=== PATIENT | male | born 1955 | race Caucasian/White ===

== ENCOUNTER → 2018-06-01 08:50 | Outpatient (CLI) | payer MEDICARE, BC, SELFPAY ==
--- NOTE | 2018-06-01 09:20 | RAD_ITS ---
STUDY: SWALLOWING STUDY REASON FOR EXAM: Male, 62 years old. Aspiration pneumonia. TECHNIQUE: The examination was performed with Speech Pathology in attendance. Under fluoroscopic observation, the patient ingested thin barium, thick barium, barium pudding, and barium coated cracker. FLUOROSCOPY TIME: 1:54 minutes/seconds. [id number] images were obtained. RADIOLOGIST INVOLVEMENT: Radiologist was present and providing direct supervision. COMPARISON: None. FINDINGS: The following was observed during swallowing of the various mixtures of barium: Thin Barium: Side aspiration with ingestion of thin liquids during sequential swallowing. This improves with the chin tuck maneuver. Thick Barium: There was no evidence of aspiration or laryngeal penetration. Barium Pudding: There was no evidence of aspiration or laryngeal penetration. RAD/Swallowing Function w/Video IMPRESSION: Side aspiration with sequential swallows of thin liquids. This improves with the chin tuck maneuver. The swallow study findings were discussed with the patient by the speech pathologist at the conclusion of the examination. Please see speech pathology report for more information and recommendations. Electronically Signed: Micky Leggett MD at 10:17 EST Tel [phone], Service support ,
--- NOTE | 2018-06-01 10:34 | SP.MBSS_ITS ---
PRIMARY / SECONDARY DIAGNOSIS: GERD, Talamantes's Esophagus REFERRING PHYSICIAN: Dr. Jordan Zepeda CURRENT DIET: Regular Textures/Thin Liquids DENTITION: upper partial MENTAL STATUS: WFL RESPIRATORY STATUS: O2 via room air PREVIOUS MODIFIED BARIUM SWALLOW STUDY: N/A REASON FOR REFERRAL: Increased coughing the last two months MEDICAL HISTORY: HTN, HLD, GERD, Talamantes's Esophagus, migraines, DVT, CAD, GI Bleed STUDY FINDINGS: Patient participated in a Modified Barium Swallow (MBS) study on 06/01/2018. Dr. Leggett was the radiologist present for this evaluation. This study was recorded in the lateral view and images were sent to PACs for storage. The following consistencies were presented to this patient for analysis of oropharyngeal swallow function: thin liquids, nectar thick liquids, and honey thick liquids. Results of the MBS are as follows: PENETRATION / ASPIRATION SCALE (THORNTON): 1 = does not enter airway 2 = enters airway/above vocal folds/ejected 3 = enters airway/above vocal folds/not ejected 4 = enters airway/contacts vocal folds/ejected 5 = enters airway/contacts vocal folds/not ejected 6 = enters airway/below vocal folds/ejected 7 = enters airway/below vocal folds/not ejected despite effort 8 = enters airway/below vocal folds/no effort PENETRATION / ASPIRATION SCALE (SCORE): 1) honey thick liquid via teaspoon= 2 2) honey thick liquid via single sip from cup= 2 3) Surfside thick liquid via single sip from cup= 2 4) Thin Liquid via single sip from cup= 8 5) Thin Liquid via single sip from cup= 4 6) Thin Liquid via larger sequential sips from cup= 8 7) Surfside thick liquid via single sip from cup= 4 8) Surfside thick liquid via sequential sips from cup= 4 9) Surfside thick liquid via cup= 2 10) Surfside thick liquid via cup= 4 11) Thin Liquid via single sip from cup with chin tuck= 2 12) Thin Liquid via single sip from cup with chin tuck= 4 IMPRESSION: mild-moderate oropharyngeal dysphagia (R13.12) ORAL PHASE CHARACTERIZED BY: LABIAL SEAL: no labial escape TONGUE CONTROL DURING BOLUS MANIPULATION: *Textures not trialed at this time BOLUS PREPARATION / MASTICATION: *Textures not trialed at this time BOLUS TRANSPORT / LINGUAL MOTION: *Textures not trialed at this time ORAL RESIDUE: complete oral clearance PHARYNGEAL PHASE CHARACTERIZED BY: INITIATION OF PHARYNGEAL SWALLOW: bolus head at posterior laryngeal surface of epiglottis at first hyoid excursion SOFT PALATE ELEVATION: no bolus between soft palate and pharyngeal wall LARYNGEAL ELEVATION: partial superior movement of thyroid cartilage/partial approximation of arytenoids cartilage to epiglottic petiole ANTERIOR HYOID EXCURSION: partial anterior movement EPIGLOTTIC MOVEMENT: partial epiglottic inversion LARYNGEAL VESTIBULE CLOSURE AT HEIGHT OF SWALLOW: incomplete laryngeal vestibule closure with narrow column of air/contrast in laryngeal vestibule PHARYNGEAL STRIPPING WAVE: pharyngeal stripping wave present / complete PHARYNGOESOPHAGEAL SEGMENT OPENING: complete distension and complete duration with no obstruction of flow TONGUE BASE RETRACTION:trace column of contrast between tongue base and posterior pharyngeal wall PHARYNGEAL RESIDUE: trace residue within or on pharyngeal structures ESOPHAGEAL PHASE CHARACTERIZED BY: ESOPHAGEAL BOLUS CLEARANCE IN THE UPRIGHT POSITION: could not view EFFECTS OF TREATMENT STRATEGIES ATTEMPTED: Chin tuck posture = moderately effective (still with penetration) DIET TEXTURE RECOMMENDATIONS: Will recommend a regular textured, nectar thick liquid diet COMPENSATORY STRATEGIES RECOMMENDED: reduced bolus volume, reduced rate of intake, avoid straws, seated upright at 90 degrees during PO intake, remain upright for 30-60 minutes post meal (GERD precaution), medications with liquid chaser or puree per patient preference. INTERPRETATION OF RESULTS: Patient presents with mild-moderate oropharyngeal dysphagia (R13.12). Oral phase primarily marked by slight swallow onset delay resulting in premature bolus loss. No trials of textures completed this date as patient's concern was mostly regarding liquid consumption with coughing at home. Pharyngeal phase primarily marked by reduced closure of the airway during deglutition attributed to reduced laryngeal elevation and hyoid excursion resulting in insufficient epiglottic inversion. With trials of thin liquids, patient noted to SILENTLY ASPIRATE despite symptoms at home being overt per patient report. Symptoms somewhat ameliorated with small sip quantities and use of chin tuck posture, however penetration still noted. No overt or silent aspiration noted with nectar thick or honey thick liquid trials in various quantities trialed. The patient has history of Talamantes's Esophagus and GERD with concern that refluxed contents may also be aspirated due to insufficient airway closure. Important to note during this date's assessment that the patient did SILENTLY aspirate with thin liquids, with clinical assessment at bedside relying on identification of classic overt signs and symptoms of aspiration unreliable. RECOMMENDATIONS: Would strongly discourage advancement past nectar thickened liquids without completion of a repeat modified barium swallow study due to the extent of aspirate identified that was SILENT in nature in 4-6 weeks. Would consider implementation of the Mclean Free Water Protocol (FFWP) following patient and family education. Patient requires intensive skilled speech-language intervention targeting continued diet texture management, training and implementation of recommended compensatory strategies, training and implementation of recommended oropharyngeal strengthening exercises to facilitate improved oropharyngeal strength and coordination. laryngeal vestibule closure / pressure and pharyngeal motility. Patient would also make an excellent candidate for the FFWP with training and patient/caregiver education. In addition, it is recommended patient received skilled speech-language intervention to complete training on thickened liquid preparation and foods to avoid all via outpatient therapy location. . REFERRALS: Would consider further referral for neurological workup as the patient reports multiple concerning neurologically based subjective complaints (i.e. pain in left side of face and neck with unexplained cause; difficulty recalling family members last name). ADDITIONAL COMMENTS/RECOMMENDATIONS: Results and recommendations were discussed with the Patient immediately following MBS completion, with the patient verbalizing understanding and agreement with all recommendations and education provided. IMAGE COUNT: [id number] Ariana Martinez M.A., CCC-QUANTITATIVE ANALYST DEVELOPER Speech Language Pathologist [facility] [address] [place] [address] [phone]
--- OUTSIDE RECORDS SUMMARY | 2018-08-03 09:12 | XMS RPT_ITS ---
:1955 Author Organization OHIP Care Team Providers Name Role Phone JORDAN PATEL Attending Unavailable JORDAN PATEL Referring Unavailable JORDAN PATEL Primary Care Unavailable JORDAN PATEL Attending Unavailable JORDAN PATEL Referring Unavailable JORDAN PATEL Primary Care Unavailable JORDAN PATEL MD Attending Unavailable JORDAN PATEL MD Primary Care Unavailable JORDAN PATEL MD Attending Unavailable JORDAN PATEL MD Primary Care Unavailable JORDAN PATEL MD Attending Unavailable JORDAN PATEL MD Primary Care Unavailable JORDAN PATEL MD Attending Unavailable JORDAN PATEL MD Primary Care Unavailable PARVEZ HAWK Attending Unavailable PARVEZ HAWK Referring Unavailable CARINE, PARVEZ E Attending Unavailable CARINE, PARVEZ E Referring Unavailable CARINE, PARVEZ E Referring Unavailable CARINE, PARVEZ E Referring Unavailable CARINE, PARVEZ Attending Unavailable CARINE, PARVEZ Referring Unavailable JORDAN PATEL Primary Care Unavailable CARINE, PARVEZ Attending Unavailable CARINE, PARVEZ Referring Unavailable JORDAN PATEL Primary Care Unavailable PROBLEMS PROBLEMS DATE TYPE CONDITION / CODE ATTENDING STATUS SOURCE 09/14/2017 Admitting Encounter for JORGE AMOR, Active [facility] Diagnosis screening for JRODAN Swapnil [facility] malignant neoplasm Repository of prostate / Z12.5(ICD-10) 09/07/2017 Active Atherosclerotic CARINE, Active [place] heart disease of [facility] Other [place] coronary [place] artery without Repository angina pectoris / I25.10(ICD-10) 09/07/2017 Active Essential (primary) CARINE, Active [place] hypertension / [facility] Other I10(ICD-10) [place] Repository 09/07/2017 Admitting Unknown / CARINE, Active [place] [facility] diagnosis UNK(Unknown) [facility] Repository PROCEDURES PROCEDURES No Procedure Records FoundRESULTS RESULTS CREATININE FINGERSTICK Collected: 06/04/2018 Status: F Source: [place] 10:37 AM [facility] REPOSITORY TYPE CODE TESTS RESULT OUT OF RANGE REFERENCE UNITS LAB L9100.0210 0.70-1.30 mg/dL Normal CREATININE WB 0.8 LAB L9100.0220 >60 mL/min EGFR WB Normal > 60.0000 Performed By: #### L9100.0200 #### [facility] Laboratory Point of Care [address] [place] [address] BRAIN W/WO CONTRAST Observed: 06/04/2018 Status: F Source: [place] 10:29 AM [facility] REPOSITORY [facility] Imaging Services [address] [place] [address] Brain W/WO Contrast MR#: [id number] Acct: [id number] Name: PARVEZ TRONCOSO Rep #: [id number] : 1955 M 62 From: Melida Trotter PCP: Jordan Patel MD Status: REG CLI Study: Brain W/WO Contrast Date of Exam: 06/04/18 Exam# [id number] Ordering Dr: Jordan Patel MD STUDY: MRI BRAIN WITH AND WITHOUT CONTRAST REASON FOR EXAM: Male, 62 years old. Rapid onset of H/A, aspiration, bowel and bladder incontinence, dizziness TECHNIQUE: Standardized multiplanar fat and water weighted pulse sequences were obtained. 7 ml of Gadavist contrast material was administered intravenously for the contrast portion of the examination. COMPARISON: January 06, 2017 FINDINGS: Normal size of the ventricles and extra-axial spaces for the patient's age. There are a limited number of small white matter hyperintensities, distributed throughout the deep white matter tracts of the cerebral hemispheres, consistent with mild chronic white matter ischemic changes. Normal bilateral basal ganglia. Normal thalami. There is no extra-axial fluid accumulation. Normal flow voids within the major intracranial circulation suggesting patency by spin echo criteria. Normal venous enhancement. There is no enhancing intra-axial or extra-axial abnormality. Normal sella turcica, pituitary gland, infundibular stalk, optic chiasm and hypothalamus. Normal tectal plate and pineal gland. Normal midbrain, wilberto and medulla. Normal cerebellum. Normal basal cisterns. Normal bilateral temporal bones. Normal bilateral internal auditory canals. No demonstrated orbital abnormality, within the constraints of a routine brain study. Normal visualized paranasal sinuses. Normal calvarium and skull base. Normal visualized soft tissue structures. Normal visualized upper cervical spine. MRI/Brain W/WO Contrast IMPRESSION: No acute intracranial abnormality or masses. Electronically Signed: Melida Trotter MD at 11:07 EST Tel , Service support , CC: Jordan Patel MD It Engineer: Signed MODIFIED BARIUM Observed: 06/01/2018 Status: F Source: [place] SWALLOW STUDY 11:38 AM [facility] REPOSITORY [facility] Speech Pathology [address] [place] [address] Modified Barium Swallow Study MR#: [id number] Acct: [id number] Name: PARVEZ TRONCOSO Rep #: [id number] : 1955 62 From: Ariana Martinez [facility]-CREDIT COUNSELOR, M.A. PRIMARY / SECONDARY DIAGNOSIS: GERD, Talamantes's Esophagus REFERRING PHYSICIAN: Dr. Jordan Patel CURRENT DIET: Regular Textures/Thin Liquids DENTITION: upper partial MENTAL STATUS: WFL RESPIRATORY STATUS: O2 via room air PREVIOUS MODIFIED BARIUM SWALLOW STUDY: N/A REASON FOR REFERRAL: Increased coughing the last two months MEDICAL HISTORY: HTN, HLD, GERD, Talamantes's Esophagus, migraines, DVT, CAD, GI Bleed STUDY FINDINGS: Patient participated in a Modified Barium Swallow (MBS) study on 06/01/2018. Dr. Leggett was the radiologist present for this evaluation. This study was recorded in the lateral view and images were sent to PACs for storage. The following consistencies were presented to this patient for analysis of oropharyngeal swallow function: thin liquids, nectar thick liquids, and honey thick liquids. Results of the MBS are as follows: PENETRATION / ASPIRATION SCALE (PERALES): 1 = does not enter airway 2 = enters airway/above vocal folds/ejected 3 = enters airway/above vocal folds/not ejected 4 = enters airway/contacts vocal folds/ejected 5 = enters airway/contacts vocal folds/not ejected 6 = enters airway/below vocal folds/ejected 7 = enters airway/below vocal folds/not ejected despite effort 8 = enters airway/below vocal folds/no effort PENETRATION / ASPIRATION SCALE (SCORE): 1) honey thick liquid via teaspoon= 2 2) honey thick liquid via single sip from cup= 2 3) [place] thick liquid via single sip from cup= 2 4) Thin Liquid via single sip from cup= 8 5) Thin Liquid via single sip from cup= 4 6) Thin Liquid via larger sequential sips from cup= 8 7) [place] thick liquid via single sip from cup= 4 8) [place] thick liquid via sequential sips from cup= 4 9) [place] thick liquid via cup= 2 10) [place] thick liquid via cup= 4 11) Thin Liquid via single sip from cup with chin tuck= 2 12) Thin Liquid via single sip from cup with chin tuck= 4 IMPRESSION: mild-moderate oropharyngeal dysphagia (R13.12) ORAL PHASE CHARACTERIZED BY: LABIAL SEAL: no labial escape TONGUE CONTROL DURING BOLUS MANIPULATION: *Textures not trialed at this time BOLUS PREPARATION / MASTICATION: *Textures not trialed at this time BOLUS TRANSPORT / LINGUAL MOTION: *Textures not trialed at this time ORAL RESIDUE: complete oral clearance PHARYNGEAL PHASE CHARACTERIZED BY: INITIATION OF PHARYNGEAL SWALLOW: bolus head at posterior laryngeal surface of epiglottis at first hyoid excursion SOFT PALATE ELEVATION: no bolus between soft palate and pharyngeal wall LARYNGEAL ELEVATION: partial superior movement of thyroid cartilage/partial approximation of arytenoids cartilage to epiglottic petiole ANTERIOR HYOID EXCURSION: partial anterior movement EPIGLOTTIC MOVEMENT: partial epiglottic inversion LARYNGEAL VESTIBULE CLOSURE AT HEIGHT OF SWALLOW: incomplete laryngeal vestibule closure with narrow column of air/contrast in laryngeal vestibule PHARYNGEAL STRIPPING WAVE: pharyngeal stripping wave present / complete PHARYNGOESOPHAGEAL SEGMENT OPENING: complete distension and complete duration with no obstruction of flow TONGUE BASE RETRACTION:trace column of contrast between tongue base and posterior pharyngeal wall PHARYNGEAL RESIDUE: trace residue within or on pharyngeal structures ESOPHAGEAL PHASE CHARACTERIZED BY: ESOPHAGEAL BOLUS CLEARANCE IN THE UPRIGHT POSITION: could not view EFFECTS OF TREATMENT STRATEGIES ATTEMPTED: Chin tuck posture = moderately effective (still with penetration) DIET TEXTURE RECOMMENDATIONS: Will recommend a regular textured, nectar thick liquid diet COMPENSATORY STRATEGIES RECOMMENDED: reduced bolus volume, reduced rate of intake, avoid straws, seated upright at 90 degrees during PO intake, remain upright for 30-60 minutes post meal (GERD precaution), medications with liquid chaser or puree per patient preference. INTERPRETATION OF RESULTS: Patient presents with mild-moderate oropharyngeal dysphagia (R13.12). Oral phase primarily marked by slight swallow onset delay resulting in premature bolus loss. No trials of textures completed this date as patient's concern was mostly regarding liquid consumption with coughing at home. Pharyngeal phase primarily marked by reduced closure of the airway during deglutition attributed to reduced laryngeal elevation and hyoid excursion resulting in insufficient epiglottic inversion. With trials of thin liquids, patient noted to SILENTLY ASPIRATE despite symptoms at home being overt per patient report. Symptoms somewhat ameliorated with small sip quantities and use of chin tuck posture, however penetration still noted. No overt or silent aspiration noted with nectar thick or honey thick liquid trials in various quantities trialed. The patient has history of Talamantes's Esophagus and GERD with concern that refluxed contents may also be aspirated due to insufficient airway closure. Important to note during this date's assessment that the patient did SILENTLY aspirate with thin liquids, with clinical assessment at bedside relying on identification of classic overt signs and symptoms of aspiration unreliable. RECOMMENDATIONS: Would strongly discourage advancement past nectar thickened liquids without completion of a repeat modified barium swallow study due to the extent of aspirate identified that was SILENT in nature in 4-6 weeks. Would consider implementation of the [place] Free Water Protocol (FFWP) following patient and family education. Patient requires intensive skilled speech-language intervention targeting continued diet texture management, training and implementation of recommended compensatory strategies, training and implementation of recommended oropharyngeal strengthening exercises to facilitate improved oropharyngeal strength and coordination. laryngeal vestibule closure / pressure and pharyngeal motility. Patient would also make an excellent candidate for the FFWP with training and patient/caregiver education. In addition, it is recommended patient received skilled speech-language intervention to complete training on thickened liquid preparation and foods to avoid all via outpatient therapy location. . REFERRALS: Would consider further referral for neurological workup as the patient reports multiple concerning neurologically based subjective complaints (i.e. pain in left side of face and neck with unexplained cause; difficulty recalling family members last name). ADDITIONAL COMMENTS/RECOMMENDATIONS: Results and recommendations were discussed with the Patient immediately following MBS completion, with the patient verbalizing understanding and agreement with all recommendations and education provided. IMAGE COUNT: [id number] Ariana Martinez M.A., CCC-CREDIT COUNSELOR Speech Language Pathologist [address] [address] [email or web address] [phone] 06/01/18 1138 <Electronically signed by Ariana Martinez CCC-CREDIT COUNSELOR, MRoniA.> Date Ariana Martinez CCC-CREDIT COUNSELOR, M.A. Co-Signature Required for all Medicare patients Date/Time Co-Signature CC: SWALLOWING FUNCTION Observed: 06/01/2018 Status: F Source: [place] Olsen/VIDEO 8:57 AM [facility] REPOSITORY [facility] Imaging Services [address] [place] [address] Swallowing Function w/Video MR#: [id number] Acct: [id number] Name: PARVEZ TRONCOSO Rep #: [id number] : 1955 M 62 From: Micky Leggett MD PCP: Jordan Patel MD Status: REG CLI Study: Swallowing Function w/Video Date of Exam: 06/01/18 Exam# [id number] Ordering Dr: Jordan Patel MD STUDY: SWALLOWING STUDY REASON FOR EXAM: Male, 62 years old. Aspiration pneumonia. TECHNIQUE: The examination was performed with Speech Pathology in attendance. Under fluoroscopic observation, the patient ingested thin barium, thick barium, barium pudding, and barium coated cracker. FLUOROSCOPY TIME: 1:54 minutes/seconds. 1792 images were obtained. RADIOLOGIST INVOLVEMENT: Radiologist was present and providing direct supervision. COMPARISON: None. FINDINGS: The following was observed during swallowing of the various mixtures of barium: Thin Barium: Side aspiration with ingestion of thin liquids during sequential swallowing. This improves with the chin tuck maneuver. Thick Barium: There was no evidence of aspiration or laryngeal penetration. Barium Pudding: There was no evidence of aspiration or laryngeal penetration. RAD/Swallowing Function w/Video IMPRESSION: Side aspiration with sequential swallows of thin liquids. This improves with the chin tuck maneuver. The swallow study findings were discussed with the patient by the speech pathologist at the conclusion of the examination. Please see speech pathology report for more information and recommendations. Electronically Signed: Micky Leggett MD at 10:17 EST Tel [phone], Service support , CC: Jordan Patel MD It Engineer: Signed XR UPPER GI Observed: 05/06/2018 Status: F Source: [place] 8:15 AM [facility] REPOSIT[facility] ORIGINAL XR UPPER GI Clinical Statement: Gastroesophageal reflux disease Comparison: CT abdomen pelvis 03/30/2017 Procedure: A standard double contrast upper GI was performed. In addition, due to patient description of symptomatology, dedicated lateral views of the upper esophagus were obtained prior to crystal administration. Contrast is seen spilling into the pharynx and upper esophagus prior to patient's initiation of swallowing. There was deep laryngeal penetration identified without discrete aspiration seen on these limi robert views. However, the patient did cough after swallowing raising suspicion for a small amount of unseen aspiration. The esophagus is structurally normal. The esophageal mucosa appears normal. No esophageal dysmotility is realized. The stomach demonstrates normal distensibility. No mass or ulceration is identified. The duodenal bulb and sweep are unremarkable. No gastroesophageal reflux was demonstrated during this examination, despite the performance of maneuvers to elicit GE reflux. No hiatal hernia is identified. Fluoroscopy time: 2 minutes 17 seconds Number of images: 25 Number of films: 6 Dose: 2742.3 [email or web address] IMPRESSION: 1. Deep laryngeal penetration with coughing after swallowing raising suspicion of unseen aspiration. The patient may benefit from a dedicated modified barium swallow evaluation with speech pathology, es pecially given spillage of contrast into the pharynx and upper esophagus prior to the initiation of swallowing. 2. No gastroesophageal reflux was identified despite maneuvers designed to elicit reflux. Interpreted By: Maren Bedolla MD Preliminary Report By: Maren Bedolla MD Electronically Signed By: Maren Bedolla MD Dictated Date: 05/06/2018 9:32:57 AM Prelim Date: 05/06/2018 9:32:57 AM Sign Date: 05/06/2018 9:42:15 AM CAION Collected: 04/23/2018 Status: F Source: [place] 1:16 PM [facility] REPOSITORY TYPE CODE TESTS RESULT OUT OF REFERENCE UNITS RANGE LAB CAION(LOINC 1.12-1.32 mmol/L ) Calcium 1.17 Ionized Performed By: #### CAION, CBC, ADIFF, ANEU #### [place] [address] [place], [place] [address] #### CMP, GFR #### [address] [address] CBC Collected: 04/23/2018 Status: F Source: [facility] 1:16 PM [facility] REPOSITORY TYPE CODE TESTS RESULT OUT OF REFERENCE UNITS RANGE LAB WBC(LOINC) 4.60-10.80 10 3/mcL WBC 9.70 LAB RBCCT(LOINC 4.04-6.13 10 6/mcL ) RBC 4.97 LAB HGB(LOINC) 14.0-18.0 G/dL Hgb 15.6 LAB HCT(LOINC) 42.0-52.0 % Hct 45.3 LAB MCV(LOINC) 80.0-94.0 fL MCV 91.2 LAB MCH(LOINC) 27.0-31.2 pg High MCH 31.4 LAB MCHC(LOINC) 31.8-35.4 G/dL MCHC 34.4 LAB RDW(LOINC) 11.5-14.5 % RDW 13.8 LAB PLT(LOINC) 130-400 10 3/mcL Platelet 312 LAB MPV(LOINC) 7.4-10.4 fL MPV 7.9 Performed By: #### CAION, CBC, ADIFF, ANEU #### [facility] [address] [place], [place] [address] #### CMP, GFR #### [place] [address] .AUTO DIFF Collected: 04/23/2018 Status: F Source: [facility] 1:16 PM [facility] REPOSITORY TYPE CODE TESTS RESULT OUT OF REFERENCE UNITS RANGE LAB EVA(LOINC) 37.0-80.0 % Neutrophil % 69.3 LAB LYM(LOINC) 10.0-50.0 % Lymphocyte % 21.5 LAB MON(LOINC) 1.7-13.0 % Monocyte % 7.3 LAB EO(LOINC) 0.0-7.0 % Eosinophil % 1.1 LAB BAS(LOINC) 0.0-2.5 % Basophil % 0.8 LAB ABLYM(LOIN 0.77-3.85 10 3/mcL C) Lymphocyte, 2.10 Absolute LAB FARNAZ(LOINC 0.15-1.00 10 3/mcL ) Monocyte, 0.70 Absolute LAB AEOS(LOINC 0.00-0.40 10 3/mcL ) Eosinophil, 0.10 Absolute LAB ABAS(LOINC 0.00-0.19 10 3/mcL ) Basophil, 0.10 Absolute Performed By: #### CAION, CBC, ADIFF, ANEU #### [place] [address] [place], [place] [address] #### CMP, GFR #### [address] [address] .NEUABS Collected: 04/23/2018 Status: F Source: [facility] 1:16 PM [facility] REPOSITORY TYPE CODE TESTS RESULT OUT OF REFERENCE UNITS RANGE LAB ANEU(LOINC) 2.85-6.16 10 3/mcL High Neutrophil, 6.70 Absolute Performed By: #### CAION, CBC, ADIFF, ANEU #### [place] [address] [place], [place] [address] #### CMP, GFR #### [address] [address] CMP Collected: 04/23/2018 Status: F Source: [facility] 1:16 PM [facility] REPOSITORY TYPE CODE TESTS RESULT OUT OF REFERENCE UNITS RANGE LAB GLU(LOINC) 80-115 mg/dL Glucose Level 96 LAB NA(LOINC) 136-145 mmol/L Sodium Level 139 LAB K(LOINC) 3.5-5.1 mmol/L Potassium Level 4.6 LAB CL(LOINC) 98-107 mmol/L Chloride 102 LAB CO2(LOINC) 23-31 mmol/L CO2 28 LAB EBAL(LOINC mEq/L ) Electrolyte Balance 9.0 LAB BUN(LOINC) 7-18 mg/dL BUN 18 LAB CRE(LOINC) 0.70-1.30 mg/dL Creatinine Lvl (s) 0.77 LAB BC(LOINC) 7-27 ratio BUN/Creatinine 23 Ratio LAB CA(LOINC) 8.4-10.2 mg/dL Calcium Lvl 9.1 LAB PROT(LOINC 6.4-8.2 G/dL ) Total Protein 7.9 LAB ALB(LOINC) 3.4-4.8 G/dL Albumin Level 4.4 LAB GLB(LOINC) G/dL Globulin 3.5 LAB AG(LOINC) 1.1-2.5 ratio A/G Ratio 1.3 LAB BILT(LOINC 0.2-1.0 mg/dL ) Bili Total 0.6 LAB AP(LOINC) 40-135 U/L Alk Phos 59 LAB AST(LOINC) 10-40 U/L AST/SGOT 24 LAB ALT(LOINC) 10-35 U/L ALT/SGPT High 39 Performed By: #### SANTOSH JOHNSON, AUTUMN, ANEU #### [place] [address] [place], [place] [address] #### CMP, GFR #### [address] [address] .GFR Collected: 04/23/2018 Status: F Source: [facility] 1:16 PM [facility] REPOSIT[facility] TYPE CODE TESTS RESULT OUT OF REFERENCE UNITS RANGE LAB GFRAA(LOINC ml/min/1.73 ) sqm GFR 123 [place] Result Comment: GFR Population mean for , Non- Americans Ages 20-29 = 116 mL/min/1.73 sq.m. Ages 30-39 = 107 mL/min/1.73 sq.m. Ages 40-49 = 99 mL/min/1.73 sq.m. Ages 50-59 = 93 mL/min/1.73 sq.m. Ages 60-69 = 85 mL/min/1.73 sq.m. Ages 70+ = 75 mL/min/1.73 sq.m. Chronic Kidney Disease: Less than 60 mL/min/1.73 square meters End Stage Renal Disease: Less than 15 mL/min/1.73 square meters LAB GFRNO(LOINC) ml/min/1.73sqm GFR Non- 102 Result Comment: GFR Population mean for , Non- Americans Ages 20-29 = 116 mL/min/1.73 sq.m. Ages 30-39 = 107 mL/min/1.73 sq.m. Ages 40-49 = 99 mL/min/1.73 sq.m. Ages 50-59 = 93 mL/min/1.73 sq.m. Ages 60-69 = 85 mL/min/1.73 sq.m. Ages 70+ = 75 mL/min/1.73 sq.m. Chronic Kidney Disease: Less than 60 mL/min/1.73 square meters End Stage Renal Disease: Less than 15 mL/min/1.73 square meters Performed By: #### ELIZABETH, SANTOSH, ADIFF, ANEU #### [place] [address] [place], [place] [address] #### CMP, GFR #### [facility] [address] [place] [address] PROGRESS Observed: 03/11/2018 Status: COMPLETED Source: [place] 3:[address] [facility] REPOSITORY HNO ID: [id number] Author: Rey Powers (Rcep) Service: (none) Author Type: Cloth Piecer Type: Progress Notes Filed: 03/11/2018 3:49 PM Note Text: Preliminary report complete; results under cardiac tab. BRENDA Rosales CNNURSE Observed: 03/11/2018 Status: COMPLETED Source: [place] 3:[address] [facility] REPOSITORY Nurse Visit (CAWSTR) PARVEZ TRONCOSO ([id number]) 1955 M Date Time Provider Department 03/11/18 3:00 PM NURSE [facility] CAWSTR During your visit today, we recorded the following information about you: BRENDA Rosales 03/11/2018 3:49 PM Signed Preliminary report complete; results under cardiac tab. BRENDA Rosales Referring Provider: PARVEZ HAWK [[id number]] Allergies As of Date: 03/11/2018 Noted Allergy Reaction BEES 09/07/2017 10 - Anaphylaxis DURICEF (CEFADROXIL) 11/06/2006 2 - Rash NIASPAN (NIACIN) 02/19/2012 16 - Unknown trinilin [Other] 11/06/2006 2 - Rash Date Reviewed: 02/25/2018 Reviewed by: Dipak Rock RN - Fully Assessed Primary Visit Diagnosis:Chest pain, unspecified type [R07.9] Prescriptions as of 03/11/2018 Sig: LOSARTAN 50 MG TABLET Take 50 mg by mouth once mikaela* VERAPAMIL ER 180 MG 24 HR CAP* TAKE 1 CAPSULE BY MOUTH ONCE * APIXABAN 5 MG TABLET Take 5 mg by mouth twice mikaela* PULMICORT INHALATION Inhale 2 Puffs as instructed * ALBUTEROL SULFATE HFA 90 MCG/* Inhale 2 Puffs as instructed * ROSUVASTATIN 10 MG TABLET Take 5 mg by mouth daily at b* PANTOPRAZOLE 40 MG TABLET,DEL* Take 1 tablet by mouth once d* NITROGLYCERIN 0.4 MG SUBLINGU* Dissolve 1 tablet under the t* ASPIRIN 81 MG TABLET Take 81 mg by mouth. * MULTI-VITAMIN ORAL Take by mouth once daily. Problem List As Of Date 03/11/2018 Noted Resolved Hemorrhage of gastrointestinal tract, unspecifi*INVALID FOR*08/17/2014 Talamantes's esophagus [K22.70] INVALID FOR*08/17/2014 Special screening for malignant neoplasms, colo*INVALID FOR*03/09/2015 Encounter Status:Closed by Rey TOURE on 03/11/18 BASIC METABOLIC PANL Collected: 02/25/2018 Status: F Source: [place] 3:34 PM [facility] TYPE CODE TESTS RESULT OUT OF REFERENCE UNITS RANGE LAB GLU 74-99 mg/dL Glucose High 104 LAB BUN 7-21 mg/dL BUN 15 LAB CRET 0.73-1.22 mg/dL Low Creatinine 0.63 LAB NA 136-144 mmol/L Sodium 136 LAB K 3.7-5.1 mmol/L Potassium 4.3 LAB CL 97-105 mmol/L Chloride 102 LAB CO2 22-30 mmol/L CO2 23 LAB AGAP 9-18 mmol/L Anion Gap 11 LAB CA 8.5-10.2 mg/dL Calcium, Total 9.6 LAB GFRAA eGFR- >60 Amer. LAB GFRNAA . eGFR-All Other Races >60 Result Comment: eGFR (Estimated GFR) Units of measure: mL/min/1.73 meters squared eGFR is derived from the reexpressed MDRD Study equation using the following parameters: serum creatinine, age, gender and race. The creatinine assay has been calibrated to be traceable to IDMS. An eGFR <60 mL/min/1.73m2 for >3 months is consistent with chronic kidney disease. Refer to KDOQI guidelines for clinical interpretation. In patients with unstable renal function, e.g. those with acute kidney injury, the eGFR may not accurately reflect actual GFR. MAGNESIUM Collected: 02/25/2018 Status: F Source: [place] 3:[address] [facility] REPOSITORY TYPE CODE TESTS RESULT OUT OF REFERENCE UNITS RANGE LAB MG 1.7-2.3 mg/dL Magnesium 2.1 LIPID PANEL, NONFAST Collected: 02/25/2018 Status: F Source: [place] 3:[address] [facility] REPOSITORY TYPE CODE TESTS RESULT OUT OF REFERENCE UNITS RANGE LAB CHOLNF <200 mg/dL Total Cholesterol NF 156 Result Comment: <200 mg/dL, Desirable 200-239 mg/dL, Borderline high >239 mg/dL, High LAB TRIGNF <150 mg/dL Triglycerides, NF 76 Result Comment: <150 mg/dL, Normal 150-199 mg/dL, Borderline high 200-499 mg/dL, High >499 mg/dL, Very high LAB HDLNF >39 mg/dL HDL Cholesterol, NF 48 Result Comment: 40-59 mg/dL, Acceptable >59 mg/dL, High: Negative risk factor for coronary heart disease <40 mg/dL, Low: Positive risk factor for coronary heart disease LAB LDLNF <100 mg/dL LDL Cholesterol, NF 93 Result Comment: <100 mg/dL, Optimal 100-129 mg/dL, Near optimal/above optimal 130-159 mg/dL, Borderline high 160-189 mg/dL, High >189 mg/dL, Very high Secondary prevention optimal LDL Cholesterol levels are recommended to be < 70 mg/dL LAB NOHDLN <130 mg/dL Non HDL Chol, 108 NF Result Comment: <130 mg/dL, Optimal 130-159 mg/dL, Near optimal/above optimal 160-189 mg/dL, Borderline high 190-219 mg/dL, High >219 mg/dL, Very high Secondary prevention optimal non HDL Cholesterol levels are recommended to be < 100 mg/dL LAB VLDLNF <30 mg/dL VLDL Cholesterol, NF 15 LAB TCHDLN <5.10 mg/dL T Chol/HDL Ratio NF 3.25 LAB LDLHDN <2.54 mg/dL LDL/HDL Ratio, NF 1.94 Result Comment: Reference: 1. National Cholesterol Education Program ATP III Guideline At-A-Glance Quick Desk Reference: National Heart, Lung, and Blood Sieper. National Institutes of Health. 2001: NIH Publication No. 01-3305. 2. An International Atherosclerosis Society position paper: global recommendations for the management of dyslipidemia: executive summary, Atherosclerosis. 2014: 232(2):410-413. 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/25, recurrent, lifelong A/C ADHERENCE TO GUIDELINES YVOANY-I or ARB for HF with prior LVEF<40 (NQF 0081) - N/A ASA or Plavix for ASHD (NQF 0067) - met Beta alexandra for ASHD with prior KS or prior LVEF<40 (NQF 0070) - >10 years since event Beta alexandra for HF with prior LVEF<40 (NQF 0083) - N/A YOVANY-I or ARB for ASHD with DM or prior LVEF<40 (NQF 0066) - met Statin therapy for ASHD or FHL or DM - met BMI documented and plan if >25 (NQF 0421) - lifestyle recommendation form Tobacco use screening and referral (NQF 0028) - lifestyle recommendation form Recommendation for whole food, plant based diet - lifestyle recommendation form CLINICAL IMPRESSION/PLAN: Parvez Troncoso is having chest discomfort which is concerning for possible ischemia, but apparently not severe enough to prompt him to use nitroglycerin. He was reminded of the appropriate use and I encouraged him to go to emergency department if he has any chest discomfort which is unrelieved by single nitroglycerin. He has had false positive stress ECG in the past. I advised him to undergo treadmill nuclear stress test for further evaluation of this pain syndrome. This will be compared to his stress test of 2016 He has had pericarditis in the past, but the pain is atypical and I do not hear a friction rub today. Blood pressure was somewhat high today. I've asked him to check vital signs daily and contact me next week. For the time being, he will continue his current medication. Labs will be updated today. Written and verbal health teaching given to patient, patient verbalizes understanding and agrees with treatment plan. DIAGNOSIS FOR VISIT: ASHD Hypertension HISTORY OF PRESENT ILLNESS Parvez Troncoso returns for follow-up of multiple cardiac issues, as noted above. He has had multiple episodes of chest discomfort over the last month. These are described as a pressure-like sensation in the chest with occasional radiation into the left shoulder and arm. They can occasionally be associated with nausea and shaking. However, his exercise tolerance has been unchanged. These episodes have occurred at rest. There has been no pleuritic component. He has not been evaluated in the emergency department. He has not tried any nitroglycerin. He denies orthopnea and edema. He's had no syncope, TIAs, amaurosis and claudication. He notes that he has been under more stress at home. ALLERGIES: ALLERGIES Allergen Reactions - Bees Anaphylaxis - Duricef [Cefadroxil] Rash - Niaspan [Niacin] Unknown - Trinilin [Other] Rash CURRENT OUTPATIENT MEDICATIONS: losartan (COZAAR) 50 mg tablet Take 50 mg by mouth once daily. verapamil ER 180 mg 24 hr capsule TAKE 1 CAPSULE BY MOUTH ONCE DAILY. apixaban (ELIQUIS) 5 mg tab tab(s) Take 5 mg by mouth twice daily. BUDESONIDE (PULMICORT INHALATION) Inhale 2 Puffs as instructed every morning. albuterol HFA (PROAIR HFA) 90 mcg/actuation inhaler Inhale 2 Puffs as instructed every 4 hours as needed. rosuvastatin (CRESTOR) 10 mg tablet Take 5 mg by mouth daily at bedtime. pantoprazole (PROTONIX) 40 mg tablet Take 1 tablet by mouth once daily. nitroglycerin sublingual 0.4 mg SL tablet Dissolve 1 tablet under the tongue as needed. FOR CHEST PAIN. IF NO RELIEF CALL 911 Aspirin 81 mg Tab Take 81 mg by mouth. MULTI-VITAMIN ORAL Take by mouth once daily. PHYSICAL EXAMINATION: VITAL SIGNS: BP 155/85 Pulse 62 Wt 185 lb 6.4 oz (84.1kg) Chest: Clear to auscultation. Trachea is midline. Air entry is equal. Cardiac: Regular rhythm. S1 and S2 are normal. PMI is nondisplaced. There are no murmurs, rubs or gallops. Carotids are brisk without bruits. JVP is less than 10 cm. Abdomen: Soft and nontender. There are no pulsatile masses or bruits. No liver enlargement. Bowel sounds are active. Extremities: Trace edema. Pulses are intact and symmetrical. EKG shows sinus bradycardia and evidence of previous inferior KS. There is no significant change. Recent labs reviewed. LDL is 92. Renal function is normal. Electronically Signed: Parvez Hawk MD February 25, 2018 2:16 PM CC: Jordan Patel MD EKG1 Observed: 02/25/2018 Status: F Source: [place] 1:[address] [facility] REPOSITORY NAME : PARVEZ TRONCOSO PID : [id number] : 1955 Gender : Male Race : ORD : Procedure Date : Feb 25 2018 13:49:16 Edit Date : Feb 27 2018 11:06:59 Diagnosis:SINUS BRADYCARDIA RSR' PATTERN IN V1 SUGGESTS INCOMPLETE RIGHT BUNDLE BRANCH BLOCK POSSIBLE INFERIOR MYOCARDIAL INFARCTION , AGE UNDETERMINED ABNORMAL ECG NO SIGNIFICANT CHANGE FROM PREVIOUS ECG Confirmed by PARVEZ HAWK MD ([id number]) on 02/27/2018 11:06:53 AM Ventricular Rate : 59 BPM Atrial Rate : 59 BPM P-R Interval : 166 ms QRS Duration : 86 ms Q-T Interval : 402 ms QTC Calculation(Bezet) : 397 ms P Barton : 26 degrees R Barton : -13 degrees T Barton : 34 degrees Test Reason : Location : 136 : CAR Overread By : PARVEZ HAWK MD Edited By : PARVEZ HAWK MD Referred By : PARVEZ HAWK Acquired by : ADITI MITCHELL Observed: 02/25/2018 Status: COMPLETED Source: [place] 1:[address] 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, recurrent, lifelong A/C ADHERENCE TO GUIDELINES YOVANY-I or ARB for HF with prior LVEF<40 (NQF 0081) - N/A ASA or Plavix for ASHD (NQF 0067) - met Beta alexandra for ASHD with prior KS or prior LVEF<40 (NQF 0070) - >10 years since event Beta alexandra for HF with prior LVEF<40 (NQF 0083) - N/A YOVANY-I or ARB for ASHD with DM or prior LVEF<40 (NQF 0066) - met Statin therapy for ASHD or FHL or DM - met BMI documented and plan if >25 (NQF 0421) - lifestyle recommendation form Tobacco use screening and referral (NQF 0028) - lifestyle recommendation form Recommendation for whole food, plant based diet - lifestyle recommendation form CLINICAL IMPRESSION/PLAN: Parvez Troncoso is having chest discomfort which is concerning for possible ischemia, but apparently not severe enough to prompt him to use nitroglycerin. He was reminded of the appropriate use and I encouraged him to go to emergency department if he has any chest discomfort which is unrelieved by single nitroglycerin. He has had false positive stress ECG in the past. I advised him to undergo treadmill nuclear stress test for further evaluation of this pain syndrome. This will be compared to his stress test of 2016 He has had pericarditis in the past, but the pain is atypical and I do not hear a friction rub today. Blood pressure was somewhat high today. I've asked him to check vital signs daily and contact me next week. For the time being, he will continue his current medication. Labs will be updated today. Written and verbal health teaching given to patient, patient verbalizes understanding and agrees with treatment plan. DIAGNOSIS FOR VISIT: ASHD Hypertension HISTORY OF PRESENT ILLNESS Parvez Troncoso returns for follow-up of multiple cardiac issues, as noted above. He has had multiple episodes of chest discomfort over the last month. These are described as a pressure-like sensation in the chest with occasional radiation into the left shoulder and arm. They can occasionally be associated with nausea and shaking. However, his exercise tolerance has been unchanged. These episodes have occurred at rest. There has been no pleuritic component. He has not been evaluated in the emergency department. He has not tried any nitroglycerin. He denies orthopnea and edema. He's had no syncope, TIAs, amaurosis and claudication. He notes that he has been under more stress at home. ALLERGIES: ALLERGIES Allergen Reactions - Bees Anaphylaxis - Duricef [Cefadroxil] Rash - Niaspan [Niacin] Unknown - Trinilin [Other] Rash CURRENT OUTPATIENT MEDICATIONS: losartan (COZAAR) 50 mg tablet Take 50 mg by mouth once daily. verapamil ER 180 mg 24 hr capsule TAKE 1 CAPSULE BY MOUTH ONCE DAILY. apixaban (ELIQUIS) 5 mg tab tab(s) Take 5 mg by mouth twice daily. BUDESONIDE (PULMICORT INHALATION) Inhale 2 Puffs as instructed every morning. albuterol HFA (PROAIR HFA) 90 mcg/actuation inhaler Inhale 2 Puffs as instructed every 4 hours as needed. rosuvastatin (CRESTOR) 10 mg tablet Take 5 mg by mouth daily at bedtime. pantoprazole (PROTONIX) 40 mg tablet Take 1 tablet by mouth once daily. nitroglycerin sublingual 0.4 mg SL tablet Dissolve 1 tablet under the tongue as needed. FOR CHEST PAIN. IF NO RELIEF CALL 911 Aspirin 81 mg Tab Take 81 mg by mouth. MULTI-VITAMIN ORAL Take by mouth once daily. PHYSICAL EXAMINATION: VITAL SIGNS: BP 155/85 Pulse 62 Wt 185 lb 6.4 oz (84.1kg) Chest: Clear to auscultation. Trachea is midline. Air entry is equal. Cardiac: Regular rhythm. S1 and S2 are normal. PMI is nondisplaced. There are no murmurs, rubs or gallops. Carotids are brisk without bruits. JVP is less than 10 cm. Abdomen: Soft and nontender. There are no pulsatile masses or bruits. No liver enlargement. Bowel sounds are active. Extremities: Trace edema. Pulses are intact and symmetrical. EKG shows sinus bradycardia and evidence of previous inferior KS. There is no significant change. Recent labs reviewed. LDL is 92. Renal function is normal. Electronically Signed: Parvez Hawk MD February 25, 2018 2:16 PM CC: MD Parvez Salas MD 02/25/2018 2:19 PM Signed LIFESTYLE CHANGE A healthy lifestyle is the most important component of your overall treatment plan. Please give serious thought to the following areas and commit to making termite technician changes. EAT A WHOLE FOOD, PLANT BASED DIET The nutrition your body gets is more important than the medicine you take. What matters most is the overall way you eat. We encourage you to minimize the use of animal products (which include dairy and all meats except fatty fish) and use whole, unprocessed plant foods to provide your protein, vitamins and other nutrients. We have a lot of information to share with you on this topic. This is not a diet. It is a way of life that you will keep with you. EXERCISE REGULARLY It is not important to spend hours in the gym, lifting weights and perspiring heavily. A total of 2-3 hours per week of aerobic (causing you to be moderately short of breath) exercise is sufficient to improve your health. Talk to us before you begin a new exercise program, if you have heart disease or experience shortness of breath or chest pain. REDUCE STRESS Chronic emotional and physical stress leads to disease. Ways of reducing stress include meditation, visualization, prayer, yoga and other forms of relaxation therapy. Consistency is the perales. Find a technique that works for you and do it every day. CULTIVATE RELATIONSHIPS Loneliness and isolation have a major negative impact on health. Seek out others who can love, care for and nurture you. Avoid hurtful relationships. MAINTAIN IDEAL BODY WEIGHT The best way to do this is to do all the things above. Our bodies naturally find the right weight if we keep moving and feed ourselves the right food. If your BMI is greater than 25, we strongly recommend a referral to a weight management program. Please speak to us or your family physician about available programs. AVOID NICOTINE IN ALL FORMS This includes all tobacco products, whether chewed, smoked, vaped, or rubbed on the skin. Smoking cessation programs, which can make use of tobacco substitutes, medications to suppress cravings and behavior management, are available. Please contact your family physician about programs in your area. Referring Provider: SELF [[id number]] Allergies As of Date: 02/25/2018 Noted Allergy Reaction BEES 09/07/2017 10 - Anaphylaxis DURICEF (CEFADROXIL) 11/06/2006 2 - Rash NIASPAN (NIACIN) 02/19/2012 16 - Unknown trinilin [Other] 11/06/2006 2 - Rash Date Reviewed: 02/25/2018 Reviewed by: Dipak Rock RN - Fully Assessed Reason for Visit: Recheck [92] Primary Visit Diagnosis:ASHD (arteriosclerotic heart disease) [I25.10] Other Visit Diagnosis:Essential hypertension [I10] Order(s):ECG COMPLETE W INTERPRETATION [ECG01] Order #: [id number] FUTURE IV DISCONTINUE [[id number]] Order #: [id number]: 1 IV START - SPECIFY [[id number]] Order #: [id number]: 1 EXERCISE STRESS W/NUC IMAGING [[id number]] Order #: [id number]: 1 NM CARDIAC PERF STRESS/EXERCISE [[id number]] Order #: [id number] BMP PLUS FHC [SQPICBMP] Order #: [id number] FUTURE LIPID PANEL, NONFASTING [SQLIPNF] Order #: [id number] FUTURE Prescriptions as of 02/25/2018 Sig: LOSARTAN 50 MG TABLET Take 50 mg by mouth once mikaela* VERAPAMIL ER 180 MG 24 HR CAP* TAKE 1 CAPSULE BY MOUTH ONCE * APIXABAN 5 MG TABLET Take 5 mg by mouth twice mikaela* PULMICORT INHALATION Inhale 2 Puffs as instructed * ALBUTEROL SULFATE HFA 90 MCG/* Inhale 2 Puffs as instructed * ROSUVASTATIN 10 MG TABLET Take 5 mg by mouth daily at b* PANTOPRAZOLE 40 MG TABLET,DEL* Take 1 tablet by mouth once d* NITROGLYCERIN 0.4 MG SUBLINGU* Dissolve 1 tablet under the t* ASPIRIN 81 MG TABLET Take 81 mg by mouth. * MULTI-VITAMIN ORAL Take by mouth once daily. 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 Please give serious thought to the following areas and commit to making termite technician changes. EAT A WHOLE FOOD, PLANT BASED DIET The nutrition your body gets is more important than the medicine you take. What matters most is the overall way you eat. We encourage you to minimize the use of animal products (which include dairy and all meats except fatty fish) and use whole, unprocessed plant foods to provide your protein, vitamins and other nutrients. We have a lot of information to share with you on this topic. This is not a diet. It is a way of life that you will keep with you. EXERCISE REGULARLY It is not important to spend hours in the gym, lifting weights and perspiring heavily. A total of 2-3 hours per week of aerobic (causing you to be moderately short of breath) exercise is sufficient to improve your health. Talk to us before you begin a new exercise program, if you have heart disease or experience shortness of breath or chest pain. REDUCE STRESS Chronic emotional and physical stress leads to disease. Ways of reducing stress include meditation, visualization, prayer, yoga and other forms of relaxation therapy. Consistency is the perales. Find a technique that works for you and do it every day. CULTIVATE RELATIONSHIPS Loneliness and isolation have a major negative impact on health. Seek out others who can love, care for and nurture you. Avoid hurtful relationships. MAINTAIN IDEAL BODY WEIGHT The best way to do this is to do all the things above. Our bodies naturally find the right weight if we keep moving and feed ourselves the right food. If your BMI is greater than 25, we strongly recommend a referral to a weight management program. Please speak to us or your family physician about available programs. AVOID NICOTINE IN ALL FORMS This includes all tobacco products, whether chewed, smoked, vaped, or rubbed on the skin. Smoking cessation programs, which can make use of tobacco substitutes, medications to suppress cravings and behavior management, are available. Please contact your family physician about programs in your area. Encounter Status:Closed by PARVEZ HAWK MD on 02/25/18 CNNURSE Observed: 02/25/2018 Status: COMPLETED Source: [place] 11:[address] [facility] REPOSITORY Nurse Visit (ILWSTR) PARVEZ TRONCOSO ([id number]) 1955 M Date Time Provider Department 02/25/18 11:00 AM [facility] During your visit today, we recorded the following information about you: Dipak Rock RN 02/25/2018 3:44 PM Signed Ekg completed per order. Pt tolerated procedure without distress. Dipak Rock RN Referring Provider: PARVEZ HAWK [[id number]] Allergies As of Date: 02/25/2018 Noted Allergy Reaction BEES 09/07/2017 10 - Anaphylaxis DURICEF (CEFADROXIL) 11/06/2006 2 - Rash NIASPAN (NIACIN) 02/19/2012 16 - Unknown trinilin [Other] 11/06/2006 2 - Rash Date Reviewed: 02/25/2018 Reviewed by: Dipak Rock RN - Fully Assessed Reason for Visit: Nurse Visit [792] Visit Diagnoses:ASHD (arteriosclerotic heart disease) [I25.10] Essential hypertension [I10] Order(s):ECG COMPLETE W INTERPRETATION [ECG01] Order #: [id number] Prescriptions as of 02/25/2018 Sig: LOSARTAN 50 MG TABLET Take 50 mg by mouth once mikaela* VERAPAMIL ER 180 MG 24 HR CAP* TAKE 1 CAPSULE BY MOUTH ONCE * APIXABAN 5 MG TABLET Take 5 mg by mouth twice mikaela* PULMICORT INHALATION Inhale 2 Puffs as instructed * ALBUTEROL SULFATE HFA 90 MCG/* Inhale 2 Puffs as instructed * ROSUVASTATIN 10 MG TABLET Take 5 mg by mouth daily at b* PANTOPRAZOLE 40 MG TABLET,DEL* Take 1 tablet by mouth once d* NITROGLYCERIN 0.4 MG SUBLINGU* Dissolve 1 tablet under the t* ASPIRIN 81 MG TABLET Take 81 mg by mouth. * MULTI-VITAMIN ORAL Take by mouth once daily. 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 Pt tolerated procedure without distress. Dipak Rock RN Encounter Status:Closed by DIPAK ROCK RN on 02/25/18 PSA Collected: 09/14/2017 Status: F Source: [facility] 10:20 AM [facility] [place] REPOSITORY TYPE CODE TESTS RESULT OUT OF REFERENCE UNITS RANGE LAB PSA(LOINC) 0.00-4.00 ng/mL Prostate 1.27 Specific Antigen Performed By: #### PSA #### [address] [address] CBC Collected: 09/07/2017 Status: F Source: [facility] 12:53 PM [facility] [place] REPOSITORY TYPE CODE TESTS RESULT OUT OF REFERENCE UNITS RANGE LAB WBC(LOINC) 4.60-10.80 10 3/mcL WBC 8.60 LAB RBCCT(LOINC 4.04-6.13 10 6/mcL ) RBC 5.23 LAB HGB(LOINC) 14.0-18.0 G/dL Hgb 16.2 LAB HCT(LOINC) 42.0-52.0 % Hct 47.1 LAB MCV(LOINC) 80.0-94.0 fL MCV 89.9 LAB MCH(LOINC) 27.0-31.2 pg MCH 30.9 LAB MCHC(LOINC) 31.8-35.4 G/dL MCHC 34.4 LAB RDW(LOINC) 11.5-14.5 % RDW 13.6 LAB PLT(LOINC) 130-400 10 3/mcL Platelet 377 LAB MPV(LOINC) 7.4-10.4 fL MPV 7.8 Performed By: #### CBC, ADIFF, ANEU, LIPID, CMP, GFR, A1C #### [address] [address] .AUTO DIFF Collected: 09/07/2017 Status: F Source: [facility] 12:53 PM [facility] [place] REPOSITORY TYPE CODE TESTS RESULT OUT OF REFERENCE UNITS RANGE LAB EVA(LOINC) 37.0-80.0 % Neutrophil % 68.5 LAB LYM(LOINC) 10.0-50.0 % Lymphocyte % 21.3 LAB MON(LOINC) 1.7-13.0 % Monocyte % 8.8 LAB EO(LOINC) 0.0-7.0 % Eosinophil % 0.8 LAB BAS(LOINC) 0.0-2.5 % Basophil % 0.6 LAB ABLYM(LOIN 0.77-3.85 10 3/mcL C) Lymphocyte, 1.80 Absolute LAB FARNAZ(LOINC 0.15-1.00 10 3/mcL ) Monocyte, 0.80 Absolute LAB AEOS(LOINC 0.00-0.40 10 3/mcL ) Eosinophil, 0.10 Absolute LAB ABAS(LOINC 0.00-0.19 10 3/mcL ) Basophil, 0.10 Absolute Performed By: #### CBC, ADIFF, ANEU, LIPID, CMP, GFR, A1C #### [place] [place], [place] [address] .NEUABS Collected: 09/07/2017 Status: F Source: [facility] 12:53 [facility] REPOSITORY TYPE CODE TESTS RESULT OUT OF REFERENCE UNITS RANGE LAB ANEU(LOINC) 2.85-6.16 10 3/mcL Neutrophil, 5.90 Absolute Performed By: #### CBC, ADIFF, ANEU, LIPID, CMP, GFR, A1C #### [address] [place] [place], [place] [address] LIPID Collected: 09/07/2017 Status: F Source: [facility] 12:53 [facility] REPOSITORY TYPE CODE TESTS RESULT OUT OF REFERENCE UNITS RANGE LAB CHOL(LOINC 131-200 mg/dL ) Cholesterol 158 Result Comment: Cholesterol Reference Interval: Less than 200 Desirable 200-239 Borderline high risk 240 and above High risk LAB TRIG(LOINC) 40-150 mg/dL Triglycerides 104 Result Comment: Triglyceride Reference Interval: Less than 150 Normal 150-199 Borderline high risk 200-499 High risk 500 or higher Very high risk LAB HD(LOINC) 35-90 mg/dL HDL Cholesterol 46 Result Comment: HDL Reference Interval: Less than 40 Low - high risk 60 or above Optimal/lowers risk LAB LDL(LOINC) 0-130 mg/dL LDL Cholesterol 91 Result Comment: LDL is a calculated result and requires a 12-hr fast. LDL Reference Interval: Less than 100 Optimal 100-129 Near or above optimal 130-159 Borderline high risk 160-189 High risk 190 and above Very high risk Performed By: #### CBC, ADIFF, ANEU, LIPID, CMP, GFR, A1C #### [address] [place], [place] [address] CMP Collected: 09/07/2017 Status: F Source: [facility] 12:53 PM [facility] [place] REPOSITORY TYPE CODE TESTS RESULT OUT OF REFERENCE UNITS RANGE LAB 1547-9 80-115 mg/dL GLUCOSE 103 LAB NA(LOINC) 136-146 mEq/L Sodium Level 138 LAB K(LOINC) 3.5-5.1 mEq/L Potassium High Level 5.2 LAB CL(LOINC) 98-107 mEq/L Chloride 100 LAB CO2(LOINC) 23-31 mEq/L CO2 26 LAB EBAL(LOINC mEq/L ) Electrolyte Balance 12.0 LAB BUN(LOINC) 7.0-18.0 mg/dL BUN 10.6 LAB CRE(LOINC) 0.6-1.2 mg/dL Creatinine Lvl (s) 0.7 LAB BC(LOINC) 7-27 ratio BUN/Creatinine 15 Ratio LAB CA(LOINC) 8.4-10.2 mg/dL Calcium Lvl High 10.4 LAB PROT(LOINC 6.0-8.3 G/dL ) Total Protein 7.7 LAB ALB(LOINC) 3.4-4.8 G/dL Albumin Level 4.5 LAB GLB(LOINC) G/dL Globulin 3.2 LAB AG(LOINC) 1.1-2.5 ratio A/G Ratio 1.4 LAB BILT(LOINC 0.2-1.0 mg/dL ) Bili Total 0.5 LAB AP(LOINC) 40-135 IU/L Alk Phos 69 LAB AST(LOINC) 10-40 IU/L AST/SGOT 21 LAB ALT(LOINC) 10-35 IU/L ALT/SGPT 35 Performed By: #### CBC, ADIFF, ANEU, LIPID, CMP, GFR, A1C #### [address] [address] .GFR Collected: 09/07/2017 Status: F Source: [facility] 12:53 PM [facility] [place] REPOSITORY TYPE CODE TESTS RESULT OUT OF REFERENCE UNITS RANGE LAB GFRAA(LOINC ml/min/1.73 ) sqm GFR 130 Irish Result Comment: GFR Population mean for , Non- Americans Ages 20-29 = 116 mL/min/1.73 sq.m. Ages 30-39 = 107 mL/min/1.73 sq.m. Ages 40-49 = 99 mL/min/1.73 sq.m. Ages 50-59 = 93 mL/min/1.73 sq.m. Ages 60-69 = 85 mL/min/1.73 sq.m. Ages 70+ = 75 mL/min/1.73 sq.m. Chronic Kidney Disease: Less than 60 mL/min/1.73 square meters End Stage Renal Disease: Less than 15 mL/min/1.73 square meters LAB GFRNO(LOINC) ml/min/1.73sqm GFR Non- >60 Result Comment: GFR Population mean for , Non- Americans Ages 20-29 = 116 mL/min/1.73 sq.m. Ages 30-39 = 107 mL/min/1.73 sq.m. Ages 40-49 = 99 mL/min/1.73 sq.m. Ages 50-59 = 93 mL/min/1.73 sq.m. Ages 60-69 = 85 mL/min/1.73 sq.m. Ages 70+ = 75 mL/min/1.73 sq.m. Chronic Kidney Disease: Less than 60 mL/min/1.73 square meters End Stage Renal Disease: Less than 15 mL/min/1.73 square meters Performed By: #### CBC, ADIFF, ANEU, LIPID, CMP, GFR, A1C #### [address] [address] A1C Collected: 09/07/2017 Status: F Source: [place] 12:53 PM [facility]ATION REPOSITORY TYPE CODE TESTS RESULT OUT OF RANGE REFERENCE UNITS LAB A1C(LOINC) 4.8-5.9 % High Hgb A1c 6.5 Performed By: #### CBC, ADIFF, ANEU, LIPID, CMP, GFR, A1C #### [address] [address] PROGRESS Observed: 09/07/2017 Status: COMPLETED Source: [place] 8:46 AM CLINIC OTHER CAMPUS REPOSITORY HNO ID: [id number] Author: Parvez Hawk Service: (none) Author Type: Physician Type: Progress Notes Filed: 09/07/2017 5:56 PM Note Text: PERTINENT CARDIAC HISTORY Chest pain - abnormal tpn-I, possible vasospasm Transient cardiomyopathy EF 25% 2006- resolved HTN HL APRIL - CPAP ASHD - mild by cath 2011 Pericarditis DVT - 12/25 ADHERENCE TO GUIDELINES YOVANY-I or ARB for HF with prior LVEF<40 (NQF 0081) - N/A ASA or Plavix for ASHD (NQF 0067) - met Beta alexandra for ASHD with prior KS or prior LVEF<40 (NQF 0070) - >10 years since event Beta alexandra for HF with prior LVEF<40 (NQF 0083) - N/A YOVANY-I or ARB for ASHD with DM or prior LVEF<40 (NQF 0066) - met Statin therapy for ASHD or FHL or DM - met BMI documented and plan if >25 (NQF 0421) - lifestyle recommendation form Tobacco use screening and referral (NQF 0028) - lifestyle recommendation form Recommendation for whole food, plant based diet - lifestyle recommendation form CLINICAL IMPRESSION/PLAN: Parvez Troncoso is doing reasonably well. His ischemic heart disease is under good control. He is now on losartan as lisinopril was causing a cough. I reminded him that lipid profile is due. I suggested that he discuss duration of treatment with Eliqugabbi with Dr. Patel. 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 I will see him in 8 months or as needed. If there is increased chest pain or shortness of breath, he has been advised to contact me. Written and verbal health teaching given to patient, patient verbalizes understanding and agrees with treatment plan. DIAGNOSIS FOR VISIT: ASHD Hypertension HISTORY OF PRESENT ILLNESS Parvez Troncoso returns for follow-up of multiple cardiac issues, as noted above. He has had no recent chest discomfort. He reports that he recently had bronchitis. Exercise tolerance has been stable. He's had no edema, syncope, palpitations, TIAs, amaurosis or claudication. ALLERGIES: ALLERGIES Allergen Reactions - Bees Anaphylaxis - Duricef [Cefadroxil] Rash - Niaspan [Niacin] Unknown - Trinilin [Other] Rash CURRENT OUTPATIENT MEDICATIONS: losartan (COZAAR) 50 mg tablet Take 50 mg by mouth once daily. verapamil ER 180 mg 24 hr capsule TAKE 1 CAPSULE BY MOUTH ONCE DAILY. apixaban (ELIQUIS) 5 mg tab tab(s) Take 5 mg by mouth twice daily. BUDESONIDE (PULMICORT INHALATION) Inhale 2 Puffs as instructed every morning. albuterol HFA (PROAIR HFA) 90 mcg/actuation inhaler Inhale 2 Puffs as instructed every 4 hours as needed. rosuvastatin (CRESTOR) 10 mg tablet Take 5 mg by mouth daily at bedtime. pantoprazole (PROTONIX) 40 mg tablet Take 1 tablet by mouth once daily. nitroglycerin sublingual 0.4 mg SL tablet Dissolve 1 tablet under the tongue as needed. FOR CHEST PAIN. IF NO RELIEF CALL 911 Aspirin 81 mg Tab Take 81 mg by mouth. MULTI-VITAMIN ORAL Take by mouth once daily. PHYSICAL EXAMINATION: VITAL SIGNS: BP 120/82 Pulse 64 Ht 5' 9 (1.75m) Wt 183 lb 9.6 oz (83.3kg) BMI 27.10 kg/(m2). Chest: Clear to percussion and auscultation. Trachea is midline. Air entry is equal. Cardiac: Regular rhythm. S1 and S2 are normal. PMI is nondisplaced. There are no murmurs, rubs or gallops. Carotids are brisk without bruits. JVP is less than 10 cm. Abdomen: Soft and nontender. There are no pulsatile masses or bruits. No liver enlargement. Bowel sounds are active. Extremities: Trace edema. Pulses are intact and symmetrical. Recent labs reviewed. Renal function is normal. LDL was 92. Electronically Signed: Parvez Hawk MD September 07, 2017 8:46 AM CC: Jordan Patel MD CNOV Observed: 09/07/2017 Status: COMPLETED Source: [place] 8:30 AM CLINIC OTHER [place] REPOSITORY Office Visit (AGCARDWST) PARVEZ TRONCOSO ([id number]) 1955 M Date Time Provider Department 09/07/17 8:30 AM PARVEZ HAWK AGCARDBISMARK During your visit today, we recorded the following information about you: Pulse Blood pressure Weight Height 64/minute 120/82 83.3 kg 1.753 m Parvez Hawk MD 09/07/2017 5:56 PM Addendum PERTINENT CARDIAC HISTORY Chest pain - abnormal tpn-I, possible vasospasm Transient cardiomyopathy EF 25% 2005- resolved HTN HL APRIL - CPAP ASHD - mild by cath 2011 Pericarditis DVT - 12/25 ADHERENCE TO GUIDELINES YOVANY-I or ARB for HF with prior LVEF<40 (NQF 0081) - N/A ASA or Plavix for ASHD (NQF 0067) - met Beta alexandra for ASHD with prior KS or prior LVEF<40 (NQF 0070) - >10 years since event Beta alexandra for HF with prior LVEF<40 (NQF 0083) - N/A YOVANY-I or ARB for ASHD with DM or prior LVEF<40 (NQF 0066) - met Statin therapy for ASHD or FHL or DM - met BMI documented and plan if >25 (NQF 0421) - lifestyle recommendation form Tobacco use screening and referral (NQF 0028) - lifestyle recommendation form Recommendation for whole food, plant based diet - lifestyle recommendation form CLINICAL IMPRESSION/PLAN: Parvez Troncoso is doing reasonably well. His ischemic heart disease is under good control. He is now on losartan as lisinopril was causing a cough. I reminded him that lipid profile is due. I suggested that he discuss duration of treatment with Xi with Dr. Patel. 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 I will see him in 8 months or as needed. If there is increased chest pain or shortness of breath, he has been advised to contact me. Written and verbal health teaching given to patient, patient verbalizes understanding and agrees with treatment plan. DIAGNOSIS FOR VISIT: ASHD Hypertension HISTORY OF PRESENT ILLNESS Parvez Troncoso returns for follow-up of multiple cardiac issues, as noted above. He has had no recent chest discomfort. He reports that he recently had bronchitis. Exercise tolerance has been stable. He's had no edema, syncope, palpitations, TIAs, amaurosis or claudication. ALLERGIES: ALLERGIES Allergen Reactions - Bees Anaphylaxis - Duricef [Cefadroxil] Rash - Niaspan [Niacin] Unknown - Trinilin [Other] Rash CURRENT OUTPATIENT MEDICATIONS: losartan (COZAAR) 50 mg tablet Take 50 mg by mouth once daily. verapamil ER 180 mg 24 hr capsule TAKE 1 CAPSULE BY MOUTH ONCE DAILY. apixaban (ELIQUIS) 5 mg tab tab(s) Take 5 mg by mouth twice daily. BUDESONIDE (PULMICORT INHALATION) Inhale 2 Puffs as instructed every morning. albuterol HFA (PROAIR HFA) 90 mcg/actuation inhaler Inhale 2 Puffs as instructed every 4 hours as needed. rosuvastatin (CRESTOR) 10 mg tablet Take 5 mg by mouth daily at bedtime. pantoprazole (PROTONIX) 40 mg tablet Take 1 tablet by mouth once daily. nitroglycerin sublingual 0.4 mg SL tablet Dissolve 1 tablet under the tongue as needed. FOR CHEST PAIN. IF NO RELIEF CALL 911 Aspirin 81 mg Tab Take 81 mg by mouth. MULTI-VITAMIN ORAL Take by mouth once daily. PHYSICAL EXAMINATION: VITAL SIGNS: BP 120/82 Pulse 64 Ht 5' 9 (1.75m) Wt 183 lb 9.6 oz (83.3kg) BMI 27.10 kg/(m2). Chest: Clear to percussion and auscultation. Trachea is midline. Air entry is equal. Cardiac: Regular rhythm. S1 and S2 are normal. PMI is nondisplaced. There are no murmurs, rubs or gallops. Carotids are brisk without bruits. JVP is less than 10 cm. Abdomen: Soft and nontender. There are no pulsatile masses or bruits. No liver enlargement. Bowel sounds are active. Extremities: Trace edema. Pulses are intact and symmetrical. Recent labs reviewed. Renal function is normal. LDL was 92. Electronically Signed: Parvez Hawk MD September 07, 2017 8:46 AM CC: MD Parvez Salas MD 09/07/2017 8:46 AM Signed LIFESTYLE CHANGE A healthy lifestyle is the most important component of your overall treatment plan. Please give serious thought to the following areas and commit to making prison changes. EAT A WHOLE FOOD, PLANT BASED DIET The nutrition your body gets is more important than the medicine you take. What matters most is the overall way you eat. We encourage you to minimize the use of animal products (which include dairy and all meats except fatty fish) and use whole, unprocessed plant foods to provide your protein, vitamins and other nutrients. We have a lot of information to share with you on this topic. We also hold Shared Medical Appointments, where you can come visit with Dr. Hawk in the company of other patients and spend over an hour talking about the challenges of changing the way you eat. This is not a diet. It is a way of life that you will keep with you. EXERCISE REGULARLY It is not important to spend hours in the gym, lifting weights and perspiring heavily. A total of 2-3 hours per week of aerobic (causing you to be moderately short of breath) exercise is sufficient to improve your health. Talk to us before you begin a new exercise program, if you have heart disease or experience shortness of breath or chest pain. REDUCE STRESS Chronic emotional and physical stress leads to disease. Ways of reducing stress include meditation, visualization, prayer, yoga and other forms of relaxation therapy. Consistency is the perales. Find a technique that works for you and do it every day. CULTIVATE RELATIONSHIPS Loneliness and isolation have a major negative impact on health. Seek out others who can love, care for and nurture you. Avoid hurtful relationships. MAINTAIN IDEAL BODY WEIGHT The best way to do this is to do all the things above. Our bodies naturally find the right weight if we keep moving and feed ourselves the right food. If your BMI is greater than 25, we strongly recommend a referral to a weight management program. Please speak to us or your family physician about available programs. AVOID NICOTINE IN ALL FORMS This includes all tobacco products, whether chewed, smoked, vaped, or rubbed on the skin. Smoking cessation programs, which can make use of tobacco substitutes, medications to suppress cravings and behavior management, are available. Please contact your family physician about programs in your area. Referring Provider: PARVEZ HAWK [[id number]] Allergies As of Date: 09/07/2017 Noted Allergy Reaction BEES 09/07/2017 10 - Anaphylaxis DURICEF (CEFADROXIL) 11/06/2006 2 - Rash NIASPAN (NIACIN) 02/19/2012 16 - Unknown trinilin [Other] 11/06/2006 2 - Rash Date Reviewed: 09/07/2017 Reviewed by: Viviana Esteban - Fully Assessed Reason for Visit: Follow Up [171] Primary Visit Diagnosis:ASHD (arteriosclerotic heart disease) [I25.10] Other Visit Diagnosis:Hypertension, essential [I10] Prescriptions as of 09/07/2017 Sig: LOSARTAN 50 MG TABLET Take 50 mg by mouth once mikaela* VERAPAMIL ER 180 MG 24 HR CAP* TAKE 1 CAPSULE BY MOUTH ONCE * APIXABAN 5 MG TABLET Take 5 mg by mouth twice mikaela* PULMICORT INHALATION Inhale 2 Puffs as instructed * ALBUTEROL SULFATE HFA 90 MCG/* Inhale 2 Puffs as instructed * ROSUVASTATIN 10 MG TABLET Take 5 mg by mouth daily at b* PANTOPRAZOLE 40 MG TABLET,DEL* Take 1 tablet by mouth once d* NITROGLYCERIN 0.4 MG SUBLINGU* Dissolve 1 tablet under the t* ASPIRIN 81 MG TABLET Take 81 mg by mouth. * MULTI-VITAMIN ORAL Take by mouth once daily. 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 Please give serious thought to the following areas and commit to making termite technician changes. EAT A WHOLE FOOD, PLANT BASED DIET The nutrition your body gets is more important than the medicine you take. What matters most is the overall way you eat. We encourage you to minimize the use of animal products (which include dairy and all meats except fatty fish) and use whole, unprocessed plant foods to provide your protein, vitamins and other nutrients. We have a lot of information to share with you on this topic. We also hold Shared Medical Appointments, where you can come visit with Dr. Hawk in the company of other patients and spend over an hour talking about the challenges of changing the way you eat. This is not a diet. It is a way of life that you will keep with you. EXERCISE REGULARLY It is not important to spend hours in the gym, lifting weights and perspiring heavily. A total of 2-3 hours per week of aerobic (causing you to be moderately short of breath) exercise is sufficient to improve your health. Talk to us before you begin a new exercise program, if you have heart disease or experience shortness of breath or chest pain. REDUCE STRESS Chronic emotional and physical stress leads to disease. Ways of reducing stress include meditation, visualization, prayer, yoga and other forms of relaxation therapy. Consistency is the perales. Find a technique that works for you and do it every day. CULTIVATE RELATIONSHIPS Loneliness and isolation have a major negative impact on health. Seek out others who can love, care for and nurture you. Avoid hurtful relationships. MAINTAIN IDEAL BODY WEIGHT The best way to do this is to do all the things above. Our bodies naturally find the right weight if we keep moving and feed ourselves the right food. If your BMI is greater than 25, we strongly recommend a referral to a weight management program. Please speak to us or your family physician about available programs. AVOID NICOTINE IN ALL FORMS This includes all tobacco products, whether chewed, smoked, vaped, or rubbed on the skin. Smoking cessation programs, which can make use of tobacco substitutes, medications to suppress cravings and behavior management, are available. Please contact your family physician about programs in your area. Medications Discontinued During This Encounter lisinopril (PRINIVIL) 10 mg tablet 30 t* 11 03/09/2017 09/07/2017 Route: ORAL Sig: Take 1 tablet by mouth once daily. Patient not taking: Reported on 09/07/2017 Disc: Reason for discontinue is not on file. Encounter Status:Closed by PARVEZ HAWK MD on 09/07/17 ALLERGIES ALLERGIES DATE TYPE / CODE NAME / CODE REACTION SEVERITY SOURCE Environ/[id number]( BEES ANAPHYLAXIS [place] [address]) [facility] Other [place] [facility] Drug cefadroxil Rash Unknown [place] 7 Allergy/238732686( hydrate/W656831 [facility]) [facility](RXNORM) Hospital Repository Drug niacin/[id number] Rash Unknown [place] 7 Allergy/992076157( 50(RXNORM) [facility] SNOM[facility]) Hospital Repository Drug bee venom Anaphylaxis Unknown [place] 7 Allergy/774508907( protein (honey [facility] SNOMED CT) bee)/[id number] Hospital (RXNORM) Repository Miscellaneous TRINALIN Rash Unknown [place] 7 Allergy/707679802( Community SNOMED CT) Hospital Repository DRUG NIACIN UNKNOWN [place] 2 INGREDI/641719977( [facility] Other SNOMED CT) [place] [facility] DRUG CEFADROXIL RASH [place] 7 INGREDI/507591253( [facility] SNOMED CT) [place] [facility] 06/29/200 Miscellaneous OTHER RASH [place] 7 Allergy/747483662( Clinic Other SNOMED CT) [place] [facility] NG/429209203(SNOME BEES [facility] D [facility]) [facility] Repository NG/244029966(SNOME CEFADROXIL [facility]) [facility] System Repository NG/512582162(SNOME NIACIN [facility]) [facility] Repository NG/473611231(SNOME OTHER [facility]) Health System Repository ENCOUNTERS ENCOUNTERS ADMIT/DISCHARGE ACCOUNT NUMBER ADMITTING ENCOUNTER LOCATION SOURCE CLASS 06/04/2018 [id number] [facility] ding:MRI Repository 06/01/2018 [id number] [facility] ding:RAD Repository 05/17/2018 [id number] Ambulatory [facility] MEDICAL Repository CENTERBuildi ng:ALEXI 05/06/2018/05/06/20 [id number] Ambulatory BBuilding:RA Jil [address] [place] [address] Repository 04/23/2018/04/23/20 [id number] Ambulatory BBuilding:OL Jil[address] Repository 03/11/2018/03/11/20 [id number] Ambulatory [address] Main [place] Repository 02/25/2018/02/26/20 [id number] Ambulatory [address] [place] Rep[place] 02/25/2018/02/26/20 [id number] Ambulatory [address] [place] Repository 02/25/2018/02/27/20 [id number] Ambulatory [address] [place] Repository 09/14/2017/09/19/19 [id number] Ambulatory [address] ding:[facility] Repository 09/07/2017/09/08/19 [id number] Ambulatory JIL [address] [facility] 09/07/2017/09/08/19 [id number] Ambulatory [address] [place] Repository 09/07/2017/09/08/19 [id number] Ambulatory [address] MEDICAL Repository CENTERBuildi ng:ALEXI PAYERS PAYERS ENCOUNTER GUARANTOR PAYER SUBSCRIBER SOURCE 06/04/2018 PARVEZ D Primary PARVEZ D [place] [id number] ALON Insurance:HUMANA [place]OB: [place] PPOPolicy [id number] [address]Tcm: (330) Number: Repository [phone] () [id number] Date:3953-40-44CE [address] [place] [id number]: 06/04/2018 Secondary PARVEZ D [place] Insurance:ANTHEMPolicy BURNSDOB: Community Number: [id number] [id number] Repository Date:[id number] [address] [place] [address]CD: 06/04/2018 Tertiary NOT GIVENUNK [place] Insurance:SELF PAY [facility], [place]) Number: Effective Repository Date:2018-06-02 06/01/2018 PARVEZ D Primary PARVEZ D [place] [id number] AL[place] Insurance:HUMANA [place]SDOB: [place] PPOPolicy [id number] [address]Tsp: (330) Number: Repository [phone] () [id number] Date:[id number] [address]HO: 06/01/2018 Secondary PARVEZ D [place] Insurance:ANTHEMPolicy BURNSDOB: Community Number: [id number] [id number] Repository Date:[id number] [address] [place] [address]MU: 06/01/2018 Tertiary NOT GIVENUNK [place] Insurance:SELF PAY [facility] ([place], [place]) Number: Effective Repository Date:2018-05-24 05/17/2018 PARVEZ D Primary Insurance:BLUE PARVEZ D [facility] BURNSDOB: ACCESS PPOPolicy BURNSDOB: Health System Number: [id number] Repository ALON [id number] [place] Date: [address]Kur: (HP) 05/06/2018 [facility] BURNSDOB: Insurance:ANTHEM BLUE BURNSDOB: [facility] [id number] Repository ALON Number: Purnima RAMOS [place] [id number] [place] [address]Piq: (330) Date:2018-05-03Tel: [phone] [phone] (HP)Tel: ([phone]) Name:BPO BOX (HP) (WP) [id number], [place] 000[address] (WP) [address]QO: 04/23/2018 [facility] BURNSDOB: Insurance:ANTHEM BLUE BURNSDOB: [facility] [id number] Repository ALON Number: 1 AL[address] [place] [id number] [place] [address]Xjy: (330) Date:2018-04-23Tel: [id number] [phone] (HP)Tel: ([phone]) Name:BPO BOX (HP) (WP) [id number], [place] 000[address] (WP) [id number]: 09/14/2017 [facility] BURNSDOB: Insurance:ANTHEM BLUE BURNSDOB: [facility] WH[facility] [id number] Repository ALON Number: 1 AL[place] [id number] [place], [place] [address]Vnb: (330) Date:2017-09-14Tel: [id number] [phone] (HP)Tel: ([phone]) Name:BPO BOX (HP) (WP) [id number], [place] 000[address] () [id number]: 09/07/2017 PARVEZ Pritchett Primary PARVEZ Yarely [facility] BURNSDOB: Insurance:ZACHARY NORWAY BURNSDOB: [facility] [id number] Repository ALON Number: 1 [place] [place] [id number] [place] [address]Jjk: (980) Date:2017-09-07Tel: [phone] [phone] ()Tel: ([phone]) Name:BRIGIDO GONZÁLES () () [id number] [place] 000-[address] () [address]KC: 09/07/2017 PARVEZ Pritchett Primary Insurance:DENISE Pritchett [facility] BURNSDOB: [facility] BURNSDOB: Health System Number: [id number] Repository ALON [id number] [place] Date: [address]Izs: ()
== END ==
PROVIDERS: Family Provider Family Medicine; PCP Family Medicine; Referring Provider Family Medicine; Visit Provider Family Medicine
DX: T17.908A Unspecified foreign body in respiratory tract, part unspecified causing other injury, initial encounter (principal)
CPT/HCPCS: 74230; 92611

== ENCOUNTER → 2018-06-04 10:19 | Outpatient (CLI) | payer MEDICARE, BC, SELFPAY ==
--- NOTE | 2018-06-04 10:45 | MRI_ITS ---
STUDY: MRI BRAIN WITH AND WITHOUT CONTRAST REASON FOR EXAM: Male, 62 years old. Rapid onset of H/A, aspiration, bowel and bladder incontinence, dizziness TECHNIQUE: Standardized multiplanar fat and water weighted pulse sequences were obtained. 7 ml of Gadavist contrast material was administered intravenously for the contrast portion of the examination. COMPARISON: January 06, 2017 FINDINGS: Normal size of the ventricles and extra-axial spaces for the patient's age. There are a limited number of small white matter hyperintensities, distributed throughout the deep white matter tracts of the cerebral hemispheres, consistent with mild chronic white matter ischemic changes. Normal bilateral basal ganglia. Normal thalami. There is no extra-axial fluid accumulation. Normal flow voids within the major intracranial circulation suggesting patency by spin echo criteria. Normal venous enhancement. There is no enhancing intra-axial or extra-axial abnormality. Normal sella turcica, pituitary gland, infundibular stalk, optic chiasm and hypothalamus. Normal tectal plate and pineal gland. Normal midbrain, wilberto and medulla. Normal cerebellum. Normal basal cisterns. Normal bilateral temporal bones. Normal bilateral internal auditory canals. No demonstrated orbital abnormality, within the constraints of a routine brain study. Normal visualized paranasal sinuses. Normal calvarium and skull base. Normal visualized soft tissue structures. Normal visualized upper cervical spine. MRI/Brain W/WO Contrast IMPRESSION: No acute intracranial abnormality or masses. Electronically Signed: Melida Trotter MD at 11:07 EST Tel , Service support ,
[2018-06-04 10:51] LABS: CREATININE FINGERSTICK 0.8 mg/dL (0.70-1.30); EGFR FINGERSTICK > 60.0000 mL/min (>60)
== END ==
PROVIDERS: Family Provider Family Medicine; PCP Family Medicine; Referring Provider Family Medicine; Visit Provider Family Medicine
DX: T17.908A Unspecified foreign body in respiratory tract, part unspecified causing other injury, initial encounter (principal); Z01.812 Encounter for preprocedural laboratory examination
CPT/HCPCS: 70553; A9585

== ENCOUNTER → 2018-06-25 13:27 | Outpatient (CLI) | payer MEDICARE, SELFPAY ==
--- NOTE | 2018-06-25 13:29 | RAD_ITS ---
STUDY: SWALLOWING STUDY REASON FOR EXAM: Male, 63 years old. Dysphagia. TECHNIQUE: The examination was performed with Speech Pathology in attendance. Under fluoroscopic observation, the patient ingested thin barium, thick barium, barium pudding, and barium coated cracker. FLUOROSCOPY TIME: 2:07 minutes/seconds. 1998 fluoroscopic images were obtained. RADIOLOGIST INVOLVEMENT: Radiologist was present and providing direct supervision. COMPARISON: Comparison is made with prior study dated June 01, 2018. FINDINGS: The following was observed during swallowing of the various mixtures of barium: Thin Barium: There was no evidence of aspiration or laryngeal penetration. Thick Barium: There was no evidence of aspiration or laryngeal penetration. Barium Pudding: There was no evidence of aspiration or laryngeal penetration. Barium Coated Cracker: There was no evidence of aspiration or laryngeal penetration. RAD/Swallowing Function w/Video IMPRESSION: Normal tailored barium swallow study. No evidence of increased risk for aspiration. The swallow study findings were discussed with the patient by the speech pathologist at the conclusion of the examination. Please see speech pathology report for more information and recommendations. Electronically Signed: Micky Leggett MD at 15:46 EST , Service support ,
--- NOTE | 2018-06-25 13:30 | SP.MBSS_ITS ---
PRIMARY / SECONDARY DIAGNOSIS: dysphagia (R13.12) REFERRING PHYSICIAN: Dr. Jordan Zepeda MD. CURRENT DIET: regular textures, thin liquids DENTITION: WFL MENTAL STATUS: WNL RESPIRATORY STATUS: O2 via room air PREVIOUS MODIFIED BARIUM SWALLOW STUDY: 06/01/2018 MBS results were personally reviewed, with the Patient presenting with mild to moderate pharyngeal dysphagia (SPS: 4-5; DSRS: 4) with very questionable grade III SILENT aspiration of thin liquids on one occasion (report details one additional occurrence) with transient penetration with thin and nectar thickened liquids. REASON FOR REFERRAL: The Patient is a 62 year old male referred for a clinical assessment of the swallow function at [facility] on 06/10/2018 due to persistent dysphagia, with recent assessment under fluoroscopy detailing findings of SILENT aspiration during ingestion of thin liquids, though the presents of silent aspiration is questionable, with full re- assessment with therapeutic postures indicated to determine the least restrictive means of safe PO intake. 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 Dr. Leggett was the radiologist present for this evaluation. This study was recorded in the lateral view and images were sent to PACs for storage. The following consistencies were presented to this patient for analysis of oropharyngeal swallow function: thin liquids, pudding, and a regular textured, Ivanna Doone cookie. Results of the MBS are as follows: PENETRATION / ASPIRATION SCALE (TH[place]ON): 1 = does not enter airway 2 = enters airway/above vocal folds/ejected 3 = enters airway/above vocal folds/not ejected 4 = enters airway/contacts vocal folds/ejected 5 = enters airway/contacts vocal folds/not ejected 6 = enters airway/below vocal folds/ejected 7 = enters airway/below vocal folds/not ejected despite effort 8 = enters airway/below vocal folds/no effort VIDEOFLOROSCOPIC SCALE SCORE ([place]ON): Grade I = aspiration of material that has penetrated into the laryngeal vestibule, intact cough reflex Grade II = aspiration < 10 % of the bolus, intact cough reflex Grade III = aspiration of < 10 % of the bolus, reduced cough reflex or aspiration of > 10 % of the bolus, intact cough reflex Grade IV = aspiration of > 10 % of the bolus, reduced cough reflex PENETRATION / ASPIRATION SCALE (SCORE) WITH VIDEOFLOROSCOPIC SCALE SCORE: Thin liquid - 5 mL tsp.: 1 Thin liquids via cup (sequential swallows): 1 Thin liquids via straw (sequential swallows): 1 Thin liquids via straw (chin tuck): NA* Thin liquids via straw (chin tuck): 1 Thin liquids via straw (chin tuck): 1 Thin liquids via straw (chin tuck): 7 ? Grade II Thin liquids via straw (chin tuck): 1 Thin liquids via straw (chin tuck): 1 Regular textured cookie: 1 Thin liquids via straw (chin tuck): NA Pudding via spoon: NA * could not completely view image recorded in the anteroposterior view IMPRESSION: DIAGNOSIS: mild to moderate pharyngeal dysphagia (R13.13) Dysphagia Severity Rating Scale (DSRS): 3-4 (mild to moderate) ORAL PHASE CHARACTERIZED BY: LABIAL SEAL: no labial escape TONGUE CONTROL DURING BOLUS MANIPULATION: cohesive bolus between tongue to palatal seal BOLUS PREPARATION / MASTICATION: timely and efficient chewing and mashing BOLUS TRANSPORT / LINGUAL MOTION: brisk tongue motion ORAL RESIDUE: trace residue lining oral structures PHARYNGEAL PHASE CHARACTERIZED BY: INITIATION OF PHARYNGEAL SWALLOW: bolus head in pyriforms at first hyoid excursion SOFT PALATE ELEVATION: no bolus between soft palate and pharyngeal wall LARYNGEAL ELEVATION: complete superior movement of thyroid cartilage with complete approximation of arytenoids cartilage to epiglottic petiole ANTERIOR HYOID EXCURSION: complete anterior movement EPIGLOTTIC MOVEMENT: complete epiglottic inversion LARYNGEAL VESTIBULE CLOSURE AT HEIGHT OF SWALLOW: complete laryngeal vestibule closure with no air/contrast in laryngeal vestibule PHARYNGEAL STRIPPING WAVE: pharyngeal stripping wave present / complete PHARYNGEAL CONTRACTION (A/P VIEW ONLY): complete PHARYNGOESOPHAGEAL SEGMENT OPENING: complete distension and complete duration with no obstruction of flow TONGUE BASE RETRACTION: trace column of contrast between tongue base and posterior pharyngeal wall PHARYNGEAL RESIDUE: trace residue within or on pharyngeal structures ESOPHAGEAL PHASE CHARACTERIZED BY: ESOPHAGEAL BOLUS CLEARANCE IN THE UPRIGHT POSITION: complete clearance; esophageal coating EFFECTS OF TREATMENT STRATEGIES ATTEMPTED: Chin tuck posture = effective Reduced bolus size = effective DIET TEXTURE RECOMMENDATIONS: Will recommend a regular textured, thin liquid diet. COMPENSATORY STRATEGIES RECOMMENDED: Chin tuck with liquids, reduced bolus volume, reduced rate of intake, straws with all liquids, seated upright at 90 degrees during PO intake, remain upright for 30-60 minutes post meal (GERD precaution), medications whole with purees INTERPRETATION OF RESULTS: Patient presents with mild to moderate pharyngeal dysphagia (DSRS: 3-4) with grade II overt aspiration of thin liquids secondary to primary presbyphagia in the absence of a clearly defined etiology of cause. Oral preparatory and oral transitional phases overall unremarkable. Pharyngeal phase marked by pharyngeal phase dyssynchrony resulting in suboptimal bolus placement upon pharyngeal phase swallow onset directly attributed to the preprandial and prandial penetration and grade II overt aspiration of thin liquids without optimal execution of the chin tuck posture; sufficient laryngeal vestibule closure with excellent laryngeal vestibule pressure generated to expel penetrated material with an immediate and strong cough response that sufficiently cleared all laryngotracheal aspiration; adequate pharyngeal motility and velopharyngeal valving. All deficits ameliorated with bolus volume adjustments and optimal execution of the chin tuck posture in combination with an anterior / forward leaning seated posture. RECOMMENDATIONS: Will recommend continued skilled speech-language intervention targeting continued diet texture management and training / implementation of recommended compensatory strategies, though would anticipate a quick progression through the remainder of the treatment cycle, as the Patient has demonstrated consistent execution of all recommended precautions to date. ADDITIONAL COMMENTS/RECOMMENDATIONS: Results and recommendations were discussed with the Patient immediately following MBS completion, with the Patient verbalizing understanding and agreement with all recommendations and education provided. IMAGE COUNT: [id number] Will Cortés M.A., CCC-FISH ROE PROCESSOR MBSImP Certified, LSVT Certified [facility] Speech-Language Pathology Department [email or web address]
== END ==
PROVIDERS: Family Provider Family Medicine; PCP Family Medicine; Referring Provider Family Medicine; Visit Provider Family Medicine
DX: T17.908A Unspecified foreign body in respiratory tract, part unspecified causing other injury, initial encounter (principal)
CPT/HCPCS: 74230

== ENCOUNTER → 2018-08-25 05:45 | Outpatient (CLI) | payer MEDICARE, SELFPAY ==
--- NOTE | 2018-08-25 09:05 | STRESSREP_ITS ---
Stress Test Report Exercise myocardial perfusion stress test. 63-year-old male with a history of chest pain. Medications: Eliquis, verapamil, Protonix, losartan. Stress protocol: Resting EKG demonstrates sinus bradycardia with a rate of 56 bpm normal intervals are noted resting blood pressure is 128/80 mmHg. The patient exercised according to regular [place] protocol for total duration of 7 minutes and 15 seconds. The maximum heart rate was 144 bpm which was 92% of maximum predicted heart rate the maximum workload was 8.9 metabolic equivalents. Meagan ent maintained sinus rhythm throughout the recording. At rest there were no ST or T wave changes noted suggest ischemia at peak exercise upsloping ST changes were noted to suggest ischemia. The resting blood pressures 128/80 with a peak blood pressure 160/84 mmHg. Myocardial perfusion protocol. 11.0 mCi of technetium 99m sestamibi was injected at rest. The patient exercised according to regular [place] protocol. At peak exercise 33.2 mCi of technetium 99m sestamibi was injected stress images were obtained stress and rest images were reconstructed and compared in the short axis vertical long horizontal long axis. Gated images were also obtained per Perfusion SPECT analysis: Review of the stress images demonstrate normal uptake of tracer noted in all areas of the myocardium. The resting images similarly demonstrate normal uptake of tracer noted in all areas of the myocardium. No areas of reversibility are noted suggest ischemia no previous infarct is noted. Gated SPECT analysis: The gated ejection fraction is 72%. Conclusion: Normal exercise myocardial perfusion stress test at a moderate workload. Preserved ejection fraction.
== END ==
PROVIDERS: Family Provider Family Medicine; PCP Family Medicine; Referring Provider Family Medicine; Visit Provider Family Medicine
DX: R07.9 Chest pain, unspecified (principal); R01.1 Cardiac murmur, unspecified
CPT/HCPCS: 78452; 93017; A9500; A4216

== ENCOUNTER → 2018-08-30 07:24 | Outpatient (CLI) | payer MEDICARE, SELFPAY ==
--- NOTE | 2018-08-30 07:28 | VDLE_ITS ---
Reason For Study: LEG SWELLING RIGHT LEFT GSV is normal. CFV is compressible, spontaneous, phasic, CFV is compressible, spontaneous, phasic, competent, and demonstrates normal competent and demonstrates normal augmentation. augmentation. FV is compressible, spontaneous, phasic, competent and demonstrates normal augmentation. POP V is compressible, spontaneous, phasic, competent and demonstrates normal augmentation. T/P Trunk is compressible. PTV is compressible. RT PerV is compressible. Procedure Exam performed in department. A preliminary report was called and/or faxed to Dr. Zepeda. Interpretation Summary Deep veins of the right lower extremity are patent and compressible segmentally. There is no evidence of right lower extremity deep vein thrombosis. Valvular competence appears intact within the proximal deep venous system on the right . The right greater saphenous vein appears patent and compressible segmentally. Ordering Physician: Jordan Zepeda Referring Physician: Emil Hammonds MD Performed By: Gely Francois RVT
== END ==
PROVIDERS: Family Provider Family Medicine; PCP Family Medicine; Referring Provider Family Medicine; Visit Provider Family Medicine
DX: R01.1 Cardiac murmur, unspecified (principal); R60.0 Localized edema
CPT/HCPCS: 93306; 93971

== ENCOUNTER → 2018-09-14 10:41 | Outpatient (CLI) | payer MEDICARE, SELFPAY ==
[2018-09-14 12:14] LABS: Hemoglobin A1c 6.5 % (4.2-6.3)
[2018-09-14 12:29] LABS: Vitamin B12 577 pg/mL (211-911)
[2018-09-14 12:30] LABS: Rheumatoid Factor < 10.0 IU/mL (<15); Thyroid Stim Hormone (TSH) 1.64 uIU/mL (0.358-3.74)
[2018-09-15 22:07] LABS: SJOGREN'S Anti-SS-A test < 0.2 AI (0.0-0.9); SJOGREN'S Anti-SS-B test < 0.2 AI (0.0-0.9)
[2018-09-16 15:48] LABS: ANTINUCLEAR ANTIBODIES DIRECT Negative (Negative)
[2018-09-24 03:06] LABS: Cytoplasmic Ab (C-ANCA) <1:20 titer (Neg:<1:20); PROEL- A/G Ratio 1.2 (0.7-1.7); PROEL- Albumin 3.9 g/dL (2.9-4.4); PROEL- Alpha-1 Globulin 0.3 g/dL (0.0-0.4); PROEL- Alpha-2 Globulin 0.8 g/dL (0.4-1.0); PROEL- Beta Globulin 1.3 g/dL (0.7-1.3); PROEL- Globulin, Total 3.3 g/dL (2.2-3.9); PROEL- TOTAL PROTEIN 7.2 g/dL (6.0-8.5)
[2018-09-24 10:26] LABS: ACHR AB Modulating <12 % (0-20); ACHR Recep AB, Blocking 17 % (0-25); Acetylcholine Receptor Binding < 0.03 nmol/L (0.00-0.24); Perinuclear Ab (P-ANCA) <1:20 titer (Neg:<1:20)
== END ==
PROVIDERS: Family Provider Family Medicine; PCP Family Medicine; Referring Provider Psychiatry & Neurology Neurology; Visit Provider Psychiatry & Neurology Neurology
DX: R20.0 Anesthesia of skin (principal); Z79.899 Other long term (current) drug therapy; T17.920A Food in respiratory tract, part unspecified causing asphyxiation, initial encounter
CPT/HCPCS: 36415; 82607; 83036; 83519; 84165; 84166; 84238; 84443; 86038; 86235; 86256; 86335; 86431

== ENCOUNTER → 2018-09-16 15:32 | Outpatient (CLI) | payer MEDICARE, SELFPAY ==
[2018-09-21 15:42] LABS: PROELU- Albumin, Urine 29.2 % (.); PROELU- Alpha-1-Globulin,Ur 0 % (.); PROELU- Alpha-2-Globulin,Ur 15.4 % (.); PROELU- Beta Globulin, Ur 51.4 % (.)
[2018-09-21 15:44] LABS: Total Protein, Ur < 4.0 mg/dL (Not Estab.)
== END ==
PROVIDERS: Family Provider Family Medicine; PCP Family Medicine; Referring Provider Psychiatry & Neurology Neurology; Visit Provider Psychiatry & Neurology Neurology
DX: R20.0 Anesthesia of skin (principal); T17.920A Food in respiratory tract, part unspecified causing asphyxiation, initial encounter; Z79.899 Other long term (current) drug therapy
CPT/HCPCS: 84166

== ENCOUNTER 2018-09-27 12:00 | Outpatient (RCR) | payer MEDICARE, BC, SELFPAY ==
--- NOTE | 2018-06-10 08:55 | SOAP_ITS ---
REASON FOR REFERRAL: The Patient is a 62 year old male referred for a clinical assessment of the swallow function at [facility] on 06/10/2018 due to persistent dysphagia, with recent assessment under fluoroscopy detailing findings of SILENT aspiration during ingestion of thin liquids. The Patient was pleasant and forthcoming throughout the session. The Patient reports intermittent coughing with thin liquids that have gradually increased over the past 2-3 months, along with noted coughing with liquids / medications, with no relieving factors identified to date. He reports that he has been compliant with use of thickened liquids, though is concerned with possible dehydration (reports that he is a heavy water drinker, and that he has noticed production of dark yellow urine since placement). He denies any change in appetite, unintentional weight loss, early satiety, or inanition; though does report slight nausea during initial implementation of thickened liquids; he denies the presence of hypogeusia / dysgeusia / ageusia; reports rather consistent xerostomia; denies the presence of diurnal sialorrhea. He denies any current or previous issues with pneumonia; though reports recent treatment for an unknown pulmonary / upper airway infection (prescribed Azithromycin / ?Z-pack? twice within the last year). He denies suboptimal intake behaviors (tachyphagia, bolus bolting, aerophagia). He reports issues with reflux (managed with Pantoprazole) with reported occasional substernal discomfort and odynophagia (~2-3/10), with reported random chest pain that is somewhat similar to post prandial substernal discomfort, though this appears to radiate from the mild left sternum / clavicle to the mid right back; he reports associated severe left sided neck pain that occasionally will pull his head to the left; reports mild pain / discomfort (~2-3/10) during episodes, with episodes lasting no longer than 1 minute in length. He reports somewhat recent workup that appeared to suggest a third gastroesophageal based disorder (previously diagnosed Talamantes?s esophagus and gastroesophageal reflux disease), with what he describes as either a ?pocket? or an ?enlargement? within his esophagus; it is unclear what this may be based on his description. The Patient is ambulating independently, is independent for all ADL?s and IADL?s, and is a community truck driver salesperson. He does report baseline concerns with cognitive functioning, stating intermittent memory issues / forgetfulness / confusion with no clear etiology of cause; reports previously managed by neurology (Dr. Howell), with upcoming appointments scheduled with [facility] (Dr. Mendez). The Patient additionally expresses concerns for intermittent incontinence that appears to accompany episodes of confusion, increased dysphagia, and near syncope / dizziness; further reports occasional shortness of breath and fluctuating endurance. He further reports multiple possible concussions associated with a myriad of events, though does not believe that he actually lost consciousness with any episode. He appeared somewhat anxious (reports slight anxiety, with recent close family members having similar issues with swallowing), otherwise affect appears appropriate given topics discussed. MEDICAL HISTORY: Talamantes?s esophagus, gastroesophageal reflux disease, migraines, coronary artery disease, hypertension, mixed dyslipidemia, and chronic gastrointestinal bleeding, PREVIOUS MODIFIED BARIUM SWALLOW STUDY: 06/01/2018 MBS results were personally reviewed, with the Patient presenting with mild to moderate pharyngeal dysphagia (SPS: 4-5; DSRS: 4) with questionable grade III SILENT aspiration of thin liquids on one occasion (report details one additional occurrence) with transient penetration with thin and nectar thickened liquids. Further findings include mild pharyngeal phase dyssynchrony, with swallow onset auscultating between the valleculae and the posterior laryngeal surface of the epiglottis; mild restrictions in pharyngoesophageal segment relaxation; and mild reduction in hyolaryngeal excursion. Unable to fully assess the oral preparatory / transportation phases, or pharyngeal motility, as no solid or semisolid textures were trialed. While only two trials of thin liquids via chin tuck were completed, this appeared to be a promising strategy to utilize during the repeat MBS. ADDITIONAL OBJECTIVE ASSESSMENT RESULTS: 06/05/2018 MRI revealed no acute intracranial abnormality or masses. ORAL MOTOR / MODIFIED CRANIAL NERVE ASSESSMENT: CNVII impaired; left labial asymmetry at rest, upon retraction / protrusion. CNV, IX, X, and XII grossly intact. Patient reports previously breaking / dislocating his jaw (boxing), reports persistent right labial asymmetry has persisted since said incident. Natural upper / lower dentition in suboptimal repair; gingival recession; prior extensive restorative work; denies odontalgia (toothache); normal occlusion. Moist pinkish appearance to the oral mucosa with reported mild xerostomia. Appropriate volitional cough intensity. No reported signs or symptoms of trismus. Mild vocal hoarseness SUPPLEMENTARY DYSPHAGIA ASSESSMENT RESULTS: Eating Assessment Tool ? 10 (EAT-10): 5 [facility] Xerostomia Questionnaire: 12 (higher score indicates worse xerostomia) Sialorrhea Scoring Scale (SSS): 1/9 (dry, never drools) Reflux Symptom Index (RSI): 15 (>13 may be indicative of significant reflux) CLINICAL ASSESSMENT OF SWALLOW FUNCTION (STRUCTURED): Repetitive Saliva Swallowing Test (RSST): Pass; > 2 dry swallows within 30 seconds. 1oz (30mL) Water Swallowing Test (WST): Abnormal ? 3 (of 5); Drink all the water; some choking 3oz (90mL) Water Swallow Test: Abnormal; Coughing during / after deglutition Ahrtman Assessment of Swallowing Ability (MASA) Dysphagia Severity Score: 186 (unremarkable) Hartman Assessment of Swallowing Ability (MASA) Aspiration Severity Score: 186 (unremarkable) Hartman Assessment of Swallowing Ability (MASA) Dysphagia Risk Rating: Probable Swallowing Performance Scale (PSP): 5 (moderate) Dysphagia Severity Ratings Scale (DSRS): 4 (moderate) Dysphagia Severity Scale (DSS): 3 (liquid aspiration) Functional Oral Intake Scale (FIOS): 5 (total oral intake of multiple consistencies requiring special preparation) CLINICAL ASSESSMENT OF SWALLOW FUNCTION (SUBJECTIVE): ORAL PREPARATORY PHASE: oral preparatory phase appears unremarkable; sufficient mastication rate and quality with sufficient oral containment; preserved management of breathing / bolus formation without disrupted E ? S ? E pattern. ORAL TRANSITIONAL PHASE: oral transitional phase appears unremarkable; no signs of transitional incompetence; sufficient oral clearance; no signs or symptoms of premature posterior bolus loss. PHARYNGEAL PHASE: pharyngeal phase marked by mild reduction in hyolaryngeal excursion upon digital palpation possibly suggestive of suboptimal laryngeal vestibule closure / pressure; intermittent / prominent audible swallow possibly suggestive of pharyngeal swallow delay / dyssynchrony; no subjective signs of pharyngeal dysmotility; no subjective signs of velopharyngeal impairments; signs of prandial aspiration (coughing) immediately post deglutition of thin liquids without execution of the chin tuck posture (improved subjective tolerance with execution of the chin tuck posture and / or altered liquid viscosities); no further overt signs or symptoms of aspiration throughout trials. ESOPHAGEAL PHASE: esophageal phase findings are somewhat irregular, with the Patient reporting symptoms that initially sounded similar to post prandial substernal discomfort, though the Patient reported and demonstrated an irregular and fluctuating onset, with reported feelings somewhat similar to muscle spasms that initiated around the mid left clavicle and extended to the neck and later to the back; he reports that this has been occurring sporadically for quite a while; he further reports prior workup suggesting some sort of esophageal associated motility disorder that is separate from the Patient?s previously diagnosed Talamantes?s esophagus and gastroesophageal reflux disease. Reported pain / discomfort with the said episodes is mild (~2/10), and does not last longer than 1 minute, appeared to slightly increase with inspiration. COMPLICATING FACTORS: Complicating factors include self-reported fluctuating cognitive abilities that may impede with implementation of compensatory strategies; and self-reported intermittent ?dizzy spells? that may place the Patient at higher risk for asphyxiation, though no association between episodes and ingestion. RESULTS OF THE EVALUATION: Clinical assessment of the swallow function completed this date, with the Patient presenting with mild to moderate pharyngeal dysphagia (SPS: 4-5; DSRS: 4) with questionable grade III SILENT aspiration of thin liquids on one occasion (report details one additional occurrence) with transient penetration with thin and nectar thickened liquids under fluoroscopy, secondary to primary presbyphagia in the absence of a clearly defined etiology of cause. RECOMMENDATIONS: As previously mentioned, I personally reviewed all imaging from the recent MBS; while there was clear penetration to the vocal folds without full ejection, I did not visualize any progression below the vocal folds, with any aspiration consisting of very trace contents. Upon review, the Patient appeared to tolerate thin liquids via chin tuck with sufficient airway protection, though trials were quite limited, and would require extensive testing through objective means given the initial impressions detailed through the MBS report. I cannot definitively rule out silent aspiration at bedside, therefore recommend a repeated assessment of the oropharyngeal swallow function under fluoroscopy with this clinician AFTER the Patient establishes a sufficient level of consistent execution of the chin tuck posture. I am also unclear as to why the Patient was not assessed with more viscous textures (solids, pudding), will ensure completion during the repeated assessment. While I question the presence of silent aspiration, this does not imply that the Patient is not demonstrating an impairment in the swallow profile, with the Patient clearly demonstrating overt aspiration during the clinical examination. Will consider this Patient to be at higher risk for both malnutrition and dehydration due to the recommended diet texture restrictions, as increased liquid viscosities may continue to result in reduced liquid intake and early satiety. When considering the Patients concerns for dehydration and above mentioned increased risk factors, I recommended implementation of the Mclean Free Water Protocol (FFWP), with Patient education provided, with handouts provided for the Patient and family; I encouraged increased thin liquid water consumption through the FFWP with execution of the chin tuck posture; further training is likely indicated. The Patient requires intensive skilled speech-language intervention targeting diet texture management and training / implementation of recommended compensatory strategies; training, implementation, and Patient / caregiver education regarding implementation of the Mclean Free Water Protocol (FFWP); with goal adjustment pending MBS completion. DIET TEXTURE RECOMMENDATIONS: Will recommend a regular textured, nectar thickened liquid diet with the following recommended aspiration precautions in place: chin tuck with liquids, reduced bolus volume, reduced rate of intake, straws with all liquids, seated upright at 90 degrees during PO intake, remain upright for 30-60 minutes post meal (GERD precaution), medications whole with purees. FUNCTIONAL OUTCOMES: OUTCOME 1: The Patient will tolerate the least restrictive means of nutrition to facilitate adequate hydration/nutrition with optimum safety and efficiency of swallowing function during P.O. intake without overt signs and symptoms of aspiration. OUTCOME 2: The Patient will demonstrate and utilize recommended compensatory swallowing techniques to facilitate improved airway protection and decreased risk for aspiration during PO intake, across 2 out of 3 sessions. OUTCOME 3: The Patient will independently demonstrate and utilize recommended safety precautions associated with the Mclean Free Water Protocol to facilitate improved hydration / intake with complete independence across 3 consecutive sessions. OUTCOME 4: The Patient will participate in a repeat Modified Barium Swallow (MBS) study to objectively assess the Patient?s oropharyngeal swallowing function, improvements in oropharyngeal swallow function, to determine the least restrictive means of nutrition, and to identify appropriate intervention approaches / strategies to implement during treatment sessions at the supervised level. OUTCOME 5: goal adjustment as needed post MBS. Will Cortés M.A., CCC-CREW CLERK MBSImP Certified; LSVT Certified [facility] Speech-Language Pathology Department [email or web address]
--- NOTE | 2018-09-20 12:40 | HP.PTEVAL ---
Patient's Visit Information PARVEZ ROGERS is a 63 year old M referred to Physical Therapy by Jordan Zepeda MD with a diagnosis of dizzyness. Date of Evaluation: 09/20/18 Physical Therapist: Drew Greer, DPT, OCS, CSCS - Visit Plan Plan: [facility] balance test per order. - Subjective Findings: Been having bad dizzy spells. BP has been going nuts. Saw Dr. Benitez for high BP, falls, dizzy spells walkign down aisle in store. Sometimes happens sitting in [place] or working in yard. That has been happening for javier time but worse last couple months. Used to get migraines also with similar feelings. Stumbles at times(LOB) when walking. No falls recently. Dizzyness can be short or longer but usually no more than 20 minutes. Works 2 days per week factory and has not had a problems with those two days per week. Sleep is not good due to stress. is on cpap and typically ot dizzy lying down. Hobbies include hunting around house and taking care of . had some heart problems since she got sick including blood clots in legs. dr. Nazario is cardiac doctor adn will f/u end of this month. Has clogged artery in neck. No precautions related. Basic ADLs are OK unless dizzy. Balance is pretty good and dorothy when not dizzy. Gets dizzy every two or three days lately but only two in last couple weeks. - Objective Walks normal, stpes reciprocall normal. Transfer normal. c/s AROM WNL and no pain. UE AROM WNL, sensation to gross light touch is normal, strength UE is normal 4+/5. Balalnce is good. - B hallpike. - roll test. MSQ positions do not cause dizzyness at all today. Oculomotor is unremarkable. no nystagmus with gaze or head shake or spontaneous. Pursuit and saccades are normal and asymptomatic. VOR normal without dizzyness horiz and vertical. - head thrust. - skew eye deviation. normal convergence - Balance Scores Functional Gait Assessment Score: 30 % Disability: 0 CATSIB Score (Max score 120 seconds): 120 - Goals Goal 1:: Normal computerized balance Goal Time Frame: 2-4 Weeks - Rehabilitation Potential Physical Therapy Diagnosis: dizzyness unknown etiology, does nto appear to be vestibular. Rehabilitation Potential: Fair - Anticipated Interventions Patient/Client Instruction: Educate patient on: Condition, Plan of Care For the Purpose of:: To improve balance Other: if needed. Thank you for the opportunity to evaluate your patient. For Medicare and Medicare HMO plans, please review the plan of care and approve it. It will need to be FAXED BACK to us at [phone] for Medicare purposes. For Medicare only, by signing this I certify the plan of care. Please let me know if there are questions or concerns regarding this plan of care. Physician Signature: Date:
--- NOTE | 2018-09-27 12:36 | HP.PTDCSUM ---
HP - PT D/C Summary It has been my pleasure to treat PARVEZ ROGERS under orders from Jordan Zepeda MD, for the diagnosis of dizzyness for a total of 2 visit(s). Discharge Date: 09/27/18 Please see the following information for a summary of their discharge status. - Subjective Subjective: No big changes. Did not sleep well last night. - Overall Improvement % Improvement: 0 - Objective Objective/Function: SOT: low on vestibular and less so on somatosensory adn visual. MCT: Slow especially in posterior musculature. LOS: Forward weight shift excursion is slightly at deficit for age. - Goals Goal 1:: Normal computerized balance Goal Progress: Goal Met - Plan Plan: Pt wishes to hold PT until after all testing is done as he does not feel bad balance stahl and does not wish to wrok on this until after they figure out what is going on. d/C - D/C Information Discharge Comments: Pt wishes to be discharged in favor of having other tests. Shruthi joseph to be sent back if no findings with other tests. If there are questions or concerns regarding this patient's physical therapy, please feel free to call me at [phone]. Thank you for the referral of this patient. Sincerely, Drew Greer, DPT, OCS, CSCS
--- NOTE | 2018-09-27 12:36 | HP.PTCOM ---
PT Communication Note 09/27/[address] Jordan Zepeda MD , Thank you for the referral of Emil to [facility] for dizzyness and balance assessment. I have enclosed a copy of the results for your review. His Sensory Organization Test showed deficits in vestibular and , less so, in somatosensory and visual. His Motor Control Test showed some slowness particularly in the posterior musculature. The Limits of Stability test shows some minor forward weight shift excursion deficits. Emil has decided that he wishes to hold on any interventional therapy for his balance deficits until his testing is complete. He will ask to be sent back at that time if still appropriate. Sincerely, GRAY NovoaT, OCS, CSCS Contact Information
--- NOTE | 2018-09-27 12:43 | HP.PTCOM_ITS ---
PT Communication Note 09/27/[address] Jordan Zepeda MD , Thank you for the referral of [facility] to [facility] for [facility]zyness and balance assessment. I have enclosed a copy of the results for your review. His Sensory Organization Test showed deficits in vestibular and , less so, in somatosensory and visual. His Motor Control Test showed some slowness particularly in the posterior musculature. The Limits of Stability test shows some minor forward weight shift excursion deficits. Emil has decided that he wishes to hold on any interventional therapy for his balance deficits until his testing is complete. He will ask to be sent back at that time if still appropriate. Sincerely, GRAY NovoaT, OCS, CSCS Contact Information
--- NOTE | 2018-11-24 16:24 | HP.SP.DC_ITS ---
ST Discharge Summary - Discharged: Discharge: The Patient is an 63 year old male who attended 3 skilled speech- language intervention sessions spanning from 06/10/2018 to 06/24/2018 targeting cognitive communication abilities secondary to mild to moderate pharyngeal dysphagia (SPS: 4-5; DSRS: 4). The Patient participated in intervention sessions consisting of targeting diet texture management and training / implementation of recommended compensatory strategies, with the Patient establishing a sufficient level of consistent execution of the chin tuck posture to recommend discharge from the caseload, with the Patient in agreement. Will discharge from the skilled speech-language pathology caseload at this time, as all intervention goals have been achieved, though would gladly re-initiate intervention as needed moving forward.
== END 2018-09-27 19:00 | disposition home or self-care (01) ==
LOC: PT 12:00
PROVIDERS: Family Provider Family Medicine; PCP Family Medicine; Visit Provider Family Medicine
DX: T17.908D Unspecified foreign body in respiratory tract, part unspecified causing other injury, subsequent encounter (principal)
CPT/HCPCS: 92526; 92610; 97162; 97750

== ENCOUNTER 2018-10-01 18:09 | Emergency (ER) | payer MEDICARE, SELFPAY ==
[2018-10-01 18:10] VITALS: BP 141/78; PULSE 79; RESP 14; TEMP 36.4; O2SAT 96; BMI 26.6
--- NOTE | 2018-10-01 18:56 | CT_ITS ---
Exam: Contrast CT of the left lower extremity. HISTORY:LEFT THIGH PAIN X 3 WEEKS. HX OF DVT COMPARISON: None Results: No acute fracture or dislocation. Normal bone contours. Mineralization appears within normal limits. No significant degenerative changes. Grossly negative soft tissues. Normal visualized vascular structures. CT/Extremity Lower WITH Contrast IMPRESSION: No definite acute abnormalities. Electronically Signed: Clement Chang MD at 20:44 EDT , Service support ,
[2018-10-01 20:03] LABS: Anion Gap 5 (5-15); BUN 15 mg/dL (7-18); BUN/Creat Ratio 21.1 RATIO (10-20); Calcium,Total 8.9 mg/dL (8.5-10.1); Chloride 106 mmol/L (98-107); Creatinine, Serum 0.71 mg/dL (0.70-1.30); EST Glomerular Filtration Rate 118 mL/min (>60); Est Glom Filt Rate - Afr Amer 143 mL/min (>60); Estimated Creatinine Clearance 103.73 ml/min; Glucose 125 mg/dL (74-106); Potassium 3.5 mmol/L (3.5-5.1); Sodium Level 139 mmol/L (136-145)
[2018-10-01 21:33] VITALS: BP 144/86; PULSE 71; RESP 16; O2SAT 98
--- NOTE | 2018-10-01 21:38 | ED.DCSUM_ITS ---
- ER Visit Summary Date of Service: 10/01/18 Chief Complaint: [Left leg pain] History of Present Illness: The patient is a 63 M [this is the emergency department with pain in his left leg for about 3 weeks. Patient describes an intermittent sharp stabbing burning sensation. Patient had some numbness to the left lateral thigh. Patient scheduled to see his neurologist and have nerve conduction studies of the left leg but not till October. Patient does have a history of DVT however he is currently on Eliquis and has been compliant with his medications. Patient also with history of hypertension and NH. He denies any back pain. He denies saddle anesthesia. He denies weakness in the extremity. He denies any trauma to the leg.] Physical Examination: [HEENT-PERRLA, EOMI. Cranial nerves II through XII grossly intact. TMs clear. Mucous membranes moist. No adenopathy. Cardiovascular-regular rate and rhythm without murmur or ectopy Lungs-clear to auscultation, chest wall stable without crepitus or subcu emphysema Abdomen-normoactive bowel sounds, soft, nontender, no rebound or rigidity, no peritoneal signs. Extremities-intact ?4, normal range of motion, normal pulses, atraumatic. Left thigh-patient does have tenderness over the lateral aspect of the left thigh. There are no masses palpated. There is no erythema or warmth noted. He has normal pulses in the leg. Normal cap refill distally.] Test Results: [Patient had a BMP which was unremarkable. Patient had a CT scan of the leg as he was worried about potentially a hematoma or tear in his quadriceps. CT scan was read as normal.] Emergency Department Course and Treatment: [Patient will be given [place] for home.] Treatment Plan: [I suspect patient likely has a peripheral neuropathy given the complaint of burning pain and numbness to the lateral thigh. I suspect possibly meralgia paresthetica.] Disposition: [Discharged home in stable condition] Impression: [Left thigh pain-suspect peripheral neuropathy] This note was generated with [employer] dictation software. It may contain incorrect words, spelling, and punctuation that were not noted in review of the chart pr ior to signing ED Disposition - Plan for ED Patient: Referrals: Jordan Zepeda MD [Primary Care Provider] -
--- NOTE | 2018-10-01 21:38 | ED.DEP ---
ED Disposition - Plan for ED Patient: Instructions: ED Neuropathy Peripheral Prescriptions: Hydrocodone Bitart/Apap 5-325 [[place] 5MG-325MG] 1 tab PO Q4H PRN PRN 2 Days #10 tab PRN Reason: Pain Referrals: Jordan Zepeda MD [Primary Care Provider] - 5-7 Days
[2018-10-01 21:54] VITALS: BP 138/74; PULSE 79; RESP 18; O2SAT 100
[2018-10-01] MEDS: HYDROcodone Bitartrate/Apap 5/325 Tablet PO (21:55)
== END 2018-10-01 21:56 | disposition home or self-care (01) ==
PROVIDERS: Emergency Provider Emergency Medicine; Family Provider Family Medicine; PCP Family Medicine
DX: M79.652 Pain in left thigh (principal); R20.0 Anesthesia of skin; I10 Essential (primary) hypertension; I25.2 Old myocardial infarction; Z86.718 Personal history of other venous thrombosis and embolism; Z79.01 Long term (current) use of anticoagulants
CPT/HCPCS: 73701; 80048; 99283; Q9967; A4216

== ENCOUNTER → 2018-10-27 | Outpatient (CLI) | payer MEDICARE, SELFPAY ==
[2018-10-01 18:10] VITALS: BMI 26.6
--- NOTE | 2018-10-27 13:16 | NEURO_ITS ---
NCS and/or EMG Patient Report Ordering Doctor: Manuelito Mendez DATE OF SERVICE: 10/27/18 Emil Troncoso is a 63-year-old male presents for elective diagnostic testing the lower limbs. He reports numbness in the lateral aspect of the left thigh. Electrodiagnostic findings: Peroneal motor nerve demonstrates normal distal latency, amplitude and conduction velocity bilaterally. Prolonged left tibial motor latency is noted. Normal right tibial motor response. Tibial and peroneal F waves were within normal limits H reflex is prolonged bilaterally. Prolonged sural latency is noted bilaterally normal superficial peroneal latency bilaterally. Normal plantar responses. Prolonged left lateral femoral cuta neous latency is noted. Needle EMG testing demonstrated no evidence of fibrillations, positive sharp waves, or fasciculations. Motor unit action potentials of normal amplitude and duration. Electrodiagnostic impression: This is an abnormal study. 1. Electrodiagnostic findings suggestive of left lateral femoral cutaneous neuropathy. This is consistent with a left meralgia paresthetica. 2. Electrodiagnostic findings consistent with a left tibial neuropathy without evidence of axonal loss. 3. There is electrodiagnostic evidence for mild bilateral sural neuropathy. This may be suggestive of development of early sensory polyneuropathy. 4. There is no electrodiagnostic evidence for lumbosacral radiculopathy. 5. There is no electrodiagnostic evidence for myopathy or motor neuron disease. If there are any further questions, please do not hesitate to contact me.
== END | disposition home or self-care (01) ==
PROVIDERS: Family Provider Family Medicine; PCP Family Medicine; Referring Provider Psychiatry & Neurology Neurology; Visit Provider Psychiatry & Neurology Neurology
DX: R20.0 Anesthesia of skin (principal)
CPT/HCPCS: 95886; 95913

== ENCOUNTER → 2019-01-21 08:26 | Outpatient (CLI) | payer MEDICARE, SELFPAY ==
[2018-10-27 13:37] VITALS: BMI 25.8
--- NOTE | 2019-01-21 08:31 | RAD_ITS ---
STUDY: X-RAY - ESOPHAGUS (BARIUM SWALLOW) WITH FLUOROSCOPY REASON FOR EXAM: Male, 63 years old. Tightness in the throat. TECHNIQUE: 15 view(s) of the esophagus were obtained following swallowing of barium. FLUOROSCOPY TIME (if supplied): (0:39) minutes/seconds COMPARISON: None. FINDINGS: There is no demonstrated esophageal foreign body. There is no demonstrated stricture or mucosal abnormality. Normal gastroesophageal junction, without a demonstrated hiatal hernia. The patient ingested a 12 mm tablet of barium without any difficulty. Normal visualized aortic arch and descending thoracic aorta. Normal visualized pulmonary parenchyma. Normal visualized osseous structures of the thorax. RAD/Esophagus Only IMPRESSION: Normal plain film x-ray examination (barium swallow) of the esophagus. Electronically Signed: Micky Leggett, at 15:00 EDT , Service support ,
== END ==
PROVIDERS: Family Provider Family Medicine; PCP Family Medicine
DX: R13.10 Dysphagia, unspecified (principal)
CPT/HCPCS: 74220

== ENCOUNTER 2019-05-06 12:39 | Observation (INO) | payer MEDICARE, SELFPAY ==
[2018-10-27 13:37] VITALS: BMI 25.8
[2019-05-06] VITALS (13 sets, daily range): BP systolic 122–153; BP diastolic 75–96; PULSE 69–91; RESP 14–18; TEMP 36.6–36.9; O2SAT 95–98; BMI 26.9; BMI 25.2
--- NOTE | 2019-05-06 12:56 | CT_ITS ---
STUDY: CT BRAIN WITHOUT CONTRAST REASON FOR EXAM: Male, 63 years old. FACIAL DROOP/LT SHOULDER AND ARM PAIN. Hx of CVA,CAD, HTN, W[place] x 2. RADIATION DOSAGE (If Supplied By Facility): CTDIvol = ( 60.81 ) mGy, DLP = ( 1067.08 ) mGycm TECHNIQUE: Transaxial CT imaging of the brain was performed without administration of intravenous contrast material. Individualized dose optimization techniques were used for this CT. COMPARISON: No relevant priors. FINDINGS: Normal soft tissue structures. Normal calvarium. Normal size ventricles and extra-axial spaces for the patient''s age. There are areas of decreased attenuation within the white matter tracts of the supratentorial brain, consistent with microvascular disease changes. Normal basal ganglia and thalami. Normal brainstem. Normal cerebellum. There is no intracranial hemorrhage. There are no findings of an acute ischemic infarction. Normal visualized paranasal sinuses. CT/Brain/Head without Contrast IMPRESSION: Chronic involutional changes of the brain. Electronically Signed: Briseyda Ferraro, at 13:30 EST Tel , Service support ,
--- NOTE | 2019-05-06 12:56 | EKG12_ITS ---
Test Reason : CP Blood Pressure : / mmHG Vent. Rate : 076 BPM Atrial Rate : 076 BPM P-R Int : 160 ms QRS Dur : 096 ms QT Int : 370 ms P-R-T Axes : 046 -09 054 degrees QTc Int : 416 ms Normal sinus rhythm Inferior infarct , age undetermined Abnormal ECG Confirmed by FERN DELA CRUZ ([id number]), writer editor IRENE BRIGHT ([id number]) on 05/10/2019 2:53:19 PM Referred By: MALU
--- NOTE | 2019-05-06 12:56 | RAD_ITS ---
STUDY: X-RAY CHEST REASON FOR EXAM: Male, 63 years old. CHEST PAIN TECHNIQUE: Single AP portable view of the chest. COMPARISON: None. FINDINGS: The lungs are underexpanded. There is no demonstrated pleural abnormality. Normal size heart. Normal mediastinum and slava. Normal visualized pulmonary arteries. Normal visualized aortic arch and descending thoracic aorta. There is a dextroscoliosis of the thoracic spine. There is degenerative osteoarthritis of the bilateral shoulders. There is no demonstrated abnormality of the visualized soft tissue structures of the upper abdomen. RAD/Chest 1 View IMPRESSION: Degenerative changes, as described above. No demonstrated acute cardiopulmonary process. Electronically Signed: Briseyda Ferraro, at 13:28 EST Tel , Service support ,
[2019-05-06 13:00] LABS: Bedside Glucose 155 mg/dL (70-110)
[2019-05-06 13:10] LABS: Absolute Lymphocyte Count 1.78 X10^3/uL (0.83-4.51); Basophil# 0.07 X10^3/uL; Basophil% 0.8 % (0-1); Eosinophil# 0.22 X10^3/uL; Eosinophils% 2.4 % (0-5); Hematocrit 45.4 % (40-54); Hemoglobin 15.3 g/dL (13.0-16.5); Lymphocyte # 1.78 X10^3/ul (4.0); Lymphocyte % 19.3 % (19-41); Mean Corp Hgb Conc 33.7 g/dL (32-36); Mean Corpuscular Volume 92.1 fL (80-94); Mean Platelet Vol. 9.1 fl (6.2-12.0); Monocyte# 0.94 X10^3/uL; Monocyte% 10.2 % (0-10); NRBC Flagged by Analyzer 0 % (0-5); Neutrophil # 6.03 X10^3/uL (2.7-7.7); Neutrophil % 65.5 % (47-70); Platelet Count 273 K/mm3 (150-450); RBC Distribution Width CV 13.1 % (11.6-14.6); RBC Distribution Width SD 44.6 fl (35.1-43.9); Red Blood Count 4.93 M/mm3 (4.6-6.2); White Blood Count 9.2 K/mm3 (4.4-11.0)
[2019-05-06 13:14] LABS: Prothrombin Time (Protime)PT. 13.2 SECONDS (11.7-14.9)
[2019-05-06 13:15] LABS: Partial Thromboplast Time 31.1 Seconds (24.1-36.2)
[2019-05-06 13:17] LABS: Anion Gap 7 (5-15); BUN 17 mg/dL (7-18); BUN/Creat Ratio 19.3 RATIO (10-20); Calcium,Total 9.7 mg/dL (8.5-10.1); Chloride 105 mmol/L (98-107); Creatinine, Serum 0.88 mg/dL (0.70-1.30); EST Glomerular Filtration Rate 92 mL/min (>60); Est Glom Filt Rate - Afr Amer 112 mL/min (>60); Estimated Creatinine Clearance 83.69 ml/min; Glucose 143 mg/dL (74-106); Potassium 3.5 mmol/L (3.5-5.1); Sodium Level 141 mmol/L (136-145)
--- NOTE | 2019-05-06 13:54 | ED.VIS.GEN ---
History of Present Illness Chief Complaint: Chest Pain Narrative: Patient presenting with multiple complaints. First off patient states that he has been dealing with intermittent chest pain. He states that it will come and go, it is nonreducible, the worst episode he had was last night that lasted about an hour. He describes it as sharp type pain that was not associated with any sort of diaphoresis lightheadedness or shortness of breath. Patient does have a history of multiple MIs in the past and ischemic cardiomyopathy. 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 Patient reports that he has been intermittently dealing with left shoulder pain that is worse with movement, and has caused him to have some difficulty with using his left arm. Lastly the patient states when he woke up today at about 9 AM his noted that he had facial droop. This is on the right side. Patient denies any other numbness or weakness. He denies any visual changes or speech difficulty. Review of systems otherwise negative. Past Medical History - Allergies and Home Meds Allergies/Adverse Reactions: Allergies bee venom protein (honey bee) Allergy (Verified 05/06/19 12:56) Anaphylaxis cefadroxil hydrate [From Duricef] Allergy (Verified 05/06/19 12:56) Rash niacin [From Niaspan Extended-Release] Allergy (Verified 05/06/19 12:56) Rash TRINALIN Allergy (Uncoded 05/06/19 12:56) Rash Primary Care Physician: Jordan Zepeda MD [Primary Care Provider] - Past Medical History: - - Coronary artery disease, recurrent DVTs Surgical History: appendectomy Smoking Status: Never smoker - Family History Maternal Family History: Family History (Last Reviewed 10/27/18 @ 14:03 by Geovanny Aldridge MD) Brother Cancer Diabetes Father Cancer CAD (coronary artery disease) Heart disease Hypertension Hearing loss Mother CAD (coronary artery disease) Diabetes Heart disease Hypertension CVA (cerebral vascular accident) Family History: Reports: Diabetes Paternal Family History: Family History (Last Reviewed 10/27/18 @ 14:03 by Geovanny Aldridge MD) Brother Cancer Diabetes Father Cancer CAD (coronary artery disease) Heart disease Hypertension Hearing loss Mother CAD (coronary artery disease) Diabetes Heart disease Hypertension CVA (cerebral vascular accident) Family History: Reports: - - stomach cancer Sibling Family History: Family History (Last Reviewed 10/27/18 @ 14:03 by Geovanny Aldridge MD) Brother Cancer Diabetes Father Cancer CAD (coronary artery disease) Heart disease Hypertension Hearing loss Mother CAD (coronary artery disease) Diabetes Heart disease Hypertension CVA (cerebral vascular accident) Family History: Reports: Cancer Review of Systems All systems negative except as indicated General: Denies: Chills, Fever, Sweats Eyes: Denies: Visual changes - bilaterally, Diplopia ENT: Denies: Rhinorrhea, Sore throat Cardiovascular: Reports: Chest pain Respiratory: Denies: Dyspnea, Cough, Dyspnea on exertion Gastrointestinal: Denies: Abdominal pain, Nausea, Vomiting, Diarrhea, Melena, Hematochezia Genitourinary: Denies: Dysuria, Hematuria, Frequency Musculoskeletal: Denies: Back pain, Extremity Pain Skin: Denies: Rash, Wounds Neurological: Reports: Weakness Physical Exam Vital Signs/Narrative: Vital Signs Temp Pulse Resp BP Pulse Ox 05/06/19 13:47 82 16 136/90 H 96 05/06/19 13:40 79 16 136/90 H 96 05/06/19 13:02 85 14 141/94 H 97 05/06/19 12:50 84 16 139/90 H 98 05/06/19 12:40 97.8 F 91 16 153/93 H 98 Inital Vital Signs reviewed: Yes General: Well nourished, Well developed, No Acute Distress Head: Normocephalic, Atraumatic, - - Very minimal right-sided facial droop Eyes: Perrl, EOMI ENT: Moist mucous membranes, No rhinorrhea Neck: Supple, Nontender Cardiovascular: Regular rate, Regular rhythm, Murmur - 3 out of 6 systolic Respiratory: No distress, CTA bilaterally, Chest nontender Abdomen: Soft, Nontender, Nondistended, Normal bowel sounds Back: Nontender, Normal Inspection Extremities: No edema, Tenderness - Tenderness and pain with range of motion of the left shoulder. No evidence of warmth erythema crepitus or joint effusion. Skin: Normal color, No rash Neurological: Alert, Oriented x3, Cranial nerves II-XII grossly intact, Normal Strength, Normal Sensation, - - NIH stroke scale is 1 secondary to right-sided facial droop Psychological: Normal affect, Normal Mood Diagnostic/Tx/Re-eval Chest X-Ray - ED: 1 View, Read by ED Physician, Read by Radiologist, No Acute Disease - EKG Initial EKG Interpretation: - - Sinus rhythm at 76. Inferior Q waves that are old from a prior EKG in. Subtle ST depressions noted in leads V2 and V3 that are new from prior EKG. - Medical Decision Making Patient presented for evaluation secondary to chest pain as well as facial droop. Physical exam does show an NIH stroke scale of 1, but there is no indication for TPA as the patient's NIH is only 1. Stroke team was not activated. CT imaging of the brain was found to be unremarkable. EKG shows subtle ST depressions. CBC chemistry troponin found to be unremarkable. Chest x-ray by my personal review as well as radiology is found to be negative for acute process. Patient on repeat evaluation continues to have some right-sided facial droop. He has relatively significant risk factors for development of stroke so I believe that he requires admission. I will discuss this with the hospitalist. ED Disposition - Plan for ED Patient: Disposition: Acute Care Hospital [facility] Diagnosis: Right-sided facial droop, Chest pain, Acute electrocardiogram changes
--- NOTE | 2019-05-06 14:31 | EKG12_ITS ---
Test Reason : Blood Pressure : / mmHG Vent. Rate : 064 BPM Atrial Rate : 064 BPM P-R Int : 166 ms QRS Dur : 090 ms QT Int : 380 ms P-R-T Axes : 027 -05 035 degrees QTc Int : 392 ms Normal sinus rhythm Inferior-posterior infarct , age undetermined cannot be excluded Abnormal ECG Confirmed by NEVAEH AMOR, KATHY ([id number]), image editor KELSY PITTMAN ([id number]) on 05/12/2019 11:48:50 AM Referred By: BJ Confirmed By:KATHY HERRING MD
--- NOTE | 2019-05-06 14:49 | MRI_ITS ---
STUDY: MRI BRAIN WITHOUT CONTRAST REASON FOR EXAM: Male, 63 years old. right facial droop, chest pain, right arm weakness TECHNIQUE: Standardized multiplanar fat and water weighted pulse sequences were obtained. COMPARISON: 05/06/2019 CT of the head FINDINGS: Normal size of the ventricles and extra-axial spaces for the patient''s age. There are a limited number of small white matter hyperintensities, distributed throughout the deep white matter tracts of the cerebral hemispheres, consistent with mild chronic white matter ischemic changes. Normal bilateral basal ganglia. Normal thalami. There is no extra-axial fluid accumulation. Normal flow voids within the major intracranial circulation suggesting patency by spin echo criteria. Normal sella turcica, pituitary gland, infundibular stalk, optic chiasm and hypothalamus. Normal tectal plate and pineal gland. Normal midbrain, wilberto and medulla. Normal cerebellum. Normal basal cisterns. Normal bilateral temporal bones. Normal bilateral internal auditory canals. MRI/Brain without Contrast IMPRESSION: No acute intracranial abnormality. Electronically Signed: Melida Trotter MD at 8:31 EST Tel , Service support ,
--- NOTE | 2019-05-06 14:49 | ECHOCS_ITS ---
Reason For Study: TIA/CVA Procedure This was a 2D Doppler, Color Flow transthoracic echocardiogram. The study was technically difficult. Due to left shoulder pain, PT unable to lie in left lateral decubitus position. Exam performed supine. Contrast injection was performed. Exam performed portable in patient room. Left Ventricle Normal size and thickness. The estimated ejection fraction is 75 %. Normal diastology for age. No regional wall motion abnormalities noted. Right Ventricle Normal size and thickness. A moderator band is seen in the right ventricle. Normal systolic function. Atria Normal left atrium. Normal right atrium. Normal atrial septum. Mitral Valve The mitral valve is structurally normal. No prolapse or stenosis seen. Tricuspid Valve Normal tricuspid valve. Trivial tricuspid valve insufficiency. Right ventricular systolic pressure estimated to be 30 mmHg. Aortic Valve Trisinus/trileaflet aortic valve. Mild focal aortic valve thickening. Mild restriction of the aortic valve. Mild aortic stenosis. Peak aortic valve gradient 16 mmHg. Mean aortic valve gradient 8 mmHg. Trivial aortic valve insufficiency. Pulmonic Valve Normal pulmonic valve. Great Vessels Normal aortic root. Normal arch. Normal inferior vena cava. Inferior vena cava collapse with sniff. Pericardium/Pleural No pericardial effusion. Medication Diluted definity 4.0ml given slow IV push to enhance endocardial definition. Performed a rapid injection of agitated mix of 9 cc saline and 1cc air to assess for atrial septal defect. MMode/2D Measurements & Calculations LVIDd: 4.8 cm IVSd: 1.2 cm LVOT diam: 2.0 cm LVIDs: 2.7 cm LVPWd: 1.1 cm FS: 44.7 % LVOT area: 3.3 cm2 Ao root diam: 3.6 cm LAV(MOD-bp): 46.9 ml LA A4 area: 16.5 cm2 LAV(MOD-bp) Indexed: 24.6 ml/m2 LAV(MOD-sp2): 43.4 ml LAV(MOD-sp4): 47.9 ml LA dimension(2D): 3.4 cm Time Measurements MV dec time: 0.20 sec Doppler Measurements & Calculations MV E max sav: 74.5 cm/sec Lat Peak E' Sav: 9.6 cm/sec Med Peak E' Sav: 7.0 cm/sec MV A max sav: 47.3 cm/sec E/E' lat: 7.8 E/E' med: 10.7 MV E/A: 1.6 Ao V2 max: 197.4 cm/sec LV V1 max: 143.2 cm/sec SV(LVOT): 86.1 ml Ao max P.6 mmHg LV V1 max P.2 mmHg Ao V2 mean: 138.4 cm/sec LV V1 mean P.5 mmHg Ao mean P.4 mmHg LV V1 mean: 100.9 cm/sec Ao V2 VTI: 35.5 cm LV V1 VTI: 26.3 cm KATIE(I,D): 2.4 cm2 KATIE(V,D): 2.4 cm2 PA V2 max: 120.2 cm/sec TR max sav: 249.6 cm/sec TR max P.9 mmHg Interpretation Summary The estimated ejection fraction is 75 %. Normal diastology for age. Trivial tricuspid valve insufficiency. Right ventricular systolic pressure estimated to be 30 mmHg. Mild aortic stenosis. Trivial aortic valve insufficiency. Compared to echo report dated 08/30/2018, no appreciable changes noted. The study was technically difficult. Contrast injection was performed. Ordering Physician: Omi Verdugo Referring Physician: Jordan Zepeda Performed By: Brissa Kunz, WISAM, RVT
--- NOTE | 2019-05-06 14:51 | HP.PCM_ITS ---
History of Present Illness Date of Admission: 05/06/19 Chief Complaint: Chest pain and right facial droop The patient is a 63 year old M with a PMH as below who presents with chest pain for the last several weeks. He said it was the worse last week and he probably should have come and then however he waited and then last night he was having some intermittent chest pain that continued into this morning. He also has unrelated left shoulder pain, that is due most likely to the rotator cuff though he denies any injury to the shoulder he has difficulty lifting the arm due to pain above shoulder height. Also this morning around 9 AM he was babysitting her grandkids and he noticed that his right lower eyelid was very droopy they then say anything until once the grandkids were picked up. This unfortunately put him outside the window of any type of intervention and was his only neurologic complaint. He denies any numbness or tingling to the face. He states that his chest pain does not radiate up to his jaw and that he has not noticed any relation with activity. He has a prior history of a potential CVA back in May with normal MRI but he did go to speech therapy. He had carotid ultrasounds done in October that showed a 20 to 39% stenosis in both the right and left internal carotid arteries. He had a stress test in August which was unremarkable but he does have a history of nonischemic cardiomyopathy with a previous EF of 27% which has now resolved and his most recent echo with an EF of 60%. He has also endorsed some memory problems which has caused him to forget to take some of his medications including his Eliquis, however he does state that this last week he has taken all of his medications appropriately because his has been more proactive in his care. In the ER initial troponin was unremarkable and the EKG was nonischemic. Past Medical History Past Medical History (Chronic Problems): Chronic Problems (Last Reviewed 10/27/18 @ 14:03 by Geovanny Aldridge MD) Recurrent deep vein thrombosis (DVT) (Chronic) Atherosclerosis of coronary artery of [place] heart without angina pectoris (Chronic) Hyperlipidemia (Chronic) Essential hypertension (Chronic) Medical History: Medical History (Last Reviewed 10/27/18 @ 14:03 by Geovanny Aldridge MD) Recurrent deep vein thrombosis (DVT) (Chronic) I82.409 Nonischemic cardiomyopathy (Resolved) I42.8 EF 2006 was 25% resolved Atherosclerosis of coronary artery of [place] heart without angina pectoris (Chronic) I25.10 Hyperlipidemia (Chronic) E78.5 Essential hypertension (Chronic) I10 Obstructive sleep apnea G47.33 Asthma J45.909 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 Carotid artery occlusion without infarction I65.29 right Diverticulitis K57.92 Facial paresthesia Onset Date: ~07/2018 R20.9 Gastroesophageal reflux disease K21.9 History of GI bleed Z87.19 Insomnia G47.00 Migraines G43.909 Myalgia M79.10 Osteoarthritis M19.90 Type 2 diabetes mellitus without complication E11.9 Cardiomyopathy I42.9 GI bleed (Resolved) K92.2 History of VT (myocardial infarction) I25.2 Paroxysmal supraventricular tachycardia I47.1 Pericarditis I31.9 Allergies bee venom protein (honey bee) Allergy (Verified 05/06/19 12:56) Anaphylaxis cefadroxil hydrate [From Duricef] Allergy (Verified 05/06/19 12:56) Rash niacin [From Niaspan Extended-Release] Allergy (Verified 05/06/19 12:56) Rash TRINALIN Allergy (Uncoded 05/06/19 12:56) Rash Home Medications: Ambulatory Orders Medication Instructions Recorded Aspirin [Aspirin, Baby] 81 mg PO QHS 08/08/13 Pantoprazole Sodium [Protonix] 40 mg PO DAILY 08/08/13 Albuterol IH (ProAir) [Proair Hfa] 2 puff INHALATION Q4H PRN PRN 04/01/16 Rosuvastatin Calcium [Crestor] 5 mg PO QHS 01/05/17 Apixaban [Eliquis] 5 mg PO BID 10/01/18 Losartan Potassium 50 mg PO DAILY 10/01/18 nitroglycerin 0.4 mg sublingual 0.4 mg SUBLINGUAL Q5-15M 10/26/18 tablet verapamil 180 mg 24 hr 180 mg PO DAILY 10/26/18 capsule,extended release Fluticasone Furoate [Arnuity 1 puff INHALATION DAILY 05/06/19 Ellipta] Multivitamin with Minerals 1 tab PO DAILY 05/06/19 [Multiple Vitamin] Surgical History: Surgical History (Last Reviewed 10/27/18 @ 14:03 by Geovanny Aldridge MD) History of appendectomy Z90.49 History of inguinal hernia repair Z98.890, Z87.19 History of left knee surgery Z98.890 Surgical History: appendectomy Psychiatric History: No pertinent psych hx Smoking Status: Never smoker Tobacco Use: Non-smoker Alcohol: None Drugs: None - *Family History Maternal Family History: Family History (Last Reviewed 10/27/18 @ 14:03 by Geovanny Aldridge MD) Brother Cancer Diabetes Father Cancer CAD (coronary artery disease) Heart disease Hypertension Hearing loss Mother CAD (coronary artery disease) Diabetes Heart disease Hypertension CVA (cerebral vascular accident) History Items: Diabetes Paternal Family History: Family History (Last Reviewed 10/27/18 @ 14:03 by Geovanny Aldridge MD) Brother Cancer Diabetes Father Cancer CAD (coronary artery disease) Heart disease Hypertension Hearing loss Mother CAD (coronary artery disease) Diabetes Heart disease Hypertension CVA (cerebral vascular accident) History Items: - - stomach cancer Sibling Family History: Family History (Last Reviewed 10/27/18 @ 14:03 by Geovanny Aldridge MD) Brother Cancer Diabetes Father Cancer CAD (coronary artery disease) Heart disease Hypertension Hearing loss Mother CAD (coronary artery disease) Diabetes Heart disease Hypertension CVA (cerebral vascular accident) History Items: Cancer Review of Systems Constitutional: Denies: Chills, Fever, Weight Change HEENT: Denies: Head Aches, Sinus Congestion, Sinus Drainage Cardiovascular: Reports: Chest Pain. Denies: Orthopnea, Palpitations Respiratory: Denies: Cough, Shortness of Breath, Shortness of breath at rest, Sputum production Gastrointestinal: Denies: Abdominal Pain, Nausea, Vomiting Genitourinary: Denies: Dysuria Musculoskeletal: Reports: Shoulder Pain. Denies: Joint Pain, Joint Tenderness Skin: Denies: Rash, Wounds Neurological: Denies: Blurred vision, Double vision, Change in Speech, Slurred speech, Confusion, Focal weakness, Numbness, Tingling Psychiatric: Denies: Anxiety, Depression Hematologic/ Lymphatic: Denies: Easy Bruising, Easy Bleeding VTE Information - Inpt Only VTE Present on Admission: No - Physical Exam Vitals/I&O's: Vital Signs Temp Pulse Resp BP Pulse Ox 98.4 F 69 15 131/96 H 96 05/06/19 14:37 05/06/19 14:37 05/06/19 14:37 05/06/19 14:37 05/06/19 14:37 Oxygen Delivery Method Room Air Weight: 170 lb 1.6 oz Body Mass Index (BMI) 25.2 Finger Stick Blood Glucose 155 General: Alert, Oriented x3, Cooperative, No apparent distress HEENT: Atraumatic, PERRLA, EOMI, Normocephalic Oral: Moist Mucosa Neck: Supple, No JVD Lungs: Clear to auscultation, Normal air movement, No rhonchi, No wheeze, No rales, Diminished Cardiovascular: Regular rate, Regular Rhythm, Normal S1, Normal S2, Murmur - 2 out of 6 KASSI LUSB Abdomen: Soft, Non Tender, Non-Distended, No Hepato-splenomegaly Extremities: No edema, Capillary Refill Less than 3 Seconds Skin: No rashes, No breakdown Musculoskeletal: Tenderness - To palpation in the left anterior shoulder joint, - - Neer test is positive for impingement, decrease in pain with passive motion and is able to lift his shoulder above his head with passive motion, with active motion he is unable to live his shoulder past 90 degrees Neurological: Motor Exam 5/5 strength throughout, Facial Droop - On the right, without slurred speech or tongue deviation, Sensory exam intact to light touch and pain - He does have numbness to his left lateral thigh which is 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 Psych/Mental Status: Normal Affect, Appropriate Laboratory Results 05/06/19 12:50: WBC 9.2, RBC 4.93, Hgb 15.3, Hct 45.4, MCV 92.1, MCH 31.0, MCHC 33.7, RDW Std Deviation 44.6 H, RDW Coeff of Codie 13.1, Plt Count 273, MPV 9.1, Immature Gran % (Auto) 1.800 H, Neut % (Auto) 65.5, Lymph % (Auto) 19.3, [place] % (Auto) 10.2 H, Eos % (Auto) 2.4, Baso % (Auto) 0.8, Absolute Neuts (auto) 6.0, Absolute Lymphs (auto) 1.78, Nucleated RBC % 0 05/06/19 12:50: PT 13.2, INR 1.0, APTT 31.1 05/06/19 12:50: Sodium 141, Potassium 3.5, Chloride 105, Carbon Dioxide 29.0, Anion Gap 7, BUN 17, Creatinine 0.88, Estim Creat Clear Calc 83.69, Est GFR (MDRD) Af Amer 112, Est GFR (MDRD) Non-Af 92, BUN/Creatinine Ratio 19.3, Glucose 143 H, Calcium 9.7, Troponin I < 0.015 05/06/19 12:51: POC Glucose 155 H Current Medications Labetalol HCl (Trandate) 10 mg IV Q10M PRN PRN Reason: MAINTAIN BP < 220/120 Stop: 05/07/19 14:50 Nitroglycerin (Nitrostat) 0.4 mg SUBLINGUAL Q5M PRN PRN Reason: CARDIAC/CHEST PAIN Sodium Chloride () 10 - 40 ml IV UD PRN PRN Reason: SALINE FLUSH Assessment/Plan All Active Problems (Last Reviewed 10/27/18 @ 14:03 by Geovanny Aldridge MD) Chest pain (Acute) Acute electrocardiogram changes (Acute) Syncope (Acute) Dizziness (Acute) Nonischemic cardiomyopathy (Resolved) Altered mental status (Resolved) Chest pain (Resolved) Confusion (Resolved) DVT (deep venous thrombosis) (Resolved) GI bleed (Resolved) 1. Possible CVA -He is already on maximal therapy with aspirin and Eliquis as well as 5 mg of Crestor -At this time we will keep him on his current therapy but will try to increase his Crestor dosage -We will obtain an MRI of his head, in October he had carotid Doppler with a stenosis of 20 to 39% in both right and left internal carotids therefore I do not think is necessary to repeat an MRA of the neck -We will obtain PT/OT, as well as speech therapy as he has had issues in the past, however he was eating a cup of applesauce in the ER prior to my evaluation and as I observed him eating he did not seem to be choking therefore would say he passes dysphagia screen -Permissive hypertension -Outside of the window for TPA, his NIH is a 1 2. Chest pain/history of nonischemic cardiomyopathy which has resolved/HTN/HLD -We will obtain serial troponins and an echo for his stroke work-up -At this time given his normal stress test in August and currently working him up for a stroke, will hold off on any further aggressive cardiac intervention or evaluation unless symptoms and lab work changes -Previous EF in 2005 was 25%, on stress test in August 2018 EF is 72% with a normal exercise stress -We will continue with his aspirin, and Crestor but will hold his verapamil and losartan for permissive hypertension secondary to possible CVA 3. Left shoulder pain likely rotator cuff strain -Based on my exam he has a left rotator cuff strain -We will start him on prednisone 40 mg daily for 7 days 4. History of recurrent DVTs -He has been tolerating Eliquis fairly well, will continue 5. GERD -Stable -Continue with PPI DVT: Eliquis Code Visit OBSV E&M: 83329 Initial observation care L3
[2019-05-06] MEDS: predniSONE 20 MG Tablet 40 MG PO (16:28)
[2019-05-06] MEDS: 0.9% Saline Lock 10 ML Syringe IV (17:26)
[2019-05-06] MEDS: LORazepam 2 MG/ML Syringe 0.5 MG IV (17:26)
--- NOTE | 2019-05-06 19:39 | RAD_ITS ---
STUDY: X-RAY - LEFT SHOULDER REASON FOR EXAM: Male, 63 years old. PAIN IN LEFT SHOULDER RADIATING INTO LEFT SIDE OF NECK AND INTO LEFT ARMPIT SINCE YESTERDAY. NO KNOWN INJURY. TECHNIQUE: 4 view(s) of the shoulder. COMPARISON: None. FINDINGS: There is minimal degenerative arthrosis of the glenohumeral articulation. There is mild degenerative arthrosis of the acromioclavicular joint without inferior osseous spur formation. Normal acromion. Normal humeral head and visualized proximal humerus. The soft tissue structures are unremarkable. There is no demonstrated fracture. Normal visualized pulmonary apex. RAD/Shoulder min 2 Views IMPRESSION: Mild degenerative disease otherwise normal x-ray examination of the shoulder. Electronically Signed: Jaquelin Amaro MD at 0:52 EST , Service support ,
[2019-05-06] MEDS: Aspirin 81 MG TAB.CHEW PO (21:25)
[2019-05-06] MEDS: APIXABAN 5 MG TABLET PO (21:25)
[2019-05-06] MEDS: Atorvastatin Calcium 80 MG Tablet PO (21:25)
[2019-05-07] VITALS (10 sets, daily range): BP systolic 126–136; BP diastolic 74–94; PULSE 60–109; RESP 15–18; TEMP 36.7–37.2; O2SAT 94–97
[2019-05-07] MEDS: Acetaminophen 325 MG Tablet 650 MG PO (00:39)
[2019-05-07 06:45] LABS: Absolute Lymphocyte Count 0.75 X10^3/uL (0.83-4.51); Absolute Neutrophil Count 10.7 X10^3/uL (2.0-7.7); Basophil# 0.03 X10^3/uL; Basophil% 0.2 % (0-1); Hematocrit 46.8 % (40-54); Hemoglobin 15.8 g/dL (13.0-16.5); Lymphocyte # 0.75 X10^3/ul (4.0); Lymphocyte % 6.2 % (19-41); Mean Corp Hgb Conc 33.8 g/dL (32-36); Mean Corpuscular Hgb 30.6 pg (27.0-32.0); Mean Corpuscular Volume 90.5 fL (80-94); Mean Platelet Vol. 9.2 fl (6.2-12.0); Monocyte# 0.49 X10^3/uL; Monocyte% 4.1 % (0-10); NRBC Flagged by Analyzer 0 % (0-5); Neutrophil # 10.66 X10^3/uL (2.7-7.7); Neutrophil % 88.5 % (47-70); Platelet Count 305 K/mm3 (150-450); RBC Distribution Width SD 42.9 fl (35.1-43.9); Red Blood Count 5.17 M/mm3 (4.6-6.2); White Blood Count 12.1 K/mm3 (4.4-11.0)
[2019-05-07 07:05] LABS: Anion Gap 7 (5-15); BUN 18 mg/dL (7-18); BUN/Creat Ratio 22.3 RATIO (10-20); Calcium,Total 9.7 mg/dL (8.5-10.1); Chloride 108 mmol/L (98-107); Cholesterol 185 mg/dL (200); Creatinine, Serum 0.81 mg/dL (0.70-1.30); EST Glomerular Filtration Rate 102 mL/min (>60); Est Glom Filt Rate - Afr Amer 123 mL/min (>60); Estimated Creatinine Clearance 87.96 ml/min; Glucose 163 mg/dL (74-106); High Density Lipoprotein 54 mg/dL; Potassium 4.2 mmol/L (3.5-5.1); Sodium Level 139 mmol/L (136-145); Triglycerides 80 mg/dL; Very Low Density Lipoprotein 16 mg/dL (5-40)
[2019-05-07] MEDS: Pantoprazole Sodium 40 MG Tablet PO (09:11)
[2019-05-07] MEDS: APIXABAN 5 MG TABLET PO (09:12)
[2019-05-07] MEDS: predniSONE 20 MG Tablet 40 MG PO (09:14)
--- NOTE | 2019-05-07 10:51 | DCINST_ITS ---
- Discharge Diagnoses Current Active Problems: Current Active and Chronic Problems (Last Reviewed 10/27/18 @ 14:03 by Geovanny Aldridge MD) Chest pain (Acute) Acute electrocardiogram changes (Acute) You will use the following diet at home:: No restrictions Your food should be the consistency of: Regular Your liquids should be the consistency of: Regular/Thin Discharge Activity: Return to Normal Activity Weight Bearing Status: Full weight bearing Allergies/Adverse Reactions: Allergies bee venom protein (honey bee) Allergy (Verified 05/06/19 12:56) Anaphylaxis cefadroxil hydrate [From Duricef] Allergy (Verified 05/06/19 12:56) Rash niacin [From Niaspan Extended-Release] Allergy (Verified 05/06/19 12:56) Rash TRINALIN Allergy (Uncoded 05/06/19 12:56) Rash Medications to take at Discharge Aspirin [Aspirin, Baby] 81 mg PO QHS 08/08/13 Pantoprazole Sodium [Protonix] 40 mg PO DAILY 08/08/13 Albuterol IH (ProAir) [Proair Hfa] 2 puff INHALATION Q4H PRN PRN 04/01/16 Rosuvastatin Calcium [Crestor] 5 mg PO QHS 01/05/17 Apixaban [Eliquis] 5 mg PO BID 10/01/18 Losartan Potassium 50 mg PO DAILY 10/01/18 nitroglycerin 0.4 mg sublingual tablet 0.4 mg SUBLINGUAL Q5-15M 10/26/18 verapamil 180 mg 24 hr capsule,extended release 180 mg PO DAILY 10/26/18 Fluticasone Furoate [Arnuity Ellipta] 1 puff INHALATION DAILY 05/06/19 Multivitamin with Minerals [Multiple Vitamin] 1 tab PO DAILY 05/06/19 Acetaminophen [Tylenol Tablet] 650 mg PO Q6H PRN PRN tablet 05/07/19 Primary Care Physician: Jordan Zepeda MD [Primary Care Provider] - Please follow up with your Primary Care Physician in: IN 1-2 WEEKS Test Results: Test results from this visit will be discussed in further detail at your follow- up appointment, if applicable. Please Follow Up With: Geovanny Aldridge MD When: IN THE NEXT 2-3 WEEKS
--- NOTE | 2019-05-07 17:19 | DS.PCM_ITS ---
Discharge Date and Diagnosis Date of Admission: 05/06/19 Date of Discharge: 05/07/19 - Primary Discharge Diagnosis #1 chest pain-musculoskeletal in nature #2 right-sided facial droop-etiology unclear, not related to acute stroke, resolved at the time of discharge #3 left shoulder pain secondary to osteoarthritis - Secondary Discharge Diagnosis Chronic Problems (Last Reviewed 10/27/18 @ 14:03 by Geovanny Aldridge MD) Recurrent deep vein thrombosis (DVT) (Chronic) Atherosclerosis of coronary artery of [place] heart without angina pectoris (Chronic) Hyperlipidemia (Chronic) Essential hypertension (Chronic) Hospital Course and Treatment Operations: None Procedures: None Summary of Care Provided: The patient is a 63 year old M who was seen in the emergency room at [facility] with a chief complaint of chest pain, while in the emergency room, he also stated that he was told that he had a right facial droop according to his that she noted this morning. Patient denied any focal weakness however. Patient did complain of left shoulder pain. Work-up in the emergency room revealed a stroke score to be 1, brain CT showed only chronic involutional changes, hest x-ray showed no acute cardiopulmonary process, patient's troponin was unremarkable, patient's EKG did not show evidence of ischemic changes. Patient was placed in observation status on PCU, he underwent an echocardiogram which showed a normal EF, cardiac enzymes remain normal, and the patient underwent an MRI of the brain without contrast that showed no evidence of stroke. Shoulder x-ray obtained on the patient showed evidence of arthritic changes. 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 Patient agreed to this approach. On 05/07/2019, patient was seen and examined: On examination he appeared in good health and spirits. Vital signs as documented. Skin warm and dry and without overt rashes. Neck without JVD. Lungs clear. Heart exam notable for regular rhythm, normal sounds and absence of murmurs, rubs or gallops. Abdomen unremarkable and without evidence of organomegaly, masses, or abdominal aortic enlargement. Extremities nonedematous. Neuro: Cranial nerves II through XII are grossly intact, no focal motor deficits were noted, sensation to light touch and pinprick intact. Psych: Patient is alert and oriented x3, he does not appear anxious or depressed On 05/07/2019, patient was seen and examined felt to be in stable condition for discharge home - Physical Exam Vitals/I&O's: Vital Signs Temp Pulse Resp BP Pulse Ox 98.2 F 109 H 18 132/94 H 97 05/07/19 09:07 05/07/19 09:07 05/07/19 09:07 05/07/19 09:07 05/07/19 09:07 Oxygen Delivery Method Room Air Weight: 77.156 kg Body Mass Index (BMI) 25.2 Finger Stick Blood Glucose 155 Intake and Output for Last 24 Hours 05/05/19 05/06/19 05/07/19 23:59 23:59 23:59 Intake Total 725 / 975 1250 / 1250 Balance 725 / 975 1250 / 1250 Laboratory Results 05/06/19 15:58: Troponin I < 0.015 05/06/19 19:09: Troponin I < 0.015 05/07/19 06:12: WBC 12.1 H, RBC 5.17, Hgb 15.8, Hct 46.8, MCV 90.5, MCH 30.6, MCHC 33.8, RDW Std Deviation 42.9, RDW Coeff of Codie 13.0, Plt Count 305, MPV 9.2, Immature Gran % (Auto) 1.000 H, Neut % (Auto) 88.5 H, Lymph % (Auto) 6.2 L, [place] % (Auto) 4.1, Eos % (Auto) 0.0, Baso % (Auto) 0.2, Absolute Neuts (auto) 10.7 H, Absolute Lymphs (auto) 0.75 L, Nucleated RBC % 0 05/07/19 06:12: Sodium 139, Potassium 4.2, Chloride 108 H, Carbon Dioxide 24.0, Anion Gap 7, BUN 18, Creatinine 0.81, Estim Creat Clear Calc 87.96, Est GFR (MDRD) Af Amer 123, Est GFR (MDRD) Non-Af 102, BUN/Creatinine Ratio 22.3 H, Glucose 163 H, Calcium 9.7, Triglycerides 80, Cholesterol 185, LDL Cholesterol 115, VLDL Cholesterol 16, HDL Cholesterol 54 Discharge Activity: Return to Normal Activity Weight Bearing Status: Full weight bearing Home Medications: Medications to take at Discharge Aspirin [Aspirin, Baby] 81 mg PO QHS 08/08/13 Pantoprazole Sodium [Protonix] 40 mg PO DAILY 08/08/13 Albuterol IH (ProAir) [Proair Hfa] 2 puff INHALATION Q4H PRN PRN 04/01/16 Rosuvastatin Calcium [Crestor] 5 mg PO QHS 01/05/17 Apixaban [Eliquis] 5 mg PO BID 10/01/18 Losartan Potassium 50 mg PO DAILY 10/01/18 nitroglycerin 0.4 mg sublingual tablet 0.4 mg SUBLINGUAL Q5-15M 10/26/18 verapamil 180 mg 24 hr capsule,extended release 180 mg PO DAILY 10/26/18 Fluticasone Furoate [Arnuity Ellipta] 1 puff INHALATION DAILY 05/06/19 Multivitamin with Minerals [Multiple Vitamin] 1 tab PO DAILY 05/06/19 Acetaminophen [Tylenol Tablet] 650 mg PO Q6H PRN PRN tab 05/07/19 Primary Care Physician: Jordan Zepeda MD [Primary Care Provider] - Please follow up with your Primary Care Physician in: IN 1-2 WEEKS Please Follow Up With: Geovanny Aldridge MD When: IN THE NEXT 2-3 WEEKS Disposition: Home Minutes spent on discharge:: 30 Patient Condition:: Stable Medical Necessity - Tobacco Use Smoking Status: Never smoker Tobacco Use: Non-smoker Meaningful Use Info Meaningful Use Diagnoses (Choose all that apply): None applicable Code Visit OBSV E&M: 29873 Observation care discharge
== END 2019-05-07 10:54 | disposition home or self-care (01) ==
LOC: ED 14:01 → PCU 14:43
PROVIDERS: Admitting Provider Family Medicine; Emergency Provider Emergency Medicine; Family Provider Family Medicine; PCP Family Medicine; Visit Provider Internal Medicine
DX: R07.89 Other chest pain (principal); R29.810 Facial weakness; M19.012 Primary osteoarthritis, left shoulder; M19.011 Primary osteoarthritis, right shoulder; I25.2 Old myocardial infarction; I25.5 Ischemic cardiomyopathy; I08.2 Rheumatic disorders of both aortic and tricuspid valves; I10 Essential (primary) hypertension; E78.5 Hyperlipidemia, unspecified; I25.10 Atherosclerotic heart disease of native coronary artery without angina pectoris; G47.33 Obstructive sleep apnea (adult) (pediatric); J45.909 Unspecified asthma, uncomplicated; E11.9 Type 2 diabetes mellitus without complications; Z79.899 Other long term (current) drug therapy; Z79.01 Long term (current) use of anticoagulants; Z79.82 Long term (current) use of aspirin; Z86.718 Personal history of other venous thrombosis and embolism; K21.9 Gastro-esophageal reflux disease without esophagitis; R29.701 NIHSS score 1
CPT/HCPCS: 36415; 70450; 70551; 71045; 73030; 80048; 80061; 82962; 84484; 85025; 85610; 85730; 92523; 92610; 93005; 93306; 94762; 96374; 97161; 97165; 97802; 99218; 99285; Q9957; A4216; C8929; G0378

== ENCOUNTER → 2019-05-24 12:31 | Outpatient (CLI) | payer MEDICARE, SELFPAY ==
[2019-05-06 14:21] VITALS: BMI 25.2
--- NOTE | 2019-05-24 12:37 | MRI_ITS ---
STUDY: MRI CERVICAL SPINE WITHOUT CONTRAST REASON FOR EXAM: Male, 63 years old. Neck pain, left arm and shoulder pain, right eye and mouth droopy TECHNIQUE: Standardized fat and water weighted pulse sequences were obtained in the sagittal and axial planes. COMPARISON: FINDINGS: Normal foramen magnum and brainstem-cervical cord junction. Normal craniovertebral junction. Normal anterior atlantoaxial articulation. Normal odontoid process. Normal cervical lordosis. Normal vertebral bodies and posterior osseous elements. C2-3: Normal endplates. Normal disc height, signal and morphology. Normal central canal and intervertebral neural foramina. C3-4: Normal endplates. Normal disc height, signal and morphology. Normal central canal and intervertebral neural foramina. C4-5: No change in the small left paracentral disc protrusion which produces mild spinal stenosis with abutment of the left hemicord. C5-6: No change in a small central disc protrusion which produces mild spinal stenosis and abutment of the central spinal cord. C6-7: No change in the mild broad disc osteophyte complex which produces mild spinal stenosis with abutment of the central spinal cord but no neural foraminal stenosis. C7-T1: Normal endplates. Normal disc height, signal and morphology. Normal central canal and intervertebral neural foramina. Normal cervical cord. Normal visualized soft tissue structures. MRI/Spine Cervical (Routine) IMPRESSION: No change from 06/22/2015. Electronically Signed: Charlie Werner MD at 14:01 EST Tel , Service support ,
== END ==
PROVIDERS: Family Provider Family Medicine; PCP Family Medicine; Referring Provider Family Medicine; Visit Provider Family Medicine
DX: M54.12 Radiculopathy, cervical region (principal); M25.512 Pain in left shoulder
CPT/HCPCS: 72141

== ENCOUNTER → 2019-12-28 12:22 | Outpatient (CLI) | payer MEDICARE, SELFPAY ==
[2019-12-28 10:05] VITALS: BMI 28.3
--- NOTE | 2019-12-28 12:33 | RAD_ITS ---
STUDY: X-RAY CHEST REASON FOR EXAM: Male, 64 years old. Substernal chest pain, preop for heart catheter TECHNIQUE: PA and lateral views of the chest. COMPARISON: 05/06/2019 FINDINGS: The lungs are clear and expanded. There is no demonstrated pleural abnormality. Normal size heart. Normal mediastinum and slava. Normal visualized pulmonary arteries. Normal visualized aortic arch and descending thoracic aorta. There are diffuse degenerative changes of the visualized thoracic spine. Normal visualized ribs, clavicles, and shoulders. There is no demonstrated abnormality of the visualized soft tissue structures of the upper abdomen. RAD/Chest PA and Lateral IMPRESSION: No acute pulmonary process Electronically Signed: Dhiraj Toussaint MD at 12:49 EDT , Service support ,
[2019-12-28 12:58] LABS: Absolute Lymphocyte Count 1.89 X10^3/uL (0.83-4.51); Absolute Neutrophil Count 5.4 X10^3/uL (2.0-7.7); Basophil# 0.06 X10^3/uL; Basophil% 0.7 % (0-1); Eosinophils% 2.3 % (0-5); Hematocrit 43.6 % (40-54); Hemoglobin 14.7 g/dL (13.0-16.5); Lymphocyte # 1.89 X10^3/ul (4.0); Lymphocyte % 21.8 % (19-41); Mean Corp Hgb Conc 33.7 g/dL (32-36); Mean Corpuscular Hgb 31.3 pg (27.0-32.0); Mean Corpuscular Volume 92.8 fL (80-94); Monocyte# 0.93 X10^3/uL; Monocyte% 10.8 % (0-10); NRBC Flagged by Analyzer 0 % (0-5); Neutrophil # 5.44 X10^3/uL (2.7-7.7); Neutrophil % 62.9 % (47-70); Platelet Count 299 K/mm3 (150-450); RBC Distribution Width CV 13.4 % (11.6-14.6); RBC Distribution Width SD 45.9 fl (35.1-43.9); White Blood Count 8.7 K/mm3 (4.4-11.0)
[2019-12-28 13:30] LABS: Anion Gap 4 (5-15); BUN 13 mg/dL (7-18); BUN/Creat Ratio 18.1 RATIO (10-20); Calcium,Total 9.3 mg/dL (8.5-10.1); Chloride 105 mmol/L (98-107); Creatinine, Serum 0.72 mg/dL (0.70-1.30); EST Glomerular Filtration Rate 116 mL/min (>60); Est Glom Filt Rate - Afr Amer 141 mL/min (>60); Glucose 103 mg/dL (74-106); Potassium 4.1 mmol/L (3.5-5.1); Sodium Level 139 mmol/L (136-145)
== END ==
PROVIDERS: PCP Family Medicine; Referring Provider Internal Medicine Cardiovascular Disease; Visit Provider Internal Medicine Cardiovascular Disease
DX: R53.1 Weakness (principal); R53.83 Other fatigue; R07.9 Chest pain, unspecified; I25.10 Atherosclerotic heart disease of native coronary artery without angina pectoris; I42.8 Other cardiomyopathies; I82.409 Acute embolism and thrombosis of unspecified deep veins of unspecified lower extremity; I10 Essential (primary) hypertension; E78.5 Hyperlipidemia, unspecified
CPT/HCPCS: 36415; 71046; 80048; 85025

== ENCOUNTER 2020-01-09 07:52 | Day surgery (SDC) | payer MEDICARE, SELFPAY ==
[2019-12-28 10:05] VITALS: BMI 28.3
[2020-01-06 10:14] VITALS: BMI 28.3
--- NOTE | 2020-01-09 07:30 | HP_ITS ---
HPI HPI History of Present Illness Details: 64-year-old gentleman with a history of hypertension, hyperlipidemia, nonischemic cardiomyopathy in 2005 with an ejection fraction of 25% which has now improved to 60% and more recently 75%. He presents for evaluation of chest pain which he says is left-sided and radiates across the chest associated with upper extremity weakness. He is also had some headaches as well as nausea. Occasionally he also has sharp chest discomfort. He has seen his primary physician who has scheduled a stress test to be performed next week. He continues to complain of this chest discomfort. You do remember that in 2011 he underwent a cardiac catheterization which demonstrated minimal coronary artery disease. His blood pressure has been not very well controlled. He says that it has been labile. His physical exam here demonstrates clear lung bermudez regular rate and rhythm and no pedal edema. Intake Vital Signs 12/28/19 Height 5 ft 8 in 12/28/19 Weight: 186 lb 12/28/19 BP 134/91 H 12/28/19 Respiration 18 12/28/19 Pulse 88 12/28/19 Pulse Oximetry (%) 98 12/28/19 BMI 26.9 Intake Visit Reasons: TIM per Dr Zepeda for CP/neck pain/high BP Allergies bee venom protein (honey bee) Allergy (Verified 12/28/19 10:05) Anaphylaxis cefadroxil hydrate [From Duricef] Allergy (Verified 12/28/19 10:05) Rash niacin [From Niaspan Extended-Release] Allergy (Verified 12/28/19 10:05) Rash TRINALIN Allergy (Uncoded 12/28/19 10:05) Rash Medications Aspirin [Aspirin, Baby] 81 mg PO QHS 08/08/13 [History Confirmed 12/28/19] Pantoprazole Sodium [Protonix] 40 mg PO DAILY 08/08/13 [History Confirmed 12/28/19] Albuterol IH (ProAir) [Proair Hfa] 2 puff INHALATION Q4H PRN PRN 04/01/16 [History Confirmed 12/28/19] Rosuvastatin Calcium [Crestor] 5 mg PO QHS 01/05/17 [History Confirmed 12/28/19] Apixaban [Eliquis] 5 mg PO BID 10/01/18 [History Confirmed 12/28/19] Losartan Potassium 50 mg PO DAILY 10/01/18 [History Confirmed 12/28/19] nitroglycerin 0.4 mg sublingual tablet 0.4 mg SUBLINGUAL Q5-15M 10/26/18 [History Confirmed 12/28/19] verapamil 180 mg 24 hr capsule,extended release 180 mg PO DAILY 10/26/18 [History Confirmed 12/28/19] Multivitamin with Minerals [Multiple Vitamin] 1 tab PO DAILY 05/06/19 [History Confirmed 12/28/19] Acetaminophen [Tylenol Tablet] 650 mg PO Q6H PRN PRN tab 05/07/19 [Rx Confirmed 12/28/19] epinephrine 0.3 mg/0.3 mL injection, auto-injector 0.3 mg IM ONCE PRN 11/01/19 [History Confirmed 12/28/19] fluticasone fur. 100 mcg-umeclid 62.5 mcg-vilant 25 mcg inhalat.powder INHALATION 12/28/19 [History Confirmed 12/28/19] Ejection fraction %: 65 to 70 PFSH Medical History Nonobstructive atherosclerosis of coronary artery (Chronic) Nonischemic cardiomyopathy (Resolved) Recurrent deep vein thrombosis (DVT) (Chronic) Essential hypertension (Chronic) Hyperlipidemia (Chronic) Asthma (Chronic) Talamantes's esophagus (Chronic) Diverticulitis (Chronic) Facial paresthesia (Chronic 07/2018) Gastroesophageal reflux disease (Chronic) History of GI bleed (Chronic) Insomnia (Chronic) Migraines (Chronic) Myalgia (Chronic) Obstructive sleep apnea (Chronic) Osteoarthritis (Chronic) Squamous cell carcinoma (Chronic) Type 2 diabetes mellitus without complication (Chronic) Elevated troponin I level (Resolved 2005) GI bleed (Resolved) Paroxysmal supraventricular tachycardia (Resolved) Pericarditis (Resolved) Syncope (Resolved) Carotid artery occlusion without infarction (Ruled-out) Surgical History History of appendectomy (Resolved) History of inguinal hernia repair (Resolved) History of left heart catheterization (Resolved 08/19/11) History of left knee surgery (Resolved) Family History Brother Cancer prostate Diabetes Father Cancer stomach CAD (coronary artery disease) Heart disease Hypertension Hearing loss Mother CAD (coronary artery disease) Diabetes Heart disease Hypertension CVA (cerebral vascular accident) Social History (Updated 12/28/19 @ 13:[address] Geovanny Aldridge MD) Smoking Status: Never smoker alcohol intake: never substance use type: does not use ROS Const Const: Positive for fatigue and weakness; negative for headache(s), frequent falls, difficulty sleeping or excessive sweating Eyes Eyes: Negative for loss of peripheral vision, transient loss of vision, blurry vision, double vision or tunnel vision ENT ENT: Negative for headache(s), dizziness, Nosebleed/epistaxis or balance problems Cardio Chest Pain: Yes Frequency: other (4-6 times over the past 4 weeks) Character: tightness (pressure) Location: left chest, right chest, other (radiates to arms) Palpitations: No Edema: None Muscle aches with walking: None Additional Details: feels pressure building up in head with blurred vision Resp Respiratory: Negative for SOB with activity, SOB at rest, SOB orthopnea\SOB lying down, Cough or paroxysmal nocturnal dyspnea GI GI: Negative nausea, vomiting, heartburn or black,tarry stools : Negative for hematuria Musc Musc: Positive for muscle aches/ myalgia; negative for muscle weakness, joint pain or balance problems Skin Skin: Negative non-healing lesions, rash or unusual bruising Neuro Neuro: Positive for weakness; negative for dizziness, lightheadedness, near syncope, syncope, orthostatic symptoms, frequent falls, headache(s), blurry vision, double vision or lack of coordination Clarence Hematologic/Lymphatic: Negative for easy bleeding or easy bruising Endo Endo: Positive for fatigue; negative for excessive sweating or increased thirst/drinking Psych Psych: Negative for anxiety or depression Allergy Allergy/Immunology: Negative for hives, Negative for rash Cardiology Exam Const Appearance: cooperative, healthy appearing, no acute distress, well developed and well groomed Nutritional Appearance: average body habitus and well nourished Orientation: alert, awake and oriented x3 Head Head: normal to inspection, normocephalic and atraumatic Ears: hearing grossly normal bilaterally and external ears normal Nose: external nose normal, nares normal, nasal mucous membranes and turbinates normal, septum normal, no nasal discharge Face and Sinus: face symmetric Mouth: oral mucosae normal, tongue normal, oropharynx normal and moist mucous membranes Teeth and gingiva: dentition normal Throat: posterior oropharynx normal, tonsils normal and uvula midline Eyes General: appearance normal, both eyes and all related structures Eyelids: eyelids normal Conjunctivae: conjunctivae normal Pupils: PERRL, normal by confrontation and accommodation normal EOM: EOM intact bilaterally Neck Neck: normal visual inspection, trachea midline and no JVD JVD: +5 Carotids: normal carotid upstroke and bounding pulses Chest Chest inspection: normal inspection of the chest, symmetric chest movement and normal respiratory effort Auscultation: Bilateral: Clear to Auscultation Cardio Palpation: normal PMI Rate: regular rate Rhythm: regular rhythm Heart sounds: S1 normal, S2 normal and normal, physiologic split S2; negative rub, gallop or murmur GI GI: normal to inspection, soft, no hepatosplenomegaly and bowel sounds present Neuro General: alert, awake, oriented x3, gait normal, moves all extremities and no focal sensory deficit Skin Skin: no rashes or lesions noted Extremities Pulses: Normal: Right Femoral Pulse, Left Femoral Pulse, Right Dorsalis Pedis Pulse, Left Dorsalis Pedis Pulse, Right Posterior Tibial Pulse, Left Posterior Tibial Pulse, Right Radial Pulse, Left Radial Pulse Lower Extremity Edema: None: Bilateral Musculoskel Musculoskeletal: No joint tenderness Psych Psychological: normal affect Assessment & Plan 1. Chest pain R07.9 Plan He complains of chest discomfort which is difficult to characterize. There are some features of which which appear to be typical and would warrant further evaluation possibly with a cardiac catheterization. He has been scheduled for a stress test and I would recommend that we pursue the above and depending on the results further recommendations will be made. However my threshold for recommending the former would be low. I have explained this to him he understands and agrees to proceed. Orders Orders: 12 Lead EKG performed by [facility] Today Basic Metabolic Profile (BMP) Today Chest PA and Lateral Today 2. Essential hypertension I10 Plan He does have a history of hypertension with his blood pressure being labile. Today's readings are not particularly abnormal and I would continue him on the current medication until after his procedure. Perhaps his losartan can be increased to 100 mg a day. Orders Orders: 12 Lead EKG performed by [facility] Today Basic Metabolic Profile (BMP) Today Chest PA and Lateral Today Plan Detail Other Orders Orders: 12 Lead EKG performed by [facility] Today E78.5, I25.10, I42.8, I82.409, R53.1, R53.83 Basic Metabolic Profile (BMP) Today E78.5, I25.10, I42.8, I82.409, R53.1, R53.83 CBC W/Diff, Automated Today R53.1 Chest PA and Lateral Today E78.5, I25.10, I42.8, I82.409, R53.1, R53.83 Follow Up 1 Year ([facility]) Coding Level of Care Code Off vis,est,level 4 Diagnoses Chest pain R07.9 Essential hypertension I10 Coding Level of Care Code Off vis,est,level 4 Diagnoses Chest pain R07.9 Essential hypertension I10 Supplemental Info Supplemental Information Labs LDL Cholesterol 115 mg/dL (0-130) 05/07/19 HDL Cholesterol 54 mg/dL (40-) 05/07/19 Triglycerides 80 mg/dL (-199) 05/07/19 VLDL Cholesterol 16 mg/dL (5-40) 05/07/19 Diagnostics Electrocardiogram 12/28/19 Echocardiogram 05/06/19 Chest X-Ray 12/28/19
--- NOTE | 2020-01-09 10:23 | CL.D_ITS ---
Patient Name: PARVEZ ROGERS Study Date: 01/09/2020 Performing: Geovanny Aldridge MD Ht: 68.11 inches 173 cm : 1955 Wt: 185.19 lbs 84 kg Age: 64 Gender: male BSA: 1.98 PROCEDURE(S) PERFORMED [id number]/COR/LV CLINICAL PROFILE AND INDICATIONS Indications: Suspected CAD Heart Failure: None Stress/Imaging Date: 01/04/2020 CAD Presentations: Stable angina. CONCLUSIONS Moderate proximal RCA non obstructive RECOMMENDATIONS Medical therapy DESCRIPTION OF PROCEDURE The patient arrived to the procedure lab. The risks and benefits of the procedure as well as a full d escription of our services here and current unavailability of surgical backup were fully explained to the patient and/or their significant other prior to the catheterization. The Timeout was completed, verifying the correct patient and procedure. The patient's procedural site was prepped and draped in the usual fashion. Local anesthetic was given subcutaneously to right radial region with Lidocaine 2% . Using a modified Seldinger technique, arterial access was obtained via the right radial artery, a 6 Fr sheath was inserted. Left Coronary Artery selective angiography was performed in multiple views u sing a 5 Fr. 4.0 [place] catheter. Left Coronary Artery selective angiography was performed in multiple views using a 5 Fr. JL4 catheter. Right Coronary Artery selective angiography was then performed in multiple views using a 5 Fr. JR 5 catheter. Left Ventriculography was performed in YANEZ projection using a 5 Fr. Pigtail catheter. LV to AO pullback pressures were then recorded.The arteria l sheath was pulled and a TR Band was applied for hemostasis w/ 8ml air CORONARY ANGIOGRAPHY DOMINANCE: Right Dominant LEFT HEART ASSESSMENT Left Ventricular Ejection Fraction: by LV Gram 60 % Normal LV wall motion Normal Left Ventricular systolic function LEFT MAIN: Non-obstructive LEFT ANTERIOR DESCENDING ARTERY: Mild luminal irregularities CIRCUMFLEX ARTERY: Mild luminal irregularities RIGHT CORONARY ARTERY: PROX RCA: 60 % Stenosis COMPLICATIONS No Complications PROCEDURE MEDICATIONS Fentanyl 50 mcg IV Versed 1 mg IV Baby Aspirin (81mg) 1 Tabs PO @ 01/09/2020 08:30:22 Heparin diluted in 23cc Heparinized saline. Patient given 10cc IA of this solution. 01/09/2020 09:42: 53 Verapamil 2.5mg, Ntg 100mcgs, 2000 units of Heparin diluted in 23cc Heparinized saline. Patient give n 10cc IA of this solution. 01/09/2020 09:42:53 SUMMARY OF HEMODYNAMIC DATA Time AIR REST ECG 08:17:40 AO 113/52 (74) SA 09:45:15 LV 91/-1, 10 10:07:30 LV 101/-1, 7 10:07:36 LV 99/0, 7 10:08:22 LVp 96/1, 9 10:08:27 AOp 101/54 (74) 10:08:32 Signed By Geovanny Aldridge MD On 01/09/2020 10:21:59 Geovanny Aldridge MD
== END 2020-01-09 12:10 | disposition home or self-care (01) ==
LOC: CLSP 07:53
PROVIDERS: PCP Family Medicine; Referring Provider Internal Medicine Cardiovascular Disease; Visit Provider Internal Medicine Cardiovascular Disease
DX: I25.10 Atherosclerotic heart disease of native coronary artery without angina pectoris (principal); R07.9 Chest pain, unspecified; I10 Essential (primary) hypertension; E78.5 Hyperlipidemia, unspecified; K21.9 Gastro-esophageal reflux disease without esophagitis; E11.9 Type 2 diabetes mellitus without complications; G47.33 Obstructive sleep apnea (adult) (pediatric); J45.909 Unspecified asthma, uncomplicated; I42.8 Other cardiomyopathies; Z79.82 Long term (current) use of aspirin; Z82.49 Family history of ischemic heart disease and other diseases of the circulatory system
CPT/HCPCS: 93458; 99152; 99153; J7040; C1769; C1894; Q9967

== ENCOUNTER 2020-02-24 18:39 | Emergency (ER) | payer MEDICARE, SELFPAY ==
[2020-01-06 10:14] VITALS: BMI 28.3
[2020-02-24 18:40] VITALS: BP 141/91; PULSE 61; RESP 16; TEMP 36.8; O2SAT 96; BMI 27.8
[2020-02-24 19:06] LABS: Bedside Glucose 111 mg/dL (70-110)
--- NOTE | 2020-02-24 19:27 | EKG12_ITS ---
Test Reason : DIZZYNESS Blood Pressure : / mmHG Vent. Rate : 061 BPM Atrial Rate : 061 BPM P-R Int : 174 ms QRS Dur : 096 ms QT Int : 406 ms P-R-T Axes : 012 -20 029 degrees QTc Int : 408 ms Normal sinus rhythm RSR' or QR pattern in V1 suggests right ventricular conduction delay Inferior-posterior infarct , age undetermined Abnormal ECG Confirmed by ARIS AMOR, DAVID ([id number]), advertising editor POP SALGADO ([id number]) on 03/09/2020 9:49:27 A M Referred By: TAHIR Confirmed By:KAMALJIT HURST MD
--- NOTE | 2020-02-24 19:27 | CT_ITS ---
STUDY: CT BRAIN WITHOUT CONTRAST REASON FOR EXAM: Male, 64 years old. DIZZY SINCE NOON TODAY -- HX:HTN,SKIN CANCER RADIATION DOSAGE (If Supplied By Facility): CTDIvol = ( 44.99 ) mGy, DLP = ( 779.24 ) mGycm TECHNIQUE: Transaxial CT imaging of the brain was performed without administration of intravenous contrast material. Individualized dose optimization techniques were used for this CT. COMPARISON: 05/06/2019. FINDINGS: Normal soft tissue structures. Normal calvarium. Calcification of cavernous carotids. Mild atrophy and periventricular white matter ischemic changes.. Normal basal ganglia and thalami. Normal brainstem. Normal cerebellum. There is no intracranial hemorrhage. There are no findings of an acute ischemic infarction. Normal visualized paranasal sinuses. CT/Brain/Head without Contrast IMPRESSION: Mild atrophy and periventricular white matter ischemic change. No evidence for acute bleed. If concern for acute infarct MRI recommended.. Electronically Signed: Deo Lezama MD at 20:30 EDT , Service support ,
[2020-02-24 19:33] VITALS: BP 141/91; PULSE 61; RESP 16; TEMP 36.8; O2SAT 98
[2020-02-24 20:00] VITALS: BP 152/80; PULSE 56; PULSE 97; RESP 18; TEMP 36.8; O2SAT 97
--- NOTE | 2020-02-24 20:03 | RAD_ITS ---
STUDY: X-RAY CHEST REASON FOR EXAM: Male, 64 years old. DIZZINESS TECHNIQUE: AP portable COMPARISON: 12/28/2019 FINDINGS: The lungs are clear and expanded. There is no demonstrated pleural abnormality. Mild enlargement of the cardiac silhouette.. Normal mediastinum and slava. Normal visualized pulmonary arteries. Mildly calcified aortic arch and descending thoracic aorta. Dorsal spine demonstrates degenerative change. Normal visualized ribs, clavicles, and shoulders. There is no demonstrated abnormality of the visualized soft tissue structures of the upper abdomen. RAD/Chest 1 View (Portable) IMPRESSION: ASHD. No acute cardiopulmonary pathology. Electronically Signed: Deo Lezama MD at 20:19 EDT , Service support ,
[2020-02-24 20:07] LABS: Absolute Lymphocyte Count 1.83 X10^3/uL (0.83-4.51); Absolute Neutrophil Count 3.8 X10^3/uL (2.0-7.7); Basophil# 0.05 X10^3/uL; Basophil% 0.7 % (0-1); Eosinophil# 0.22 X10^3/uL; Eosinophils% 3.3 % (0-5); Hematocrit 45.5 % (40-54); Hemoglobin 15.3 g/dL (13.0-16.5); Lymphocyte # 1.83 X10^3/ul (4.0); Lymphocyte % 27.2 % (19-41); Mean Corp Hgb Conc 33.6 g/dL (32-36); Mean Corpuscular Hgb 31.1 pg (27.0-32.0); Mean Corpuscular Volume 92.5 fL (80-94); Mean Platelet Vol. 9.8 fl (6.2-12.0); Monocyte# 0.79 X10^3/uL; Monocyte% 11.7 % (0-10); NRBC Flagged by Analyzer 0 % (0-5); Neutrophil # 3.77 X10^3/uL (2.7-7.7); Neutrophil % 56.1 % (47-70); Platelet Count 275 K/mm3 (150-450); RBC Distribution Width CV 12.6 % (11.6-14.6); RBC Distribution Width SD 42.8 fl (35.1-43.9); Red Blood Count 4.92 M/mm3 (4.6-6.2); White Blood Count 6.7 K/mm3 (4.4-11.0)
[2020-02-24 20:19] LABS: Anion Gap 6 (5-15); BUN 10 mg/dL (7-18); BUN/Creat Ratio 12.1 RATIO (10-20); Calcium,Total 9.2 mg/dL (8.5-10.1); Chloride 107 mmol/L (98-107); Creatinine, Serum 0.83 mg/dL (0.70-1.30); EST Glomerular Filtration Rate 98 mL/min (>60); Est Glom Filt Rate - Afr Amer 119 mL/min (>60); Estimated Creatinine Clearance 87.55 ml/min; Glucose 109 mg/dL (74-106); Potassium 4.1 mmol/L (3.5-5.1); Sodium Level 142 mmol/L (136-145)
--- NOTE | 2020-02-24 20:46 | ED.VISSUMM ---
- ER Visit Summary Date of Service: 02/24/20 Chief Complaint: Dizziness/vertigo History of Present Illness: The patient is a 64 M presenting with dizziness/vertigo. Patient states he started to feel lightheaded earlier today. He states it went away and then later developed a spinning sensation. He states he tried to walk and felt unbalanced and thought that he was going to fall. He did not fall. He had no syncope. He denies chest pain or shortness of breath. He had nausea with no vomiting. Denies fever or recent illness. Denies vision or speech changes. Denies numbness or weakness. He states the spinning sensation was not worsened by change in position. Physical Examination: Vitals are stable. Patient is afebrile. Alert no acute distress. HEENT exam is unremarkable. Neck is supple. Lungs are clear and equal bilaterally. Heart is regular rate and rhythm. Abdomen is soft nontender nondistended. Extremities are unremarkable. Skin is warm and dry. No focal neurologic deficit. NIH 0 Remainder of exam is unremarkable. Emergency Department Course and Treatment: On arrival, nursing noted a mild left facial droop. This is now resolved. NIH 0. EKG is sinus rhythm rate of 61 with no acute ischemic changes. CBC, chemistries unremarkable. Troponin is negative. Chest x-ray shows no acute process. CT head shows mild atrophy and periventricular white matter ischemic change. No evidence for acute bleed. If concern for acute infarct MRI recommended. On re-evaluation, he complains of mild persistent vertigo. Discussed with hospitalist for observation. Disposition: Observation Impression: Vertigo This note was generated with [employer] dictation software. It may contain incorrect words, spelling, and punctuation that were not noted in review of the chart prior to signing ED Disposition - Plan for ED Patient: Referrals: Jordan Zepeda MD [Primary Care Provider] -
[2020-02-24 21:00] VITALS: BP 150/78; PULSE 60; RESP 17; TEMP 36.8; O2SAT 97
[2020-02-24 21:07] VITALS: BP 137/78; PULSE 60; RESP 17; TEMP 36.8; O2SAT 99
--- NOTE | 2020-02-24 21:09 | DCINST_ITS ---
You will use the following diet at home:: Cardiac Call your doctor if you observe: - - worsening dizziness Instructions: Understanding Dizziness, Balance Problems, and Fainting, The Inner Ear: Understanding the Balance System, Inner Ear Problems: Causes of Dizziness (Vertigo), Managing Dizziness (Vertigo) with Medications, Managing Balance Problems: Vestibular Rehabilitation Therapy Allergies/Adverse Reactions: Allergies bee venom protein (honey bee) Allergy (Verified 12/28/19 10:05) Anaphylaxis cefadroxil hydrate [From Duricef] Allergy (Verified 12/28/19 10:05) Rash niacin [From Niaspan Extended-Release] Allergy (Verified 12/28/19 10:05) Rash TRINALIN Allergy (Uncoded 12/28/19 10:05) Rash Medications to take at Discharge Aspirin [Aspirin, Baby] 81 mg PO QHS 08/08/13 Pantoprazole Sodium [Protonix] 40 mg PO DAILY 08/08/13 Albuterol IH (ProAir) [Proair Hfa] 2 puff INHALATION Q4H PRN PRN 04/01/16 Rosuvastatin Calcium [Crestor] 5 mg PO QHS 01/05/17 Apixaban [Eliquis] 5 mg PO BID 10/01/18 Losartan Potassium 50 mg PO DAILY 10/01/18 nitroglycerin 0.4 mg sublingual tablet 0.4 mg SUBLINGUAL Q5-15M 10/26/18 verapamil 180 mg 24 hr capsule,extended release 180 mg PO DAILY 10/26/18 Multivitamin with Minerals [Multiple Vitamin] 1 tab PO DAILY 05/06/19 Acetaminophen [Tylenol Tablet] 650 mg PO Q6H PRN PRN tab 05/07/19 epinephrine 0.3 mg/0.3 mL injection, auto-injector 0.3 mg IM ONCE PRN 11/01/19 fluticasone fur. 100 mcg-umeclid 62.5 mcg-vilant 25 mcg inhalat.powder 1 puff INHALATION DAILY 12/28/19 Meclizine HCl [Antivert] 25 mg PO TID PRN PRN #30 tab 02/24/20 The following prescriptions were given: Meclizine HCl [Antivert] 25 mg PO TID PRN PRN #30 tab PRN Reason: dizziness, vertigo Transmission Status: Pending to [facility]/pharmacy #[id number] Orders to be completed after discharge: Physical Therapy Evaluation Location: None Selected Primary Care Physician: Jordan Zepeda MD [Primary Care Provider] - (follow up in 1 week) Test Results: Test results from this visit will be discussed in further detail at your follow- up appointment, if applicable.
--- NOTE | 2020-02-24 21:12 | PCM.CONS.GEN ---
Problem List (1) Vertigo Status: Acute (2) Weakness Status: Resolved (3) Fatigue Status: Resolved (4) Chest pain Status: Resolved (5) Nonobstructive atherosclerosis of coronary artery Status: Chronic (6) Nonischemic cardiomyopathy Status: Resolved Comment: EF 2005 was 25% resolved (7) Recurrent deep vein thrombosis (DVT) Status: Chronic (8) Essential hypertension Status: Chronic (9) Hyperlipidemia Status: Chronic Reason for Consult Date of Consultation: 02/24/20 Reason for Consultation: dizziness History of Present Illness: The patient is a 64 year old M presents with dizziness that began around 4 PM today. Just felt the room was spinning and when he closes eyes just felt his eyes fluttering. Has had similar episodes in the past but never to this severe. Patient has been evaluated for vertigo in the past and has taken meclizine and also seen physical therapy for vestibular rehab in the past. Since being in the emergency room, patient is feeling better. Patient underwent work-up in the emergency room that showed no acute process. [] Past Medical History Past Medical History (Chronic Problems): Chronic Problems (Last Reviewed 02/24/20 @ 21:[address] Drew Yang DO) Nonobstructive atherosclerosis of coronary artery (Chronic) Recurrent deep vein thrombosis (DVT) (Chronic) Essential hypertension (Chronic) Hyperlipidemia (Chronic) Medical History: Medical History (Last Reviewed 02/24/20 @ 21:[address] Drew Yang DO) Nonobstructive atherosclerosis of coronary artery (Chronic) I25.10 Nonischemic cardiomyopathy (Resolved) I42.8 EF 2005 was 25% resolved Recurrent deep vein thrombosis (DVT) (Chronic) I82.409 Essential hypertension (Chronic) I10 Hyperlipidemia (Chronic) E78.5 Asthma J45.909 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 Diverticulitis K57.92 Facial paresthesia Onset Date: 07/2018 R20.9 Gastroesophageal reflux disease K21.9 History of GI bleed Z87.19 Insomnia G47.00 Migraines G43.909 Myalgia M79.10 Obstructive sleep apnea G47.33 Osteoarthritis M19.90 Squamous cell carcinoma Type 2 diabetes mellitus without complication E11.9 Elevated troponin I level Onset Date: 2005 R79.89 GI bleed (Resolved) K92.2 Paroxysmal supraventricular tachycardia I47.1 Pericarditis I31.9 Syncope R55 Carotid artery occlusion without infarction I65.29 right Allergies bee venom protein (honey bee) Allergy (Verified 12/28/19 10:05) Anaphylaxis cefadroxil hydrate [From Duricef] Allergy (Verified 12/28/19 10:05) Rash niacin [From Niaspan Extended-Release] Allergy (Verified 12/28/19 10:05) Rash TRINALIN Allergy (Uncoded 12/28/19 10:05) Rash Home Medications: Ambulatory Orders Medication Instructions Recorded Aspirin [Aspirin, Baby] 81 mg PO QHS 08/08/13 Pantoprazole Sodium [Protonix] 40 mg PO DAILY 08/08/13 Albuterol IH (ProAir) [Proair Hfa] 2 puff INHALATION Q4H PRN PRN 04/01/16 Rosuvastatin Calcium [Crestor] 5 mg PO QHS 01/05/17 Apixaban [Eliquis] 5 mg PO BID 10/01/18 Losartan Potassium 50 mg PO DAILY 10/01/18 nitroglycerin 0.4 mg sublingual 0.4 mg SUBLINGUAL Q5-15M 10/26/18 tablet verapamil 180 mg 24 hr 180 mg PO DAILY 10/26/18 capsule,extended release Multivitamin with Minerals 1 tab PO DAILY 05/06/19 [Multiple Vitamin] Acetaminophen [Tylenol Tablet] 650 mg PO Q6H PRN PRN tab 05/07/19 epinephrine 0.3 mg/0.3 mL 0.3 mg IM ONCE PRN 11/01/19 injection, auto-injector fluticasone fur. 100 mcg-umeclid 1 puff INHALATION DAILY 12/28/19 62.5 mcg-vilant 25 mcg inhalat.powder Meclizine HCl [Antivert] 25 mg PO TID PRN PRN #30 tab 02/24/20 Surgical History: Surgical History (Last Reviewed 02/24/20 @ 21:[address] Drew Yang, DO) History of appendectomy Z90.49 History of inguinal hernia repair Z98.890, Z87.19 History of left heart catheterization Onset Date: 01/09/20 Z98.890 08/19/2011 History of left knee surgery Z98.890 Surgical History: appendectomy Psychiatric History: No pertinent psych hx Smoking Status: Never smoker - *Family History Maternal Family History: Family History (Last Reviewed 02/24/20 @ 21:[address] Drew Yang DO) Brother Cancer Diabetes Father Cancer CAD (coronary artery disease) Heart disease Hypertension Hearing loss Mother CAD (coronary artery disease) Diabetes Heart disease Hypertension CVA (cerebral vascular accident) History Items: Diabetes Paternal Family History: Family History (Last Reviewed 02/24/20 @ 21:[address] Drew Yang DO) Brother Cancer Diabetes Father Cancer CAD (coronary artery disease) Heart disease Hypertension Hearing loss Mother CAD (coronary artery disease) Diabetes Heart disease Hypertension CVA (cerebral vascular accident) History Items: - - stomach cancer Sibling Family History: Family History (Last Reviewed 02/24/20 @ 21:[address] Drew Yang DO) Brother Cancer Diabetes Father Cancer CAD (coronary artery disease) Heart disease Hypertension Hearing loss Mother CAD (coronary artery disease) Diabetes Heart disease Hypertension CVA (cerebral vascular accident) History Items: Cancer Review of Systems Constitutional: Denies: Anorexia, Chills, Fever Eyes: Reports: Blurred vision. Denies: Double vision HEENT: Denies: Head Aches, Sinus Congestion, Sinus Drainage Cardiovascular: Denies: Chest Pain, Palpitations Respiratory: Denies: Cough, Shortness of breath at rest, Sputum production Gastrointestinal: Denies: Abdominal Pain, Nausea, Vomiting Genitourinary: Denies: Dysuria Musculoskeletal: Denies: Joint Pain, Joint Tenderness Skin: Denies: Rash, Wounds Neurological: Reports: Balance problems, Blurred vision Hematologic/ Lymphatic: Denies: Easy Bruising, Easy Bleeding, Hx of blood clot Comment: All review of systems were negative except as mentioned above in the history of present illness and the other review of systems. Patient Problems: Active and Suspected Problems (Last Reviewed 02/24/20 @ 21:[address] Drew Yang DO) Vertigo (Acute) - Physical Exam Vitals/I&O's: Vital Signs Temp Pulse Resp BP Pulse Ox 36.8 C 60 17 137/78 H 99 02/24/20 21:07 02/24/20 21:07 02/24/20 21:07 02/24/20 21:07 02/24/20 21:07 Oxygen Delivery Method Room Air Weight: 85.7 kg Body Mass Index (BMI) 27.8 Finger Stick Blood Glucose 111 General: Alert, Oriented x3, Cooperative, No apparent distress, Well developed, Well nourished HEENT: Atraumatic, PERRLA, EOMI, Normocephalic, - - Patient had bilateral neck stagnates that fatigued. Oral: Moist Mucosa, No Gingival or Mucosal Lesions/ Ulcerations Neck: No Nodes, Thyroid Normal Size and Texture Lungs: Clear to auscultation, Normal air movement, No rhonchi, No wheeze, No rales Cardiovascular: Regular rate, Regular Rhythm, Normal S1, Normal S2, No murmurs Abdomen: Bowel Sounds Present, Soft, Non Tender, Non-Distended, No Hepato-splenomegaly Extremities: No edema, No Calf Tenderness Skin: No rashes, No breakdown Musculoskeletal: No Tenderness to Palpation of Joints or Extremities, No Muscle Wasting Neurological: Cranial nerves II-XII grossly intact, Neuro grossly intact, Motor Exam 5/5 strength throughout, Sensory exam intact to light touch and pain, Coordination normal, Gait narrow based and stable Psych/Mental Status: Normal Affect, Appropriate Laboratory Results 02/24/20 18:50: POC Glucose 111 H 02/24/20 18:55: WBC 6.7, RBC 4.92, Hgb 15.3, Hct 45.5, MCV 92.5, MCH 31.1, MCHC 33.6, RDW Std Deviation 42.8, RDW Coeff of Codie 12.6, Plt Count 275, MPV 9.8, Immature Gran % (Auto) 1.000 H, Neut % (Auto) 56.1, Lymph % (Auto) 27.2, [place] % (Auto) 11.7 H, Eos % (Auto) 3.3, Baso % (Auto) 0.7, Absolute Neuts (auto) 3.8, Absolute Lymphs (auto) 1.83, Nucleated RBC % 0 02/24/20 18:55: Sodium 142, Potassium 4.1, Chloride 107, Carbon Dioxide 29.0, Anion Gap 6, BUN 10, Creatinine 0.83, Estim Creat Clear Calc 87.55, Est GFR (MDRD) Af Amer 119, Est GFR (MDRD) Non-Af 98, BUN/Creatinine Ratio 12.1, Glucose 109 H, Calcium 9.2, Troponin I < 0.015 EKG reviewed and showed normal sinus rhythm with an incomplete right bundle branch block Clinical Impression(s) from Imaging Studies Brain CT 02/24/20 19:27 IMPRESSION: Mild atrophy and periventricular white matter ischemic change. No evidence for acute bleed. If concern for acute infarct MRI recommended.. Electronically Signed: Deo Lezama MD at 20:30 EDT , Service support , Chest X-Ray 02/24/20 20:03 IMPRESSION: ASHD. No acute cardiopulmonary pathology. Electronically Signed: Deo Lezama MD at 20:19 EDT , Service support , Assessment/Plan All Active Problems (Last Reviewed 02/24/20 @ 21:[address] Drew Yang, DO) Vertigo (Acute) Weakness (Resolved) Fatigue (Resolved) Chest pain (Resolved) Nonischemic cardiomyopathy (Resolved) Acute electrocardiogram changes (Resolved) Altered mental status (Resolved) Chest pain (Resolved) Chest pain (Resolved) Confusion (Resolved) DVT (deep venous thrombosis) (Resolved) Dizziness (Resolved) GI bleed (Resolved) 1. Acute vertigo secondary to benign paroxysmal positional vertigo: Patient is feeling better at this time. Discussed my findings with patient and his significant other at bedside. I explained that I do not feel that this is a posterior circulation stroke as the clinical findings do not support that. And also based on the fact the patient has had an extensive history of vertigo past. Patient does have meclizine at home but is likely over a year old so we will prescribe him another prescription. I advised him to follow-up with physical therapy for vestibular rehab. I told the patient if he does not feel well enough that we could certainly bring him in here in the hospital but I do not feel that a stroke work-up is necessary at this time. He states that he would prefer to go home. Discussed with Dr. Cota in the emergency room. Office Visits / Consults: [id number] OP Consult L5
[2020-02-24 21:23] VITALS: BP 130/62; PULSE 56; RESP 16; O2SAT 98
--- NOTE | 2020-02-24 21:23 | ED.RN ---
discharge ordered by floor dr. best to be done in ED. pt verablizes understanding of d/c paperwork and instructions. pt d/c.
== END 2020-02-24 21:25 | disposition home or self-care (01) ==
LOC: ED 19:39
PROVIDERS: Emergency Provider Emergency Medicine; PCP Family Medicine
DX: R42 Dizziness and giddiness (principal); E78.00 Pure hypercholesterolemia, unspecified; I10 Essential (primary) hypertension; Z79.82 Long term (current) use of aspirin; Z79.01 Long term (current) use of anticoagulants
CPT/HCPCS: 70450; 71045; 80048; 82962; 84484; 85025; 93005; 99284; A4216

== ENCOUNTER → 2020-07-17 07:48 | Outpatient (CLI) | payer MEDICARE, SELFPAY ==
[2020-07-05 08:25] VITALS: BMI 27.6
--- NOTE | 2020-07-17 07:50 | ECHOCS_ITS ---
Reason For Study: DYSPNEA/SOB Procedure This was a 2D Doppler, Color Flow transthoracic echocardiogram. The study was technically difficult. Contrast injection was performed. Exam performed in department. Left Ventricle Normal LV size. Left ventricular systolic function is normal. The estimated ejection fraction is 70 %. Stage 1 diastolic dysfunction. No regional wall motion abnormalities noted. Right Ventricle Normal RV size. Normal systolic function. Atria Normal left atrium. Normal right atrium. Mitral Valve Normal mitral valve. Tricuspid Valve Normal tricuspid valve. Mild (1+) tricuspid valve insufficiency. Pulmonary artery systolic pressure is 20 mmHg. Aortic Valve Trisinus/trileaflet aortic valve. Peak aortic valve gradient 16 mmHg. Mean aortic valve gradient 9 mmHg. Mild (1+) aortic valve insufficiency. Pulmonic Valve The pulmonic valve is not well visualized. Great Vessels Normal aortic root. The pulmonary artery is normal size. Normal inferior vena cava. Pericardium/Pleural No pericardial effusion. Medication 22 gauge I.V. with prn adaptor inserted into right arm. Diluted definity 3.0ml given slow IV push to enhance endocardial definition. MMode/2D Measurements & Calculations LVIDd: 4.7 cm IVSd: 1.1 cm LVOT diam: 2.0 cm LVIDs: 2.9 cm LVPWd: 1.1 cm FS: 38.7 % LVOT area: 3.0 cm2 Ao root diam: 3.3 cm LAV(MOD-bp): 41.9 ml LA A4 area: 15.4 cm2 LAV(MOD-bp) Indexed: 21.2 ml/m2 LAV(MOD-sp2): 40.4 ml LAV(MOD-sp4): 40.4 ml LA dimension(2D): 3.2 cm RA A4 area: 13.6 cm2 Time Measurements MV dec time: 0.25 sec Doppler Measurements & Calculations MV E max sav: 76.2 cm/sec Lat Peak E' Sav: 6.3 cm/sec Med Peak E' Sav: 6.3 cm/sec MV A max sav: 85.2 cm/sec E/E' lat: 12.1 E/E' med: 12.1 MV E/A: 0.89 Ao V2 max: 202.0 cm/sec AI max sav: 410.5 cm/sec LV V1 max: 143.4 cm/sec Ao max P.4 mmHg AI max P.4 mmHg LV V1 max P.2 mmHg Ao V2 mean: 139.7 cm/sec AI dec slope: 173.0 cm/sec2 LV V1 mean P.5 mmHg Ao mean P.7 mmHg AI P1/2t: 695.0 msec LV V1 mean: 99.7 cm/sec Ao V2 VTI: 41.3 cm LV V1 VTI: 30.0 cm KATIE(I,D): 2.2 cm2 KATIE(V,D): 2.1 cm2 SV(LVOT): 90.4 ml PA V2 max: 136.5 cm/sec TR max sav: 210.4 cm/sec TR max P.7 mmHg Interpretation Summary Normal LV size. Left ventricular systolic function is normal. The estimated ejection fraction is 70 %. Stage 1 diastolic dysfunction. Mild (1+) aortic valve insufficiency. Contrast injection was performed. Compared to prior study, there is no significant change. Ordering Physician: Will Vences Referring Physician: Jordan Zepeda Performed By: Brissa Kunz RDCS, RVT
== END ==
PROVIDERS: PCP Family Medicine; Referring Provider Nurse Practitioner Family; Visit Provider Nurse Practitioner Family
DX: R06.00 Dyspnea, unspecified (principal); R06.02 Shortness of breath
CPT/HCPCS: 93306; Q9957; A4216; C8929

== ENCOUNTER 2021-07-16 10:43 | Outpatient (CLI) | payer MEDICARE, SELFPAY ==
[2021-07-16 12:29] LABS: Absolute Lymphocyte Count 1.83 X10^3/uL (0.83-4.51); Absolute Neutrophil Count 6.8 X10^3/uL (2.0-7.7); Basophil# 0.06 X10^3/uL; Basophil% 0.6 % (0-1); Eosinophil# 0.25 X10^3/uL; Eosinophils% 2.5 % (0-5); Hematocrit 45.8 % (40-54); Hemoglobin 15.4 g/dL (13.0-16.5); Lymphocyte # 1.83 X10^3/ul (0.83-4.51); Lymphocyte % 18.1 % (19-41); Mean Corp Hgb Conc 33.6 g/dL (32-36); Mean Corpuscular Hgb 31.5 pg (27.0-32.0); Mean Corpuscular Volume 93.7 fL (80-94); Monocyte# 0.93 X10^3/uL; Monocyte% 9.2 % (0-10); NRBC Flagged by Analyzer 0 % (0-5); Neutrophil # 6.83 X10^3/uL (2.7-7.7); Neutrophil % 67.7 % (47-70); Platelet Count 316 K/mm3 (150-450); RBC Distribution Width CV 13.2 % (11.6-14.6); Red Blood Count 4.89 M/mm3 (4.6-6.2); White Blood Count 10.1 K/mm3 (4.4-11.0)
[2021-07-16 13:04] LABS: BNP,B-Type NATRIURETIC PEPTIDE 10.1 pg/mL (0-100)
[2021-07-16 13:14] LABS: Amylase 46 U/L (25-115); Anion Gap 6 (5-15); BUN 18 mg/dL (7-18); BUN/Creat Ratio 25.9 RATIO (10-20); CRP, High Sensitivity Cardiac 6.17 mg/L; Calcium,Total 9.1 mg/dL (8.5-10.1); Chloride 105 mmol/L (98-107); EST Glomerular Filtration Rate 120 mL/min (>60); Est Glom Filt Rate - Afr Amer 145 mL/min (>60); Glucose 108 mg/dL (74-106); Lipase 81 U/L (73-393); Sodium Level 139 mmol/L (136-145)
[2021-07-16 14:40] LABS: Troponin-I HS 4 pg/mL (3.0-78.0)
== END 2021-07-16 23:59 | disposition home or self-care (01) ==
LOC: LAB 10:45
PROVIDERS: PCP Family Medicine; Referring Provider Nurse Practitioner Family; Visit Provider Nurse Practitioner Family
DX: R07.9 Chest pain, unspecified (principal); I31.9 Disease of pericardium, unspecified; R06.00 Dyspnea, unspecified
CPT/HCPCS: 36415; 80048; 82150; 83690; 83880; 84484; 85025; 86141

== ENCOUNTER 2022-02-27 06:08 | Day surgery (SDC) | payer MEDICARE, SELFPAY ==
[2022-02-27] VITALS (7 sets, daily range): BP systolic 90–120; BP diastolic 55–67; PULSE 50–58; RESP 14–16; TEMP 36.4–36.8; O2SAT 93–99; BMI 24.4
[2022-02-27] MEDS: Lactated Ringers 1,000 ML 15 ML IV (06:30)
--- NOTE | 2022-02-27 06:34 | PCM.HP.BLA ---
History and Physical Date of Admission: 02/27/22 PARVEZ ROGERS, is a 66 M who presents to the office today for Initial consult. Parvez established with this clinic 12.19.21 with referral from PCP. Epigastric discomfort is an issue with cardiac workup being unremarkable. Patient believes discomfort to be cardiac related with PCP education that it may be GI related. Talamantes?s esophagus diagnosed many years prior with possible hiatal hernia. He is taking protonix 40mg QD and this is managing any reflux issues. Burning sensation in his stomach, feels it may be triggered by diet. PMH asthma; carotid artery occlusion, recurrent DVT, hyperlipidemia, pericarditis, nonischemic cardiomyopathy, HTN established with [facility] s/p heart catheterization. CTA 07.31.21 at [place] without abdominal aneurysm concern. Noted diverticulosis. EGD 11.12.18 with gastroenterology specialists in [facility] salmon colored mucosa suggestive of short-segment Talamantes?s esophagus; erythema of stomach indicative of gastritis. Quality Reporting Tobacco Screening ([facility] 138) Smoking Status: Never smoker Assessment and Plan Assessment and Plan (1) Talamantes's esophagus: ?Status:?Acute ?Plan: Short segment Talamantes's esophagus with history of gastroesophageal reflux disease.? He is on Protonix therapy and doing well.? We will perform an upper endoscopy to evaluate of his upper GI tract for any worsening Talamantes's disease of the esophagus or dysplasia of the esophagus.? He does not drink or smoke which increases risk of developing worsening disease. (2) Encounter for screening colonoscopy: ?Status:?Acute ?Plan: His bowel movements have been normal except for an occasion where he does get some lower GI bleeding that is thought to be secondary to hemorrhoid disease.? He will undergo screening colonoscopy because its been more than 10 years since his last colonoscopy.? He was explained alternatives, risk, benefits include not withstanding bleeding, infection, sepsis, perforation, need for emergent or .? He will have in a SA of 3. I have re-examined the patient. There are no clinical changes since date of exam.
--- NOTE | 2022-02-27 07:15 | EGD_PTH ---
PATIENT: PARVEZ ROGERS LOC: EN U#:[id number] AGE/SX: 66/M ROOM: RE02/27/[address]: Dr. Reynaldo Jj DO : 1955 BED: DIS: 02/27/2022 SPEC #: [id number] RECD: 02/27/22 11:01 STATUS: SWETHA DAWSON #: [id number] BAL: 02/27/22 07:[address]: Reynaldo Jj DEPT: SURGICAL PATHOLOGY RECD BY: Kassandra Stanley ENTERED: 02/27/22 11:39 SP TYPE: EGD BIOPSY OT DR: Dr. Jordan Zepeda MD Tissues: A - Esophagus, NOS B - Ascending colon C - Sigmoid colon biopsy Procedures: Special Stain Group II Surgery Specimen Level IV Alcian Blue/PAS (control) HEADER OPERATION: Colonoscopy, EGD ([facility] [place]) with biopsies PRE-OP DIAGNOSIS: Talamantes?s esophagus, screening TISSUE SUBMITTED: A - Distal esophagus biopsy, B - Ascending colon polyp biopsy, C - Sigmoid polyp biopsy MICROSCOPIC DIAGNOSIS A. Distal esophagus, biopsy: Gastroesophageal junctional mucosa with mild chronic inflammation. No evidence of goblet cell metaplasia. See comment. B. Ascending colon polyp, biopsy: Tubular adenoma. C. Sigmoid colon polyp, biopsy: Tubular adenoma. AM:federico 02/28/2022 COMMENT A. Alcian blue/PAS stain with matched control supports the above diagnosis. MICROSCOPIC DESCRIPTION Slides are reviewed. GROSS DESCRIPTION A - Received in fixative is one container labeled with the patient's name and designated distal esophagus. The specimen consists of multiple irregular fragments of light rain soft tissue that in aggregate measure 0.7 x 0.5 x 0.1 cm. The specimen is totally submitted in one cassette. B - Received in fixative is one container labeled with the patient's name and designated ascending colon polyp. The specimen consists of multiple irregular fragments of light rain soft tissue that in aggregate measure 0.6 x 0.6 x 0.1 cm. The specimen is totally submitted in one cassette. C - Received in fixative is one container labeled with the patient's name and designated sigmoid polyp. The specimen consists of two irregular fragments of light rain soft tissue that in aggregate measure 0.7 x 0.5 x 0.1 cm. The specimen is totally submitted in one cassette. / AM:federico 02/27/2022 TC:3 CPT: 94370 x3, 05496
--- NOTE | 2022-02-27 07:47 | OP.EGD_ITS ---
Patient Name: Emil Troncoso Procedure Date: 02/27/2022 7:02 AM Date of : 1955 Age: 66 Procedure: Upper GI endoscopy Indications: Heartburn, Suspected esophageal reflux Providers: Reynaldo Jj DO Medicines: Propofol per Anesthesia Patient Profile: This is a 66 year old male. Refer to note in patient chart for documentation of history and physical. Patient has symptoms of chronic heartburn. Complications: No immediate complications. Procedure: Pre-Anesthesia Assessment: - Prior to the procedure, a History and Physical was performed, and patient medications and allergies were reviewed. The risks and benefits of the procedure and the sedation options and risks were discussed with the patient. All questions were answered and informed consent was obtained. Patient identification and proposed procedure were verified by the physician in the pre-procedure area. Mental Status Examination: alert and oriented. Airway Examination: normal oropharyngeal airway and neck mobility. Respiratory Examination: clear to auscultation. CV Examination: normal. Prophylactic Antibiotics: The patient does not require prophylactic antibiotics. Prior Anticoagulants: The patient has taken no previous anticoagulant or antiplatelet agents. ASA Grade Assessment: II - A patient with mild systemic disease. After reviewing the risks and benefits, the patient was deemed in satisfactory condition to undergo the procedure. The anesthesia plan was to use monitored anesthesia care (MAC). Immediately prior to administration of medications, the patient was re-assessed for adequacy to receive sedatives. The heart rate, respiratory rate, oxygen saturations, blood pressure, adequacy of pulmonary ventilation, and response to care were monitored throughout the procedure. The physical status of the patient was re-assessed after the procedure. After obtaining informed consent, the endoscope was passed under direct vision. Throughout the procedure, the patient's blood pressure, pulse, and oxygen saturations were monitored continuously. The Colonoscope was introduced through the mouth, and advanced to the second part of duodenum. The upper GI endoscopy was accomplished without difficulty. The patient tolerated the procedure well. Moderate Sedation: Moderate (conscious) sedation was personally administered by an anesthesia professional. The following parameters were monitored: oxygen saturation, heart rate, blood pressure, respiratory rate, EKG, adequacy of pulmonary ventilation, and response to care. Scope In: 7:14:28 AM Scope Out: 7:18:24 AM Total Procedure Duration Time 0 hours 3 minutes 56 seconds Findings: The Z-line was irregular and was found 39 cm from the incisors. Biopsies were taken with a cold forceps for histology. Verification of patient identification for the specimen was done. Estimated blood loss was minimal. A medium-sized hiatal hernia was present. No gross lesions were noted in the entire examined stomach. No gross lesions were noted in the first portion of the duodenum. Impression: - Z-line irregular, 39 cm from the incisors. Biopsied. - Medium-sized hiatal hernia. - No gross lesions in the stomach. - No gross lesions in the first portion of the duodenum. Recommendation: - Discharge patient to home. - Resume previous diet. - Continue present medications. - Await pathology results. Procedure Code(s): --- Professional --- 98132, Esophagogastroduodenoscopy, flexible, transoral; with biopsy, single or multiple CPT copyright 2017 [employer]. All rights reserved. The codes documented in this report are preliminary and upon hims coder review may be revised to meet current compliance requirements. Reynaldo Jj DO 02/27/2022 7:46:22 AM This report has been signed electronically. Number of Addenda: 0 Note Initiated On: 02/27/2022 7:02 AM
--- NOTE | 2022-02-27 07:47 | OP.CCLET_ITS ---
02/27/2022 Jordan Zepeda Re : Upper GI endoscopy procedure for Emil Troncoso Dear [place] This procedure was performed on February. My impressions and recommendations are as follows: Impressions : - Z-line irregular, 39 cm from the incisors. Biopsied. - Medium-sized hiatal hernia. - No gross lesions in the stomach. - No gross lesions in the first portion of the duodenum. Recommendations : - Discharge patient to home. - Resume previous diet. - Continue present medications. - Await pathology results. My findings are described in the full procedure note, which is enclosed. If I can be of further assistance, please feel free to contact me at . Sincerely, Reynaldo Jj, 02/27/2022 7:46:22 AM This report has been signed electronically.
--- NOTE | 2022-02-27 07:53 | OP.COLON_ITS ---
Patient Name: Emil Troncoso Procedure Date: 02/27/2022 7:18 AM Date of : 1955 Age: 66 Procedure: Colonoscopy Indications: Screening for colorectal malignant neoplasm Providers: Reynaldo Jj DO Medicines: Monitored Anesthesia Care Patient Profile: This is a 66 year old male. Refer to note in patient chart for documentation of history and physical. Patient has symptoms of chronic heartburn. Last Colonoscopy: more than 10 years ago. Complications: No immediate complications. Procedure: Pre-Anesthesia Assessment: - Prior to the procedure, a History and Physical was performed, and patient medications and allergies were reviewed. The risks and benefits of the procedure and the sedation options and risks were discussed with the patient. All questions were answered and informed consent was obtained. Patient identification and proposed procedure were verified by the physician in the pre-procedure area. Mental Status Examination: alert and oriented. Airway Examination: normal oropharyngeal airway and neck mobility. Respiratory Examination: clear to auscultation. CV Examination: normal. Prophylactic Antibiotics: The patient does not require prophylactic antibiotics. Prior Anticoagulants: The patient has taken no previous anticoagulant or antiplatelet agents. ASA Grade Assessment: II - A patient with mild systemic disease. After reviewing the risks and benefits, the patient was deemed in satisfactory condition to undergo the procedure. The anesthesia plan was to use monitored anesthesia care (MAC). Immediately prior to administration of medications, the patient was re-assessed for adequacy to receive sedatives. The heart rate, respiratory rate, oxygen saturations, blood pressure, adequacy of pulmonary ventilation, and response to care were monitored throughout the procedure. The physical status of the patient was re-assessed after the procedure. After I obtained informed consent, the scope was passed under direct vision. Throughout the procedure, the patient's blood pressure, pulse, and oxygen saturations were monitored continuously. The Colonoscope was introduced through the anus and advanced to the terminal ileum. The colonoscopy was performed without difficulty. The patient tolerated the procedure well. The quality of the bowel preparation was adequate. Scope In: 7:21:23 AM Scope Withdrawal Time 0 hours 10 minutes 6 seconds Scope Out: 7:33:59 AM Total Procedure Duration Time 0 hours 12 minutes 36 seconds Findings: Hemorrhoids were found on perianal exam. Non-bleeding external hemorrhoids were found during retroflexion. The hemorrhoids were large and Grade III (internal hemorrhoids that prolapse but require manual reduction). Three sessile polyps were found in the sigmoid colon and ascending colon. The polyps were 1 to 2 mm in size. These polyps were removed with a cold biopsy forceps. Resection and retrieval were complete. Verification of patient identification for the specimen was done. Estimated blood loss was minimal. Multiple small and large-mouthed diverticula were found in the recto-sigmoid colon, sigmoid colon, descending colon and splenic flexure. There was no evidence of diverticular bleeding. Impression: - Hemorrhoids found on perianal exam. - Non-bleeding external hemorrhoids. - Three 1 to 2 mm polyps in the sigmoid colon and in the ascending colon, removed with a cold biopsy forceps. Resected and retrieved. - Severe diverticulosis in the recto-sigmoid colon, in the sigmoid colon, in the descending colon and at the splenic flexure. There was no evidence of diverticular bleeding. Recommendation: - Discharge patient to home. - Resume previous diet. - Continue present medications. - Await pathology results. - Repeat colonoscopy in 5 years for surveillance. Procedure Code(s): --- Professional --- 09747, Colonoscopy, flexible; with biopsy, single or multiple CPT copyright 2017 [employer]. All rights reserved. The codes documented in this report are preliminary and upon enthone solder stripper review may be revised to meet current compliance requirements. Reynaldo Jj DO 02/27/2022 7:52:32 AM This report has been signed electronically. Number of Addenda: 0 Note Initiated On: 02/27/2022 7:18 AM
--- NOTE | 2022-02-27 07:53 | OP.CCLET_ITS ---
02/27/2022 Jordan Zepeda Re : Colonoscopy procedure for Emil Troncoso Dear Duaen This procedure was performed on February. My impressions and recommendations are as follows: Impressions : - Hemorrhoids found on perianal exam. - Non-bleeding external hemorrhoids. - Three 1 to 2 mm polyps in the sigmoid colon and in the ascending colon, removed with a cold biopsy forceps. Resected and retrieved. - Severe diverticulosis in the recto-sigmoid colon, in the sigmoid colon, in the descending colon and at the splenic flexure. There was no evidence of diverticular bleeding. Recommendations : - Discharge patient to home. - Resume previous diet. - Continue present medications. - Await pathology results. - Repeat colonoscopy in 5 years for surveillance. My findings are described in the full procedure note, which is enclosed. If I can be of further assistance, please feel free to contact me at . Sincerely, Reynaldo Jj, 02/27/2022 7:52:32 AM This report has been signed electronically.
== END 2022-02-27 08:33 | disposition home or self-care (01) ==
LOC: EN 06:09 → AC 06:09
PROVIDERS: PCP Family Medicine; Referring Provider Family Medicine; Visit Provider Internal Medicine Gastroenterology
PROC: 0DJD8ZZ Inspection of Lower Intestinal Tract, Via Natural or Artificial Opening Endoscopic (ICD-10-PCS; CPT 45378; principal; 2022-02-27 07:10)
DX: Z12.11 Encounter for screening for malignant neoplasm of colon (principal); K57.30 Diverticulosis of large intestine without perforation or abscess without bleeding; K44.9 Diaphragmatic hernia without obstruction or gangrene; K64.4 Residual hemorrhoidal skin tags; K22.70 Barrett's esophagus without dysplasia; K64.2 Third degree hemorrhoids
CPT/HCPCS: 45380; 43239; 88305; 88313; J7120; J2405

== ENCOUNTER → 2022-05-08 | Outpatient (CLI) | payer MEDICARE, SELFPAY ==
--- NOTE | 2022-05-08 09:48 | STRESSREP_ITS ---
Stress Test Report Date: 05-08-2022 Procedure: Exercise tolerance test/imaging study Indications: Chest pain; CAD; cardiomyopathy; hyperlipidemia; hypertension Consent: Per the patient Procedure: The patient exercised on a [place] protocol for 9 minutes completing Stage III achieving a peak heart rate of 131 bpm (86% predicted maximal heart rate) with resting blood pressure of 132/88 mmHg and a peak blood pressure 160/84 mmHg and a peak MET capacity of 10 METs. The baseline ECG demonstrated normal sinus rhythm. The peak exercise ECG demonstrated somatic/motion artifact with no obvious ECG changes. There were no cardiac dysrhythmias pretest, during exercise, or recovery. The functional capacity was considered good. There was no complaint of chest discomfort during exercise or recovery. The examination was discontinued secondary to dyspnea. Impression: 1. Technically adequate (percent predicted maximal heart rate greater than 85%) exercise tolerance test 2. Peak exercise ECG with somatic/motion artifact with no obvious ECG changes 3. There were no cardiac dysrhythmias pretest, during exercise, or recovery 4. Nuclear images pending Myocardial perfusion imaging study: Technique: The patient was injected with 11.8 mCi of technetium 99m Cardiolite and subsequently rest SPECT Cardiolite nuclear imaging was obtained in the horizo ntal long, vertical long, and short axis views. The patient exercised on a [place] protocol for 9 minutes completing Stage III achieving a peak heart rate of 131 bpm (86% predicted maximal heart rate) with resting blood pressure of 132/88 mmHg and a peak blood pressure 160/84 mmHg and a peak MET capacity of 10 METs. The patient was injected with 33.5 mCi of technetium 99m Cardiolite and subsequently stress SPECT Cardiolite nuclear imaging was obtained in the horizontal long, vertical long, and short axis views. A gated Cardiolite study at peak stress was obtained. Interpretation: Rest and stress SPECT Cardiolite nuclear imaging status post realignment, normalization, and attenuation correction, demonstrates the appearance of body motion during image acquisition and an area of diminished myocardial fusion/tracer uptake in the apical segments which appears to be somewhat more prominent following stress as opposed to rest. There is end systolic thickening and brightening. The gated Cardiolite study demonstrates myocardial thickening and inward wall motion. The reported LVEF is 68%. Impression: 1. Rest and stress SPECT Cardiolite nuclear imaging demonstrate myocardial perfusion changes in the apical areas at rest and stress but appearing somewhat more prominent following stress potentially compatible with an element of physiologic apical thinning and shifting soft tissue attenuation/artifact, however, an element of stress-induced myocardial ischemia cannot necessarily be excluded. 2. The gated Cardiolite study reports an LVEF of 68%. This note was generated with [employer] software. It may contain incorrect words, spelling, and punctuation that were not noted in checking the note before signing.
== END | disposition home or self-care (01) ==
LOC: CVS 06:28
PROVIDERS: PCP Family Medicine; Visit Provider Internal Medicine Cardiovascular Disease
DX: I10 Essential (primary) hypertension (principal); E78.5 Hyperlipidemia, unspecified; R06.00 Dyspnea, unspecified; I25.10 Atherosclerotic heart disease of native coronary artery without angina pectoris
CPT/HCPCS: 78452; 93017; A9500; A4216

== ENCOUNTER 2022-06-03 08:29 | Day surgery (SDC) | payer MEDICARE, SELFPAY ==
--- NOTE | 2022-05-27 09:45 | RAD_ITS ---
STUDY: X-RAY CHEST REASON FOR EXAM: Male, 66 years old. Chest Pain TECHNIQUE: XR Chest 2 Views COMPARISON: 02.24.20 FINDINGS: Normal visualized aortic arch and descending thoracic aorta. There are diffuse degenerative changes of the visualized thoracic spine. There is degenerative osteoarthritis of the bilateral shoulders. There is no demonstrated pleural abnormality. Normal size heart. Normal mediastinum and slava. Normal visualized pulmonary arteries. There is no demonstrated abnormality of the visualized soft tissue structures of the upper abdomen. RAD/Chest PA and Lateral IMPRESSION: There are no acute findings. Electronically Signed: Anatoly Soto MD at 17:50 EST ,
[2022-05-27 10:24] LABS: Hematocrit 45.7 % (40-54); Hemoglobin 15.1 g/dL (13.0-16.5); Mean Corpuscular Hgb 30.4 pg (27.0-32.0); Mean Platelet Vol. 9.5 fl (6.2-12.0); Platelet Count 296 K/mm3 (150-450); RBC Distribution Width CV 13.2 % (11.6-14.6); RBC Distribution Width SD 44.7 fl (35.1-43.9); Red Blood Count 4.97 M/mm3 (4.6-6.2); White Blood Count 7.7 K/mm3 (4.4-11.0)
[2022-05-27 10:29] LABS: International Normalized Ratio 1.2; Prothrombin Time (Protime)PT. 14.6 SECONDS (11.7-14.9)
[2022-05-27 10:30] LABS: Partial Thromboplast Time 32.1 Seconds (24.1-36.2)
[2022-05-27 11:15] LABS: Anion Gap 3 (5-15); BUN 19 mg/dL (7-18); BUN/Creat Ratio 24.1 RATIO (10-20); Calcium,Total 9.7 mg/dL (8.5-10.1); Chloride 105 mmol/L (98-107); Creatinine, Serum 0.79 mg/dL (0.70-1.30); EST Glomerular Filtration Rate 104 mL/min (>60); Est Glom Filt Rate - Afr Amer 125 mL/min (>60); Glucose 122 mg/dL (74-106); Potassium 4.2 mmol/L (3.5-5.1); Sodium Level 137 mmol/L (136-145)
[2022-06-02 08:19] VITALS: BMI 25.4
--- NOTE | 2022-06-02 15:42 | HP.PCM_ITS ---
History and Physical Date of Admission: 06/03/22 [facility] [address] [place] [address] MR#: [id number] Acct: [id number] Name:PARVEZ PACHECO Rep #: [id number] : 1955 Provider: Dr. Ciro Torres MD Age/Sex:? 66/M ?[place] [facility] [place] Status: Signed HPI [facility] History of Present Illness Details: This is a 66-year-old gentleman with a history of CAD, a non-CAD related cardiomyopathy, hyperlipidemia, and hypertension who has been followed by my colleague Dr. Aldridge who now presents for outpatient cardiovascular follow-up based upon concerns of chest discomfort.? He states that he has had intermittent concerns of chest discomfort both at rest and with exertion that radiates across his chest.? He notes he had had an episode that radiated into his left shoulder and down his left upper extremity.? He has had shortness of breath and dyspnea which she is attributed to underlying pulmonary disease.? He does not describe ongoing nausea or emesis or diaphoresis.? There is been 2 episodes he recalls of a brief rapid heart rate.? He believes these are commensurate with his history of tachycardia.? He does not recall any episodes of near syncope or syncope. He states he has his lipid labs followed by his PCP.? He was in visiting his PCP and he was noted to have a cardiac murmur.? This led to an echocardiogram performed at [facility] on 04-17-2022. According to their report the left ventricle was normal with an LVEF of 55 to 60%.? The mitral valve had mild MR.? The aortic valve was sclerotic with mild AI.? The tricuspid valve was reported as having mild TR. He has undergone previous noninvasive and invasive cardiovascular studies in the past.? Some of his studies are noted below.? It is noted over time that his LV systolic function/LVEF, which was reported at 25% in 2005, had normalized. He had an ECG in the office today.? He was noted to be in sinus rhythm with an RSR prime pattern in V1.? He had no acute electrocardiographic changes. Intake Vital Signs ? 02/27/2206:40 04/25/2214:19 04/25/2214:21 Height 5 ft 9 in 5 ft 9 in 5 ft 9 in Weight: ? ? 172 lb 2 oz BMI ? ? 25.4 BP ? ? 132/80 H Blood Pressure Location ? ? Lt brachial Position ? ? Sitting Respiration ? ? 18 Pulse ? ? 80 Pulse Source ? ? Auscultation Intake Visit Reasons:?OVERDUE FOR OV [employer] Required: No Accompanied by: Self Allergies bee venom protein (honey bee) Allergy (Verified 04/25/22 14:22) Anaphylaxiscefadroxil hydrate [From Duricef] Allergy (Verified 04/25/22 14:22) Rashniacin [From Niaspan Extended-Release] Allergy (Verified 04/25/22 14:22) Rashazatadine Adverse Reaction (Verified 04/25/22 14:22) Otherpseudoephedrine Adverse Reaction (Verified 04/25/22 14:22) Other Medications aspirin 81 mg chewable tablet 81 mg PO QHS heart health 08/08/13 [History Confirmed 04/25/22] pantoprazole 40 mg tablet,delayed release 40 mg PO DAILY reflux 08/08/13 [History Confirmed 04/25/22] albuterol sulfate 90 mcg/actuation aerosol inhaler 2 puff inhalation Q4H PRN PRN Sob &/Or Wheezing 04/01/16 [History Confirmed 04/25/22] rosuvastatin 5 mg tablet 5 mg PO QHS cholesterol 01/05/17 [History Confirmed 04/25/22] apixaban 5 mg tablet (Eliquis) 5 mg PO BID blood thinner 10/01/18 [History Confirmed 04/25/22] losartan 50 mg tablet 50 mg PO DAILY blood pressure 10/01/18 [History Confirmed 04/25/22] nitroglycerin 0.4 mg sublingual tablet 0.4 mg sublingual Q5-15M chest pain 10/26/18 [History Confirmed 04/25/22] verapamil 180 mg 24 hr capsule,extended release 180 mg PO QHS blood pressure 10/26/18 [History Confirmed 04/25/22] multivitamin with minerals 1 tab PO DAILY supplement 05/06/19 [History Confirmed 04/25/22] epinephrine 0.3 mg/0.3 mL injection, auto-injector 0.3 mg IM ONCE PRN ALLERGY 11/01/19 [History Confirmed 04/25/22] meclizine 25 mg tablet 25 mg PO TID PRN PRN dizziness, vertigo #30 tabs 02/24/20 [Rx Confirmed 04/25/22] fluticasone furoate 100 mcg/actuation blister powder for inhalation 1 inh inhalation DAILY 07/16/21 [History Confirmed 04/25/22] isosorbide dinitrate 30 mg tablet 30 mg PO DAILY 10/18/21 [History Confirmed ] tizanidine 4 mg capsule 4 mg PO Q8H PRN MUSCLE RELAXANT 10/18/21 [History Confirmed 04/25/22] PFSH Medical History? Abdominal pain Abrasion Anxiety Arthritis Asthma Atherosclerotic heart disease of [place] coronary artery without angina pectoris Talamantes's esophagus Cancer Cardiology follow-up encounter Carotid artery occlusion without infarction Chest pain Chronic cough CPAP (continuous positive airway pressure) dependence Depression Diverticulitis Easy bruising Elevated troponin I level (2005) Essential hypertension Excessive bleeding Facial paresthesia (07/2018) Fatty liver Gastric reflux Gastroesophageal reflux disease GI bleed History of echocardiogram History of edema History of GI bleed History of heart attack History of stress test Hyperlipidemia Hypertension Insomnia Leg cramps Migraines Myalgia Non-smoker Nonischemic cardiomyopathy Nonobstructive atherosclerosis of coronary artery Obstructive sleep apnea Osteoarthritis Paroxysmal supraventricular tachycardia Pericarditis Recurrent deep vein thrombosis (DVT) Restless legs Shortness of breath on exertion Sleep apnea Squamous cell carcinoma Syncope Type 2 diabetes mellitus without complication Vertigo Vertigo Wears glasses Wears partial dentures Surgical History? History of appendectomy History of inguinal hernia repair History of left heart catheterization (01/09/20) History of left knee surgery Family History? Brother Cancer ?? ? prostate DiabetesFather Cancer ?? ? stomach CAD (coronary artery disease) Heart disease Hypertension Hearing lossMother CAD (coronary artery disease) Diabetes Heart disease Hypertension CVA (cerebral vascular accident) Social History? Smoking Status:? Never smoker alcohol intake:? never substance use type:? does not use caffeine:? Yes Type: coffee Number of servings: 3 ROS Const Const: Positive for fatigue (increased; tires easier); Negative for weakness, body ache, fever(s), headache(s), chills, frequent falls, night sweats, daytime sleepiness, difficulty sleeping, excessive sweating, weight gain, weight loss, increased appetite, poor appetite, anorexia or other Eyes Eyes: Negative for blurry vision or double vision ENT ENT: Positive for balance problems (occasional); Negative for headache(s) or dizziness Cardio Chest Pain: Yes (occasional) Character: dull Onset: at rest, exercise and with meals Location: mid sternal (radiates out Rt/Lt, can radiate into left shoulder) Duration: hours Relieving: other (has used SL nitro has helped at times) Palpitations: No Edema: None Muscle aches with walking: Bilateral (calf muscles) Resp Respiratory: Positive for SOB with activity (occasional increased) and wheezing (occasional); Negative for SOB at rest, SOB orthopnea\SOB lying down, Cough, Coughing up blood/hemoptysis, chest congestion, pain on inspiration, snoring, stridor, crackles, paroxysmal nocturnal dyspnea or other Musc Musc: Positive for balance problems (occasional); Negative for muscle aches/ myalgia, muscle weakness or joint pain Neuro Neuro: Negative for dizziness, lightheadedness, near syncope, syncope, orthostatic symptoms, frequent falls, headache(s), weakness, confusion, memory loss, restless legs, blurry vision, double vision, vertigo, seizures, lack of coordination or other Endo Endo: Positive for fatigue (increased; tires easier); Negative for excessive sweating Cardiology Exam Const Appearance: cooperative, healthy appearing, comfortable, no acute distress, well developed and well groomed Nutritional Appearance: well nourished and overweight Orientation: alert, awake and oriented x3 Head Head: normal to inspection, normocephalic and atraumatic Ears: hearing grossly normal bilaterally Nose: external nose normal Face and Sinus: face symmetric Eyes Eyelids: eyelids normal Conjunctivae: conjunctivae normal Pupils: PERRL EOM: EOM intact bilaterally Neck Neck: normal visual inspection, full ROM and no JVD Carotids: normal carotid upstroke Chest Chest inspection: normal inspection of the chest, symmetric chest movement and normal respiratory effort; Negative cough Auscultation: Bilateral: Clear to Auscultation Cardio Palpation: normal PMI Rate: regular rate Rhythm: regular rhythm Heart sounds: S1 normal and S2 normal; Negative rub or gallop Murmur: Grade 3/6, harsh, mid systolic, LLSB, apex, LVOT, sternal notch and radiates to carotids GI GI: normal to inspection, soft and bowel sounds present Neuro General: patient alert, patient awake, patient oriented x3 and moves all extremities Skin Skin: no rashes or lesions noted Extremities Pulses: Normal: Right Posterior Tibial Pulse, Left Posterior Tibial Pulse, Right Radial Pulse and Left Radial Pulse Lower Extremity Edema: None: Bilateral Psych Psychological: normal affect Supplemental Info Supplemental Information Echocardiogram from 05/06/2019: Interpretation Summary The estimated ejection fraction is 75 %. Normal diastology for age. Trivial tricuspid valve insufficiency. Right ventricular systolic pressure estimated to be 30 mmHg. Mild aortic stenosis. Trivial aortic valve insufficiency. Compared to echo report dated 08/30/2018, no appreciable changes noted. The study was technically difficult. Contrast injection was performed. Echocardiogram from 07/17/2020: Interpretation Summary Normal LV size. Left ventricular systolic function is normal. The estimated ejection fraction is 70 %. Stage 1 diastolic dysfunction. Mild (1+) aortic valve insufficiency. Contrast injection was performed. Compared to prior study, there is no significant change. Stress Test Report: 08-25-2018 Exercise myocardial perfusion stress test. 63-year-old male with a history of chest pain. Medications: Eliquis, verapamil, Protonix, losartan. Stress protocol: Resting EKG demonstrates sinus bradycardia with a rate of 56 bpm normal intervals are noted resting blood pressure is 128/80 mmHg.? The patient exercised according to regular Clyde protocol for total duration of 7 minutes and 15 seconds.? The maximum heart rate was 144 bpm which was 92% of maximum predicted heart rate the maximum workload was 8.9 metabolic equivalents.? Patient maintained sinus rhythm throughout the recording.? At rest there were no ST or T wave changes noted suggest ischemia at peak exercise upsloping ST changes were noted to suggest ischemia.? The resting blood pressures 128/80 with a peak blood pressure 160/84 mmHg. Myocardial perfusion protocol. 11.0 mCi of technetium 99m sestamibi was injected at rest.? The patient exercised according to regular Clyde protocol.? At peak exercise 33.2 mCi of technetium 99m sestamibi was injected stress images were obtained stress and rest images were reconstructed and compared in the short axis vertical long horizontal long axis.? Gated images were also obtained per Perfusion SPECT analysis: Review of the stress images demonstrate normal uptake of tracer noted in all areas of the myocardium.? The resting images similarly demonstrate normal uptake of tracer noted in all areas of the myocardium.? No areas of reversibility are noted suggest ischemia no previous infarct is noted. Gated SPECT analysis: The gated ejection fraction is 72%. Conclusion: Normal exercise myocardial perfusion stress test at a moderate workload. Preserved ejection fraction. Heart catheterization 01/09/2020: CONCLUSIONS Moderate proximal RCA non obstructive RECOMMENDATIONS Medical therapy CORONARY ANGIOGRAPHY DOMINANCE:? Right Dominant LEFT HEART ASSESSMENT Left Ventricular Ejection Fraction: by LV Gram 60 % Normal LV wall motion Normal Left Ventricular systolic function LEFT MAIN: Non-obstructive LEFT ANTERIOR DESCENDING ARTERY: Mild luminal irregularities CIRCUMFLEX ARTERY: Mild luminal irregularities RIGHT CORONARY ARTERY: PROX RCA: 60 % Stenosis Labs: ?? ? LDL Cholesterol 115 mg/dL (0-130) ?? ? HDL Cholesterol 54 mg/dL (40-) ?? ? Triglycerides 80 mg/dL (-199) ?? ? VLDL Cholesterol 16 mg/dL (5-40) Diagnostics: ?? ? Electrocardiogram ? Echocardiogram ? Stress Test NM ? Stress Test ? Cardiac Catheterization ? Chest X-Ray ? Venous Doppler Study ? Pulmonary: ?? ? No Data to Display Assessment and Plan Assessment and Plan (1) Atherosclerotic heart disease of [place] coronary artery without angina pectoris: ?Status:?Acute ?Comment: Nonobstructive per cardiac cath 01/09/2020 ?Plan: At the present time he will continue risk factor modification and medical management. Based upon his symptoms and his history he was asked undergo reevaluation with an exercise tolerance test/imaging study. Depending upon the findings he may or may not require reevaluation in the cardiac catheterization laboratory. 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 It appears over time his LV wall motion and systolic function and LVEF improved/normalized. At the present time he will continue his current medical management. (3) Hyperlipidemia: ?Status:?Chronic ?Qualifiers: ?Hyperlipidemia type:?unspecified? Qualified Code(s):?E78.5 - Hyperlipidemia, unspecified ?Plan: A copy of his lipid labs will be appreciated for continuity of care (4) Essential hypertension: ?Status:?Chronic ?Plan: He will continue antihypertensive therapy with adjustment as needed. (5) Chest pain in adult: ?Status:?Acute ?Plan: He does have chest discomfort. Again he describes symptoms that are concerning for angina pectoris.? At same time he does not have all of the classic symptoms of angina pectoris.? Thus it was felt reasonable that he undergo noninvasive valuation as described with subsequent invasive evaluation as deemed appropriate. ? ? ? Orders: Orders 12 Lead EKG performed by [facility] Today I25.1 0 - Atherosclerotic heart disease of [place] coronary artery without angina pectoris ? Nuclear Stress Test - [facility] Today E78.5 - Hyperlipidemia, unspecified, I10 - Essential (primary) hypertension, I25.10 - Atherosclerotic heart disease of [place] coronary artery without angina pectoris, R07.9 - Chest pain, unspecified ? Plan Details Additional Comments: Thank you for allowing me to participate in the care of your patient.? Please don't hesitate to call if any issues arise. This note was generated using a voice recognition system and there may be incorrect words, spelling or punctuation that were not noted when reviewing the office note prior to saving. Follow Up: ? ? 6 Months (PFM ) COVID (Procedure Consent) Procedure Criteria Procedure Criteria: Yes Elective The surgeon/proceduralist and patient have discussed in detail the risk of exp osure to and/or potential harm posed by the COVID-19 virus with having a surgery/procedure at this time versus the risk of? delaying the surgery/procedure. It is not possible to know either the risk of delaying the surgery or procedure or chance of getting an infection with perfect accuracy, but a joint decision was made between the patient and the surgeon/proceduralist ?to proceed at this time with the scheduled surgery/procedure as indicated on the consent form. Coding Level of Care Code Off vis,est,level 4 Diagnoses Atherosclerotic heart disease of [place] coronary artery without angina pectoris? I25.10 Cardiomyopathy? I42.9 Hyperlipidemia? E78.5 ? ? ? Hyperlipidemia type: unspecified Essential hypertension? I10 Chest pain in adult? R07.9 Coding Level of Care Code Off vis,est,level 4 Diagnoses Atherosclerotic heart disease of [place] coronary artery without angina pectoris? I25.10 Cardiomyopathy? I42.9 Hyperlipidemia? E78.5 ? ? ? Hyperlipidemia type: unspecified Essential hypertension? I10 Chest pain in adult? R07.9 04/25/22 1532 <Electronically signed by Ciro Torres MD> Date Ciro Torres MD Cosigner Signature: Date (if applicable) ? CC:? Dr. Jordan Zepeda MD ~ Assessment & Plan Addt'l Comments Addendum: Date: 06-03-2022 I have examined the patient the following changes are noted: The patient underwent further evaluation with an exercise tolerance test/nuclear imaging study. This was performed on 05-08-2022. The results are noted below. Stress Test Report Date: 05-08-2022 Procedure: Exercise tolerance test/imaging study Indications: Chest pain; CAD; cardiomyopathy; hyperlipidemia; hypertension Consent: Per the patient Procedure: The patient exercised on a Clyde protocol for 9 minutes completing Stage III achieving a peak heart rate of 131 bpm (86% predicted maximal heart rate) with resting blood pressure of 132/88 mmHg and a peak blood pressure 160/84 mmHg and a peak MET capacity of 10 METs. The baseline ECG demonstrated normal sinus rhythm.? The peak exercise ECG demonstrated somatic/motion artifact with no obvious ECG changes. There were no cardiac dysrhythmias pretest, during exercise, or recovery.? The functional capacity was considered good. There was no complaint of chest discomfort during exercise or recovery. The examination was discontinued secondary to dyspnea. Impression: 1.? Technically adequate (percent predicted maximal heart rate greater than 85%) exercise tolerance test 2.? Peak exercise ECG with somatic/motion artifact with no obvious ECG changes 3.? There were no cardiac dysrhythmias pretest, during exercise, or recovery 4.? Nuclear images pending Myocardial perfusion imaging study: Technique: The patient was injected with 11.8 mCi of technetium 99m Cardiolite and subsequently rest SPECT Cardiolite nuclear imaging was obtained in the horizontal long, vertical long, and short axis views. The patient exercised on a Clyde protocol for 9 minutes completing Stage III achieving a peak heart rate of 131 bpm (86% predicted maximal heart rate) with resting blood pressure of 132/88 mmHg and a peak blood pressure 160/84 mmHg and a peak MET capacity of 10 METs. The patient was injected with 33.5 mCi of technetium 99m Cardiolite and subsequently stress SPECT Cardiolite nuclear imaging was obtained in the horizontal long, vertical long, and short axis views.? A gated Cardiolite study at peak stress was obtained. Interpretation: Rest and stress SPECT Cardiolite nuclear imaging status post realignment, normalization, and attenuation correction, demonstrates the appearance of body motion during image acquisition and an area of diminished myocardial fusion/tracer uptake in the apical segments which appears to be somewhat more prominent following stress as opposed to rest.? There is end systolic thickening and brightening.? The gated Cardiolite study demonstrates myocardial thickening and inward wall motion.? The reported LVEF is 68%. Impression: 1.? Rest and stress SPECT Cardiolite nuclear imaging demonstrate myocardial perfusion changes in the apical areas at rest and stress but appearing somewhat more prominent following stress potentially compatible with an element of physiologic apical thinning and shifting soft tissue attenuation/artifact, however, an element of stress-induced myocardial ischemia cannot necessarily be excluded. 2.? The gated Cardiolite study reports an LVEF of 68%. Based upon the patient's evaluation and objective findings a recommendation was made to proceed with further evaluation with diagnostic cardiac catheterization. The procedure and risk were discussed with the patient. He was agreeable to this approach. This note was generated using a voice recognition system and there may be incorrect words, spelling or punctuation that were not noted when reviewing the office note prior to saving.
--- NOTE | 2022-06-03 11:52 | CL.D_ITS ---
Patient Name: PARVEZ ROGERS Study Date: 06/03/2022 Performing: Ciro Torres MD Ht: 69 inches 175.26 cm : 1955 Wt: 172 lbs 78.02 kg Age: 66 Gender: male BSA: 1.94 PROCEDURE(S) PERFORMED [id number]-([id number])[facility] CLINICAL PROFILE AND INDICATIONS Indications: Worsening Angina, Suspected CAD Heart Failure: None Stress/Imaging Date: 04/10/2920Stress Test with SPECT MPI: Positive Intermediate Risk Angina Classification Anginal Classification w/in 2 Weeks: CCS III CAD Presentations: Other: worsening angina CONCLUSIONS Elevated Left Ventricular End Diastolic Pressure Tribal Multivessel CAD RECOMMENDATIONS Risk factor modification Medical therapy DESCRIPTION OF PROCEDURE The patient arrived to the procedure lab. The risks and benefits of the procedure as well as a full description of our services here and current unavailability of surgical backup were fully explained to the patient and/or their significant other prior to the catheterization. The Timeout was completed, verifying the correct patient and procedure. The patient's procedural site was prepped and draped in the usual fashion. Local anesthetic was given subcutaneously to right radial region with Lidocaine 2%. Using a modified Seldinger technique, arterial access was obtained via the right radial artery, a 6Fr sheath was inserted. Right Coronary Artery selective angiography was then performed in multiple views using a 5 Fr. 4.0 Baldwin catheter. Left Coronary Artery selective angiography was performed in multiple views using a 5 Fr. JL4 catheter. Right Coronary Artery selective angiography was then performed in multiple views using a 5 Fr. JR 4 catheter.The arterial sheath was pulled and a TR Band was applied for hemostasis 11ml air CORONARY ANGIOGRAPHY DOMINANCE: Right Dominant LEFT HEART ASSESSMENT Left Ventricular Ejection Fraction: Not assessed Elevated Left Ventricular End Diastolic Pressure LVEDP: 20 mmHg LEFT MAIN: Angiographically normal LEFT ANTERIOR DESCENDING ARTERY: PROX LAD: Mild luminal irregularities MID LAD: Mild luminal irregularities CIRCUMFLEX ARTERY: PROX CIRC: Mild luminal irregularities MID CIRC: Mild luminal irregularities less than 30% RIGHT CORONARY ARTERY: Mild luminal irregularities PROX RCA: 50 % Stenosis RT PDA: Proximal - Mild luminal irregularities, Mid - Mild luminal irregularities COMPLICATIONS No Complications PROCEDURE MEDICATIONS Versed 1 mg IV Fentanyl 50 mcg IV Oxygen: 2 L/min via nasal cannula Heparin given IA 06/03/2022 11:03:52 Verapamil 2.5mg, Ntg 200mcgs, 2000 units of Heparin given IA 06/03/2022 11:03:52 SUMMARY OF HEMODYNAMIC DATA Time AIR REST ECG 08:59:22 AO 117/75 (97) SA 11:06:32 LV 159/-12, 21 11:07:12 LV 155/-12, 20 11:07:21 LVp 156/-15, 17 11:07:26 AOp 133/67 (92) 11:07:33 Signed By Ciro Torres MD On 06/03/2022 11:51:38 Ciro Torres MD
== END 2022-06-03 13:10 | disposition home or self-care (01) ==
PROVIDERS: PCP Family Medicine; Referring Provider Internal Medicine Cardiovascular Disease; Visit Provider Internal Medicine Cardiovascular Disease
DX: I25.119 Atherosclerotic heart disease of native coronary artery with unspecified angina pectoris (principal); I42.9 Cardiomyopathy, unspecified; I10 Essential (primary) hypertension; E78.5 Hyperlipidemia, unspecified; F41.9 Anxiety disorder, unspecified; J45.909 Unspecified asthma, uncomplicated; K22.70 Barrett's esophagus without dysplasia; I65.29 Occlusion and stenosis of unspecified carotid artery; F32.9 Major depressive disorder, single episode, unspecified; I25.2 Old myocardial infarction; G47.33 Obstructive sleep apnea (adult) (pediatric); G25.81 Restless legs syndrome; Z79.899 Other long term (current) drug therapy; Z79.82 Long term (current) use of aspirin
CPT/HCPCS: 36415; 71046; 80048; 85027; 85610; 85730; 93454; 99152; 99153; J7040; C1769; C1894; Q9967

== ENCOUNTER 2023-04-09 08:44 | Day surgery (SDC) | payer MEDICARE, SELFPAY ==
[2023-04-07 06:21] LABS: Hematocrit 43.5 % (40-54); Hemoglobin 14.2 g/dL (13.0-16.5); Mean Corp Hgb Conc 32.6 g/dL (32-36); Mean Corpuscular Hgb 30.5 pg (27.0-32.0); Mean Corpuscular Volume 93.5 fL (80-94); Mean Platelet Vol. 9.2 fl (6.2-12.0); Platelet Count 275 K/mm3 (150-450); RBC Distribution Width CV 13.2 % (11.6-14.6); RBC Distribution Width SD 44.9 fl (35.1-43.9); Red Blood Count 4.65 M/mm3 (4.6-6.2); White Blood Count 6.4 K/mm3 (4.4-11.0)
[2023-04-07 06:29] LABS: Partial Thromboplast Time 28.2 Seconds (24.1-36.2); Prothrombin Time (Protime)PT. 13.2 SECONDS (11.7-14.9)
[2023-04-07 06:58] LABS: AST(SGOT) 14 U/L (15-37); Alanine Aminotransfer ALT/SGPT 22 U/L (16-61); Albumin, Serum 3.7 g/dL (3.2-5.0); Alkaline Phosphatase 55 U/L (45-117); Anion Gap 1 (5-15); BUN 20 mg/dL (7-18); BUN/Creat Ratio 29.1 RATIO (10-20); Bilirubin, Direct 0.21 mg/dL (0.00-0.30); Calcium,Total 9.3 mg/dL (8.5-10.1); Chloride 107 mmol/L (98-107); Creatinine, Serum 0.69 mg/dL (0.70-1.30); EST Glomerular Filtration Rate 121 mL/min (>60); Est Glom Filt Rate - Afr Amer 147 mL/min (>60); Globulin 3.6 g/dL (2.2-4.2); Glucose 115 mg/dL (74-106); Potassium 4.3 mmol/L (3.5-5.1); Protein, Total 7.3 g/dL (6.4-8.2); Sodium Level 138 mmol/L (136-145)
[2023-04-09] VITALS (14 sets, daily range): BP systolic 75–122; BP diastolic 46–66; PULSE 43–60; RESP 12–18; TEMP 36.1–36.4; O2SAT 93–100; BMI 22.1
[2023-04-09] MEDS: Lactated Ringers 1,000 ML 15 ML IV ×2 (09:21→13:35)
--- NOTE | 2023-04-09 10:01 | HP.PCM_ITS ---
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 Is patient in pain?: No Allergies bee venom protein (honey bee) Allergy (Verified 03/26/23 09:43) Anaphylaxiscefadroxil hydrate [From Duricef] Allergy (Verified 03/26/23 09:43) Rashniacin [From Niaspan Extended-Release] Allergy (Verified 03/26/23 09:43) Rashazatadine Adverse Reaction (Verified 03/26/23 09:43) Otherpseudoephedrine Adverse Reaction (Verified 03/26/23 09:43) Other Medications aspirin 81 mg chewable tablet 81 mg PO QHS heart health 08/08/13 [History Conf irmed 03/26/23] pantoprazole 40 mg tablet,delayed release 40 mg PO DAILY reflux 08/08/13 [History Confirmed 03/26/23] albuterol sulfate 90 mcg/actuation aerosol inhaler 2 puff inhalation Q4H PRN PRN Sob &/Or Wheezing 04/01/16 [History Confirmed 03/26/23] apixaban 5 mg tablet (Eliquis) 5 mg PO BID blood thinner 10/01/18 [History Confirmed 03/26/23] losartan 50 mg tablet 50 mg PO DAILY blood pressure 10/01/18 [History Confirmed 03/26/23] nitroglycerin 0.4 mg sublingual tablet 0.4 mg sublingual Q5-15M chest pain 10/26/18 [History Confirmed 03/26/23] verapamil 180 mg 24 hr capsule,extended release 180 mg PO QHS blood pressure 10/26/18 [History Confirmed 03/26/23] multivitamin with minerals 1 tab PO DAILY supplement 05/06/19 [History Confirmed 03/26/23] epinephrine 0.3 mg/0.3 mL injection, auto-injector 0.3 mg IM ONCE PRN ALLERGY 11/01/19 [History Confirmed 03/26/23] meclizine 25 mg tablet 25 mg PO TID PRN PRN dizziness, vertigo #30 tabs 02/24/20 [Rx Confirmed 03/26/23] fluticasone furoate 100 mcg/actuation blister powder for inhalation 1 inh inhalation DAILY 07/16/21 [History Confirmed 03/26/23] tizanidine 4 mg capsule 4 mg PO Q8H PRN MUSCLE RELAXANT 10/18/21 [History Confirmed 03/26/23] rosuvastatin 10 mg tablet 10 mg PO QHS cholesterol #90 tabs 06/03/22 [Rx Confirmed 03/26/23] isosorbide dinitrate 30 mg tablet 30 mg PO DAILY PRN 10/23/22 [History Confirmed 03/26/23] PFS Medical History Abdominal pain Abnormal nuclear stress test Abrasion Anxiety Arthritis Asthma 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 Cancer Cardiology follow-up encounter Carotid artery occlusion without infarction Chest pain Chronic cough CPAP (continuous positive airway pressure) dependence Depression Diverticulitis Easy bruising Elevated troponin I level (2005) Essential hypertension Excessive bleeding Facial paresthesia (07/2018) Fatty liver Gastric reflux Gastroesophageal reflux disease GI bleed History of echocardiogram History of edema History of GI bleed History of heart attack History of stress test Hyperlipidemia Hypertension Insomnia Leg cramps Migraines Myalgia Non-smoker Nonischemic cardiomyopathy Nonobstructive atherosclerosis of coronary artery Obstructive sleep apnea Osteoarthritis Paroxysmal supraventricular tachycardia Pericarditis Recurrent deep vein thrombosis (DVT) Restless legs Shortness of breath on exertion Sleep apnea Squamous cell carcinoma Syncope Type 2 diabetes mellitus without complication Vertigo Vertigo Wears glasses Wears partial dentures Surgical History History of appendectomy History of inguinal hernia repair History of left heart catheterization (06/03/22) History of left knee surgery Family History Brother Cancer prostate DiabetesFather Cancer stomach CAD (coronary artery disease) Heart disease Hypertension Hearing lossMother CAD (coronary artery disease) Diabetes Heart disease Hypertension CVA (cerebral vascular accident) Social History Smoking Status: Never smoker alcohol intake: never substance use type: does not use caffeine: Yes Type: coffee Number of servings: 3 HPI HPI HPI: Patient is a 67-year-old male here with a right inguinal bulge. He says has been present for a long time. He has had a left inguinal hernia repair in the past. He reports it is becoming more painful and it hurts especially after eating all up his right side. He denies fevers or chills. He says he is having normal bowel movements. ROS General General: Yes weight change and fatigue Skin Skin: Yes changing moles Cardio Cardiovascular: Yes murmur, high blood pressure and heart attack Psych Psychiatric: Yes anxiety Resp Respiratory: Yes sleep apnea Gastro Gastrointestinal: Yes abdominal pain, Yes nausea or vomiting and Yes diarrhea Clarence Hematologic: Yes blood thinners and Yes blood clots Neuro Neurologic: Yes numbness and Yes tingling Exam Const General: cooperative Orientation: alert and oriented x3 HENKY Head: normal to inspection Neck Neck: normal visual inspection and full ROM Chest Chest palpation & inspection: normal inspection of the chest Resp Effort & Inspection: normal respiratory effort Auscultation: clear to auscultation bilaterally Cardio Rate: regular rate Rhythm: regular rhythm GI Inspection: non-distended Palpation: soft, hernia direct inguinal on the right and nontender Skin General: no rashes or lesions noted Neuro General: patient alert and patient oriented x3 Extrem General: full ROM Psych Appearance: grossly normal Mental Status: mental status grossly normal Assessment and Plan Assessment and Plan (1) Right inguinal hernia: Status: Acute Plan: Patient has what appears to be a direct hernia on the right side which is reducible. I discussed robotic assisted right inguinal hernia repair with mesh. I discussed the procedure in detail as well as the risks including not limited to bleeding, infection, injury to other organ such as the bowel, bladder, blood supply to the testicle. Patient understands all the risks and is willing to proceed. The patient will stop his Eliquis for 2 days and aspirin for 5 days prior to surgery. Daniel Gutiérrez MD Pager: [facility] [address] [place] [address] [address] [place] [address] Office: I have examined the patient and the H&P has been reviewed. There are no clinical changes since date of exam.
[2023-04-09] MEDS: Clindamycin 900 MG/50 ML BAG 75 MG IV (10:55)
[2023-04-09] MEDS: Bupivacaine Mpf 0.5% 30 ML VIAL (11:59)
--- NOTE | 2023-04-09 12:13 | PCM.OPRPT ---
Report of Operation Date of Procedure: 04/09/23 Pre-Operative Diagnosis: Right inguinal hernia Post-Operative Diagnosis: Right inguinal hernia Surgery/Procedure Performed:: Robotic assisted laparoscopic right inguinal hernia repair with mesh Type of Anesthesia: General/Regional Specimen's removed: None Estimated Blood Loss (mL): 10 Description of Procedure: Patient was brought back to the operating room and general anesthesia was induced. The abdomen was prepped and draped in usual sterile fashion. A midline incision made superior to the umbilicus and deepened to the fascia which was grasped and elevated. A Veress needle was placed into the abdomen and a drop test was performed. Next the abdomen was insufflated to 15 mmHg and the Veress needle was removed. Next a port was placed into the abdomen and the camera was placed into the abdomen. There were no injuries from entry. Patient was placed in steep Trendelenburg position and the pelvis was inspected. The patient had an indirect right inguinal hernia. There is a lot of scar tissue from the sigmoid colon to the left groin and the left groin was unable to be inspected with the patient has had this repaired in the past. Next under direct visualization an 8 mm port was placed in the right lateral abdomen as well as left lateral abdomen and the robot was docked. Using electrocautery scissors the peritoneum was incised in the right lower quadrant and dissection was carried inferiorly. The hernia sac was dissected free from surrounding attachments and reduced into the abdomen. Once dissection was completed a piece of ProGrip was unfolded over the inguinal hernia completely covering it with good overlap. Next the peritoneum was reapproximated using a running 3-0 STRATAFIX unidirectional suture. The peritoneum did have 2 small openings from dissection. These were closed with interrupted 3-0 Vicryl sutures. At the end of the case the mesh was completely covered by peritoneum. The robot was undocked and the abdomen was allowed to desufflate. The ports were removed. The port sites were injected with local anesthetic and closed with interrupted 4-0 Monocryl suture. Steri-Strips and bandages were applied. The scrotum was checked at the end of the case and contained both testicles. Patient was awoken and taken to PACU in stable condition and tolerated the procedure well. Grafts/Implants Used: ProGrip mesh in the right groin Admit VTE Documentation VTE Mechan Device Prophylaxis: SCD's
--- NOTE | 2023-04-09 12:17 | DCINST_ITS ---
Discharge Instructions Procedure Hernia Diet Discharge Diet: Light diet - advance as tolerated Activity Discharge Activity: May Not Drive (for 2-3 days or while taking narcotic pain meds.) and May Shower (with the bandage in place 1-2 days after surgery.) Lifting Restrictions: 20 pounds for 4 weeks. Additional Activity Instructions:: Climbing stairs is fine, walking is encouraged. Sitting in bed may be uncomfortable. Sitting up using your lateral muscles (sitting up sideways) is usually more comfortable. Do not drive, work heavy equipment of sign legal documents for 24 hours. If your hernia repair was an inguinal repair, you may have scrotal swelling, an ice pack and/or athletic support can provide more comfort. Pain medications may cause nausea, you should typically eat light foods as you take your pain medications. Pain medications may also cause constipation. If you have difficulty with this, discuss with your doctor. Dressing / Incision Call your doctor if your incision/area has: Continuous Slow Oozing, Sudden Increased Bleeding, Increased Pain/ Swelling, Increased Redness and Foul Smelling Discharge Call your doctor if you observe: Fever of 101 or Higher Suture Line Care: Avoid Pulling/Pushing and Avoid Pinching/Bending Remove Dressing in: 2 days (Remove clear bandages in 2 days, remove Steri-Strips in 7 to 10 days.) Cleanse incision/area with: Soap & Water Follow Up Care Please Follow Up With: Daniel Gutiérrez MD When: Please call to schedule 2 week follow up appointment. [phone] Test Results: Test results from this visit will be discussed in further detail at your follow- up appointment, if applicable. Discharge Plan Admission Attending Provider: Daniel Gutiérrez Primary Care Provider: Jordan Zepeda Consulting Providers: Kiko Oseguera Instructions Additional Instructions / Restrictions: Alternate ibuprofen and Tylenol for pain, oxycodone for breakthrough pain. Resume aspirin and Eliquis on Thursday Discharge Orders/Prescriptions Prescriptions: New acetaminophen 325 mg Tablet 650 mg PO Q4H PRN PRN (Reason: Pain 1-10 Or Fever) Qty: 0 0RF oxycodone 5 mg Tablet 5 - 10 mg PO Q4H PRN PRN (Reason: Pain Score 4-10) 5 Days Qty: 10 0RF No Action verapamil 180 mg capsule,ext rel. pellets 24 hr 180 mg PO QHS nitroglycerin 0.4 mg tablet, sublingual 0.4 mg SUBLINGUAL Q5-15M epinephrine 0.3 mg/0.3 mL auto-injector 0.3 mg IM ONCE PRN (Reason: ALLERGY) Rx Instructions: as a single dose Arnuity Ellipta 100 mcg/actuation blister with device 1 inh inhalation DAILY tizanidine 4 mg capsule 4 mg PO Q8H PRN (Reason: MUSCLE RELAXANT) pantoprazole 40 MG tablet 40 mg PO DAILY Patient Comments: acid reflux aspirin 81 MG tablet,chewable 81 mg PO QHS Hold Instructions: PRE SURGERY Patient Comments: antiplatelet albuterol sulfate 1 PUFF inhaler 2 puff INHALATION Q4H PRN PRN (Reason: Sob &/Or Wheezing) Patient Comments: Shortness of breath Eliquis 5 MG tablet 5 mg PO BID Hold Instructions: PRE SURGERY losartan 50 MG tablet 25 mg PO DAILY Patient Comments: TAKE 1 TABLET BY MOUTH EVERY DAY multivitamin with minerals 1 EACH tablet 1 tab PO DAILY meclizine 25 MG tablet 25 mg PO TID PRN PRN (Reason: dizziness, vertigo) Qty: 30 0RF rosuvastatin 10 mg tablet 5 mg PO QHS Referrals / Follow Up: Jordan Zepeda MD [Primary Care Provider] - Disposition Disposition (needs filled in before D/C Order can be placed): Home, Self Care
--- NOTE | 2023-04-09 12:38 | EKG12_ITS ---
Test Reason : CP Blood Pressure : / mmHG Vent. Rate : 044 BPM Atrial Rate : 044 BPM P-R Int : 202 ms QRS Dur : 098 ms QT Int : 448 ms P-R-T Axes : 023 -12 007 degrees QTc Int : 383 ms Marked sinus bradycardia Inferior infarct (cited on or before 06-MAY-2019) Abnormal ECG Confirmed by ELIANE AMOR, LUIS ANGEL ([id number]), market editor DAQUAN PARKER ([id number]) on 04/13/2023 10:52:36 AM Referred By: Daniel Gutiérrez Confirmed By:LUIS ANGEL DEL RIO MD
[2023-04-09] MEDS: Nitroglycerin (INPATIENT USE) 0.4 MG TAB.SUBL SL (13:08)
--- NOTE | 2023-04-09 13:30 | SUR.PHASEI ---
DR. ARTEAGA AND DR. YEE AWARE OF PATIENT'S TROPONIN OF 7. STILL WANTS A REPEAT IN 4 HOURS WHICH WILL BE AT 1700. PATIENT DENIES CHEST PAIN CURRENLTY.
[2023-04-09 13:38] LABS: Troponin-I HS 7 pg/mL (3.0-78.0)
--- NOTE | 2023-04-09 14:21 | SUR.PHASEI ---
PATIENT TOLD THIS NURSE THAT HE ACCIDENTLY TOOK IS NIGHT TIME VERAPAMIL 180 EX AND HIS LOSARTAN 12.5 MG THIS MORNING SO THAT IS PROBABLY WHY HIS HEART RATE HAS BEEN RUNNING IN THE 40'S. DR. ARTEAGA MADE AWARE.
[2023-04-09 17:29] LABS: Troponin-I HS 6 pg/mL (3.0-78.0)
== END 2023-04-09 17:50 | disposition home or self-care (01) ==
LOC: SDC 08:47 → AC 08:47
PROVIDERS: Anesthesiology; PCP Family Medicine; Referring Provider Surgery; Visit Provider Surgery
PROC: (CPT 49650; principal; 2023-04-09 11:10)
DX: K40.90 Unilateral inguinal hernia, without obstruction or gangrene, not specified as recurrent (principal); E11.9 Type 2 diabetes mellitus without complications; I25.10 Atherosclerotic heart disease of native coronary artery without angina pectoris; I10 Essential (primary) hypertension; E78.5 Hyperlipidemia, unspecified; G47.33 Obstructive sleep apnea (adult) (pediatric); I25.2 Old myocardial infarction; F41.9 Anxiety disorder, unspecified; R01.1 Cardiac murmur, unspecified; R94.31 Abnormal electrocardiogram [ECG] [EKG]; R07.9 Chest pain, unspecified
CPT/HCPCS: 49650; S2900; 00840; 36415; 80048; 80076; 84484; 85027; 85610; 85730; 93005; J7120; J2405

== ENCOUNTER 2024-03-09 10:22 | Outpatient (CLI) | payer MEDICARE, SELFPAY ==
[2024-03-09 11:24] LABS: Hematocrit 45.5 % (40-54); Hemoglobin 15.4 g/dL (13.0-16.5); Mean Corp Hgb Conc 33.8 g/dL (32-36); Mean Corpuscular Hgb 31.6 pg (27.0-32.0); Mean Corpuscular Volume 93.2 fL (80-94); Mean Platelet Vol. 9.4 fl (6.2-12.0); Platelet Count 296 K/mm3 (150-450); RBC Distribution Width CV 13.4 % (11.6-14.6); RBC Distribution Width SD 45.9 fl (35.1-43.9); Red Blood Count 4.88 M/mm3 (4.6-6.2); White Blood Count 13.9 K/mm3 (4.4-11.0)
[2024-03-09 11:49] LABS: Erythrocyte Sedimentation Rate 1 mm/hr (0-20)
[2024-03-09 11:53] LABS: Vitamin D,25 Hydroxy 30.4 ng/mL
[2024-03-09 12:19] LABS: AST(SGOT) 12 U/L (15-37); Alanine Aminotransfer ALT/SGPT 36 U/L (16-61); Albumin, Serum 3.6 g/dL (3.2-5.0); Alkaline Phosphatase 56 U/L (45-117); Anion Gap 5 (5-15); BUN 21 mg/dL (7-18); BUN/Creat Ratio 30.3 RATIO (10-20); CRP < 2.90 mg/L (0.0-3.0); Calcium,Total 9.3 mg/dL (8.5-10.1); Chloride 104 mmol/L (98-107); Cholesterol 164 mg/dL (200); Creatinine, Serum 0.69 mg/dL (0.70-1.30); EST Glomerular Filtration Rate 119 mL/min (>60); Est Glom Filt Rate - Afr Amer 145 mL/min (>60); Globulin 3.6 g/dL (2.2-4.2); Glucose 128 mg/dL (74-106); High Density Lipoprotein 64 mg/dL; Potassium 4.5 mmol/L (3.5-5.1); Protein, Total 7.2 g/dL (6.4-8.2); Sodium Level 138 mmol/L (136-145); Triglycerides 60 mg/dL; Uric Acid 3.6 mg/dL (3.5-7.2); Very Low Density Lipoprotein 12 mg/dL (5-40)
[2024-03-11 09:09] LABS: Anti-Nuclear Antibody Test Negative (.)
== END 2024-03-09 23:59 | disposition home or self-care (01) ==
LOC: LAB 10:23
PROVIDERS: PCP Family Medicine; Referring Provider Family Medicine; Visit Provider Family Medicine
DX: M25.549 Pain in joints of unspecified hand (principal); L03.119 Cellulitis of unspecified part of limb; R06.02 Shortness of breath; I35.1 Nonrheumatic aortic (valve) insufficiency; R53.83 Other fatigue
CPT/HCPCS: 36415; 80053; 80061; 82306; 83880; 84443; 84550; 85027; 85652; 86038; 86140

== ENCOUNTER → 2024-03-17 | Outpatient (CLI) | payer MEDICARE, SELFPAY | END | disposition home or self-care (01) | PROVIDERS: PCP Family Medicine; Referring Provider Family Medicine; Visit Provider Family Medicine | DX: I35.1 Nonrheumatic aortic (valve) insufficiency (principal); R06.02 Shortness of breath | CPT/HCPCS: 93306; Q9957; A4216; C8929 ==

== ENCOUNTER → 2024-06-22 | Outpatient (CLI) | payer MEDICARE, SELFPAY ==
--- NOTE | 2024-06-22 13:51 | ECHOCS_ITS ---
Reason For Study Reason For Study: Edema, Murmur Procedure This was a 2D Doppler, Color Flow transthoracic echocardiogram. The study was technically difficult. Contrast injection was performed. Exam performed in department. Left Ventricle Normal LV size. Left ventricular systolic function is normal. The left ventricular ejection fraction is 65 %. Stage 1 diastolic dysfunction. No regional wall motion abnormalities noted. Right Ventricle Normal RV size. Normal systolic function. Atria Normal left atrium. Normal right atrium. Mitral Valve Mild focal mitral valve calcification, bileaflet. Tricuspid Valve Normal tricuspid valve. Mild (1+) tricuspid valve insufficiency. Pulmonary artery systolic pressure is 27 mmHg. Aortic Valve Trisinus/trileaflet aortic valve. Peak aortic valve gradient 26 mmHg. Mean aortic valve gradient 14 mmHg. Mild (1+) aortic valve insufficiency. Pulmonic Valve Normal pulmonic valve. Great Vessels Normal aortic root. The pulmonary artery is normal size. Normal inferior vena cava. Pericardium/Pleural No pericardial effusion. Medication 22 gauge I.V. with prn adaptor inserted into right arm. Diluted definity 1.5ml given slow IV push to enhance endocardial definition. MMode/2D Measurements & Calculations LVIDd: 5.4 cm IVSd: 1.3 cm LVOT diam: 2.0 cm LVIDs: 3.5 cm LVPWd: 0.98 cm FS: 36.1 % LVOT area: 3.0 cm2 Ao root diam: 3.2 cm LAV(MOD-bp): 41.3 ml LVAd ap4: 41.2 cm2 LAV(MOD-bp) Indexed: 21.0 ml/m2 LVLd ap4: 9.2 cm LAV(MOD-sp2): 40.6 ml EDV(MOD-sp4): 148.9 ml LAV(MOD-sp4): 31.5 ml EDV(sp4-el): 156.6 ml LVAs ap4: 24.3 cm2 LVLs ap4: 7.6 cm ESV(MOD-sp4): 61.5 ml ESV(sp4-el): 65.6 ml EF(MOD-sp4): 58.7 % EF(sp4-el): 58.1 % SV(MOD-sp4): 87.4 ml SV(sp4-el): 90.9 ml LA A4 area: 12.2 cm2 SI(MOD-sp4): 44.3 ml/m2 LA dimension(2D): 3.6 cm RA A4 area: 9.5 cm2 Time Measurements MV dec time: 0.26 sec Doppler Measurements & Calculations MV E max sav: 67.8 cm/sec Lat Peak E' Sav: 10.4 cm/sec Med Peak E' Sav: 8.0 cm/sec MV A max sav: 86.6 cm/sec E/E' lat: 6.5 E/E' med: 8.5 MV E/A: 0.78 MV V2 max: 95.1 cm/sec MV P1/2t max sav: 77.6 cm/sec Ao V2 max: 256.5 cm/sec MV max P.6 mmHg MV P1/2t: 92.2 msec Ao max P.3 mmHg MV V2 mean: 45.8 cm/sec MV dec slope: 246.8 cm/sec2 Ao V2 mean: 173.4 cm/sec MV mean P.0 mmHg MVA(P1/2t): 2.4 cm2 Ao mean P.0 mmHg MV V2 VTI: 30.9 cm Ao V2 VTI: 56.8 cm MVA(VTI): 3.1 cm2 AV (velocity ratio): 0.57 KATIE(I,D): 1.7 cm2 KATIE(V,D): 1.8 cm2 AI max sav: 454.4 cm/sec LV V1 max: 149.4 cm/sec SV(LVOT): 97.5 ml AI max P.9 mmHg LV V1 max P.9 mmHg LV V1 mean P.1 mmHg AI dec slope: 174.5 cm/sec2 LV V1 mean: 106.9 cm/sec AI P1/2t: 762.6 msec LV V1 VTI: 32.2 cm TR max sav: 242.0 cm/sec TR max P.4 mmHg ECHO/Echo Complete W/ Contrast Interpretation Summary Normal LV size. Left ventricular systolic function is normal. The left ventricular ejection fraction is 65 %. Stage 1 diastolic dysfunction. Mean aortic valve gradient 14 mmHg. Mild (1+) aortic valve insufficiency. Contrast injection was performed. Ordering Physician: Jordan Zepeda Referring Physician: Jordan Zepeda Performed By: Aquiles Rodarte RCS
== END | disposition home or self-care (01) ==
PROVIDERS: PCP Family Medicine; Referring Provider Family Medicine; Visit Provider Family Medicine
DX: I35.1 Nonrheumatic aortic (valve) insufficiency (principal); R06.02 Shortness of breath
CPT/HCPCS: 93306; Q9957; A4216; C8929

== ENCOUNTER → 2024-08-03 | Outpatient (CLI) | payer MEDICARE, SELFPAY ==
--- NOTE | 2024-08-03 12:16 | CT_ITS ---
PROCEDURE: CHEST WITH CONTRAST 08/03/2024 REASON FOR EXAM: CHEST PAIN SOB TECHNIQUE: Prone and supine chest CT with intravenous contrast, high resolution CT (HRCT) protocol. Coronal and Sagittal reconstruction series were provided. CONTRAST: Isovue 370 VOLUME: 100mL. One or more dose reduction techniques were used (e.g., Automated exposure control, adjustment of the mA and/or kV according to patient size, use of iterative reconstruction technique). RADIATION DOSE SUMMARY: CTDlvol: 29.27 mGy DLP: 444.50 mGycm COMPARISON: Chest x-ray of 05/27/2022. FINDINGS: The visualized upper abdomen shows no acute process. Colonic diverticulosis is seen at the visualized portion of the left colon. No evidence of pulmonary edema. No acute pneumonic process is seen. No pleural effusion or pneumothorax is evident. No pericardial effusion is seen. No evidence of pulmonary embolism. No adenopathy is seen. CT/Chest WITH Contrast IMPRESSION: No evidence of pulmonary embolism. Reading Location: [id number]
== END | disposition home or self-care (01) ==
LOC: CT 12:09
PROVIDERS: PCP Family Medicine; Referring Provider Family Medicine; Visit Provider Family Medicine
DX: R07.9 Chest pain, unspecified (principal); R01.1 Cardiac murmur, unspecified; I25.10 Atherosclerotic heart disease of native coronary artery without angina pectoris; R06.02 Shortness of breath; M25.511 Pain in right shoulder; M25.512 Pain in left shoulder
CPT/HCPCS: 71260; Q9967

== ENCOUNTER → 2024-08-17 | Outpatient (CLI) | payer MEDICARE, SELFPAY ==
[2024-08-17 15:20] LABS: Absolute Lymphocyte Count 1.83 X10^3/uL (0.83-4.51); Basophil# 0.06 X10^3/uL; Basophil% 0.7 % (0-1); Eosinophil# 0.19 X10^3/uL; Eosinophils% 2.1 % (0-5); Hematocrit 44.5 % (40-54); Hemoglobin 15.2 g/dL (13.0-16.5); Lymphocyte # 1.83 X10^3/ul (0.83-4.51); Lymphocyte % 20.4 % (19-41); Mean Corp Hgb Conc 34.2 g/dL (32-36); Mean Corpuscular Hgb 30.6 pg (27.0-32.0); Mean Corpuscular Volume 89.7 fL (80-94); Mean Platelet Vol. 9.8 fl (6.2-12.0); Monocyte# 0.81 X10^3/uL; NRBC Flagged by Analyzer 0 % (0-5); Neutrophil # 6.02 X10^3/uL (2.7-7.7); Neutrophil % 66.9 % (47-70); Platelet Count 261 K/mm3 (150-450); RBC Distribution Width CV 13.3 % (11.6-14.6); RBC Distribution Width SD 43.8 fl (35.1-43.9); Red Blood Count 4.96 M/mm3 (4.6-6.2)
[2024-08-17 16:23] LABS: Anion Gap 12 (5-15); BUN 12 mg/dL (4-19); BUN/Creat Ratio 19.5 RATIO (10-20); Calcium,Total 9.6 mg/dL (7.6-11.0); Chloride 102 mmol/L (98-108); Creatinine, Serum 0.62 mg/dL (0.70-1.20); EST Glomerular Filtration Rate 102 (>60); Glucose 107 mg/dL (70-99); Potassium 4.2 mmol/L (3.3-5.1); Pro- Brain NATRIURETIC PEPTIDE < 36 pg/mL (<=900); Sodium Level 139 mmol/L (133-145)
== END | disposition home or self-care (01) ==
LOC: LAB 13:43
PROVIDERS: PCP Family Medicine; Referring Provider Nurse Practitioner Family; Visit Provider Nurse Practitioner Family
DX: I35.1 Nonrheumatic aortic (valve) insufficiency (principal); I42.9 Cardiomyopathy, unspecified; I25.10 Atherosclerotic heart disease of native coronary artery without angina pectoris; I10 Essential (primary) hypertension; E78.5 Hyperlipidemia, unspecified; R06.09 Other forms of dyspnea; R53.83 Other fatigue
CPT/HCPCS: 36415; 80048; 83735; 83880; 84439; 84443; 85025

== ENCOUNTER → 2024-09-08 | Outpatient (CLI) | payer MEDICARE, SELFPAY ==
--- NOTE | 2024-09-08 15:25 | STRESSREP_ITS ---
Stress Test Report Date: 09/08/2024 Procedure: Pharmacologic stress nuclear imaging study Indications: Chest pain Consent: Per the patient Procedure: The patient underwent pharmacologic (Regadenoson 0.4mg ) evaluation with a peak heart rate of 76 beats per minute (51%predicted maximal heart rate) and a peak blood pressure of 132/70 mmHg. The baseline ECG demonstrated sinus rhythm. The peak pharmacologic ECG showed no ischemic changes. There were no cardiac dysrhythmias pretest, during pharmacologic infusion, or recovery. There was no complaint of chest discomfort during pharmacologic infusion or recovery. The patient was injected with 11.3 millicuries of technetium 99m Cardiolite and subsequently rest SPECT Cardiolite nuclear imaging was obtained in the horizontal long, vertical long, and short axis views. The patient underwent pharmacologic (Regadenoson) evaluation. The patient was injected with 32.6 millicuries of technetium 99m Cardiolite and subsequently stress SPECT Cardiolite nuclear imaging was obtained in the horizontal long, vertical long, and short axis views. A gated Cardiolite study at peak stress was obtained. The examination was stopped secondary to completion of protocol. Rest and stress SPECT Cardiolite nuclear imaging status post realignment, and normalization demonstrate a moderate-sized reversible perfusion defect of the inferior wall of moderate intensity suggesting ischemia. Mild basal lateral reversible defect of mild intensity there is end systolic thickening and brightening. The gated Cardiolite study demonstrates myocardial thickening and inward wall motion. The reported LVEF is 74%. Impression: 1. Pharmacologic (Regadenoson) evaluation 2. Peak pharmacologic ECG with no ischemic changes. 3. There were no cardiac dysrhythmias pretest, during pharmacologic infusion, or recovery. 5. Moderate size reversible perfusion defect of the inferior wall and small reversible perfusion defect of the basal lateral wall suggestive of ischemia. 6. The gated Cardiolite study reports an LVEF of 74%. This note was generated with [employer] software. It may contain incorrect words, spelling, and punctuation that were not noted in checking the note before signing.
== END | disposition home or self-care (01) ==
PROVIDERS: PCP Family Medicine; Referring Provider Nurse Practitioner Family; Visit Provider Nurse Practitioner Family
DX: I25.10 Atherosclerotic heart disease of native coronary artery without angina pectoris (principal)
CPT/HCPCS: 78452; 93017; A9500; A4216; J2785

== ENCOUNTER 2024-09-29 13:49 | Observation (INO) | payer MEDICARE, SELFPAY ==
--- NOTE | 2024-09-19 09:42 | RAD_ITS ---
PROCEDURE: CHEST PA AND LATERAL 09/19/2024 REASON FOR EXAM: PRE-PROCEDURE DIAGNOSTIC TECHNIQUE: Frontal and lateral views of the chest. COMPARISON: 05/27/2022 FINDINGS: The lungs appear clear. The cardiac and mediastinal contours appear within limits. RAD/Chest PA and Lateral IMPRESSION: No evidence of acute disease. Reading Location: [id number]
[2024-09-19 10:03] LABS: Absolute Lymphocyte Count 1.72 X10^3/uL (0.83-4.51); Absolute Neutrophil Count 4.2 X10^3/uL (2.0-7.7); Basophil# 0.06 X10^3/uL; Basophil% 0.9 % (0-1); Eosinophil# 0.19 X10^3/uL; Eosinophils% 2.7 % (0-5); Hematocrit 42.1 % (40-54); Hemoglobin 14.6 g/dL (13.0-16.5); Lymphocyte # 1.72 X10^3/ul (0.83-4.51); Lymphocyte % 24.5 % (19-41); Mean Corp Hgb Conc 34.7 g/dL (32-36); Mean Corpuscular Volume 89.4 fL (80-94); Mean Platelet Vol. 9.3 fl (6.2-12.0); Monocyte# 0.84 X10^3/uL; Monocyte% 11.9 % (0-10); NRBC Flagged by Analyzer 0 % (0-5); Neutrophil # 4.17 X10^3/uL (2.7-7.7); Neutrophil % 59.3 % (47-70); Platelet Count 264 K/mm3 (150-450); RBC Distribution Width SD 42.8 fl (35.1-43.9); Red Blood Count 4.71 M/mm3 (4.6-6.2)
[2024-09-19 10:19] LABS: Prothrombin Time (Protime)PT. 13.6 SECONDS (11.7-14.9)
[2024-09-19 10:53] LABS: Anion Gap 11 (5-15); BUN 14 mg/dL (4-19); BUN/Creat Ratio 21.3 RATIO (10-20); Calcium,Total 9.2 mg/dL (7.6-11.0); Chloride 106 mmol/L (98-108); Creatinine, Serum 0.67 mg/dL (0.70-1.20); EST Glomerular Filtration Rate 100 (>60); Glucose 142 mg/dL (70-99); Potassium 4.2 mmol/L (3.3-5.1); Sodium Level 140 mmol/L (133-145)
--- NOTE | 2024-09-25 13:35 | HP.PCM_ITS ---
History and Physical Date of Admission: 09/29/24 This is a 69-year-old gentleman with a history of CAD, a non-CAD related cardiomyopathy, hyperlipidemia, and hypertension. He follows with Dr. Stephens for skin cancer and has completed chemotherapy cream. He underwent stress test on 09/08/2024 that showed moderate size reversible defect in the inferior wall and small reversible defect of the basal lateral wall. LV function reported at 74%. On account of abnormal stress test and symptoms, he will proceed with heart catheterization. He acknowledges random, left-sided chest discomfort. This can last from all day to half an hour. This is mostly noted at rest and denies it with activity. He acknowledges lower extremity edema with left worse than right. He acknowledges occasional shortness of breath and when he feels that he cannot get breath in. He acknowledges palpitations. He denies shortness of breath at rest, orthopnea, cough, or PND. He acknowledges dizziness, lightheadedness, weakness, fatigue, and headaches. He states his symptoms have been gradually worsened for 2.5 months, but worsening over the last month. Chest CT with PCP was negative for PE and no comment regarding aortic aneurysm. Intake Vital Signs: See EMR Intake Visit Reasons: [facility] Clearance Coordinator Required: No Is patient in pain?: No Allergies bee venom protein (honey bee) Allergy (Verified 08/17/24 13:02) Anaphylaxis cefadroxil hydrate (From Duricef) Allergy (Verified 08/17/24 13:02) Rash niacin (From Niaspan Extended-Release) Allergy (Verified 08/17/24 13:02) Rash azatadine Adverse Reaction (Verified 08/17/24 13:02) Other pseudoephedrine Adverse Reaction (Verified 08/17/24 13:02) Other Medications: See EMR Ejection fraction %: 65 Have you fallen in the past year?: No [facility] Medical History Wears dentures History of diverticulitis CAD (coronary artery disease) Right inguinal hernia Abnormal nuclear stress test Atherosclerotic heart disease of [place] coronary artery without angina pectoris Wears glasses Wears partial dentures Cancer Depression Anxiety Abrasion Arthritis Fatty liver Easy bruising Excessive bleeding Restless legs Vertigo Gastric reflux Sleep apnea CPAP (continuous positive airway pressure) dependence Shortness of breath on exertion Non-smoker History of edema Leg cramps History of echocardiogram Hypertension History of heart attack Chest pain History of stress test Cardiology follow-up encounter Abdominal pain Vertigo Squamous cell carcinoma Elevated troponin I level (2005) Nonobstructive atherosclerosis of coronary artery Recurrent deep vein thrombosis (DVT) Nonischemic cardiomyopathy Obstructive sleep apnea Gastroesophageal reflux disease Talamantes's esophagus Paroxysmal supraventricular tachycardia Osteoarthritis Insomnia Carotid artery occlusion without infarction Diverticulitis Type 2 diabetes mellitus without complication Asthma Myalgia Facial paresthesia (07/2018) Pericarditis Migraines History of GI bleed Hyperlipidemia Essential hypertension GI bleed Surgical History History of robot-assisted repair of right inguinal hernia History of esophagogastroduodenoscopy (EGD) History of colonoscopy History of left heart catheterization (06/03/22) History of left knee surgery History of inguinal hernia repair History of appendectomy Family History Brother Cancer prostate DiabetesFather Cancer stomach CAD (coronary artery disease) Heart disease Hypertension Hearing lossMother CAD (coronary artery disease) Diabetes Heart disease Hypertension CVA (cerebral vascular accident) Social History Smoking Status: Never smoker alcohol intake: never substance use type: does not use caffeine: Yes Type: coffee Number of servings: 3 ROS Const Const: Positive for fatigue, weakness and headache(s); Negative for frequent falls Eyes Eyes: Negative for blurry vision ENT ENT: Positive for headache(s) and dizziness; Negative for Nosebleed/epistaxis Cardio Chest Pain: Yes Palpitations: Yes Edema: Bilateral Muscle aches with walking: None Resp Respiratory: Negative for SOB with activity, SOB at rest or SOB orthopnea\SOB lying down GI GI: Negative nausea, vomiting, heartburn, bright, red blood in stools or black,tarry stools : Negative for hematuria Musc Musc: Negative for muscle aches/ myalgia Skin Skin: Negative non-healing lesions or rash Neuro Neuro: Positive for dizziness, lightheadedness, headache(s) and weakness; Negative for near syncope, syncope, frequent falls or blurry vision Endo Endo: Positive for fatigue Allergy Allergy/Immunology: Negative for rash Cardiology Exam Const Appearance: cooperative, healthy appearing, comfortable and no acute distress Nutritional Appearance: well nourished and overweight Orientation: alert, awake and oriented x3 Head Head: normal to inspection Ears: hearing grossly normal bilaterally Nose: external nose normal Face and Sinus: face symmetric Mouth: moist mucous membranes Eyes General: appearance normal, both eyes and all related structures Eyelids: eyelids normal EOM: EOM intact bilaterally Neck Neck: normal visual inspection and no JVD Carotids: normal carotid upstroke Chest Chest inspection: normal inspection of the chest, symmetric chest movement and normal respiratory effort; Negative cough Auscultation: Bilateral: Clear to Auscultation Cardio Rate: regular rate Rhythm: regular rhythm Heart sounds: S1 normal, S2 normal and murmur; Negative rub or gallop Murmur: Grade 2/6 and KASSI loudest LLSB GI GI: normal to inspection Neuro General: patient alert, patient awake, patient oriented x3 and CN's II-XI intact bilaterally Skin Skin: no rashes or lesions noted Extremities Pulses: Normal: Right Posterior Tibial Pulse, Left Posterior Tibial Pulse, Right Radial Pulse and Left Radial Pulse Lower Extremity Edema: None: Bilateral Psych Psychological: normal affect Supplemental Info Supplemental Information Echocardiogram from 03/17/2024: Interpretation Summary Mild concentric left ventricular hypertrophy. The left ventricular ejection fraction is 65 %. Mild calcific aortic valve stenosis with mean peak gradient of 14.6 mmHg. Mild to moderate aortic valve regurgitation. Echocardiogram from 07/17/2020: Interpretation Summary Normal LV size. Left ventricular systolic function is normal. The estimated ejection fraction is 70 %. Stage 1 diastolic dysfunction. Mild (1+) aortic valve insufficiency. Contrast injection was performed. Compared to prior study, there is no significant change. Stress test from 09/08/2024: Impression: 1. Pharmacologic (Regadenoson) evaluation 2. Peak pharmacologic ECG with no ischemic changes. 3. There were no cardiac dysrhythmias pretest, during pharmacologic infusion, or recovery. 5. Moderate size reversible perfusion defect of the inferior wall and small reversible perfusion defect of the basal lateral wall suggestive of ischemia. 6. The gated Cardiolite study reports an LVEF of 74%. Heart Catheterization 06/03/2022: CONCLUSIONS Elevated Left Ventricular End Diastolic Pressure [place] Multivessel CAD RECOMMENDATIONS Risk factor modification Medical therapy CORONARY ANGIOGRAPHY DOMINANCE: Right Dominant LEFT HEART ASSESSMENT Left Ventricular Ejection Fraction: Not assessed Elevated Left Ventricular End Diastolic Pressure LVEDP: 20 mmHg LEFT MAIN: Angiographically normal LEFT ANTERIOR DESCENDING ARTERY: PROX LAD: Mild luminal irregularities MID LAD: Mild luminal irregularities CIRCUMFLEX ARTERY: PROX CIRC: Mild luminal irregularities MID CIRC: Mild luminal irregularities less than 30% RIGHT CORONARY ARTERY: Mild luminal irregularities PROX RCA: 50 % Stenosis RT PDA: Proximal - Mild luminal irregularities, Mid - Mild luminal irregularities Assessment and Plan Assessment and Plan (1) Atherosclerotic heart disease of [place] coronary artery without angina pectoris: Status: Chronic Qualifiers: [place] vs. transplanted heart: [place] heart Qualified Code(s): I25.10 - Atherosclerotic heart disease of [place] coronary artery without angina pectoris Comment: Nonobstructive per cardiac cath 01/09/2020 Plan: Heart catheterization in May 2022 showed [place] multivessel coronary artery disease with proximal RCA showing 50% stenosis. Medical therapy was recommended. Twelve-lead ECG on 08/17/2024 shows sinus rhythm at a rate of [address] or T wave changes. He will proceed with heart catheterization on account of ongoing symptoms and abnormal stress test. Depending results, further recommendation be made. (2) Cardiomyopathy: Status: Chronic Qualifiers: Cardiomyopathy type: unspecified Qualified Code(s): I42.9 - Cardiomyopathy, unspecified Plan: Nonischemic cardiomyopathy: Echocardiogram 06/22/2024-EF: 65%, 03/17/2024?EF: 65%, 07/17/2024?EF: 70% Twelve-lead EC08/17/2024-sinus rhythm at 71 bpm with QRS 98 [place] [employer] Functional Class: 2 ACC/AHA stage: C NT proBNP on 08/17/2024 was negative (< 36). He was diagnosed with nonischemic cardiomyopathy in 2005. His most recent echocardiogram showed a preserved ejection fraction. We will continue to monitor. (3) Hyperlipidemia: Status: Chronic Qualifiers: Hyperlipidemia type: unspecified Qualified Code(s): E78.5 - Hyperlipidemia, unspecified Plan: He will continue lifestyle modifications. He will continue Crestor 10 mg p.o. daily. (4) Essential hypertension: Status: Chronic Plan: He will continue antihypertensive therapy with adjustment as needed. (5) Nonrheumatic aortic (valve) insufficiency: Status: Acute Plan: Echocardiogram on 06/22/2024 showed LV function 65%, mild aortic valve insufficiency, and a mean aortic valve gradient of 14 mmHg. Pulmonary artery systolic pressure was noted be 27 mmHg. He will continue current medical therapy and we will continue to monitor. (6) Dyspnea on exertion: Status: Acute Plan: This has been gradual over the last 2 months. His most recent chest CTA shows no noted concerns. Echocardiogram in June 2024 shows preserved LV function. With such symptoms and abnormal stress test, will proceed with heart catheterization.
[2024-09-28 09:06] VITALS: BMI 25.7
[2024-09-29] VITALS (11 sets, daily range): BP systolic 119–136; BP diastolic 60–76; PULSE 54–68; RESP 14–20; TEMP 36.6–36.8; O2SAT 98–100; BMI 25.9
--- NOTE | 2024-09-29 13:49 | CL.I_ITS ---
Patient Name: PARVEZ ROGERS Study Date: 09/29/2024 Performing: Oanh Mena MD Ht: 69 inches 175.26 cm : 1955 Wt: 174.01 lbs 78.93 kg Age: 69 Gender: male BSA: 1.95 PROCEDURE(S) PERFORMED DC02-(36069)LHC/COR IC12-(01837/C9600)EMERITA W/WO PTCA, SINGLE CORONARY ARTERY CLINICAL PROFILE AND CO-MORBIDITIES Indications: Worsening Angina Heart Failure: None Stress/Imaging Stress Test w/SPECT MPI: Yes Result: Positive Intermediate Risk Stress Test with SPECT MPI: Positive Intermediate Risk CAD Presentations: Symptom unlikely to be ischemic. CONCLUSIONS 40% Prox LAD 80% Mid LCX 70% Prox RCA, 65% Prox RPDA Successful EMERITA Mid LCX using Elkin Pendleton 3.0x22 mm RECOMMENDATIONS P2Y12 inhibitors for atleast 12 months Continue patient's Apixaban Staged PCI to RCA DESCRIPTION OF PROCEDURE The patient arrived to the procedure lab. The risks and benefits of the procedure as well as a full description of our services here and lack of surgical backup were fully explained to the patient and/or their significant other prior to the catheterization. The Timeout was completed, verifying the correct patient and procedure. The patient's procedural site was prepped and draped in the usual fashion. Local anesthetic was given subcutaneously to right radial region with Lidocaine 2%. Using a modified Seldinger technique, arterial access was obtained via the right radial artery, a 6Fr sheath was inserted.. Right Coronary Artery selective angiography was then performed in multiple views using a 5 Fr. 4.0 Hudson catheter. Left Coronary Artery selective angiography was performed in multiple views using a 5 Fr. JL3.5 catheterThe images were reviewed and options discussed. A decision was then made to proceed with an Intervention, IVUS or other adjunct procedure. XB 3.0 Guide catheter was inserted and engaged into the LCA. Runthrough Guide wire was advanced to the circumflex Pendleton Elkin 3.0x22 Drug Eluting stent was inserted. Angiogram performed post stent deployment. NC Emerge 3.00x15 Balloon catheter was inserted. Post stent PTCA balloon inflated at 16 atms for 13 secs. Angiogram performed post balloon dilatation. The arterial sheath was pulled and a TR Band was applied for hemostasis w/ 10ml air CORONARY ANGIOGRAPHY DOMINANCE: Right Dominant LEFT MAIN: Angiographically normal LEFT ANTERIOR DESCENDING ARTERY: LAD: Calcified 40% Proximal lesion in LAD RIGHT CORONARY ARTERY: RCA: Tubular 70% Proximal lesion in RCA RT PDA: Tubular 65% Ostial lesion in RT PDA INTERVENTION INFORMATION LESION SITE: Circumflex (Mid) Lesion Complexity: High/C, lesion length: 20 mm Pre Stenosis: 80 % Pre intervention BARRY flow: 3 PROCEDURE: Drug Eluting Stent with post dilatation Post Stenosis: 0 % Post intervention BARRY flow: 3 Lesion Devices: Terumo .014 180cm Runthrough Extra Floppy straight Cordis 6 Fr XB3.0 100cm Guide Catheter Medtronic 3.0 x 22 ELKIN FRONTIER EMERITA Devan Sci NC EMERGE MR 3.00x15 BALLOON COMPLICATIONS No Complications PROCEDURE MEDICATIONS Versed 1 mg IV Fentanyl 50 mcg IV Oxygen: 2 L/min via nasal cannula Brilinta 180 mg PO @ 09/29/2024 13:14:49 Heparin given IA 09/29/2024 12:57:48 Heparin 5000 unit(s) IV 09/29/2024 13:11:08 Heparin 2000 unit(s) IV 09/29/2024 13:20:10 Heparin 3000 unit(s) IV 09/29/2024 13:41:55 Nitro 200 mcg IC 09/29/2024 13:24:07 Nitro 200 mcg IC 09/29/2024 13:24:07 Nitro 200 mcg IC 09/29/2024 13:26:25 Verapamil 2.5mg, Ntg 200mcgs, 2000 units of Heparin given IA 09/29/2024 12:57:48 IV Bolus: .9 NaCl ml total 09/29/2024 13:09:27 SUMMARY OF HEMODYNAMIC DATA Time AIR REST AO 124/65 (89) SA 13:04:01 AO 147/73 (100) 13:16:03 ECG 13:47:59 Signed By Oanh Mena MD On 09/29/2024 13:48:39 Oanh Mena MD
--- NOTE | 2024-09-29 13:53 | PCM.DC ---
Discharge Instructions DC O2, CPAP, BIPAP needs Home O2 Discharge instructions: No Dressing / Incision Discharge Activity: Return to Normal Activity Dressing / Incision Call your doctor if your incision/area has: Continuous Slow Oozing, Sudden Increased Bleeding, Increased Pain/ Swelling, Increased Redness, Foul Smelling Discharge and Swelling at the incision site Call your doctor if you observe: Fever of 101 or Higher, Coldness, Increased Pain, Numbness or Tingling and Change in Color Follow Up Care Please Follow Up With: Oanh Mena MD When: 2 weeks Test Results: Test results from this visit will be discussed in further detail at your follow-up appointment, if applicable. Discharge Plan Admission Attending Provider: Oanh Mena Primary Care Provider: Jordan Zepeda Instructions Print Language: Jamaican Discharge Orders/Prescriptions Prescriptions: New clopidogrel 75 mg Tablet 75 mg PO DAILY Qty: 30 6RF Continued verapamil 180 mg capsule,ext rel. pellets 24 hr 180 mg PO QHS nitroglycerin 0.4 mg tablet, sublingual 0.4 mg SUBLINGUAL Q5-15M epinephrine 0.3 mg/0.3 mL auto-injector 0.3 mg IM ONCE PRN (Reason: ALLERGY) Rx Instructions: as a single dose tizanidine 4 mg capsule 4 mg PO Q8H PRN (Reason: MUSCLE RELAXANT) pantoprazole 40 MG tablet 40 mg PO DAILY Patient Comments: acid reflux albuterol sulfate 1 PUFF inhaler 2 puff INHALATION Q4H PRN PRN (Reason: Sob &/Or Wheezing) Patient Comments: Shortness of breath Eliquis 5 MG tablet 5 mg PO BID multivitamin with minerals 1 EACH tablet 1 tab PO DAILY meclizine 25 MG tablet 25 mg PO TID PRN PRN (Reason: dizziness, vertigo) Qty: 30 0RF rosuvastatin 10 mg tablet 5 mg PO QHS acetaminophen 325 mg Tablet 650 mg PO Q4H PRN PRN (Reason: Pain 1-10 Or Fever) Qty: 0 0RF Discontinued aspirin 81 MG tablet,chewable 81 mg PO QHS Patient Comments: antiplatelet Referrals / Follow Up: Jordan Zepeda MD [Primary Care Provider] - Disposition Disposition (needs filled in before D/C Order can be placed): Home, Self Care
[2024-09-29 13:57] LABS: ACT Activated Clotting Time 222 sec (74-137)
[2024-09-29 13:57] LABS: ACT Activated Clotting Time 228 sec (74-137)
--- NOTE | 2024-09-29 14:00 | EKG12_ITS ---
Test Reason : PCI Blood Pressure : */* mmHG Vent. Rate : 53 BPM Atrial Rate : 53 BPM P-R Int : 196 ms QRS Dur : 94 ms QT Int : 420 ms P-R-T Axes : 25 -19 23 degrees QTcB Int : 394 ms Sinus bradycardia Inferior infarct (cited on or before 06-May-2019) Abnormal ECG When compared with ECG of 09-Apr-2023 12:41, No significant change was found Confirmed by ARIS AMOR, DAVID ([id number]), editor book POP SALGADO ([id number]) on 10/04/2024 6:57:11 AM Referred By: Oanh Mena Confirmed By: DAVID HURST MD
[2024-09-29] MEDS: 0.9% Normal Saline (1000mL) 1,000 ML 150 ML IV (14:47)
[2024-09-29] MEDS: Acetaminophen 325 MG Tablet 650 MG PO ×2 (14:47→21:32)
[2024-09-29] MEDS: 0.9% Saline Lock 10 ML Syringe IV (14:47)
--- NOTE | 2024-09-29 14:57 | CRPHASE1_ITS ---
Patient Communication Patient Information Former Patient:: Phase I PHII Cardiac Rehab Discussed with Patient:: Yes Guide to Cardiac Rehab Given to Patient:: Yes Cardiac Rehab Facility Choice List Given to Patient:: Yes Communication to Cardiac Rehab Choice Program [facility] CR PHII:: Communication Given to CR Antique Clock Repairer:: Oanh Mena Cardiac Rehabilitation Info Program Information Cardiac Rehabilitation Program Information: Cardiac Rehab The cardiac rehab team at [facility] consists of highly skilled exercise physiologists, nurses, respiratory therapists and physicians working together with you. Our purpose is to help you have a full recovery and achieve the goals you set for yourself. Over the years many of our patients have returned to activities they assumed they would never do again! We can help restore your confidence and motivation to make lifestyle changes that can have a significant impact on your health and quality of life! We can help answer questions and concerns you may have about exercise, lifestyle, medications, diet, stress and anxiety which are common following a hospitalization. WE monitor ECG and vital signs during exercise and discuss your progress with you and report to your physician(s). Cardiac Rehab is proven to help reduce readmissions, improve functional capacity and lower recurrence of problems with your heart. Our Cardiac Rehab program is Certified by the [place] [employer] of Cardio-Vascular and Pulmonary Rehabilitation (AACVPR) and Accredited by the [place] [employer] of [employer] through our [facility]. You can contact us at . We invite you to call us with your questions or to get started in our program. If you have other questions or concerns be sure to ask your physician/provider during your follow-up visit. WE look forward to seeing you!
--- NOTE | 2024-09-29 14:57 | CRPH1.INSTRU ---
General Education Discussed with Patient CAD and cardiac anatomy and function:: Patient communicates acknowledgment Explanation of diagnoses and procedures:: Patient communicates acknowledgment Sign/Symptoms of [place]:: Patient communicates acknowledgment Antiplatelet therapy: Patient communicates acknowledgment Proper use of NTG-SL: Patient communicates acknowledgment Emergency procedures and activation of EMS: Patient communicates acknowledgment Compliance of all prescribed medications: Patient communicates acknowledgment Smoking Risk Factors Patient Nicotine/Smoking Risk Factors Are:: Non-smoker Recommendations Recommendations Include:: Second-hand smoke recommendation Response Code Nicotine/Smoking Response Code:: Patient communicates acknowledgment Dyslipidemia Recommendations Recommendations Include:: Lipid profile not available Response Code Dyslipidemia Response Code:: Patient communicates acknowledgment Overweight/Obesity Risk Factors Patient Overweight/Obesity Risk Factors Are:: BMI Normal [24-29 & > 65 years old] Response Code Overweight/Obesity:: Patient communicates acknowledgment Hypertension Recommendations Recommendations Include:: Maintain BP <130/85 Response Code Hypertension:: Patient communicates acknowledgment Heart Disease Recommendations Recommendations Include:: Educated family members of their risk Response Code Heart Disease Response Code:: Patient communicates acknowledgment Diabetes Risk Factors Patient Diabetes Risk Factors Are:: No documented hx of diabetes Response Code Diabetes:: Patient communicates acknowledgment Metabolic Syndrome Recommendations Recommendations Include:: Does not meet criteria Response Code Metabolic Syndrome Response Code:: Patient communicates acknowledgment Sedentary Recommendations Recommendations Include:: Monitored Outpatient Cardiac Rehab Response Code Sedentary Response Code:: Patient communicates acknowledgment Stress Recommendations Recommendations Include:: Identification of stressors, and assessment of coping skills and Stress management techniques Response Code Stress Response Code:: Patient communicates acknowledgment
[2024-09-29] MEDS: Clopidogrel Bisulfate 300 MG Tablet PO (18:03)
[2024-09-29] MEDS: tiZANidine HCl 2 MG Tablet 4 MG PO (18:03)
[2024-09-29] MEDS: APIXABAN 5 MG TABLET PO (21:25)
[2024-09-29] MEDS: Verapamil SR 180 MG CAPSULE PO (21:26)
[2024-09-29] MEDS: Atorvastatin Calcium 10 MG Tablet PO (21:32)
[2024-09-30 03:00] VITALS: PULSE 72
[2024-09-30 03:05] VITALS: BP 123/57; PULSE 56; RESP 14; TEMP 36.6; O2SAT 99
[2024-09-30 03:12] VITALS: PULSE 72
[2024-09-30 03:41] VITALS: BMI 26.3
[2024-09-30 05:10] LABS: Hematocrit 39.2 % (40-54); Hemoglobin 13.2 g/dL (13.0-16.5); Mean Corp Hgb Conc 33.7 g/dL (32-36); Mean Corpuscular Hgb 30.7 pg (27.0-32.0); Mean Corpuscular Volume 91.2 fL (80-94); Mean Platelet Vol. 9.7 fl (6.2-12.0); Platelet Count 242 K/mm3 (150-450); RBC Distribution Width CV 13.5 % (11.6-14.6); RBC Distribution Width SD 45.1 fl (35.1-43.9); White Blood Count 8.2 K/mm3 (4.4-11.0)
[2024-09-30 05:52] LABS: ALB/GLOB Ratio 1.6 RATIO (0.9-2.4); AST(SGOT) 23 U/L (<=37); Alanine Aminotransfer ALT/SGPT 19 U/L (<=46); Albumin, Serum 3.6 g/dL (3.4-4.8); Alkaline Phosphatase 46 U/L (40-129); Anion Gap 11 (5-15); BUN 12 mg/dL (4-19); BUN/Creat Ratio 17.3 RATIO (10-20); Calcium,Total 8.7 mg/dL (7.6-11.0); Carbon Dioxide 20.4 mmol/L (21.0-32.0); Chloride 109 mmol/L (98-108); Creatinine, Serum 0.67 mg/dL (0.70-1.20); EST Glomerular Filtration Rate 100 (>60); Estimated Creatinine Clearance 84.69 ml/min (50-250); Globulin 2.3 g/dL (2.2-4.2); Glucose 160 mg/dL (70-99); Potassium 3.9 mmol/L (3.3-5.1); Protein, Total 5.9 g/dL (5.9-8.4); Sodium Level 140 mmol/L (133-145); Total Bilirubin 0.31 mg/dL (0.00-1.30)
[2024-09-30 07:00] VITALS: PULSE 53
[2024-09-30 07:52] VITALS: O2SAT 98
[2024-09-30 08:31] VITALS: BP 128/71; PULSE 67; RESP 16; TEMP 36.3; O2SAT 100
[2024-09-30] MEDS: Clopidogrel Bisulfate 75 MG Tablet PO (08:38)
[2024-09-30] MEDS: Pantoprazole Sodium 40 MG Tablet PO (08:38)
[2024-09-30] MEDS: APIXABAN 5 MG TABLET PO (08:38)
[2024-09-30] MEDS: Multivitamins,Ther W-Minerals Tablet 1 TABLET PO (08:38)
--- NOTE | 2024-09-30 09:55 | CASEMGMT ---
Patient has order for discharge. RN CM in to discuss needs at discharge. Patient denies needs or help at discharge. Patient had no further questions or concerns.
--- NOTE | 2024-09-30 10:53 | PHA.DC.MC.R ---
Pharmacy [facility] Counseling Pharmacy Service has performed discharge medication reconciliation and counseling for this patient. 1. CLOPIDOGREL 75MG PO DAILY] 2. STOP ASPIRIN (ALSO ON ELIQUIS) The patient's discharge medication list was reviewed for discrepancies and discrepancies were resolved. The patient was counseled on the following discharge medications and changes in medications for homegoing were reviewed. The Reason for Use, instructions for use, and potential side effects were reviewed for all new medications. The patient's questions regarding all of their medications were answered. The patient was able to verbally demonstrate an understanding of their discharge medications. Medications at Discharge Home Medications pantoprazole 40 mg tablet,delayed release 40 mg PO DAILY reflux 08/08/13 albuterol sulfate 90 mcg/actuation aerosol inhaler 2 puff inhalation Q4H PRN PRN Sob &/Or Wheezing 04/01/16 apixaban 5 mg tablet (Eliquis) 5 mg PO BID blood thinner 10/01/18 nitroglycerin 0.4 mg sublingual tablet 0.4 mg sublingual Q5-15M chest pain 10/26/18 verapamil 180 mg 24 hr capsule,extended release 180 mg PO QHS blood pressure 10/26/18 multivitamin with minerals 1 tab PO DAILY supplement 05/06/19 epinephrine 0.3 mg/0.3 mL injection, auto-injector 0.3 mg IM ONCE PRN ALLERGY 11/01/19 meclizine 25 mg tablet 25 mg PO TID PRN PRN dizziness, vertigo #30 tabs 02/24/20 tizanidine 4 mg capsule 4 mg PO Q8H PRN MUSCLE RELAXANT 10/18/21 rosuvastatin 10 mg tablet 5 mg PO QHS cholesterol 04/06/23 acetaminophen 325 mg tablet 650 mg (2 x 325 mg) PO Q4H PRN PRN Pain 1-10 Or Fever #0 tabs 04/09/23 clopidogrel 75 mg tablet 75 mg PO DAILY #30 tabs 09/29/24
== END 2024-09-30 11:32 | disposition home or self-care (01) ==
LOC: CLSP 13:54 → PCU 14:10
PROVIDERS: Nurse Practitioner Family; Admitting Provider Internal Medicine Cardiovascular Disease; PCP Family Medicine; Referring Provider Internal Medicine Cardiovascular Disease; Visit Provider Internal Medicine Cardiovascular Disease
DX: I25.119 Atherosclerotic heart disease of native coronary artery with unspecified angina pectoris (principal); I42.8 Other cardiomyopathies; E11.9 Type 2 diabetes mellitus without complications; E78.5 Hyperlipidemia, unspecified; I10 Essential (primary) hypertension; R60.0 Localized edema; R06.02 Shortness of breath; Z79.899 Other long term (current) drug therapy; Z79.01 Long term (current) use of anticoagulants
CPT/HCPCS: 36415; 71046; 80048; 80053; 85025; 85027; 85347; 85610; 92928; 93005; 93454; 94762; 96360; 96361; 99152; 99153; 99221; C1769; Q9967; A4216; C1725; C1874; C1887; C1894; C9600; G0378

== ENCOUNTER 2024-11-01 11:19 | Observation (INO) | payer MEDICARE, SELFPAY ==
[2024-10-26 12:18] LABS: Absolute Lymphocyte Count 1.69 X10^3/uL (0.83-4.51); Absolute Neutrophil Count 4.6 X10^3/uL (2.0-7.7); Basophil# 0.05 X10^3/uL; Basophil% 0.7 % (0-1); Eosinophil# 0.18 X10^3/uL; Eosinophils% 2.4 % (0-5); Hematocrit 41.6 % (40-54); Lymphocyte # 1.69 X10^3/ul (0.83-4.51); Lymphocyte % 22.8 % (19-41); Mean Corp Hgb Conc 33.7 g/dL (32-36); Mean Corpuscular Hgb 30.1 pg (27.0-32.0); Mean Corpuscular Volume 89.5 fL (80-94); Mean Platelet Vol. 9.4 fl (6.2-12.0); Monocyte# 0.84 X10^3/uL; Monocyte% 11.3 % (0-10); NRBC Flagged by Analyzer 0 % (0-5); Neutrophil # 4.59 X10^3/uL (2.7-7.7); Platelet Count 272 K/mm3 (150-450); RBC Distribution Width CV 13.3 % (11.6-14.6); RBC Distribution Width SD 43.4 fl (35.1-43.9); Red Blood Count 4.65 M/mm3 (4.6-6.2); White Blood Count 7.4 K/mm3 (4.4-11.0)
[2024-10-26 12:25] LABS: International Normalized Ratio 1.2; Prothrombin Time (Protime)PT. 15.5 SECONDS (11.7-14.9)
[2024-10-26 13:02] LABS: Anion Gap 10 (5-15); BUN 12 mg/dL (4-19); BUN/Creat Ratio 15.8 RATIO (10-20); Calcium,Total 9.2 mg/dL (7.6-11.0); Carbon Dioxide 25.6 mmol/L (21.0-32.0); Chloride 104 mmol/L (98-108); Creatinine, Serum 0.77 mg/dL (0.70-1.20); EST Glomerular Filtration Rate 96 (>60); Glucose 139 mg/dL (70-99); Potassium 4.4 mmol/L (3.3-5.1); Sodium Level 139 mmol/L (133-145)
[2024-10-31 11:15] VITALS: BMI 26.2
[2024-11-01] VITALS (9 sets, daily range): BP systolic 117–130; BP diastolic 66–70; PULSE 62–69; RESP 12–18; TEMP 36.4–37; O2SAT 94–97; BMI 26.4
--- NOTE | 2024-11-01 11:23 | PCM.DC ---
Discharge Instructions Diet Discharge Diet: Low fat / Low cholesterol DC O2, CPAP, BIPAP needs Home O2 Discharge instructions: No Dressing / Incision Discharge Activity: Return to Normal Activity May resume sexual activity in: No Restrictions Dressing / Incision Call your doctor if your incision/area has: Continuous Slow Oozing, Sudden Increased Bleeding, Increased Pain/ Swelling, Increased Redness, Foul Smelling Discharge and Swelling at the incision site Call your doctor if you observe: Fever of 101 or Higher, Coldness, Increased Pain, Numbness or Tingling and Change in Color Follow Up Care Please Follow Up With: Oanh Mena MD When: 2-4 weeks Test Results: Test results from this visit will be discussed in further detail at your follow-up appointment, if applicable. Discharge Plan Admission Attending Provider: Oanh Mena Primary Care Provider: Jordan Zepeda Instructions Print Language: Luxem[place]ish Discharge Orders/Prescriptions Prescriptions: No Action verapamil 180 mg capsule,ext rel. pellets 24 hr 180 mg PO QHS nitroglycerin 0.4 mg tablet, sublingual 0.4 mg SUBLINGUAL Q5-15M epinephrine 0.3 mg/0.3 mL auto-injector 0.3 mg IM ONCE PRN (Reason: ALLERGY) Rx Instructions: as a single dose tizanidine 4 mg capsule 4 mg PO Q8H PRN (Reason: MUSCLE RELAXANT) pantoprazole 40 MG tablet 40 mg PO DAILY Patient Comments: acid reflux albuterol sulfate 1 PUFF inhaler 2 puff INHALATION Q4H PRN PRN (Reason: Sob &/Or Wheezing) Patient Comments: Shortness of breath Eliquis 5 MG tablet 5 mg PO BID multivitamin with minerals 1 EACH tablet 1 tab PO DAILY meclizine 25 MG tablet 25 mg PO TID PRN PRN (Reason: dizziness, vertigo) Qty: 30 0RF acetaminophen 325 mg Tablet 650 mg PO Q4H PRN PRN (Reason: Pain 1-10 Or Fever) Qty: 0 0RF clopidogrel 75 mg Tablet 75 mg PO DAILY Qty: 30 6RF rosuvastatin 10 mg tablet 10 mg PO QDAY Qty: 90 3RF isosorbide mononitrate 30 mg tablet extended release 24 hr 30 mg PO QAM Qty: 90 3RF Referrals / Follow Up: Jordan Zepeda MD [Primary Care Provider] - Disposition Disposition (needs filled in before D/C Order can be placed): Home, Self Care
[2024-11-01] MEDS: 0.9% Normal Saline (1000mL) 1,000 ML 150 ML IV (13:55)
[2024-11-01] MEDS: Acetaminophen 325 MG Tablet 650 MG PO (14:03)
--- NOTE | 2024-11-01 14:04 | CRPHASE1 ---
Patient Communication Patient Information Former Patient:: Phase I PHII Cardiac Rehab Discussed with Patient:: Yes Guide to Cardiac Rehab Given to Patient:: Yes Cardiac Rehab Facility Choice List Given to Patient:: Yes Communication to Cardiac Rehab Choice Program [facility] CR PHII:: Communication Given to CR and Refer to [facility] Choice Program Other:: Communication Given to CR Furnace Repair Mechanic:: Oanh Mena PCP:: Jordan Zepeda Phase II Cardiac Rehab:: Yes Sessions:: 36 sessions - 3 days/wk, 12 weeks Post Discharge Choice Letter Given to Patient:: Yes (post laboratory sampler ) Phase I Charge:: Level I - Education Medical/Surgical History Medical History Angina:: Yes CAD:: Yes Valve Disease/Replacement:: Yes Pulmonary:: Yes Hypertension:: Yes Dyslipidemia:: Yes CVA/TIA: DVT:: Yes PVD:: Yes GI:: Yes Surgical History PTCA:: Yes Ambulation Ambulation Notes:: independent Cardiac Rehabilitation Info Program Information Cardiac Rehabilitation Program Information: Cardiac Rehab The cardiac rehab team at [facility] consists of highly skilled exercise physiologists, nurses, respiratory therapists and physicians working together with you. Our purpose is to help you have a full recovery and achieve the goals you set for yourself. Over the years many of our patients have returned to activities they assumed they would never do again! We can help restore your confidence and motivation to make lifestyle changes that can have a significant impact on your health and quality of life! We can help answer questions and concerns you may have about exercise, lifestyle, medications, diet, stress and anxiety which are common following a hospitalization. WE monitor ECG and vital signs during exercise and discuss your progress with you and report to your physician(s). Cardiac Rehab is proven to help reduce readmissions, improve functional capacity and lower recurrence of problems with your heart. Our Cardiac Rehab program is Certified by the [place] [employer]io-Vascular and Pulmonary Rehabilitation (AACVPR) and Accredited by the [place] [employer] through our [facility]. You can contact us at . We invite you to call us with your questions or to get started in our program. If you have other questions or concerns be sure to ask your physician/provider during your follow-up visit. WE look forward to seeing you!
--- NOTE | 2024-11-01 14:04 | CRPHASE1 ---
Patient Communication Patient Information Former Patient:: Phase I PHII Cardiac Rehab Discussed with Patient:: Yes Guide to Cardiac Rehab Given to Patient:: Yes Cardiac Rehab Facility Choice List Given to Patient:: Yes Communication to Cardiac Rehab Choice Program [facility] CR PHII:: Communication Given to CR and Refer to [facility] Choice Program Other:: Communication Given to CR Agency Development Manager:: Oanh Mena PCP:: Jordan Zepeda Phase II Cardiac Rehab:: Yes Sessions:: 36 sessions - 3 days/wk, 12 weeks Post Discharge Choice Letter Given to Patient:: Yes (post label rewinder ) Phase I Charge:: Level I - Education Medical/Surgical History Medical History Angina:: Yes CAD:: Yes Valve Disease/Replacement:: Yes Pulmonary:: Yes Hypertension:: Yes Dyslipidemia:: Yes CVA/TIA: DVT:: Yes PVD:: Yes GI:: Yes Surgical History PTCA:: Yes Ambulation Ambulation Notes:: independent Cardiac Rehabilitation Info Program Information Cardiac Rehabilitation Program Information: Cardiac Rehab The cardiac rehab team at [facility] consists of highly skilled exercise physiologists, nurses, respiratory therapists and physicians working together with you. Our purpose is to help you have a full recovery and achieve the goals you set for yourself. Over the years many of our patients have returned to activities they assumed they would never do again! We can help restore your confidence and motivation to make lifestyle changes that can have a significant impact on your health and quality of life! We can help answer questions and concerns you may have about exercise, lifestyle, medications, diet, stress and anxiety which are common following a hospitalization. WE monitor ECG and vital signs during exercise and discuss your progress with you and report to your physician(s). Cardiac Rehab is proven to help reduce readmissions, improve functional capacity and lower recurrence of problems with your heart. Our Cardiac Rehab program is Certified by the [place] [employer] Cardio-Vascular and Pulmonary Rehabilitation (AACVPR) and Accredited by the [place] [employer] through our [facility]. You can contact us at . We invite you to call us with your questions or to get started in our program. If you have other questions or concerns be sure to ask your physician/provider during your follow-up visit. WE look forward to seeing you!
--- NOTE | 2024-11-01 14:06 | CRPH1.INSTRU ---
General Education Discussed with Patient CAD and cardiac anatomy and function:: Patient communicates acknowledgment and Family communicates acknowledgment Explanation of diagnoses and procedures:: Patient communicates acknowledgment and Family communicates acknowledgment Sign/Symptoms of LA:: Patient communicates acknowledgment Antiplatelet therapy: Patient communicates acknowledgment Proper use of NTG-SL: Patient communicates acknowledgment Emergency procedures and activation of EMS: Patient communicates acknowledgment Compliance of all prescribed medications: Patient communicates acknowledgment and Family communicates acknowledgment Smoking Risk Factors Patient Nicotine/Smoking Risk Factors Are:: Never smoked Response Code Nicotine/Smoking Response Code:: Patient communicates acknowledgment Dyslipidemia Recommendations Recommendations Include:: Therapeutic Lifestyle Change dietary guidelines Response Code Dyslipidemia Response Code:: Patient communicates acknowledgment Overweight/Obesity Risk Factors Patient Overweight/Obesity Risk Factors Are:: BMI Normal [24-29 & > 65 years old] (26.5) Recommendations Recommendations Include:: Weight loss of 5-10%, Reduced calorie diet and Exercise 5-7 times/week Response Code Overweight/Obesity:: Patient communicates acknowledgment Hypertension Recommendations Recommendations Include:: Maintain BP <130/85, DASH dietary guidelines and Decrease/maintain normal body weight Response Code Hypertension:: Patient communicates acknowledgment and Family communicates acknowledgment Heart Disease Risk Factors Patient Heart Disease Risk Factors Are:: Family history of heart disease < 65 years old and Previous cardiac event Recommendations Recommendations Include:: Educated family members of their risk and Educated family members of importance of prevention of heart disease Response Code Heart Disease Response Code:: Patient communicates acknowledgment and Family communicates acknowledgment Metabolic Syndrome Risk Factors Patient Metabolic Syndrome Risk Factors Are [3 of 5]:: Hypertension Recommendations Recommendations Include:: Encouraged follow-up with Primary Care Physician Response Code Metabolic Syndrome Response Code:: Patient communicates acknowledgment Sedentary Risk Factors Patient Sedentary Risk Factors Are:: Lack of regular exercise Recommendations Recommendations Include:: Aerobic exercise 5-7 times/week for 20-30 minutes continuously, Benefits of regular exercise, Discussed home walking program and Monitored Outpatient Cardiac Rehab Response Code Sedentary Response Code:: Patient communicates acknowledgment and Family communicates acknowledgment Stress Risk Factors Patient Stress Risk Factors Are:: Patient denies stress as a risk factor
[2024-11-01] MEDS: Albuterol 2.5 MG/3 ML VIAL.NEB. INHALATION (19:36)
[2024-11-01] MEDS: Atorvastatin Calcium 20 MG Tablet PO (21:13)
[2024-11-01] MEDS: Verapamil SR 180 MG CAPSULE PO (21:13)
[2024-11-01] MEDS: APIXABAN 5 MG TABLET PO (21:13)
--- NOTE | 2024-11-01 23:57 | CPS ---
Pt stated that he wear CPAP at home but lately it has been hurting him, so he preferred 2L nasal O2 for night time use only.
--- NOTE | 2024-11-01 23:57 | CPS ---
Pt stated that he wear CPAP at home but lately it has been hurting him, so he preferred 2L nasal O2 for night time use only.
[2024-11-02 03:00] VITALS: PULSE 58
[2024-11-02] MEDS: Acetaminophen 325 MG Tablet 650 MG PO (03:20)
[2024-11-02 03:21] VITALS: BP 135/76; PULSE 69; RESP 18; TEMP 36.7; O2SAT 95
[2024-11-02 04:03] LABS: Hemoglobin 13.3 g/dL (13.0-16.5); Mean Corp Hgb Conc 34.1 g/dL (32-36); Mean Corpuscular Hgb 30.5 pg (27.0-32.0); Mean Corpuscular Volume 89.4 fL (80-94); Mean Platelet Vol. 9.5 fl (6.2-12.0); Platelet Count 202 K/mm3 (150-450); RBC Distribution Width CV 13.2 % (11.6-14.6); RBC Distribution Width SD 43.6 fl (35.1-43.9); Red Blood Count 4.36 M/mm3 (4.6-6.2); White Blood Count 7.3 K/mm3 (4.4-11.0)
[2024-11-02 04:41] LABS: ALB/GLOB Ratio 1.5 RATIO (0.9-2.4); AST(SGOT) 32 U/L (<=37); Alanine Aminotransfer ALT/SGPT 29 U/L (<=46); Albumin, Serum 3.7 g/dL (3.4-4.8); Alkaline Phosphatase 58 U/L (40-129); Anion Gap 11 (5-15); BUN 11 mg/dL (4-19); BUN/Creat Ratio 13.9 RATIO (10-20); Calcium,Total 9.3 mg/dL (7.6-11.0); Carbon Dioxide 23.3 mmol/L (21.0-32.0); Chloride 105 mmol/L (98-108); Creatinine, Serum 0.78 mg/dL (0.70-1.20); EST Glomerular Filtration Rate 95 (>60); Estimated Creatinine Clearance 84.69 ml/min (50-250); Globulin 2.5 g/dL (2.2-4.2); Glucose 162 mg/dL (70-99); Potassium 4.3 mmol/L (3.3-5.1); Protein, Total 6.2 g/dL (5.9-8.4); Sodium Level 139 mmol/L (133-145); Total Bilirubin 0.57 mg/dL (0.00-1.30)
[2024-11-02 06:00] VITALS: BMI 26.6
[2024-11-02 07:42] VITALS: O2SAT 94
[2024-11-02] MEDS: Clopidogrel Bisulfate 75 MG Tablet PO (08:37)
[2024-11-02] MEDS: Multivitamins,Ther W-Minerals Tablet 1 TABLET PO (08:37)
[2024-11-02] MEDS: Pantoprazole Sodium 40 MG Tablet PO (08:37)
[2024-11-02] MEDS: APIXABAN 5 MG TABLET PO (08:37)
[2024-11-02] MEDS: Isosorbide Mononitrate 30 MG Tablet PO (08:37)
[2024-11-02 08:42] VITALS: BP 123/56; PULSE 62; RESP 14; TEMP 36.4; O2SAT 99
--- NOTE | 2024-11-02 11:08 | CASEMGMT ---
Patient has order for discharge. RN CM in to discuss needs at discharge. Patient denies needs or help at discharge. Patient had no further questions or concerns.
[2024-11-02 11:24] VITALS: BP 119/68; PULSE 68; RESP 18; TEMP 36.6; O2SAT 97
[2024-11-02 17:29] LABS: ACT Activated Clotting Time 199 sec (74-137)
--- NOTE | 2024-12-19 09:45 | CL.I_ITS ---
Patient Name: PARVEZ ROGERS Study Date: 11/01/2024 Performing: Oanh Mena MD Ht: 69 inches 175.26 cm : 1955 Wt: 178.2 lbs 80.74 kg Age: 69 Gender: male BSA: 1.97 PROCEDURE(S) PERFORMED IC12-(87886/C9600)EMERITA W/WO PTCA, SINGLE CORONARY ARTERY IC13-([id number]/C9600)EMERITA W/WO PTCA, EACH ADD'L ART, SAME MAJOR CLINICAL PROFILE AND CO-MORBIDITIES Indications: Staged PCI Heart Failure: None CONCLUSIONS Successful EMERITA Prox RPDA using [place] 2.5x18 mm Successful EMERITA Prox RCA using [place] 3.5x30 mm RECOMMENDATIONS ASA Indefinitley P2Y12 inhibitors for atleast 6 months DESCRIPTION OF PROCEDURE The patient arrived to the procedure lab. The risks and benefits of the procedure as well as a full description of our services here and current unavailability of surgical backup were fully explained to the patient and/or their significant other prior to the catheterization. The Timeout was completed, verifying the correct patient and procedure. The patient's procedural site was prepped and draped in the usual fashion. Local anesthetic was given subcutaneously to right radial region with Lidocaine 2%. Using a modified Seldinger technique, arterial access was obtained via the right radial artery, a 6Fr sheath was inserted.. The images were reviewed and options discussed. A decision was then made to proceed with an Intervention, IVUS or other adjunct procedure. JR 4 Guide catheter was inserted and engaged into the RCA. Runthrough Guide wire was advanced to the RCA. 2.5x18 [place] Drug Eluting stent was inserted. Drug Eluting stent was advanced across the lesion in the posterior descending, proximal. Angiogram performed post stent deployment. 2.5x15 [place] Emerge Balloon catheter was inserted. Balloon catheter was inserted post stent. 3.5x30 [place] Drug Eluting stent was inserted. Drug Eluting stent was advanced across the lesion in the right coronary, proximal. Angiogram performed post stent deployment. 3.5x20 NC Emerge Balloon catheter was inserted. Balloon catheter was inserted post stent. Angiogram performed post balloon dilatation. The arterial sheath was pulled and a TR Band was applied for hemostasis. 12cc of air INTERVENTION INFORMATION LESION SITE: RT PDA (Proximal) Lesion Complexity: Non-High/Non-C, lesion length: 16 mm Pre Stenosis: 70% % Pre intervention BARRY flow: 3 PROCEDURE: Drug Eluting Stent with post dilatation Post Stenosis: 0 % Post intervention BARRY flow: 3 Lesion Devices: Cordis 6 Fr JR4 100cm Guide Catheter Terumo .014 180cm Runthrough Extra Floppy straight Medtronic 2.50 x 18 ELKIN FRONTIER EMERITA Devan Sci NC EMERGE MR 2.50x15 BALLOON LESION SITE: RCA (Proximal) Lesion Complexity: High/C, lesion length: 28 mm Pre Stenosis: 80 % Pre intervention BARRY flow: 3 PROCEDURE: Drug Eluting Stent with post dilatation Post Stenosis: 0 % Post intervention BARRY flow: 3 Lesion Devices: Cordis 6 Fr JR4 100cm Guide Catheter Terumo .014 180cm Runthrough Extra Floppy straight Medtronic 3.5 x 30 ELKIN FRONTIER EMERITA Devan Sci NC EMERGE MR 3.50x20 BALLOON COMPLICATIONS No Complications PROCEDURE MEDICATIONS Fentanyl 50 mcg IV Versed 1 mg IV Fentanyl 50 mcg IV Oxygen: 2 L/min via nasal cannula Heparin given IA 11/01/2024 10:38:00 Heparin 5000 unit(s) IV 11/01/2024 10:47:46 Heparin 2000 unit(s) IV 11/01/2024 10:59:02 Heparin 3000 unit(s) IV 11/01/2024 11:20:46 Nitro 200 mcg IC 11/01/2024 10:55:02 Nitro 200 mcg IC 11/01/2024 10:55:02 Plavix 300 mg PO 11/01/2024 11:15:17 Verapamil 2.5mg, Ntg 200mcgs, 2000 units of Heparin given IA 11/01/2024 10:38:00 SUMMARY OF HEMODYNAMIC DATA Time AIR REST ECG 08:48:07 AO 119/73 (95) SA 10:48:27 Signed By Oanh Mena MD On 11/04/2024 16:21:29 Oanh Mena MD
--- NOTE | 2024-12-19 09:45 | CL.I_ITS ---
Patient Name: PARVEZ ROGERS Study Date: 11/01/2024 Performing: Oanh Mena MD Ht: 69 inches 175.26 cm : 1955 Wt: 178.2 lbs 80.74 kg Age: 69 Gender: male BSA: 1.97 PROCEDURE(S) PERFORMED IC12-(66715/C9600)EMERITA W/WO PTCA, SINGLE CORONARY ARTERY IC13-([id number]/[id number])EMERITA W/WO PTCA, EACH ADD'L ART, SAME MAJOR CLINICAL PROFILE AND CO-MORBIDITIES Indications: Staged PCI Heart Failure: None CONCLUSIONS Successful EMERITA Prox RPDA using [place] 2.5x18 mm Successful EMERITA Prox RCA using [place] 3.5x30 mm RECOMMENDATIONS ASA Indefinitley P2Y12 inhibitors for atleast 6 months DESCRIPTION OF PROCEDURE The patient arrived to the procedure lab. The risks and benefits of the procedure as well as a full description of our services here and current unavailability of surgical backup were fully explained to the patient and/or their significant other prior to the catheterization. The Timeout was completed, verifying the correct patient and procedure. The patient's procedural site was prepped and draped in the usual fashion. Local anesthetic was given subcutaneously to right radial region with Lidocaine 2%. Using a modified Seldinger technique, arterial access was obtained via the right radial artery, a 6Fr sheath was inserted.. The images were reviewed and options discussed. A decision was then made to proceed with an Intervention, IVUS or other adjunct procedure. JR 4 Guide catheter was inserted and engaged into the RCA. Runthrough Guide wire was advanced to the RCA. 2.5x18 [place] Drug Eluting stent was inserted. Drug Eluting stent was advanced across the lesion in the posterior descending, proximal. Angiogram performed post stent deployment. 2.5x15 NC Emerge Balloon catheter was inserted. Balloon catheter was inserted post stent. 3.5x30 [place] Drug Eluting stent was inserted. Drug Eluting stent was advanced across the lesion in the right coronary, proximal. Angiogram performed post stent deployment. 3.5x20 NC Emerge Balloon catheter was inserted. Balloon catheter was inserted post stent. Angiogram performed post balloon dilatation. The arterial sheath was pulled and a TR Band was applied for hemostasis. 12cc of air INTERVENTION INFORMATION LESION SITE: RT PDA (Proximal) Lesion Complexity: Non-High/Non-C, lesion length: 16 mm Pre Stenosis: 70% % Pre intervention BARRY flow: 3 PROCEDURE: Drug Eluting Stent with post dilatation Post Stenosis: 0 % Post intervention BARRY flow: 3 Lesion Devices: Cordis 6 Fr JR4 100cm Guide Catheter Terumo .014 180cm Runthrough Extra Floppy straight Medtronic 2.50 x 18 ELKIN FRONTIER EMERITA Devan Sci NC EMERGE MR 2.50x15 BALLOON LESION SITE: RCA (Proximal) Lesion Complexity: High/C, lesion length: 28 mm Pre Stenosis: 80 % Pre intervention BARRY flow: 3 PROCEDURE: Drug Eluting Stent with post dilatation Post Stenosis: 0 % Post intervention BARRY flow: 3 Lesion Devices: Cordis 6 Fr JR4 100cm Guide Catheter Terumo .014 180cm Runthrough Extra Floppy straight Medtronic 3.5 x 30 ELKIN FRONTIER EMERITA Devan Sci NC EMERGE MR 3.50x20 BALLOON COMPLICATIONS No Complications PROCEDURE MEDICATIONS Fentanyl 50 mcg IV Versed 1 mg IV Fentanyl 50 mcg IV Oxygen: 2 L/min via nasal cannula Heparin given IA 11/01/2024 10:38:00 Heparin 5000 unit(s) IV 11/01/2024 10:47:46 Heparin 2000 unit(s) IV 11/01/2024 10:59:02 Heparin 3000 unit(s) IV 11/01/2024 11:20:46 Nitro 200 mcg IC 11/01/2024 10:55:02 Nitro 200 mcg IC 11/01/2024 10:55:02 Plavix 300 mg PO 11/01/2024 11:15:17 Verapamil 2.5mg, Ntg 200mcgs, 2000 units of Heparin given IA 11/01/2024 10:38:00 SUMMARY OF HEMODYNAMIC DATA Time AIR REST ECG 08:48:07 AO 119/73 (95) SA 10:48:27 Signed By Oanh Mena MD On 11/04/2024 16:21:29 Oanh Mena MD
== END 2024-11-02 13:55 | disposition home or self-care (01) ==
LOC: CLSP 11:24 → PCU 12:21
PROVIDERS: Admitting Provider Internal Medicine Cardiovascular Disease; PCP Family Medicine; Referring Provider Internal Medicine Cardiovascular Disease; Visit Provider Internal Medicine Cardiovascular Disease
DX: I25.10 Atherosclerotic heart disease of native coronary artery without angina pectoris (principal); I42.8 Other cardiomyopathies; I10 Essential (primary) hypertension; E78.5 Hyperlipidemia, unspecified; Z86.718 Personal history of other venous thrombosis and embolism; Z79.01 Long term (current) use of anticoagulants; I35.0 Nonrheumatic aortic (valve) stenosis; Z79.899 Other long term (current) drug therapy; K21.9 Gastro-esophageal reflux disease without esophagitis; I25.2 Old myocardial infarction
CPT/HCPCS: 36415; 80048; 80053; 85025; 85027; 85347; 85610; 92928; 92929; 94640; 96360; 96361; 99152; 99153; 99221; C1769; Q9967; C1725; C1874; C1887; C1894; C9600; C9601; G0378

== ENCOUNTER → 2024-11-08 | Outpatient (CLI) | payer MEDICARE, SELFPAY ==
--- NOTE | 2024-11-08 12:00 | CR.HP_ITS ---
CR - History & Physical General Arrival date:: 11/08/24 Arrival time:: 12:00 Date of Referral:: 11/02/24 Date of CR Evaluation:: 11/08/24 Referring Physician: Dr. Mena Primary Diagnosis: PCI w/stenting History of Present Cardiac Event Onset Date PTCA or coronary stenting:: Yes (11/01/24 onset) Medications Ambulatory Orders ?Medication ?Instructions ?Recorded pantoprazole 40 mg tablet,delayed 40 mg PO DAILY reflu x 08/08/13 release albuterol sulfate 90 mcg/actuation 2 puff inhalation Q 4H PRN PRN Sob 04/01/16 aerosol inhaler &/Or Wheezing apixaban 5 mg tablet (Eliquis) 5 mg PO BID blood thinn er 10/01/18 nitroglycerin 0.4 mg sublingual 0.4 mg sublingual Q5-1 5M chest pain 10/26/18 tablet verapamil 180 mg 24 hr 180 mg PO QHS blood pressure 10/26/18 capsule,extended release multivitamin with minerals 1 tab PO DAILY supplement 1 07/07/18 epinephrine 0.3 mg/0.3 mL 0.3 mg IM ONCE PRN ALLERGY 0 11/01/19 injection, auto-injector meclizine 25 mg tablet 25 mg PO TID PRN PRN dizzine ss, 02/24/20 vertigo #30 tabs tizanidine 4 mg capsule 4 mg PO Q8H PRN MUSCLE RELAX ANT 10/18/21 acetaminophen 325 mg tablet 650 mg (2 x 325 mg) PO Q4H PRN PRN 04/09/23 Pain 1-10 Or Fever #0 tabs clopidogrel 75 mg tablet 75 mg PO DAILY anti platelet #30 09/29/24 tabs isosorbide mononitrate 30 mg 30 mg PO QAM awaiting beti l in RX 10/13/24 tablet,extended release 24 hr #90 tabs rosuvastatin 10 mg tablet 10 mg PO QDAY cholesterol #9 0 tabs 10/13/24 Allergies Allergies bee venom protein (honey bee) Allergy (Verified 10/13/24 10:00) Anaphylaxis cefadroxil hydrate (From Duricef) Allergy (Verified 10/13/24 10:00) Rash niacin (From Niaspan Extended-Release) Allergy (Verified 10/13/24 10:00) Rash azatadine Adverse Reaction (Verified 10/13/24 10:00) Other AFFECTS BP(FROM TRINALIN) pseudoephedrine Adverse Reaction (Verified 10/13/24 10:00) Other AFFECTS BP (FROM TRINALIN) Sleep Disorder Evaluation Hx of Sleep Apnea: Yes Do you snore loudly (louder than talking or can be heard through closed doors)?: No Do you often feel tired/ fatigued/ sleepy during daytime?: No Has anyone observed you stop breathing during sleep?: No History of Hypertension (for STOP score): Yes STOP Results: Negative Advanced Directives Advanced Directives Do you have a Healthcare Power of Director Of Laboratory Operations?: Yes Living Will: Yes Advance Directives Information Provided: No Advance Directives on File: No Past Medical History Covid-19 Screening Physicial Symptoms Other Clinical Concerns Exposure Risk Pertinent Comorbidities 65 years or older:: Yes Has a serious heart condition:: Yes Past Medical Illness Past Medical History (Updated 11/02/24 @ 08:23 by Angie Payton) Nonischemic cardiomyopathy I42.8 Reported in 2005. EF has since normalized. Wears dentures Z97.2 History of diverticulitis Z87.19 CAD (coronary artery disease) I25.10 Right inguinal hernia K40.90 Abnormal nuclear stress test R94.39 Atherosclerotic heart disease of [place] coronary artery without angina pectoris I25.10 Nonobstructive per cardiac cath 01/09/2020 Wears glasses Z97.3 Wears partial dentures Z97.2 Cancer C80.1 SKIN Depression F32.A Anxiety F41.9 Abrasion T14.8XXA KNEE Arthritis M19.90 HANDS Fatty liver K76.0 Easy bruising R23.3 Excessive bleeding R58 Restless legs G25.81 Vertigo R42 Gastric reflux K21.9 PER PT, CONTROLLED ON MEDS Sleep apnea G47.30 CPAP (continuous positive airway pressure) dependence Z99.89 Shortness of breath on exertion R06.02 DYSPNEA WITH 2 FLIGHTS OF STAIRS Non-smoker Z78.9 History of edema Z87.898 Leg cramps R25.2 History of echocardiogram Z92.89 07/17/2020 [facility]; TRANSTHORACIC ECHO 04/2022 AT [facility] Hypertension I10 History of heart attack I25.2 BEFORE 2001 Chest pain R07.9 STATES CP IS R/T ANXIETY, STATES PCP AWARE, UNABLE TO GET IN TO SEE CARDIOLOGY History of stress test Z92.89 05/08/2022 [facility] Cardiology follow-up encounter Z09 10/23/2022 MOST RECENT VISIT WITH [facility] Abdominal pain R10.9 Vertigo R42 Squamous cell carcinoma Elevated troponin I level (2005) R79.89 Nonobstructive atherosclerosis of coronary artery I25.10 Recurrent deep vein thrombosis (DVT) I82.409 Obstructive sleep apnea G47.33 Gastroesophageal reflux disease K21.9 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 Paroxysmal supraventricular tachycardia I47.1 Osteoarthritis M19.90 Insomnia G47.00 Carotid artery occlusion without infarction I65.29 right Diverticulitis K57.92 Type 2 diabetes mellitus without complication E11.9 Asthma J45.909 Myalgia M79.10 Facial paresthesia (07/2018) R20.9 Pericarditis I31.9 Migraines G43.909 History of GI bleed Z87.19 Hyperlipidemia E78.5 Essential hypertension I10 GI bleed K92.2 Past Surgical History Past Surgical History (Updated 11/02/24 @ 08:20 by Angie Payton) Stented coronary artery (11/01/24) Z95.5 [place] 2.50 X 18mm EMERITA to rPDA and [place] 3.5 X 30 mm EMERITA to proximal RCA 11/01/2024 History of robot-assisted repair of right inguinal hernia Z98.890, Z87.19 04/09/23 History of esophagogastroduodenoscopy (EGD) Z98.890 History of colonoscopy Z98.890 History of left heart catheterization (06/03/22) Z98.890 LEFT MAIN: Angiographically normal; LEFT ANTERIOR DESCENDING ARTERY: PROX LAD: Mild luminal irregularities; MID LAD: Mild luminal irregularities; CIRCUMFLEX ARTERY: PROX CIRC: Mild luminal irregularities MID CIRC: Mild luminal irregularities less than 30%; RIGHT CORONARY ARTERY: Mild luminal irregularities; PROX RCA: 50 % Stenosis RT PDA: Proximal - Mild luminal irregularities, Mid - Mild luminal irregularities per cardiac cath Dr. Torres 06/03/22; ;LEFT MAIN: Non- obstructive; LEFT ANTERIOR DESCENDING ARTERY: Mild luminal irregularities; CIRCUMFLEX ARTERY: Mild luminal irregularities; RIGHT CORONARY ARTERY: PROX RCA: 60 % Stenosis per cardiac cath Dr. Aldridge 01/09/20; 08/19/2011 History of left knee surgery Z98.890 History of inguinal hernia repair Z98.890, Z87.19 History of appendectomy Z90.49 Surgical History: appendectomy Family History Summary Family History Brother Cancer prostate Diabetes Father Cancer stomach CAD (coronary artery disease) Heart disease Hypertension Hearing loss Mother CAD (coronary artery disease) Diabetes Heart disease Hypertension CVA (cerebral vascular accident) Social History Smoking History Smoking Status: Never smoker Alcohol Use Alcohol Usage: No Substance Abuse Hx Substance Use: No Occupation Occupation (List type of work in comments):: Employed Hours worked per day:: 8 Social Environment Status Marital Status: Current Living Arrangements Living Environment:: Spouse Children How many children do you have?: 2 Do any of your children live nearby?: Yes Safety Do you feel safe in your surroundings?: Yes Assistance Do you need any assistance at home?: no Review of Systems Review of Systems Hints Review of Present Symptoms: Reports Shortness of Breath with Exertion, Dizziness/Lightheadedness, Fatigue, Appetite - Normal and Appetite - Special Diet; Denies Shortness of Breath at Rest, PVD, Operative Discomfort, Angina, Wound Healing, Heart Arrhythmia/Irregularities, Sleep - Normal or Sexual Changes Pain Is Patient Pain Free?: No Pain Location: upper extremity and lower extremity Pain Level: 5/10 Risk Factor Assessment Chief Complaint Chief Complaint: PCI w/stenting Vital Signs Pulse Ox: 98 Blood Pressure: 126/70 Pulse Pulse Rate: 74 Pulse Rhythm: Regular Hypertension How long have you been treated?: 2 years Blood Pressure Sitting - Right Arm: 126/70 Stress Stress: Recent and Home/Family Obesity Height: 5 ft 9 in Weight:: 178 lb Weight in Pounds: 178.0 lbs Body Mass Index (BMI): 26.2 Physical Inactivity Physical Inactivity: None Risk Stratification Risk Guidelines: Moderate Risk: Risk Factor for Smoking, Risk Factor for Diabetes, Risk Factor for Obesity, Risk Factor for Sedentary Lifestyle and Risk Factor for Depression and Highest Risk: Risk Factor for Dyslipidemia and Risk Factor for Hypertension For Smoking Smoking Risk Guidelines For Dyslipidemia Dyslipidemia Risk Guidelines For Diabetes Mellitus Diabetes Risk Guidelines For Obesity/Overweight Obesity/Overweight Risk Guidelines For Hypertension Hypertension Risk Guidelines For Sedentary Lifestyle Sedentary Lifestyle Risk Guidelines For Depression Depression Risk Guidelines Family History Family History Brother Cancer Diabetes Father Cancer CAD (coronary artery disease) Heart disease Hypertension Hearing loss Mother CAD (coronary artery disease) Diabetes Heart disease Hypertension CVA (cerebral vascular accident) Motivation Motivation to Participate On a scale of 1 to 10, how prepared are you to commit to attending program?: 6 What do you see as barriers to successfully being able to complete the program?: work What do you see as the benefits of succesfully completing the program? In other words, what do you hope to get out of participating in the program?: more energy Are there issues you are dealing with that will interfere with completing the program?: no Do you have a spouse or signficant other, family or friends who will help support you to complete the program?: yes
--- NOTE | 2024-11-08 12:06 | CR.ITP_ITS ---
Diagnosis General Information Admitting Diagnosis: PCI w/stenting Personal Learning Style:: Audio/Visual Barriers to Learning: No Barriers Stage of change r/t lifestyle modifications:: Contemplation Gave educational material for:: Treating Heart Disease, How The Heart Works, What it means to have Heart Disease, How Coronary Artery Disease is Diagnosed, Heart Procedures, What Heart Medications Do, Risk Factors & Modifications, Living an Active Life, Nutrition, Emotions & Heart Disease, Stress Management & Relaxation and Sleep Disorders & Heart Disease Education/Goals Cardiac Rehabilitation Goals Personal Goals: Initial Assessment: Improve energy level, Participate in home exercise program, Get back to work, or to resume activities faster, Improve knowledge of cardiac disease, Improve muscle strength and endurance, Improve diet and eating habits (eat healthier) and Control risk factors (learn risk factor modification) Scale for measuring improvement of personal goals Diagnosis & Disease Process Outcomes/Goals: Pt IDs own risk factors & lifestyle modifications by Session 10, Verbalizes symptoms of angina & response by session 3., Pt independently manages and Other Additional Outcomes/Goals: Plan/Interventions: Assist Pt to ID & engage in lifestyle modification to reduce CVD risk, Instruct on individual risk factors, Review symptoms of angina & emergency actions, Review secondary diagnosis & identify educational needs. and Other see comment 30 day Reassessments:: Not Met 30 day Reassessments:: Not Met 30 day Reassessments:: Not Met 30 day Reassessments:: Not Met Final Reassessments:: Not Met Safety Referral to Physical Therapy: No Referral to [facility] Case Management: No Fall Risk Assessed:: Yes Assistive Devices:: None Exercise - Initial Assessment Visit Date of Eval: 11/08/24 (initial eval ) Mets: Pre-: >3 METS for 30 minutes by discharge, >5 METS for 30 minutes by discharge, >7 METS for 30 minutes by discharge and Unable to meet goal due to: (see comment below) Physician Prescribed Exercise Modalities: Treadmill, Rower, Schwinn Airdyne AD-7, SciFit Stepper, SciFit Pro- II Ergometer and SciFit Lateral Insurance Claims Clerk Frequency: 3x/week for 12 weeks [36 sessions] Intensity: 60-80% of age predicted maximum heart rate reserve Duration: 30 - 45 minutes Current METSs:: 3 Target Heart Rate:: 89-112 Resting Blood Pressure: 126/70 EKG Type: SB Outcomes & Goals Goals:: Verbalizes understanding of THR, RPE & goal METS by session 6, Documents in home exercise log/reports 30 min aerobic 5 day/wk by DC, Demonstrates accurate pulse taking by DC and Other additional outcome/goals: see below Intervention & Plan Exercise Program Goals: Instruct on personal THR & RPE, Instruct on MET level & personal MET goal, Show patient to take own pulse /validate performance until accurate, Instruct on home exercise and Other additional plan/int Physical Activity Home Exercise Physical Activity - Home Exercise: Safe Exercise, Warm-up, Self-monitoring, Cool-Down, Home Exercise > 30 min Daily and Sitting Time <3 hours/daily Outcomes & Goals Outcomes/Goals: Demonstrates correct Warm-up/exercise Cool-Down (S3) if = 2.5 METs, Verbalizes symptoms of exercise intolerance by Session 3 (S3), Demonstrate safe equipment use (S3) & follows exercise prescrition (6) and Other: See below Intervention & Plan Plan/Intervention: Instruct warm-up & cool-down if exercising at > 2 METs, Instruct on symptoms of exercise intolerance & actions to take, Instruct & monitor on saf, Assess intial functional capacity & safety risk and Other See below Nutrition - Initial Assessment Program Goals Nutrition Program Goals Patient has diagnosis of Hyperlipidemia (ICD E78)?: Yes Visit Date of Eval: 11/08/24 (initial eval ) Cholesterol/Lipids (Other Core Measures) Determine presence & major risk factors that modify LDL goal: Hypertension or hypertensive medication, Low HDL cholesterol <40 mg/dL*, Family history of premature CHD in Male < 55 years: female <65 yearsFa and Age men > 45 years; women >/= 55 years Outcomes/Goals: Pt IDs own risk factors & lifestyle modifications by Session 10, Verbalizes symptoms of angina & response by session 3., Pt independently manages and Other Additional Outcomes/Goals: Intervention/Plan: Advocate for lipid panel cholesterol medication if applicable, Instruct on personal lipid levels & lipid goals/NCEP guidelines, Instruct on cholesterol and Other additional plan/int Referral to dietitian:: No Diabetes (Other Core Measures) Diabetes Type: Not Applicable Weight Mgt (Other Care) Height: 5 ft 9 in Weight:: 178 lb BMI: 26.2 Diagnosis Overweight/Obesity BMI> 30% ICD-10 E66: No Diagnosis High BMI/Morbid Obesity BMI> 35% ICD-10 Z68: No Outcomes/Goals: Pt sets, maintains & shows weight loss goal & trend during rehab and Other additional outcomes/goals Intervention/Plan: Instruct on ideal BMI & set weight loss goal w/patient, Assist pt to ID & incorporate diet changes for weight loss by S9, Refer to Structured Weight Loss program as appropriate, Encourage goal of using 250- 300dcal per session for weight loss and Other additional plan/interventions Healthy Eating Habits Will attend diet classes:: Yes Outcomes/Goals:: Consume diet rich in vegs,fruits,whole grain/high fiber,fish,lean meat, Limit sat/trans fats,cholesterol & added salts & sugars and Other additional outcome/goals: Intervention/Plan:: Assess current eating habits and Other Additional plan/interventions Education Gave educational materials for:: Signs & symptoms of hypoglycemia, Signs & symptoms of hyperglycemia, Relate diabetes to coronary artery disease and Healthy eating Core - Initial Assessment Visit Date of Eval: 11/08/24 (initial eval ) Medication Compliance Preventative Medication(s):: Clopidogrel/P2Y12 inhibit, Statin/lipid and Eliquis H/O mental health issues: depression, anxiety, or addiction?: No Doesn?t believe in the benefits of treatment?: No Believes medications are unnecessary or harmful?: No Has a concern about medication side effects?: No Expresses concern over the cost of medications?: No Outcomes/Goals: Verbalizes medications,desired effect & common side effects @ DC, Pt self-reports following medication regimen, Keeps card in wallet w/medications listed by DC and Other additional outcome/goals: Interventions/plans: Instruct on medication effects & side effects, Review medication list w/patient every two weeks, Instruct importance of taking meds as ordered & assist problem solving and Other additional Tobacco Use Tobacco Use: Non-smoker Hypertension Hypertension Diagnosis:: Hypertension ICD-10 I10 Resting Blood Pressure:: 126/70 [place] [employer] Hypertension Guidelines Outcomes/Goals: Able to verbalize/achieve optimal blood pressure <130/80, Incorporates diet changes & exercise for blood pressure control by DC and Other additional outcomes/goals Interventions/plan: Instruct on optimal blood pressure, hypertension & medications, Instruct on effects of sodium, alcohol, stress, exercise &hypertension and Other additional plan/interventions Tobacco Cessation Referral Smoking Cessation Referral:: No Individual Education/Counseling:: No Education Schedule Given:: Yes Psychosocial - Initial Assess VIsit Date of Eval: 11/08/24 (initial eval ) History of previous Mental disease:: No Target Goals Target Goals Psychosocial Test Tool Used:: PHQ-9 Questionnaire phq-9 Severity See PHQ-9 Score: 13 (declines counseling) Referral to Behavioral Health PS - Interventions: Yes: Attend Stress Management Classes Outcomes/Goals: See list Psychosocial Outcomes/Goals:: ID's personal stressors & 2 strategies to manage stress by discharge and Other Additional outcome/goals: Intervention/Plan: See List Interventions/Plan:: Assess stressors,coping strategies & signs of derpression on admission, Instruct/assist pt to develop coping & personal stress Mgt strategies, Refer to Behavioral Health if appropriate, Refer to Physician if appropriate, Instruct patient to recognize signs & symptoms of depression, Instruct patient to recog and Other additional plan/intervention Patient Health Questionnaire PHQ-9 Screening Initial Assessment: 1. Little interest or pleasure in doing things: More than half the days 2. Feeling down, depressed, or hopeless: Several days 3. Trouble falling or staying asleep, or sleeping too much: Nearly every day 4. Feeling tired or having little energy: Nearly every day 5. Poor appetite or overeating: More than half the days 6. Feeling bad about yourself -- or that you are a failure or have let yourself or your family down: Not at all 7. Trouble concentrating on things, such as reading the newspaper or watching television: Not at all 8. Moving or speaking so slowly that other people could have noticed. Or the opposite - being so fidgety or restless that you have been moving around a lot more than usual: More than half the days 9. Thoughts that you would be better off , or of hurting yourself in some way: Not at all How difficult have these problems made it for you to do your work, take care of things at home, or get along with other people?: Somewhat difficult Total Score: 13 ARMAND-Q SV Test Statements CAD is a disease of the arteries in the heart: False Examples of risk factors for heart disease: True Angina is chest pain or discomfort: I Don't Know The benefits of resistance training include: True Eating more meat and dairy products: False Anti-platelet medications such as aspirin are important: True The only effective way to manage stress: False An exercise warm-up slowly increases heart rate: I Don't Know Prepared, processed foods usually have high sodium: True Depression is common after a heart attack: I Don't Know The statin medications lower cholesterol: True To control blood pressure, lower the amount of sodium: I Don't Know If someone gets chest discomfort during walking: False Transfats are partially hydrogenated vegetable oils: I Don't Know Sleep apnea that is not treated increases the risk: I Don't Know To control cholesterol, one should become a vegetarian: I Don't Know Someone knows if he/she is exercising at the right level: I Don't Know Diabetes cannot be prevented with exercise & health eating: I Don't Know Stress is a large risk for heart attack: True A diet that can help lower blood pressure is rich in: True Total Score Total Correct Responses: 11 Self-Efficacy 6-Item Scale Initial Assessment: We would like to know how confident you are in doing certain activities. Please select your confidence level for: Fatigue Select Number: 3 Physical Discomfort or Pain Select Number: 3 Emotional Distress Select Number: 8 Other Symptoms or Health Problems Select Number: 5 Different Tasks and Activities Select Number: 7 Medication Select Number: 9 Total Score:: 5 Nutrition Survey Nutrition Survey Instructions Scoring Instructions Nutrition Survey Initial: Have you lost >10 lbs over the past 2 months without trying?: No Are you following a special diet at home for diabetes, low fat, or low salt?: No Are you interested in meeting with a dietitian for help understanding your diet?: No Do you eat less than 3 meals a day?: No Do you eat fatty meats (rowan, sausage, ribs, etc), fried foods, desserts, large amounts of salad dressings, margarine, butter, or cheese most days?: No Do you have food allergies? [Enter types in comment field]: No Do you season food with salt, seasoning salt, or garlic salt?: Yes Do you used canned, boxed, frozen meals, or soups, seasoning packets?: No Exercise - 30-day Assessment Physician Prescribed Exercise Modalities: Treadmill, RowerKerane AD-7, SciFit Stepper, SciFit Pro- II Ergometer and SciFit Lateral Insurance Claims Clerk Exercise - 60-day Assessment Physician Prescribed Exercise Modalities: Treadmill, Rower, Kera Airdyne AD-7, SciFit Stepper, SciFit Pro- II Ergometer and SciFit Lateral Insurance Claims Clerk Exercise - 90-day Assessment Physician Prescribed Exercise Modalities: Treadmill, Rower, Schwinn Airdyne AD-7, SciFit Stepper, SciFit Pro- II Ergometer and SciFit Lateral Insurance Claims Clerk Exercise - Final/Discharge Physician Prescribed Exercise Modalities: Treadmill, Rower, Schwinn Airdyne AD-7, SciFit Stepper, SciFit Pro- II Ergometer and SciFit Lateral [place] Frequency: 3x/week for 12 weeks [36 sessions] Intensity: 60-80% of age predicted maximum heart rate reserve Current METSs:: 3 Target Heart Rate:: 89-112 Nutrition - 30-Day Assessment Weight Mgt (Other Care) Height: 5 ft 9 in Weight:: 178 lb BMI: 26.2 Nutrition - 60-Day Assessment Weight Mgt (Other Care) Height: 5 ft 9 in Weight:: 178 lb BMI: 26.2 Core - Final Assessment Hypertension Resting Blood Pressure:: 126/70 [place] [employer] Hypertension Guidelines Core - 60-Day Assessment Hypertension Resting Blood Pressure:: 126/70 [place] [employer] Hypertension Guidelines Psychosocial - 30-Day Assess Target Goals Target Goals Referral to Behavioral Health PS - Interventions: Yes: Attend Stress Management Classes Psychosocial - 60-Day Assess Target Goals Target Goals Referral to Behavioral Health PS - Interventions: Yes: Attend Stress Management Classes Psychosocial - 90-Day Assess Target Goals Target Goals Referral to Behavioral Health PS - Interventions: Yes: Attend Stress Management Classes Psychosocial - Final Assessmen Target Goals Target Goals Psychosocial Test phq-9 Severity See PHQ-9 Score: 13 (declines counseling) Referral to Behavioral Health PS - Interventions: Yes: Attend Stress Management Classes Nutrition - 90-Day Assessment Weight Mgt (Other Care) Height: 5 ft 9 in Weight:: 178 lb BMI: 26.2 Nutrition - Final Assessment Program Goals Patient has diagnosis of Hyperlipidemia (ICD E78)?: Yes Weight Mgt (Other Care) Height: 5 ft 9 in Weight:: 178 lb BMI: 26.2
[2024-11-08 12:26] VITALS: BMI 26.2
[2024-11-08 12:29] VITALS: BP 126/70; PULSE 74; O2SAT 98
[2024-11-08 12:35] VITALS: BP 126/70
[2024-11-08 13:10] VITALS: BP 126/70; BMI 26.2
== END | disposition home or self-care (01) ==
PROVIDERS: PCP Family Medicine; Referring Provider Internal Medicine Cardiovascular Disease; Visit Provider Internal Medicine Cardiovascular Disease
DX: I42.8 Other cardiomyopathies (principal); I10 Essential (primary) hypertension; I35.0 Nonrheumatic aortic (valve) stenosis; Z86.718 Personal history of other venous thrombosis and embolism; Z98.61 Coronary angioplasty status; I25.10 Atherosclerotic heart disease of native coronary artery without angina pectoris; I35.1 Nonrheumatic aortic (valve) insufficiency; R01.1 Cardiac murmur, unspecified; R06.09 Other forms of dyspnea; R07.9 Chest pain, unspecified; R94.39 Abnormal result of other cardiovascular function study; Z98.890 Other specified postprocedural states; E78.5 Hyperlipidemia, unspecified

== ENCOUNTER → 2024-12-01 | Outpatient (CLI) | payer MEDICARE, SELFPAY ==
[2024-11-08 13:10] VITALS: BMI 26.2
[2024-12-01 14:18] LABS: Hematocrit 41.3 % (40-54); Hemoglobin 14.1 g/dL (13.0-16.5); Immature Granulocytes Count 0.060 X10^3/uL (0.0-0.0); Mean Corp Hgb Conc 34.1 g/dL (32-36); Mean Corpuscular Volume 88.8 fL (80-94); Mean Platelet Vol. 9.4 fl (6.2-12.0); NRBC Flagged by Analyzer 0 % (0-5); Platelet Count 242 K/mm3 (150-450); RBC Distribution Width CV 13.4 % (11.6-14.6); RBC Distribution Width SD 43.6 fl (35.1-43.9); Red Blood Count 4.65 M/mm3 (4.6-6.2); White Blood Count 7.2 K/mm3 (4.4-11.0)
[2024-12-01 15:13] LABS: Anion Gap 11 (5-15); BUN 13 mg/dL (4-19); BUN/Creat Ratio 17.8 RATIO (10-20); Calcium,Total 9.7 mg/dL (7.6-11.0); Carbon Dioxide 24.8 mmol/L (21.0-32.0); Chloride 104 mmol/L (98-108); Glucose 104 mg/dL (70-99); Potassium 4.4 mmol/L (3.3-5.1); Pro- Brain NATRIURETIC PEPTIDE 96 pg/mL (<=900)
== END | disposition home or self-care (01) ==
LOC: LAB 13:59
PROVIDERS: PCP Family Medicine; Referring Provider Nurse Practitioner Family; Visit Provider Nurse Practitioner Family
DX: R06.09 Other forms of dyspnea (principal); I42.8 Other cardiomyopathies; Z86.718 Personal history of other venous thrombosis and embolism
CPT/HCPCS: 36415; 80048; 83880; 85025

== ENCOUNTER 2024-12-07 15:15 | Outpatient (RCR) | payer MEDICARE, SELFPAY ==
[2024-11-08 13:10] VITALS: BMI 26.2
--- NOTE | 2024-12-06 08:18 | PCM.CR.ITP ---
Exercise - Initial Assessment Visit Session #:: 4 Physician Prescribed Exercise Modalities: Treadmill, Rower, Schwinn Airdyne AD-7, SciFit Stepper, SciFit Pro-II Ergometer and SciFit Lateral [place] Nutrition - Initial Assessment Weight Mgt (Other Care) Height: 5 ft 9 in Weight:: 178 lb BMI: 26.2 BMI (Report if calculated above): 26 Psychosocial - Initial Assess Target Goals Target Goals Referral to Behavioral Health PS - Interventions: Yes: Attend Stress Management Classes Patient Health Questionnaire PHQ-9 Screening 30-Day Re-eval Assessment: 1. Little interest or pleasure in doing things: More than half the days 2. Feeling down, depressed, or hopeless: Several days 3. Trouble falling or staying asleep, or sleeping too much: Nearly every day 4. Feeling tired or having little energy: Nearly every day 5. Poor appetite or overeating: More than half the days 6. Feeling bad about yourself -- or that you are a failure or have let yourself or your family down: Not at all 7. Trouble concentrating on things, such as reading the newspaper or watching television: Not at all 8. Moving or speaking so slowly that other people could have noticed. Or the opposite - being so fidgety or restless that you have been moving around a lot more than usual: More than half the days 9. Thoughts that you would be better off , or of hurting yourself in some way: Not at all How difficult have these problems made it for you to do your work, take care of things at home, or get along with other people?: Somewhat difficult Total Score: 13 Self-Efficacy 6-Item Scale 30-Day Re-eval Assessment: We would like to know how confident you are in doing certain activities. Please select your confidence level for: Fatigue Select Number: 3 Physical Discomfort or Pain Select Number: 3 Emotional Distress Select Number: 8 Other Symptoms or Health Problems Select Number: 5 Different Tasks and Activities Select Number: 7 Medication Select Number: 9 Total Score:: 5 Nutrition Survey Nutrition Survey Instructions Scoring Instructions Exercise - 30-day Assessment Visit Date of Eval: 12/06/24 Session #:: 4 Physician Prescribed Exercise Modalities: Treadmill, Rower, Schwinn [place]yne AD-7, SciFit Stepper, SciFit Pro-II Ergometer and SciFit Lateral [place] Frequency: 3x/week for 12 weeks [36 sessions] Intensity: 60-80% of age predicted maximum heart rate reserve Duration: 30 - 45 minutes METs - Progression 0.5-1.0 weekly:: 0.5-1.0 Current METSs:: 4.1 Target Heart Rate:: 89-112 Target RPE 12-16:: 12-16 Current RPE:: 12 Maximum Excercise HR:: 100 Resting Blood Pressure: 152/80 Maximum Exercise Blood Pressure: 164/92 EKG Type: NSR with rare PAC Current Physical Activity or Exercising minutes: 30-45 Outcomes & Goals Goals:: Verbalizes understanding of THR, RPE & goal METS by session 6, Documents in home exercise log/reports 30 min aerobic 5 day/wk by DC and Demonstrates accurate pulse taking by DC Intervention & Plan Exercise Program Goals: Instruct on personal THR & RPE, Instruct on MET level & personal MET goal, Show patient to take own pulse /validate performance until accurate and Instruct on home exercise 30-day Reassessments 30 day Reassessments:: Progressing Reassessment Notes & Comments:: Pt utilizing RPE scale correctly, pt instructed on home exercise Physical Activity Home Exercise Physical Activity - Home Exercise: Safe Exercise, Warm-up, Self-monitoring, Cool-Down, Home Exercise > 30 min Daily and Sitting Time <3 hours/daily Outcomes & Goals Outcomes/Goals: Demonstrates correct Warm-up/exercise Cool-Down (S3) if = 2.5 METs, Verbalizes symptoms of exercise intolerance by Session 3 (S3) and Demonstrate safe equipment use (S3) & follows exercise prescrition (6) Intervention & Plan Plan/Intervention: Instruct warm-up & cool-down if exercising at > 2 METs, Instruct on symptoms of exercise intolerance & actions to take, Instruct & monitor on saf and Assess intial functional capacity & safety risk 30-day Reassessments 30 day Reassessments:: Progressing Reassessment Notes & Comments:: Pt demonstrates safe use of equipment, pt warms up and cools down correctly with little assistance Exercise - 60-day Assessment Physician Prescribed Exercise Modalities: Treadmill, Rower, Schwinn Airdyne AD-7, SciFit Stepper, SciFit Pro-II Ergometer and SciFit Lateral [place] Exercise - 90-day Assessment Physician Prescribed Exercise Modalities: Treadmill, Rower, Schwinn A[place]yne AD-7, SciFit Stepper, SciFit Pro-II Ergometer and SciFit Lateral [place] Exercise - Final/Discharge Physician Prescribed Exercise Modalities: Treadmill, RowerKera AD-7, SciFit Stepper, SciFit Pro-II Ergometer and SciFit Lateral [place] Nutrition - 30-Day Assessment Program Goals Nutrition Program Goals Patient has diagnosis of Hyperlipidemia (ICD E78)?: Yes Visit Date of Eval: 12/06/24 Session #:: 4 Cholesterol/Lipids (Other Core Measures) Triglycerides (mg/dL): 60 Total Cholesterol (mg/dL): 164 LDL Cholesterol (mg/dL): 88 HDL Cholesterol (mg/dL): 64 Lipid Medication: rosuvastatin 10mg QD Determine presence & major risk factors that modify LDL goal: Cigarette smoking, Hypertension or hypertensive medication, Low HDL cholesterol <40 mg/dL* and Age men > 45 years; women >/= 55 years Outcomes/Goals: Pt IDs own risk factors & lifestyle modifications by Session 10, Verbalizes symptoms of angina & response by session 3. and Pt independently manages Intervention/Plan: Advocate for lipid panel cholesterol medication if applicable, Instruct on personal lipid levels & lipid goals/NCEP guidelines and Instruct on cholesterol 30-day Reassessments:: Progressing Reassessment Notes & Comments:: PT taking lipid medication as prescribed, pt instructed on cholesterol in group education Diabetes (Other Core Measures) Diabetes Type: Not Applicable Weight Mgt (Other Care) Height: 5 ft 9 in Weight:: 178 lb BMI: 26.2 BMI (Report if calculated above): 26 Diagnosis Overweight/Obesity BMI> 30% ICD-10 E66: No Diagnosis High BMI/Morbid Obesity BMI> 35% ICD-10 Z68: No Outcomes/Goals: Pt sets, maintains & shows weight loss goal & trend during rehab Intervention/Plan: Instruct on ideal BMI & set weight loss goal w/patient, Assist pt to ID & incorporate diet changes for weight loss by S9, Refer to Structured Weight Loss program as appropriate and Encourage goal of using 250-300dcal per session for weight loss 30 day Reassessments:: Progressing Reassessment Notes & Comments:: Pt continues with exercise and weighs weekly during class Healthy Eating Habits Will attend diet classes:: Yes Outcomes/Goals:: Consume diet rich in vegs,fruits,whole grain/high fiber,fish,lean meat and Limit sat/trans fats,cholesterol & added salts & sugars Intervention/Plan:: Assess current eating habits 30-day Reassessments:: Progressing Reassessment Notes & Comments:: Pt to attend diet classes as scheduled Education Gave educational materials for:: Signs & symptoms of hypoglycemia, Signs & symptoms of hyperglycemia, Relate diabetes to coronary artery disease and Healthy eating Nutrition - 60-Day Assessment Weight Mgt (Other Care) Height: 5 ft 9 in Weight:: 178 lb BMI: 26.2 BMI (Report if calculated above): 26 Core - 30-Day Assessment Visit Date of Eval: 12/06/24 Session #:: 4 Medication Compliance Preventative Medication(s):: Clopidogrel/P2Y12 inhibit, Statin/lipid and Eliquis Doesn?t believe in the benefits of treatment?: No Believes medications are unnecessary or harmful?: No Has a concern about medication side effects?: No Expresses concern over the cost of medications?: No Outcomes/Goals: Verbalizes medications,desired effect & common side effects @ DC, Pt self-reports following medication regimen and Keeps card in wallet w/medications listed by DC Interventions/plans: Instruct on medication effects & side effects, Review medication list w/patient every two weeks and Instruct importance of taking meds as ordered & assist problem solving 30-day Reassessments:: Progressing Reassessment Notes & Comments:: Pt taking all medications as prescribed Tobacco Use Tobacco Use: Non-smoker Hypertension Hypertension Diagnosis:: Hypertension ICD-10 I10 Resting Blood Pressure:: 152/80 Citizen Of [place] Heart Association Hypertension Guidelines Peak Exercise Blood Pressure:: 164/92 Outcomes/Goals: Able to verbalize/achieve optimal blood pressure <130/80 and Incorporates diet changes & exercise for blood pressure control by DC Interventions/plan: Instruct on optimal blood pressure, hypertension & medications and Instruct on effects of sodium, alcohol, stress, exercise &hypertension 30 day Reassessments:: Not Met Reassessment Notes & Comments:: Pt taking bp meds as prescribed, pt resting BP above optimal level, pt encouraged to follow low sodium diet and exercise Psychosocial - 30-Day Assess VIsit Date of Eval: 12/06/24 Session #:: 4 History of previous Mental disease:: No History of Emotional Disorders: None Target Goals Target Goals Psychosocial Test Tool Used:: PHQ-9 Questionnaire phq-9 Severity See PHQ-9 Score: 13 Referral to Behavioral Health PS - Interventions: Yes: Attend Stress Management Classes Outcomes/Goals: See list Psychosocial Outcomes/Goals:: ID's personal stressors & 2 strategies to manage stress by discharge Intervention/Plan: See List Interventions/Plan:: Assess stressors,coping strategies & signs of derpression on admission, Instruct/assist pt to develop coping & personal stress Mgt strategies, Refer to Behavioral Health if appropriate, Refer to Physician if appropriate and Instruct patient to recognize signs & symptoms of depression 30-day Reassessments: 30 day Reassessments:: Progressing Reassessment Notes & Comments:: Pt denies any psychosocial need at this time, pt to attend stress management classes Psychosocial - 60-Day Assess Target Goals Target Goals Referral to Behavioral Health PS - Interventions: Yes: Attend Stress Management Classes Outcomes/Goals: See list Psychosocial Outcomes/Goals:: ID's personal stressors & 2 strategies to manage stress by discharge Psychosocial - 90-Day Assess Target Goals Target Goals Referral to Behavioral Health PS - Interventions: Yes: Attend Stress Management Classes Psychosocial - Final Assessmen Target Goals Target Goals Referral to Behavioral Health PS - Interventions: Yes: Attend Stress Management Classes Nutrition - 90-Day Assessment Weight Mgt (Other Care) Height: 5 ft 9 in Weight:: 178 lb BMI: 26.2 BMI (Report if calculated above): 26 Nutrition - Final Assessment Weight Mgt (Other Care) Height: 5 ft 9 in Weight:: 178 lb BMI: 26.2 BMI (Report if calculated above): 26
[2024-12-06 08:26] VITALS: BP 152/80; BMI 26.0; BMI 26.2
[2024-12-06 08:31] VITALS: BP 152/80
== END 2024-12-08 23:59 ==
LOC: CR 15:15
PROVIDERS: PCP Family Medicine; Referring Provider Internal Medicine Cardiovascular Disease; Visit Provider Internal Medicine Cardiovascular Disease
DX: Z95.5 Presence of coronary angioplasty implant and graft (principal); I42.8 Other cardiomyopathies; I10 Essential (primary) hypertension; I35.0 Nonrheumatic aortic (valve) stenosis; Z86.718 Personal history of other venous thrombosis and embolism; I35.1 Nonrheumatic aortic (valve) insufficiency; R01.1 Cardiac murmur, unspecified; R06.09 Other forms of dyspnea; R94.39 Abnormal result of other cardiovascular function study; Z98.890 Other specified postprocedural states; E78.5 Hyperlipidemia, unspecified; R07.9 Chest pain, unspecified; I25.10 Atherosclerotic heart disease of native coronary artery without angina pectoris
CPT/HCPCS: 93798

== ENCOUNTER → 2024-12-13 | Outpatient (CLI) | payer MEDICARE, SELFPAY ==
[2024-11-08 13:10] VITALS: BMI 26.2
[2024-12-06 08:26] VITALS: BMI 26.2
--- NOTE | 2024-12-13 07:57 | CDU_ITS ---
Reason For Study Reason For Study: Dizziness Rt. Velocities/BP Lt. Velocities/BP Prox CCA 94.9/17.6 cm/sec. Prox CCA 88.8/21.2 cm/sec. Mid CCA 65.4/15.1 cm/sec. Mid CCA 70.4/15.1 cm/sec. Dist CCA 64.2/15.1 cm/sec. Dist CCA 59.7/12.4 cm/sec. Prox ICA 75.3/21.2 cm/sec. Prox ICA 44.7/16.0 cm/sec. Mid ICA 77.7/28.6 cm/sec. Mid ICA 45.6/9.0 cm/sec. Dist ICA 85.1/31.1 cm/sec. Dist ICA 69.2/28.6 cm/sec. Rt. ICA/CCA = 1.3. Lt. ICA/CCA = 1.0. Prox ECA 56.9/2.8 cm/sec. Prox ECA 48.2/6.4 cm/sec. Rt. Vert. 44.6/11.4 cm/sec. Lt. Vert. 45.6/11.6 cm/sec. Right Extracranial There is intimal thickening but no significant atherosclerotic plaque noted in the right common carotid artery. There is heterogeneous, irregular atherosclerotic plaque noted in the right internal carotid artery. There is intimal thickening but no significant atherosclerotic plaque noted in the right external carotid artery. Antegrade flow is noted in the right vertebral artery. Left Extracranial There is homogeneous, smooth atherosclerotic plaque noted in the left common carotid artery. There is heterogeneous, irregular atherosclerotic plaque noted in the left internal carotid artery. There is intimal thickening but no significant atherosclerotic plaque noted in the left external carotid artery. Antegrade flow is noted in the left vertebral artery. Procedure Carotid Duplex [id number]. This is a Carotid Duplex examination using B-mode, color flow and specral Doppler. Exam performed in department. VL/Carotid Duplex Ultrasound Interpretation Summary Mild (<50%) stenosis right extracranial internal carotid. Mild (<50%) stenosis left extracranial internal carotid. Patent and antegrade vertebrals bilaterally. Ordering Physician: Will Vences Referring Physician: Will Vences Performed By: Jayna Love RVT
== END | disposition home or self-care (01) ==
PROVIDERS: PCP Family Medicine; Referring Provider Nurse Practitioner Family; Visit Provider Nurse Practitioner Family
DX: R42 Dizziness and giddiness (principal); I42.8 Other cardiomyopathies; I65.22 Occlusion and stenosis of left carotid artery; R06.09 Other forms of dyspnea; Z86.718 Personal history of other venous thrombosis and embolism
CPT/HCPCS: 93880

== ENCOUNTER 2024-12-28 15:15 | Outpatient (RCR) | payer MEDICARE, SELFPAY ==
[2024-12-06 08:26] VITALS: BMI 26.2
--- NOTE | 2025-02-02 07:42 | PCM.CR.ITP ---
Exercise - Initial Assessment Physician Prescribed Exercise Modalities: Treadmill, Schwinn Airdyne AD-7 and SciFit Stepper Nutrition - Initial Assessment Program Goals Nutrition Program Goals Patient has diagnosis of Hyperlipidemia (ICD E78)?: Yes Weight Mgt (Other Care) Height: 5 ft 9 in Weight:: 180 lb BMI: 26.6 Core - Initial Assessment Hypertension Resting Blood Pressure:: 120/78 [place] [employer] Hypertension Guidelines Psychosocial - Initial Assess Referral to Behavioral Health PS - Interventions: Yes: Attend Stress Management Classes Exercise - 30-day Assessment Physician Prescribed Exercise Modalities: Treadmill, Schwinn Airdyne AD-7 and SciFit Stepper Exercise - 60-day Assessment Physician Prescribed Exercise Modalities: Treadmill, Schwinn Airdyne AD-7 and SciFit Stepper Exercise - 90-day Assessment Physician Prescribed Exercise Modalities: Treadmill, Schwinn Airdyne AD-7 and SciFit Stepper Exercise - Final/Discharge Visit Date of Eval: 02/02/25 Session #:: 7 (Pt decided to stop CR) Physician Prescribed Exercise Modalities: Treadmill, Schwinn Airdyne AD-7 and SciFit Stepper Frequency: 3x/week for 12 weeks [36 sessions] Intensity: 60-80% of age predicted maximum heart rate reserve Duration: 30 - 45 minutes Current METSs:: 4.9 Target Heart Rate:: 89-112 Current RPE:: 12-13 Maximum Heart Rate:: 111 Resting Blood Pressure: 120/78 Maximum Exercise Blood Pressure: 190/92 EKG Type: NSR to ST with rare PAC Outcomes & Goals Goals:: Verbalizes understanding of THR, RPE & goal METS by session 6, Documents in home exercise log/reports 30 min aerobic 5 day/wk by DC, Demonstrates accurate pulse taking by DC and Other additional outcome/goals: see below Intervention & Plan Exercise Program Goals: Instruct on personal THR & RPE, Instruct on MET level & personal MET goal, Show patient to take own pulse /validate performance until accurate, Instruct on home exercise and Other additional plan/int Physical Activity Home Exercise Physical Activity - Home Exercise: Safe Exercise, Warm-up, Self-monitoring, Cool-Down, Home Exercise > 30 min Daily and Sitting Time <3 hours/daily Outcomes & Goals Outcomes/Goals: Demonstrates correct Warm-up/exercise Cool-Down (S3) if = 2.5 METs, Verbalizes symptoms of exercise intolerance by Session 3 (S3), Demonstrate safe equipment use (S3) & follows exercise prescrition (6) and Other: See below Intervention & Plan Plan/Intervention: Instruct warm-up & cool-down if exercising at > 2 METs, Instruct on symptoms of exercise intolerance & actions to take, Instruct & monitor on saf, Assess intial functional capacity & safety risk and Other See below Nutrition - 30-Day Assessment Weight Mgt (Other Care) Height: 5 ft 9 in Weight:: 180 lb BMI: 26.6 Nutrition - 60-Day Assessment Weight Mgt (Other Care) Height: 5 ft 9 in Weight:: 180 lb BMI: 26.6 Core - Final Assessment Visit Date of Eval: 02/02/25 Session #:: 7 Medication Compliance Preventative Medication(s):: Clopidogrel/P2Y12 inhibit, Statin/lipid and Eliquis H/O mental health issues: depression, anxiety, or addiction?: No Doesn?t believe in the benefits of treatment?: No Believes medications are unnecessary or harmful?: No Has a concern about medication side effects?: No Expresses concern over the cost of medications?: No Outcomes/Goals: Verbalizes medications,desired effect & common side effects @ DC, Pt self-reports following medication regimen, Keeps card in wallet w/medications listed by DC and Other additional outcome/goals: Interventions/plans: Instruct on medication effects & side effects, Review medication list w/patient every two weeks, Instruct importance of taking meds as ordered & assist problem solving and Other additional Tobacco Use Tobacco Use: Non-smoker Hypertension Hypertension Diagnosis:: Hypertension ICD-10 I10 Resting Blood Pressure:: 120/78 [place] [employer] Hypertension Guidelines Peak Exercise Blood Pressure:: 190/92 Outcomes/Goals: Able to verbalize/achieve optimal blood pressure <130/80, Incorporates diet changes & exercise for blood pressure control by DC and Other additional outcomes/goals Interventions/plan: Instruct on optimal blood pressure, hypertension & medications, Instruct on effects of sodium, alcohol, stress, exercise &hypertension and Other additional plan/interventions Tobacco Cessation Referral Smoking Cessation Referral:: No Individual Education/Counseling:: No Education Schedule Given:: Yes Core - 60-Day Assessment Hypertension Resting Blood Pressure:: 120/78 [place] [employer] Hypertension Guidelines Psychosocial - 30-Day Assess Referral to Behavioral Health PS - Interventions: Yes: Attend Stress Management Classes Psychosocial - 60-Day Assess Referral to Behavioral Health PS - Interventions: Yes: Attend Stress Management Classes Psychosocial - 90-Day Assess VIsit Date of Eval: 02/02/25 Session #:: 7 History of previous Mental disease:: No Psychosocial Test Tool Used:: PHQ-9 Questionnaire phq-9 Severity See PHQ-9 Score: 13 Referral to Behavioral Health PS - Interventions: Yes: Attend Stress Management Classes Outcomes/Goals: See list Psychosocial Outcomes/Goals:: ID's personal stressors & 2 strategies to manage stress by discharge and Other Additional outcome/goals: Intervention/Plan: See List Interventions/Plan:: Assess stressors,coping strategies & signs of derpression on admission, Instruct/assist pt to develop coping & personal stress Mgt strategies, Refer to Behavioral Health if appropriate, Refer to Physician if appropriate, Instruct patient to recognize signs & symptoms of depression, Instruct patient to recog and Other additional plan/intervention Psychosocial - Final Assessmen Referral to Behavioral Health PS - Interventions: Yes: Attend Stress Management Classes Nutrition - 90-Day Assessment Weight Mgt (Other Care) Height: 5 ft 9 in Weight:: 180 lb BMI: 26.6 Nutrition - Final Assessment Program Goals Patient has diagnosis of Hyperlipidemia (ICD E78)?: Yes Visit Date of Assessment:: 02/02/25 Session #:: 7 Cholesterol/Lipids (Other Core Measures) Determine presence & major risk factors that modify LDL goal: Cigarette smoking, Hypertension or hypertensive medication, Low HDL cholesterol <40 mg/dL*, Family history of premature CHD in Male < 55 years: female <65 yearsFa and Age men > 45 years; women >/= 55 years Outcomes/Goals: Pt IDs own risk factors & lifestyle modifications by Session 10, Verbalizes symptoms of angina & response by session 3., Pt independently manages and Other Additional Outcomes/Goals: Intervention/Plan: Advocate for lipid panel cholesterol medication if applicable, Instruct on personal lipid levels & lipid goals/NCEP guidelines, Instruct on cholesterol and Other additional plan/int Diabetes (Other Core Measures) Diabetes Type: Not Applicable Weight Mgt (Other Care) Height: 5 ft 9 in Weight:: 180 lb BMI: 26.6 Diagnosis Overweight/Obesity BMI> 30% ICD-10 E66: No Diagnosis High BMI/Morbid Obesity BMI> 35% ICD-10 Z68: No Outcomes/Goals: Pt sets, maintains & shows weight loss goal & trend during rehab and Other additional outcomes/goals Intervention/Plan: Instruct on ideal BMI & set weight loss goal w/patient, Assist pt to ID & incorporate diet changes for weight loss by S9, Refer to Structured Weight Loss program as appropriate, Encourage goal of using 250-300dcal per session for weight loss and Other additional plan/interventions Healthy Eating Habits Outcomes/Goals:: Consume diet rich in vegs,fruits,whole grain/high fiber,fish,lean meat, Limit sat/trans fats,cholesterol & added salts & sugars and Other additional outcome/goals: Intervention/Plan:: Assess current eating habits and Other Additional plan/interventions Education Gave educational materials for:: Signs & symptoms of hypoglycemia, Signs & symptoms of hyperglycemia, Relate diabetes to coronary artery disease and Healthy eating
[2025-02-02 07:48] VITALS: BP 120/78; BMI 26.6
== END 2025-01-08 23:59 ==
LOC: CR 15:15
PROVIDERS: PCP Family Medicine; Referring Provider Internal Medicine Cardiovascular Disease; Visit Provider Internal Medicine Cardiovascular Disease
DX: Z95.5 Presence of coronary angioplasty implant and graft (principal); I42.8 Other cardiomyopathies; I10 Essential (primary) hypertension; I35.0 Nonrheumatic aortic (valve) stenosis; Z86.718 Personal history of other venous thrombosis and embolism; Z98.61 Coronary angioplasty status; I25.10 Atherosclerotic heart disease of native coronary artery without angina pectoris; I35.1 Nonrheumatic aortic (valve) insufficiency; R01.1 Cardiac murmur, unspecified; R06.09 Other forms of dyspnea; I42.9 Cardiomyopathy, unspecified; R07.9 Chest pain, unspecified; R94.39 Abnormal result of other cardiovascular function study; Z98.890 Other specified postprocedural states; E78.5 Hyperlipidemia, unspecified
CPT/HCPCS: 93798

== ENCOUNTER 2025-01-10 17:03 | Emergency (ER) | payer MEDICARE, SELFPAY ==
[2024-12-06 08:26] VITALS: BMI 26.2
[2025-01-10] VITALS (10 sets, daily range): BP systolic 125–157; BP diastolic 67–103; PULSE 52–66; RESP 14–18; TEMP 36.6; O2SAT 97–100; BMI 26.1
--- NOTE | 2025-01-10 18:20 | EKG12_ITS ---
Test Reason : CP Blood Pressure : */* mmHG Vent. Rate : 67 BPM Atrial Rate : 67 BPM P-R Int : 176 ms QRS Dur : 88 ms QT Int : 394 ms P-R-T Axes : 21 -12 21 degrees QTcB Int : 416 ms Normal sinus rhythm Minimal voltage criteria for LVH, may be normal variant ( R in aVL ) Cannot rule out Inferior infarct , age undetermined Abnormal ECG Confirmed by Estevan Mcgarry ([id number]), beef grader POP SALGADO ([id number]) on 01/11/2025 10:33:19 AM Referred By: BB/MARLA Confirmed By: Estevan Mcgarry
[2025-01-10 18:29] LABS: Hematocrit 45.4 % (40-54); Hemoglobin 15.5 g/dL (13.0-16.5); Immature Granulocytes Count 0.050 X10^3/uL (0.0-0.0); Mean Corp Hgb Conc 34.1 g/dL (32-36); Mean Corpuscular Volume 89.4 fL (80-94); Mean Platelet Vol. 9.6 fl (6.2-12.0); NRBC Flagged by Analyzer 0 % (0-5); Platelet Count 307 K/mm3 (150-450); RBC Distribution Width CV 13.7 % (11.6-14.6); RBC Distribution Width SD 45.1 fl (35.1-43.9); Red Blood Count 5.08 M/mm3 (4.6-6.2); White Blood Count 8.2 K/mm3 (4.4-11.0)
[2025-01-10] MEDS: Nitroglycerin SL (ED/IMG/CATH) 0.4 MG TABLET SL (18:34)
[2025-01-10 18:49] LABS: Anion Gap 13 (5-15); BUN 10 mg/dL (4-19); BUN/Creat Ratio 12.9 RATIO (10-20); Calcium,Total 9.7 mg/dL (7.6-11.0); Carbon Dioxide 24.0 mmol/L (21.0-32.0); Chloride 103 mmol/L (98-108); Estimated Creatinine Clearance 84.69 ml/min (50-250); Glucose 93 mg/dL (70-99); Potassium 4.0 mmol/L (3.3-5.1); Troponin T High Sensitivity 11 ng/L (<=22)
--- NOTE | 2025-01-10 19:00 | RAD_ITS ---
PROCEDURE: CHEST 1 VIEW (PORTABLE) 01/10/2025 REASON FOR EXAM: CHEST PAIN TECHNIQUE: Frontal view of the chest. COMPARISON: 09/19/24 FINDINGS: Left base subsegmental atelectasis. no focal consolidation. No pleural effusion or pneumothorax. Cardiac silhouette is within normal limits. No acute fractures. RAD/Chest 1 View (Portable) IMPRESSION: Left base subsegmental atelectasis. no focal consolidation. Reading Location: [id number]
--- NOTE | 2025-01-10 21:21 | ED.VIS.CHEST ---
HPI History of Present Illness Chief Complaint: Chest Pain Informant: patient Narrative Narrative: Patient 69-year-old male with history of coronary artery disease (has received 3 stents this summer), obstructive sleep apnea on CPAP, DVT, aortic valve disease, hypertension, hyperlipidemia, Talamantes's esophagus and nonischemic cardiomyopathy presenting for chest pain. Patient states for the past 3 days he has had intermittent pain under his ribs on the left side. Today became worse and he started feel short of breath because of the severity of the pain. He will get spasms of pain at his left chest that radiate to his left neck and his arm. He states the pain feels like a lightening bolt. Today he was talking to his son and they had an episode of pain which dropped him. He has been better with rest and worse with movements but not always reproducible with movements. He has been compliant with his medications. He did take nitroglycerin prior to arrival which he had at home and it did help ease up the pain. He states he has waves of pain. He denies any associated GI or symptoms. States has been compliant with his medication which include Eliquis, Plavix and isosorbide mononitrate. No other complaints or concerns reported at this time. Chart review shows the patient had cardiac catheterization on 12/19/2024 and received drug-eluting stent to the RCA and right PDA proximal. This performed with Dr. Mena. [facility] Medical History Nonischemic cardiomyopathy Wears dentures History of diverticulitis CAD (coronary artery disease) Right inguinal hernia Abnormal nuclear stress test Atherosclerotic heart disease of [place] coronary artery without angina pectoris Wears glasses Wears partial dentures Cancer Depression Anxiety Abrasion Arthritis Fatty liver Easy bruising Excessive bleeding Restless legs Vertigo Gastric reflux Sleep apnea CPAP (continuous positive airway pressure) dependence Shortness of breath on exertion Non-smoker History of edema Leg cramps History of echocardiogram Hypertension History of heart attack Chest pain History of stress test Cardiology follow-up encounter Abdominal pain Vertigo Squamous cell carcinoma Elevated troponin I level (2005) Nonobstructive atherosclerosis of coronary artery Recurrent deep vein thrombosis (DVT) Obstructive sleep apnea Gastroesophageal reflux disease Talamantes's esophagus Paroxysmal supraventricular tachycardia Osteoarthritis Insomnia Carotid artery occlusion without infarction Diverticulitis Type 2 diabetes mellitus without complication Asthma Myalgia Facial paresthesia (07/2018) Pericarditis Migraines History of GI bleed Hyperlipidemia Essential hypertension GI bleed Home Medications ?Medication ?Instructions ?Recorded ?Last Taken ?Type pantoprazole 40 mg tablet,delayed 40 mg PO DAILY reflux 08/08/13 09/29/24 History release apixaban 5 mg tablet (Eliquis) 5 mg PO BID blood thinner 10/01/18 10/28/24 History multivitamin with minerals 1 tab PO DAILY supplement 05/06/19 09/29/24 History epinephrine 0.3 mg/0.3 mL 0.3 mg IM ONCE PRN ALLERGY 11/01/19 Unknown History injection, auto-injector meclizine 25 mg tablet 25 mg PO TID PRN PRN dizziness, 02/24/20 Unknown Rx vertigo #30 tabs tizanidine 4 mg capsule 4 mg PO Q8H PRN MUSCLE RELAXANT 10/18/21 Unknown History acetaminophen 325 mg tablet 650 mg (2 x 325 mg) PO Q4H PRN PRN 04/09/23 Unknown Rx Pain 1-10 Or Fever #0 tabs isosorbide mononitrate 30 mg 30 mg PO QAM awaiting mail in RX 10/13/24 11/01/24 Rx tablet,extended release 24 hr #90 tabs rosuvastatin 10 mg tablet 10 mg PO QDAY cholesterol #90 tabs 10/13/24 Unknown Rx verapamil 180 mg 24 hr 180 mg PO QHS blood pressure #90 11/15/24 Unknown Rx capsule,extended release caps nitroglycerin 0.4 mg sublingual 0.4 mg sublingual Q5-15M PRN chest 12/01/24 Unknown History tablet pain clopidogrel 75 mg tablet 75 mg PO DAILY anti platelet #90 12/05/24 Unknown Rx tabs tizanidine 4 mg tablet 4 mg PO Q8H PRN muscle spasticity 01/10/25 Unknown Rx #14 tabs Allergy/AdvReac Type Severity Reaction Status Date / Time bee venom protein (honey bee) Allergy Anaphylaxis Verified 01/10/25 17:07 cefadroxil hydrate (From Allergy Rash Verified 01/10/25 17:07 Juan Josef) niacin (From [place] Allergy Rash Verified 01/10/25 17:07 Extended-Release) azatadine AdvReac Other Verified 01/10/25 17:07 pseudoephedrine AdvReac Other Verified 01/10/25 17:07 Family History Brother Cancer prostate Diabetes Father Cancer stomach CAD (coronary artery disease) Heart disease Hypertension Hearing loss Mother CAD (coronary artery disease) Diabetes Heart disease Hypertension CVA (cerebral vascular accident) Surgical History Stented coronary artery (11/01/24) History of robot-assisted repair of right inguinal hernia History of esophagogastroduodenoscopy (EGD) History of colonoscopy History of left heart catheterization (06/03/22) History of left knee surgery History of inguinal hernia repair History of appendectomy Social History Smoking Status: Never smoker alcohol intake: never substance use type: does not use caffeine: Yes Type: coffee Number of servings: 3 ROS ROS ED Constitutional Constitutional ED: Denies chills, fever(s) or sweats ENT ENT ED: Denies sore throat Cardiovascular Cardiovascular: Reports as per HPI and chest pain Respiratory/Chest Respiratory/Chest: Reports dyspnea; Denies cough Gastrointestinal Gastrointestinal: Denies abdominal pain or vomiting Musculoskeletal Musculoskeletal: Reports neck pain and other Details: left shoulder pain ; Denies arthralgias Integumentary Denies rash Neurologic Neurologic: Reports paresthesias RUE; Denies weakness Psychiatric Psychiatric: Reports anxiety Hematologic/Lymphatic Hematologic/Lymphatic: Reports easy bleeding, easy bruising and other Details: On Eliquis EXAM Physical Exam Const Vital Signs: 01/10/25 17:04 01/10/25 18:03 01/10/25 18:20 Temperature 97.8 F Temperature Source Temporal Pulse Rate 66 60 Respiratory Rate 16 15 Blood Pressure 157/103 H 152/79 H Blood Pressure Mean 121 103 Pulse Ox 97 100 100 Oxygen Delivery Method Room Air Room Air 01/10/25 18:34 01/10/25 19:00 01/10/25 20:00 Temperature Temperature Source Pulse Rate 61 53 L 52 L Respiratory Rate 17 Blood Pressure 131/77 H 125/67 H 144/67 H Blood Pressure Mean 86 92 Pulse Ox 100 97 Oxygen Delivery Method Room Air 01/10/25 21:00 01/10/25 21:30 01/10/25 22:00 Temperature Temperature Source Pulse Rate 65 54 L 59 L Respiratory Rate 14 16 14 Blood Pressure 134/69 H 145/75 H 147/71 H Blood Pressure Mean 87 97 93 Pulse Ox 97 100 99 Oxygen Delivery Method 01/10/25 23:00 01/10/25 23:00 Temperature 98 F Temperature Source Pulse Rate 57 L 60 Respiratory Rate 18 18 Blood Pressure 142/71 H 142/71 H Blood Pressure Mean 92 94 Pulse Ox 98 98 Oxygen Delivery Method Positive well nourished and well developed General Appearance ED: well developed and NAD HEENT Reports moist mucous membranes Eyes General Eye ED: Negative for pale conjunctiva Neck supple and no JVD Chest Wall inspection of chest normal and palpation of chest normal Resp normal respiratory effort and clear to auscultation bilaterally Cardio regular rate and regular rhythm Cardio Narrative: Systolic murmur present GI normal to inspection, nondistended, normoactive bowel sounds, soft to palpation and non-tender Extremity normal to inspection Extremity Narrative: 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 5/5 strength with flexion and extension of the lower arms as well as abduction and adduction of the upper arms. Neuro oriented x3 Sensorium / Orientation: awake and alert Motor Exam: Negative for general weakness Psych mental status grossly normal Skin no rashes or lesions noted and no wounds Heart Score History: Slightly/Non-Suspicious ECG: Normal Age: >/= 65 years Risk Factors: >/= 3 Risk Factors or History of CAD Troponin: </= Normal Limit Score: 4 MDM MDM MDM Narrative Medical decision making narrative: Patient is evaluated for left-sided chest pain that radiates to his neck and arm. Does have a significant history of coronary artery disease had 2 stents placed last month. Differential includes not limited to ACS, pericarditis, pneumonia, pleurisy, chest wall pain, muscle spasm, cervical or thoracic radiculopathy. EKG does not show any acute ischemic changes. Patient has an episode of pain when I am in the room and it really looks more like a spasm and is not consistent with a typical ACS. The fact that this seems to be relieved with nitroglycerin is not consistent with this. Cardiac workup is obtained and largely normal. Is high since he troponins are 11 and 10. Given that he has been having pain intermittently for 3 days with these troponins I suspect this is unlikely to be cardiac. However given his cardiac history I did speak with cardiology, Dr. Mcgarry. We reviewed it. He states that the patient just had stents placed if there is any occlusion there would be either EKG changes or elevation of troponin and he agrees that the pain that I described was not consistent with cardiac pain. Patient is anticoagulated low suspicion for pulmonary emboli. Chest x-ray reviewed by myself as well as radiology does not show any acute process. There is some left basilar atelectasis with no consolidation. Question if he is having pain that is causing some splinting and thus the atelectasis. I do not appreciate any widening of his mediastinum. He is equal pulses all 4 extremities. Given his intermittent pain for 3 days I have a very low suspicion for acute aortic dissection. Patient is given a dose of nitroglycerin for his pain in the emergency room which he does find helpful. Discussed with patient that his workup was very reassuring. The exact cause is not clear. His does comment that since having his cath has been feeling better and has been overdoing it including doing a lot of work around the house and even carrying firewood. Discussed that this could be more muscle skeletal. states that he has had tizanidine in the past and found it helpful. I am happy to give him a prescription of that to see if it does help with his pain. Also discussed using Tylenol for pain. Patient given return precautions. Encouraged to follow-up with cardiology. Discharged home in stable condition. Lab Data Attestation: I reviewed the patient's lab results. Labs: Laboratory Results - last 24 hr 01/10/25 01/10/25 17:11 20:28 WBC 8.2 RBC 5.08 Hgb 15.5 Hct 45.4 MCV 89.4 MCH 30.5 MCHC 34.1 RDW Std Deviation 45.1 H RDW Coeff of Codie 13.7 Plt Count 307 MPV 9.6 Immature Gran % (Auto) 0.600 Neut % (Auto) 60.7 Lymph % (Auto) 24.9 Lamar % (Auto) 11.0 H Eos % (Auto) 2.3 Baso % (Auto) 0.5 Absolute Neuts (auto) 4.9 Absolute Lymphs (auto) 2.03 Nucleated RBC % 0 Sodium 140 Potassium 4.0 Chloride 103 Carbon Dioxide 24.0 Anion Gap 13 BUN 10 Creatinine 0.78 Estim Creat Clear Calc 84.69 Est GFR (MDRD) Non-Af 95 BUN/Creatinine Ratio 12.9 Glucose 93 Calcium 9.7 Troponin T High Sens 11 Troponin T Hi Sens 2 Hr 10 Radiography Diagnostic Testing: Clinical Impression(s) from Imaging Studies Chest X-Ray 01/10/25 19:00 IMPRESSION: Left base subsegmental atelectasis. no focal consolidation. Reading Location: [facility] Rhythm Strip Rhythm Strip: Sinus Rhythm Rate: 67 Ectopy: None EKG Initial EKG: Attestation: I personally reviewed and interpreted this EKG as follows: Interpretation: Sinus Rhythm Comments: Normal sinus rhythm rate 67 bpm Minimal voltage for LVH Normal axis Normal intervals Normal ST segments Prior EKG tracings: available for review Prior: Unchanged Management Discussion w/another healthcare provider: Residential Coordinator (cardiology ) Discharge Plan Triage Chief Complaint: Chest Pain ED Provider: Solange Patel Dx/Rx/DC Orders Clinical Impression: Chest pain Instructions: ED Chest Pain, Uncertain Cause, ED Neck Spasm, No Trauma Prescriptions: New tizanidine 4 mg tablet 4 mg PO Q8H PRN (Reason: muscle spasticity) Qty: 14 0RF No Action nitroglycerin 0.4 mg tablet, sublingual 0.4 mg SUBLINGUAL Q5-15M PRN (Reason: chest pain) epinephrine 0.3 mg/0.3 mL auto-injector 0.3 mg IM ONCE PRN (Reason: ALLERGY) Rx Instructions: as a single dose tizanidine 4 mg capsule 4 mg PO Q8H PRN (Reason: MUSCLE RELAXANT) verapamil 180 mg capsule,ext rel. pellets 24 hr 180 mg PO QHS Qty: 90 3RF pantoprazole 40 MG tablet 40 mg PO DAILY Patient Comments: acid reflux Eliquis 5 MG tablet 5 mg PO BID multivitamin with minerals 1 EACH tablet 1 tab PO DAILY meclizine 25 MG tablet 25 mg PO TID PRN PRN (Reason: dizziness, vertigo) Qty: 30 0RF acetaminophen 325 mg Tablet 650 mg PO Q4H PRN PRN (Reason: Pain 1-10 Or Fever) Qty: 0 0RF rosuvastatin 10 mg tablet 10 mg PO QDAY Qty: 90 3RF isosorbide mononitrate 30 mg tablet extended release 24 hr 30 mg PO QAM Qty: 90 3RF clopidogrel 75 mg tablet 75 mg PO DAILY Qty: 90 3RF Primary Care Provider: Jordan Zepeda Referrals: Oanh Mena MD [Med Staff - Active Staff] - Jordan Zepeda MD [Primary Care Provider] - Activity Restrictions/Additional Instructions: Your cardiac workup was largely normal. Your EKG did not show any acute changes. There does not appear to be any acute cardiac process going on right now. Continue to take your prescribed medication. Recommend using Tylenol and even prescribed a muscle relaxer for your pain. Please call the cardiology office tomorrow to arrange close outpatient follow-up Print Language: Stateless Disposition Disposition: Home, Self Care Discharge Date/Time: 01/10/25 23:20
[2025-01-10 21:35] LABS: Troponin T High Sens 2 HR 10 ng/L (<=22)
== END 2025-01-10 23:20 | disposition home or self-care (01) ==
PROVIDERS: Emergency Provider Emergency Medicine; PCP Family Medicine; Visit Provider Emergency Medicine
DX: R07.9 Chest pain, unspecified (principal); I42.8 Other cardiomyopathies; E11.9 Type 2 diabetes mellitus without complications; I25.10 Atherosclerotic heart disease of native coronary artery without angina pectoris; Z82.49 Family history of ischemic heart disease and other diseases of the circulatory system; E78.5 Hyperlipidemia, unspecified; I10 Essential (primary) hypertension; Z86.718 Personal history of other venous thrombosis and embolism; Z95.5 Presence of coronary angioplasty implant and graft; R20.2 Paresthesia of skin; M54.2 Cervicalgia; F41.9 Anxiety disorder, unspecified; R06.09 Other forms of dyspnea; I25.2 Old myocardial infarction; G47.33 Obstructive sleep apnea (adult) (pediatric); Z99.89 Dependence on other enabling machines and devices
CPT/HCPCS: 71045; 80048; 84484; 85025; 93005; 99285; A4216

== ENCOUNTER → 2025-01-13 | Outpatient (CLI) | payer MEDICARE, SELFPAY ==
[2024-12-06 08:26] VITALS: BMI 26.2
[2025-01-13 11:35] LABS: AST(SGOT) 24 U/L (<=37); Alanine Aminotransfer ALT/SGPT 25 U/L (<=46); Albumin, Serum 4.3 g/dL (3.4-4.8); Alkaline Phosphatase 65 U/L (40-129); Bilirubin, Direct 0.22 mg/dL (0.00-0.30); Cholesterol 132 mg/dL (<=200); Globulin 3.2 g/dL (2.2-4.2); Low Density Lipoprotein Calc. 73 mg/dL; Triglycerides 94 mg/dL; Very Low Density Lipoprotein 19 mg/dL (5-40); cholesterol:hdl ratio screen 3.24
== END | disposition home or self-care (01) ==
PROVIDERS: PCP Family Medicine; Referring Provider Student in an Organized Health Care Education/Training Program; Visit Provider Student in an Organized Health Care Education/Training Program
DX: I25.10 Atherosclerotic heart disease of native coronary artery without angina pectoris (principal); E78.5 Hyperlipidemia, unspecified; Z95.5 Presence of coronary angioplasty implant and graft
CPT/HCPCS: 36415; 80061; 80076

== ENCOUNTER → 2025-02-03 | Outpatient (CLI) | payer MEDICARE, SELFPAY ==
[2024-12-06 08:26] VITALS: BMI 26.2
--- OUTSIDE RECORDS SUMMARY | 2025-02-03 17:44 | XMS RPT_ITS | CCD ---
Author Organization [facility]iniSyde Care Team Providers Care [employer] Supervisor Name Role Phone SHAWN HAWKNETH Unavailable Unavailable CARINE EMIL Unavailable Unavailable YAZ ZEPEDA Unavailable Unavailable CARINE EMIL Unavailable Unavailable EMIL HAWK Unavailable Unavailable YAZ ZEPEDA Unavailable Unavailable CARINE EMIL Unavailable Unavailable CARINE EMIL Unavailable Unavailable YAZ ZEPEDA Unavailable Unavailable CARINE, EMIL E Unavailable Unavailable CARINE, EMIL E Unavailable Unavailable CARINE, EMIL E Unavailable Unavailable EMIL HAWK E Unavailable Unavailable YAZ ZEPEDA MD Primary Care Physician Dr. Yaz Zepeda Primary Care Provider 1([facility])[phone] Dr. Yaz Zepeda Referring Provider 1[facility])[phone] Dr. Reynaldo Jj Attending Provider 1[facility])[phone] Dr. Reynaldo jJ Other Provider 1([facility])[phone] Yaz Zepeda Primary Care Provider 1([facility])[phone] Dr. Yaz Zepeda Referring Provider 1[facility])[phone] Dr. Reynaldo Jj Attending Provider 1([facility])[phone] Dr. Reynaldo Jj Other Provider 1([phone] Yenifer ACUNA, MOLASSES AND CARAMEL OPERATOR-C Patricia Vasquez Attending Provider [phone] Dr. Ciro Torres Attending Provider [phone] Dr. Ciro Torres Other Provider Dr. Ciro Torres Referring Provider 1([facility])[phone] Dr. Ciro Torres Other Provider 1([phone] YAZ ZEPEDA MD Primary Care Unavailable YAZ ZEPEDA MD Attending Unavailable YAZ ZEPEDA MD Attending Unavailable YAZ ZEPEDA MD Primary Care Unavailable YAZ ZEPEDA MD Attending Unavailable YAZ ZEPEDA MD Primary Care Unavailable Dr. Yaz Zepeda Primary Care Provider Dr. Yaz Zepeda Referring Provider Dr. Daniel Gutiérrez Attending Provider Dr. Daniel Gutiérrez Referring Provider Dr. Daniel Gutiérrez Other Provider Dr. Kiko Oseguera Other Provider Duane AMOR, Yaz Cook Primary Care Provider [phone] Geovanny Aldridge MD Unavailable Geovanny Aldridge MD Unavailable Melissa AMOR, Ciro Espinoza Unavailable YAZ ZEPEDA Primary Care Unavailable Dr. Yaz Zepeda MD Primary Care Provider Dr. Yaz Zepeda MD Attending Provider Dr. Yaz Zepeda MD Referring Provider Oly AMOR, Dr. Small Attending Provider Roof MOLASSES AND CARAMEL OPERATOR-C, Will H Attending Provider Roof MOLASSES AND CARAMEL OPERATOR-C, Will H Referring Provider Roof MOLASSES AND CARAMEL OPERATOR-C, Will H Other Provider Dr. Oanh Mena MD Attending Provider Dr. Oanh Mena MD Admit Provider Dr. Oanh Mena MD Referring Provider Dr. Yaz Zepeda MD Primary Care Provider Dr. Yaz Zepeda MD Attending Provider Dr. Yaz Zepeda MD Referring Provider No, Alpa Attending Provider Unavailable Dr. Yaz Zepeda MD Primary Care Provider Dr. Yaz Zepeda MD Referring Provider Duane AMOR, Dr. Ortega Primary Care Provider Roof MOLASSES AND CARAMEL OPERATOR-C, Will H Attending Provider Roof MOLASSES AND CARAMEL OPERATOR-C, Will H Referring Provider Duane AMOR, Dr. Ortega Referring Provider Hadley AMOR, Dr. Russell Attending Provider Duane AMOR, Dr. Ortega Primary Care Provider Rajesh AMOR, Dr. Hugo Attending Provider Roof MOLASSES AND CARAMEL OPERATOR-C, Will H Attending Provider Roof MOLASSES AND CARAMEL OPERATOR-C, Will H Referring Provider Dr. Solange Patel DO Emergency Provider Price Mcgregor Attending Provider [phone] Rajesh, Oanh Referring Unavailable Rajesh, Oanh Attending Unavailable Zepeda, Yaz Primary Care Unavailable Rajesh, Oanh Attending Unavailable Rajesh, Oanh Referring Unavailable Zepeda, Yaz Primary Care Unavailable DemiterCindyPrice Attending Unavailable Demiter, Price Referring Unavailable Zepeda, Yaz Primary Care Unavailable Roof MOLASSES AND CARAMEL OPERATOR, Will H Attending Unavailable Zepeda, Yaz Referring Unavailable Zepeda, Yaz Primary Care Unavailable Rajesh, Oanh Attending Unavailable Zepeda, Yaz Primary Care Unavailable Roof MOLASSES AND CARAMEL OPERATOR, Will H Attending Unavailable Zepeda, Yaz Referring Unavailable Zepeda, Yaz Primary Care Unavailable Roof MOLASSES AND CARAMEL OPERATOR, Will H Consulting Unavailable Zepeda, Yaz Referring Unavailable Zepeda, Yaz Primary Care Unavailable Zepeda, Yaz Attending Unavailable Zepeda, Yaz Referring Unavailable Zepeda, Yaz Primary Care Unavailable Zepeda, Yaz Attending Unavailable Zepeda, Yaz Primary Care Unavailable Zepeda, Yaz Attending Unavailable Zepeda, Yaz Referring Unavailable Zepeda, Yaz Primary Care Unavailable Roof MOLASSES AND CARAMEL OPERATOR, Will H Attending Unavailable Zepeda, Yaz Referring Unavailable Rajesh, Oanh Attending Unavailable Zepeda, Yaz Referring Unavailable Zepeda, Yaz Primary Care Unavailable Geovanny Aldridge Attending Unavailable Zepeda, Yaz Primary Care Unavailable Rajesh, Oanh Attending Unavailable Zepeda, Yaz Primary Care Unavailable Rajesh, Oanh Referring Unavailable Rajesh, Oanh Attending Unavailable Zepeda, Yaz Primary Care Unavailable Roof MOLASSES AND CARAMEL OPERATOR, Will H Referring Unavailable Roof MOLASSES AND CARAMEL OPERATOR, Will H Attending Unavailable Zepeda, Yaz Primary Care Unavailable Zepeda, Yaz Primary Care Unavailable Zepeda, Yaz Attending Unavailable Zepeda, Yaz Referring Unavailable Rajesh, Oanh Referring Unavailable Rajesh, Oanh Attending Unavailable Zepeda, Yaz Primary Care Unavailable Rajesh, Oanh Referring Unavailable Rajesh, Oanh Attending Unavailable Zepeda, Yaz Primary Care Unavailable Rajesh, Oanh Referring Unavailable Rajesh, Oanh Admitting Unavailable Rajesh, Oanh Attending Unavailable Zepeda, Yaz Primary Care Unavailable Rajesh, Oanh Attending Unavailable Zepeda, Yaz Primary Care Unavailable Roof MOLASSES AND CARAMEL OPERATOR, Will H Referring Unavailable Roof MOLASSES AND CARAMEL OPERATOR, Will H Consulting Unavailable Rajesh, Oanh Attending Unavailable Zepeda, Yaz Primary Care Unavailable Rajesh, Oanh Consulting Unavailable Rajesh, Oanh Admitting Unavailable Drew Butcher Attending Unavailable Roof MOLASSES AND CARAMEL OPERATOR, Will H Referring Unavailable Zepeda, Yaz Primary Care Unavailable Alpa Mays Attending Unavailable Zepeda, Yaz Primary Care Unavailable Price Uriarte Attending Unavailable Zepeda, Yaz Primary Care Unavailable Zepeda, Yaz Referring Unavailable Roof MOLASSES AND CARAMEL OPERATOR, Will H Referring Unavailable Roof MOLASSES AND CARAMEL OPERATOR, Will H Attending Unavailable Zepeda, Yaz Primary Care Unavailable Roof MOLASSES AND CARAMEL OPERATOR, Will H Attending Unavailable Zepeda, Yaz Referring Unavailable Zepeda, Yaz Primary Care Unavailable Rajesh, Oanh Admitting Unavailable Rajesh, Oanh Attending Unavailable Rajesh, Oanh Referring Unavailable Zepeda, Yaz Primary Care Unavailable Zepeda, Yaz Primary Care Unavailable Zepeda, Yaz Referring Unavailable Zepeda, Yaz Attending Unavailable Solange Patel Attending Unavailable Zepeda, Yaz Primary Care Unavailable Zepeda, Yaz Primary Care Unavailable Roof MOLASSES AND CARAMEL OPERATOR, Will H Referring Unavailable Roof MOLASSES AND CARAMEL OPERATOR, Will H Attending Unavailable Zepeda, Yaz Primary Care Unavailable Roof MOLASSES AND CARAMEL OPERATOR, Will H Referring Unavailable Roof MOLASSES AND CARAMEL OPERATOR, Will H Attending Unavailable Allergies Allergy Classification Reported Allergen(s) Allergy Type Date of Onset Reaction(s) Facility (4 sources) Bee; Translations: [BEES] Propensity to adverse reactions (disorder) 09-08-19 18 Anaphylaxis [facility] Repository (8 sources) cefadroxil; Translations: [CEFADROXIL] Drug Allergy 11-07-19 07 Rash [facility] Repository (20 sources) niacin; Translations: [NIACIN] Drug Allergy 02-19-20 12 Eruption of skin (disorder), Unknown [facility] Repository (3 sources) OTHER; Translations: [OTHER] Propensity to adverse reactions (disorder) 11-07-19 07 AOF [facility] Repository (4 sources) azatadine / Pseudoephedrine; Translations: [azatadine-pseudoep hedrine] Drug Allergy [facility] (4 sources) Bee/Wasp/Ant venom Allergy to substance Swelling [facility] (3 sources) Pravastatin; Translations: [pravastatin] Drug Allergy side effects [facility] (20 sources) azatadine Drug Allergy 02-25-[address] [facility] Comment on above: AFFECTS BP(FROM [facility]) (20 sources) Cefadroxil; Translations: [cefadroxil hydrate] Drug Allergy 02-25-[address] [facility] (20 sources) Pseudoephedrine Drug Allergy 02-25-[address] [facility] Comment on above: AFFECTS BP (FROM [facility]) (20 sources) bee venom protein (honey bee) Allergy to substance 02-25-[address] [facility] (1 source) azatadine Drug Allergy 01-14-20 [facility] (1 source) Pseudoephedrine Drug Allergy 01-14-20 [facility] Rep[facility] (1 source) bee venom protein (honey bee) Drug allergy (disorder) 01-14-20 [facility] Rep[facility] Medications Current Medications Medication Drug Class(es) Dates Sig (Normalized) Sig (Original) acetaminophen 325 mg oral tablet (20 sources) Start: 04-09-2023 take 1-10 tablets by mouth every four hours as needed for pain Acetaminophen 325 mg Tablet Active 650 mg PO EVERY 4 HOURS NEEDED as needed for Pain 1-10 Or Fever 0 April 09, 2023 1:00am Start: 04-09-2023 take 650 mg by mouth every four hours as needed Acetaminophen Active 650 MG PO EVERY 4 HOURS NEEDED 0 April 09, 2023 12:00am Start: 05-07-2019 End: 07-16-2021 take 2 tablets by mouth every six hours as needed for pain Acetaminophen 325 MG tablet Discontinued 650 mg PO EVERY 6 HOURS NEEDED as needed for Fever, headache, pain() 0 May 07, 2019 1:00am July 16, 2021 10:35am Start: 05-07-2019 End: 07-16-2021 take 650 mg by mouth every six hours as needed Acetaminophen Discontinued 650 MG PO EVERY 6 HOURS NEEDED May 07, 2019 12:00am July 16, 2021 9:35am acetaminophen 325 mg / butalbital 50 mg / caffeine 40 mg oral tablet (4 sources) Barbiturate, Central Nervous System Stimulant, Methylxanthine Start: 04-11-2020 take 1 tablet by mouth every four hours as needed APAP/butalbital/caffeine 325-50-40 mg oral tablet (Fioricet) Dose = 1 tab(s), Oral, q4h, PRN as needed, # 30 tab(s), 1 Refill(s), Pharmacy: [facility], 159, cm, 02/29/20 16:30:00 EDT, Height, kg, 02/29/20 16:30:00 EDT, Dosing Weight Start Date: 04/11/20 Status: Ordered apixaban 5 mg oral tablet (20 sources) Factor Xa Inhibitor Start: 10-01-2018 take 1 tablet by mouth twice daily Apixaban (Eliquis) 5 MG tablet Active 5 mg PO TWICE A DAY October 01, 2018 6:44pm blood thinner Start: 01-06-2017 End: 10-01-2018 take 2 tablets by mouth twice daily, then take 1 tablet by mouth twice daily Apixaban (Eliquis) 5 MG tablet Discontinued 10 mg PO TWICE A DAY 0 January 06, 2017 12:00am October 01, 2018 6:44pm Take 10 mg po BID for 6 more days, then only take 5 mg po BID after that. Start: 01-05-2017 End: 01-06-2017 take 1 tablet by mouth twice daily Apixaban (Eliquis) 5 MG tablet Discontinued 5 mg PO TWICE A DAY January 05, 2017 12:00am January 06, 2017 11:53am Arnuity Ellipta 100 mcg inhalation powder (4 sources) Start: 07-09-2020 take 1 puff(s) by inhalation once daily Arnuity Ellipta 100 mcg inhalation powder 1 puff(s), Inhalation, qDay, # 30 EA, 0 Refill(s) Start Date: 07/09/20 Status: Ordered aspirin 81 mg oral tablet (20 sources) Platelet Aggregation Inhibitor, Nonsteroidal Anti-inflammatory Drug Start: 12-31-2016 take 1 dose by mouth once daily aspirin Dose : 81 mg =, Oral, qDay Start Date: 12/31/16 Status: Ordered Start: 08-08-2013 End: 09-29-2024 take 1 tablet by mouth at bedtime Aspirin 81 MG tablet,chewable Discontinued 81 mg PO AT BEDTIME August 08, 2013 12:00am September 29, 2024 1:54pm [facility] azithromycin 250 mg oral tablet (1 source) Macrolide Antimicrobial Start: 10-11-2021 End: 10-16-2021 azithromycin 250 mg oral tablet Dose : 250 mg = 1 tab(s), Oral, qDay, 2 tabs on day one, then one tab daily, X 5 day(s), # 6 tab(s), 0 Refill(s), 10/16/21 8:23:00 EDT, [facility]acy: [facility], 173, cm, 09/26/21 10:57:00 EDT, Height, 81.7 Start Date: 10/11/21 Stop Date: 10/16/21 Status: Ordered benzonatate 100 mg oral capsule (1 source) Non-narcotic Antitussive Start: 05-11-2019 take 1 capsule by mouth three times daily as needed benzonatate (TESSALON PERLES) 100 mg capsule Indications: COPD with exacerbation (HCC) Take 1 capsule by mouth three times daily as needed. 40 capsule 05/11/2019 Active Budesonide (1 source) Corticosteroid take 2 puff(s) by inhalation once daily in the morning BUDESONIDE (PULMICORT INHALATION) Inhale 2 Puffs as instructed every morning. Active clopidogrel 75 mg oral tablet (19 sources) P2Y12 Platelet Inhibitor Start: 09-29-2024 End: 12-05-2024 take 1 tablet by mouth once daily Clopidogrel 75 mg tablet Active 75 mg PO DAILY 90 December 05, 2024 1:00pm anti platelet doxycycline hyclate 100 mg oral capsule (1 source) Tetracycline-class Drug Start: 06-12-2024 End: 06-22-2024 take 1 capsule by mouth twice daily doxycycline hyclate (VIBRAMYCIN) 100 mg capsule Indications: Lower resp. tract infection Take 1 capsule (100 mg) by mouth two times a day for 10 days. 20 capsule 06/12/2024 06/22/2024 Active 12 hr guaiFENesin 600 mg extended release oral tablet (2 sources) Start: 10-11-2021 End: 10-25-2021 Mucinex 600 mg oral tablet, extended release Dose : 600 mg = 1 tab(s), Oral, q12h, X 14 day(s), # 28 tab(s), 0 Refill(s), 10/25/21 8:23:00 EDT, [facility]acy: [facility], 173, cm, 09/26/21 10:57:00 EDT, Height Start Date: 10/11/21 Stop Date: 10/25/21 Status: Ordered Start: 05-11-2019 take 2 tablets by mo [facility] twice daily guaiFENesin (MUCINEX) 600 mg 12 hr tablet Indications: COPD with exacerbation (HCC) Take 2 tablets by mouth twice daily. 30 tablet 05/11/2019 Active 24 hr isosorbide mononitrate 30 mg extended release oral tablet (20 sources) Nitrate Vasodilator Start: 10-13-2024 End: 10-13-2024 take 1 tablet by mouth once daily in the morning, then take 1 tablet by mouth every twenty-four hours Isosorbide Mononitrate 30 mg tablet extended release 24 hr Active 30 mg PO EVERY MORNING 90 October 13, 2024 12:52pm awaiting mail in RX Start: 05-28-2022 isosorbide mon onitrate 30 mg oral tablet, extended release Dose : 30 mg = 1 tab(s), Oral, qAM, # 30 tab(s), 2 Refill(s), [facility]: [id number], Chest pain Abdominal pain, 175, cm, 04/24/22 13:42:00 EST, Height, kg, 04/24/22 13:42:00 EST, Dosing Weight Start Date: 05/28/22 Status: Ordered Start: 09-26-2021 isosorbide mon onitrate 30 mg oral tablet, extended release Dose : 30 mg = 1 tab(s), Oral, qAM, # 30 tab(s), 5 Refill(s), [facility]: [facility], Chest pain Abdominal pain, 173, cm, 09/26/21 10:57:00 EDT, Height, kg, 09/26/21 10:57:00 EDT, Dosing Weight Start Date: 09/26/21 Status: Ordered Start: 07-17-2021 isosorbide mon onitrate 30 mg oral tablet, extended release Dose : 30 mg = 1 tab(s), Oral, qAM, # 30 tab(s), 0 Refill(s), Pharmacy: [facility], Chest pain Abdominal pain, 173, cm, 07/17/21 16:24:00 EST, Height, kg, 07/17/21 16:24:00 EST, Dosing Weight Start Date: 07/17/21 Status: Ordered meclizine hydrochloride 25 mg oral tablet (20 sources) Antiemetic Start: 02-24-2020 End: 07-25-2022 take 1 tablet by mouth three times daily as needed for dizziness Meclizine 25 MG tablet Active 25 mg PO 3 TIMES DAILY NEEDED as needed for dizziness, vertigo February 24, 2020 12:00am methylPREDNISolone 4 mg oral tablet (1 source) Corticosteroid Start: 10-11-2021 End: 10-17-2021 Medrol Dosepak 4 mg oral tablet 1 packet(s), Oral, qDay, as directed on package labeling, X 6 day(s), # 21 tab(s), 0 Refill(s), 10/17/21 8:23:00 EDT, Pharmacy: [facility], 173, cm, 09/26/21 10:57:00 EDT, Height Start Date: 10/11/21 Stop Date: 10/17/21 Status: Ordered MULTI-VITAMIN ORAL (1 source) MULTI-VITAMIN ORAL Take by mouth once daily. Active Multivitamin preparation (4 sources) Start: 01-19-2019 take 1 tablet by mouth once daily Multivitamin Dose = 1 tab(s), Oral, Daily, 0 Refill(s) Start Date: 01/19/19 Status: Ordered Multivitamin With Minerals (4 sources) Start: 05-06-2019 take 1 tablet by mouth once daily Multivitamin With Minerals Active 1 TABLET PO DAILY May 06, 2019 12:00am Start: 05-06-2019 take 1 tablet by stu th once daily Multivitamin With Minerals Active 1 TABLET PO DAILY May 06, 2019 1:00am Multivitamin With Minerals 1 EACH tablet (16 sources) Start: 05-06-2019 take 1 tablet by mouth once daily Multivitamin With Minerals 1 EACH tablet Active 1 {tbl} PO DAILY May 06, 2019 1:00am supplement Start: 05-06-2019 take 1 tablet by stu th once daily Multivitamin With Minerals 1 EACH tablet Active 1 {tbl} PO DAILY May 06, 2019 1:00am nitroglycerin 0.4 mg sublingual tablet (20 sources) Nitrate Vasodilator Start: 07-16-2021 Nitrostat 0.3 mg sublingual tablet Dose : 0.3 mg = 1 tab(s), Sublingual, q5min, PRN for chest pain, # 100 tab(s), 0 Refill(s), [facility]: [facility], 173, cm, 01/29/21 11:05:00 EDT, Height, kg, 04/17/21 14:35:00 EST, Dosing Weight Start Date: 07/16/21 Status: Ordered Start: 10-26-2018 End: 12-01-2024 Nitroglycerin 0.4 mg tablet, sublingual Active 0.4 mg SL every 5 to 15 minutes as needed for chest pain December 01, 2024 1:22pm Start: 10-26-2018 Nitroglycerin Active 0.4 MG SL every 5 to 15 minutes October 25, 2018 11:00pm Start: 04-12-2013 nitroglycerin sublingual 0.4 mg SL tablet Dissolve 1 tablet under the tongue as needed. FOR CHEST PAIN. IF NO RELIEF CALL [phone] 04/12/2013 Active Nitrostat 0.3 mg sublingual tablet (1 source) Start: 07-16-2021 Nitrostat 0.3 mg sublingual tablet Dose : 0.3 mg = 1 tab(s), Sublingual, q5min, PRN for chest pain, # 100 tab(s), 0 Refill(s), Pharmacy: [facility], 173, cm, 01/29/21 11:05:00 EDT, Height, kg, 04/17/21 14:35:00 EST, Dosing Weight Start Date: 07/16/21 Status: Ordered pantoprazole 40 mg delayed release oral tablet (20 sources) Proton Pump Inhibitor Start: 08-08-2013 End: 02-15-2023 take 1 tablet by mouth once daily Pantoprazole 40 MG tablet Active 40 mg PO DAILY August 08, 2013 12:00am reflux rosuvastatin calcium 10 mg oral tablet (20 sources) HMG-CoA Reductase Inhibitor Start: 10-13-2024 take 1 tablet by mouth once daily Rosuvastatin 10 mg tablet Active 10 mg PO daily 90 3 October 13, 2024 12:00am cholesterol Start: 04-06-2023 End: 10-13-2024 take 5 mg by mouth at bedtime Rosuvastatin 10 mg table t Discontinued 5 mg PO AT BEDTIME April 06, 2023 1:00am October 13, 2024 12:50pm cholesterol Start: 04-06-2023 take 5 mg by mouth at bedtime Rosuvastatin Active 5 MG PO AT BEDTIME April 06, 2023 12:00am Start: 06-03-2022 End: 04-06-2023 take 1 tablet by mouth at bedtime Rosuvastatin 10 mg tablet Discontinued 10 mg PO AT BEDTIME 90 3 June 03, 2022 12:54pm April 06, 2023 9:12am cholesterol Start: 01-05-2017 End: 06-03-2022 take 1 tablet by mouth at bedtime Rosuvastatin 5 MG tablet Discontinued 5 mg PO AT BEDTIME January 05, 2017 12:00am June 03, 2022 12:54pm cholesterol Symbicort 80 mcg-4.5 mcg/inh Inhaler (2 sources) Start: 03-20-2022 take 1 dose by inhalation twice daily Symbicort 80 mcg-4.5 mcg/inh Inhaler Dose = 2 puff(s), Inhalation, BID, # 6.9 gram(s), 0 Refill(s), [facility]: [id number], Bronchitis Heart murmur, 175, cm, 03/20/22 7:10:00 EST, Height Start Date: 03/20/22 Status: Ordered tiZANidine 4 mg oral tablet (20 sources) Central alpha-2 Adrenergic Agonist Start: 01-10-2025 take 1 tablet by mouth every eight hours as needed Tizanidine 4 mg tablet Active 4 mg PO Q8H as needed for muscle spasticity 14 0 January 10, 2025 12:00am Start: 10-18-2021 End: 01-13-2025 take 1 capsule by mouth every eight hours as needed Tizanidine 4 mg capsule Discontinued 4 mg PO Q8H as needed for MUSCLE RELAXANT October 18, 2021 12:00am January 13, 2025 8:52am Start: 07-17-2021 tiZANidine 4 m g oral tablet Dose : 4 mg = 1 tab(s), Oral, q8h, # 90 tab(s), 0 Refill(s), [facility]acy: [facility], Chest pain Abdominal pain, 173, cm, 07/17/21 16:24:00 EST, Height, kg, 07/17/21 16:24:00 EST, Dosing Weight Start Date: 07/17/21 Status: Ordered 24 hr verapamil hydrochloride 180 mg extended release oral capsule (20 sources) Calcium Channel Alexandra Start: 01-13-2025 take 1 capsule by mouth every twenty-four hours at bedtime Verapamil 180 mg capsule,ext rel. pellets 24 hr Active 120 mg PO AT BEDTIME January 13, 2025 8:52am blood pressure Start: 05-02-2021 take 1 capsule by mo [facility] once daily verapamil 180 mg/24 hours oral capsule, extended release Dose : 180 mg =, Oral, qDay, # 90 cap(s), 3 Refill(s), Pharmacy: [facility] [address], 173, cm, 01/29/21 11:05:00 EDT, Height, kg, 04/17/21 14:35:00 EST, Dosing Weight Start Date: 05/02/21 Status: Ordered Start: 10-26-2018 End: 01-13-2025 take 1 capsule by mouth every twenty-four hours at bedtime Verapamil 180 mg capsule,ext rel. pellets 24 hr Discontinued 180 mg PO AT BEDTIME 90 November 15, 2024 10:59am January 13, 2025 8:52am blood pressure Start: 05-14-2018 take 180 mg by mouth at bedtim e Verapamil Active 180 MG PO AT BEDTIME October 25, 2018 11:00pm Start: 08-08-2013 End: 10-26-2018 take 1 capsule by mouth every twenty-four hours at bedtime Verapamil 360 MG capsule,ext rel. pellets 24 hr Discontinued 180 mg PO AT BEDTIME August 08, 2013 12:00am October 26, 2018 10:21am Completed/Discontinued Medications Medication Drug Class(es) Dates Sig (Normalized) Sig (Original) acetaminophen 325 mg / HYDROcodone bitartrate 5 mg oral tablet (20 sources) Opioid Agonist Start: 10-01-2018 End: 10-03-2018 Hydrocodone-Acetami nophen 1 TABLET tablet Discontinued 1 {tbl} PO EVERY 4 HOURS NEEDED as needed for Pain 10 2 0 October 01, 2018 12:00am October 02, 2018 12:00am October 03, 2018 12:07am Pain of lower extremity Pain in leg, unspecified Start: 10-01-2018 End: 10-03-2018 take 1 tablet by mouth every four hours as needed Hydrocodone-Acetaminophen Discontinued 1 TABLET PO EVERY 4 HOURS NEEDED 10 2 September 30, 2018 11:00pm October 02, 2018 11:07pm [id number] 200 actuat albuterol 0.09 mg/actuat metered dose inhaler (10 sources) beta2-Adrenergic Agonist Start: 10-18-2021 End: 11-17-2021 take 2 puff(s) by inhalation four times daily as needed for wheezing ProAir HFA MDI (90 mcg/inh) inhalation aerosol 2 puff(s), Inhalation, QID, PRN wheezing, # 1 EA, 0 Refill(s), Pharmacy: [facility], Asthma, 173, cm, 10/18/21 13:25:00 EDT, Height, kg, 10/18/21 13:25:00 EDT, Dosing Weight Start Date: 10/18/21 Stop Date: 11/17/21 Status: Ordered Start: 05-11-2019 take 2 puff(s) by in halation every four hours as needed albuterol HFA (PROVENTIL HFA, VENTOLIN HFA) 90 mcg/actuation inhaler Indications: COPD with exacerbation (HCC) Inhale 2 Puffs as instructed every 4 hours as needed. 1 Inhaler 05/11/2019 Active Start: 01-19-2019 End: 02-18-2019 take 2 puff(s) by inhalation four times daily as needed for wheezing ProAir HFA MDI (90 mcg/inh) inhalation aerosol 2 puff(s), Inhalation, QID, PRN wheezing, # 1 EA, 0 Refill(s), Pharmacy: [facility]/pharmacy #[id number], Asthma Start Date: 01/19/19 Stop Date: 02/18/19 Status: Ordered Start: 01-19-2019 End: 02-18-2019 take 2 puff(s) by inhalation four times daily as needed for wheezing ProAir HFA MDI (90 mcg/inh) inhalation aerosol 2 puff(s), Inhalation, QID, PRN wheezing, # 1 EA, 0 Refill(s), Pharmacy: [facility]/pharmacy #[id number], Asthma Start Date: 01/19/19 Stop Date: 02/18/19 Status: Ordered Start: 04-01-2016 take 1 puff(s) by in halation every four hours as needed Albuterol Sulfate Active 2 PUFF INHALATION EVERY 4 HOURS NEEDED April 01, 2016 12:00am Start: 04-01-2016 take 1 puff(s) by in halation every four hours as needed Albuterol Sulfate Active 2 PUFF INHALATION EVERY 4 HOURS NEEDED April 01, 2016 1:00am Albuterol Sulfate 1 PUFF inhaler (16 sources) Start: 04-01-2016 End: 11-15-2024 Albuterol Sulfate 1 PUFF inh aler Discontinued 2 NMA INHALATION EVERY 4 HOURS NEEDED as needed for Sob &/Or Wheezing April 01, 2016 1:00am November 15, 2024 10:31am Start: 04-01-2016 Albuterol Sulf ate 1 PUFF inhaler Active 2 NMA INHALATION EVERY 4 HOURS NEEDED as needed for Sob &/Or Wheezing April 01, 2016 1:00am 0.6 ml enoxaparin sodium 100 mg/ml prefilled syringe (20 sources) Low Molecular Weight Heparin Start: 05-09-2022 End: 10-23-2022 Enoxaparin (Lovenox) 60 mg/0.6 mL syringe Discontinued 60 mg SC Q12H 6 0 May 09, 2022 4:42pm October 23, 2022 1:04pm Bridging for procedure while eliquis on HOLD [id number] 0.3 ml EPINEPHrine 1 mg/ml auto-injector (20 sources) alpha-Adrenergic Agonist, beta-Adrenergic Agonist, Catecholamine Start: 01-15-2022 EpiPen 2-Kai 0.3 mg injectable kit Dose : 0.3 mg = 1 kit, Intramuscular, AsDirected, PRN Allergic reaction, # 2 EA, 0 Refill(s), [id number], Allergic reaction to insect bite, 173, cm, 01/15/22 16:23:00 EDT, Height, kg, 01/15/22 16:23:00 EDT, Dosing Weight Start Date: 01/15/22 Status: Ordered Start: 02-03-2020 EpiPen 2-Kai 0 .3 mg injectable kit Dose : 0.3 mg = 1 kit, Intramuscular, AsDirected, PRN Allergic reaction, # 2 EA, 0 Refill(s), Pharmacy: [facility] #[id number], Allergic reaction to insect bite, 159, cm, 02/03/20 13:11:00 EDT, Height, kg, 02/03/20 13:11:00 EDT, Dosing Weight Start Date: 02/03/20 Status: Ordered Start: 02-03-2020 EpiPen 2-Kai 0 .3 mg injectable kit Dose : 0.3 mg = 1 kit, Intramuscular, AsDirected, PRN Allergic reaction, # 2 EA, 0 Refill(s), Pharmacy: [facility]/pharmacy #[id number], Allergic reaction to insect bite, 159, cm, 02/03/20 13:11:00 EDT, Height, kg, 02/03/20 13:11:00 EDT, Dosing Weight Start Date: 02/03/20 Status: Ordered Start: 11-01-2019 Epinephrine 0. 3 mg/0.3 mL auto-injector Active 0.3 mg IM ONCE as needed for ALLERGY November 01, 2019 12:00am as a single dose 30 actuat fluticasone furoate 0.1 mg/actuat dry powder inhaler (20 sources) Corticosteroid Start: 07-16-2021 End: 10-29-2023 take 100 ug by inhalation once daily Fluticasone Furoate (Arnuity Ellipta) 100 mcg/actuation blister with device Discontinued 1 NMA INHALATION DAILY July 16, 2021 1:00am October 29, 2023 9:50am Start: 05-06-2019 End: 11-01-2019 Fluticasone Furoate 100 MCG blister with device Discontinued 1 NMA INHALATION DAILY May 06, 2019 1:00am November 01, 2019 9:29am sob Start: 05-06-2019 End: 11-01-2019 take 1 puff(s) by inhalation once daily Fluticasone Furoate Discontinued 1 PUFF INHALATION DAILY May 06, 2019 12:00am November 01, 2019 8:29am 14 actuat fluticasone furoate 0.1 mg/actuat / umeclidinium 0.0625 mg/actuat / vilanterol 0.025 mg/actuat dry powder inhaler (20 sources) Anticholinergic, Corticosteroid, beta2-Adrenergic Agonist Start: 12-28-2019 End: 07-16-2021 Kcuzbvhulzx-Ldesjuulr-Oytsdo er 100-62.5-25 mcg blister with device Discontinued 1 NMA INHALATION DAILY December 28, 2019 12:00am July 16, 2021 10:34am Start: 12-28-2019 End: 07-16-2021 take 1 puff(s) by inhalation once daily Oxkkpqnaszs-Xyvzamlaw-Avtvgpql Discontin ued 1 PUFF INHALATION DAILY December 27, 2019 11:00pm July 16, 2021 9:34am ibuprofen 600 mg oral tablet (20 sources) Nonsteroidal Anti-inflammatory Drug Start: 07-16-2021 End: 08-30-2021 Ibuprofen 600 mg tablet Discontinued 600 mg PO THREE TIMES A DAY 35 0 July 16, 2021 1:00am August 30, 2021 1:38pm TID for a week, BID for a week isosorbide dinitrate 30 mg oral tablet (20 sources) Nitrate Vasodilator Start: 10-18-2021 End: 10-23-2022 take 1 tablet by mouth once daily Isosorbide Dinitrate 30 mg tablet Discontinued 30 mg PO DAILY October 18, 2021 12:00am October 23, 2022 1:05pm allow nitrate-free interval of 12-14 hrs per 24-hr period losartan potassium 50 mg oral tablet (20 sources) Angiotensin 2 Receptor Alexandra Start: 10-01-2018 End: 08-17-2024 Losartan 50 MG tablet Discontinued 25 mg PO DAILY October 01, 2018 12:00am August 17, 2024 1:02pm blood pressure Start: 10-01-2018 losartan 50 mg oral tablet Dose : 50 mg = 1 tab(s), Oral, qDay, # 90 tab(s), 3 Refill(s), Pharmacy: [facility], 172.5, cm, 02/20/22 8:24:00 EDT, Height, kg, 02/20/22 8:24:00 EDT, Dosing Weight Start Date: 02/20/22 Status: Ordered Start: 10-01-2018 take 25 mg by mouth once daily Losartan Active 25 MG PO DAILY September 30, 2018 11:00pm oxyCODONE hydrochloride 5 mg oral tablet (17 sources) Opioid Agonist Start: 04-09-2023 End: 10-29-2023 take 5-10 mg by mouth every four hours as needed for pain Oxycodone 5 mg Tablet Discontinued 5 - 10 mg PO EVERY 4 HOURS NEEDED as needed for Pain Score 4-10 10 5 0 April 09, 2023 October 29, 2023 9:51am Right inguinal hernia promethazine hydrochloride 12.5 mg oral tablet (1 source) Phenothiazine Start: 04-24-2022 End: 04-29-2022 promethazine 12.5 mg oral tablet Dose : 12.5 mg = 1 tab(s), Oral, q6hr, # 20 tab(s), 0 Refill(s), [facility]: [facility] #[id number], Bronchitis Asthma, 175, cm, 04/24/22 13:42:00 EST, Height Start Date: 04/24/22 Stop Date: 04/29/22 Status: Ordered Problems Active Problems Problem Classification Problem Date Documented Da te Episodic/Chronic Abdominal hernia (18 sources) Right inguinal hernia ; Translations: [Unilateral inguinal hernia, without obstruction or gangrene, not specified as recurrent] 03-26-2023 Episodic Abdominal pain (20 sources) Abdominal pain; Translations: [Unspecified abdominal pain] Onset: 5 10-18-2021 Episodic Asthma (6 sources) Asthma; Translations: [Asthmatic bronchitis] 12-12-2019 Chronic Chronic obstructive pulmonary disease and bronchiectasis (2 sources) Bronchitis 03-20-2022 Episodic Conditions associated with dizziness or vertigo (20 sources) Dizziness; Translations: [Dizziness and giddiness] Onset: 5 11-01-2019 Episodic Coronary atherosclerosis and other heart disease (20 sources) Atherosclerotic heart disease of [place] coronary artery without angina pectoris; Translations: [Non-obstructive atherosclerosis of coronary artery] Onset: 8 10-11-2021 Chronic Comment on above: Nonobstructive per c ardiac cath 01/09/2020 Coronary atherosclerosis and other heart disease (20 sources) Patient post percutaneous transluminal coronary angioplasty; Translations: [Coronary angioplasty status] Onset: 5 10-05-2024 Episodic Comment on above: [place] 2.50 X 18mm EMERITA to rPDA and [place] 3.5 X 30 mm EMERITA to proximal RCA 11/01/2024 3.0 x 22 mm [place] [employer] EMERITA to mLCx 09/29/24; [place] 2.50 X 18mm EMERITA to rPDA and [place] 3.5 X 30 mm EMERITA to proximal RCA 11/01/2024 Coronary atherosclerosis and other heart disease (9 sources) Coronary atherosclerosis and other heart disease Disorders of lipid metabolism (20 sources) Hypercholesterolemia; Translations: [Hyperlipidemia] Onset: 5 12-12-2019 Chronic Diverticulosis and diverticulitis (20 sources) Diverticular disease; Translations: [Diverticulosis of intestine, part unspecified, without perforation or abscess without bleeding] Chronic Esophageal disorders (20 sources) Talamantes's esophagus; Translations: [Gastroesophageal reflux disease without esophagitis] Onset: 5 Resolved: 5 12-12-2019 Chronic Essential hypertension (20 sources) Essential (primary) hypertension; Translations: [Essential hypertension] Onset: 8 Chronic Gastrointestinal hemorrhage (20 sources) Gastrointestinal hemorrhage; Translations: [Gastrointestinal hemorrhage, unspecified] Onset: 2 Resolved: 5 05-06-2019 Episodic Headache; including migraine (1 source) Frequent headache 06-25-2022 Episodic Heart valve disorders (20 sources) Aortic incompetence, non-rheumatic ; Translations: [Nonrheumatic aortic (valve) insufficiency] Onset: 5 10-29-2023 Chronic Heart valve disorders (20 sources) Heart murmur; Translations: [Cardiac murmur, unspecified] 03-20-2022 Episodic Nonspecific chest pain (20 sources) Chest pain; Translations: [Chest pain, unspecified] Onset: 5 Episodic Occlusion or stenosis of precerebral arteries (5 sources) Carotid artery occlusion; Translations: [Occlusion and stenosis of left carotid artery] Onset: 5 03-11-2021 Chronic Other ear and sense organ disorders (1 source) Tinnitus 06-25-2022 Episodic Other gastrointestinal disorders (1 source) Diarrhea, unspecified; Translations: [Diarrhea, unspecified] Onset: Episodic Other lower respiratory disease (3 sources) Respiratory symptom 10-11-2021 Episodic Other lower respiratory disease (1 source) Lower respiratory tract infection; Translations: [Unspecified acute lower respiratory infection] 06-12-2024 Episodic Other lower respiratory disease (20 sources) Dyspnea on exertion; Translations: [Other forms of dyspnea] 08-17-2024 Episodic Other lower respiratory disease (2 sources) Other forms of dyspnea; Translations: [Other forms of dyspnea] Onset: Episodic Other lower respiratory disease (1 source) Dyspnea, unspecified; Translations: [Dyspnea, unspecified] Onset: 5 Episodic Other nutritional; endocrine; and metabolic disorders (3 sources) Body mass index 25-29 - overweight 10-11-2021 Episodic Other screening for suspected conditions (not mental disorders or infectious disease) (20 sources) Electrocardiogram abnormal; Translations: [Abnormal electrocardiogram [ECG] [EKG]] Onset: 5 Resolved: 5 Episodic Other upper respiratory infections (2 sources) Acute sinusitis 10-18-2021 Episodic Franca-; endo-; and myocarditis; cardiomyopathy (20 sources) Acute nonspecific idiopathic pericarditis; Translations: [Pericarditis] Onset: 7 07-16-2021 Episodic Franca-; endo-; and myocarditis; cardiomyopathy (except that caused by tuberculosis or sexually transmitted disease) (20 sources) Cardiomyopathy; Translations: [Other cardiomyopathies] Onset: 9 Chronic Comment on above: EF 2006 was 25% reso lved Reported in 2006. EF has since normalized. Reported in 2005. Phlebitis; thrombophlebitis and thromboembolism (20 sources) Deep venous thrombosis; Translations: [Acute embolism and thrombosis of unspecified deep veins of unspecified lower extremity] Onset: 5 05-06-2019 Episodic Residual codes; unclassified (20 sources) Confusional state; Translations: [Disorientation, unspecified] 05-06-2019 Episodic Residual codes; unclassified (20 sources) Altered mental status; Translations: [Altered mental status, unspecified] 05-06-2019 Episodic Respiratory failure; insufficiency; arrest (adult) (9 sources) Respiratory failure; insufficiency; arrest (adult) Unclassified (1 source) Unknown / UNK(Unknown) Onset: Unclassified (13 sources) Status post percutaneous transluminal coronary angioplasty; Translations: [Z98.61 - Coronary angioplasty status] Unclassified (11 sources) Z95.5 - Presence of coronary angioplasty implant and graft,I42.8 - Other cardiomyopathies,I10 - Essential (primary) hypertension,I35.0 - Nonrheumatic aortic (valve) stenosis,Z86.718 - Personal history of other venous thrombosis and embolism,Z98.61 - Coronary angioplasty status,I25.10 - Atherosclerotic heart disease of [place] coronary artery without angina pectoris,I35.1 - Nonrheumatic aortic (valve) insufficiency,R01.1 - Cardiac murmur, unspecified,R06.09 - Other forms of dyspnea,I42.9 - Cardiomyopathy, unspecified,R07.9 - Chest pain, unspecified,R94.39 - Abnormal result of other cardiovascular function study,Z98.890 - Other specified postprocedural states,E78.5 - Hyperlipidemia, unspecified Unclassified (9 sources) Presence of stent in coronary artery Unclassified (9 sources) Nonischemic cardiomyopathy Unclassified (9 sources) History of recurrent deep vein thrombosis (DVT) Unclassified (9 sources) Chest pain in adult Unclassified (9 sources) Abnormal thallium stress test Unclassified (9 sources) History of left heart catheterization (LHC) Past or Other Problems Problem Classification Problem Date Documented Date Episodic/Chronic Malaise and fatigue (20 sources) Fatigue; Translations: [Other fatigue] Onset: 08-17-2024 01-14-2021 Episodic Other non-traumatic joint disorders (1 source) Pain in joints of unspecified hand; Translations: [Pain in joints of unspecified hand] Onset: 04-05-2024 Episodic Residual codes; unclassified (19 sources) History of cardiac catheterization; Translations: [Other specified postprocedural states] Onset: 01-09-2020 06-03-2022 Episodic Comment on above: LEFT MAIN: Angiograp hically normal; LEFT ANTERIOR DESCENDING ARTERY: PROX LAD: Mild luminal irregularities; MID LAD: Mild luminal irregularities; CIRCUMFLEX ARTERY:PROX CIRC: Mild luminal irregularitiesMID CIRC: Mild luminal irregularities less than 30%; RIGHT CORONARY ARTERY: Mild luminal irregularities; PROX RCA: 50 % StenosisRT PDA: Proximal - Mild luminal irregularities, Mid - Mild luminal irregularities per cardiac cath Dr. Torres 06/03/22; ;LEFT MAIN: Non-obstructive; LEFT ANTERIOR DESCENDING ARTERY: Mild luminal irregularities; CIRCUMFLEX ARTERY: Mild luminal irregularities; RIGHT CORONARY ARTERY: PROX RCA: 60 % Stenosis per cardiac cath Dr. Aldridge 01/09/20; 08/19/2011 Results Test Name Value Interpretation Reference Range Facility Cardiology Visit Reporton Cardiology Visit Report [facility] [address] [place] [address] OFFICE VISIT Date of Service: 01/13/25 MR#: [id number] Acct: [id number] Name: EMIL TRONCOSO Rep #: [id number] : 1955 Provider: TIMMY Olmstead Age/Sex: 69/M Location: [facility] Status: Signed HPI HPI History of Present Illness Details: Emil Troncoso is a 69-year-old male who presents to the office today for hospital follow-up. Patient was seen in the emergency department 01/10/2025 with concerns of chest pain x 3 days noted under his ribs and left side that worsened and he began feeling shortness of breath along with some pain rating to his neck and arm. His high-sensitivity troponins were 11 and then 10. Uncertain what has caused the pain; however, description consistent with spasms. Patient was discharged home. Patient has a history of coronary artery disease. He recently underwent drug-eluting stent to his RCA and right PDA 11/04/2024. Patient also has a history of nonischemic cardiomyopathy, hyperlipidemia and hypertension. Upon presentation today, patient reports 3-4 days prior to ED presentation he experienced chest pain that was mild. Day of presentation, he experienced severe chest pain while out shopping. He took a dose of nitro with some relief, returned home, took another nitro and noticed resolution in his pain. However, about 1 hour later, pain returned as severe lightning bolt feeling that caused him to drop over. This pain was noticed under his left rib cage with radiation up in to his neck, left arm, and down his left leg. He reports 01/11 (the next day), pain remained and worsened with bending over. Pain is exacerbated with certain movements. He rolled onto his left side a couple nights of go and this exacerbated his pain. Prior to his recent stents, he reports noticing shoulder pain that radiated down his left arm along with LE edema and dyspnea on exertion. He reports resolution of his LE edema. He reports chest pain improved yesterday and has not been noticed today. He was noticing muscle aches; however, he reports his PCP decreased verapamil and he noticed improvement in his muscle aches. He reports mild SOB with exertion; however, the is much improved since his stent placement. Further ROS below. Intake Vital Signs 11/15/24 10:27 01/10/25 17:04 01/13/25 06:52 Height 5 ft 9 in 5 ft 9 in 5 ft 9 in Weight: 172 lb BMI 25.4 BP 117/75 Blood Pressure Location Lt brachial Position Sitting Respiration 18 Pulse 65 Pulse Source Monitor Pulse Oximetry (%) 97 Intake Visit Reasons: S/P [facility] (01/10) [employer] Required: No Is patient in pain?: No Allergies bee venom protein (honey bee) Allergy (Verified 01/13/25 08:52) Anaphylaxis cefadroxil hydrate (From Duricef) Allergy (Verified 01/13/25 08:52) Rash niacin (From Niaspan Extended-Release) Allergy (Verified 01/13/25 08:52) Rash azatadine Adverse Reaction (Verified 01/13/25 08:52) Other pseudoephedrine Adverse Reaction (Verified 01/13/25 08:52) Other Medications ???Medication ???Instructions ???Recorded ???Confirmed ???Type pantoprazole 40 mg tablet,delayed 40 mg PO DAILY reflux 08/08/13 History release apixaban 5 mg tablet (Eliquis) 5 mg PO BID blood thinner 10/01/18 01/13/25 History multivitamin with minerals 1 tab PO DAILY supplement 05/06/19 01/13/25 History epinephrine 0.3 mg/0.3 mL 0.3 mg IM ONCE PRN ALLERGY 0 01/13/25 History injection, auto-injector meclizine 25 mg tablet 25 mg PO TID PRN PRN dizziness, 01/13/25 Rx vertigo #30 tabs acetaminophen 325 mg tablet 650 mg (2 x 325 mg) PO Q4H PRN PRN 04/09/23 01/13/25 Rx Pain 1-10 Or Fever #0 tabs isosorbide mononitrate 30 mg 30 mg PO QAM awaiting mail in RX 0 10/13/24 01/13/25 Rx tablet,extended release 24 hr #90 tabs rosuvastatin 10 mg tablet 10 mg PO QDAY cholesterol #90 tabs 10/13/24 01/13/25 Rx nitroglycerin 0.4 mg sublingual 0.4 mg sublingual Q5-15M PRN chest 12/01/24 01/13/25 History tablet pain clopidogrel 75 mg tablet 75 mg PO DAILY anti platelet #90 0 12/05/24 01/13/25 Rx tabs tizanidine 4 mg tablet 4 mg PO Q8H PRN muscle spasticity 01/10/25 01/13/25 Rx #14 tabs verapamil 180 mg 24 hr 120 mg PO QHS blood pressure 01/1301/13/25 History capsule,extended release Ejection fraction %: 65 Have you fallen in the past year?: No Nurse's Note: patient in ER 01-10-25 [facility] Medical History Nonischemic cardiomyopathy Wears dentures History of diverticulitis CAD (coronary artery disease) Right inguinal hernia Abnormal nuclear stress test Atherosclerotic heart disease of [place] coronary artery without angina pectoris Wears glasses Wears partial dentures C (more content not included)... Normal [facility] Lipid Profileon 01-13-2025 CHOL:HDL 3.[address] [facility] Comment on above: Performed By: #### L 500.4050, L501.6710, L100.0500, L501.9520, L506.1000, L501.1400, L500.4100, L503.6620, L101.9900, L3100.7950 #### [facility] [address] [place], [address] Cholesterol [Mass/Vol] 132 mg/dL Normal <=200 [facility] Comment on above: Result Comment: Chol esterol level, Desirable <200 mg/dL Borderline high cholesterol 200-239 mg/dL High cholesterol >=240 mg/dL Recommendations of the NCEP Adult Treatment Panel for the following risk-cutoff thresholds for the [place] population. Performed By: #### L 500.4050, L501.6710, L100.0500, L501.9520, L506.1000, L501.1400, L500.4100, L503.6620, L101.9900, L3100.7950 #### [facility] [address] [place], [address] Cholesterol in HDL [Mass/Vol] 41 mg/dL Normal [facility] Comment on above: Result Comment: Gia onal Cholesterol Education Program (NCEP) guidelines: <40 mg/dL: Low HDL-cholesterol (major risk factor for CHD) >= 60 mg/dL: High HDL-cholesterol (negative risk factor for CHD) HDL-cholesterol is affected by a number of factors, e.g. smoking, exercise, hormones, sex and age. Performed By: #### L 500.4050, L501.6710, L100.0500, L501.9520, L506.1000, L501.1400, L500.4100, L503.6620, L101.9900, L3100.7950 #### [facility] [address] [place], [address] Cholesterol in LDL [Mass/Vol] 73 mg/dL Normal [facility] Comment on above: Result Comment: Bord kjutxs=442-379 mg/dL Higher Wbeq=941 mg/dL or greater Friedwald Equation for LDL-C Performed By: #### L 500.4050, L501.6710, L100.0500, L501.9520, L506.1000, L501.1400, L500.4100, L503.6620, L101.9900, L3100.7950 #### [facility] [address] [place], [address] Cholesterol in VLDL [Mass/Vol] 19 mg/dL Normal 5-40 [facility] Comment on above: Performed By: #### L 500.4050, L501.6710, L100.0500, L501.9520, L506.1000, L501.1400, L500.4100, L503.6620, L101.9900, L3100.7950 #### [facility] [address] [place], [address] Triglyceride [Mass/Vol] 94 mg/dL Normal [facility] Comment on above: Result Comment: The drugs N-Acetylcysteine and Metamizole may falsely depress this assay. Normal range: <150 mg/dL Borderline High: 150-199 mg/dL High: 200-499 mg/dL Very High: >500 mg/dL Performed By: #### L 500.4050, L501.6710, L100.0500, L501.9520, L506.1000, L501.1400, L500.4100, L503.6620, L101.9900, L3100.7950 #### [facility] [address] [place], [address] Liver Profileon 01-13-2025 Albumin [Mass/Vol] 4.3 g/dL Normal 3.4-4.8 [facility] Comment on above: Performed By: #### L 500.4050, L501.6710, L100.0500, L501.9520, L506.1000, L501.1400, L500.4100, L503.6620, L101.9900, L3100.7950 #### [facility] [address] [place], [address] ALK PHOS 65 U/L Normal 40-129 [facility] Comment on above: Performed By: #### L 500.4050, L501.6710, L100.0500, L501.9520, L506.1000, L501.1400, L500.4100, L503.6620, L101.9900, L3100.7950 #### [facility] [address] [place], [address] ALT [Catalytic activity/Vol] 25 U/L Normal <=46 [facility] Comment on above: Performed By: #### L 500.4050, L501.6710, L100.0500, L501.9520, L506.1000, L501.1400, L500.4100, L503.6620, L101.9900, L3100.7950 #### [facility] [address] [place], [place], [id number] (209) AST [Catalytic activity/Vol] 24 U/L Normal <=37 [facility] Comment on above: Performed By: #### L 500.4050, L501.6710, L100.0500, L501.9520, L506.1000, L501.1400, L500.4100, L503.6620, L101.9900, L3100.7950 #### [facility] [address] [place], [address] Bilirubin [Mass/Vol] 0.55 mg/dL Normal 0.00-1.30 [facility] Comment on above: Performed By: #### L 500.4050, L501.6710, L100.0500, L501.9520, L506.1000, L501.1400, L500.4100, L503.6620, L101.9900, L3100.7950 #### [facility] [address] [place], [address] Bilirubin.direct [Mass/Vol] 0.22 mg/dL Normal 0.00-0.30 [facility] Comment on above: Performed By: #### L 500.4050, L501.6710, L100.0500, L501.9520, L506.1000, L501.1400, L500.4100, L503.6620, L101.9900, L3100.7950 #### [facility] [address] [place], [address] Globulin (S) [Mass/Vol] 3.2 g/dL Normal 2.2-4.2 [facility] Comment on above: Performed By: #### L 500.4050, L501.6710, L100.0500, L501.9520, L506.1000, L501.1400, L500.4100, L503.6620, L101.9900, L3100.7950 #### [facility] [address] [place], [address] T PROT 7.5 g/dL Normal 5.9-8.4 [facility] Comment on above: Performed By: #### L 500.4050, L501.6710, L100.0500, L501.9520, L506.1000, L501.1400, L500.4100, L503.6620, L101.9900, L3100.7950 #### [facility] [address] [place], [place], [id number] 12 Lead EKGon 01-10-2025 12 Lead EKG [facility] [address] [place] [address] 12 Lead EKG 01/10/25 1714 MR#: [id number] Acct: [id number] Name: EMIL TRONCOSO Rep #: [id number] : 1955 69 From: Arlin Mcgarry MD Attending Dr: Status: DEP ER Ordering Dr: Solange Patel DO Date: 01/10/25 Location: ED Sex: M C Admitted: Test Reason : CP Blood Pressure : */* mmHG Vent. Rate : 67 BPM Atrial Rate : 67 BPM P-R Int : 176 ms QRS Dur : 88 ms QT Int : 394 ms P-R-T Axes : 21 -12 21 degrees QTcB Int : 416 ms Normal sinus rhythm Minimal voltage criteria for LVH, may be normal variant ( R in aVL ) Cannot rule out Inferior infarct , age undetermined Abnormal ECG Confirmed by Arlin Mcgarry ([id number]), photo editor VIVIANA SALGADO ([id number]) on 01/11/2025 10:33:19 AM Referred By: BB/CG Confirmed By: Arlin Mcgarry 01/11/25 1033 Date Arlin Mcgarry MD CC: Dr. Solange Patel, DO; Dr. Yaz Zepeda MD Signed Normal [facility] Absolute lymphocyte countOrd ered By: Solange Patel on 01-10-2025 Lymphocytes Auto (Unsp spec) [#/Vol] 2.03 10*3/uL 0.83-4.51 [facility] Absolute neutrophil countOrd ered By: Solange Patel on 01-10-2025 Neutrophils (Bld) [#/Vol] 4.9 10*3/uL 2.0-7.7 [facility] Anion gap in Serum or Plasma Ordered By: Solange Patel on 01-10-2025 Anion gap [Moles/Vol] 13 mmol/L - [facility] Automated lymphocyte count a s percentage of total leukocytesOrdered By: Solange Patel on 01-10-2025 Lymphocytes/100 WBC Auto (Unsp spec) 24.9 % - [facility] BUN/creatinine ratioOrdered By: Solange Patel on 01-10-2025 Urea nitrogen/Creatinine [Mass ratio] 12.9 mg/mg - [facility] Basic Metabolic Profile (BMP )on 01-10-2025 BUN/CRE 12.9 RATIO Normal 02-27 [facility] Comment on above: Performed By: #### L 500.4050, L501.6710, L100.0500, L501.9520, L506.1000, L501.1400, L500.4100, L503.6620, L101.9900, L3100.7950 #### [facility] [address] [place], [address] Calcium [Mass/Vol] 9.7 mg/dL Normal 7.6-11.0 [facility] Comment on above: Performed By: #### L 500.4050, L501.6710, L100.0500, L501.9520, L506.1000, L501.1400, L500.4100, L503.6620, L101.9900, L3100.7950 #### [facility] [address] [place], [place], [phone] (894) Chloride [Moles/Vol] 103 mmol/L Normal 98-108 [facility] Comment on above: Performed By: #### L 500.4050, L501.6710, L100.0500, L501.9520, L506.1000, L501.1400, L500.4100, L503.6620, L101.9900, L3100.7950 #### [facility] [address] [place], [place], [phone] (945) CO2 [Moles/Vol] 24.0 mmol/L Normal 21.0-32.0 [facility] Comment on above: Performed By: #### L 500.4050, L501.6710, L100.0500, L501.9520, L506.1000, L501.1400, L500.4100, L503.6620, L101.9900, L3100.7950 #### [facility] [address] [place], [address] Creatinine [Mass/Vol] 0.78 mg/dL Normal 0.70-1.20 [facility] Comment on above: Performed By: #### L 500.4050, L501.6710, L100.0500, L501.9520, L506.1000, L501.1400, L500.4100, L503.6620, L101.9900, L3100.7950 #### [facility] [address] [place], [address] ECRCL 84.69 ml/min Normal 50-250 [facility] Comment on above: Performed By: #### L 500.4050, L501.6710, L100.0500, L501.9520, L506.1000, L501.1400, L500.4100, L503.6620, L101.9900, L3100.7950 #### [facility] [address] [place], [place], [phone] GAP 13 Normal 5-15 [facility] Comment on above: Performed By: #### L 500.4050, L501.6710, L100.0500, L501.9520, L506.1000, L501.1400, L500.4100, L503.6620, L101.9900, L3100.7950 #### [facility] [address] [place], [place], [id number] GFR/1.73 sq M.predicted among non-blacks MDRD (S/P/Bld) [Vol rate/Area] 95 mL/min/{1.73_m2} Normal >60 [facility] Comment on above: Result Comment: mL/m in/1.73m2 CKD-EPI Creatinine Equation (2020) Performed By: #### L 500.4050, L501.6710, L100.0500, L501.9520, L506.1000, L501.1400, L500.4100, L503.6620, L101.9900, L3100.7950 #### [facility] [address] [place], [place], [phone] Glucose [Mass/Vol] 93 mg/dL Normal 70-99 [facility] Comment on above: Performed By: #### L 500.4050, L501.6710, L100.0500, L501.9520, L506.1000, L501.1400, L500.4100, L503.6620, L101.9900, L3100.7950 #### [facility] [address] [place], [place], [phone] Potassium [Moles/Vol] 4.0 mmol/L Normal 3.3-5.1 [facility] Comment on above: Performed By: #### L 500.4050, L501.6710, L100.0500, L501.9520, L506.1000, L501.1400, L500.4100, L503.6620, L101.9900, L3100.7950 #### [facility] [address] [place], [place], [id number] Sodium [Moles/Vol] 140 mmol/L Normal 133-145 [facility] Comment on above: Performed By: #### L 500.4050, L501.6710, L100.0500, L501.9520, L506.1000, L501.1400, L500.4100, L503.6620, L101.9900, L3100.7950 #### [facility] [address] [place], [place], [phone] Urea nitrogen [Mass/Vol] 10 mg/dL Normal 4-19 [facility] Comment on above: Performed By: #### L 500.4050, L501.6710, L100.0500, L501.9520, L506.1000, L501.1400, L500.4100, L503.6620, L101.9900, L3100.7950 #### [facility] [address] [facility] [place], [place], [id number] Basophil percentageOrdered B y: Solange Patel on 01-10-2025 Basophils/100 WBC (Bld) 0.5 % 0-1 [facility] CBC W/Diff, Automatedon Absolute Lymph 2.03 X10 3/uL Normal 0.83-4.51 [facility] Comment on above: Performed By: #### L 500.4050, L501.6710, L100.0500, L501.9520, L506.1000, L501.1400, L500.4100, L503.6620, L101.9900, L3100.7950 #### [facility] [address] [place], [address] Absolute Neut 4.9 X10 3/uL Normal 2.0-7.7 [facility] Comment on above: Performed By: #### L 500.4050, L501.6710, L100.0500, L501.9520, L506.1000, L501.1400, L500.4100, L503.6620, L101.9900, L3100.7950 #### [facility] [address] [place], [address] Basophils/100 WBC (Bld) 0.5 % Normal 0-1 [facility] Comment on above: Performed By: #### L 500.4050, L501.6710, L100.0500, L501.9520, L506.1000, L501.1400, L500.4100, L503.6620, L101.9900, L3100.7950 #### [facility] [address] [place], [address] Eosinophils/100 WBC (Bld) 2.3 % Normal 0-5 [facility] Comment on above: Performed By: #### L 500.4050, L501.6710, L100.0500, L501.9520, L506.1000, L501.1400, L500.4100, L503.6620, L101.9900, L3100.7950 #### [facility] [address] [place], [address] Erythrocyte distribution width (RBC) [Ratio] 13.7 % Normal 11.6-14.6 [facility] Comment on above: Performed By: #### L 500.4050, L501.6710, L100.0500, L501.9520, L506.1000, L501.1400, L500.4100, L503.6620, L101.9900, L3100.7950 #### [facility] [address] [place], [address] Hematocrit (Bld) [Volume fraction] 45.4 % Normal 40-54 [facility] Comment on above: Performed By: #### L 500.4050, L501.6710, L100.0500, L501.9520, L506.1000, L501.1400, L500.4100, L503.6620, L101.9900, L3100.7950 #### [facility] [address] [place], [address] Hemoglobin (Bld) [Mass/Vol] 15.5 g/dL Normal 13.0-16.5 [facility] Comment on above: Performed By: #### L 500.4050, L501.6710, L100.0500, L501.9520, L506.1000, L501.1400, L500.4100, L503.6620, L101.9900, L3100.7950 #### [facility] [address] [place], [address] IG% 0.600 Normal 0.0-0.9 [facility] Comment on above: Result Comment: IG% - Immature Granulocytes (promyelocytes, myelocytes and metamyelocytes) > 1% indicates that a LEFT SHIFT is Present. Performed By: #### L 500.4050, L501.6710, L100.0500, L501.9520, L506.1000, L501.1400, L500.4100, L503.6620, L101.9900, L3100.7950 #### [facility] [address] [place], [address] Lymphocytes/100 WBC (Bld) 24.9 % Normal 19-41 [facility] Comment on above: Performed By: #### L 500.4050, L501.6710, L100.0500, L501.9520, L506.1000, L501.1400, L500.4100, L503.6620, L101.9900, L3100.7950 #### [facility] [address] [place], [address] MCH (RBC) [Entitic mass] 30.5 pg Normal 27.0-32.0 [facility] Comment on above: Performed By: #### L 500.4050, L501.6710, L100.0500, L501.9520, L506.1000, L501.1400, L500.4100, L503.6620, L101.9900, L3100.7950 #### [facility] [address] [place], [address] MCHC (RBC) [Mass/Vol] 34.1 g/dL Normal 32-36 [facility] Comment on above: Performed By: #### L 500.4050, L501.6710, L100.0500, L501.9520, L506.1000, L501.1400, L500.4100, L503.6620, L101.9900, L3100.7950 #### [facility] [address] [place], [address] MCV (RBC) [Entitic vol] 89.4 fL Normal 80-94 [facility] Comment on above: Performed By: #### L 500.4050, L501.6710, L100.0500, L501.9520, L506.1000, L501.1400, L500.4100, L503.6620, L101.9900, L3100.7950 #### [facility] [address] [place], [address] Monocytes/100 WBC (Bld) 11.0 % High 0-10 [facility] Comment on above: Performed By: #### L 500.4050, L501.6710, L100.0500, L501.9520, L506.1000, L501.1400, L500.4100, L503.6620, L101.9900, L3100.7950 #### [facility] [address] [place], [address] Neutrophils/100 WBC (Bld) 60.7 % Normal 47-70 [facility] Comment on above: Performed By: #### L 500.4050, L501.6710, L100.0500, L501.9520, L506.1000, L501.1400, L500.4100, L503.6620, L101.9900, L3100.7950 #### [facility] [address] [place], [address] Nucleated RBC (Bld) [#/Vol] 0 10*3/uL Normal 0-5 [facility] Comment on above: Performed By: #### L 500.4050, L501.6710, L100.0500, L501.9520, L506.1000, L501.1400, L500.4100, L503.6620, L101.9900, L3100.7950 #### [facility] [address] [facility] [place], [address] Platelet mean volume (Bld) [Entitic vol] 9.6 fL Normal 6.2-12.0 [facility] Comment on above: Performed By: #### L 500.4050, L501.6710, L100.0500, L501.9520, L506.1000, L501.1400, L500.4100, L503.6620, L101.9900, L3100.7950 #### [facility] [address] [place], [address] Platelets (Bld) [#/Vol] 307 10*3/uL Normal 150-450 [facility] Comment on above: Performed By: #### L 500.4050, L501.6710, L100.0500, L501.9520, L506.1000, L501.1400, L500.4100, L503.6620, L101.9900, L3100.7950 #### [facility] [address] [place], [address] RBC (Bld) [#/Vol] 5.08 10*6/uL Normal 4.6-6.2 [facility] Comment on above: Performed By: #### L 500.4050, L501.6710, L100.0500, L501.9520, L506.1000, L501.1400, L500.4100, L503.6620, L101.9900, L3100.7950 #### [facility] [address] [place], [address] (256) RDW SD 45.1 fl High 35.1-43.9 [facility] Comment on above: Performed By: #### L 500.4050, L501.6710, L100.0500, L501.9520, L506.1000, L501.1400, L500.4100, L503.6620, L101.9900, L3100.7950 #### [facility] [address] [facility] [place], [place], [phone] (348) WBC (Bld) [#/Vol] 8.2 10*3/uL Normal 4.4-11.0 [facility] Comment on above: Performed By: #### L 500.4050, L501.6710, L100.0500, L501.9520, L506.1000, L501.1400, L500.4100, L503.6620, L101.9900, L3100.7950 #### [facility] [address] [facility] [place], [place], [id number] Carbon dioxide, total [Moles /volume] in Central venous bloodOrdered By: Solange Patel on 01-10-2025 CO2 [Moles/Vol] 24.0 mmol/L 21.0-32.0 [facility] Chest 1 View (Portable)on Chest 1 View (Portable) [facility] Imaging Services [address] [place], [place] [phone] Chest 1 View (Portable) MR#: [id number] Acct: [id number] Name: EMIL TRONCOSO Rep #: [id number] : 1955 M 69 From: Deirdre Pritchett PCP: Dr. Yaz Zepeda MD Status: [facility] ER Study: Chest 1 View (Portable) Date of Exam: 01/10/25 Exam# [id number] Ordering Dr: Solange Patel DO PROCEDURE: CHEST 1 VIEW (PORTABLE) 01/10/2025 REASON FOR EXAM: CHEST PAIN TECHNIQUE: Frontal view of the chest. COMPARISON: 09/19/24 FINDINGS: Left base subsegmental atelectasis. no focal consolidation. No pleural effusion or pneumothorax. Cardiac silhouette is within normal limits. No acute fractures. RAD/Chest 1 View (Portable) IMPRESSION: Left base subsegmental atelectasis. no focal consolidation. Reading Location: [facility] CC: Dr. Solange Patel DO; Dr. Yaz Zepeda MD Crew Team Member: Signed Normal [facility] Chloride assayOrdered By: Jamel Patel on 01-10-2025 Chloride [Moles/Vol] 103 mmol/L 98-108 [facility] Emergency Department Summary on 01-10-2025 Emergency Department Summary [facility] Medical Records Department [address] [place] [address] Emergency Department Summary 01/10/25 MR#: [id number] Acct: [id number] Name: EMIL TRONCOSO Rep #: [id number] : 1955 69 From: Solange Patel DO PCP: Dr. Yaz Zepeda MD Status:[facility] ER Location: ED HPI History of Present Illness Chief Complaint: Chest Pain Informant: patient Narrative Narrative: Patient 69-year-old male with history of coronary artery disease (has received 3 stents this summer), obstructive sleep apnea on CPAP, DVT, aortic valve disease, hypertension, hyperlipidemia, Talamantes's esophagus and nonischemic cardiomyopathy presenting for chest pain. Patient states for the past 3 days he has had intermittent pain under his ribs on the left side. Today became worse and he started feel short of breath because of the severity of the pain. He will get spasms of pain at his left chest that radiate to his left neck and his arm. He states the pain feels like a lightening bolt. Today he was talking to his son and they had an episode of pain which dropped him. He has been better with rest and worse with movements but not always reproducible with movements. He has been compliant with his medications. He did take nitroglycerin prior to arrival which he had at home and it did help ease up the pain. He states he has waves of pain. He denies any associated GI or symptoms. States has been compliant with his medication which include Eliquis, Plavix and isosorbide mononitrate. No other complaints or concerns reported at this time. Chart review shows the patient had cardiac catheterization on 12/19/2024 and received drug-eluting stent to the RCA and right PDA proximal. This performed with Dr. Mena. [facility] Medical History Nonischemic cardiomyopathy Wears dentures History of diverticulitis CAD (coronary artery disease) Right inguinal hernia Abnormal nuclear stress test Atherosclerotic heart disease of [place] coronary artery without angina pectoris Wears glasses Wears partial dentures Cancer Depression Anxiety Abrasion Arthritis Fatty liver Easy bruising Excessive bleeding Restless legs Vertigo Gastric reflux Sleep apnea CPAP (continuous positive airway pressure) dependence Shortness of breath on exertion Non-smoker History of edema Leg cramps History of echocardiogram Hypertension History of heart attack Chest pain History of stress test Cardiology follow-up encounter Abdominal pain Vertigo Squamous cell carcinoma Elevated troponin I level (2005) Nonobstructive atherosclerosis of coronary artery Recurrent deep vein thrombosis (DVT) Obstructive sleep apnea Gastroesophageal reflux disease Talamantes's esophagus Paroxysmal supraventricular tachycardia Osteoarthritis Insomnia Carotid artery occlusion without infarction Diverticulitis Type 2 diabetes mellitus without complication Asthma Myalgia Facial paresthesia (07/2018) Pericarditis Migraines History of GI bleed Hyperlipidemia Essential hypertension GI bleed Home Medications ???Medication ???Instructions ???Recorded ???Last Taken ???Type pantoprazole 40 mg tablet,delayed 40 mg PO DAILY reflux 08/08/13 History release apixaban 5 mg tablet (Eliquis) 5 mg PO BID blood thinner 10/01/18 10/28/24 History multivitamin with minerals 1 tab PO DAILY supplement 05/06/19 09/29/24 History epinephrine 0.3 mg/0.3 mL 0.3 mg IM ONCE PRN ALLERGY 0 Unknown History injection, auto-injector meclizine 25 mg tablet 25 mg PO TID PRN PRN dizziness, Unknown Rx vertigo #30 tabs tizanidine 4 mg capsule 4 mg PO Q8H PRN MUSCLE RELAXANT Unknown History acetaminophen 325 mg tablet 650 mg (2 x 325 mg) PO Q4H PRN PRN 04/09/23 Unknown Rx Pain 1-10 Or Fever #0 tabs isosorbide mononitrate 30 mg 30 mg PO QAM awaiting mail in RX 0 10/13/24 11/01/24 Rx tablet,extended release 24 hr #90 tabs rosuvastatin 10 mg tablet 10 mg PO QDAY cholesterol #90 tabs 10/13/24 Unknown Rx verapamil 180 mg 24 hr 180 mg PO QHS blood pressure #90 0 11/15/24 Unknown Rx capsule,extended release caps nitroglycerin 0.4 mg sublingual 0.4 mg sublingual Q5-15M PRN chest 12/01/24 Unknown History tablet pain clopidogrel 75 mg tablet 75 mg PO DAILY anti platelet #90 0 12/05/24 Unknown Rx tabs tizanidine 4 mg tablet 4 mg PO Q8H PRN muscle spasticity 01/10/25 Unknown Rx #14 tabs Allergy/AdvReac Type Severity Reaction Status Date / Time bee venom protein (honey bee) Allergy Anaphylaxis Verified 01/10/25 17:07 cefadroxil hydrate (From Allergy Rash Verified 01/10/25 17:07 [facility] niacin (From Niaspan Allergy Rash Verified 01/10/25 17:07 Extended-Release) azatadine AdvReac Other Verified 01/10/25 17:07 (more content not included)... Normal [facility] Eosinophil percentageOrdered By: Solange Patel on 01-10-2025 Eosinophils/100 WBC (Bld) 2.3 % 0-5 [facility] Erythrocyte distribution wid th ratioOrdered By: Solange Patel on 01-10-2025 Erythrocyte distribution width (RBC) [Ratio] 13.7 % 11.6-14.6 [facility] Erythrocyte distribution wid th standard deviationOrdered By: Solange Patel on 01-10-2025 Erythrocyte distribution width (RBC) [Ratio] 45.1 fl High 35.1-43.9 [facility] Glomerular filtration rate ( GFR) estimation/1.73 sq m using serum, plasma, or whole bOrdered By: Solange Patel on 01-10-2025 GFR/1.73 sq M.predicted among non-blacks MDRD (S/P/Bld) [Vol rate/Area] 95 mL/min/{1.73_m2} >60 [facility] Comment on above: mL/min/1.73m2 CKD-EP I Creatinine Equation (2020) Hematocrit Auto (Bld) [Volum e fraction]Ordered By: Solange Patel on 01-10-2025 Hematocrit (Bld) [Volume fraction] 45.4 % 40-54 [facility] Hemoglobin measurementOrdere d By: Solange Patel on 01-10-2025 Hemoglobin (Bld) [Mass/Vol] 15.5 g/dL 13.0-16.5 [facility] Immature granulocytes/100 WB C Auto (Bld)Ordered By: Solange Patel on 01-10-2025 Immature granulocytes/100 WBC (Bld) 0.600 % 0.0-0.9 [facility] Comment on above: IG% - Immature Granu locytes (promyelocytes, myelocytes and metamyelocytes) > 1% indicates that a LEFT SHIFT is Present. L501.4021on 01-10-2025 Trop T High Sen 11 ng/L Normal <=22 [facility] Comment on above: Performed By: #### L 500.4050, L501.6710, L100.0500, L501.9520, L506.1000, L501.1400, L500.4100, L503.6620, L101.9900, L3100.7950 #### [facility] [address] [place], [place], [id number] MCV (mean corpuscular volume ) determinationOrdered By: Solange Patel on 01-10-2025 MCV (RBC) [Entitic vol] 89.4 fL 80-94 [facility] Mean corpuscular hemoglobin (MCH) determinationOrdered By: Solange Patel on 01-10-2025 MCH (RBC) [Entitic mass] 30.5 pg 27.0-32.0 [facility] Mean corpuscular hemoglobin concentration (MCHC) determinationOrdered By: Solange Patel on 01-10-2025 MCHC (RBC) [Mass/Vol] 34.1 g/dL 32-36 [facility] Mean platelet volume determi nationOrdered By: Solange Patel on 01-10-2025 Platelet mean volume (Bld) [Entitic vol] 9.6 fL 6.2-12.0 [facility] Monocyte percentageOrdered B y: Solange Patel on 01-10-2025 Monocytes/100 WBC (Bld) 11.0 % High 0-10 [facility] Neutrophil percentageOrdered By: Solange Patel on 01-10-2025 Neutrophils/100 WBC (Bld) 60.7 % 47-70 [facility] Nucleated red blood cell per centageOrdered By: Solange Patel on 01-10-2025 Nucleated RBC/100 WBC (Bld) [Ratio] 0 % 0-5 [facility] Platelet countOrdered By: Jamel Patel on 01-10-2025 Platelets (Bld) [#/Vol] 307 10*3/uL 150-450 [facility] Potassium measurement (mass/ volume)Ordered By: Solange Patel on 01-10-2025 Potassium (Unsp spec) [Mass/Vol] 4.0 mmol/L 3.3-5.1 [facility] RBC Auto (Bld) [#/Vol]Ordere d By: Solange Patel on 01-10-2025 RBC (Bld) [#/Vol] 5.08 10*6/uL 4.6-6.2 [facility] Serum creatinine measurement (mass/volume)Ordered By: Solange Patel on 01-10-2025 Creatinine [Mass/Vol] 0.78 mg/dL 0.70-1.20 [facility] Serum glucose measurement (m ass/volume)Ordered By: Solange Patel on 01-10-2025 Glucose [Mass/Vol] 93 mg/dL 70-99 [facility] Serum or plasma calcium shayne urement (mass/volume)Ordered By: Solange Patel on 01-10-2025 Calcium [Mass/Vol] 9.7 mg/dL 7.6-11.0 [facility] Serum or plasma urea nitroge n measurement (mass/volume)Ordered By: Solange Patel on 01-10-2025 Urea nitrogen [Mass/Vol] 10 mg/dL 4-19 [facility] Sodium levelOrdered By: Nigel Patel on 01-10-2025 Sodium [Moles/Vol] 140 mmol/L 133-145 [facility] Troponin T HS 2 HRon 025 Trop T High Sen 10 ng/L Normal <=22 [facility] Comment on above: Performed By: #### L 500.4050, L501.6710, L100.0500, L501.9520, L506.1000, L501.1400, L500.4100, L503.6620, L101.9900, L3100.7950 #### [facility] [address] [place], [place], [phone] Troponin T HS 4 HRon 025 Trop T High Sen Normal <=22 [facility] Comment on above: Result Comment: Elvia grace via OM: Ordered Performed By: #### L 500.4050, L501.6710, L100.0500, L501.9520, L506.1000, L501.1400, L500.4100, L503.6620, L101.9900, L3100.7950 #### [facility] [address] [place], [place], [id number] Troponin T.cardiac [Mass/vol ume] in Serum or Plasma by High sensitivity methodOrdered By: Solange Patel on 01-10-2025 Troponin T.cardiac High sensitivity method [Mass/Vol] 10 ng/L <22 [facility] Troponin T.cardiac High sensitivity method [Mass/Vol] 11 ng/L <22 [facility] White blood cell (WBC) count Ordered By: Solange Patel on 01-10-2025 WBC (Bld) [#/Vol] 8.2 10*3/uL 4.4-11.0 [facility] Cardiac Cath Interventionon 12-19-2024 Cardiac Cath Intervention [facility] Imaging Services [address] [place] [address] Cardiac Cath Intervention MR#: [id number] Acct: [id number] Name: EMIL TRONCOSO Rep #: [id number] : 1955 69 From: Oanh Mena MD PCP: Dr. Yaz Zepeda MD Status:DIS BLAS Patient Name: EMIL TRONCOSO Study Date: 11/01/2024 Performing: Oanh Mena MD Ht: 69 inches 175.26 cm : 1955 Wt: 178.2 lbs 80.74 kg Age: 69 Gender: male BSA: 1.97 PROCEDURE(S) PERFORMED IC12-(77616/C9600)EMERITA W/WO PTCA, SINGLE CORONARY ARTERY IC13-(99431/C9600)EMERITA W/WO PTCA, EACH ADD'L ART, SAME MAJOR CLINICAL PROFILE AND CO-MORBIDITIES Indications: Staged PCI Heart Failure: None CONCLUSIONS Successful EMERITA Prox RPDA using [place] 2.5x18 mm Successful EMERITA Prox RCA using [place] 3.5x30 mm RECOMMENDATIONS ASA Indefinitley P2Y12 inhibitors for atleast 6 months DESCRIPTION OF PROCEDURE The patient arrived to the procedure lab. The risks and benefits of the procedure as well as a full description of our services here and current unavailability of surgical backup were fully explained to the patient and/or their significant other prior to the catheterization. The Timeout was completed, verifying the correct patient and procedure. The patient's procedural site was prepped and draped in the usual fashion. Local anesthetic was given subcutaneously to right radial region with Lidocaine 2%. Using a modified Seldinger technique, arterial access was obtained via the right radial artery, a 6Fr sheath was inserted.. The images were reviewed and options discussed. A decision was then made to proceed with an Intervention, IVUS or other adjunct procedure. JR 4 Guide catheter was inserted and engaged into the RCA. Runthrough Guide wire was advanced to the RCA. 2.5x18 [place] Drug Eluting stent was inserted. Drug Eluting stent was advanced across the lesion in the posterior descending, proximal. Angiogram performed post stent deployment. 2.5x15 [place] Balloon catheter was inserted. Balloon catheter was inserted post stent. 3.5x30 [place] Drug Eluting stent was inserted. Drug Eluting stent was advanced across the lesion in the right coronary, proximal. Angiogram performed post stent deployment. 3.5x20 [place] Balloon catheter was inserted. Balloon catheter was inserted post stent. Angiogram performed post balloon dilatation. The arterial sheath was pulled and a TR Band was applied for hemostasis. 12cc of air INTERVENTION INFORMATION LESION SITE: RT PDA (Proximal) Lesion Complexity: Non-High/Non-C, lesion length: 16 mm Pre Stenosis: 70% % Pre intervention BARRY flow: 3 PROCEDURE: Drug Eluting Stent with post dilatation Post Stenosis: 0 % Post intervention BARRY flow: 3 Lesion Devices: Cordis 6 Fr JR4 100cm Guide Catheter Terumo .014 180cm Runthrough Extra Floppy straight Medtronic 2.50 x 18 VIDAL FRONTIER EMERITA Devan Sci NC EMERGE MR 2.50x15 BALLOON LESION SITE: RCA (Proximal) Lesion Complexity: High/C, lesion length: 28 mm Pre Stenosis: 80 % Pre intervention BARRY flow: 3 PROCEDURE: Drug Eluting Stent with post dilatation Post Stenosis: 0 % Post intervention BARRY flow: 3 Lesion Devices: Cordis 6 Fr JR4 100cm Guide Catheter Terumo .014 180cm Runthrough Extra Floppy straight Medtronic 3.5 x 30 VIDAL FRONTIER EMERITA Devan Sci NC EMERGE MR 3.50x20 BALLOON COMPLICATIONS No Complications PROCEDURE MEDICATIONS Fentanyl 50 mcg IV Versed 1 mg IV Fentanyl 50 mcg IV Oxygen: 2 L/min via nasal cannula Heparin given IA 11/01/2024 10:38:00 Heparin 5000 unit(s) IV 11/01/2024 10:47:46 Heparin 2000 unit(s) IV 11/01/2024 10:59:02 Heparin 3000 unit(s) IV 11/01/2024 11:20:46 Nitro 200 mcg IC 11/01/2024 10:55:02 Nitro 200 mcg IC 11/01/2024 10:55:02 Plavix 300 mg PO 11/01/2024 11:15:17 Verapamil 2.5mg, Ntg 200mcgs, 2000 units of Heparin given IA 11/01/2024 10:38:00 SUMMARY OF HEMODYNAMIC DATA Time AIR REST ECG 08:48:07 AO 119/73 (95) SA 10:48:27 Signed By Oanh Mena MD On 11/04/2024 16:21:29 Oanh Mena MD 12/19/24 0945 Date Oanh Mena MD Cosigner Signature: Date (if indicated) CC: Dr. Oanh Mena MD; Dr. Yaz Zepeda MD Date Dictated: 11/01/24 1031 Date Transcribed: 11/04/24 1621 Crew Team Member: AR Signed Normal [facility] Duplex ultrasound of carotid artery reportOrdered By: Drew Butcher on 12-14-2024 Study report [facility] [address] [place] [address] Carotid Duplex Ultrasound 12/13/24 0807 MR#: [id number] Acct: [id number] Name: EMIL TRONCOSO Yarely Rep #:[id number] : 1955 69 From: Drew Pritchett Attending Dr: SARA Vegas Sta tus: REG CLI Ordering Dr: Will Vences NP Date: 12/13/24 Location: CVS Sex: M C Admitted: Reason For Study Reason For Study: Dizziness Rt. Velocities/BP Lt. Velocities/BP Prox CCA 94.9/17.6 cm/sec. Prox CCA 88.8/21.2 cm/sec. Mid CCA 65.4/15.1 cm/sec. Mid CCA 70.4/15.1 cm/sec. Dist CCA 64.2/15.1 cm/sec. Dist CCA 59.7/12.4 cm/sec. Prox ICA 75.3/21.2 cm/sec. Prox ICA 44.7/16.0 cm/sec. Mid ICA 77.7/28.6 cm/sec. Mid ICA 45.6/9.0 cm/sec. Dist ICA 85.1/31.1 cm/sec. Dist ICA 69.2/28.6 cm/sec. Rt. ICA/CCA = 1.3. Lt. ICA/CCA = 1.0. Prox ECA 56.9/2.8 cm/sec. Prox ECA 48.2/6.4 cm/sec. Rt. Vert. 44.6/11.4 cm/sec. Lt. Vert. 45.6/11.6 cm/sec. Right Extracranial There is intimal thickening but no significant atherosclerotic plaque noted in the right common carotid artery. There is heterogeneous, irregular atherosclerotic plaque noted in the right internal carotid artery. There is intimal thickening but no significant atherosclerotic plaque noted in the right external carotid artery. Antegrade flow is noted in the right vertebral artery. Left Extracranial There is homogeneous, smooth atherosclerotic plaque noted in the left common carotid artery. There is heterogeneous, irregular atherosclerotic plaque noted in the left internal carotid artery. There is intimal thickening but no significant atherosclerotic plaque noted in the left external carotid artery. Antegrade flow is noted in the left vertebral artery. Procedure Carotid Duplex 51131. This is a Carotid Duplex examination using B-mode, color flow and specral Doppler. Exam performed in department. VL/Carotid Duplex Ultrasound Interpretation Summary Mild (<50%) stenosis right extracranial internal carotid. Mild (<50%) stenosis left extracranial internal carotid. Patent and antegrade vertebrals bilaterally. Ordering Physician: Will Vences Referring Physician: Will Vences Performed By: Jayna Love RVT 12/14/24805 Date _ Drew Butcher MD CC: MOLASSES AND CARAMEL OPERATOR-C Will Vences; Dr. Yaz Zepeda MD ~ Date Dictated: 12/13/24806 Date Transcribed: 12/14/24805 Crew Team Member: Signed [facility] Work Phone: Carotid Duplex Ultrasoundon 12-13-2024 Carotid Duplex Ultrasound [facility] [address] [place] [address] Carotid Duplex Ultrasound 12/13/24806 MR#: [id number] Acct: [id number] Name: EMIL TRONCOSO Rep #: [id number] : 1955 69 From: Drew Butcher MD Attending Dr: Will Vences, MOLASSES [employer] CARAMEL OPERATOR-C Status: REG CLI Ordering Dr: Will Vences NP [employer]OLASSES [employer] CARAMEL OPERATOR-C Date: 12/13/24 Location: CVS Sex: M C Admitted: Reason For Study Reason For Study: Dizziness Rt. Velocities/BP Lt. Velocities/BP Prox CCA 94.9/17.6 cm/sec. Prox CCA 88.8/21.2 cm/sec. Mid CCA 65.4/15.1 cm/sec. Mid CCA 70.4/15.1 cm/sec. Dist CCA 64.2/15.1 cm/sec. Dist CCA 59.7/12.4 cm/sec. Prox ICA 75.3/21.2 cm/sec. Prox ICA 44.7/16.0 cm/sec. Mid ICA 77.7/28.6 cm/sec. Mid ICA 45.6/9.0 cm/sec. Dist ICA 85.1/31.1 cm/sec. Dist ICA 69.2/28.6 cm/sec. Rt. ICA/CCA = 1.3. Lt. ICA/CCA = 1.0. Prox ECA 56.9/2.8 cm/sec. Prox ECA 48.2/6.4 cm/sec. Rt. Vert. 44.6/11.4 cm/sec. Lt. Vert. 45.6/11.6 cm/sec. Right Extracranial There is intimal thickening but no significant atherosclerotic plaque noted in the right common carotid artery. There is heterogeneous, irregular atherosclerotic plaque noted in the right internal carotid artery. There is intimal thickening but no significant atherosclerotic plaque noted in the right external carotid artery. Antegrade flow is noted in the right vertebral artery. Left Extracranial There is homogeneous, smooth atherosclerotic plaque noted in the left common carotid artery. There is heterogeneous, irregular atherosclerotic plaque noted in the left internal carotid artery. There is intimal thickening but no significant atherosclerotic plaque noted in the left external carotid artery. Antegrade flow is noted in the left vertebral artery. Procedure Carotid Duplex 19315. This is a Carotid Duplex examination using B-mode, color flow and specral Doppler. Exam performed in department. VL/Carotid Duplex Ultrasound Interpretation Summary Mild (<50%) stenosis right extracranial internal carotid. Mild (<50%) stenosis left extracranial internal carotid. Patent and antegrade vertebrals bilaterally. Ordering Physician: Will Vences Referring Physician: Will Vences Performed By: Jayna Love, JANIA 12/14/24805 Date Drew Butcher MD CC: M[employer]ASSES [employer] CARAMEL OPERATOR-C Will Vences; Dr. Yaz Zepeda MD Date Dictated: 12/13/24806 Date Transcribed: 12/14/24805 Crew Team Member: Signed Normal [facility] Absolute lymphocyte countOrd ered By: Will Vences on 12-01-2024 Lymphocytes Auto (Unsp spec) [#/Vol] 1.74 10*3/uL 0.83-4.51 [facility] Absolute neutrophil countOrd ered By: Will Vences on 12-01-2024 Neutrophils (Bld) [#/Vol] 4.3 10*3/uL 2.0-7.7 [facility] Anion gap in Serum or Plasma Ordered By: Will Vences on 12-01-2024 Anion gap [Moles/Vol] 11 mmol/L 5- [facility] Automated lymphocyte count a s percentage of total leukocytesOrdered By: Will Vences on 12-01-2024 Lymphocytes/100 WBC Auto (Unsp spec) 24.1 % [facility] BUN/creatinine ratioOrdered By: Will Vences on 12-01-2024 Urea nitrogen/Creatinine [Mass ratio] 17.8 mg/mg 02-27 [facility] Basic Metabolic Profile (BMP )on 12-01-2024 BUN/CRE 17.8 RATIO Normal 02-27 [facility] Comment on above: Performed By: #### L 500.4050, L501.6710, L100.0500, L501.9520, L506.1000, L501.1400, L500.4100, L503.6620, L101.9900, L3100.7950 #### [facility] [address] [place], [address] Calcium [Mass/Vol] 9.7 mg/dL Normal 7.6-11.0 [facility] Comment on above: Performed By: #### L 500.4050, L501.6710, L100.0500, L501.9520, L506.1000, L501.1400, L500.4100, L503.6620, L101.9900, L3100.7950 #### [facility] [address] [place], [address] Chloride [Moles/Vol] 104 mmol/L Normal 98-108 [facility] Comment on above: Performed By: #### L 500.4050, L501.6710, L100.0500, L501.9520, L506.1000, L501.1400, L500.4100, L503.6620, L101.9900, L3100.7950 #### [facility] [address] [place], [place], [id number] CO2 [Moles/Vol] 24.8 mmol/L Normal 21.0-32.0 [facility] Comment on above: Performed By: #### L 500.4050, L501.6710, L100.0500, L501.9520, L506.1000, L501.1400, L500.4100, L503.6620, L101.9900, L3100.7950 #### [facility] [address] [place], [place], [id number] Creatinine [Mass/Vol] 0.74 mg/dL Normal 0.70-1.20 [facility] Comment on above: Performed By: #### L 500.4050, L501.6710, L100.0500, L501.9520, L506.1000, L501.1400, L500.4100, L503.6620, L101.9900, L3100.7950 #### [facility] [address] [place], [place], [id number] GAP 11 Normal 5-15 [facility] Comment on above: Performed By: #### L 500.4050, L501.6710, L100.0500, L501.9520, L506.1000, L501.1400, L500.4100, L503.6620, L101.9900, L3100.7950 #### [facility] [address] [place], [place], [id number] GFR/1.73 sq M.predicted among non-blacks MDRD (S/P/Bld) [Vol rate/Area] 97 mL/min/{1.73_m2} Normal >60 [facility] Comment on above: Result Comment: mL/m in/1.73m2 CKD-EPI Creatinine Equation (2020) Performed By: #### L 500.4050, L501.6710, L100.0500, L501.9520, L506.1000, L501.1400, L500.4100, L503.6620, L101.9900, L3100.7950 #### [facility] [address] [place], [address] Glucose [Mass/Vol] 104 mg/dL High 70-99 [facility] Comment on above: Performed By: #### L 500.4050, L501.6710, L100.0500, L501.9520, L506.1000, L501.1400, L500.4100, L503.6620, L101.9900, L3100.7950 #### [facility] [address] [place], [address] Potassium [Moles/Vol] 4.4 mmol/L Normal 3.3-5.1 [facility] Comment on above: Performed By: #### L 500.4050, L501.6710, L100.0500, L501.9520, L506.1000, L501.1400, L500.4100, L503.6620, L101.9900, L3100.7950 #### [facility] [address] [place], [address] Sodium [Moles/Vol] 139 mmol/L Normal 133-145 [facility] Comment on above: Performed By: #### L 500.4050, L501.6710, L100.0500, L501.9520, L506.1000, L501.1400, L500.4100, L503.6620, L101.9900, L3100.7950 #### [facility] [address] [place], [address] Urea nitrogen [Mass/Vol] 13 mg/dL Normal 4-19 [facility] Comment on above: Performed By: #### L 500.4050, L501.6710, L100.0500, L501.9520, L506.1000, L501.1400, L500.4100, L503.6620, L101.9900, L3100.7950 #### [facility] [address] [place], [address] Basophil percentageOrdered B y: Will Vences on 12-01-2024 Basophils/100 WBC (Bld) 0.4 % 0-1 [facility] CBC W/Diff, Automatedon 11-09 Absolute Lymph 1.74 X10 3/uL Normal 0.83-4.51 [facility] Comment on above: Performed By: #### L 500.4050, L501.6710, L100.0500, L501.9520, L506.1000, L501.1400, L500.4100, L503.6620, L101.9900, L3100.7950 #### [facility] [address] [place], [address] Absolute Neut 4.3 X10 3/uL Normal 2.0-7.7 [facility] Comment on above: Performed By: #### L 500.4050, L501.6710, L100.0500, L501.9520, L506.1000, L501.1400, L500.4100, L503.6620, L101.9900, L3100.7950 #### [facility] [address] [place], [address] Basophils/100 WBC (Bld) 0.4 % Normal 0-1 [facility] Comment on above: Performed By: #### L 500.4050, L501.6710, L100.0500, L501.9520, L506.1000, L501.1400, L500.4100, L503.6620, L101.9900, L3100.7950 #### [facility] [address] [place], [address] Eosinophils/100 WBC (Bld) 1.9 % Normal 0-5 [facility] Comment on above: Performed By: #### L 500.4050, L501.6710, L100.0500, L501.9520, L506.1000, L501.1400, L500.4100, L503.6620, L101.9900, L3100.7950 #### [facility] [address] [facility] [place], [address] (779) Erythrocyte distribution width (RBC) [Ratio] 13.4 % Normal 11.6-14.6 [facility] Comment on above: Performed By: #### L 500.4050, L501.6710, L100.0500, L501.9520, L506.1000, L501.1400, L500.4100, L503.6620, L101.9900, L3100.7950 #### [facility] [address] [place], [address] (419) Hematocrit (Bld) [Volume fraction] 41.3 % Normal 40-54 [facility] Comment on above: Performed By: #### L 500.4050, L501.6710, L100.0500, L501.9520, L506.1000, L501.1400, L500.4100, L503.6620, L101.9900, L3100.7950 #### [facility] [address] [place], [address] (065) Hemoglobin (Bld) [Mass/Vol] 14.1 g/dL Normal 13.0-16.5 [facility] Comment on above: Performed By: #### L 500.4050, L501.6710, L100.0500, L501.9520, L506.1000, L501.1400, L500.4100, L503.6620, L101.9900, L3100.7950 #### [facility] [address] [facility] [place], [address] (756) IG% 0.800 Normal 0.0-0.9 [facility] Comment on above: Result Comment: IG% - Immature Granulocytes (promyelocytes, myelocytes and metamyelocytes) > 1% indicates that a LEFT SHIFT is Present. Performed By: #### L 500.4050, L501.6710, L100.0500, L501.9520, L506.1000, L501.1400, L500.4100, L503.6620, L101.9900, L3100.7950 #### [facility] [address] [place], [address] Lymphocytes/100 WBC (Bld) 24.1 % Normal 19-41 [facility] Comment on above: Performed By: #### L 500.4050, L501.6710, L100.0500, L501.9520, L506.1000, L501.1400, L500.4100, L503.6620, L101.9900, L3100.7950 #### [facility] [address] [facility] [place], [address] MCH (RBC) [Entitic mass] 30.3 pg Normal 27.0-32.0 [facility] Comment on above: Performed By: #### L 500.4050, L501.6710, L100.0500, L501.9520, L506.1000, L501.1400, L500.4100, L503.6620, L101.9900, L3100.7950 #### [facility] [address] [facility] [place], [address] MCHC (RBC) [Mass/Vol] 34.1 g/dL Normal 32-36 [facility] Comment on above: Performed By: #### L 500.4050, L501.6710, L100.0500, L501.9520, L506.1000, L501.1400, L500.4100, L503.6620, L101.9900, L3100.7950 #### [facility] [address] [facility] [place], [address] MCV (RBC) [Entitic vol] 88.8 fL Normal 80-94 [facility] Comment on above: Performed By: #### L 500.4050, L501.6710, L100.0500, L501.9520, L506.1000, L501.1400, L500.4100, L503.6620, L101.9900, L3100.7950 #### [facility] [address] [place], [address] Monocytes/100 WBC (Bld) 12.9 % High 0-10 [facility] Comment on above: Performed By: #### L 500.4050, L501.6710, L100.0500, L501.9520, L506.1000, L501.1400, L500.4100, L503.6620, L101.9900, L3100.7950 #### [facility] [address] [facility] [place], [address] Neutrophils/100 WBC (Bld) 59.9 % Normal 47-70 [facility] Comment on above: Performed By: #### L 500.4050, L501.6710, L100.0500, L501.9520, L506.1000, L501.1400, L500.4100, L503.6620, L101.9900, L3100.7950 #### [facility] [address] [facility] [place], [address] Nucleated RBC (Bld) [#/Vol] 0 10*3/uL Normal 0-5 [facility] Comment on above: Performed By: #### L 500.4050, L501.6710, L100.0500, L501.9520, L506.1000, L501.1400, L500.4100, L503.6620, L101.9900, L3100.7950 #### [facility] [address] [place], [address] Platelet mean volume (Bld) [Entitic vol] 9.4 fL Normal 6.2-12.0 [facility] Comment on above: Performed By: #### L 500.4050, L501.6710, L100.0500, L501.9520, L506.1000, L501.1400, L500.4100, L503.6620, L101.9900, L3100.7950 #### [facility] [address] [place], [address] Platelets (Bld) [#/Vol] 242 10*3/uL Normal 150-450 [facility] Comment on above: Performed By: #### L 500.4050, L501.6710, L100.0500, L501.9520, L506.1000, L501.1400, L500.4100, L503.6620, L101.9900, L3100.7950 #### [facility] [address] [place], [address] RBC (Bld) [#/Vol] 4.65 10*6/uL Normal 4.6-6.2 [facility] Comment on above: Performed By: #### L 500.4050, L501.6710, L100.0500, L501.9520, L506.1000, L501.1400, L500.4100, L503.6620, L101.9900, L3100.7950 #### [facility] [address] [place], [address] RDW SD 43.6 fl Normal 35.1-43.9 [facility] Comment on above: Performed By: #### L 500.4050, L501.6710, L100.0500, L501.9520, L506.1000, L501.1400, L500.4100, L503.6620, L101.9900, L3100.7950 #### [facility] [address] [place], [address] WBC (Bld) [#/Vol] 7.2 10*3/uL Normal 4.4-11.0 [facility] Comment on above: Performed By: #### L 500.4050, L501.6710, L100.0500, L501.9520, L506.1000, L501.1400, L500.4100, L503.6620, L101.9900, L3100.7950 #### [facility] [address] [place], [address] Carbon dioxide, total [Moles /volume] in Central venous bloodOrdered By: Will Vences on 12-01-2024 CO2 [Moles/Vol] 24.8 mmol/L 21.0-32.0 [facility] Cardiology Visit Reporton Cardiology Visit Report [facility] [address] [place] [address] OFFICE VISIT Date of Service: 12/01/24 MR#: [id number] Acct: [id number] Name: EMIL TRONCOSO Rep #: [id number] : 1955 Provider: SARA espinoza Age/Sex: 69/M Location: [facility] Status: Signed HPI HPI History of Present Illness Details: This is a 69-year-old gentleman with a history of CAD, a non-CAD related cardiomyopathy, hyperlipidemia, and hypertension. He follows with Dr. Stephens for skin cancer and has completed chemotherapy cream. He has had coronary angiography done. He was noted to have significant lesions in his mid left circumflex and proximal RCA. Successful percutaneous intervention was done to the left circumflex with a drug-eluting stent. Staged PCI to the RCA was recommended. He proceed with staged intervention on 11/04/2024 with EMERITA to prox RPDA and prox RCA. He states on episode of chest pain that was intermittent and dull. This improved with nitroglycerin. He states intermittent dizziness. He states hand and feed bilateral edema. He continues with shortness of breath with activity. Intake Vital Signs 11/15/24 10:27 12/01/24 13:34 12/01/24 13:35 Height 5 ft 9 in 5 ft 9 in 5 ft 9 in Weight: 181 lb BMI 26.7 BP 128/75 H Blood Pressure Location Lt brachial Position Sitting Respiration 16 Pulse 62 Pulse Source NIBP Intake Visit Reasons: Patient having swelling issues - OK'd per R Allergies bee venom protein (honey bee) Allergy (Verified 12/01/24 13:36) Anaphylaxis cefadroxil hydrate (From Duricef) Allergy (Verified 12/01/24 13:36) Rash niacin (From Niaspan Extended-Release) Allergy (Verified 12/01/24 13:36) Rash azatadine Adverse Reaction (Verified 12/01/24 13:36) Other pseudoephedrine Adverse Reaction (Verified 12/01/24 13:36) Other Medications ???Medication ???Instructions ???Recorded ???Confirmed ???Type pantoprazole 40 mg tablet,delayed 40 mg PO DAILY reflux 08/08/13 History release apixaban 5 mg tablet (Eliquis) 5 mg PO BID blood thinner 10/01/18 12/01/24 History multivitamin with minerals 1 tab PO DAILY supplement 05/06/19 12/01/24 History epinephrine 0.3 mg/0.3 mL 0.3 mg IM ONCE PRN ALLERGY 0 12/01/24 History injection, auto-injector meclizine 25 mg tablet 25 mg PO TID PRN PRN dizziness, 12/01/24 Rx vertigo #30 tabs tizanidine 4 mg capsule 4 mg PO Q8H PRN MUSCLE RELAXANT 12/01/24 History acetaminophen 325 mg tablet 650 mg (2 x 325 mg) PO Q4H PRN PRN 04/09/23 12/01/24 Rx Pain 1-10 Or Fever #0 tabs isosorbide mononitrate 30 mg 30 mg PO QAM awaiting mail in RX 0 10/13/24 12/01/24 Rx tablet,extended release 24 hr #90 tabs rosuvastatin 10 mg tablet 10 mg PO QDAY cholesterol #90 tabs 10/13/24 12/01/24 Rx verapamil 180 mg 24 hr 180 mg PO QHS blood pressure #90 0 11/15/24 12/01/24 Rx capsule,extended release caps nitroglycerin 0.4 mg sublingual 0.4 mg sublingual Q5-15M PRN chest 12/01/24 12/01/24 History tablet pain clopidogrel 75 mg tablet 75 mg PO DAILY anti platelet #90 0 12/05/24 Rx tabs Have you fallen in the past year?: No PFSH Medical History Nonischemic cardiomyopathy Wears dentures History of diverticulitis CAD (coronary artery disease) Right inguinal hernia Abnormal nuclear stress test Atherosclerotic heart disease of [place] coronary artery without angina pectoris Wears glasses Wears partial dentures Cancer Depression Anxiety Abrasion Arthritis Fatty liver Easy bruising Excessive bleeding Restless legs Vertigo Gastric reflux Sleep apnea CPAP (continuous positive airway pressure) dependence Shortness of breath on exertion Non-smoker History of edema Leg cramps History of echocardiogram Hypertension History of heart attack Chest pain History of stress test Cardiology follow-up encounter Abdominal pain Vertigo Squamous cell carcinoma Elevated troponin I level (2005) Nonobstructive atherosclerosis of coronary artery Recurrent deep vein thrombosis (DVT) Obstructive sleep apnea Gastroesophageal reflux disease Talamantes's esophagus Paroxysmal supraventricular tachycardia Osteoarthritis Insomnia Carotid artery occlusion without infarction Diverticulitis Type 2 diabetes mellitus without complication Asthma Myalgia Facial paresthesia (07/2018) Pericarditis Migraines History of GI bleed Hyperlipidemia Essential hypertension GI bleed Surgical History Stented coronary artery (11/01/24) History of robot-assisted repair of right inguinal hernia History of esophagogastroduodenoscopy (EGD) History of colonoscopy History of left heart catheterization (06/03 (more content not included)... Normal [facility] Cardiology Visit Report [facility] [facility] [place] [address] OFFICE VISIT Date of Service: MR#: [id number] Acct: [id number] Name: EMIL TRONCOSO Yarely Rep #: [id number] : 1955 Provider: Alpa Mays Age/Sex: 69/M Location: [facility] Status: Signed HPI HPI History of Present Illness Details: This is a 69-year-old gentleman with a history of CAD, a non-CAD related cardiomyopathy, hyperlipidemia, and hypertension. He follows with Dr. Stephens for skin cancer and has completed chemotherapy cream. He has had coronary angiography done. He was noted to have significant lesions in his mid left circumflex and proximal RCA. Successful percutaneous intervention was done to the left circumflex with a drug-eluting stent. Staged PCI to the RCA was recommended. He proceed with staged intervention on 11/04/2024 with EMERITA to prox RPDA and prox RCA. He states on episode of chest pain that was intermittent and dull. This improved with nitroglycerin. He denies palpitations. He states his lower extremity edema is improving. He states shortness of breath with activity and is improving. He deniess shortness of breath at rest, orthopnea, PND, or chronic cough. He denies Intake Vital Signs 11/15/24 10:27 12/01/24 13:18 Height 5 ft 9 in 5 ft 9 in Weight: 181 lb BMI 26.7 BP 128/75 H Blood Pressure Location Lt brachial Position Sitting Respiration 16 Pulse 62 Pulse Source NIBP Intake Visit Reasons: Amb Documentation [employer] Required: No Is patient in pain?: No Allergies bee venom protein (honey bee) Allergy (Verified 12/01/24 13:36) Anaphylaxis cefadroxil hydrate (From Duricef) Allergy (Verified 12/01/24 13:36) Rash niacin (From Niaspan Extended-Release) Allergy (Verified 12/01/24 13:36) Rash azatadine Adverse Reaction (Verified 12/01/24 13:36) Other pseudoephedrine Adverse Reaction (Verified 12/01/24 13:36) Other Medications ???Medication ???Instructions ???Recorded ???Confirmed ???Type pantoprazole 40 mg tablet,delayed 40 mg PO DAILY reflux 08/08/13 History release apixaban 5 mg tablet (Eliquis) 5 mg PO BID blood thinner 10/01/18 12/01/24 History multivitamin with minerals 1 tab PO DAILY supplement 05/06/19 12/01/24 History epinephrine 0.3 mg/0.3 mL 0.3 mg IM ONCE PRN ALLERGY 0 12/01/24 History injection, auto-injector meclizine 25 mg tablet 25 mg PO TID PRN PRN dizziness, 12/01/24 Rx vertigo #30 tabs tizanidine 4 mg capsule 4 mg PO Q8H PRN MUSCLE RELAXANT 12/01/24 History acetaminophen 325 mg tablet 650 mg (2 x 325 mg) PO Q4H PRN PRN 04/09/23 12/01/24 Rx Pain 1-10 Or Fever #0 tabs isosorbide mononitrate 30 mg 30 mg PO QAM awaiting mail in RX 0 10/13/24 12/01/24 Rx tablet,extended release 24 hr #90 tabs rosuvastatin 10 mg tablet 10 mg PO QDAY cholesterol #90 tabs 10/13/24 12/01/24 Rx verapamil 180 mg 24 hr 180 mg PO QHS blood pressure #90 0 11/15/24 12/01/24 Rx capsule,extended release caps nitroglycerin 0.4 mg sublingual 0.4 mg sublingual Q5-15M PRN chest 12/01/24 12/01/24 History tablet pain clopidogrel 75 mg tablet 75 mg PO DAILY anti platelet #90 0 12/05/24 Rx tabs Ejection fraction %: 65 Have you fallen in the past year?: [facility] Nonischemic cardiomyopathy Wears dentures History of diverticulitis CAD (coronary artery disease) Right inguinal hernia Abnormal nuclear stress test Atherosclerotic heart disease of [place] coronary artery without angina pectoris Wears glasses Wears partial dentures Cancer Depression Anxiety Abrasion Arthritis Fatty liver Easy bruising Excessive bleeding Restless legs Vertigo Gastric reflux Sleep apnea CPAP (continuous positive airway pressure) dependence Shortness of breath on exertion Non-smoker History of edema Leg cramps History of echocardiogram Hypertension History of heart attack Chest pain History of stress test Cardiology follow-up encounter Abdominal pain Vertigo Squamous cell carcinoma Elevated troponin I level (2005) Nonobstructive atherosclerosis of coronary artery Recurrent deep vein thrombosis (DVT) Obstructive sleep apnea Gastroesophageal reflux disease Talamantes's esophagus Paroxysmal supraventricular tachycardia Osteoarthritis Insomnia Carotid artery occlusion without infarction Diverticulitis Type 2 diabetes mellitus without complication Asthma Myalgia Facial paresthesia (07/2018) Pericarditis Migraines History of GI bleed Hyperlipidemia Essential hypertension GI bleed Surgical History Stented coronary artery (11/01/24) History of robot-assisted repair of right inguinal hernia History of eso (more content not included)... Normal [facility] Chloride assayOrdered By: Ana María Vences on 12-01-2024 Chloride [Moles/Vol] 104 mmol/L 98-108 [facility] Eosinophil percentageOrdered By: Will Vences on 12-01-2024 Eosinophils/100 WBC (Bld) 1.9 % 0-5 [facility] Erythrocyte distribution wid th ratioOrdered By: Will Vences on 12-01-2024 Erythrocyte distribution width (RBC) [Ratio] 13.4 % 11.6-14.6 [facility] Erythrocyte distribution wid th standard deviationOrdered By: Will Vences on 12-01-2024 Erythrocyte distribution width (RBC) [Ratio] 43.6 fl 35.1-43.9 [facility] Glomerular filtration rate ( GFR) estimation/1.73 sq m using serum, plasma, or whole bOrdered By: Will Vences on 12-01-2024 GFR/1.73 sq M.predicted among non-blacks MDRD (S/P/Bld) [Vol rate/Area] 97 mL/min/{1.73_m2} >60 [facility] Comment on above: mL/min/1.73m2 CKD-EP I Creatinine Equation (2020) Hematocrit Auto (Bld) [Volum e fraction]Ordered By: Will Vences on 12-01-2024 Hematocrit (Bld) [Volume fraction] 41.3 % 40-54 [facility] Hemoglobin measurementOrdere d By: Will Vences on 12-01-2024 Hemoglobin (Bld) [Mass/Vol] 14.1 g/dL 13.0-16.5 [facility] Immature granulocytes/100 WB C Auto (Bld)Ordered By: Will Vences on 12-01-2024 Immature granulocytes/100 WBC (Bld) 0.800 % 0.0-0.9 [facility] Comment on above: IG% - Immature Granu locytes (promyelocytes, myelocytes and metamyelocytes) > 1% indicates that a LEFT SHIFT is Present. L503.7505on 12-01-2024 Natriuretic peptide B (Bld) [Mass/Vol] 96 pg/mL Normal <=900 [facility] Comment on above: Result Comment: Hear t Failure Unlikely: < 300 pg/mL Heart Failure Likely < 50 Years: > 450 pg/mL 50-75 Years: > 900 pg/mL >75 Years: > 1800 pg/mL Performed By: #### L 500.4050, L501.6710, L100.0500, L501.9520, L506.1000, L501.1400, L500.4100, L503.6620, L101.9900, L3100.7950 #### [facility] [address], [address] MCV (mean corpuscular volume ) determinationOrdered By: Will Vences on 12-01-2024 MCV (RBC) [Entitic vol] 88.8 fL 80-94 [facility] Mean corpuscular hemoglobin (MCH) determinationOrdered By: Will Vences on 12-01-2024 MCH (RBC) [Entitic mass] 30.3 pg 27.0-32.0 [facility] Mean corpuscular hemoglobin concentration (MCHC) determinationOrdered By: Will Vences on 12-01-2024 MCHC (RBC) [Mass/Vol] 34.1 g/dL 32-36 [facility] Mean platelet volume determi nationOrdered By: Will Vences on 12-01-2024 Platelet mean volume (Bld) [Entitic vol] 9.4 fL 6.2-12.0 [facility] Monocyte percentageOrdered B y: Will Vences on 12-01-2024 Monocytes/100 WBC (Bld) 12.9 % High 0-10 [facility] Natriuretic peptide.B prohor dick N-Terminal [Mass/volume] in Serum or PlasmaOrdered By: Will Vences on 12-01-2024 Natriuretic peptide.B prohormone N-Terminal [Mass/Vol] 96 pg/mL <900 [facility] Comment on above: Heart Failure Unlike ly: < 300 pg/mLHeart Failure Likely< 50 Years: > 450 pg/mL50-75 Years: > 900 pg/mL>75 Years: > 1800 pg/mL Neutrophil percentageOrdered By: Will Vences on 12-01-2024 Neutrophils/100 WBC (Bld) 59.9 % 47-70 [facility] Nucleated red blood cell per centageOrdered By: Will Vences on 12-01-2024 Nucleated RBC/100 WBC (Bld) [Ratio] 0 % 0-5 [facility] Platelet countOrdered By: Ana María Vences on 12-01-2024 Platelets (Bld) [#/Vol] 242 10*3/uL 150-450 [facility] Potassium measurement (mass/ volume)Ordered By: Will Vences on 12-01-2024 Potassium (Unsp spec) [Mass/Vol] 4.4 mmol/L 3.3-5.1 [facility] RBC Auto (Bld) [#/Vol]Ordere d By: Will Vences on 12-01-2024 RBC (Bld) [#/Vol] 4.65 10*6/uL 4.6-6.2 [facility] Serum creatinine measurement (mass/volume)Ordered By: Will Vences on 12-01-2024 Creatinine [Mass/Vol] 0.74 mg/dL 0.70-1.20 [facility] Serum glucose measurement (m ass/volume)Ordered By: Will Vences on 12-01-2024 Glucose [Mass/Vol] 104 mg/dL High 70-99 [facility] Serum or plasma calcium shayne urement (mass/volume)Ordered By: Will Vences on 12-01-2024 Calcium [Mass/Vol] 9.7 mg/dL 7.6-11.0 [facility] Serum or plasma urea nitroge n measurement (mass/volume)Ordered By: Will Vences on 12-01-2024 Urea nitrogen [Mass/Vol] 13 mg/dL 4-19 [facility] Sodium levelOrdered By: Will Vences on 12-01-2024 Sodium [Moles/Vol] 139 mmol/L 133-145 [facility] White blood cell (WBC) count Ordered By: Will Vences on 12-01-2024 WBC (Bld) [#/Vol] 7.2 10*3/uL 4.4-11.0 [facility] Cardiology Visit Reporton Cardiology Visit Report [facility] [address] [address] [place] [address] OFFICE VISIT Date of Service: 11/15/24 MR#: [id number] Acct: [id number] Name: EMIL TRONCOSO Rep #: [id number] : 1955 Provider: SARA espinoza Age/Sex: 69/M Location: [facility] Status: Signed HPI HPI History of Present Illness Details: This is a 69-year-old gentleman with a history of CAD, a non-CAD related cardiomyopathy, hyperlipidemia, and hypertension. He follows with Dr. Stephens for skin cancer and has completed chemotherapy cream. He has had coronary angiography done. He was noted to have significant lesions in his mid left circumflex and proximal RCA. Successful percutaneous intervention was done to the left circumflex with a drug-eluting stent. Staged PCI to the RCA was recommended. He proceed with staged intervention on 11/04/2024 with EMERITA to prox RPDA and prox RCA. He states on episode of chest pain that was intermittent and dull. This improved with nitroglycerin. He denies palpitations. He states his lower extremity edema is improving. He states shortness of breath with activity and is improving. He deniess shortness of breath at rest, orthopnea, PND, or chronic cough. He denies Intake Vital Signs 11/01/24 17:47 11/08/24 12:12 11/15/24 10:27 Height 5 ft 9 in 5 ft 9 in 5 ft 9 in Weight: 178 lb BMI 26.2 BP 97/64 Blood Pressure Location Lt brachial Position Sitting Respiration 16 Pulse 70 Pulse Source NIBP Intake Visit Reasons: S/P ([facility] 11/01) [employer] Required: No Is patient in pain?: No Allergies bee venom protein (honey bee) Allergy (Verified 11/15/24 10:31) Anaphylaxis cefadroxil hydrate (From Duricef) Allergy (Verified 11/15/24 10:31) Rash niacin (From Niaspan Extended-Release) Allergy (Verified 11/15/24 10:31) Rash azatadine Adverse Reaction (Verified 11/15/24 10:31) Other pseudoephedrine Adverse Reaction (Verified 11/15/24 10:31) Other Medications ???Medication ???Instructions ???Recorded ???Confirmed ???Type pantoprazole 40 mg tablet,delayed 40 mg PO DAILY reflux 08/08/13 History release apixaban 5 mg tablet (Eliquis) 5 mg PO BID blood thinner 10/01/18 11/15/24 History nitroglycerin 0.4 mg sublingual 0.4 mg sublingual Q5-15M chest shayna n 10/26/18 11/15/24 History tablet multivitamin with minerals 1 tab PO DAILY supplement 05/06/19 11/15/24 History epinephrine 0.3 mg/0.3 mL 0.3 mg IM ONCE PRN ALLERGY 2 0 11/15/24 History injection, auto-injector meclizine 25 mg tablet 25 mg PO TID PRN PRN dizziness, 11/15/24 Rx vertigo #30 tabs tizanidine 4 mg capsule 4 mg PO Q8H PRN MUSCLE RELAXANT 11/15/24 History acetaminophen 325 mg tablet 650 mg (2 x 325 mg) PO Q4H PRN PRN 04/09/23 11/15/24 Rx Pain 1-10 Or Fever #0 tabs clopidogrel 75 mg tablet 75 mg PO DAILY anti platelet #30 0 09/29/24 11/15/24 Rx tabs isosorbide mononitrate 30 mg 30 mg PO QAM awaiting mail in RX 0 10/13/24 11/15/24 Rx tablet,extended release 24 hr #90 tabs rosuvastatin 10 mg tablet 10 mg PO QDAY cholesterol #90 tabs 10/13/24 11/15/24 Rx verapamil 180 mg 24 hr 180 mg PO QHS blood pressure #90 0 11/15/24 11/15/24 Rx capsule,extended release caps Ejection fraction %: 65 Have you fallen in the past year?: No PFSH Medical History Nonischemic cardiomyopathy Wears dentures History of diverticulitis CAD (coronary artery disease) Right inguinal hernia Abnormal nuclear stress test Atherosclerotic heart disease of [place] coronary artery without angina pectoris Wears glasses Wears partial dentures Cancer Depression Anxiety Abrasion Arthritis Fatty liver Easy bruising Excessive bleeding Restless legs Vertigo Gastric reflux Sleep apnea CPAP (continuous positive airway pressure) dependence Shortness of breath on exertion Non-smoker History of edema Leg cramps History of echocardiogram Hypertension History of heart attack Chest pain History of stress test Cardiology follow-up encounter Abdominal pain Vertigo Squamous cell carcinoma Elevated troponin I level (2005) Nonobstructive atherosclerosis of coronary artery Recurrent deep vein thrombosis (DVT) Obstructive sleep apnea Gastroesophageal reflux disease Talamantes's esophagus Paroxysmal supraventricular tachycardia Osteoarthritis Insomnia Carotid artery occlusion without infarction Diverticulitis Type 2 diabetes mellitus without complication Asthma Myalgia Facial paresthesia (07/2018) Pericarditis Migraines History of GI bleed Hyperlipidemia Essential hypertension GI bleed Surgical History Stented coronary artery (11/01/24) History of robot-assisted repa (more content not included)... Normal [facility] CR - History AND Physicalon 11-08-2024 CR - History & Physical [facility] [address] [place] [address] CR - History Physical MR#: [id number] Acct: [id number] Name: EMIL TRONCOSO Rep #: [id number] : 1955 69 From: Dany Walters BS, RVT PCP: Dr. Yaz Zepeda MD DOS: 11/08/24 CR - History Physical General Arrival date:: 11/08/24 Arrival time:: 12:00 Date of Referral:: 11/02/24 Date of CR Evaluation:: 11/08/24 Referring Physician: Dr. Mena Primary Diagnosis: PCI w/stenting History of Present Cardiac Event Onset Date PTCA or coronary stenting:: Yes (11/01/24 onset) Medications Ambulatory Orders ???Medication ???Instructions ???Recorded pantoprazole 40 mg tablet,delayed 40 mg PO DAILY reflux 08/08/13 release albuterol sulfate 90 mcg/actuation 2 puff inhalation Q4H PRN PRN So b 04/01/16 aerosol inhaler /Or Wheezing apixaban 5 mg tablet (Eliquis) 5 mg PO BID blood thinner 10/01/18 nitroglycerin 0.4 mg sublingual 0.4 mg sublingual Q5-15M chest shayna n 10/26/18 tablet verapamil 180 mg 24 hr 180 mg PO QHS blood pressure 10/26 capsule,extended release multivitamin with minerals 1 tab PO DAILY supplement 05/06/19 epinephrine 0.3 mg/0.3 mL 0.3 mg IM ONCE PRN ALLERGY 0 injection, auto-injector meclizine 25 mg tablet 25 mg PO TID PRN PRN dizziness, vertigo #30 tabs tizanidine 4 mg capsule 4 mg PO Q8H PRN MUSCLE RELAXANT acetaminophen 325 mg tablet 650 mg (2 x 325 mg) PO Q4H PRN PRN 04/09/23 Pain 1-10 Or Fever #0 tabs clopidogrel 75 mg tablet 75 mg PO DAILY anti platelet #30 0 09/29/24 tabs isosorbide mononitrate 30 mg 30 mg PO QAM awaiting mail in RX 0 10/13/24 tablet,extended release 24 hr #90 tabs rosuvastatin 10 mg tablet 10 mg PO QDAY cholesterol #90 tabs 10/13/24 Allergies Allergies bee venom protein (honey bee) Allergy (Verified 10/13/24 10:00) Anaphylaxis cefadroxil hydrate (From Duricef) Allergy (Verified 10/13/24 10:00) Rash niacin (From Niaspan Extended-Release) Allergy (Verified 10/13/24 10:00) Rash azatadine Adverse Reaction (Verified 10/13/24 10:00) Other AFFECTS BP(FROM TRINALIN) pseudoephedrine Adverse Reaction (Verified 10/13/24 10:00) Other AFFECTS BP (FROM TRINALIN) Sleep Disorder Evaluation Hx of Sleep Apnea: Yes Do you snore loudly (louder than talking or can be heard through closed doors)?: No Do you often feel tired/ fatigued/ sleepy during daytime?: No Has anyone observed you stop breathing during sleep?: No History of Hypertension (for STOP score): Yes STOP Results: Negative Advanced Directives Advanced Directives 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 EF has since normalized. Wears dentures Z97.2 History of diverticulitis Z87.19 CAD (coronary artery disease) I25.10 Right inguinal hernia K40.90 Abnormal nuclear stress test R94.39 Atherosclerotic heart disease of [place] coronary artery without angina pectoris I25.10 Nonobstructive per cardiac cath 01/09/2020 Wears glasses Z97.3 Wears partial dentures Z97.2 Cancer C80.1 SKIN Depression F32.A Anxiety F41.9 Abrasion T14.8XXA KNEE Arthritis M19.90 HANDS Fatty liver K76.0 Easy bruising R23.3 Excessive bleeding R58 Restless legs G25.81 Vertigo R42 Gastric reflux K21.9 PER PT, CONTROLLED ON MEDS Sleep apnea G47.30 CPAP (continuous positive airway pressure) dependence Z99.89 Shortness of breath on exertion R06.02 DYSPNEA WITH 2 FLIGHTS OF STAIRS Non-smoker Z78.9 History of edema Z87.898 Leg cramps R25.2 History of echocardiogram Z92.89 07/17/2020 [facility]; TRANSTHORACIC ECHO 04/2022 AT [facility] Hypertension I10 History of heart attack I25.2 BEFORE 2001 Chest pain R07.9 STATES CP IS R/T ANXIETY, STATES PCP AWARE, UNABLE TO GET IN TO SEE CARDIOLOGY History of stress test Z92.89 05/08/2022 [facility] Cardiology follow-up encounter Z09 10/23/2022 MOST RECENT VISIT WITH [facility] Abdominal pain R10.9 Vertigo R42 Squamous cell carcinoma Elevated troponin I level (2005) R79.89 Nonobstructive atherosclerosis of coronary artery I25.10 Recurrent deep vein thrombosis (DVT) I82.409 Obstructive sleep apnea G47.33 Gastroesophageal reflux disease K21.9 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 Paroxysmal supraventricular tachycardia I47.1 Osteoarthritis M19.90 Insomnia G47.00 Carotid artery occlusion without infarction I65.29 right Diverticulitis K57.92 Type 2 diabetes mellitus without complic (more content not included)... Normal [facility] ACT Activated Clotting Timeo n 11-02-2024 ACTk CLOT TIME 199 sec High 74-137 [facility] Comment on above: Performed By: #### L 500.4050, L501.6710, L100.0500, L501.9520, L506.1000, L501.1400, L500.4100, L503.6620, L101.9900, L3100.7950 #### [facility] [address] [place], [place], [id number] Anion gap in Serum or Plasma Ordered By: Oanh Mena on 11-02-2024 Anion gap [Moles/Vol] 11 mmol/L - [facility] BUN/creatinine ratioOrdered By: Oanh Mena on 11-02-2024 Urea nitrogen/Creatinine [Mass ratio] 13.9 mg/mg 10-20 [facility] Bilirubin, totalOrdered By: Oanh Mena on 11-02-2024 Bilirubin [Mass/Vol] 0.57 mg/dL 0.00-1.30 [facility] CBC-Complete Blood Cnt No Di ffon 11-02-2024 Erythrocyte distribution width (RBC) [Ratio] 13.2 % Normal 11.6-14.6 [facility] Comment on above: Performed By: #### L 500.4050, L501.6710, L100.0500, L501.9520, L506.1000, L501.1400, L500.4100, L503.6620, L101.9900, L3100.7950 #### [facility] [address] [facility] [place], [address] Hematocrit (Bld) [Volume fraction] 39.0 % Low 40-54 [facility] Comment on above: Performed By: #### L 500.4050, L501.6710, L100.0500, L501.9520, L506.1000, L501.1400, L500.4100, L503.6620, L101.9900, L3100.7950 #### [facility] [address] [facility] [place], [address] Hemoglobin (Bld) [Mass/Vol] 13.3 g/dL Normal 13.0-16.5 [facility] Comment on above: Performed By: #### L 500.4050, L501.6710, L100.0500, L501.9520, L506.1000, L501.1400, L500.4100, L503.6620, L101.9900, L3100.7950 #### [facility] [address] [place], [address] MCH (RBC) [Entitic mass] 30.5 pg Normal 27.0-32.0 [facility] Comment on above: Performed By: #### L 500.4050, L501.6710, L100.0500, L501.9520, L506.1000, L501.1400, L500.4100, L503.6620, L101.9900, L3100.7950 #### [facility] [address] [place], [address] MCHC (RBC) [Mass/Vol] 34.1 g/dL Normal 32-36 [facility] Comment on above: Performed By: #### L 500.4050, L501.6710, L100.0500, L501.9520, L506.1000, L501.1400, L500.4100, L503.6620, L101.9900, L3100.7950 #### [facility] [address] [place], [address] MCV (RBC) [Entitic vol] 89.4 fL Normal 80-94 [facility] Comment on above: Performed By: #### L 500.4050, L501.6710, L100.0500, L501.9520, L506.1000, L501.1400, L500.4100, L503.6620, L101.9900, L3100.7950 #### [facility] [address] [place], [address] Platelet mean volume (Bld) [Entitic vol] 9.5 fL Normal 6.2-12.0 [facility] Comment on above: Performed By: #### L 500.4050, L501.6710, L100.0500, L501.9520, L506.1000, L501.1400, L500.4100, L503.6620, L101.9900, L3100.7950 #### [facility] [address] [facility] [place], [address] Platelets (Bld) [#/Vol] 202 10*3/uL Normal 150-450 [facility] Comment on above: Performed By: #### L 500.4050, L501.6710, L100.0500, L501.9520, L506.1000, L501.1400, L500.4100, L503.6620, L101.9900, L3100.7950 #### [facility] [address] [place], [address] RBC (Bld) [#/Vol] 4.36 10*6/uL Low 4.6-6.2 [facility] Comment on above: Performed By: #### L 500.4050, L501.6710, L100.0500, L501.9520, L506.1000, L501.1400, L500.4100, L503.6620, L101.9900, L3100.7950 #### [facility] [address] [facility] [place], [address] RDW SD 43.6 fl Normal 35.1-43.9 [facility] Comment on above: Performed By: #### L 500.4050, L501.6710, L100.0500, L501.9520, L506.1000, L501.1400, L500.4100, L503.6620, L101.9900, L3100.7950 #### [facility] [address] [facility] [place], [address] WBC (Bld) [#/Vol] 7.3 10*3/uL Normal 4.4-11.0 [facility] Comment on above: Performed By: #### L 500.4050, L501.6710, L100.0500, L501.9520, L506.1000, L501.1400, L500.4100, L503.6620, L101.9900, L3100.7950 #### [facility] [address] [facility] [place], [address] Carbon dioxide, total [Moles /volume] in Central venous bloodOrdered By: Oanh Mena on 11-02-2024 CO2 [Moles/Vol] 23.3 mmol/L 21.0-32.0 [facility] Chloride assayOrdered By: Stephan Mena on 11-02-2024 Chloride [Moles/Vol] 105 mmol/L 98-108 [facility] Comprehensive Metabolic Prof ilon 11-02-2024 Albumin [Mass/Vol] 3.7 g/dL Normal 3.4-4.8 [facility] Comment on above: Performed By: #### L 500.4050, L501.6710, L100.0500, L501.9520, L506.1000, L501.1400, L500.4100, L503.6620, L101.9900, L3100.7950 #### [facility] [address] [place], [address] Albumin/Globulin [Mass ratio] 1.5 {ratio} Normal 0.9-2.4 [facility] Comment on above: Performed By: #### L 500.4050, L501.6710, L100.0500, L501.9520, L506.1000, L501.1400, L500.4100, L503.6620, L101.9900, L3100.7950 #### [facility] [address] [place], [address] ALK PHOS 58 U/L Normal 40-129 [facility] Comment on above: Performed By: #### L 500.4050, L501.6710, L100.0500, L501.9520, L506.1000, L501.1400, L500.4100, L503.6620, L101.9900, L3100.7950 #### [facility] [address] [place], [address] ALT [Catalytic activity/Vol] 29 U/L Normal <=46 [facility] Comment on above: Performed By: #### L 500.4050, L501.6710, L100.0500, L501.9520, L506.1000, L501.1400, L500.4100, L503.6620, L101.9900, L3100.7950 #### [facility] [address] [place], [address] AST [Catalytic activity/Vol] 32 U/L Normal <=37 [facility] Comment on above: Performed By: #### L 500.4050, L501.6710, L100.0500, L501.9520, L506.1000, L501.1400, L500.4100, L503.6620, L101.9900, L3100.7950 #### [facility] [address] [place], [address] Bilirubin [Mass/Vol] 0.57 mg/dL Normal 0.00-1.30 [facility] Comment on above: Performed By: #### L 500.4050, L501.6710, L100.0500, L501.9520, L506.1000, L501.1400, L500.4100, L503.6620, L101.9900, L3100.7950 #### [facility] [address] [place], [address] BUN/CRE 13.9 RATIO Normal 10-20 [facility] Comment on above: Performed By: #### L 500.4050, L501.6710, L100.0500, L501.9520, L506.1000, L501.1400, L500.4100, L503.6620, L101.9900, L3100.7950 #### [facility] [address] [place], [address] Calcium [Mass/Vol] 9.3 mg/dL Normal 7.6-11.0 [facility] Comment on above: Performed By: #### L 500.4050, L501.6710, L100.0500, L501.9520, L506.1000, L501.1400, L500.4100, L503.6620, L101.9900, L3100.7950 #### [facility] [address] [place], [address] Chloride [Moles/Vol] 105 mmol/L Normal 98-108 [facility] Comment on above: Performed By: #### L 500.4050, L501.6710, L100.0500, L501.9520, L506.1000, L501.1400, L500.4100, L503.6620, L101.9900, L3100.7950 #### [facility] [address] [place], [address] CO2 [Moles/Vol] 23.3 mmol/L Normal 21.0-32.0 [facility] Comment on above: Performed By: #### L 500.4050, L501.6710, L100.0500, L501.9520, L506.1000, L501.1400, L500.4100, L503.6620, L101.9900, L3100.7950 #### [facility] [address] [place], [address] Creatinine [Mass/Vol] 0.78 mg/dL Normal 0.70-1.20 [facility] Comment on above: Performed By: #### L 500.4050, L501.6710, L100.0500, L501.9520, L506.1000, L501.1400, L500.4100, L503.6620, L101.9900, L3100.7950 #### [facility] [address] [place], [address] ECRCL 84.69 ml/min Normal 50-250 [facility] Comment on above: Performed By: #### L 500.4050, L501.6710, L100.0500, L501.9520, L506.1000, L501.1400, L500.4100, L503.6620, L101.9900, L3100.7950 #### [facility] [address] [place], [address] GAP 11 Normal 5-15 [facility] Comment on above: Performed By: #### L 500.4050, L501.6710, L100.0500, L501.9520, L506.1000, L501.1400, L500.4100, L503.6620, L101.9900, L3100.7950 #### [facility] [address] [place], [place], [id number] GFR/1.73 sq M.predicted among non-blacks MDRD (S/P/Bld) [Vol rate/Area] 95 mL/min/{1.73_m2} Normal >60 [facility] Comment on above: Result Comment: mL/m in/1.73m2 CKD-EPI Creatinine Equation (2020) Performed By: #### L 500.4050, L501.6710, L100.0500, L501.9520, L506.1000, L501.1400, L500.4100, L503.6620, L101.9900, L3100.7950 #### [facility] [address] [place], [place], [phone] Globulin (S) [Mass/Vol] 2.5 g/dL Normal 2.2-4.2 [facility] Comment on above: Performed By: #### L 500.4050, L501.6710, L100.0500, L501.9520, L506.1000, L501.1400, L500.4100, L503.6620, L101.9900, L3100.7950 #### [facility] [address] [place], [place], [phone] Glucose [Mass/Vol] 162 mg/dL High 70-99 [facility] Comment on above: Performed By: #### L 500.4050, L501.6710, L100.0500, L501.9520, L506.1000, L501.1400, L500.4100, L503.6620, L101.9900, L3100.7950 #### [facility] [address] [place], [address] Potassium [Moles/Vol] 4.3 mmol/L Normal 3.3-5.1 [facility] Comment on above: Performed By: #### L 500.4050, L501.6710, L100.0500, L501.9520, L506.1000, L501.1400, L500.4100, L503.6620, L101.9900, L3100.7950 #### [facility] [address] [place], [address] Sodium [Moles/Vol] 139 mmol/L Normal 133-145 [facility] Comment on above: Performed By: #### L 500.4050, L501.6710, L100.0500, L501.9520, L506.1000, L501.1400, L500.4100, L503.6620, L101.9900, L3100.7950 #### [facility] [address] [facility] [place], [address] T PROT 6.2 g/dL Normal 5.9-8.4 [facility] Comment on above: Performed By: #### L 500.4050, L501.6710, L100.0500, L501.9520, L506.1000, L501.1400, L500.4100, L503.6620, L101.9900, L3100.7950 #### [facility] [address] [place], [address] Urea nitrogen [Mass/Vol] 11 mg/dL Normal 4-19 [facility] Comment on above: Performed By: #### L 500.4050, L501.6710, L100.0500, L501.9520, L506.1000, L501.1400, L500.4100, L503.6620, L101.9900, L3100.7950 #### [facility] [address] [place], [address] Erythrocyte distribution wid th ratioOrdered By: Oanh Mena on 11-02-2024 Erythrocyte distribution width (RBC) [Ratio] 13.2 % 11.6-14.6 [facility] Erythrocyte distribution wid th standard deviationOrdered By: Oanh Mena on 11-02-2024 Erythrocyte distribution width (RBC) [Ratio] 43.6 fl 35.1-43.9 [facility] Glomerular filtration rate ( GFR) estimation/1.73 sq m using serum, plasma, or whole bOrdered By: Oanh Mena on 11-02-2024 GFR/1.73 sq M.predicted among non-blacks MDRD (S/P/Bld) [Vol rate/Area] 95 mL/min/{1.73_m2} >60 [facility] Comment on above: mL/min/1.73m2 CKD-EP I Creatinine Equation (2020) Hematocrit Auto (Bld) [Volum e fraction]Ordered By: Oanh Mena on 11-02-2024 Hematocrit (Bld) [Volume fraction] 39.0 % Low 40-54 [facility] Hemoglobin measurementOrdere d By: Oanh Mena on 11-02-2024 Hemoglobin (Bld) [Mass/Vol] 13.3 g/dL 13.0-16.5 [facility] - Chemistry and C hemistry - challengeOrdered By: Oanh Mena on 11-02-2024 AST [Catalytic activity/Vol] 32 U/L <38 [facility] MCV (mean corpuscular volume ) determinationOrdered By: Oanh Mena on 11-02-2024 MCV (RBC) [Entitic vol] 89.4 fL 80-94 [facility] Mean corpuscular hemoglobin (MCH) determinationOrdered By: Oanhyarely Mena 11-02-2024 MCH (RBC) [Entitic mass] 30.5 pg 27.0-32.0 [facility] Mean corpuscular hemoglobin concentration (MCHC) determinationOrdered By: Oanh Mena on 11-02-2024 MCHC (RBC) [Mass/Vol] 34.1 g/dL 32-36 [facility] Mean platelet volume determi nationOrdered By: Oanh Mena on 11-02-2024 Platelet mean volume (Bld) [Entitic vol] 9.5 fL 6.2-12.0 [facility] Platelet countOrdered By: Stephan Mena on 11-02-2024 Platelets (Bld) [#/Vol] 202 10*3/uL 150-450 [facility] Potassium measurement (mass/ volume)Ordered By: Oanh Mena on 11-02-2024 Potassium (Unsp spec) [Mass/Vol] 4.3 mmol/L 3.3-5.1 [facility] RBC Auto (Bld) [#/Vol]Ordere d By: Oanh Mena on 11-02-2024 RBC (Bld) [#/Vol] 4.36 10*6/uL Low 4.6-6.2 [facility] Serum creatinine measurement (mass/volume)Ordered By: Oanh Mena on 11-02-2024 Creatinine [Mass/Vol] 0.78 mg/dL 0.70-1.20 [facility] Serum globulin measurementOr dered By: Oanh Mena on 11-02-2024 Globulin (S) [Mass/Vol] 2.5 g/dL 2.2-4.2 [facility] Serum glucose measurement (m ass/volume)Ordered By: Oanh Mena on 11-02-2024 Glucose [Mass/Vol] 162 mg/dL High 70-99 [facility] Serum or plasma alanine singh otransferase (ALT) measurementOrdered By: Oanh Mena on 11-02-2024 ALT [Catalytic activity/Vol] 29 U/L <47 [facility] Serum or plasma albumin shayne urement (mass/volume)Ordered By: Oanh Mena on 11-02-2024 Albumin [Mass/Vol] 3.7 g/dL 3.4-4.8 [facility] Serum or plasma albumin/glob ulin mass ratioOrdered By: Oanh Mena on 11-02-2024 Albumin/Globulin [Mass ratio] 1.5 {ratio} 0.9-2.4 [facility] Serum or plasma alkaline floyd sphatase measurementOrdered By: Oanh Mena on 11-02-2024 ALP [Catalytic activity/Vol] 58 U/L 40-129 [facility] Serum or plasma calcium shayne urement (mass/volume)Ordered By: Oanh Mena on 11-02-2024 Calcium [Mass/Vol] 9.3 mg/dL 7.6-11.0 [facility] Serum or plasma urea nitroge n measurement (mass/volume)Ordered By: Oanh Mena on 11-02-2024 Urea nitrogen [Mass/Vol] 11 mg/dL 4-19 [facility] Sodium levelOrdered By: Cameron Mena on 11-02-2024 Sodium [Moles/Vol] 139 mmol/L 133-145 [facility] Total proteinOrdered By: Marilu Mena on 11-02-2024 Protein [Mass/Vol] 6.2 g/dL 5.9-8.4 [facility] White blood cell (WBC) count Ordered By: Oanh Mena on 11-02-2024 WBC (Bld) [#/Vol] 7.3 10*3/uL 4.4-11.0 [facility] Discharge Instructionon 10-10 Discharge Instruction [facility] Medical Records Department [address] [place] [address] Instructions for Home/Discharge Instructions 11/01/24 1123 MR#: [id number] Acct: [id number] Name: EMIL TRONCOSO Rep #: [id number] : 1955 69 From: Oanh Mena MD PCP: Dr. Yaz Zepeda MD Status:REG SD Discharge Instructions Diet Discharge Diet: Low fat / Low cholesterol DC O2, CPAP, BIPAP needs Home O2 Discharge instructions: No Dressing / Incision Discharge Activity: Return to Normal Activity May resume sexual activity in: No Restrictions Dressing / Incision Call your doctor if your incision/area has: Continuous Slow Oozing, Sudden Increased Bleeding, Increased Pain/ Swelling, Increased Redness, Foul Smelling Discharge and Swelling at the incision site Call your doctor if you observe: Fever of 101 or Higher, Coldness, Increased Pain, Numbness or Tingling and Change in Color Follow Up Care Please Follow Up With: Oanh Mena MD When: 2-4 weeks Test Results: Test results from this visit will be discussed in further detail at your follow-up appointment, if applicable. Discharge Plan Admission Attending Provider: Oanh Mena Primary Care Provider: Yaz Zepeda Instructions Print Language: Nepalese Discharge Orders/Prescriptions Prescriptions: No Action verapamil 180 mg capsule,ext rel. pellets 24 hr 180 mg PO QHS nitroglycerin 0.4 mg tablet, sublingual 0.4 mg SUBLINGUAL Q5-15M epinephrine 0.3 mg/0.3 mL auto-injector 0.3 mg IM ONCE PRN (Reason: ALLERGY) Rx Instructions: as a single dose tizanidine 4 mg capsule 4 mg PO Q8H PRN (Reason: MUSCLE RELAXANT) pantoprazole 40 MG tablet 40 mg PO DAILY Patient Comments: acid reflux albuterol sulfate 1 PUFF inhaler 2 puff INHALATION Q4H PRN PRN (Reason: Sob /Or Wheezing) Patient Comments: Shortness of breath Eliquis 5 MG tablet 5 mg PO BID multivitamin with minerals 1 EACH tablet 1 tab PO DAILY meclizine 25 MG tablet 25 mg PO TID PRN PRN (Reason: dizziness, vertigo) Qty: 30 0RF acetaminophen 325 mg Tablet 650 mg PO Q4H PRN PRN (Reason: Pain 1-10 Or Fever) Qty: 0 0RF clopidogrel 75 mg Tablet 75 mg PO DAILY Qty: 30 6RF rosuvastatin 10 mg tablet 10 mg PO QDAY Qty: 90 3RF isosorbide mononitrate 30 mg tablet extended release 24 hr 30 mg PO QAM Qty: 90 3RF Referrals / Follow Up: Yaz Zepeda MD [Primary Care Provider] - Disposition Disposition (needs filled in before D/C Order can be placed): Home, Self Care 11/01/24 1125 Oanh Mena MD CC: Dr. Yaz Zepeda MD Signed Normal [facility] Absolute lymphocyte countOrd ered By: Oanh Mena on 10-26-2024 Lymphocytes Auto (Unsp spec) [#/Vol] 1.69 10*3/uL 0.83-4.51 [facility] Absolute neutrophil countOrd ered By: Oanh Mena on 10-26-2024 Neutrophils (Bld) [#/Vol] 4.6 10*3/uL 2.0-7.7 [facility] Automated lymphocyte count a s percentage of total leukocytesOrdered By: Oanh Mena on 10-26-2024 Lymphocytes/100 WBC Auto (Unsp spec) 22.8 % 19-41 [facility] Basic Metabolic Profile (BMP )on 10-26-2024 BUN/CRE 15.8 RATIO Normal 10-20 [facility] Comment on above: Performed By: #### L 500.4050, L501.6710, L100.0500, L501.9520, L506.1000, L501.1400, L500.4100, L503.6620, L101.9900, L3100.7950 #### [facility] [address] [place], [address] Calcium [Mass/Vol] 9.2 mg/dL Normal 7.6-11.0 [facility] Comment on above: Performed By: #### L 500.4050, L501.6710, L100.0500, L501.9520, L506.1000, L501.1400, L500.4100, L503.6620, L101.9900, L3100.7950 #### [facility] [address] [place], [address] Chloride [Moles/Vol] 104 mmol/L Normal 98-108 [facility] Comment on above: Performed By: #### L 500.4050, L501.6710, L100.0500, L501.9520, L506.1000, L501.1400, L500.4100, L503.6620, L101.9900, L3100.7950 #### [facility] [address] [place], [address] CO2 [Moles/Vol] 25.6 mmol/L Normal 21.0-32.0 [facility] Comment on above: Performed By: #### L 500.4050, L501.6710, L100.0500, L501.9520, L506.1000, L501.1400, L500.4100, L503.6620, L101.9900, L3100.7950 #### [facility] [address] [place], [address] Creatinine [Mass/Vol] 0.77 mg/dL Normal 0.70-1.20 [facility] Comment on above: Performed By: #### L 500.4050, L501.6710, L100.0500, L501.9520, L506.1000, L501.1400, L500.4100, L503.6620, L101.9900, L3100.7950 #### [facility] [address] [place], [address] GAP 10 Normal 5-15 [facility] Comment on above: Performed By: #### L 500.4050, L501.6710, L100.0500, L501.9520, L506.1000, L501.1400, L500.4100, L503.6620, L101.9900, L3100.7950 #### [facility] [address] [place], [address] GFR/1.73 sq M.predicted among non-blacks MDRD (S/P/Bld) [Vol rate/Area] 96 mL/min/{1.73_m2} Normal >60 [facility] Comment on above: Result Comment: mL/m in/1.73m2 CKD-EPI Creatinine Equation (2020) Performed By: #### L 500.4050, L501.6710, L100.0500, L501.9520, L506.1000, L501.1400, L500.4100, L503.6620, L101.9900, L3100.7950 #### [facility] [address] [place], [address] Glucose [Mass/Vol] 139 mg/dL High 70-99 [facility] Comment on above: Performed By: #### L 500.4050, L501.6710, L100.0500, L501.9520, L506.1000, L501.1400, L500.4100, L503.6620, L101.9900, L3100.7950 #### [facility] [address] [place], [address] Potassium [Moles/Vol] 4.4 mmol/L Normal 3.3-5.1 [facility] Comment on above: Performed By: #### L 500.4050, L501.6710, L100.0500, L501.9520, L506.1000, L501.1400, L500.4100, L503.6620, L101.9900, L3100.7950 #### [facility] [address] [place], [place], [phone] Sodium [Moles/Vol] 139 mmol/L Normal 133-145 [facility] Comment on above: Performed By: #### L 500.4050, L501.6710, L100.0500, L501.9520, L506.1000, L501.1400, L500.4100, L503.6620, L101.9900, L3100.7950 #### [facility] [address] [place], [place], [id number] Urea nitrogen [Mass/Vol] 12 mg/dL Normal 4-19 [facility] Comment on above: Performed By: #### L 500.4050, L501.6710, L100.0500, L501.9520, L506.1000, L501.1400, L500.4100, L503.6620, L101.9900, L3100.7950 #### [facility] [address] [place], [address] Basophil percentageOrdered B y: Oanh Mena on 10-26-2024 Basophils/100 WBC (Bld) 0.7 % 0- [facility] CBC W/Diff, Automatedon 10-09 Absolute Lymph 1.69 X10 3/uL Normal 0.83-4.51 [facility] Comment on above: Performed By: #### L 500.4050, L501.6710, L100.0500, L501.9520, L506.1000, L501.1400, L500.4100, L503.6620, L101.9900, L3100.7950 #### [facility] [address] [facility] [place], [address] Absolute Neut 4.6 X10 3/uL Normal 2.0-7.7 [facility] Comment on above: Performed By: #### L 500.4050, L501.6710, L100.0500, L501.9520, L506.1000, L501.1400, L500.4100, L503.6620, L101.9900, L3100.7950 #### [facility] [address] [place], [address] Basophils/100 WBC (Bld) 0.7 % Normal 0-1 [facility] Comment on above: Performed By: #### L 500.4050, L501.6710, L100.0500, L501.9520, L506.1000, L501.1400, L500.4100, L503.6620, L101.9900, L3100.7950 #### [facility] [address] [facility] [place], [address] Eosinophils/100 WBC (Bld) 2.4 % Normal 0-5 [facility] Comment on above: Performed By: #### L 500.4050, L501.6710, L100.0500, L501.9520, L506.1000, L501.1400, L500.4100, L503.6620, L101.9900, L3100.7950 #### [facility] [address] [facility] [place], [address] Erythrocyte distribution width (RBC) [Ratio] 13.3 % Normal 11.6-14.6 [facility] Comment on above: Performed By: #### L 500.4050, L501.6710, L100.0500, L501.9520, L506.1000, L501.1400, L500.4100, L503.6620, L101.9900, L3100.7950 #### [facility] [address] [facility] [place], [address] Hematocrit (Bld) [Volume fraction] 41.6 % Normal 40-54 [facility] Comment on above: Performed By: #### L 500.4050, L501.6710, L100.0500, L501.9520, L506.1000, L501.1400, L500.4100, L503.6620, L101.9900, L3100.7950 #### [facility] [address] [facility] [place], [address] Hemoglobin (Bld) [Mass/Vol] 14.0 g/dL Normal 13.0-16.5 [facility] Comment on above: Performed By: #### L 500.4050, L501.6710, L100.0500, L501.9520, L506.1000, L501.1400, L500.4100, L503.6620, L101.9900, L3100.7950 #### [facility] [address] [facility] [place], [address] IG% 0.800 Normal 0.0-0.9 [facility] Comment on above: Result Comment: IG% - Immature Granulocytes (promyelocytes, myelocytes and metamyelocytes) > 1% indicates that a LEFT SHIFT is Present. Performed By: #### L 500.4050, L501.6710, L100.0500, L501.9520, L506.1000, L501.1400, L500.4100, L503.6620, L101.9900, L3100.7950 #### [facility] [address] [facility] [place], [address] Lymphocytes/100 WBC (Bld) 22.8 % Normal 19-41 [facility] Comment on above: Performed By: #### L 500.4050, L501.6710, L100.0500, L501.9520, L506.1000, L501.1400, L500.4100, L503.6620, L101.9900, L3100.7950 #### [facility] [address] [place], [address] MCH (RBC) [Entitic mass] 30.1 pg Normal 27.0-32.0 [facility] Comment on above: Performed By: #### L 500.4050, L501.6710, L100.0500, L501.9520, L506.1000, L501.1400, L500.4100, L503.6620, L101.9900, L3100.7950 #### [facility] [address] [place], [address] MCHC (RBC) [Mass/Vol] 33.7 g/dL Normal 32-36 [facility] Comment on above: Performed By: #### L 500.4050, L501.6710, L100.0500, L501.9520, L506.1000, L501.1400, L500.4100, L503.6620, L101.9900, L3100.7950 #### [facility] [address] [facility] [place], [address] MCV (RBC) [Entitic vol] 89.5 fL Normal 80-94 [facility] Comment on above: Performed By: #### L 500.4050, L501.6710, L100.0500, L501.9520, L506.1000, L501.1400, L500.4100, L503.6620, L101.9900, L3100.7950 #### [facility] [address] [facility] [place], [address] Monocytes/100 WBC (Bld) 11.3 % High 0-10 [facility] Comment on above: Performed By: #### L 500.4050, L501.6710, L100.0500, L501.9520, L506.1000, L501.1400, L500.4100, L503.6620, L101.9900, L3100.7950 #### [facility] [address] [facility] [place], [address] Neutrophils/100 WBC (Bld) 62.0 % Normal 47-70 [facility] Comment on above: Performed By: #### L 500.4050, L501.6710, L100.0500, L501.9520, L506.1000, L501.1400, L500.4100, L503.6620, L101.9900, L3100.7950 #### [facility] [address] [facility] [place], [address] Nucleated RBC (Bld) [#/Vol] 0 10*3/uL Normal 0-5 [facility] Comment on above: Performed By: #### L 500.4050, L501.6710, L100.0500, L501.9520, L506.1000, L501.1400, L500.4100, L503.6620, L101.9900, L3100.7950 #### [facility] [address] [place], [address] Platelet mean volume (Bld) [Entitic vol] 9.4 fL Normal 6.2-12.0 [facility] Comment on above: Performed By: #### L 500.4050, L501.6710, L100.0500, L501.9520, L506.1000, L501.1400, L500.4100, L503.6620, L101.9900, L3100.7950 #### [facility] [address] [facility] [place], [address] Platelets (Bld) [#/Vol] 272 10*3/uL Normal 150-450 [facility] Comment on above: Performed By: #### L 500.4050, L501.6710, L100.0500, L501.9520, L506.1000, L501.1400, L500.4100, L503.6620, L101.9900, L3100.7950 #### [facility] [address] [place], [address] RBC (Bld) [#/Vol] 4.65 10*6/uL Normal 4.6-6.2 [facility] Comment on above: Performed By: #### L 500.4050, L501.6710, L100.0500, L501.9520, L506.1000, L501.1400, L500.4100, L503.6620, L101.9900, L3100.7950 #### [facility] [address] [facility] [place], [address] RDW SD 43.4 fl Normal 35.1-43.9 [facility] Comment on above: Performed By: #### L 500.4050, L501.6710, L100.0500, L501.9520, L506.1000, L501.1400, L500.4100, L503.6620, L101.9900, L3100.7950 #### [facility] [address] [place], [address] WBC (Bld) [#/Vol] 7.4 10*3/uL Normal 4.4-11.0 [facility] Comment on above: Performed By: #### L 500.4050, L501.6710, L100.0500, L501.9520, L506.1000, L501.1400, L500.4100, L503.6620, L101.9900, L3100.7950 #### [facility] [address] [place], [address] ( Eosinophil percentageOrdered By: Oanh Mena on 10-26-2024 Eosinophils/100 WBC (Bld) 2.4 % 0-5 [facility] Immature granulocytes/100 WB C Auto (Bld)Ordered By: Oanh Mena on 10-26-2024 Immature granulocytes/100 WBC (Bld) 0.800 % 0.0-0.9 [facility] Comment on above: IG% - Immature Granu locytes (promyelocytes, myelocytes and metamyelocytes) > 1% indicates that a LEFT SHIFT is Present. International normalized rat io (INR) calculationOrdered By: Oanh Mena on 10-26-2024 INR Coag (Bld) [Relative time] 1.2 {INR} [facility] Monocyte percentageOrdered B y: [facility] on 10-26-2024 Monocytes/100 WBC (Bld) 11.3 % High 0-10 [facility] Neutrophil percentageOrdered By: [facility] on 10-26-2024 Neutrophils/100 WBC (Bld) 62.0 % 47-70 [facility] Nucleated red blood cell per centageOrdered By: Oanh Rajesh on 10-26-2024 Nucleated RBC/100 WBC (Bld) [Ratio] 0 % 0-5 [facility] Prothrombin Time w/INRon INR Coag (PPP) [Relative time] 1.2 {INR} Normal [facility] Comment on above: Performed By: #### L 500.4050, L501.6710, L100.0500, L501.9520, L506.1000, L501.1400, L500.4100, L503.6620, L101.9900, L3100.7950 #### [facility] [address] [place], [address] PT Coag (PPP) [Time] 15.5 s High 11.7-14.9 [facility] Comment on above: Performed By: #### L 500.4050, L501.6710, L100.0500, L501.9520, L506.1000, L501.1400, L500.4100, L503.6620, L101.9900, L3100.7950 #### [facility] [address] [place], [address] Prothrombin timeOrdered By: Oanh Mena on 10-26-2024 PT Coag (PPP) [Time] 15.5 s High 11.7-14.9 [facility] Cardiology Visit Reporton Cardiology Visit Report [facility] [address] [place] [address] OFFICE VISIT Date of Service: 10/13/24 MR#: [id number] Acct: [id number] Name: EMIL TRONCOSO Rep #: [id number] : 1955 Provider: Dr. Oanh Mena MD Age/Sex: 69/M Location: [facility] Status: Signed HPI HPI History of Present Illness Details: This gentleman has had coronary angiography done. He was noted to have significant lesions in his mid left circumflex and proximal RCA. Successful percutaneous intervention was done to the left circumflex with a drug-eluting stent. Staged PCI to the RCA was recommended. Patient continues to complain of chest pains. These are different in character at different times. Sometimes it is sharp. Other times it is dull. Location varying as well. Not related to exertion. He does complain of exertional dyspnea though. Intake Vital Signs 09/29/24 14:19 10/13/24 07:49 Height 5 ft 9 in 5 ft 9 in Weight: 178 lb BMI 26.2 BP 144/77 H Blood Pressure Location Lt brachial Position Sitting Respiration 18 Pulse 61 Pulse Source NIBP Intake Visit Reasons: S/P CATH ON 09/29 [employer] Required: No Accompanied by: Is patient in pain?: No Allergies bee venom protein (honey bee) Allergy (Verified 10/13/24 10:00) Anaphylaxis cefadroxil hydrate (From Duricef) Allergy (Verified 10/13/24 10:00) Rash niacin (From Niaspan Extended-Release) Allergy (Verified 10/13/24 10:00) Rash azatadine Adverse Reaction (Verified 10/13/24 10:00) Other pseudoephedrine Adverse Reaction (Verified 10/13/24 10:00) Other Medications ???Medication ???Instructions ???Recorded ???Confirmed ???Type pantoprazole 40 mg tablet,delayed 40 mg PO DAILY reflux 08/08/13 History release albuterol sulfate 90 mcg/actuation 2 puff inhalation Q4H PRN PRN So b 04/01/16 10/13/24 History aerosol inhaler /Or Wheezing apixaban 5 mg tablet (Eliquis) 5 mg PO BID blood thinner 10/01/18 10/13/24 History nitroglycerin 0.4 mg sublingual 0.4 mg sublingual Q5-15M chest shayna n 10/26/18 10/13/24 History tablet verapamil 180 mg 24 hr 180 mg PO QHS blood pressure 10/2610/13/24 History capsule,extended release multivitamin with minerals 1 tab PO DAILY supplement 05/06/19 10/13/24 History epinephrine 0.3 mg/0.3 mL 0.3 mg IM ONCE PRN ALLERGY 0 10/13/24 History injection, auto-injector meclizine 25 mg tablet 25 mg PO TID PRN PRN dizziness, 10/13/24 Rx vertigo #30 tabs tizanidine 4 mg capsule 4 mg PO Q8H PRN MUSCLE RELAXANT 10/13/24 History rosuvastatin 10 mg tablet 5 mg PO QHS cholesterol 04/06/23 0 10/13/24 History acetaminophen 325 mg tablet 650 mg (2 x 325 mg) PO Q4H PRN PRN 04/09/23 10/13/24 Rx Pain 1-10 Or Fever #0 tabs clopidogrel 75 mg tablet 75 mg PO DAILY #30 tabs 09/29/24 0 10/13/24 Rx Ejection fraction %: 65 Have you fallen in the past year?: No PFSH Medical History (Updated 10/13/24 @ 10:[address] Oanh Mena MD) Nonischemic cardiomyopathy Wears dentures History of diverticulitis CAD (coronary artery disease) Right inguinal hernia Abnormal nuclear stress test Atherosclerotic heart disease of [place] coronary artery without angina pectoris Wears glasses Wears partial dentures Cancer Depression Anxiety Abrasion Arthritis Fatty liver Easy bruising Excessive bleeding Restless legs Vertigo Gastric reflux Sleep apnea CPAP (continuous positive airway pressure) dependence Shortness of breath on exertion Non-smoker History of edema Leg cramps History of echocardiogram Hypertension History of heart attack Chest pain History of stress test Cardiology follow-up encounter Abdominal pain Vertigo Squamous cell carcinoma Elevated troponin I level (2005) Nonobstructive atherosclerosis of coronary artery Recurrent deep vein thrombosis (DVT) Obstructive sleep apnea Gastroesophageal reflux disease Talamantes's esophagus Paroxysmal supraventricular tachycardia Osteoarthritis Insomnia Carotid artery occlusion without infarction Diverticulitis Type 2 diabetes mellitus without complication Asthma Myalgia Facial paresthesia (07/2018) Pericarditis Migraines History of GI bleed Hyperlipidemia Essential hypertension GI bleed Surgical History History of robot-assisted repair of right inguinal hernia History of esophagogastroduodenoscopy (EGD) History of colonoscopy History of left heart catheterization (06/03/22) History of left knee surgery History of inguinal hernia repair History of appendectomy Family History Brother Cancer prostate Diabetes Father Cancer stomach CAD (coronary rachel (more content not included)... Normal [facility] Anion gap in Serum or Plasma Ordered By: Oanh Mena on 09-30-2024 Anion gap [Moles/Vol] 11 mmol/L 5- [facility] BUN/creatinine ratioOrdered By: Oanh Mena on 09-30-2024 Urea nitrogen/Creatinine [Mass ratio] 17.3 mg/mg 10- [facility] Bilirubin, totalOrdered By: Oanhyarely Mena on 09-30-2024 Bilirubin [Mass/Vol] 0.31 mg/dL 0.00-1.30 [facility] CBC-Complete Blood Cnt No Di ffon 09-30-2024 Erythrocyte distribution width (RBC) [Ratio] 13.5 % Normal 11.6-14.6 [facility] Comment on above: Performed By: #### L 500.4050, L501.6710, L100.0500, L501.9520, L506.1000, L501.1400, L500.4100, L503.6620, L101.9900, L3100.7950 #### [facility] [address] [place], [place], [address] Hematocrit (Bld) [Volume fraction] 39.2 % Low 40-54 [facility] Comment on above: Performed By: #### L 500.4050, L501.6710, L100.0500, L501.9520, L506.1000, L501.1400, L500.4100, L503.6620, L101.9900, L3100.7950 #### [facility] [address] [place], [address] Hemoglobin (Bld) [Mass/Vol] 13.2 g/dL Normal 13.0-16.5 [facility] Comment on above: Performed By: #### L 500.4050, L501.6710, L100.0500, L501.9520, L506.1000, L501.1400, L500.4100, L503.6620, L101.9900, L3100.7950 #### [facility] [address] [facility] [place], [address] MCH (RBC) [Entitic mass] 30.7 pg Normal 27.0-32.0 [facility] Comment on above: Performed By: #### L 500.4050, L501.6710, L100.0500, L501.9520, L506.1000, L501.1400, L500.4100, L503.6620, L101.9900, L3100.7950 #### [facility] [address] [facility] [place], [address] MCHC (RBC) [Mass/Vol] 33.7 g/dL Normal 32-36 [facility] Comment on above: Performed By: #### L 500.4050, L501.6710, L100.0500, L501.9520, L506.1000, L501.1400, L500.4100, L503.6620, L101.9900, L3100.7950 #### [facility] [address] [place], [address] MCV (RBC) [Entitic vol] 91.2 fL Normal 80-94 [facility] Comment on above: Performed By: #### L 500.4050, L501.6710, L100.0500, L501.9520, L506.1000, L501.1400, L500.4100, L503.6620, L101.9900, L3100.7950 #### [facility] [address] [facility] [place], [address] ( Platelet mean volume (Bld) [Entitic vol] 9.7 fL Normal 6.2-12.0 [facility] Comment on above: Performed By: #### L 500.4050, L501.6710, L100.0500, L501.9520, L506.1000, L501.1400, L500.4100, L503.6620, L101.9900, L3100.7950 #### [facility] [address] [facility] [place], [address] (815) Platelets (Bld) [#/Vol] 242 10*3/uL Normal 150-450 [facility] Comment on above: Performed By: #### L 500.4050, L501.6710, L100.0500, L501.9520, L506.1000, L501.1400, L500.4100, L503.6620, L101.9900, L3100.7950 #### [facility] [address] [facility] [place], [address] RBC (Bld) [#/Vol] 4.30 10*6/uL Low 4.6-6.2 [facility] Comment on above: Performed By: #### L 500.4050, L501.6710, L100.0500, L501.9520, L506.1000, L501.1400, L500.4100, L503.6620, L101.9900, L3100.7950 #### [facility] [address] [facility] [place], [address] ( RDW SD 45.1 fl High 35.1-43.9 [facility] Comment on above: Performed By: #### L 500.4050, L501.6710, L100.0500, L501.9520, L506.1000, L501.1400, L500.4100, L503.6620, L101.9900, L3100.7950 #### [facility] [address] [place], [place], [id number] (712) WBC (Bld) [#/Vol] 8.2 10*3/uL Normal 4.4-11.0 [facility] Comment on above: Performed By: #### L 500.4050, L501.6710, L100.0500, L501.9520, L506.1000, L501.1400, L500.4100, L503.6620, L101.9900, L3100.7950 #### [facility] [address], [address] Carbon dioxide, total [Moles /volume] in Central venous bloodOrdered By: Oanh Mena on 09-30-2024 CO2 [Moles/Vol] 20.4 mmol/L Low 21.0-32.0 [facility] Chloride assayOrdered By: Stephan Mena on 09-30-2024 Chloride [Moles/Vol] 109 mmol/L High 98-108 [facility] Comprehensive Metabolic Prof ilon 09-30-2024 Albumin [Mass/Vol] 3.6 g/dL Normal 3.4-4.8 [facility] Comment on above: Performed By: #### L 500.4050, L501.6710, L100.0500, L501.9520, L506.1000, L501.1400, L500.4100, L503.6620, L101.9900, L3100.7950 #### [facility] [address] [place], [address] (077) Albumin/Globulin [Mass ratio] 1.6 {ratio} Normal 0.9-2.4 [facility] Comment on above: Performed By: #### L 500.4050, L501.6710, L100.0500, L501.9520, L506.1000, L501.1400, L500.4100, L503.6620, L101.9900, L3100.7950 #### [facility] [address] [place], [address] ALK PHOS 46 U/L Normal 40-129 [facility] Comment on above: Performed By: #### L 500.4050, L501.6710, L100.0500, L501.9520, L506.1000, L501.1400, L500.4100, L503.6620, L101.9900, L3100.7950 #### [facility] [address] [place], [address] ALT [Catalytic activity/Vol] 19 U/L Normal <=46 [facility] Comment on above: Performed By: #### L 500.4050, L501.6710, L100.0500, L501.9520, L506.1000, L501.1400, L500.4100, L503.6620, L101.9900, L3100.7950 #### [facility] [address] [place], [address] AST [Catalytic activity/Vol] 23 U/L Normal <=37 [facility] Comment on above: Performed By: #### L 500.4050, L501.6710, L100.0500, L501.9520, L506.1000, L501.1400, L500.4100, L503.6620, L101.9900, L3100.7950 #### [facility] [address] [place], [address] Bilirubin [Mass/Vol] 0.31 mg/dL Normal 0.00-1.30 [facility] Comment on above: Performed By: #### L 500.4050, L501.6710, L100.0500, L501.9520, L506.1000, L501.1400, L500.4100, L503.6620, L101.9900, L3100.7950 #### [facility] [address] [place], [address] BUN/CRE 17.3 RATIO Normal 10-20 [facility] Comment on above: Performed By: #### L 500.4050, L501.6710, L100.0500, L501.9520, L506.1000, L501.1400, L500.4100, L503.6620, L101.9900, L3100.7950 #### [facility] [address] [place], [address] Calcium [Mass/Vol] 8.7 mg/dL Normal 7.6-11.0 [facility] Comment on above: Performed By: #### L 500.4050, L501.6710, L100.0500, L501.9520, L506.1000, L501.1400, L500.4100, L503.6620, L101.9900, L3100.7950 #### [facility] [address] [place], [address] Chloride [Moles/Vol] 109 mmol/L High 98-108 [facility] Comment on above: Performed By: #### L 500.4050, L501.6710, L100.0500, L501.9520, L506.1000, L501.1400, L500.4100, L503.6620, L101.9900, L3100.7950 #### [facility] [address] [place], [address] CO2 [Moles/Vol] 20.4 mmol/L Low 21.0-32.0 [facility] Comment on above: Performed By: #### L 500.4050, L501.6710, L100.0500, L501.9520, L506.1000, L501.1400, L500.4100, L503.6620, L101.9900, L3100.7950 #### [facility] [address] [place], [address] Creatinine [Mass/Vol] 0.67 mg/dL Low 0.70-1.20 [facility] Comment on above: Performed By: #### L 500.4050, L501.6710, L100.0500, L501.9520, L506.1000, L501.1400, L500.4100, L503.6620, L101.9900, L3100.7950 #### [facility] [address] [place], [address] ECRCL 84.69 ml/min Normal 50-250 [facility] Comment on above: Performed By: #### L 500.4050, L501.6710, L100.0500, L501.9520, L506.1000, L501.1400, L500.4100, L503.6620, L101.9900, L3100.7950 #### [facility] [address] [place], [place], [id number] GAP 11 Normal 5-15 [facility] Comment on above: Performed By: #### L 500.4050, L501.6710, L100.0500, L501.9520, L506.1000, L501.1400, L500.4100, L503.6620, L101.9900, L3100.7950 #### [facility] [address] [facility] [place], [address] GFR/1.73 sq M.predicted among non-blacks MDRD (S/P/Bld) [Vol rate/Area] 100 mL/min/{1.73_m2} Normal >60 [facility] Comment on above: Result Comment: mL/m in/1.73m2 CKD-EPI Creatinine Equation (2020) Performed By: #### L 500.4050, L501.6710, L100.0500, L501.9520, L506.1000, L501.1400, L500.4100, L503.6620, L101.9900, L3100.7950 #### [facility] [address] [place], [address] Globulin (S) [Mass/Vol] 2.3 g/dL Normal 2.2-4.2 [facility] Comment on above: Performed By: #### L 500.4050, L501.6710, L100.0500, L501.9520, L506.1000, L501.1400, L500.4100, L503.6620, L101.9900, L3100.7950 #### [facility] [address] [facility] [place], [address] Glucose [Mass/Vol] 160 mg/dL High 70-99 [facility] Comment on above: Performed By: #### L 500.4050, L501.6710, L100.0500, L501.9520, L506.1000, L501.1400, L500.4100, L503.6620, L101.9900, L3100.7950 #### [facility] [address] [facility] [place], [address] Potassium [Moles/Vol] 3.9 mmol/L Normal 3.3-5.1 [facility] Comment on above: Performed By: #### L 500.4050, L501.6710, L100.0500, L501.9520, L506.1000, L501.1400, L500.4100, L503.6620, L101.9900, L3100.7950 #### [facility] [address] [place], [address] Sodium [Moles/Vol] 140 mmol/L Normal 133-145 [facility] Comment on above: Performed By: #### L 500.4050, L501.6710, L100.0500, L501.9520, L506.1000, L501.1400, L500.4100, L503.6620, L101.9900, L3100.7950 #### [facility] [address] [facility] [place], [address] T PROT 5.9 g/dL Normal 5.9-8.4 [facility] Comment on above: Performed By: #### L 500.4050, L501.6710, L100.0500, L501.9520, L506.1000, L501.1400, L500.4100, L503.6620, L101.9900, L3100.7950 #### [facility] [address] [facility] [place], [address] Urea nitrogen [Mass/Vol] 12 mg/dL Normal 4-19 [facility] Comment on above: Performed By: #### L 500.4050, L501.6710, L100.0500, L501.9520, L506.1000, L501.1400, L500.4100, L503.6620, L101.9900, L3100.7950 #### [facility] [address] [facility] [place], [address] Erythrocyte distribution wid th ratioOrdered By: Oanh Mena on 09-30-2024 Erythrocyte distribution width (RBC) [Ratio] 13.5 % 11.6-14.6 [facility] Erythrocyte distribution wid th standard deviationOrdered By: Oanh Mena on 09-30-2024 Erythrocyte distribution width (RBC) [Ratio] 45.1 fl High 35.1-43.9 [facility] Glomerular filtration rate ( GFR) estimation/1.73 sq m using serum, plasma, or whole bOrdered By: Oanh Mena on 09-30-2024 GFR/1.73 sq M.predicted among non-blacks MDRD (S/P/Bld) [Vol rate/Area] 100 mL/min/{1.73_m2} >60 [facility] Comment on above: mL/min/1.73m2 CKD-EP I Creatinine Equation (2020) Hematocrit Auto (Bld) [Volum e fraction]Ordered By: Oanh Mena on 09-30-2024 Hematocrit (Bld) [Volume fraction] 39.2 % Low 40-54 [facility] Hemoglobin measurementOrdere d By: Oanh Mena on 09-30-2024 Hemoglobin (Bld) [Mass/Vol] 13.2 g/dL 13.0-16.5 [facility] - Chemistry and C hemistry - challengeOrdered By: Oanh eMna on 09-30-2024 AST [Catalytic activity/Vol] 23 U/L <38 [facility] MCV (mean corpuscular volume ) determinationOrdered By: Oanh Mena on 09-30-2024 MCV (RBC) [Entitic vol] 91.2 fL 80-94 [facility] Mean corpuscular hemoglobin (MCH) determinationOrdered By: Oanh Mena on 09-30-2024 MCH (RBC) [Entitic mass] 30.7 pg 27.0-32.0 [facility] Mean corpuscular hemoglobin concentration (MCHC) determinationOrdered By: Oanh Mena on 09-30-2024 MCHC (RBC) [Mass/Vol] 33.7 g/dL 32-36 [facility] Mean platelet volume determi nationOrdered By: Oanh Mena on 09-30-2024 Platelet mean volume (Bld) [Entitic vol] 9.7 fL 6.2-12.0 [facility] Platelet countOrdered By: Stephan Mena on 09-30-2024 Platelets (Bld) [#/Vol] 242 10*3/uL 150-450 [facility] Potassium measurement (mass/ volume)Ordered By: Oanh Mena on 09-30-2024 Potassium (Unsp spec) [Mass/Vol] 3.9 mmol/L 3.3-5.1 [facility] RBC Auto (Bld) [#/Vol]Ordere d By: Oanh Mena on 09-30-2024 RBC (Bld) [#/Vol] 4.30 10*6/uL Low 4.6-6.2 [facility] Serum creatinine measurement (mass/volume)Ordered By: Oanh Mena on 09-30-2024 Creatinine [Mass/Vol] 0.67 mg/dL Low 0.70-1.20 [facility] Serum globulin measurementOr dered By: Oanh Mena on 09-30-2024 Globulin (S) [Mass/Vol] 2.3 g/dL 2.2-4.2 [facility] Serum glucose measurement (m ass/volume)Ordered By: Oanh Mena on 09-30-2024 Glucose [Mass/Vol] 160 mg/dL High 70-99 [facility] Serum or plasma alanine singh otransferase (ALT) measurementOrdered By: Oanh Mena on 09-30-2024 ALT [Catalytic activity/Vol] 19 U/L <47 [facility] Serum or plasma albumin shayne urement (mass/volume)Ordered By: Oanh Mena on 09-30-2024 Albumin [Mass/Vol] 3.6 g/dL 3.4-4.8 [facility] Serum or plasma albumin/glob ulin mass ratioOrdered By: Oanhyarely Mena on 09-30-2024 Albumin/Globulin [Mass ratio] 1.6 {ratio} 0.9-2.4 [facility] Serum or plasma alkaline floyd sphatase measurementOrdered By: Oanh Mena on 09-30-2024 ALP [Catalytic activity/Vol] 46 U/L 40-129 [facility] Serum or plasma calcium shayne urement (mass/volume)Ordered By: Oanhyarely Mena on 09-30-2024 Calcium [Mass/Vol] 8.7 mg/dL 7.6-11.0 [facility] Serum or plasma urea nitroge n measurement (mass/volume)Ordered By: Oanh Mena on 09-30-2024 Urea nitrogen [Mass/Vol] 12 mg/dL 4-19 [facility] Sodium levelOrdered By: Cameron Mena on 09-30-2024 Sodium [Moles/Vol] 140 mmol/L 133-145 [facility] Total proteinOrdered By: Marilu Mena on 09-30-2024 Protein [Mass/Vol] 5.9 g/dL 5.9-8.4 [facility] White blood cell (WBC) count Ordered By: Oanh Mena on 09-30-2024 WBC (Bld) [#/Vol] 8.2 10*3/uL 4.4-11.0 [facility] 12 Lead EKGon 09-29-2024 12 Lead EKG [facility] [address] [place] [address] 12 Lead EKG 09/29/24 1453 MR#: [id number] Acct: [id number] Name: EMIL TRONCOSO Rep #: [id number] : 1955 69 From: Brittney Grayson MD Attending Dr: Dr. Oanh Mena MD Status: DIS BLAS Ordering Dr: Oanh Mena MD Date: 09/29/24 Location: U Sex: M C Admitted: 09/29/24 Test Reason : PCI Blood Pressure : */* mmHG Vent. 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 Oanh Mena MD; Dr. Yaz Zepeda MD Signed Normal [facility] ACT Activated Clotting Timeo n 09-29-2024 ACTk CLOT TIME 222 sec High 74-137 [facility] Comment on above: Performed By: #### L 9100.0100 #### [facility] [address] [place], [address] ACTk CLOT TIME 228 sec High 74-137 [facility] Comment on above: Performed By: #### L 500.4050, L501.6710, L100.0500, L501.9520, L506.1000, L501.1400, L500.4100, L503.6620, L101.9900, L3100.7950 #### [facility] [address] [place], [address] Cardiac Cath Interventionon 09-29-2024 Cardiac Cath Intervention [facility] [address] [place] [address] Cardiac Cath Intervention MR#: [id number] Acct: [id number] Name: EMIL TRONCOSO Rep #: [id number] : 1955 69 From: Oanh Mena MD PCP: Dr. Yaz Zepeda MD Status:REG [facility] [place] Patient Name: EMIL TRONCOSO Study Date: 09/29/2024 Performing: Oanh Mena MD Ht: 69 inches 175.26 cm : 1955 Wt: 174.01 lbs 78.93 kg Age: 69 Gender: male BSA: 1.95 PROCEDURE(S) PERFORMED DC02-(67977)[facility]/COR IC12-(23521/C9600)EMERITA W/WO PTCA, SINGLE CORONARY ARTERY CLINICAL PROFILE AND CO-MORBIDITIES Indications: Worsening Angina Heart Failure: None Stress/Imaging Stress Test w/SPECT MPI: Yes Result: Positive Intermediate Risk Stress Test with SPECT MPI: Positive Intermediate Risk CAD Presentations: Symptom unlikely to be ischemic. CONCLUSIONS 40% Prox LAD 80% Mid LCX 70% Prox RCA, 65% Prox RPDA Successful EMERITA Mid LCX using Vidal [place] 3.0x22 mm RECOMMENDATIONS P2Y12 inhibitors for atleast 12 months Continue patient's Apixaban Staged PCI to RCA DESCRIPTION OF PROCEDURE The patient arrived to the procedure lab. The risks and benefits of the procedure as well as a full description of our services here and lack of surgical backup were fully explained to the patient and/or their significant other prior to the catheterization. The Timeout was completed, verifying the correct patient and procedure. The patient's procedural site was prepped and draped in the usual fashion. Local anesthetic was given subcutaneously to right radial region with Lidocaine 2%. Using a modified Seldinger technique, arterial access was obtained via the right radial artery, a 6Fr sheath was inserted.. Right Coronary Artery selective angiography was then performed in multiple views using a 5 Fr. 4.0 [place] catheter. Left Coronary Artery selective angiography was performed in multiple views using a 5 Fr. JL3.5 catheterThe images were reviewed and options discussed. A decision was then made to proceed with an Intervention, IVUS or other adjunct procedure. XB 3.0 Guide catheter was inserted and engaged into the LCA. Runthrough Guide wire was advanced to the circumflex [place] 3.0x22 Drug Eluting stent was inserted. Angiogram performed post stent deployment. NC Emerge 3.00x15 Balloon catheter was inserted. Post stent PTCA balloon inflated at 16 atms for 13 secs. Angiogram performed post balloon dilatation. The arterial sheath was pulled and a TR Band was applied for hemostasis w/ 10ml air CORONARY ANGIOGRAPHY DOMINANCE: Right Dominant LEFT MAIN: Angiographically normal LEFT ANTERIOR DESCENDING ARTERY: LAD: Calcified 40% Proximal lesion in LAD RIGHT CORONARY ARTERY: RCA: Tubular 70% Proximal lesion in RCA RT PDA: Tubular 65% Ostial lesion in RT PDA INTERVENTION INFORMATION LESION SITE: Circumflex (Mid) Lesion Complexity: High/C, lesion length: 20 mm Pre Stenosis: 80 % Pre intervention BARRY flow: 3 PROCEDURE: Drug Eluting Stent with post dilatation Post Stenosis: 0 % Post intervention BARRY flow: 3 Lesion Devices: Terumo .014 180cm Runthrough Extra Floppy straight Cordis 6 Fr XB3.0 100cm Guide Catheter Medtronic 3.0 x 22 VIDAL FRONTIER EMERITA Devan Sci NC EMERGE MR 3.00x15 BALLOON COMPLICATIONS No Complications PROCEDURE MEDICATIONS Versed 1 mg IV Fentanyl 50 mcg IV Oxygen: 2 L/min via nasal cannula Brilinta 180 mg PO @ 09/29/2024 13:14:49 Heparin given IA 09/29/2024 12:57:48 Heparin 5000 unit(s) IV 09/29/2024 13:11:08 Heparin 2000 unit(s) IV 09/29/2024 13:20:10 Heparin 3000 unit(s) IV 09/29/2024 13:41:55 Nitro 200 mcg IC 09/29/2024 13:24:07 Nitro 200 mcg IC 09/29/2024 13:24:07 Nitro 200 mcg IC 09/29/2024 13:26:25 Verapamil 2.5mg, Ntg 200mcgs, 2000 units of Heparin given IA 09/29/2024 12:57:48 IV Bolus: .9 NaCl ml total 09/29/2024 13:09:27 SUMMARY OF HEMODYNAMIC DATA Time AIR REST AO 124/65 (89) SA 13:04:01 AO 147/73 (100) 13:16:03 ECG 13:47:59 Signed By Oanh Mena MD On 09/29/2024 13:48:39 Oanh Mena MD 09/29/24 1349 Date Oanh Mena MD Cosigner Signature: Date (if indicated) CC: Dr. Oanh Mena MD; Dr. Yaz Zepeda MD Date Dictated: 09/29/24 1254 Date Transcribed: 09/29/24 1348 Crew Team Member: STEPHAN Signed Normal [facility] Discharge Instructionon 09-09 Discharge Instruction [facility] Medical Records Department [address] [place] [address] Instructions for Home/Discharge Instructions 09/29/24 1353 MR#: [id number] Acct: [id number] Name: EMIL TRONCOSO Rep #: [id number] : 1955 69 From: Oanh Mena MD PCP: Dr. Yaz Zepeda MD Status:REG SDC Discharge Instructions DC O2, CPAP, BIPAP needs Home O2 Discharge instructions: No Dressing / Incision Discharge Activity: Return to Normal Activity Dressing / Incision Call your doctor if your incision/area has: Continuous Slow Oozing, Sudden Increased Bleeding, Increased Pain/ Swelling, Increased Redness, Foul Smelling Discharge and Swelling at the incision site Call your doctor if you observe: Fever of 101 or Higher, Coldness, Increased Pain, Numbness or Tingling and Change in Color Follow Up Care Please Follow Up With: Oanh Mena MD When: 2 weeks Test Results: Test results from this visit will be discussed in further detail at your follow-up appointment, if applicable. Discharge Plan Admission Attending Provider: Oanh Mena Primary Care Provider: Yaz Zepeda Instructions Print Language: Nepalese Discharge Orders/Prescriptions Prescriptions: New clopidogrel 75 mg Tablet 75 mg PO DAILY Qty: 30 6RF Continued verapamil 180 mg capsule,ext rel. pellets 24 hr 180 mg PO QHS nitroglycerin 0.4 mg tablet, sublingual 0.4 mg SUBLINGUAL Q5-15M epinephrine 0.3 mg/0.3 mL auto-injector 0.3 mg IM ONCE PRN (Reason: ALLERGY) Rx Instructions: as a single dose tizanidine 4 mg capsule 4 mg PO Q8H PRN (Reason: MUSCLE RELAXANT) pantoprazole 40 MG tablet 40 mg PO DAILY Patient Comments: acid reflux albuterol sulfate 1 PUFF inhaler 2 puff INHALATION Q4H PRN PRN (Reason: Sob /Or Wheezing) Patient Comments: Shortness of breath Eliquis 5 MG tablet 5 mg PO BID multivitamin with minerals 1 EACH tablet 1 tab PO DAILY meclizine 25 MG tablet 25 mg PO TID PRN PRN (Reason: dizziness, vertigo) Qty: 30 0RF rosuvastatin 10 mg tablet 5 mg PO QHS acetaminophen 325 mg Tablet 650 mg PO Q4H PRN PRN (Reason: Pain 1-10 Or Fever) Qty: 0 0RF Discontinued aspirin 81 MG tablet,chewable 81 mg PO QHS Patient Comments: antiplatelet Referrals / Follow Up: Yaz Zepeda MD [Primary Care Provider] - Disposition Disposition (needs filled in before D/C Order can be placed): Home, Self Care 09/29/24 1356 Oanh Mena MD CC: Dr. Yaz Zepeda MD Signed Normal [facility] Absolute lymphocyte countOrd ered By: Will Vences on 09-19-2024 Lymphocytes Auto (Unsp spec) [#/Vol] 1.72 10*3/uL 0.83-4.51 [facility] Absolute neutrophil countOrd ered By: Will Vences on 09-19-2024 Neutrophils (Bld) [#/Vol] 4.2 10*3/uL 2.0-7.7 [facility] Automated lymphocyte count a s percentage of total leukocytesOrdered By: Will Vences on 09-19-2024 Lymphocytes/100 WBC Auto (Unsp spec) 24.5 % 19-41 [facility] Basic Metabolic Profile (BMP )on 09-19-2024 BUN/CRE 21.3 RATIO High 10-20 [facility] Comment on above: Performed By: #### L 500.4050, L501.6710, L100.0500, L501.9520, L506.1000, L501.1400, L500.4100, L503.6620, L101.9900, L3100.7950 #### [facility] [address] [place], [address] Calcium [Mass/Vol] 9.2 mg/dL Normal 7.6-11.0 [facility] Comment on above: Performed By: #### L 500.4050, L501.6710, L100.0500, L501.9520, L506.1000, L501.1400, L500.4100, L503.6620, L101.9900, L3100.7950 #### [facility] [address] [place], [address] Chloride [Moles/Vol] 106 mmol/L Normal 98-108 [facility] Comment on above: Performed By: #### L 500.4050, L501.6710, L100.0500, L501.9520, L506.1000, L501.1400, L500.4100, L503.6620, L101.9900, L3100.7950 #### [facility] [address] [place], [address] CO2 [Moles/Vol] 23.0 mmol/L Normal 21.0-32.0 [facility] Comment on above: Performed By: #### L 500.4050, L501.6710, L100.0500, L501.9520, L506.1000, L501.1400, L500.4100, L503.6620, L101.9900, L3100.7950 #### [facility] [address] [place], [address] Creatinine [Mass/Vol] 0.67 mg/dL Low 0.70-1.20 [facility] Comment on above: Performed By: #### L 500.4050, L501.6710, L100.0500, L501.9520, L506.1000, L501.1400, L500.4100, L503.6620, L101.9900, L3100.7950 #### [facility] [address] [place], [address] GAP 11 Normal 5-15 [facility] Comment on above: Performed By: #### L 500.4050, L501.6710, L100.0500, L501.9520, L506.1000, L501.1400, L500.4100, L503.6620, L101.9900, L3100.7950 #### [facility] [address] [place], [address] GFR/1.73 sq M.predicted among non-blacks MDRD (S/P/Bld) [Vol rate/Area] 100 mL/min/{1.73_m2} Normal >60 [facility] Comment on above: Result Comment: mL/m in/1.73m2 CKD-EPI Creatinine Equation (2020) Performed By: #### L 500.4050, L501.6710, L100.0500, L501.9520, L506.1000, L501.1400, L500.4100, L503.6620, L101.9900, L3100.7950 #### [facility] [address] [place], [address] Glucose [Mass/Vol] 142 mg/dL High 70-99 [facility] Comment on above: Performed By: #### L 500.4050, L501.6710, L100.0500, L501.9520, L506.1000, L501.1400, L500.4100, L503.6620, L101.9900, L3100.7950 #### [facility] [address], [address] Potassium [Moles/Vol] 4.2 mmol/L Normal 3.3-5.1 [facility] Comment on above: Performed By: #### L 500.4050, L501.6710, L100.0500, L501.9520, L506.1000, L501.1400, L500.4100, L503.6620, L101.9900, L3100.7950 #### [facility] [address], [address] Sodium [Moles/Vol] 140 mmol/L Normal 133-145 [facility] Comment on above: Performed By: #### L 500.4050, L501.6710, L100.0500, L501.9520, L506.1000, L501.1400, L500.4100, L503.6620, L101.9900, L3100.7950 #### [facility] [address], [address] Urea nitrogen [Mass/Vol] 14 mg/dL Normal 4-19 [facility] Comment on above: Performed By: #### L 500.4050, L501.6710, L100.0500, L501.9520, L506.1000, L501.1400, L500.4100, L503.6620, L101.9900, L3100.7950 #### [facility] [address] [place], [address] Basophil percentageOrdered B y: iWll Vences on 09-19-2024 Basophils/100 WBC (Bld) 0.9 % 0-1 [facility] CBC W/Diff, Automatedon 09-08 Absolute Lymph 1.72 X10 3/uL Normal 0.83-4.51 [facility] Comment on above: Performed By: #### L 500.4050, L501.6710, L100.0500, L501.9520, L506.1000, L501.1400, L500.4100, L503.6620, L101.9900, L3100.7950 #### [facility] [address] [place], [address] Absolute Neut 4.2 X10 3/uL Normal 2.0-7.7 [facility] Comment on above: Performed By: #### L 500.4050, L501.6710, L100.0500, L501.9520, L506.1000, L501.1400, L500.4100, L503.6620, L101.9900, L3100.7950 #### [facility] [address] [facility] [place], [address] Basophils/100 WBC (Bld) 0.9 % Normal 0-1 [facility] Comment on above: Performed By: #### L 500.4050, L501.6710, L100.0500, L501.9520, L506.1000, L501.1400, L500.4100, L503.6620, L101.9900, L3100.7950 #### [facility] [address] [facility] [place], [address] Eosinophils/100 WBC (Bld) 2.7 % Normal 0-5 [facility] Comment on above: Performed By: #### L 500.4050, L501.6710, L100.0500, L501.9520, L506.1000, L501.1400, L500.4100, L503.6620, L101.9900, L3100.7950 #### [facility] [address] [place], [address] Erythrocyte distribution width (RBC) [Ratio] 13.0 % Normal 11.6-14.6 [facility] Comment on above: Performed By: #### L 500.4050, L501.6710, L100.0500, L501.9520, L506.1000, L501.1400, L500.4100, L503.6620, L101.9900, L3100.7950 #### [facility] [address] [place], [address] Hematocrit (Bld) [Volume fraction] 42.1 % Normal 40-54 [facility] Comment on above: Performed By: #### L 500.4050, L501.6710, L100.0500, L501.9520, L506.1000, L501.1400, L500.4100, L503.6620, L101.9900, L3100.7950 #### [facility] [address] [facility] [place], [address] Hemoglobin (Bld) [Mass/Vol] 14.6 g/dL Normal 13.0-16.5 [facility] Comment on above: Performed By: #### L 500.4050, L501.6710, L100.0500, L501.9520, L506.1000, L501.1400, L500.4100, L503.6620, L101.9900, L3100.7950 #### [facility] [address] [facility] [place], [address] IG% 0.700 Normal 0.0-0.9 [facility] Comment on above: Result Comment: IG% - Immature Granulocytes (promyelocytes, myelocytes and metamyelocytes) > 1% indicates that a LEFT SHIFT is Present. Performed By: #### L 500.4050, L501.6710, L100.0500, L501.9520, L506.1000, L501.1400, L500.4100, L503.6620, L101.9900, L3100.7950 #### [facility] [address] [place], [address] Lymphocytes/100 WBC (Bld) 24.5 % Normal 19-41 [facility] Comment on above: Performed By: #### L 500.4050, L501.6710, L100.0500, L501.9520, L506.1000, L501.1400, L500.4100, L503.6620, L101.9900, L3100.7950 #### [facility] [address] [place], [address] MCH (RBC) [Entitic mass] 31.0 pg Normal 27.0-32.0 [facility] Comment on above: Performed By: #### L 500.4050, L501.6710, L100.0500, L501.9520, L506.1000, L501.1400, L500.4100, L503.6620, L101.9900, L3100.7950 #### [facility] [address] [facility] [place], [address] MCHC (RBC) [Mass/Vol] 34.7 g/dL Normal 32-36 [facility] Comment on above: Performed By: #### L 500.4050, L501.6710, L100.0500, L501.9520, L506.1000, L501.1400, L500.4100, L503.6620, L101.9900, L3100.7950 #### [facility] [address] [place], [address] MCV (RBC) [Entitic vol] 89.4 fL Normal 80-94 [facility] Comment on above: Performed By: #### L 500.4050, L501.6710, L100.0500, L501.9520, L506.1000, L501.1400, L500.4100, L503.6620, L101.9900, L3100.7950 #### [facility] [address] [place], [address] Monocytes/100 WBC (Bld) 11.9 % High 0-10 [facility] Comment on above: Performed By: #### L 500.4050, L501.6710, L100.0500, L501.9520, L506.1000, L501.1400, L500.4100, L503.6620, L101.9900, L3100.7950 #### [facility] [address] [place], [address] (812 Neutrophils/100 WBC (Bld) 59.3 % Normal 47-70 [facility] Comment on above: Performed By: #### L 500.4050, L501.6710, L100.0500, L501.9520, L506.1000, L501.1400, L500.4100, L503.6620, L101.9900, L3100.7950 #### [facility] [address] [facility] [place], [address] (126 Nucleated RBC (Bld) [#/Vol] 0 10*3/uL Normal 0-5 [facility] Comment on above: Performed By: #### L 500.4050, L501.6710, L100.0500, L501.9520, L506.1000, L501.1400, L500.4100, L503.6620, L101.9900, L3100.7950 #### [facility] [address] [facility] [place], [address] (549 Platelet mean volume (Bld) [Entitic vol] 9.3 fL Normal 6.2-12.0 [facility] Comment on above: Performed By: #### L 500.4050, L501.6710, L100.0500, L501.9520, L506.1000, L501.1400, L500.4100, L503.6620, L101.9900, L3100.7950 #### [facility] [address] [facility] [place], [address] (448 Platelets (Bld) [#/Vol] 264 10*3/uL Normal 150-450 [facility] Comment on above: Performed By: #### L 500.4050, L501.6710, L100.0500, L501.9520, L506.1000, L501.1400, L500.4100, L503.6620, L101.9900, L3100.7950 #### [facility] [address] [place], [address] RBC (Bld) [#/Vol] 4.71 10*6/uL Normal 4.6-6.2 [facility] Comment on above: Performed By: #### L 500.4050, L501.6710, L100.0500, L501.9520, L506.1000, L501.1400, L500.4100, L503.6620, L101.9900, L3100.7950 #### [facility] [address] [facility] [place], [address] (810 RDW SD 42.8 fl Normal 35.1-43.9 [facility] Comment on above: Performed By: #### L 500.4050, L501.6710, L100.0500, L501.9520, L506.1000, L501.1400, L500.4100, L503.6620, L101.9900, L3100.7950 #### [facility] [address] [place], [address] WBC (Bld) [#/Vol] 7.0 10*3/uL Normal 4.4-11.0 [facility] Comment on above: Performed By: #### L 500.4050, L501.6710, L100.0500, L501.9520, L506.1000, L501.1400, L500.4100, L503.6620, L101.9900, L3100.7950 #### [facility] [address] [place], [place], [id number] (703 Chest PA and Lateralon 09-19 Chest PA and Lateral [facility] [address] [place], [place] [id number] (963) Chest PA and Lateral MR#: [id number] Acct: [id number] Name: EMIL TRONCOSO Rep #: [id number] : 1955 M 69 From: Delfino Rivas MD PCP: Dr. Yaz Zepeda MD Status: PRE [facility] [place] Study: Chest PA and Lateral Date of Exam: 09/19/24 Exam# [id number] Ordering Dr: Will Vences NP [employer] OPERATOR-C PROCEDURE: CHEST PA AND LATERAL 09/19/2024 REASON FOR EXAM: PRE-PROCEDURE DIAGNOSTIC TECHNIQUE: Frontal and lateral views of the chest. COMPARISON: 05/27/2022 FINDINGS: The lungs appear clear. The cardiac and mediastinal contours appear within limits. RAD/Chest PA and Lateral IMPRESSION: No evidence of acute disease. Reading Location: [facility] CC: [employer] OPERATOR-C Will Vences; Dr. Yaz Zepeda MD Crew Team Member: Signed Normal [facility] Eosinophil percentageOrdered By: Will Vences on 09-19-2024 Eosinophils/100 WBC (Bld) 2.7 % 0-5 [facility] Immature granulocytes/100 WB C Auto (Bld)Ordered By: Will Vences on 09-19-2024 Immature granulocytes/100 WBC (Bld) 0.700 % 0.0-0.9 [facility] Comment on above: IG% - Immature Granu locytes (promyelocytes, myelocytes and metamyelocytes) > 1% indicates that a LEFT SHIFT is Present. International normalized rat io (INR) calculationOrdered By: Will Vences on 09-19-2024 INR Coag (Bld) [Relative time] 1.0 {INR} [facility] Monocyte percentageOrdered B y: Will Vences on 09-19-2024 Monocytes/100 WBC (Bld) 11.9 % High 0-10 [facility] Neutrophil percentageOrdered By: Will Vences on 09-19-2024 Neutrophils/100 WBC (Bld) 59.3 % 47-70 [facility] Nucleated red blood cell per centageOrdered By: Will Vences on 09-19-2024 Nucleated RBC/100 WBC (Bld) [Ratio] 0 % 0-5 [facility] Prothrombin Time w/INRon INR Coag (PPP) [Relative time] 1.0 {INR} Normal [facility] Comment on above: Performed By: #### L 500.4050, L501.6710, L100.0500, L501.9520, L506.1000, L501.1400, L500.4100, L503.6620, L101.9900, L3100.7950 #### [facility] [address] [facility] [place], [address] PT Coag (PPP) [Time] 13.6 s Normal 11.7-14.9 [facility] Comment on above: Performed By: #### L 500.4050, L501.6710, L100.0500, L501.9520, L506.1000, L501.1400, L500.4100, L503.6620, L101.9900, L3100.7950 #### [facility] [address] [place], [place], [id number] Prothrombin timeOrdered By: Will Vences on 09-19-2024 PT Coag (PPP) [Time] 13.6 s 11.7-14.9 [facility] Cardiovascular stress test r eportOrdered By: Oanh Mena on 09-08-2024 Study report [facility] [address] [place] [address] MR#: [id number] Acct: [id number] Name: EMIL TRONCOSO Rep #: [id number] : 1955 69 From: Oanh Mena MD Primary Care: Dr. Yaz Zepeda MD Statu s: REG CLI Referring Dr: Will Vences NP [employer] OPERATOR-C Sex: M C Stress Test Report Date: 09/08/2024 Procedure: Pharmacologic stress nuclear imaging study Indications: Chest pain Consent: Per the patient Procedure: The patient underwent pharmacologic (Regadenoson 0.4mg ) evaluation with a peak heart rate of 76 beats per minute (51%predicted maximal heart rate) and a peak blood pressure of 132/70 mmHg. The baseline ECG demonstrated sinus rhythm. The peak pharmacologic ECG showed no ischemic changes. There were no cardiac dysrhythmias pretest, during pharmacologic infusion, or recovery. There was no complaint of chest discomfort during pharmacologic infusion or recovery. The patient was injected with 11.3 millicuries of technetium 99m Cardiolite and subsequently rest SPECT Cardiolite nuclear imaging was obtained in the horizontal long, vertical long, and short axis views. The patient underwent pharmacologic (Regadenoson) evaluation. The patient was injected with 32.6 millicuries of technetium 99m Cardiolite and subsequently stress SPECT Cardiolite nuclear imaging was obtained in the horizontal long, vertical long, and short axis views. A gated Cardiolite study at peak stress was obtained. The examination was stopped secondary to completion of protocol. Rest and stress SPECT Cardiolite nuclear imaging status post realignment, and normalization demonstrate a moderate-sized reversible perfusion defect of the inferior wall of moderate intensity suggesting ischemia. Mild basal lateral reversible defect of mild intensity there is end systolic thickening and brightening. The gated Cardiolite study demonstrates myocardial thickening and inward wall motion. The reported LVEF is 74%. Impression: 1. Pharmacologic (Regadenoson) evaluation 2. Peak pharmacologic ECG with no ischemic changes. 3. There were no cardiac dysrhythmias pretest, during pharmacologic infusion, or recovery. 5. Moderate size reversible perfusion defect of the inferior wall and small reversible perfusion defect of the basal lateral wall suggestive of ischemia. 6. The gated Cardiolite study reports an LVEF of 74%. This note was generated with Pagevamp[employer] software. It may contain incorrectwords, spelling, and punctuation that were not noted in checking the note beforesigning. 09/08/24 1528 Date _ Oanh Mena MD CC: SARA Vences; Dr. Yaz Zepeda MD ~ Date Dictated: 09/08/241524 Date Transcribed: 09/08/241524 Crew Team Member: STEPHAN Signed [facility] Work Phone: Stress Reporton 09-08-2024 Stress Report [facility] [address] [address] [place] [address] MR#: [id number] Acct: [id number] Name: EMIL TRONCOSO Rep #: [id number] : 1955 69 From: Oanh Mena MD Primary Care: Dr. Yaz Zepeda MD Status: REG CLI Referring Dr: Will Vences NP [employer] OPERATOR-C Sex: M C Stress Test Report Date: 09/08/2024 Procedure: Pharmacologic stress nuclear imaging study Indications: Chest pain Consent: Per the patient Procedure: The patient underwent pharmacologic (Regadenoson 0.4mg ) evaluation with a peak heart rate of 76 beats per minute (51%predicted maximal heart rate) and a peak blood pressure of 132/70 mmHg. The baseline ECG demonstrated sinus rhythm. The peak pharmacologic ECG showed no ischemic changes. There were no cardiac dysrhythmias pretest, during pharmacologic infusion, or recovery. There was no complaint of chest discomfort during pharmacologic infusion or recovery. The patient was injected with 11.3 millicuries of technetium 99m Cardiolite and subsequently rest SPECT Cardiolite nuclear imaging was obtained in the horizontal long, vertical long, and short axis views. The patient underwent pharmacologic (Regadenoson) evaluation. The patient was injected with 32.6 millicuries of technetium 99m Cardiolite and subsequently stress SPECT Cardiolite nuclear imaging was obtained in the horizontal long, vertical long, and short axis views. A gated Cardiolite study at peak stress was obtained. The examination was stopped secondary to completion of protocol. Rest and stress SPECT Cardiolite nuclear imaging status post realignment, and normalization demonstrate a moderate-sized reversible perfusion defect of the inferior wall of moderate intensity suggesting ischemia. Mild basal lateral reversible defect of mild intensity there is end systolic thickening and brightening. The gated Cardiolite study demonstrates myocardial thickening and inward wall motion. The reported LVEF is 74%. Impression: 1. Pharmacologic (Regadenoson) evaluation 2. Peak pharmacologic ECG with no ischemic changes. 3. There were no cardiac dysrhythmias pretest, during pharmacologic infusion, or recovery. 5. Moderate size reversible perfusion defect of the inferior wall and small reversible perfusion defect of the basal lateral wall suggestive of ischemia. 6. The gated Cardiolite study reports an LVEF of 74%. This note was generated with Pagevampation software. It may contain incorrect words, spelling, and punctuation that were not noted in checking the note before signing. 09/08/24 1528 Date Oanh Mena MD CC: [employer] OPERATOR-C Will Vences; Dr. Yaz Zepeda MD Date Dictated: 09/08/241524 Date Transcribed: 09/08/241524 Crew Team Member: STEPHAN Signed Normal [facility] 12 Lead EKG performed by [facility] on 08-17-2024 12 Lead EKG performed by [facility] [address] [place] [address] 12 Lead EKG performed by [facility] 08/17/24 1026 MR#: [id number] Acct: [id number] Name: EMIL TRONCOSO Rep #: [id number] : 1955 69 From: Will Vences NP [employer] OPERATOR-C Attending Dr: Will Vences NP-C Status: DEP AMB Ordering Dr: Will Vences NP [employer] OPERATOR-C Date: 08/17/24 [place] [facility] [place] Sex: M C Admitted: [facility]/12 Lead EKG performed by [facility] ECG Report Interpretation Si nus Rhythm -Incomplete right bundle branch block. ABNORMAL Electronically signed on 08/23/2024 at 14:57 by Geovanny Aldridge Software Version [id number] 08/23/24 1459 Date Will Vences [employer] OPERATOR [employer] OPERATOR-C CC: Dr. Yaz Zepeda MD Date Dictated: 08/17/241025 Date Transcribed: 08/17/241025 Crew Team Member: LOLAR Signed Normal [facility] Absolute lymphocyte countOrd ered By: Will Vences on 08-17-2024 Lymphocytes Auto (Unsp spec) [#/Vol] 1.83 10*3/uL 0.83-4.51 [facility] Absolute neutrophil countOrd ered By: Will Vences on 08-17-2024 Neutrophils (Bld) [#/Vol] 6.0 10*3/uL 2.0-7.7 [facility] Anion gap in Serum or Plasma Ordered By: Will Vences on 08-17-2024 Anion gap [Moles/Vol] 12 mmol/L 5- [facility] Automated lymphocyte count a s percentage of total leukocytesOrdered By: Will Vences on 08-17-2024 Lymphocytes/100 WBC Auto (Unsp spec) 20.4 % [facility] BUN/creatinine ratioOrdered By: Will Vences on 08-17-2024 Urea nitrogen/Creatinine [Mass ratio] 19.5 mg/mg - [facility] Basic Metabolic Profile (BMP )on 08-17-2024 BUN/CRE 19.5 RATIO Normal - [facility] Comment on above: Performed By: #### L 500.4050, L501.6710, L100.0500, L501.9520, L506.1000, L501.1400, L500.4100, L503.6620, L101.9900, L3100.7950 #### [facility] [address] [place], [address] Calcium [Mass/Vol] 9.6 mg/dL Normal 7.6-11.0 [facility] Comment on above: Performed By: #### L 500.4050, L501.6710, L100.0500, L501.9520, L506.1000, L501.1400, L500.4100, L503.6620, L101.9900, L3100.7950 #### [facility] [address] [place], [address] Chloride [Moles/Vol] 102 mmol/L Normal 98-108 [facility] Comment on above: Performed By: #### L 500.4050, L501.6710, L100.0500, L501.9520, L506.1000, L501.1400, L500.4100, L503.6620, L101.9900, L3100.7950 #### [facility] [address] [place], [address] CO2 [Moles/Vol] 25.0 mmol/L Normal 21.0-32.0 [facility] Comment on above: Performed By: #### L 500.4050, L501.6710, L100.0500, L501.9520, L506.1000, L501.1400, L500.4100, L503.6620, L101.9900, L3100.7950 #### [facility] [address] [place], [address] Creatinine [Mass/Vol] 0.62 mg/dL Low 0.70-1.20 [facility] Comment on above: Performed By: #### L 500.4050, L501.6710, L100.0500, L501.9520, L506.1000, L501.1400, L500.4100, L503.6620, L101.9900, L3100.7950 #### [facility] [address] [place], [address] GAP 12 Normal 5-15 [facility] Comment on above: Performed By: #### L 500.4050, L501.6710, L100.0500, L501.9520, L506.1000, L501.1400, L500.4100, L503.6620, L101.9900, L3100.7950 #### [facility] [address] [place], [address] GFR/1.73 sq M.predicted among non-blacks MDRD (S/P/Bld) [Vol rate/Area] 102 mL/min/{1.73_m2} Normal >60 [facility] Comment on above: Result Comment: mL/m in/1.73m2 CKD-EPI Creatinine Equation (2020) Performed By: #### L 500.4050, L501.6710, L100.0500, L501.9520, L506.1000, L501.1400, L500.4100, L503.6620, L101.9900, L3100.7950 #### [facility] [address] [place], [address] Glucose [Mass/Vol] 107 mg/dL High 70-99 [facility] Comment on above: Performed By: #### L 500.4050, L501.6710, L100.0500, L501.9520, L506.1000, L501.1400, L500.4100, L503.6620, L101.9900, L3100.7950 #### [facility] [address] [place], [address] Potassium [Moles/Vol] 4.2 mmol/L Normal 3.3-5.1 [facility] Comment on above: Performed By: #### L 500.4050, L501.6710, L100.0500, L501.9520, L506.1000, L501.1400, L500.4100, L503.6620, L101.9900, L3100.7950 #### [facility] [address] [place], [address] Sodium [Moles/Vol] 139 mmol/L Normal 133-145 [facility] Comment on above: Performed By: #### L 500.4050, L501.6710, L100.0500, L501.9520, L506.1000, L501.1400, L500.4100, L503.6620, L101.9900, L3100.7950 #### [facility] [address] [place], [address] Urea nitrogen [Mass/Vol] 12 mg/dL Normal 4-19 [facility] Comment on above: Performed By: #### L 500.4050, L501.6710, L100.0500, L501.9520, L506.1000, L501.1400, L500.4100, L503.6620, L101.9900, L3100.7950 #### [facility] [address] [place], [address] Basophil percentageOrdered B y: Will Vences on 08-17-2024 Basophils/100 WBC (Bld) 0.7 % 0-1 [facility] CBC W/Diff, Automatedon 04-0 Absolute Lymph 1.83 X10 3/uL Normal 0.83-4.51 [facility] Comment on above: Performed By: #### L 500.4050, L501.6710, L100.0500, L501.9520, L506.1000, L501.1400, L500.4100, L503.6620, L101.9900, L3100.7950 #### [facility] [address] [facility] [place], [address] Absolute Neut 6.0 X10 3/uL Normal 2.0-7.7 [facility] Comment on above: Performed By: #### L 500.4050, L501.6710, L100.0500, L501.9520, L506.1000, L501.1400, L500.4100, L503.6620, L101.9900, L3100.7950 #### [facility] [address] [place], [address] Basophils/100 WBC (Bld) 0.7 % Normal 0-1 [facility] Comment on above: Performed By: #### L 500.4050, L501.6710, L100.0500, L501.9520, L506.1000, L501.1400, L500.4100, L503.6620, L101.9900, L3100.7950 #### [facility] [address] [place], [address] Eosinophils/100 WBC (Bld) 2.1 % Normal 0-5 [facility] Comment on above: Performed By: #### L 500.4050, L501.6710, L100.0500, L501.9520, L506.1000, L501.1400, L500.4100, L503.6620, L101.9900, L3100.7950 #### [facility] [address] [place], [address] (848) Erythrocyte distribution width (RBC) [Ratio] 13.3 % Normal 11.6-14.6 [facility] Comment on above: Performed By: #### L 500.4050, L501.6710, L100.0500, L501.9520, L506.1000, L501.1400, L500.4100, L503.6620, L101.9900, L3100.7950 #### [facility] [address] [place], [address] (950) Hematocrit (Bld) [Volume fraction] 44.5 % Normal 40-54 [facility] Comment on above: Performed By: #### L 500.4050, L501.6710, L100.0500, L501.9520, L506.1000, L501.1400, L500.4100, L503.6620, L101.9900, L3100.7950 #### [facility] [address] [place], [address] (237) Hemoglobin (Bld) [Mass/Vol] 15.2 g/dL Normal 13.0-16.5 [facility] Comment on above: Performed By: #### L 500.4050, L501.6710, L100.0500, L501.9520, L506.1000, L501.1400, L500.4100, L503.6620, L101.9900, L3100.7950 #### [facility] [address] [facility] [place], [address] (188) IG% 0.900 Normal 0.0-0.9 [facility] Comment on above: Result Comment: IG% - Immature Granulocytes (promyelocytes, myelocytes and metamyelocytes) > 1% indicates that a LEFT SHIFT is Present. Performed By: #### L 500.4050, L501.6710, L100.0500, L501.9520, L506.1000, L501.1400, L500.4100, L503.6620, L101.9900, L3100.7950 #### [facility] [address] [facility] [place], [address] Lymphocytes/100 WBC (Bld) 20.4 % Normal 19-41 [facility] Comment on above: Performed By: #### L 500.4050, L501.6710, L100.0500, L501.9520, L506.1000, L501.1400, L500.4100, L503.6620, L101.9900, L3100.7950 #### [facility] [address] [facility] [place], [address] MCH (RBC) [Entitic mass] 30.6 pg Normal 27.0-32.0 [facility] Comment on above: Performed By: #### L 500.4050, L501.6710, L100.0500, L501.9520, L506.1000, L501.1400, L500.4100, L503.6620, L101.9900, L3100.7950 #### [facility] [address] [facility] [place], [address] MCHC (RBC) [Mass/Vol] 34.2 g/dL Normal 32-36 [facility] Comment on above: Performed By: #### L 500.4050, L501.6710, L100.0500, L501.9520, L506.1000, L501.1400, L500.4100, L503.6620, L101.9900, L3100.7950 #### [facility] [address] [facility] [place], [address] MCV (RBC) [Entitic vol] 89.7 fL Normal 80-94 [facility] Comment on above: Performed By: #### L 500.4050, L501.6710, L100.0500, L501.9520, L506.1000, L501.1400, L500.4100, L503.6620, L101.9900, L3100.7950 #### [facility] [address] [place], [address] Monocytes/100 WBC (Bld) 9.0 % Normal 0-10 [facility] Comment on above: Performed By: #### L 500.4050, L501.6710, L100.0500, L501.9520, L506.1000, L501.1400, L500.4100, L503.6620, L101.9900, L3100.7950 #### [facility] [address] [facility] [place], [address] Neutrophils/100 WBC (Bld) 66.9 % Normal 47-70 [facility] Comment on above: Performed By: #### L 500.4050, L501.6710, L100.0500, L501.9520, L506.1000, L501.1400, L500.4100, L503.6620, L101.9900, L3100.7950 #### [facility] [address] [facility] [place], [address] Nucleated RBC (Bld) [#/Vol] 0 10*3/uL Normal 0-5 [facility] Comment on above: Performed By: #### L 500.4050, L501.6710, L100.0500, L501.9520, L506.1000, L501.1400, L500.4100, L503.6620, L101.9900, L3100.7950 #### [facility] [address] [facility] [place], [address] Platelet mean volume (Bld) [Entitic vol] 9.8 fL Normal 6.2-12.0 [facility] Comment on above: Performed By: #### L 500.4050, L501.6710, L100.0500, L501.9520, L506.1000, L501.1400, L500.4100, L503.6620, L101.9900, L3100.7950 #### [facility] [address] [place], [address] Platelets (Bld) [#/Vol] 261 10*3/uL Normal 150-450 [facility] Comment on above: Performed By: #### L 500.4050, L501.6710, L100.0500, L501.9520, L506.1000, L501.1400, L500.4100, L503.6620, L101.9900, L3100.7950 #### [facility] [address] [place], [address] RBC (Bld) [#/Vol] 4.96 10*6/uL Normal 4.6-6.2 [facility] Comment on above: Performed By: #### L 500.4050, L501.6710, L100.0500, L501.9520, L506.1000, L501.1400, L500.4100, L503.6620, L101.9900, L3100.7950 #### [facility] [address] [place], [address] RDW SD 43.8 fl Normal 35.1-43.9 [facility] Comment on above: Performed By: #### L 500.4050, L501.6710, L100.0500, L501.9520, L506.1000, L501.1400, L500.4100, L503.6620, L101.9900, L3100.7950 #### [facility] [address] [place], [address] WBC (Bld) [#/Vol] 9.0 10*3/uL Normal 4.4-11.0 [facility] Comment on above: Performed By: #### L 500.4050, L501.6710, L100.0500, L501.9520, L506.1000, L501.1400, L500.4100, L503.6620, L101.9900, L3100.7950 #### [facility] [address] [place], [address] Carbon dioxide, total [Moles /volume] in Central venous bloodOrdered By: Will Vences on 08-17-2024 CO2 [Moles/Vol] 25.0 mmol/L 21.0-32.0 [facility] Cardiology Visit Reporton Cardiology Visit Report [facility] [address] [place] [address] OFFICE VISIT Date of Service: 08/17/24 MR#: [id number] Acct: [id number] Name: EMIL TRONCOSO Rep #: [id number] : 1955 Provider: SARA espinoza Age/Sex: 69/M Location: [facility] Status: Signed HPI HPI History of Present Illness Details: This is a 69-year-old gentleman with a history of CAD, a non-CAD related cardiomyopathy, hyperlipidemia, and hypertension. He follows with Dr. Stephens for skin cancer and has completed chemotherapy cream. He acknowledges random, left-sided chest discomfort. This can last from all day to half an hour. This is mostly noted at rest and denies it with activity. He acknowledges lower extremity edema with left worse than right. He acknowledges occasional shortness of breath and when he feels that he cannot get breath in. He acknowledges palpitations. He denies shortness of breath at rest, orthopnea, cough, or PND. He acknowledges dizziness, lightheadedness, weakness, fatigue, and headaches. He states his symptoms have been gradually worsened for 2.5 months, but worsening over the last month. Chest CT with PCP was negative for PE and no comment regarding aortic aneurysm. Intake Vital Signs 10/29/23 09:45 08/17/24 10:27 Height 5 ft 9 in 5 ft 9 in Weight: 174 lb BMI 25.7 BP 127/93 H Blood Pressure Location Lt brachial Position Sitting Respiration 18 Pulse 83 Pulse Source Monitor Pulse Oximetry (%) 98 Intake Visit Reasons: Early fu/having many symptoms [employer] Required: No Is patient in pain?: No Allergies bee venom protein (honey bee) Allergy (Verified 08/17/24 13:02) Anaphylaxis cefadroxil hydrate (From Duricef) Allergy (Verified 08/17/24 13:02) Rash niacin (From Niaspan Extended-Release) Allergy (Verified 08/17/24 13:02) Rash azatadine Adverse Reaction (Verified 08/17/24 13:02) Other pseudoephedrine Adverse Reaction (Verified 08/17/24 13:02) Other Medications ???Medication ???Instructions ???Recorded ???Confirmed ???Type aspirin 81 mg chewable tablet 81 mg PO QHS heart health 08/08/13 08/17/24 History pantoprazole 40 mg tablet,delayed 40 mg PO DAILY reflux 08/08/13 History release albuterol sulfate 90 mcg/actuation 2 puff inhalation Q4H PRN PRN So b 04/01/16 08/17/24 History aerosol inhaler /Or Wheezing apixaban 5 mg tablet (Eliquis) 5 mg PO BID blood thinner 10/01/18 08/17/24 History nitroglycerin 0.4 mg sublingual 0.4 mg sublingual Q5-15M chest shayna n 10/26/18 08/17/24 History tablet verapamil 180 mg 24 hr 180 mg PO QHS blood pressure 10/2608/17/24 History capsule,extended release multivitamin with minerals 1 tab PO DAILY supplement 05/06/19 08/17/24 History epinephrine 0.3 mg/0.3 mL 0.3 mg IM ONCE PRN ALLERGY 10/31/ 0 08/17/24 History injection, auto-injector meclizine 25 mg tablet 25 mg PO TID PRN PRN dizziness, 10/29/23 Rx vertigo #30 tabs tizanidine 4 mg capsule 4 mg PO Q8H PRN MUSCLE RELAXANT 08/17/24 History rosuvastatin 10 mg tablet 5 mg PO QHS cholesterol 04/06/23 0 08/17/24 History acetaminophen 325 mg tablet 650 mg (2 x 325 mg) PO Q4H PRN PRN 04/09/23 08/17/24 Rx Pain 1-10 Or Fever #0 tabs Ejection fraction %: 65 Have you fallen in the past year?: No PFSH Medical History Wears dentures History of diverticulitis CAD (coronary artery disease) Right inguinal hernia Abnormal nuclear stress test Atherosclerotic heart disease of [place] coronary artery without angina pectoris Wears glasses Wears partial dentures Cancer Depression Anxiety Abrasion Arthritis Fatty liver Easy bruising Excessive bleeding Restless legs Vertigo Gastric reflux Sleep apnea CPAP (continuous positive airway pressure) dependence Shortness of breath on exertion Non-smoker History of edema Leg cramps History of echocardiogram Hypertension History of heart attack Chest pain History of stress test Cardiology follow-up encounter Abdominal pain Vertigo Squamous cell carcinoma Elevated troponin I level (2005) Nonobstructive atherosclerosis of coronary artery Recurrent deep vein thrombosis (DVT) Nonischemic cardiomyopathy Obstructive sleep apnea Gastroesophageal reflux disease Talamantes's esophagus Paroxysmal supraventricular tachycardia Osteoarthritis Insomnia Carotid artery occlusion without infarction Diverticulitis Type 2 diabetes mellitus without complication Asthma Myalgia Facial paresthesia (07/2018) Pericarditis Migraines History of GI bleed Hyperlipidemia Essential hypertension GI bleed Surgical History History of robot-assisted repair of right inguinal her (more content not included)... Normal [facility] Chloride assayOrdered By: Ana María Vences on 08-17-2024 Chloride [Moles/Vol] 102 mmol/L 98-108 [facility] Eosinophil percentageOrdered By: Will Vences on 08-17-2024 Eosinophils/100 WBC (Bld) 2.1 % 0-5 [facility] Erythrocyte distribution wid th (RBC) [Ratio]Ordered By: Will Vences on 08-17-2024 Erythrocyte distribution width (RBC) [Entitic vol] 43.8 fL 35.1-43.9 [facility] Erythrocyte distribution wid th ratioOrdered By: Will Vences on 08-17-2024 Erythrocyte distribution width (RBC) [Ratio] 13.3 % 11.6-14.6 [facility] Erythrocyte distribution wid th standard deviationOrdered By: Will Vences on 08-17-2024 Erythrocyte distribution width (RBC) [Ratio] 43.8 fl 35.1-43.9 [facility] GFR/1.73 sq M.predicted radha g non-blacks MDRD (S/P/Bld) [Vol rate/Area]Ordered By: Will Vences on 08-17-2024 Estimated GFR (MDRD) Non-Af Amer [address] [facility] Comment on above: mL/min/1.73m2 CKD-EP I Creatinine Equation (2020) Glomerular filtration rate ( GFR) estimation/1.73 sq m using serum, plasma, or whole bOrdered By: Will Vences on 08-17-2024 GFR/1.73 sq M.predicted among non-blacks MDRD (S/P/Bld) [Vol rate/Area] 102 mL/min/{1.73_m2} >60 [facility] Comment on above: mL/min/1.73m2 CKD-EP I Creatinine Equation (2020) Hematocrit Auto (Bld) [Volum e fraction]Ordered By: Will Vences on 08-17-2024 Hematocrit (Bld) [Volume fraction] 44.5 % 40-54 [facility] Hemoglobin measurementOrdere d By: Will Vences on 08-17-2024 Hemoglobin (Bld) [Mass/Vol] 15.2 g/dL 13.0-16.5 [facility] Immature granulocytes/100 WB C Auto (Bld)Ordered By: Will Vences on 08-17-2024 Immature granulocytes/100 WBC (Bld) 0.900 % 0.0-0.9 [facility] Comment on above: IG% - Immature Granu locytes (promyelocytes, myelocytes and metamyelocytes) > 1% indicates that a LEFT SHIFT is Present. L503.7505on 08-17-2024 proBNP < 36 Normal <=900 [facility] Comment on above: Result Comment: Hear t Failure Unlikely: < 300 pg/mL Heart Failure Likely < 50 Years: > 450 pg/mL 50-75 Years: > 900 pg/mL >75 Years: > 1800 pg/mL Performed By: #### L 500.4050, L501.6710, L100.0500, L501.9520, L506.1000, L501.1400, L500.4100, L503.6620, L101.9900, L3100.7950 #### [facility] [address] [place], [address] Lymphocytes Auto (Unsp spec) [#/Vol]Ordered By: Will Vences on 08-17-2024 Lymphocytes (Bld) [#/Vol] 1.83 10*3/uL 0.83-4.51 [facility] Lymphocytes/100 WBC Auto (Un sp spec)Ordered By: Will Vences on 08-17-2024 Lymphocytes/100 WBC (Bld) 20.4 % 19-41 [facility] MCV (mean corpuscular volume ) determinationOrdered By: Will Vences on 08-17-2024 MCV (RBC) [Entitic vol] 89.7 fL 80-94 [facility] Magnesiumon 08-17-2024 Magnesium [Mass/Vol] 2.0 mg/dL Normal 1.5-2.2 [facility] Comment on above: Performed By: #### L 500.4050, L501.6710, L100.0500, L501.9520, L506.1000, L501.1400, L500.4100, L503.6620, L101.9900, L3100.7950 #### [facility] [address] [place] [address]. [place], [place], [address] Magnesium (Unsp spec) [Mass/ Vol]Ordered By: Will Vences on 08-17-2024 Magnesium [Mass/Vol] 2.0 mg/dL 1.5-2.2 [facility] Magnesium measurement (mass/ volume)Ordered By: Will Vences on 08-17-2024 Magnesium (Unsp spec) [Mass/Vol] 2.0 mg/dL 1.5-2.2 [facility] Mean corpuscular hemoglobin (MCH) determinationOrdered By: Will Vences on 08-17-2024 MCH (RBC) [Entitic mass] 30.6 pg 27.0-32.0 [facility] Mean corpuscular hemoglobin concentration (MCHC) determinationOrdered By: Will Vences on 08-17-2024 MCHC (RBC) [Mass/Vol] 34.2 g/dL 32-36 [facility] Mean platelet volume determi nationOrdered By: Will Vences on 08-17-2024 Platelet mean volume (Bld) [Entitic vol] 9.8 fL 6.2-12.0 [facility] Monocyte percentageOrdered B y: Will Vences on 08-17-2024 Monocytes/100 WBC (Bld) 9.0 % 0-10 [facility] Natriuretic peptide.B prohor dick N-Terminal [Mass/Vol]Ordered By: Will Vences on 08-17-2024 [id number] Natriuretic Peptide II < 36 pg/mL <900 [facility] Comment on above: Heart Failure Unlike ly: < 300 pg/mLHeart Failure Likely< 50 Years: > 450 pg/mL50-75 Years: > 900 pg/mL>75 Years: > 1800 pg/mL Natriuretic peptide.B prohor dick N-Terminal [Mass/volume] in Serum or PlasmaOrdered By: Will Vences on 08-17-2024 Natriuretic peptide.B prohormone N-Terminal [Mass/Vol] < 36 pg/mL <900 [facility] Comment on above: Heart Failure Unlike ly: < 300 pg/mLHeart Failure Likely< 50 Years: > 450 pg/mL50-75 Years: > 900 pg/mL>75 Years: > 1800 pg/mL Neutrophil percentageOrdered By: Will Vences on 08-17-2024 Neutrophils/100 WBC (Bld) 66.9 % 47-70 [facility] Nucleated red blood cell per centageOrdered By: Will Vences on 08-17-2024 Nucleated RBC/100 WBC (Bld) [Ratio] 0 % 0-5 [facility] Platelet countOrdered By: Ana María Vences on 08-17-2024 Platelets (Bld) [#/Vol] 261 10*3/uL 150-450 [facility] Potassium (Unsp spec) [Mass/ Vol]Ordered By: Will Vences on 08-17-2024 Potassium [Moles/Vol] 4.2 mmol/L 3.3-5.1 [facility] Potassium measurement (mass/ volume)Ordered By: Will Vences on 08-17-2024 Potassium (Unsp spec) [Mass/Vol] 4.2 mmol/L 3.3-5.1 [facility] RBC Auto (Bld) [#/Vol]Ordere d By: Will Vences on 08-17-2024 RBC (Bld) [#/Vol] 4.96 10*6/uL 4.6-6.2 [facility] Serum creatinine measurement (mass/volume)Ordered By: Will Vences on 08-17-2024 Creatinine [Mass/Vol] 0.62 mg/dL Low 0.70-1.20 [facility] Serum glucose measurement (m ass/volume)Ordered By: Will Vences on 08-17-2024 Glucose [Mass/Vol] 107 mg/dL High 70-99 [facility] Serum or plasma calcium shayne urement (mass/volume)Ordered By: Will Vences on 08-17-2024 Calcium [Mass/Vol] 9.6 mg/dL 7.6-11.0 [facility] Serum or plasma urea nitroge n measurement (mass/volume)Ordered By: Will Vences on 08-17-2024 Urea nitrogen [Mass/Vol] 12 mg/dL 4-19 [facility] Sodium levelOrdered By: Will Vences on 08-17-2024 Sodium [Moles/Vol] 139 mmol/L 133-145 [facility] T4 Free Directon 08-17-2024 T4 FREE DIRECT 0.90 ng/dL Normal 0.76-1.46 [facility] Comment on above: Performed By: #### L 500.4050, L501.6710, L100.0500, L501.9520, L506.1000, L501.1400, L500.4100, L503.6620, L101.9900, L3100.7950 #### [facility] [employer] [address] [place], [address] T4 freeOrdered By: Will Vences on 08-17-2024 Free T4 [Mass/Vol] 0.90 ng/dL 0.76-1.46 [facility] TSH DL <= 0.005 mIU/L QnOrde red By: Will Vences on 08-17-2024 Thyroid Stimulating Hormone (TSH) 2.890 uIU/mL 0.300-4.[address] [facility] TSH Qn 2.890 uIU/mL 0.300-4.[address] [facility] Thyroid Stim Hormone (TSH)on 08-17-2024 TSH 2.890 uIU/mL Normal 0.300-4.[address] [facility] Comment on above: Performed By: #### L 500.4050, L501.6710, L100.0500, L501.9520, L506.1000, L501.1400, L500.4100, L503.6620, L101.9900, L3100.7950 #### [facility] [address] [facility] [place], [address] White blood cell (WBC) count Ordered By: Will Vences on 08-17-2024 WBC (Bld) [#/Vol] 9.0 10*3/uL 4.4-11.0 [facility] Chest WITH Contraston 2024 Chest WITH Contrast [facility] [address] [place] [address] Chest WITH Contrast MR#: [id number] Acct: [id number] Name: EMIL TRONCOSO Rep #: [id number] : 1955 M 69 From: Fortino Pritchett PCP: Dr. Yaz Zepeda MD Status: REG CLI Study: Chest WITH Contrast Date of Exam: 08/03/24 Exam# [id number] Ordering Dr: Yaz Zepeda MD PROCEDURE: CHEST WITH CONTRAST 08/03/2024 REASON FOR EXAM: CHEST PAIN SOB TECHNIQUE: Prone and supine chest CT with intravenous contrast, high resolution CT (HRCT) protocol. Coronal and Sagittal reconstruction series were provided. CONTRAST: Isovue 370 VOLUME: 100mL. One or more dose reduction techniques were used (e.g., Automated exposure control, adjustment of the mA and/or kV according to patient size, use of iterative reconstruction technique). RADIATION DOSE SUMMARY: CTDlvol: 29.27 mGy DLP: 444.50 mGycm COMPARISON: Chest x-ray of 05/27/2022. FINDINGS: The visualized upper abdomen shows no acute process. Colonic diverticulosis is seen at the visualized portion of the left colon. No evidence of pulmonary edema. No acute pneumonic process is seen. No pleural effusion or pneumothorax is evident. No pericardial effusion is seen. No evidence of pulmonary embolism. No adenopathy is seen. CT/Chest WITH Contrast IMPRESSION: No evidence of pulmonary embolism. Reading Location: [id number] CC: Dr. Yaz Zepeda MD Crew Team Member: Signed Normal [facility] Echo Complete W/ Contraston 06-22-2024 Echo Complete W/ Contrast [facility] [place] [address] Echo Complete W/ Contrast 06/22/24 1352 MR#: [id number] Acct: [id number] Name: EMIL TRONCOSO Rep #: [id number] : 1955 69 From: Geovanny Aldridge MD Attending Dr: Dr. Yaz Zepeda MD Status: REG CLI Ordering Dr: Yaz Zepeda MD Date: 06/22/24 Location: [facility] Sex: M C Admitted: Reason For Study Reason For Study: Edema, Murmur Procedure This was a 2D Doppler, Color Flow transthoracic echocardiogram. The study was technically difficult. Contrast injection was performed. Exam performed in department. Left Ventricle Normal LV size. Left ventricular systolic function is normal. The left ventricular ejection fraction is 65 %. Stage 1 diastolic dysfunction. No regional wall motion abnormalities noted. Right Ventricle Normal RV size. Normal systolic function. Atria Normal left atrium. Normal right atrium. Mitral Valve Mild focal mitral valve calcification, bileaflet. Tricuspid Valve Normal tricuspid valve. Mild (1+) tricuspid valve insufficiency. Pulmonary artery systolic pressure is 27 mmHg. Aortic Valve Trisinus/trileaflet aortic valve. Peak aortic valve gradient 26 mmHg. Mean aortic valve gradient 14 mmHg. Mild (1+) aortic valve insufficiency. Pulmonic Valve Normal pulmonic valve. Great Vessels Normal aortic root. The pulmonary artery is normal size. Normal inferior vena cava. Pericardium/Pleural No pericardial effusion. Medication 22 gauge I.V. with prn adaptor inserted into right arm. Diluted definity 1.5ml given slow IV push to enhance endocardial definition. MMode/2D Measurements Calculations LVIDd: 5.4 cm IVSd: 1.3 cm LVOT diam: 2.0 cm LVIDs: 3.5 cm LVPWd: 0.98 cm FS: 36.1 % LVOT area: 3.0 cm2 Ao root diam: 3.2 cm LAV(MOD-bp): 41.3 ml LVAd ap4: 41.2 cm2 LAV(MOD-bp) Indexed: 21.0 ml/m2 LVLd ap4: 9.2 cm LAV(MOD-sp2): 40.6 ml EDV(MOD-sp4): 148.9 ml LAV(MOD-sp4): 31.5 ml EDV(sp4-el): 156.6 ml LVAs ap4: 24.3 cm2 LVLs ap4: 7.6 cm ESV(MOD-sp4): 61.5 ml ESV(sp4-el): 65.6 ml EF(MOD-sp4): 58.7 % EF(sp4-el): 58.1 % SV(MOD-sp4): 87.4 ml SV(sp4-el): 90.9 ml LA A4 area: 12.2 cm2 SI(MOD-sp4): 44.3 ml/m2 LA dimension(2D): 3.6 cm RA A4 area: 9.5 cm2 Time Measurements MV dec time: 0.26 sec Doppler Measurements Calculations MV E max bimal: 67.8 cm/sec Lat Peak E' Bimal: 10.4 cm/sec Med Peak E' Bimal: 8.0 cm/sec MV A max bimal: 86.6 cm/sec E/E' lat: 6.5 E/E' med: 8.5 MV E/A: 0.78 MV V2 max: 95.1 cm/sec MV P1/2t max bimal: 77.6 cm/sec Ao V2 max: 256.5 cm/sec MV max P.6 mmHg MV P1/2t: 92.2 msec Ao max P.3 mmHg MV V2 mean: 45.8 cm/sec MV dec slope: 246.8 cm/sec2 Ao V2 mean: 173.4 cm/sec MV mean P.0 mmHg MVA(P1/2t): 2.4 cm2 Ao mean P.0 mmHg MV V2 VTI: 30.9 cm Ao V2 VTI: 56.8 cm MVA(VTI): 3.1 cm2 AV (velocity ratio): 0.57 KATIE(I,D): 1.7 cm2 KATIE(V,D): 1.8 cm2 AI max bimal: 454.4 cm/sec LV V1 max: 149.4 cm/sec SV(LVOT): 97.5 ml AI max P.9 mmHg LV V1 max P.9 mmHg LV V1 mean P.1 mmHg AI dec slope: 174.5 cm/sec2 LV V1 mean: 106.9 cm/sec AI P1/2t: 762.6 msec LV V1 VTI: 32.2 cm TR max bimal: 242.0 cm/sec TR max P.4 mmHg ECHO/Echo Complete W/ Contrast Interpretation Summary Normal LV size. Left ventricular systolic function is normal. The left ventricular ejection fraction is 65 %. Stage 1 diastolic dysfunction. Mean aortic valve gradient 14 mmHg. Mild (1+) aortic valve insufficiency. Contrast injection was performed. Ordering Physician: Yaz Zepeda Referring Physician: Yaz Zepeda Performed By: Aquiles Rodarte RCS 06/22/24 1529 Date Geovanny Aldridge MD CC: Dr. Yaz Zepeda MD Date Dictated: 06/22/24 1352 Date Transcribed: 06/22/24 152 Crew Team Member[facility] Office Visit ([facility] ) EMIL TRONCOSO ([id number]) 1955 M Date Time Provider Department 06/12/24 1:00 PM BRI DICKSON [facility] During your visit today, we recorded the following information about you: Temperature Pulse Respiration Blood pressure 99 degrees 85/minute 20/minute 142/82 Weight 81.1 kg Bri Dickson, SOCK KNITTING MACHINE OPERATOR.SUBSTATION DESIGN DRAFTSPERSON 06/12/2024 1:10 PM Signed Subjective Cough Associated symptoms include chest pain (with deep breaths), chills, headaches and shortness of breath. Pertinent negatives include no ear pain and no sore throat. Emil Troncoso is a 69 year old male who presents with cough, chills, sinus congestion and drainage, intermittent shortness of breath for the past 5 days. States he feels pain in his upper chest with breathing. He has had some body aches. He has not taken any medication today. Review of Systems Constitutional: Positive for chills and malaise/fatigue. Negative for fever. HENT: Positive for congestion. Negative for ear pain and sore throat. Respiratory: Positive for cough, sputum production and shortness of breath. Cardiovascular: Positive for chest pain (with deep breaths). Gastrointestinal: Positive for nausea. Negative for abdominal pain and vomiting. Neurological: Positive for headaches. BP 142/82 Pulse 85 Temp 37.2 ?C (99 ?F) Resp 20 Wt 81.1 kg (178 lb 12.7 oz) SpO2 98% BMI 26.40 kg/m? PAST MEDICAL HISTORY Diagnosis Date Abdominal pain, left lower quadrant Acute myocardial infarction, unspecified site, episode of care unspecified 2004 Arrhythmia Talamantes's esophagus 2012 Chronic obstructive pulmonary disease (COPD) (HCC) Coronary artery disease Essential hypertension, benign Hemorrhage of gastrointestinal tract, unspecified Hx of blood clots Migraines Other and unspecified hyperlipidemia Sleep apnea 01/2015 Snoring PAST SURGICAL HISTORY Procedure Laterality Date APPENDECTOMY COLONOSCOPY FLX DX W/COLLJ SPEC WHEN PFRMD 02/27/2012 Colonoscopy repeat 3 years COLONOSCOPY FLX DX W/COLLJ SPEC WHEN PFRMD 03/09/15 Colonoscopy ESOPHAGOGASTRODUODENOSCOPY TRANSORAL DIAGNOSTIC 09/28/12 EGD ESOPHAGOGASTRODUODENOSCOPY TRANSORAL DIAGNOSTIC 08/17/2014 EGD LAPAROSCOPY SURG RPR INITIAL INGUINAL HERNIA 11/30/06 PAST SURGICAL HISTORY OF left knee ALLERGIES Bees, Duricef [Cefadroxil], and Niaspan [Niacin] MEDICATIONS albuterol HFA (PROVENTIL HFA, VENTOLIN HFA) 90 mcg/actuation inhaler Inhale 2 Puffs as instructed every 4 hours as needed. rosuvastatin (CRESTOR) 5 mg tablet Take 1 tablet by mouth daily at bedtime. verapamil ER 180 mg 24 hr capsule Take 1 capsule by mouth once daily. apixaban (ELIQUIS) 5 mg tab tab(s) Take 5 mg by mouth twice daily. albuterol HFA (PROAIR HFA) 90 mcg/actuation inhaler Inhale 2 Puffs as instructed every 4 hours as needed. pantoprazole (PROTONIX) 40 mg tablet Take 1 tablet by mouth once daily. nitroglycerin sublingual 0.4 mg SL tablet Dissolve 1 tablet under the tongue as needed. FOR CHEST PAIN. IF NO RELIEF CALL 911 Aspirin 81 mg Tab Take 81 mg by mouth. MULTI-VITAMIN ORAL Take by mouth once daily. doxycycline hyclate (VIBRAMYCIN) 100 mg capsule Take 1 capsule (100 mg) by mouth two times a day for 10 days. guaiFENesin (MUCINEX) 600 mg 12 hr tablet Take 2 tablets by mouth twice daily. (Patient not taking: Reported on 06/12/2024) benzonatate (TESSALON PERLES) 100 mg capsule Take 1 capsule by mouth three times daily as needed. (Patient not taking: Reported on 06/12/2024) losartan (COZAAR) 50 mg tablet Take 50 mg by mouth once daily. (Patient not taking: Reported on 06/12/2024) BUDESONIDE (PULMICORT INHALATION) Inhale 2 Puffs as instructed every morning. (Patient not taking: Reported on 06/12/2024) FAMILY HISTORY Problem Relation Age of Onset Cancer Brother prostate Cancer Father stomach Coronary Artery Disease Father Coronary Artery Disease Mother Diabetes Mother Diabetes Brother Hearing Loss Father Heart Father Heart Mother Hypertension Mother Hypertension Father Prostate Cancer Brother Psychiatry Sister Stroke Mother Social History Tobacco Use Smoking status: Never Smokeless tobacco: Never Substance Use Topics Alcohol use: No Comment: quit Drug use: No Objective Physical Exam Vitals and nursing note reviewed. Constitutional: General: He is not in acute distress. Appearance: Normal appearance. He is not ill-appearing. HENT: Right Ear: Tympanic membrane, ear canal and external ear normal. Left Ear: Tympanic membrane, ear canal and external ear normal. Nose: Congestion present. Mouth/Throat: Mouth: Mucous membranes are moist. Pharynx: Oropharynx is clear. Uvula midline. No oropharyngeal exudate or posterior oropharyngeal erythema. Cardiovascular: Rate and Rhythm: Normal rate and regular rhythm. Heart sounds: Murmur heard. Pulmonary: Effo (more content not included)... Normal [facility] COVID AND INFLUENZA A/B AND RSV PCR, ROUTINEon 06-12-2024 SARS-CoV-2 (COVID-19) RNA RK+probe Ql (Unsp spec) SARS-COV-2 (AGENT OF COVID-19) RNA: Not detected INFLUENZA A RNA: Not detected INFLUENZA B RNA: Not detected RESPIRATORY SYNCYTIAL VIRUS (RSV) RNA: Not detected Normal [facility] Comment on above: Performed By: #### C VFLRS #### [facility] CLIA [id number] [address] [place] [address] [place] Echo Complete W/ Contraston 03-17-2024 Echo Complete W/ Contrast [facility] [address] [place] [id number] Echo Complete W/ Contrast 03/17/24 1305 MR#: [id number] Acct: [id number] Name: EMIL TRONCOSO Rep #: [id number] : 1955 68 From: Oanh Mena MD Attending Dr: Dr. Yaz Zepeda MD Status: REG CLI Ordering Dr: Will Vences MOLASSES AND CARAMEL OPERATOR MOLASSES AND CARAMEL OPERATOR-C Date: 03/17/24 Location: CVS Sex: M C Admitted: Reason For Study: MURMUR Procedure This was a 2D Doppler, Color Flow transthoracic echocardiogram. The study was technically difficult. Contrast injection was performed. Exam performed in department. Left Ventricle Mild concentric left ventricular hypertrophy. The left ventricular ejection fraction is 65 %. Normal diastology for age. Right Ventricle Normal right ventricle. Atria The left and right atria are normal. Mitral Valve Mild mitral annular calcification. Trivial mitral valve insufficiency. Tricuspid Valve Trivial tricuspid valve insufficiency. Normal pulmonary artery pressure. Aortic Valve Mild calcific aortic valve stenosis with mean peak gradient of 14.6 mmHg. Mild to moderate aortic valve regurgitation. Pulmonic Valve The pulmonic valve is not well visualized. Great Vessels Normal sized aortic root. Pericardium/Pleural No pericardial effusion. Medication 22 gauge I.V. with prn adaptor inserted into right arm. Diluted definity 3.5ml given slow IV push to enhance endocardial definition. MMode/2D Measurements Calculations LVIDd: 4.6 cm IVSd: 1.0 cm asc Aorta Diam: 3.6 cm LVIDs: 3.2 cm LVPWd: 1.4 cm FS: 30.8 % LAV(MOD-bp): 32.0 ml LVAd ap4: 40.8 cm2 SV(MOD-sp4): 95.7 ml LAV(MOD-bp) Indexed: 16.6 ml/m2 LVLd ap4: 9.3 cm SI(MOD-sp4): 49.6 ml/m2 LAV(MOD-sp2): 33.8 ml EDV(MOD-sp4): 145.7 ml LAV(MOD-sp4): 28.1 ml EDV(sp4-el): 152.0 ml LVAs ap4: 21.0 cm2 LVLs ap4: 7.2 cm ESV(MOD-sp4): 50.0 ml ESV(sp4-el): 51.6 ml EF(MOD-sp4): 65.7 % EF(sp4-el): 66.1 % SV(sp4-el): 100.4 ml LA A4 area: 12.5 cm2 RA A4 area: 10.7 cm2 Time Measurements MV dec time: 0.24 sec Doppler Measurements Calculations MV E max bimal: 67.4 cm/sec Lat Peak E' Bimal: 9.8 cm/sec Med Peak E' Bimal: 8.2 cm/sec MV A max bimal: 81.1 cm/sec E/E' lat: 6.9 E/E' med: 8.3 MV E/A: 0.83 MV V2 max: 92.0 cm/sec Ao V2 max: 262.1 cm/sec MV max P.4 mmHg MV dec slope: 284.9 cm/sec2 Ao max P.5 mmHg MV V2 mean: 56.3 cm/sec Ao V2 mean: 174.8 cm/sec MV mean P.5 mmHg Ao mean P.6 mmHg MV V2 VTI: 44.8 cm Ao V2 VTI: 60.7 cm AV (velocity ratio): 0.67 AI max bimal: 411.0 cm/sec LV V1 max: 159.8 cm/sec PA V2 max: 97.0 cm/sec AI max P.6 mmHg LV V1 max P.2 mmHg LV V1 mean P.6 mmHg AI dec slope: 147.8 cm/sec2 LV V1 mean: 84.1 cm/sec AI P1/2t: 814.2 msec LV V1 VTI: 40.8 cm TR max bimal: 222.9 cm/sec TR max P.9 mmHg ECHO/Echo Complete W/ Contrast Interpretation Summary Mild concentric left ventricular hypertrophy. The left ventricular ejection fraction is 65 %. Mild calcific aortic valve stenosis with mean peak gradient of 14.6 mmHg. Mild to moderate aortic valve regurgitation. Ordering Physician: Will Vences Referring Physician: Yaz Zepeda Performed By: Sana Leahy and Student 03/17/24 1455 Date Oanh Mena MD CC: MOLASSES AND CARAMEL OPERATOR-C Will Vences; Dr. Yaz Zepeda MD Date Dictated: 03/17/24 1305 Date Transcribed: 03/17/24 145 Crew Team Member: Signed Normal [facility] Antinuclear Antibody, IFAon 03-11-2024 JENNA, IFA Negative Normal . [facility] Comment on above: Result Comment: Nega tive <1:80 Borderline 1:80 Positive >1:80 ICAP nomenclature: AC-0 For more information about Hep-2 cell patterns use ANApatterns.org, the official website for the International Consensus on Antinuclear Antibody (JENNA) Patterns (ICAP). Performed at: [address] [id number] Rounding And Backing Machine Operator: Phoenix Kelley PhD, Phone: [phone] Performed By: #### L 500.4050, L501.6710, L100.0500, L501.9520, L506.1000, L501.1400, L500.4100, L503.6620, L101.9900, L3100.7950 #### [facility] [address] [place], [place], [id number] BNP,B-Type NATRIURETIC PEPTI Lily 03-09-2024 Natriuretic peptide B (Bld) [Mass/Vol] 36.0 pg/mL Normal 0-100 [facility] Comment on above: Performed By: #### L 500.4050, L501.6710, L100.0500, L501.9520, L506.1000, L501.1400, L500.4100, L503.6620, L101.9900, L3100.7950 #### [facility] [address] [place], [place], [id number] CBC-Complete Blood Cnt No [facility] 03-09-2024 Erythrocyte distribution width (RBC) [Ratio] 13.4 % Normal 11.6-14.6 [facility] Comment on above: Performed By: #### L 500.4050, L501.6710, L100.0500, L501.9520, L506.1000, L501.1400, L500.4100, L503.6620, L101.9900, L3100.7950 #### [facility] [address] [place], [place], [id number] Hematocrit (Bld) [Volume fraction] 45.5 % Normal 40-54 [facility] Comment on above: Performed By: #### L 500.4050, L501.6710, L100.0500, L501.9520, L506.1000, L501.1400, L500.4100, L503.6620, L101.9900, L3100.7950 #### [facility] [address] [place], [address] Hemoglobin (Bld) [Mass/Vol] 15.4 g/dL Normal 13.0-16.5 [facility] Comment on above: Performed By: #### L 500.4050, L501.6710, L100.0500, L501.9520, L506.1000, L501.1400, L500.4100, L503.6620, L101.9900, L3100.7950 #### [facility] [address] [place], [address] MCH (RBC) [Entitic mass] 31.6 pg Normal 27.0-32.0 [facility] Comment on above: Performed By: #### L 500.4050, L501.6710, L100.0500, L501.9520, L506.1000, L501.1400, L500.4100, L503.6620, L101.9900, L3100.7950 #### [facility] [address] [place], [address] MCHC (RBC) [Mass/Vol] 33.8 g/dL Normal 32-36 [facility] Comment on above: Performed By: #### L 500.4050, L501.6710, L100.0500, L501.9520, L506.1000, L501.1400, L500.4100, L503.6620, L101.9900, L3100.7950 #### [facility] [address] [place], [address] MCV (RBC) [Entitic vol] 93.2 fL Normal 80-94 [facility] Comment on above: Performed By: #### L 500.4050, L501.6710, L100.0500, L501.9520, L506.1000, L501.1400, L500.4100, L503.6620, L101.9900, L3100.7950 #### [facility] [address] [facility] [facility] [place], [address] Platelet mean volume (Bld) [Entitic vol] 9.4 fL Normal 6.2-12.0 [facility] Comment on above: Performed By: #### L 500.4050, L501.6710, L100.0500, L501.9520, L506.1000, L501.1400, L500.4100, L503.6620, L101.9900, L3100.7950 #### [facility] [address] [place], [address] Platelets (Bld) [#/Vol] 296 10*3/uL Normal 150-450 [facility] Comment on above: Performed By: #### L 500.4050, L501.6710, L100.0500, L501.9520, L506.1000, L501.1400, L500.4100, L503.6620, L101.9900, L3100.7950 #### [facility] [address] [place], [place], [phone] (019) RBC (Bld) [#/Vol] 4.88 10*6/uL Normal 4.6-6.2 [facility] Comment on above: Performed By: #### L 500.4050, L501.6710, L100.0500, L501.9520, L506.1000, L501.1400, L500.4100, L503.6620, L101.9900, L3100.7950 #### [facility] [address] [place], [place], [phone] (202) RDW SD 45.9 fl High 35.1-43.9 [facility] Comment on above: Performed By: #### L 500.4050, L501.6710, L100.0500, L501.9520, L506.1000, L501.1400, L500.4100, L503.6620, L101.9900, L3100.7950 #### [facility] [address] [place], [address] WBC (Bld) [#/Vol] 13.9 10*3/uL High 4.4-11.0 [facility] Comment on above: Performed By: #### L 500.4050, L501.6710, L100.0500, L501.9520, L506.1000, L501.1400, L500.4100, L503.6620, L101.9900, L3100.7950 #### [facility] [address] [place], [address] CRPon 03-09-2024 C-REACTIVE PROT < 2.90 Normal 0.0-3.0 [facility] Comment on above: Result Comment: C-Re active Protein (CRP) provides useful information for the diagnosis, therapy and monitoring of inflammatory processes and associated diseases. For the evaluation of Relative Risk for Cardiovascular Disease, a High Sensitivity CRP (HSCRP) should be ordered. Performed By: #### L 500.4050, L501.6710, L100.0500, L501.9520, L506.1000, L501.1400, L500.4100, L503.6620, L101.9900, L3100.7950 #### [facility] [address] [place], [address] Comprehensive Metabolic Prof ilon 1 Albumin [Mass/Vol] 3.6 g/dL Normal 3.2-5.0 [facility] Comment on above: Performed By: #### L 500.4050, L501.6710, L100.0500, L501.9520, L506.1000, L501.1400, L500.4100, L503.6620, L101.9900, L3100.7950 #### [facility] [address] [place], [address] Albumin/Globulin [Mass ratio] 1.0 {ratio} Normal 0.9-2.4 [facility] Comment on above: Performed By: #### L 500.4050, L501.6710, L100.0500, L501.9520, L506.1000, L501.1400, L500.4100, L503.6620, L101.9900, L3100.7950 #### [facility] [address], [address] ALK P 56 U/L Normal 45-117 [facility] Comment on above: Performed By: #### L 500.4050, L501.6710, L100.0500, L501.9520, L506.1000, L501.1400, L500.4100, L503.6620, L101.9900, L3100.7950 #### [facility] [address] [place], [address] ALT [Catalytic activity/Vol] 36 U/L Normal 16-61 [facility] Comment on above: Performed By: #### L 500.4050, L501.6710, L100.0500, L501.9520, L506.1000, L501.1400, L500.4100, L503.6620, L101.9900, L3100.7950 #### [facility] [address] [place], [address] AST [Catalytic activity/Vol] 12 U/L Low 15-37 [facility] Comment on above: Performed By: #### L 500.4050, L501.6710, L100.0500, L501.9520, L506.1000, L501.1400, L500.4100, L503.6620, L101.9900, L3100.7950 #### [facility] [address] [place], [address] Bilirubin [Mass/Vol] 0.70 mg/dL Normal 0.20-1.00 [facility] Comment on above: Result Comment: For patients on eltrombopag therapy, use of Dimension [place] TBIL is not recommended. Performed By: #### L 500.4050, L501.6710, L100.0500, L501.9520, L506.1000, L501.1400, L500.4100, L503.6620, L101.9900, L3100.7950 #### [facility] [address] [place], [address] BUN/CRE 30.3 RATIO High 10-20 [facility] Comment on above: Performed By: #### L 500.4050, L501.6710, L100.0500, L501.9520, L506.1000, L501.1400, L500.4100, L503.6620, L101.9900, L3100.7950 #### [facility] [address] [place], [address] CA,Total 9.3 mg/dL Normal 8.5-10.1 [facility] Comment on above: Performed By: #### L 500.4050, L501.6710, L100.0500, L501.9520, L506.1000, L501.1400, L500.4100, L503.6620, L101.9900, L3100.7950 #### [facility] [address] [place], [address] Chloride [Moles/Vol] 104 mmol/L Normal 98-107 [facility] Comment on above: Performed By: #### L 500.4050, L501.6710, L100.0500, L501.9520, L506.1000, L501.1400, L500.4100, L503.6620, L101.9900, L3100.7950 #### [facility] [address] [place], [address] CO2 [Moles/Vol] 29.0 mmol/L Normal 21.0-32.0 [facility] Comment on above: Performed By: #### L 500.4050, L501.6710, L100.0500, L501.9520, L506.1000, L501.1400, L500.4100, L503.6620, L101.9900, L3100.7950 #### [facility] [address] [place], [address] Creatinine [Mass/Vol] 0.69 mg/dL Low 0.70-1.30 [facility] Comment on above: Result Comment: The validity of the calculated GFR GFRAA in patients over 70 years has not been determined. Clinical correlation is essential. Performed By: #### L 500.4050, L501.6710, L100.0500, L501.9520, L506.1000, L501.1400, L500.4100, L503.6620, L101.9900, L3100.7950 #### [facility] [address] [place], [address] EST GFR - AA 145 mL/min Normal >60 [facility] Comment on above: Result Comment: Afri can Mongolian GFR Calc Performed By: #### L 500.4050, L501.6710, L100.0500, L501.9520, L506.1000, L501.1400, L500.4100, L503.6620, L101.9900, L3100.7950 #### [facility] [address] [place], [address] GAP 5 Normal 5-15 [facility] Comment on above: Performed By: #### L 500.4050, L501.6710, L100.0500, L501.9520, L506.1000, L501.1400, L500.4100, L503.6620, L101.9900, L3100.7950 #### [facility] [address] [place], [address] GFR/1.73 sq M.predicted among non-blacks MDRD (S/P/Bld) [Vol rate/Area] 119 mL/min/{1.73_m2} Normal >60 [facility] Comment on above: Result Comment: Non- GFR Calc Performed By: #### L 500.4050, L501.6710, L100.0500, L501.9520, L506.1000, L501.1400, L500.4100, L503.6620, L101.9900, L3100.7950 #### [facility] [address] [place], [address] Globulin (S) [Mass/Vol] 3.6 g/dL Normal 2.2-4.2 [facility] Comment on above: Performed By: #### L 500.4050, L501.6710, L100.0500, L501.9520, L506.1000, L501.1400, L500.4100, L503.6620, L101.9900, L3100.7950 #### [facility] [address] [place], [address] Glucose [Mass/Vol] 128 mg/dL High 74-106 [facility] Comment on above: Result Comment: Fast ing Glucose result greater than or equal to 126 mg/dL suggests DIABETES MELLITUS per A.D.A. criteria. Performed By: #### L 500.4050, L501.6710, L100.0500, L501.9520, L506.1000, L501.1400, L500.4100, L503.6620, L101.9900, L3100.7950 #### [facility] [address] [place], [address] Potassium [Moles/Vol] 4.5 mmol/L Normal 3.5-5.1 [facility] Comment on above: Performed By: #### L 500.4050, L501.6710, L100.0500, L501.9520, L506.1000, L501.1400, L500.4100, L503.6620, L101.9900, L3100.7950 #### [facility] [address] [place], [address] Sodium [Moles/Vol] 138 mmol/L Normal 136-145 [facility] Comment on above: Performed By: #### L 500.4050, L501.6710, L100.0500, L501.9520, L506.1000, L501.1400, L500.4100, L503.6620, L101.9900, L3100.7950 #### [facility] [address] [place], [address] T PROT 7.2 g/dL Normal 6.4-8.2 [facility] Comment on above: Performed By: #### L 500.4050, L501.6710, L100.0500, L501.9520, L506.1000, L501.1400, L500.4100, L503.6620, L101.9900, L3100.7950 #### [facility] [address] [place], [address] Urea nitrogen [Mass/Vol] 21 mg/dL High 7-18 [facility] Comment on above: Performed By: #### L 500.4050, L501.6710, L100.0500, L501.9520, L506.1000, L501.1400, L500.4100, L503.6620, L101.9900, L3100.7950 #### [facility] [address] [place], [address] Erythrocyte Sed Rateon 03-09 SED RATE 1 mm/hr Normal 0-20 [facility] Comment on above: Performed By: #### L 500.4050, L501.6710, L100.0500, L501.9520, L506.1000, L501.1400, L500.4100, L503.6620, L101.9900, L3100.7950 #### [facility] [address] [place], [address] Lipid Profileon 03-09-2024 Cholesterol [Mass/Vol] 164 mg/dL Normal 200 [facility] Comment on above: Result Comment: <200 mg/dL Desirable 200-240 mg/dL Borderline >240 mg/dL High Risk Performed By: #### L 500.4050, L501.6710, L100.0500, L501.9520, L506.1000, L501.1400, L500.4100, L503.6620, L101.9900, L3100.7950 #### [facility] [address] [place], [address] Cholesterol in HDL [Mass/Vol] 64 mg/dL Normal [facility] Comment on above: Result Comment: The drugs N-Acetylcysteine and Metamizole may falsely depress this assay. Reference Range HDL <40 mg/dL Low HDL Cholesterol HDL >or= 60 mg/dL High HDL Cholesterol Performed By: #### L 500.4050, L501.6710, L100.0500, L501.9520, L506.1000, L501.1400, L500.4100, L503.6620, L101.9900, L3100.7950 #### [facility] [address] [place], [address] Cholesterol in LDL [Mass/Vol] 88 mg/dL Normal 0-130 [facility] Comment on above: Performed By: #### L 500.4050, L501.6710, L100.0500, L501.9520, L506.1000, L501.1400, L500.4100, L503.6620, L101.9900, L3100.7950 #### [facility] [address] [place], [address] Cholesterol in VLDL [Mass/Vol] 12 mg/dL Normal 5-40 [facility] Comment on above: Performed By: #### L 500.4050, L501.6710, L100.0500, L501.9520, L506.1000, L501.1400, L500.4100, L503.6620, L101.9900, L3100.7950 #### [facility] [address] [place], [address] Triglyceride [Mass/Vol] 60 mg/dL Normal [facility] Comment on above: Result Comment: The drugs N-Acetylcysteine and Metamizole may falsely depress this assay. Serum Triglycerides Reference Interval Normal <150 mg/dL Borderline high 150 - 199 mg/dL High 200 - 499 mg/dL Very High > or = 500 mg/dL Performed By: #### L 500.4050, L501.6710, L100.0500, L501.9520, L506.1000, L501.1400, L500.4100, L503.6620, L101.9900, L3100.7950 #### [facility] [address] [place], [address] Thyroid Stim Hormone (TSH)on 03-09-2024 TSH 2.850 uIU/mL Normal 0.358-3.[address] [facility] Comment on above: Performed By: #### L 500.4050, L501.6710, L100.0500, L501.9520, L506.1000, L501.1400, L500.4100, L503.6620, L101.9900, L3100.7950 #### [facility] [address] [place], [address] Uric Acidon 03-09-2024 URIC 3.6 mg/dL Normal 3.5-7.2 [facility] Comment on above: Result Comment: The drugs N-Acetylcysteine and Metamizole may falsely depress this assay. Performed By: #### L 500.4050, L501.6710, L100.0500, L501.9520, L506.1000, L501.1400, L500.4100, L503.6620, L101.9900, L3100.7950 #### [facility] [address] [place], [address] Vitamin D,25 Hydroxyon 03-09 Vitamin D 25-OH 30.4 ng/mL Normal [facility] Comment on above: Result Comment: Sadaf min D 25(OH) Status Range Deficiency <20 ng/mL (50nmol/L) Insufficiency 20 - 30 ng/mL (50 - 75 nmol/L) Sufficiency 30 - 100 ng/mL (75 - 250 nmol/L) Toxicity >100 ng/mL (>250 nmol/L) Performed By: #### L 500.4050, L501.6710, L100.0500, L501.9520, L506.1000, L501.1400, L500.4100, L503.6620, L101.9900, L3100.7950 #### [facility] [address] [place], [address] No Panel InformationOrdered By: Drew Cox on 04-09-2023 Troponin I High Sensitivity 6 pg/mL 3.0-78.0 [facility] Comment on above: Please Note: New Lilia t Units and Gender Specific Reference Ranges. For more information see Policy Stat Procedure [place] High Sensitivity Troponin (TNIH) and attachments. Basophil percentageOrdered B y: Kiko Oseguera on 04-07-2023 Bilirubin [Mass/Vol] 0.70 mg/dL 0.20-1.00 [facility] Comment on above: For patients on eltr ombopag therapy, use of Dimension [place] TBIL is not recommended. Chloride [Moles/Vol] 107 mmol/L 98-107 [facility] Glucose [Mass/Vol] 115 mg/dL 74-106 [facility] Comment on above: Fasting Glucose resu lt from 100 to 125 mg/dL suggests IMPAIRED HOMEOSTASIS per A.D.A. criteria. Potassium [Moles/Vol] 4.3 mmol/L 3.5-5.1 [facility] Protein [Mass/Vol] 7.3 g/dL 6.4-8.2 [facility] Sodium [Moles/Vol] 138 mmol/L 136-145 [facility] WBC (Bld) [#/Vol] 6.4 10*3/uL 4.4-11.0 [facility] Blood erythrocytes count (nu mber/volume)Ordered By: Kiko Oseguera on 04-07-2023 RBC (Bld) [#/Vol] 4.65 10*6/uL 4.6-6.2 [facility] Blood hemoglobin measurement (mass/volume)Ordered By: Kiko Oseguera on 04-07-2023 Hemoglobin (Bld) [Mass/Vol] 14.2 g/dL 13.0-16.5 [facility] Blood platelet mean volumeOr dered By: Kiko Oseguera on 04-07-2023 Platelet mean volume (Bld) [Entitic vol] 9.2 fL 6.2-12.0 [facility] Determination of erythrocyte mean corpuscular volume (MCV)Ordered By: Kiko Oseguera on 04-07-2023 MCV (RBC) [Entitic vol] 93.5 fL 80-94 [facility] Direct bilirubinOrdered By: Kiko Oseguera on 04-07-2023 Bilirubin.direct [Mass/Vol] 0.21 mg/dL 0.00-0.30 [facility] Hematocrit Auto (Bld) [Volum e fraction]Ordered By: Kiko Oseguera on 04-07-2023 Hematocrit (Bld) [Volume fraction] 43.5 % 40-54 [facility] INR in Blood by Coagulation assayOrdered By: Kiko Oseguera on 04-07-2023 INR Coag (Bld) [Relative time] 1.0 {INR} [facility] - Chemistry and C hemistry - challengeOrdered By: Kiko Oseguera on 04-07-2023 ALP [Catalytic activity/Vol] 55 U/L 45-117 [facility] ALT [Catalytic activity/Vol] 22 U/L 16-61 [facility] CO2 [Moles/Vol] 30.0 mmol/L 21.0-32.0 [facility] Globulin (S) [Mass/Vol] 3.6 g/dL 2.2-4.2 [facility] Urea nitrogen/Creatinine [Mass ratio] 29.1 mg/mg 10-20 [facility] - CoagulationOrde red By: Kiko Oseguera on 04-07-2023 aPTT Coag (Bld) [Time] 28.2 s 24.1-36.2 [facility] PT Coag (PPP) [Time] 13.2 s 11.7-14.9 [facility] - Hematology and Cell countsOrdered By: Kiko Oseguera on 04-07-2023 Erythrocyte distribution width (RBC) [Entitic vol] 44.9 fL 35.1-43.9 [facility] Erythrocyte distribution width (RBC) [Ratio] 13.2 % 11.6-14.6 [facility] MCH (RBC) [Entitic mass] 30.5 pg 27.0-32.0 [facility] MCHC Auto (RBC) [Mass/Vol]Or dered By: Kiko Oseguera on 04-07-2023 MCHC (RBC) [Mass/Vol] 32.6 g/dL 32-36 [facility] No Panel InformationOrdered By: Kiko Oseguera on 04-07-2023 Estimated GFR (MDRD) Amer 147 mL/min >60 [facility] Comment on above: GFR Calc Estimated GFR (MDRD) Non-Af Amer 121 mL/min >60 [facility] Comment on above: Non- GFR Calc Platelets bldOrdered By: Kiko Oseguera on 04-07-2023 Platelets (Bld) [#/Vol] 275 10*3/uL 150-450 [facility] Serum or plasma albumin shayne urement (mass/volume)Ordered By: Kiko Oseguera on 04-07-2023 Albumin [Mass/Vol] 3.7 g/dL 3.2-5.0 [facility] Serum or plasma calcium shayne urement (mass/volume)Ordered By: Kiko Oseguera on 04-07-2023 Calcium [Mass/Vol] 9.3 mg/dL 8.5-10.1 [facility] Serum or plasma creatinine m easurement (mass/volume)Ordered By: Kiko Oseguera on 04-07-2023 Creatinine [Mass/Vol] 0.69 mg/dL 0.70-1.30 [facility] Comment on above: The validity of the calculated GFR & GFRAA in patients over 70 years has not been determined. Clinical correlation is essential. Serum or plasma urea nitroge n measurement (mass/volume)Ordered By: Kiko Oseguera on 04-07-2023 Urea nitrogen [Mass/Vol] 20 mg/dL 7-18 [facility] Thin prep Papanicolaou smear with manual screeningOrdered By: Kiko Oseguera on 04-07-2023 Thin prep Papanicolaou smear with manual screening 14 U/L 15-37 [facility] Thin prep Papanicolaou smear with manual screening 1 5-15 [facility] TFTESTon 02-19-2023 Free Testosterone 8.21 ng/dL Normal 3.47-13.0 [facility] ([place]) Comment on above: Result Comment: ---- ADDITIONAL INFORMATION This test was developed and its performance characteristics determined by [facility] in a manner consistent with CLIA requirements. This test has not been cleared or approved by the U.S. Food and Drug Administration. Performed By: #### C RP, TSH, MG, GFR, CMP, TFTEST, TROPHS, FT4, CBC, ADIFF, ESR, ANEU #### [address] [address] #### B12 #### [place] [address] Testoster Tot 526 ng/dL Normal 240-950 [facility] ([place]) Comment on above: Result Comment: ---- ADDITIONAL INFORMATION Testing performed by Liquid Chromatography-Tandem Mass Spectrometry (LC-MS/MS). This test was developed and its performance characteristics determined by [facility] in a manner consistent with CLIA requirements. This test has not been cleared or approved by the U.S. Food and Drug Administration. Test Performed by: [facility] [place] [address] Rounding And Backing Machine Operator: Gael Penny M.D. Ph.D.; CLIA# [id number] Performed By: #### C RP, TSH, MG, GFR, CMP, TFTEST, TROPHS, FT4, CBC, ADIFF, ESR, ANEU #### [address] [address] #### B12 #### [place] [address] .Auto Diffon 02-12-2023 Basophil, Absolute 0.1 10 3/mcL Normal 0.0-0.2 [facility] ([place]) Comment on above: Performed By: #### C RP, TSH, MG, GFR, CMP, TFTEST, TROPHS, FT4, CBC, ADIFF, ESR, ANEU #### [address] [address] #### B12 #### [address] [address] Basophils/100 WBC (Bld) 1.0 % Normal 0.0-2.5 [facility] ([place]) Comment on above: Performed By: #### C RP, TSH, MG, GFR, CMP, TFTEST, TROPHS, FT4, CBC, ADIFF, ESR, ANEU #### [address] [address] #### B12 #### [address] [address] Eosinophil, Absolute 0.4 10 3/mcL Normal 0.0-0.4 [facility] ([place]) Comment on above: Performed By: #### C RP, TSH, MG, GFR, CMP, TFTEST, TROPHS, FT4, CBC, ADIFF, ESR, ANEU #### [address] [address] #### B12 #### [address] [address] Eosinophils/100 WBC (Bld) 4.7 % Normal 0.0-7.0 [facility] ([place]) Comment on above: Performed By: #### C RP, TSH, MG, GFR, CMP, TFTEST, TROPHS, FT4, CBC, ADIFF, ESR, ANEU #### [address] [address] #### B12 #### [address] [address] Lymphocyte, Absolute 1.9 10 3/mcL Normal 0.8-3.9 [facility] ([place]) Comment on above: Performed By: #### C RP, TSH, MG, GFR, CMP, TFTEST, TROPHS, FT4, CBC, ADIFF, ESR, ANEU #### [address] [address] #### B12 #### [address] [address] Lymphocytes/100 WBC (Bld) 21.1 % Normal 10.0-50.0 [facility] ([place]) Comment on above: Performed By: #### C RP, TSH, MG, GFR, CMP, TFTEST, TROPHS, FT4, CBC, ADIFF, ESR, ANEU #### [address] [address] #### B12 #### [address] [address] Monocyte, Absolute 0.9 10 3/mcL Normal 0.2-1.0 [facility] ([place]) Comment on above: Performed By: #### C RP, TSH, MG, GFR, CMP, TFTEST, TROPHS, FT4, CBC, ADIFF, ESR, ANEU #### [place] [address] #### B12 #### [address] [address] Monocytes/100 WBC (Bld) 10.7 % Normal 1.7-13.0 [facility] ([place]) Comment on above: Performed By: #### C RP, TSH, MG, GFR, CMP, TFTEST, TROPHS, FT4, CBC, ADIFF, ESR, ANEU #### [address] [address] #### B12 #### [address] [address] Neutrophils/100 WBC (Bld) 62.5 % Normal 37.0-80.0 [facility] ([place]) Comment on above: Performed By: #### C RP, TSH, MG, GFR, CMP, TFTEST, TROPHS, FT4, CBC, ADIFF, ESR, ANEU #### [address] [address] #### B12 #### [address] [address] .GFRon 02-12-2023 GFR Non- 105 ml/min/1.73sqm Normal [facility] ([place]) Comment on above: Result Comment: GFR Population mean for , [...] 15 mL/min/1.73 square meters Performed By: #### C RP, TSH, MG, GFR, CMP, TFTEST, TROPHS, FT4, CBC, ADIFF, ESR, ANEU #### [address] [address] #### B12 #### [place] [address] GFR 127 ml/min/1.73sqm Normal [facility] ([place]) Comment on above: Result Comment: GFR Population mean for , [...] 15 mL/min/1.73 square meters Performed By: #### C RP, TSH, MG, GFR, CMP, TFTEST, TROPHS, FT4, CBC, ADIFF, ESR, ANEU #### [address] [address] #### B12 #### [address] [address] .NEUABSon 02-12-2023 Neutrophil, Absolute 5.5 10 3/mcL Normal 2.9-6.2 [facility] ([place]) Comment on above: Performed By: #### C RP, TSH, MG, GFR, CMP, TFTEST, TROPHS, FT4, CBC, ADIFF, ESR, ANEU #### [address] [address] #### B12 #### [address] [address] B12on 02-12-2023 Cobalamin (Vitamin B12) [Mass/Vol] 561 pg/mL Normal 211-911 [facility] ([place]) Comment on above: Performed By: #### C RP, TSH, MG, GFR, CMP, TFTEST, TROPHS, FT4, CBC, ADIFF, ESR, ANEU #### [address] [address] #### B12 #### [place] [address] CBCon 02-12-2023 Erythrocyte distribution width (RBC) [Ratio] 14.3 % Normal 11.5-14.5 [facility] ([place]) Comment on above: Performed By: #### C RP, TSH, MG, GFR, CMP, TFTEST, TROPHS, FT4, CBC, ADIFF, ESR, ANEU #### [address] [address] #### B12 #### [address] [address] Hematocrit (Bld) [Volume fraction] 42.8 % Normal 42.0-52.0 [facility] ([place]) Comment on above: Performed By: #### C RP, TSH, MG, GFR, CMP, TFTEST, TROPHS, FT4, CBC, ADIFF, ESR, ANEU #### [address] [address] #### B12 #### [address] [address] Hgb 14.9 G/dL Normal 14.0-18.0 [facility] ([place]) Comment on above: Performed By: #### C RP, TSH, MG, GFR, CMP, TFTEST, TROPHS, FT4, CBC, ADIFF, ESR, ANEU #### [place] [address] #### B12 #### [place] [address] MCH (RBC) [Entitic mass] 31.3 pg High 27.0-31.2 [facility] ([place]) Comment on above: Performed By: #### C RP, TSH, MG, GFR, CMP, TFTEST, TROPHS, FT4, CBC, ADIFF, ESR, ANEU #### [place] [address] #### B12 #### [place] [address] MCHC 34.9 G/dL Normal 31.8-35.4 [facility] ([place]) Comment on above: Performed By: #### C RP, TSH, MG, GFR, CMP, TFTEST, TROPHS, FT4, CBC, ADIFF, ESR, ANEU #### [place] [address] #### B12 #### [place] [address] MCV (RBC) [Entitic vol] 89.8 fL Normal 80.0-94.0 [facility] ([place]) Comment on above: Performed By: #### C RP, TSH, MG, GFR, CMP, TFTEST, TROPHS, FT4, CBC, ADIFF, ESR, ANEU #### [place] [address] #### B12 #### [place] [address] Platelet 289 10 3/mcL Normal 130-400 [facility] ([place]) Comment on above: Performed By: #### C RP, TSH, MG, GFR, CMP, TFTEST, TROPHS, FT4, CBC, ADIFF, ESR, ANEU #### [place] [address] #### B12 #### [place] [address] Platelet mean volume (Bld) [Entitic vol] 7.1 fL Low 7.4-10.4 [facility] ([place]) Comment on above: Performed By: #### C RP, TSH, MG, GFR, CMP, TFTEST, TROPHS, FT4, CBC, ADIFF, ESR, ANEU #### [place] [address] #### B12 #### [place] [address] RBC 4.77 10 6/mcL Normal 4.04-6.13 [facility] ([place]) Comment on above: Performed By: #### C RP, TSH, MG, GFR, CMP, TFTEST, TROPHS, FT4, CBC, ADIFF, ESR, ANEU #### [place] [address] #### B12 #### [place] [address] WBC 8.8 10 3/mcL Normal 4.6-10.8 [facility] ([place]) Comment on above: Performed By: #### C RP, TSH, MG, GFR, CMP, TFTEST, TROPHS, FT4, CBC, ADIFF, ESR, ANEU #### [address] [address] #### B12 #### [address] 02-12-2023 Albumin Level 4.0 G/dL Normal 3.4-4.8 [facility] ([place]) Comment on above: Performed By: #### C RP, TSH, MG, GFR, CMP, TFTEST, TROPHS, FT4, CBC, ADIFF, ESR, ANEU #### [place] [address] #### B12 #### [place] [address] Albumin/Globulin [Mass ratio] 1.2 {ratio} Normal 1.1-2.5 [facility] ([place]) Comment on above: Performed By: #### C RP, TSH, MG, GFR, CMP, TFTEST, TROPHS, FT4, CBC, ADIFF, ESR, ANEU #### [address] [address] #### B12 #### [address] [address] ALP [Catalytic activity/Vol] 65 U/L Normal 40-135 [facility] ([place]) Comment on above: Performed By: #### C RP, TSH, MG, GFR, CMP, TFTEST, TROPHS, FT4, CBC, ADIFF, ESR, ANEU #### [address] [address] #### B12 #### [address] [address] ALT [Catalytic activity/Vol] 29 U/L Normal 16-63 [facility] ([place]) Comment on above: Performed By: #### C RP, TSH, MG, GFR, CMP, TFTEST, TROPHS, FT4, CBC, ADIFF, ESR, ANEU #### [address] [address] #### B12 #### [place] [address] AST [Catalytic activity/Vol] 13 U/L Normal 10-40 [facility] ([place]) Comment on above: Performed By: #### C RP, TSH, MG, GFR, CMP, TFTEST, TROPHS, FT4, CBC, ADIFF, ESR, ANEU #### [place] [address] #### B12 #### [place] [address] Bili Total 0.4 mg/dL Normal 0.2-1.0 [facility] ([place]) Comment on above: Result Comment: Use of this assay is not recommended for patients undergoing treatment with eltrombopag due to the potential for falsely elevated results. Performed By: #### C RP, TSH, MG, GFR, CMP, TFTEST, TROPHS, FT4, CBC, ADIFF, ESR, ANEU #### [address] [address] #### B12 #### [address] [address] BUN/Creatinine Ratio 19 ratio Normal 7-27 [facility] ([place]) Comment on above: Performed By: #### C RP, TSH, MG, GFR, CMP, TFTEST, TROPHS, FT4, CBC, ADIFF, ESR, ANEU #### [address] [address] #### B12 #### [address] [address] Calcium [Mass/Vol] 9.6 mg/dL Normal 8.4-10.2 [facility] ([place]) Comment on above: Performed By: #### C RP, TSH, MG, GFR, CMP, TFTEST, TROPHS, FT4, CBC, ADIFF, ESR, ANEU #### [place] [address] #### B12 #### [place] [address] Chloride [Moles/Vol] 101 mmol/L Normal 98-107 [facility] ([place]) Comment on above: Performed By: #### C RP, TSH, MG, GFR, CMP, TFTEST, TROPHS, FT4, CBC, ADIFF, ESR, ANEU #### [place] [address] #### B12 #### [place] [address] CO2 [Moles/Vol] 35 mmol/L High 23-31 [facility] ([place]) Comment on above: Performed By: #### C RP, TSH, MG, GFR, CMP, TFTEST, TROPHS, FT4, CBC, ADIFF, ESR, ANEU #### [place] [address] #### B12 #### [address] [address] Creatinine [Mass/Vol] 0.74 mg/dL Normal 0.70-1.30 [facility] ([place]) Comment on above: Performed By: #### C RP, TSH, MG, GFR, CMP, TFTEST, TROPHS, FT4, CBC, ADIFF, ESR, ANEU #### [address] [address] #### B12 #### [address] [address] Electrolyte Balance 6.0 mEq/L Normal 4.0-15.0 [facility] ([place]) Comment on above: Performed By: #### C RP, TSH, MG, GFR, CMP, TFTEST, TROPHS, FT4, CBC, ADIFF, ESR, ANEU #### [address] [address] #### B12 #### [address] [address] Globulin 3.4 G/dL Normal [facility] ([place]) Comment on above: Performed By: #### C RP, TSH, MG, GFR, CMP, TFTEST, TROPHS, FT4, CBC, ADIFF, ESR, ANEU #### [place] [address] #### B12 #### [address] [address] Glucose [Mass/Vol] 116 mg/dL High 80-115 [facility] ([place]) Comment on above: Performed By: #### C RP, TSH, MG, GFR, CMP, TFTEST, TROPHS, FT4, CBC, ADIFF, ESR, ANEU #### [place] [address] #### B12 #### [address] [address] Potassium [Moles/Vol] 4.8 mmol/L Normal 3.5-5.1 [facility] ([place]) Comment on above: Performed By: #### C RP, TSH, MG, GFR, CMP, TFTEST, TROPHS, FT4, CBC, ADIFF, ESR, ANEU #### [place] [address] #### B12 #### [place] [address] Sodium [Moles/Vol] 142 mmol/L Normal 136-145 [facility] ([place]) Comment on above: Performed By: #### C RP, TSH, MG, GFR, CMP, TFTEST, TROPHS, FT4, CBC, ADIFF, ESR, ANEU #### [address] [address] #### B12 #### [place] [address] Total Protein 7.4 G/dL Normal 6.4-8.2 [facility] ([place]) Comment on above: Performed By: #### C RP, TSH, MG, GFR, CMP, TFTEST, TROPHS, FT4, CBC, ADIFF, ESR, ANEU #### [address] [address] #### B12 #### [place] [address] Urea nitrogen [Mass/Vol] 14 mg/dL Normal 7-18 [facility] ([place]) Comment on above: Performed By: #### C RP, TSH, MG, GFR, CMP, TFTEST, TROPHS, FT4, CBC, ADIFF, ESR, ANEU #### [address] [address] #### B12 #### [place] [address] CRPon 02-12-2023 C-Reactive Protein 0.1 mg/dL Normal 0.0-0.3 [facility] ([place]) Comment on above: Performed By: #### C RP, TSH, MG, GFR, CMP, TFTEST, TROPHS, FT4, CBC, ADIFF, ESR, ANEU #### [place] [address] #### B12 #### [place] [address] ESRon 02-12-2023 Erythrocyte Sed Rate 15 mm/hr Normal 0-20 [facility] ([place]) Comment on above: Performed By: #### C RP, TSH, MG, GFR, CMP, TFTEST, TROPHS, FT4, CBC, ADIFF, ESR, ANEU #### [address] [address] #### B12 #### [place] [id number] FT4on 02-12-2023 Free T4 [Mass/Vol] 0.93 ng/dL Normal 0.76-1.46 [facility] ([place]) Comment on above: Performed By: #### C RP, TSH, MG, GFR, CMP, TFTEST, TROPHS, FT4, CBC, ADIFF, ESR, ANEU #### [address] [address] #### B12 #### [place] [address] MGon 02-12-2023 Magnesium [Mass/Vol] 2.1 mg/dL Normal 1.8-2.4 [facility] ([place]) Comment on above: Performed By: #### C RP, TSH, MG, GFR, CMP, TFTEST, TROPHS, FT4, CBC, ADIFF, ESR, ANEU #### [address] [address] #### B12 #### [place] [address] TROPHSon 02-12-2023 Troponin I High Sensitivity 4.9 ng/L Normal 0.0-76.2 [facility] ([place]) Comment on above: Performed By: #### C RP, TSH, MG, GFR, CMP, TFTEST, TROPHS, FT4, CBC, ADIFF, ESR, ANEU #### [address] [address] #### B12 #### [address] 02-12-2023 TSH Qn 3.31 m[IU]/L Normal 0.36-3.74 [facility] ([place]) Comment on above: Performed By: #### C RP, TSH, MG, GFR, CMP, TFTEST, TROPHS, FT4, CBC, ADIFF, ESR, ANEU #### [facility] [address] [place], [place] [address] #### B12 #### [place] [id number] [address] [place] [address] MRA/MRI BRAIN W/ + W/O CONTR [place] 07-21-2022 MRA/MRI BRAIN W/ + W/O CONTRAST ORIGINAL EXAMINATION: MRA HEAD and MR BRAIN with and without intravenous contrast TECHNIQUE: 3D [id number] images with source and reformatted 3D MIP images. Multi planar multi sequential MRI of the brain without and with intravenous contrast per standard protocol. COMPARISON: None. HISTORY: ORDERING SYSTEM PROVIDED HISTORY: Reason for Exam: FREQUENT DIZZY SPELLS, INCREASED HEADACHE FINDINGS: Parenchyma: No acute hemorrhage, infarction, mass, or abnormal enhancement is present. The grey-white matter junctions are maintained. Mild age commensurate parenchymal volume loss is noted. There are no space occupying intra-axial masses or extra-axial fluid collections. A few scattered FLAIR T2 hyperintensities within the subcortical, periventricular, deep white matter are identified likely to reflect mild chronic microvascular white matter ischemic disease. No evidence of hemorrhagic blood products. Ventricles: No ventricular enlargement or ventricular effacement. Orbits: Normal. Major intracranial flow voids: Preserved. Paranasal sinuses: Mild mucosal thickening of the bilateral ethmoid sinuses. Mastoids and middle ears: Trace effusion of the right mastoid air cells. Bones: Normal. Extracranial soft tissues: Normal. MRA: Internal carotid arteries: No hemodynamically significant stenosis. Ophthalmic arteries: Bilaterally patent. Anterior cerebral arteries: No hemodynamically significant stenosis. Posterior cerebral arteries: No hemodynamically significant stenosis. Anterior communicating artery: Present. Posterior communicating artery: Bilaterally aplastic or hypoplastic. Basilar artery: No hemodynamically significant stenosis. Superior cerebellar arteries: Bilaterally patent. Posteroinferior cerebellar arteries: Bilaterally patent. Vertebral arteries: Dominant left vertebral artery. No hemodynamically significant stenosis. IMPRESSION: 1. No acute intracranial pathology. 2. Few scattered FLAIR hyperintensities within the white matter likely to reflect mild chronic microvascular white matter ischemic disease. 3. Unremarkable MRA. Interpreted by: Delfino Ybarra MD Preliminary Report By: Delfino Ybarra MD Electronically signed By Delfino Ybarra MD Dictated Date: 07/21/2022 4:42:50 PM Prelim Date: 07/21/2022 4:54:51 PM Sign Date: 07/21/2022 4:54:51 PM Ordering Provider: YAZ Parrish [facility] ([place]) Basophil percentageOrdered B y: Dr. Torres on 05-27-2022 Chloride [Moles/Vol] 105 mmol/L 98-107 [facility] Glucose [Mass/Vol] 122 mg/dL 74-106 [facility] Comment on above: Fasting Glucose resu lt from 100 to 125 mg/dL suggests IMPAIRED HOMEOSTASIS per A.D.A. criteria. Potassium [Moles/Vol] 4.2 mmol/L 3.5-5.1 [facility] Sodium [Moles/Vol] 137 mmol/L 136-145 [facility] WBC (Bld) [#/Vol] 7.7 10*3/uL 4.4-11.0 [facility] Blood erythrocytes count (nu mber/volume)Ordered By: Dr. Torres on 05-27-2022 RBC (Bld) [#/Vol] 4.97 10*6/uL 4.6-6.2 [facility] Blood hemoglobin measurement (mass/volume)Ordered By: Dr. Torres on 05-27-2022 Hemoglobin (Bld) [Mass/Vol] 15.1 g/dL 13.0-16.5 [facility] Blood platelet mean volumeOr dered By: Dr. Torres on 05-27-2022 Platelet mean volume (Bld) [Entitic vol] 9.5 fL 6.2-12.0 [facility] Determination of erythrocyte mean corpuscular volume (MCV)Ordered By: Dr. Torres on 05-27-2022 MCV (RBC) [Entitic vol] 92.0 fL 80-94 [facility] Hematocrit Auto (Bld) [Volum e fraction]Ordered By: Dr. Torres on 05-27-2022 Hematocrit (Bld) [Volume fraction] 45.7 % 40-54 [facility] INR in Blood by Coagulation assayOrdered By: Dr. Torres on 05-27-2022 INR Coag (Bld) [Relative time] 1.2 {INR} [facility] - Chemistry and C hemistry - challengeOrdered By: Dr. Torres on 05-27-2022 CO2 [Moles/Vol] 29.0 mmol/L 21.0-32.0 [facility] Urea nitrogen/Creatinine [Mass ratio] 24.1 mg/mg 10-20 [facility] - CoagulationOrde red By: Dr. Torres on 05-27-2022 aPTT Coag (Bld) [Time] 32.1 s 24.1-36.2 [facility] PT Coag (PPP) [Time] 14.6 s 11.7-14.9 [facility] Laboratory - Hematology and Cell countsOrdered By: Dr. Torres on 05-27-2022 Erythrocyte distribution width (RBC) [Entitic vol] 44.7 fL 35.1-43.9 [facility] Erythrocyte distribution width (RBC) [Ratio] 13.2 % 11.6-14.6 [facility] MCH (RBC) [Entitic mass] 30.4 pg 27.0-32.0 [facility] MCHC Auto (RBC) [Mass/Vol]Or dered By: Dr. Torres on 05-27-2022 MCHC (RBC) [Mass/Vol] 33.0 g/dL 32-36 [facility] No Panel InformationOrdered By: Dr. Torres on 05-27-2022 Estimated GFR (MDRD) Amer 125 mL/min >60 [facility] Comment on above: GFR Calc Estimated GFR (MDRD) Non-Af Amer 104 mL/min >60 [facility] Comment on above: Non- GFR Calc Platelets bldOrdered By: Dr. Torres on 05-27-2022 Platelets (Bld) [#/Vol] 296 10*3/uL 150-450 [facility] Serum or plasma calcium shayne urement (mass/volume)Ordered By: Dr. Torres on 05-27-2022 Calcium [Mass/Vol] 9.7 mg/dL 8.5-10.1 [facility] Serum or plasma creatinine m easurement (mass/volume)Ordered By: Dr. Torres on 05-27-2022 Creatinine [Mass/Vol] 0.79 mg/dL 0.70-1.30 [facility] Comment on above: The validity of the calculated GFR & GFRAA in patients over 70 years has not been determined. Clinical correlation is essential. Serum or plasma urea nitroge n measurement (mass/volume)Ordered By: Dr. Torres on 05-27-2022 Urea nitrogen [Mass/Vol] 19 mg/dL 11-25 [facility] [facility] Thin prep Papanicolaou smear with manual screeningOrdered By: Dr. Torres on 05-27-2022 Thin prep Papanicolaou smear with manual screening 09-22 [facility] LABORATORYOrdered By: Reta Rebollar on 10-11-2021 ADMITTED TO INTENSIVE CARE UNIT FOR CONDITION OF INTEREST:FIND:PT:^PAT IENT:ORD: No (10/11/21 12:00 PM) Invalid Interpretation Code AO Auto Urine SS EMPLOYED IN A HEALTHCARE SETTING:FIND:PT:^VIDA ENT:ORD: No (10/11/21 12:00 PM) Invalid Interpretation Code AO Auto Urine SS FIRST TEST FOR CONDITION OF INTEREST:FIND:PT:^PAT IENT:ORD: No (10/11/21 12:00 PM) Invalid Interpretation Code AO Auto Urine SS HAS SYMPTOMS RELATED TO CONDITION OF INTEREST:FIND:PT:^PAT IENT:ORD: Yes (10/11/21 12:00 PM) Invalid Interpretation Code AO Auto Urine SS Illness or injury onset date and time [id number] Invalid Interpretation Code AO Auto Urine SS Patient was hospitalized because of this condition No (10/11/21 12:00 PM) Invalid Interpretation Code AO Auto Urine SS status Not (10/11/21 12:00 PM) Invalid Interpretation Code AO Auto Urine SS RESIDES IN A CONGREGATE CARE SETTING:FIND:PT:^VIDA ENT:ORD: No (10/11/21 12:00 PM) Invalid Interpretation Code AO Auto Urine SS SARS-CoV-2 (COVID-19) RNA RK+probe Ql (Resp) Negative (10/11/21 12:00 PM) Invalid Interpretation Code Negative AO Auto Urine SS SARS-CoV-2 (COVID-19) RNA RK+probe Ql (Unsp spec) Negative results do not preclude SARS-CoV-2 infection and should not be used as the sole basis for patient management decisions. Negative results must be combined with clinical observations, patient history, and epidemiological information.There is a risk of false negative values resulting from improperly collected, transported, or handled specimens.There is a risk of false negative values due to the presence of sequence variants in the pathogen targets of the assay, procedural errors, amplification inhibitors in specimens, or inadequate numbers of organisms for amplification.ROSALIO SARS-CoV-2 Assay is a Real-Time reverse-transcriptase polymerase chain reaction (RT-PCR) based qualitative in vitro diagnostic test intended for the qualitative detection of nucleic acid from the SARS-CoV-2 in nasopharyngeal swab specimens collected from individuals suspected of COVID-19 by their healthcare provider. Testing is limited to laboratories certified under the Clinical Laboratory Improvement Amendments of 1988 (CLIA), 42 U.S.C. 263a, to perform moderate and high complexity tests. Invalid Interpretation Code AO Auto Urine SS CNOVon 09-07-2017 CNOV Office Visit (AGCARDWST) -------EMIL TRONCOSO ([id number]) 1955 MDate Time Provider Department09/07/17 8:30 AM EMIL HAWK AGCARDWST During your visit today, we recorded the following information about you: Pulse Blood pressure Weight Height 64/minute 120/82 83.3 kg 1.753 Henry Hawk MD 09/07/2017 5:56 PM AddendumPERTINENT CARDIAC HISTORYChest pain - abnormal tpn-I, possible vasospasmTransient cardiomyopathy EF 25% 2006- resolvedHTNHLOSA - CPAPASHD - mild by cath 2012PericarditisDVT - DHERENCE TO GUIDELINESACE-I or ARB for HF with prior LVEF<40 (NQF 0081) - N/AASA or Plavix for ASHD (NQF 0067) - metBeta alexandra for ASHD with prior CA or prior LVEF<40 (NQF 0070) - >10 yearssince eventBeta alexandra for HF with prior LVEF<40 (NQF 0083) - N/AACE-I or ARB for ASHD with DM or prior LVEF<40 (NQF 0066) - metStatin therapy for ASHD or FHL or DM - metBMI documented and plan if >25 (NQF 0421) - lifestyle recommendation formTobacco use screening and referral (NQ 0028) - lifestyle recommendation formRecommendation for whole food, plant based diet - lifestyle recommendation formCLINICAL IMPRESSION/PLAN:Emil Troncoso is doing reasonably well. His ischemic heart disease is undergood control. He is now on losartan as lisinopril was causing a cough.I reminded him that lipid profile is due. I suggested that he discuss durationof treatment with Xi with Dr. Zepeda. 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 If there is increased chest pain orshortness of breath, he has been advised to contact me.Written and verbal health teaching given to patient, patient verbalizesunderstanding and agrees with treatment plan.DIAGNOSIS FOR VISIT:ASHDHypertensionHISTOR Y OF PRESENT ILLNESSEmil Troncoso returns for follow-up of multiple cardiac issues, as notedabove.He has had no recent chest discomfort. He reports that he recently hadbronchitis. Exercise tolerance has been stable. He's had no edema, syncope,palpitations, TIAs, amaurosis or claudication.ALLERGIES:ALLER GIESAllergen Reactions- Bees Anaphylaxis- Duricef [Cefadroxil] Rash- Niaspan [Niacin] Unknown- Trinilin [Other] RashCURRENT OUTPATIENT MEDICATIONS:losartan (COZAAR) 50 mg tablet Take 50 mg by mouth once daily.verapamil ER 180 mg 24 hr capsule TAKE 1 CAPSULE BY MOUTH ONCE DAILY.apixaban (ELIQUIS) 5 mg tab tab(s) Take 5 mg by mouth twice daily.BUDESONIDE (PULMICORT INHALATION) Inhale 2 Puffs as instructed every morning.albuterol HFA (PROAIR HFA) 90 mcg/actuation inhaler Inhale 2 Puffs asinstructed every 4 hours as needed.rosuvastatin (CRESTOR) 10 mg tablet Take 5 mg by mouth daily at bedtime.pantoprazole (PROTONIX) 40 mg tablet Take 1 tablet by mouth once daily.nitroglycerin sublingual 0.4 mg SL tablet Dissolve 1 tablet under the tongue asneeded. FOR CHEST PAIN. IF NO RELIEF CALL 911Aspirin 81 mg Tab Take 81 mg by mouth.MULTI-VITAMIN ORAL Take by mouth once daily.PHYSICAL EXAMINATION:VITAL SIGNS: BP 120/82 Pulse 64 Ht 5' 9 (1.75m) Wt 183 lb 9.6 oz(83.3kg) BMI 27.10 kg/(m2).Chest: Clear to percussion and auscultation. Trachea is midline. Air entry isequal. Cardiac: Regular rhythm. S1 and S2 are normal. PMI is nondisplaced.There are no murmurs, rubs or gallops. Carotids are brisk without bruits.JVP is less than 10 cm. Abdomen: Soft and nontender. There are no pulsatilemasses or bruits. No liver enlargement. Bowel sounds are active.Extremities: Trace edema. Pulses are intact and symmetrical.Recent labs reviewed. Renal function is normal. LDL was 92.Electronically Signed:Arminda Vincent 2017 8:46 [facility]: Juan Salas MD 09/07/2017 8:46 AM SignedLIFESTYLE CHANGEA healthy lifestyle is the most important component of your overall treatmentplan. Please give serious thought to the following areas and commit to makinglong term changes.EAT A WHOLE FOOD, PLANT BASED DIETThe nutrition your body gets is more important than the medicine you take.What matters most is the overall way you eat. We encourage you to minimize theuse of animal products (which include dairy and all meats except fatty fish)and use whole, unprocessed plant foods to provide your protein, vitamins andother nutrients. We have a lot of information to share with you on this topic. We also hold Shared Medical Appointments, where you can come visit with in the company of other patients and spend over an hour talking aboutthe challenges of changing the way you eat. This is not a diet. It is a wayof life that you will keep with you.EXERCISE REGULARLYIt is not important to spend hours in the gym, lifting weights and perspiringheavily. A total of 2-3 hours per week of aerobic (causing you to bemoderately short of breath) exercise is sufficient to improve your health.Talk to us before you begin a new exercise program, if you have heart diseaseor experience shortness of breath or chest pain.REDUCE STRESSChronic emotional and physical stress leads to disease. Ways of reducingstress include meditation, visualization, prayer, yoga and other forms ofrelaxation therapy. Consistency is the perales. Find a technique that works foryou and do it every day.CULTIVATE RELATIONSHIPSLoneliness and isolation have a major negative impact on health. Seek outothers who can love, care for and nurture you. Avoid hurtful relationships.MAINTAIN IDEAL BODY WEIGHTThe best way to do this is to do all the things above. Our bodies naturallyfind the right weight if we keep moving and feed ourselves the right food. Ifyour BMI is greater than 25, we strongly recommend a referral to a weightmanagement program. Please speak to us or your family physician aboutavailable programs.AVOID NICOTINE IN ALL FORMSThis includes all tobacco products, whether chewed, smoked, vaped, or rubbed onthe skin. Smoking cessation programs, which can make use of tobaccosubstitutes, medications to suppress cravings and behavior management, areavailable. Please contact your family physician about programs in your area.Referring Provider: EMIL HAWK [[id number]]Allergies As of Date: 09/07/2017 Noted Allergy ReactionBEES 09/07/2017 10 - AnaphylaxisDURICEF (CEFADROXIL) 11/06/2006 2 - RashNIASPAN (NIACIN) 02/19/2012 16 - Unknowntrinilin [Other] 11/06/2006 2 - RashDate Reviewed: 09/07/2017Reviewed by: Viviana Esteban - Fully AssessedReason for Visit: Follow Up [171]Primary Visit Diagnosis:ASHD (arteriosclerotic heart disease) [I25.10] Other Visit Diagnosis:Hypertension, essential [I10]Prescriptions as of 09/07/2017 Sig: LOSARTAN 50 MG [...] * MULTI-VITAMIN ORAL Take by mouth once daily.Problem List As Of Date 09/07/2017 Noted Resolved Hemorrhage of gastrointestinal tract, unspecifi*INVALID FOR*08/17/2014 Talamantes's esophagus [K22.70] INVALID FOR*08/17/2014 Special screening for malignant neoplasms, colo*INVALID FOR*03/09/2015 Other instructions from your clinician: LIFESTYLE CHANGE A healthy lifestyle is the most important component of your overall treatment plan. Please give serious thought to the following areas and commit to making long term care administrator changes. EAT A WHOLE FOOD, PLANT BASED [...] your family physician about programs in your area.Medications Discontinued During This Encounter lisinopril (PRINIVIL) 10 mg tablet 30 t* 11 03/09/2017 09/07/2017 Route: ORAL Sig: Take 1 tablet by mouth once daily. Patient not taking: Reported on 09/07/2017 Disc: Reason for discontinue is not on file. Status:Closed by EMIL HAWK MD on 09/07/17 [facility] PROGRESSon 09-07-2017 Protein mass conc HNO ID: [id number] thor: Emil Calderon: (none)Author Type: PhysicianType: Progress NotesFiled: 09/07/2017 5:56 PMNote Text:PERTINENT CARDIAC HISTORYChest pain - abnormal tpn-I, possible vasospasmTransient cardiomyopathy EF 25% 2006- resolvedHTNHLOSA - CPAPASHD - mild by cath 2012PericarditisDVT - 8/DHERENCE TO GUIDELINESACE-I or ARB for HF with prior LVEF<40 (NQF 0081) - N/AASA or Plavix for ASHD (NQF 0067) - metBeta alexandra for ASHD with prior CA or prior LVEF<40 (NQF 0070) - >10years since eventBeta alexandra for HF with prior LVEF<40 (NQF 0083) - N/AACE-I or ARB for ASHD with DM or prior LVEF<40 (NQF 0066) - metStatin therapy for ASHD or FHL or DM - metBMI documented and plan if >25 (NQF 0421) - lifestyle recommendation formTobacco use screening and referral (NQF 0028) - lifestyle recommendationformRecommenda tion for whole food, plant based diet - lifestyle recommendationformCLINICAL IMPRESSION/PLAN:Emil Troncoso is doing reasonably well. His ischemic heart disease isunder good control. He is now on losartan as lisinopril was causing acough.I reminded him that lipid profile is due. I suggested that he discussduration of treatment with Xi with Dr. Zepeda. He apparently has hadrecurrent DVTs and may need this for long term care administrator.I will see him in 8 months or as needed. If there is increased chest painor shortness of breath, he has been advised to contact me.Written and verbal health teaching given to patient, patient verbalizesunderstanding and agrees with treatment plan.DIAGNOSIS FOR VISIT:ASHDHypertensionHISTOR Y OF PRESENT ILLNESSEmil Troncoso returns for follow-up of multiple cardiac issues, as notedabove.He has had no recent chest discomfort. He reports that he recently hadbronchitis. Exercise tolerance has been stable. He's had no edema,syncope, palpitations, TIAs, amaurosis or claudication.ALLERGIES:ALLER GIESAllergen Reactions- Bees Anaphylaxis- Duricef [Cefadroxil] Rash- Niaspan [Niacin] Unknown- Trinilin [Other] RashCURRENT OUTPATIENT MEDICATIONS:losartan (COZAAR) 50 mg tablet Take 50 mg by mouth once daily.verapamil ER 180 mg 24 hr capsule TAKE 1 CAPSULE BY MOUTH ONCE DAILY.apixaban (ELIQUIS) 5 mg tab tab(s) Take 5 mg by mouth twice daily.BUDESONIDE (PULMICORT INHALATION) Inhale 2 Puffs as instructed everymorning.albuterol HFA (PROAIR HFA) 90 mcg/actuation inhaler Inhale 2 Puffs asinstructed every 4 hours as needed.rosuvastatin (CRESTOR) 10 mg tablet Take 5 mg by mouth daily at bedtime.pantoprazole (PROTONIX) 40 mg tablet Take 1 tablet by mouth once daily.nitroglycerin sublingual 0.4 mg SL tablet Dissolve 1 tablet under thetongue as needed. FOR CHEST PAIN. IF NO RELIEF CALL 911Aspirin 81 mg Tab Take 81 mg by mouth.MULTI-VITAMIN ORAL Take by mouth once daily.PHYSICAL EXAMINATION:VITAL SIGNS: BP 120/82 Pulse 64 Ht 5' 9 (1.75m) Wt 183 lb 9.6 oz(83.3kg) BMI 27.10 kg/(m2).Chest: Clear to percussion and auscultation. Trachea is midline. Airentry is equal. Cardiac: Regular rhythm. S1 and S2 are normal. PMI isnondisplaced. There are no murmurs, rubs or gallops. Carotids are briskwithout bruits. JVP is less than 10 cm. Abdomen: Soft and nontender.There are no pulsatile masses or bruits. No liver enlargement. Bowelsounds are active. Extremities: Trace edema. Pulses are intact andsymmetrical.Recent labs reviewed. Renal function is normal. LDL was 92.Electronically Signed:Arminda Vincent 2017 8:46 [facility]: Yaz Zepeda MD [facility] CNOVon 03-09-2017 CNOV Office Visit (AGCARDWST) -------EMIL TRONCOSO ([id number]) 1955 [facility] Time Provider Lpjtcxsywa35/30/17 9:00 AM EMIL HAWK AGCARDWST During your visit today, we recorded the following information about you: Pulse Blood pressure Weight Height 64/minute 146/98 83.6 kg 1.753 Henry Hawk MD 03/09/2017 6:06 PM SignedPERTINENT CARDIAC HISTORYChest pain - abnormal tpn-I, possible vasospasmTransient cardiomyopathy EF 25% 2005- resolvedHTNHLOSA - CPAPASHD - mild by cath 2011PericarditisDVT - DHERENCE TO GUIDELINESACE-I or ARB for HF with prior LVEFANDlt;40 (NQF 0081) - N/AASA or Plavix for ASHD (NQF 0067) - metBeta alexandra for ASHD with prior CA or prior LVEFANDlt;40 (NQF 0070) - ANDgt;10years since eventBeta alexandra for HF with prior LVEFANDlt;40 (NQF 0083) - N/AACE-I or ARB for ASHD with DM or prior LVEFANDlt;40 (NQF 0066) - metStatin therapy for ASHD or FHL or DM - metBMI documented and plan if ANDgt;25 (NQF 0421) - lifestyle recommendation formTobacco use screening and referral (NQF 0028) - lifestyle recommendation formRecommendation for whole food, plant based diet - lifestyle recommendation formCLINICAL IMPRESSION/PLAN:Emil Troncoso has intermittent chest discomfort which is atypical forischemia, but may indicate some residual pericardial inflammation. I haveencouraged him to use ibuprofen cautiously, as he is now on anticoagulation andhad a GI bleed earlier in the spring. That was attributed to diverticulitis.He has been encouraged to use nitroglycerin on a trial basis if he hasrecurrent pain. If he goes back on ibuprofen, I would discontinue his aspirin.Blood pressure is elevated today. He has been advised to start lisinopril 10milligrams daily and have basic profile done in 2 weeks.I will see him in 6 months or as needed. If there is increase in his chest painpattern, he's been advised to contact me.Written and verbal health teaching given to patient, patient verbalizesunderstanding and agrees with treatment plan.This note was generated using [employer] voice recognition system, and there may besome incorrect words, spellings, and punctuation that were not noted inchecking the note before saving.DIAGNOSIS FOR VISIT:PericarditisHypertensi onHISTORY OF PRESENT ILLNESSEmil Troncoso returns for follow-up of his pericardial disease, hypertensionand mild coronary disease.He reports that he has had intermittent episodes of sharp central chest painwhich occasionally radiate into the right arm and left leg. These occur atrandom. He is not on back on ibuprofen. They have been infrequent but sometimesintense. They can wax and wane for several hours.He reports that he has been under recent family stress. He feels that he mighthave a flu bug today. He's had a recent hospitalization for confusion, andneurologic evaluation was unrevealing.He's had no orthopnea or edema. He denies syncope, palpitations, TIAs,amaurosis and claudication.He was recently started on Eliquis because of a DVT. This will be a lifelongcommitment as these have recurred. He reports stable exercise tolerance.ALLERGIES:BRIANA Ellis Reactions- Duricef [Cefadroxil] Rash- Niaspan [Niacin] Unknown- Trinilin [Other] RashCURRENT OUTPATIENT MEDICATIONS:apixaban (ELIQUIS) 5 mg tab tab(s) Take 5 mg by mouth twice daily.verapamil ER 180 mg 24 hr capsule TAKE 1 CAPSULE BY MOUTH ONCE DAILY.BUDESONIDE (PULMICORT INHALATION) Inhale 2 Puffs as instructed every morning.albuterol HFA (PROAIR HFA) 90 mcg/actuation inhaler Inhale 2 Puffs asinstructed every 4 hours as needed.rosuvastatin (CRESTOR) 10 mg tablet Take 5 mg by mouth daily at bedtime.pantoprazole (PROTONIX) 40 mg tablet Take 1 tablet by mouth once daily.nitroglycerin sublingual 0.4 mg SL tablet Dissolve 1 tablet under the tongue asneeded. FOR CHEST PAIN. IF NO RELIEF CALL 911Aspirin 81 mg Tab Take 81 mg by mouth.MULTI-VITAMIN ORAL Take by mouth once daily.PAST MEDICAL HISTORYDiagnosis Date- Abdominal pain, left lower quadrant- Acute myocardial infarction, unspecified site, episode of care [id number]- Arrhythmia- Talamantes's esophagus 2012- Chronic obstructive pulmonary disease (COPD) (HCC)- Coronary artery disease- Essential hypertension, benign- Hemorrhage of gastrointestinal tract, unspecified- Hx of blood clots- Migraines- Other and unspecified hyperlipidemia- Sleep apnea 01/2015- SnoringPAST SURGICAL HISTORYProcedure Laterality Date- APPENDECTOMY- COLONOSCOP W/ OR W/O [facility] SPEC 02/27/2012 Colonoscopy repeat 3 years- COLONOSCOP W/ OR W/O [facility] SPEC 03/09/15 Colonoscopy- EGD W/O OR W/BRUSH/WASH 09/28/12 EGD- EGD W/O OR W/BRUSH/WASH 08/17/2014 EGD- LAP REPAIR INTIAL INGUINAL HERNIA 11/30/06- PAST SURGICAL HISTORY OF left kneeFAMILY HISTORYProblem Relation Age of Onset- Cancer Brother prostate- Cancer Father stomach- Coronary Artery Disease Father- Coronary Artery Disease Mother- Diabetes Mother- Diabetes Brother- Hearing Loss Father- Heart Father- Heart Mother- Hypertension Mother- Hypertension Father- Prostate Cancer Brother- Psychiatry Sister- Stroke MotherSocial History Marital status: Spouse name: Destiney Years of education: Number of children: 2Occupational 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 Cardiac: As noted above. GI: No melena.: No dysuria. Musculoskeletal: No myalgias.PHYSICAL EXAMINATION: S/he is alert and in no distress.VITAL SIGNS: BP 146/98 Pulse 64 Ht 5' 9ANDquot; (1.75m) Wt 184 lb 6.4 oz(83.6kg) BMI 27.22 kg/(m2).SHEENT: Skin is warm and dry. No xanthelasmas appreciated. Pharynx isbenign. There is no oral cyanosis. Neck: supple. No adenopathy or thyroidenlargement. Chest: Clear to percussion and auscultation. Trachea is midline. Air entry is equal. There is no chest wall tenderness. Cardiac: Regularrhythm. S1 and S2 are normal. PMI is nondisplaced. There are no murmurs,rubs or gallops. No click is heard. Carotids are brisk without bruits. JVPis less than 10 cm. Abdomen: Soft and nontender. There are no pulsatilemasses or bruits. No liver enlargement. Bowel sounds are active.Extremities: Trace edema. There are venous varicosities. Pulses are intact andsymmetrical. No clubbing or cyanosis. No femoral bruits. Neurologic: Grosslynormal motor and sensory. S/he is alert and oriented x4.EKG shows sinus rhythm. There is early R-wave progression, but no significantchange. There is no evidence of ischemia.Recent labs were reviewed. Renal function is normal. TSH was normal.Electronically Signed:Emil Hawk MDMarch 09, 2017 9:18 [facility]:Juan Salas MD 03/09/2017 9:20 AM SignedStart lisinopril 10 mg Maddy us with BP readings in one weekHave blood test done in 2 weeksLIFESTYLE CHANGEA healthy lifestyle is the most important component of your overall treatmentplan. Please give serious thought to the following areas and commit to makinglong term changes.EAT A WHOLE FOOD, PLANT BASED DIETThe nutrition your body gets is more important than the medicine you take.What matters most is the overall way you eat. We encourage you to minimize theuse of animal products (which include dairy and all meats except fatty fish)and use whole, unprocessed plant foods to provide your protein, vitamins andother nutrients. We have a lot of information to share with you on this topic. We also hold Shared Medical Appointments, where you can come visit with in the company of other patients and spend over an hour talking aboutthe challenges of changing the way you eat. This is not a ANDquot;dietANDquot;.It is a way of life that you will keep with you.EXERCISE REGULARLYIt is not important to spend hours in the gym, lifting weights and perspiringheavily. A total of 2-3 hours per week of aerobic (causing you to bemoderately short of breath) exercise is sufficient to improve your health.Talk to us before you begin a new exercise program, if you have heart diseaseor experience shortness of breath or chest pain.REDUCE STRESSChronic emotional and physical stress leads to disease. Ways of reducingstress include meditation, visualization, prayer, yoga and other forms ofrelaxation therapy. Consistency is the perales. Find a technique that works foryou and do it every day.CULTIVATE RELATIONSHIPSLoneliness and isolation have a major negative impact on health. Seek outothers who can love, care for and nurture you. Avoid hurtful relationships.MAINTAIN IDEAL BODY WEIGHTThe best way to do this is to do all the things above. Our bodies naturallyfind the right weight if we keep moving and feed ourselves the right food. Ifyour BMI is greater than 25, we strongly recommend a referral to a weightmanagement program. Please speak to us or your family physician aboutavailable programs.AVOID NICOTINE IN ALL FORMSThis includes all tobacco products, whether chewed, smoked, vaped, or rubbed onthe skin. Smoking cessation programs, which can make use of tobaccosubstitutes, medications to suppress cravings and behavior management, areavailable. Please contact your family physician about programs in your area.Omid Byrne, RN, RN 03/10/2017 9:06 AM SignedCopy of OV note mailed to Dr. Zepeda's office.Referring Provider: EMIL HAWK [[id number]]Allergies As of Date: 03/09/2017 Noted Allergy ReactionDURICEF (CEFADROXIL) 11/06/2006 2 - RashNIASPAN (NIACIN) 02/19/2012 16 - Unknowntrinilin [Other] 11/06/2006 2 - RashDate Reviewed: 03/09/2017Reviewed by: Omid Short) REBECA Byrne - Fully AssessedReason for Visit: Follow Up [171] Cmt: 6 monthPrimary Visit Diagnosis:Idiopathic pericarditis, unspecified chronicity [I30.0] Other Visit Diagnoses:Hypertension, essential [I10] ASHD (arteriosclerotic heart disease) [I25.10]Order(s):ECG B/O W INTERP (MED OFFICE) [ECG06] Order #: [id number] lisinopril (PRINIVIL) 10 mg tabletTake 1 tablet by mouth once daily.Disp: 30 tabletRfl: 11 BASIC METABOLIC PNL [SQBMP] Order #: [id number] FUTUREPrescriptions as of 03/09/2017 Sig: APIXABAN 5 MG TABLET Take 5 mg by mouth twice mikaela* VERAPAMIL ER 180 MG 24 HR CAP* TAKE 1 CAPSULE BY MOUTH ONCE * PULMICORT INHALATION Inhale 2 Puffs as instructed [...] MULTI-VITAMIN ORAL Take by mouth once daily. LISINOPRIL 10 MG TABLET Take 1 tablet by mouth once d*Problem List As Of Date 03/09/2017 Noted Resolved Hemorrhage of gastrointestinal tract, unspecifi*INVALID FOR*08/17/2014 Talamantes's esophagus [K22.70] INVALID FOR*08/17/2014 Special screening for malignant neoplasms, colo*INVALID FOR*03/09/2015 Other instructions from your clinician: Start lisinopril 10 mg julio cesar Call us with BP readings in one week Have blood test done in 2 weeks LIFESTYLE CHANGE A healthy lifestyle is the most important component of your overall treatment plan. Please give serious thought to the following areas and commit to making long term care administrator changes. EAT A WHOLE FOOD, PLANT BASED [...] your family physician about programs in your area.Visit Notes:>> Omid Short) REBECA Byrne Mar 10, 2017 9:06 AM Status: SignedCopy of OV note mailed to Dr. Zepeda's office.Prescriptions ordered this encounter Disp Refills Start End LISINOPRIL 10 MG TABLET 30 t* 11 03/09/2017 Route: ORAL Sig: Take 1 tablet by mouth once daily.Classic SmartForms filed during this visit:Extended VitalsEncounter Number: [id number] Status:Closed by EMIL HAWK MD on 03/09/[address] [facility] PROGRESSon 03-09-2017 Protein mass conc HNO ID: [id number] thor: Emil Calderon: (none)Author Type: PhysicianType: Progress NotesFiled: 03/09/2017 6:06 PMNote Text:PERTINENT CARDIAC HISTORYChest pain - abnormal tpn-I, possible vasospasmTransient cardiomyopathy EF 25% 2005- resolvedHTNHLOSA - CPAPASHD - mild by cath 2011PericarditisDVT - DHERENCE TO GUIDELINESACE-I or ARB for HF with prior LVEF<40 (NQF 0081) - N/AASA or Plavix for ASHD (NQF 0067) - metBeta alexandra for ASHD with prior CA or prior LVEF<40 (NQF 0070) - >10years since eventBeta alexandra for HF with prior LVEF<40 (NQF 0083) - N/AACE-I or ARB for ASHD with DM or prior LVEF<40 (NQF 0066) - metStatin therapy for ASHD or FHL or DM - metBMI documented and plan if >25 (NQF 0421) - lifestyle recommendation formTobacco use screening and referral (NQF 0028) - lifestyle recommendationformRecommenda tion for whole food, plant based diet - lifestyle recommendationformCLINICAL IMPRESSION/PLAN:Emil Troncoso has intermittent chest discomfort which is atypical forischemia, but may indicate some residual pericardial inflammation. I haveencouraged him to use ibuprofen cautiously, as he is now onanticoagulation and had a GI bleed earlier in the spring. That wasattributed to diverticulitis.He has been encouraged to use nitroglycerin on a trial basis if he hasrecurrent pain. If he goes back on ibuprofen, I would discontinue hisaspirin.Blood pressure is elevated today. He has been advised to start drzpnoxlbj45 milligrams daily and have basic profile done in 2 weeks.I will see him in 6 months or as needed. If there is increase in his chestpain pattern, he's been advised to contact me.Written and verbal health teaching given to patient, patient verbalizesunderstanding and agrees with treatment plan.This note was generated using [employer] voice recognition system, and theremay be some incorrect words, spellings, and punctuation that were notnoted in checking the note before saving.DIAGNOSIS FOR VISIT:PericarditisHypertensi onHISTORY OF PRESENT ILLNESSEmil Troncoso returns for follow-up of his pericardial disease,hypertension and mild coronary disease.He reports that he has had intermittent episodes of sharp central chestpain which occasionally radiate into the right arm and left leg. Theseoccur at random. He is not on back on ibuprofen. They have been infrequentbut sometimes intense. They can wax and wane for several hours.He reports that he has been under recent family stress. He feels that hemight have a flu bug today. He's had a recent hospitalization forconfusion, and neurologic evaluation was unrevealing.He's had no orthopnea or edema. He denies syncope, palpitations, TIAs,amaurosis and claudication.He was recently started on Eliquis because of a DVT. This will be alifelong commitment as these have recurred. He reports stable exercisetolerance.ALLERGIES: ALLERGIESAllergen Reactions- Duricef [Cefadroxil] Rash- Niaspan [Niacin] Unknown- Trinilin [Other] RashCURRENT OUTPATIENT MEDICATIONS:apixaban (ELIQUIS) 5 mg tab tab(s) Take 5 mg by mouth twice daily.verapamil ER 180 mg 24 hr capsule TAKE 1 CAPSULE BY MOUTH ONCE DAILY.BUDESONIDE (PULMICORT INHALATION) Inhale 2 Puffs as instructed everymorning.albuterol HFA (PROAIR HFA) 90 mcg/actuation inhaler Inhale 2 Puffs asinstructed every 4 hours as needed.rosuvastatin (CRESTOR) 10 mg tablet Take 5 mg by mouth daily at bedtime.pantoprazole (PROTONIX) 40 mg tablet Take 1 tablet by mouth once daily.nitroglycerin sublingual 0.4 mg SL tablet Dissolve 1 tablet under thetongue as needed. FOR CHEST PAIN. IF NO RELIEF CALL 911Aspirin 81 mg Tab Take 81 mg by mouth.MULTI-VITAMIN ORAL Take by mouth once daily.PAST MEDICAL HISTORYDiagnosis Date- Abdominal pain, left lower quadrant- Acute myocardial infarction, unspecified site, episode of careunspecified 2004- Arrhythmia- Talamantes's esophagus 2012- Chronic obstructive pulmonary disease (COPD) (HCC)- Coronary artery disease- Essential hypertension, benign- Hemorrhage of gastrointestinal tract, unspecified- Hx of blood clots- Migraines- Other and unspecified hyperlipidemia- Sleep apnea 01/2015- SnoringPAST SURGICAL HISTORYProcedure Laterality Date- APPENDECTOMY- COLONOSCOP W/ OR W/O [facility] SPEC 02/27/2012 Colonoscopy repeat 3 years- COLONOSCOP W/ OR W/O [facility] SPEC 03/09/15 Colonoscopy- EGD W/O OR W/BRUSH/WASH 09/28/12 EGD- EGD W/O OR W/BRUSH/WASH 08/17/2014 EGD- LAP REPAIR INTIAL INGUINAL HERNIA 11/30/06- PAST SURGICAL HISTORY OF left kneeFAMILY HISTORYProblem Relation Age of Onset- Cancer Brother prostate- Cancer Father stomach- Coronary Artery Disease Father- Coronary Artery Disease Mother- Diabetes Mother- Diabetes Brother- Hearing Loss Father- Heart Father- Heart Mother- Hypertension Mother- Hypertension Father- Prostate Cancer Brother- Psychiatry Sister- Stroke MotherSocial History Marital status: Spouse name: Destiney Years of education: Number of children: 2Occupational 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 Respiratory: No productive cough. Cardiac: As noted above. GI: Nomelena. : No dysuria. Musculoskeletal: No myalgias.PHYSICAL EXAMINATION: S/he is alert and in no distress.VITAL SIGNS: BP 146/98 Pulse 64 Ht 5' 9 (1.75m) Wt 184 lb 6.4 oz(83.6kg) BMI 27.22 kg/(m2).SHEENT: Skin is warm and dry. No xanthelasmas appreciated. Pharynx isbenign. There is no oral cyanosis. Neck: supple. No adenopathy orthyroid enlargement. Chest: Clear to percussion and auscultation.Trachea is midline. Air entry is equal. There is no chest walltenderness. Cardiac: Regular rhythm. S1 and S2 are normal. PMI isnondisplaced. There are no murmurs, rubs or gallops. No click is heard.Carotids are brisk without bruits. JVP is less than 10 cm. Abdomen: Softand nontender. There are no pulsatile masses or bruits. No liverenlargement. Bowel sounds are active. Extremities: Trace edema. Thereare venous varicosities. Pulses are intact and symmetrical. No clubbingor cyanosis. No femoral bruits. Neurologic: Grossly normal motor andsensory. S/he is alert and oriented x4.EKG shows sinus rhythm. There is early R-wave progression, but nosignificant change. There is no evidence of ischemia.Recent labs were reviewed. Renal function is normal. TSH was normal.Electronically Signed:Emil Hawk MDUniversity Of Michigan Health 2016 9:18 [facility]:Yaz Zepeda MD [facility] Vital Signs Date Time Vital Sign Value Performing Clinician Faci lity 01-13-2025 06:52-0400 Body mass index (BMI) [Ratio] 25.4 kg/m2 Dr. Yaz Zepeda MD Work Phone: [facility] 01-13-2025 06:52-0400 Body weight 78.[address] Yaz Zepeda MD Work Phone: [facility] 01-13-2025 06:52-0400 Diastolic blood pressure 75 mm[Hg] Dr. Yaz Zepeda MD Work Phone: [facility] 01-13-2025 06:52-0400 Heart rate 65 /min Dr. Yaz Zepeda MD Work Phone: [facility] 01-13-2025 06:52-0400 Respiratory rate 18 /min Dr. Yaz Zepeda MD Work Phone: [facility] 01-13-2025 06:52-0400 SaO2% (BldA) [Mass fraction] 97 % Dr. Yaz Zepeda MD Work Phone: [facility] 01-13-2025 06:52-0400 Systolic blood pressure 117 mm[Hg] Dr. Yaz Zepeda MD Work Phone: [facility] 01-10-2025 23:00-0400 Body temperature 98 [degF] Dr. Yaz Zepeda MD Work Phone: [facility] 01-10-2025 23:00-0400 Diastolic blood pressure 71 mm[Hg] Dr. Yaz Zepeda MD Work Phone: [facility] 01-10-2025 23:00-0400 Heart rate 60 /min Dr. Yaz Zepeda MD Work Phone: [facility] 01-10-2025 23:00-0400 Respiratory rate 18 /min Dr. Yaz Zepeda MD Work Phone: [facility] 01-10-2025 23:00-0400 SaO2% (BldA) [Mass fraction] 98 % Dr. Yaz Zepeda MD Work Phone: [facility] 01-10-2025 23:00-0400 Systolic blood pressure 142 mm[Hg] Dr. Yaz Zepeda MD Work Phone: [facility] 01-10-2025 17:04-0400 Body height 175.[address] Yaz Zepeda MD Work Phone: [facility] 01-10-2025 17:04-0400 Body mass index (BMI) [Ratio] 26.1 kg/m2 Dr. Yaz Zepeda MD Work Phone: [facility] 01-10-2025 17:04-0400 Body weight 80.[address] Yaz Zepeda MD Work Phone: [facility] 12-06-2024 08:26-0400 Body height 175.[address] Yaz Zepeda MD Work Phone: [facility] 12-06-2024 08:26-0400 Body weight 80.[address] Yaz Zepeda MD Work Phone: [facility] 12-01-2024 13:35-0400 Body height 175.[address] Yaz Zepeda MD Work Phone: [facility] 12-01-2024 13:35-0400 Body mass index (BMI) [Ratio] 26.7 kg/m2 Dr. Yaz Zepeda MD Work Phone: [facility] 12-01-2024 13:35-0400 Body weight 82.[address] Yaz Zepeda MD Work Phone: [facility] 12-01-2024 13:35-0400 Diastolic blood pressure 75 mm[Hg] Dr. Yaz Zepeda MD Work Phone: [facility] 12-01-2024 13:35-0400 Heart rate 62 /min Dr. Yaz Zepeda MD Work Phone: [facility] 12-01-2024 13:35-0400 Respiratory rate 16 /min Dr. Yaz Zepeda MD Work Phone: [facility] 12-01-2024 13:35-0400 Systolic blood pressure 128 mm[Hg] Dr. Yaz Zepeda MD Work Phone: [facility] 12-01-2024 13:18-0400 Body mass index (BMI) [Ratio] 26.7 kg/m2 Dr. Yaz Zepeda MD Work Phone: [facility] 12-01-2024 13:18-0400 Body weight 82.[address] Yaz Zepeda MD Work Phone: [facility] 12-01-2024 13:18-0400 Diastolic blood pressure 75 mm[Hg] Dr. Yaz Zepeda MD Work Phone: [facility] 12-01-2024 13:18-0400 Heart rate 62 /min Dr. Yaz Zepeda MD Work Phone: [facility] 12-01-2024 13:18-0400 Respiratory rate 16 /min Dr. Yaz Zepeda MD Work Phone: [facility] 12-01-2024 13:18-0400 Systolic blood pressure 128 mm[Hg] Dr. Yaz Zepeda MD Work Phone: [facility] 11-15-2024 10:27-0400 Body height 175.[address] Yaz Zepeda MD Work Phone: [facility] 11-15-2024 10:27-0400 Body mass index (BMI) [Ratio] 26.2 kg/m2 Dr. Yaz Zepeda MD Work Phone: [facility] 11-15-2024 10:27-0400 Body weight 80.[address] Yaz Zepeda MD Work Phone: [facility] 11-15-2024 10:27-0400 Diastolic blood pressure 64 mm[Hg] Dr. Yaz Zepeda MD Work Phone: [facility] 11-15-2024 10:27-0400 Heart rate 70 /min Dr. Yaz Zepeda MD Work Phone: [facility] 11-15-2024 10:27-0400 Respiratory rate 16 /min Dr. Yaz Zepeda MD Work Phone: [facility] 11-15-2024 10:27-0400 Systolic blood pressure 97 mm[Hg] Dr. Yaz Zepeda MD Work Phone: [facility] 11-08-2024 12:29-0400 Diastolic blood pressure 70 mm[Hg] Dr. Yaz Zepeda MD Work Phone: [facility] 11-08-2024 12:29-0400 Heart rate 74 /min Dr. Yaz Zepeda MD Work Phone: [facility] 11-08-2024 12:29-0400 SaO2% (BldA) [Mass fraction] 98 % Dr. Yaz Zepeda MD Work Phone: [facility] 11-08-2024 12:29-0400 Systolic blood pressure 126 mm[Hg] Dr. Yaz Zepeda MD Work Phone: [facility] 11-08-2024 12:26-0400 Body mass index (BMI) [Ratio] 26.2 kg/m2 Dr. Yaz Zepeda MD Work Phone: [facility] 11-08-2024 12:12-0400 Body weight 80.[address] Yaz Zepeda MD Work Phone: [facility] 11-02-2024 11:24-0400 Body temperature 97.9 [degF] Dr. Yza Zepeda MD Work Phone: [facility] 11-02-2024 11:24-0400 Diastolic blood pressure 68 mm[Hg] Dr. Yaz Zepeda MD Work Phone: [facility] 11-02-2024 11:24-0400 Heart rate 68 /min Dr. Yaz Zepeda MD Work Phone: [facility] 11-02-2024 11:24-0400 Respiratory rate 18 /min Dr. Yaz Zepeda MD Work Phone: [facility] 11-02-2024 11:24-0400 SaO2% (BldA) [Mass fraction] 97 % Dr. Yaz Zepeda MD Work Phone: [facility] 11-02-2024 11:24-0400 Systolic blood pressure 119 mm[Hg] Dr. Yaz Zepeda MD Work Phone: [facility] 11-02-2024 08:42-0400 Body temperature 97.6 [degF] Dr. Yaz Zepeda MD Work Phone: [facility] 11-02-2024 08:42-0400 Diastolic blood pressure 56 mm[Hg] Dr. Yaz Zepeda MD Work Phone: [facility] 11-02-2024 08:42-0400 Heart rate 62 /min Dr. Yaz Zepeda MD Work Phone: [facility] 11-02-2024 08:42-0400 Respiratory rate 14 /min Dr. Yaz Zepeda MD Work Phone: [facility] 11-02-2024 08:42-0400 SaO2% (BldA) [Mass fraction] 99 % Dr. Yaz Zepeda MD Work Phone: [facility] 11-02-2024 08:42-0400 Systolic blood pressure 123 mm[Hg] Dr. Yaz Zepeda MD Work Phone: [facility] 11-02-2024 06:00-0400 Body mass index (BMI) [Ratio] 26.6 kg/m2 Dr. Yaz Zepeda MD Work Phone: [facility] 11-02-2024 06:00-0400 Body weight [address] Yaz Zepeda MD Work Phone: [facility] 11-02-2024 03:21-0400 Body temperature 98 [degF] Dr. Yaz Zepeda MD Work Phone: [facility] 11-02-2024 03:21-0400 Diastolic blood pressure 76 mm[Hg] Dr. Yaz Zepeda MD Work Phone: [facility] 11-02-2024 03:21-0400 Heart rate 69 /min Dr. Yaz Zepeda MD Work Phone: [facility] 11-02-2024 03:21-0400 Respiratory rate 18 /min Dr. Yaz Zepeda MD Work Phone: [facility] 11-02-2024 03:21-0400 SaO2% (BldA) [Mass fraction] 95 % Dr. Yaz Zepeda MD Work Phone: [facility] 11-02-2024 03:21-0400 Systolic blood pressure 135 mm[Hg] Dr. Yaz Zepeda MD Work Phone: [facility] 11-01-2024 21:20-0400 Inhaled oxygen flow rate 1 L/min Dr. Yaz Zepeda MD Work Phone: [facility] 11-01-2024 17:47-0400 Body height 175.[address] Yaz Zepeda MD Work Phone: [facility] 10-13-2024 07:49-0400 Body height 175.[address] Yaz Zepeda MD Work Phone: [facility] 10-13-2024 07:49-0400 Body mass index (BMI) [Ratio] 26.2 kg/m2 Dr. Yaz Zepeda MD Work Phone: [facility] 10-13-2024 07:49-0400 Body weight 80.[address] Yaz Zepeda MD Work Phone: [facility] 10-13-2024 07:49-0400 Diastolic blood pressure 77 mm[Hg] Dr. Yaz Zepeda MD Work Phone: [facility] 10-13-2024 07:49-0400 Heart rate 61 /min Dr. Yaz Zepeda MD Work Phone: [facility] 10-13-2024 07:49-0400 Respiratory rate 18 /min Dr. Yaz Zepeda MD Work Phone: [facility] 10-13-2024 07:49-0400 Systolic blood pressure 144 mm[Hg] Dr. Yaz Zepeda MD Work Phone: [facility] 09-30-2024 08:31-0400 Body temperature 97.4 [degF] Dr. Yaz Zepeda MD Work Phone: [facility] 09-30-2024 08:31-0400 Diastolic blood pressure 71 mm[Hg] Dr. Yaz Zepeda MD Work Phone: [facility] 09-30-2024 08:31-0400 Heart rate 67 /min Dr. Yaz Zepeda MD Work Phone: [facility] 09-30-2024 08:31-0400 Respiratory rate 16 /min Dr. Yaz Zepeda MD Work Phone: [facility] 09-30-2024 08:31-0400 SaO2% (BldA) [Mass fraction] 100 % Dr. Yaz Zepeda MD Work Phone: [facility] 09-30-2024 08:31-0400 Systolic blood pressure 128 mm[Hg] Dr. Yaz Zepeda MD Work Phone: [facility] 09-30-2024 03:41-0400 Body mass index (BMI) [Ratio] 26.3 kg/m2 Dr. Yaz Zepeda MD Work Phone: [facility] 09-30-2024 03:41-0400 Body weight 80.[address] Yaz Zepeda MD Work Phone: [facility] 09-30-2024 03:12-0400 Inhaled oxygen flow rate 2 L/min Dr. Yaz Zepeda MD Work Phone: [facility] 09-29-2024 14:19-0400 Body height 175.[address] Yaz Zepeda MD Work Phone: [facility] 08-17-2024 10:27-0400 Body height 175.[address] Yaz Zepeda MD Work Phone: [facility] 08-17-2024 10:27-0400 Body mass index (BMI) [Ratio] 25.7 kg/m2 Dr. Yaz Zepeda MD Work Phone: [facility] 08-17-2024 10:27-0400 Body weight 78.[address] Yaz Zepeda MD Work Phone: [facility] 08-17-2024 10:27-0400 Diastolic blood pressure 93 mm[Hg] Dr. Yaz Zepeda MD Work Phone: [facility] 08-17-2024 10:27-0400 Heart rate 83 /min Dr. Yaz Zepeda MD Work Phone: [facility] 08-17-2024 10:27-0400 Respiratory rate 18 /min Dr. Yaz Zepeda MD Work Phone: [facility] 08-17-2024 10:27-0400 SaO2% (BldA) [Mass fraction] 98 % Dr. Yaz Zepeda MD Work Phone: [facility] 08-17-2024 10:27-0400 Systolic blood pressure 127 mm[Hg] Dr. Yaz Zepeda MD Work Phone: [facility] 06-12-2024 12:54-0500 Body mass index (BMI) [Ratio] 26.4 kg/m2 Bri Praisler-Wood SOCK KNITTING MACHINE OPERATOR.SUBSTATION DESIGN DRAFTSPERSON Work Phone: [facility] 06-12-2024 12:54-0500 Body temperature 99 [degF] Bri Praisler-Wood SOCK KNITTING MACHINE OPERATOR.SUBSTATION DESIGN DRAFTSPERSON Work Phone: [facility] 06-12-2024 12:54-0500 Body weight 81.1 kg Bri Praisler-Wood SOCK KNITTING MACHINE OPERATOR.SUBSTATION DESIGN DRAFTSPERSON Work Phone: [facility] 06-12-2024 12:54-0500 Diastolic blood pressure 82 mm[Hg] Bri Praisler-Wood SOCK KNITTING MACHINE OPERATOR.SUBSTATION DESIGN DRAFTSPERSON Work Phone: [facility] 06-12-2024 12:54-0500 Heart rate 85 /min Bri Praisler-Wood SOCK KNITTING MACHINE OPERATOR.SUBSTATION DESIGN DRAFTSPERSON Work Phone: [facility] 06-12-2024 12:54-0500 Respiratory rate 20 /min Bri Praisler-Wood SOCK KNITTING MACHINE OPERATOR.SUBSTATION DESIGN DRAFTSPERSON Work Phone: [facility] 06-12-2024 12:54-0500 SaO2% (BldA) [Mass fraction] 98 % Bri Praisler-Wood SOCK KNITTING MACHINE OPERATOR.SUBSTATION DESIGN DRAFTSPERSON Work Phone: [facility] 06-12-2024 12:54-0500 Systolic blood pressure 142 mm[Hg] Bri Praisler-Wood SOCK KNITTING MACHINE OPERATOR.SUBSTATION DESIGN DRAFTSPERSON Work Phone: [facility] 04-09-2023 16:45-0500 Diastolic blood pressure 54 mm[Hg] Dr. Yaz Zepeda Work Phone: [facility] 04-09-2023 16:45-0500 Heart rate 60 /min Dr. Yaz Zepeda Work Phone: [facility] 04-09-2023 16:45-0500 Respiratory rate 18 /min Dr. Yaz Zepeda Work Phone: [facility] 04-09-2023 16:45-0500 SaO2% (BldA) [Mass fraction] 99 % Dr. Yaz Zepeda Work Phone: [facility] 04-09-2023 16:45-0500 Systolic blood pressure 108 mm[Hg] Dr. Yaz Zepeda Work Phone: [facility] 04-09-2023 14:31-0500 Body temperature 97 [degF] Dr. Yaz Zepeda Work Phone: [facility] 04-09-2023 13:30-0500 Inhaled oxygen flow rate 3 L/min Dr. Yaz Zepeda Work Phone: [facility] 04-09-2023 09:10-0500 Body height 175.[address] Yaz Zepeda Work Phone: [facility] 04-09-2023 09:10-0500 Body mass index (BMI) [Ratio] 22.1 kg/m2 Dr. Yaz Zepeda Work Phone: [facility] 04-09-2023 09:10-0500 Body weight 68.[address] Yaz Zepeda Work Phone: [facility] 03-26-2023 09:41-0500 Body mass index (BMI) [Ratio] 22.5 kg/m2 Dr. Yaz Zepeda Work Phone: [facility] 03-26-2023 09:41-0500 Body temperature 97.6 [degF] Dr. Yaz Zepeda Work Phone: [facility] 03-26-2023 09:41-0500 Body weight 69.[address] Yaz Zepeda Work Phone: [facility] 03-26-2023 09:41-0500 Diastolic blood pressure 60 mm[Hg] Dr. Yaz Zepeda Work Phone: [facility] 03-26-2023 09:41-0500 Heart rate 55 /min Dr. Yaz Zepeda Work Phone: [facility] 03-26-2023 09:41-0500 Respiratory rate 18 /min Dr. Yaz Zepeda Work Phone: [facility] 03-26-2023 09:41-0500 SaO2% (BldA) [Mass fraction] 97 % Dr. Yaz Zepeda Work Phone: [facility] 03-26-2023 09:41-0500 Systolic blood pressure 130 mm[Hg] Dr. Yaz Zepeda Work Phone: [facility] 06-03-2022 09:00-0500 Body height 175.[address] Yaz Zepeda Work Phone: [facility] 06-03-2022 09:00-0500 Body weight 78.[address] Yaz Zepeda Work Phone: [facility] 06-02-2022 08:19-0500 Body mass index (BMI) [Ratio] 25.4 kg/m2 Dr. Yaz Zepeda Work Phone: [facility] 04-25-2022 14:21-0500 Body height 175.[address] Yaz Zepeda Work Phone: [facility] Work Phone: 04-25-2022 14:21-0500 Body mass index (BMI) [Ratio] 25.4 kg/m2 Dr. Yaz Zepeda Work Phone: [facility] 04-25-2022 14:21-0500 Body weight 78.[address] Yaz Zepeda Work Phone: [facility] 04-25-2022 14:21-0500 Diastolic blood pressure 80 mm[Hg] Dr. Yaz Zepeda Work Phone: [facility] 04-25-2022 14:21-0500 Heart rate 80 /min Dr. Yaz Zepeda Work Phone: [facility] 04-25-2022 14:21-0500 Respiratory rate 18 /min Dr. Yaz Zepeda Work Phone: [facility] 04-25-2022 14:21-0500 Systolic blood pressure 132 mm[Hg] Dr. Yaz Zepeda Work Phone: [facility] 03-13-2022 08:24-0400 Body mass index (BMI) [Ratio] 24.9 kg/m2 Dr. Yaz Zepeda Work Phone: [facility] 03-13-2022 08:24-0400 Body weight 76.[address] Yaz Zepeda Work Phone: [facility] 03-13-2022 08:24-0400 Diastolic blood pressure 79 mm[Hg] Dr. Yaz Zepeda Work Phone: [facility] 03-13-2022 08:24-0400 Heart rate 73 /min Dr. Yaz Zepeda Work Phone: [facility] 03-13-2022 08:24-0400 SaO2% (BldA) [Mass fraction] 96 % Dr. Yaz Zepeda Work Phone: [facility] 03-13-2022 08:24-0400 Systolic blood pressure 134 mm[Hg] Dr. Yaz Zepeda Work Phone: [facility] 02-27-2022 07:55-0400 Body temperature 98.3 [degF] Dr. Yaz Zepeda Work Phone: [facility] 02-27-2022 07:55-0400 Diastolic blood pressure 62 mm[Hg] Dr. Yaz Zepeda Work Phone: [facility] 02-27-2022 07:55-0400 Heart rate 56 /min Dr. Yaz Zepeda Work Phone: [facility] 02-27-2022 07:55-0400 Respiratory rate 16 /min Dr. Yaz Zepeda Work Phone: [facility] 02-27-2022 07:55-0400 SaO2% (BldA) [Mass fraction] 97 % Dr. Yaz Zepeda Work Phone: [facility] 02-27-2022 07:55-0400 Systolic blood pressure 103 mm[Hg] Dr. Yaz Zepeda Work Phone: [facility] 02-27-2022 06:40-0400 Body height 175.[address] Yaz Zepeda Work Phone: [facility] Work Phone: 02-27-2022 06:40-0400 Body mass index (BMI) [Ratio] 24.4 kg/m2 Dr. Yaz Zepeda Work Phone: [facility] 02-27-2022 06:40-0400 Body weight [address] Yaz Zepeda Work Phone: [facility] Encounters Encounter Date Encounter Type Care Provider Facility Start: 02-03-2025 ambulatory Yaz Zepeda Facility: [facility] Start: 01-19-2025 ambulatory Oanh Mena Facility:[facility] Start: 01-13-2025 End: 01-13-2025 Patient encounter procedure Price WARNER -[facility] Work Phone: Start: 01-13-2025 End: 01-13-[address] Yaz Zepeda MD Work Phone: -[facility] Start: 01-13-2025 End: 01-13-2025 ambulatory Price Uriarte Facility:[facility] Start: 01-10-2025 End: 01-10-2025 Emergency department patient visit Dr. Yaz Zepeda MD Work Phone: -Emergency Department Work Phone: Start: 12-28-2024 End: 01-08-[address] Yaz Zepeda MD Work Phone: -Cardiac Rehab Start: 12-28-2024 End: 01-08-[address] Oanh Mena MD -Cardiac Rehab Work Phone: Start: 12-21-[address] Oanh almaraz MD -Cardiac Rehab Work Phone: Start: 12-13-2024 Non-patient / Non-visit Dr. Drew Butcher MD -[facility] Start: 12-13-2024 End: 12-13-[address] Yaz Zepeda MD Work Phone: -Cardiovascular Services Start: 12-13-2024 End: 12-13-2024 Patient encounter procedure Will Vences MOLASSES AND CARAMEL OPERATOR-C -Cardiovascular Services Work Phone: Start: 12-13-2024 End: 12-13-2024 ambulatory Will Vences MOLASSES AND CARAMEL OPERATOR Facility:[facility] Start: 12-07-2024 End: 12-08-[address] Yaz Zepeda MD Work Phone: -Cardiac Rehab Start: 12-07-2024 End: 12-08-2024 Discharged Recurring Dr. Oanh Mena MD -Cardiac Rehab Work Phone: Start: 12-02-[address] Oanh almaraz MD -Cardiac Rehab Work Phone: Start: 12-01-2024 Non-patient / Non-visit Alpa Mays -[facility] Work Phone: Start: 12-01-2024 End: 12-01-2024 Patient encounter procedure Will Vences MOLASSES AND CARAMEL OPERATOR-C -[facility] Work Phone: Start: 12-01-2024 End: 12-01-[address] Yaz Zepeda MD Work Phone: -[facility] Start: 12-01-2024 End: 12-01-2024 ambulatory Will Vences MOLASSES AND CARAMEL OPERATOR Facility:[facility] Start: 11-30-[address] Oanh almaraz MD -Cardiac Rehab Work Phone: Start: 11-15-2024 End: 11-15-2024 Patient encounter procedure Will Vences MOLASSES AND CARAMEL OPERATOR-C -[facility] Work Phone: Start: 11-15-2024 End: 11-15-[address] Yaz Zepeda MD Work Phone: -[facility] Start: 11-08-2024 End: 11-08-[address] Yaz Zepeda MD Work Phone: -Cardiac Rehab Start: 11-08-2024 End: 11-08-[address] Oanh Mena MD -Cardiac Rehab Work Phone: Start: 11-08-2024 End: 11-08-2024 ambulatory [facility] Facility:[facility] Start: 11-02-2024 Non-patient / Non-visit Dr. Oanh Mena MD -[facility] Start: 11-02-[address] Yaz lowe MD Work Phone: [facility] Work Phone: Start: 11-01-2024 End: 11-02-2024 ambulatory [facility] Facility:[facility] Start: 11-01-2024 End: 11-02-2024 Evaluation and management of inpatient Dr. Oanh Mena MD -Progressive Care Unit Work Phone: Start: 11-01-2024 End: 11-02-[address] Yaz Zepeda MD Work Phone: [facility] Work Phone: Start: 10-13-2024 End: 10-13-[address] Oanh Mena MD -[facility] Work Phone: Start: 10-13-2024 End: 10-13-[address] Yaz Zepeda MD Work Phone: [facility] Work Phone: Start: 10-05-2024 Non-patient / Non-visit Dr. Oanh Mena MD -[facility] Start: 10-05-[address] Yaz lowe MD Work Phone: [facility] Work Phone: Start: 09-29-2024 End: 09-30-2024 ambulatory Oanh Mena Facility:[facility] Start: 09-29-2024 End: 09-30-2024 Evaluation and management of inpatient Dr. Oanh Mena MD -Progressive Care Unit Work Phone: Start: 09-08-2024 ambulatory Will Vences NP Facility :[facility] Start: 09-08-2024 Non-patient / Non-visit Dr. Oanh Mena MD -[facility] Start: 09-08-2024 End: 09-08-[address] Yaz Zepeda MD Work Phone: [facility] Work Phone: Start: 09-08-2024 End: 09-08-2024 Patient encounter procedure Will Vences NP-C -Cardiovascular Services Work Phone: Start: 09-08-2024 End: 09-08-2024 ambulatory Yaz Zepeda Facility:[facility] Start: 08-17-2024 End: 08-17-2024 Patient encounter procedure Will Venecs NP-C -[facility] Work Phone: Start: 08-17-2024 End: 08-17-[address] Yaz Zepeda MD Work Phone: [facility] Work Phone: Start: 08-17-2024 End: 08-17-2024 ambulatory Yaz Zepeda Facility:[facility] Start: 08-03-2024 End: 08-03-[address] Yaz Zepeda MD Work Phone: [facility] Work Phone: Start: 08-03-2024 End: 08-03-[address] Yaz Zepeda MD -[facility] Work Phone: Start: 08-03-2024 End: 08-03-2024 ambulatory Yaz Zepeda Facility:[facility] Start: 06-22-2024 ambulatory Geovanny Aldridge Facility:[facility] Start: 06-22-2024 Non-patient / Non-visit Dr. Geovanny Aldridge MD -[facility] Start: 06-22-2024 End: 06-22-[address] Yaz Zepeda MD -Cardiovascular Services Work Phone: Start: 06-22-2024 End: 06-22-2024 ambulatory Yaz Zepeda Facility:[facility] Start: 06-12-2024 End: 06-12-2024 ambulatory YAZ ZEPEDA Facility:[facility] Start: 06-12-2024 End: 06-12-2024 Patient encounter procedure Bri Dickson APRN.CNP Work Phone: [facility] Comment on above: Lower resp. tract in fection (Primary Dx) Start: 03-24-2024 ambulatory Will H Ru MOLASSES AND CARAMEL OPERATOR Facility :[facility] Start: 03-17-2024 ambulatory Oanh Dickeyan [facility] Start: 03-17-2024 End: 03-17-2024 ambulatory Will H Ru MOLASSES AND CARAMEL OPERATOR Facility:[facility] Start: 03-09-2024 End: 03-09-2024 ambulatory Yaz Zepeda Facility:[facility] Start: 04-09-2023 Non-patient / Non-visit Dr. Yaz Zepeda Work Phone: [facility] Start: 04-09-2023 End: 04-09-2023 Admission to same day surgery center Dr. Yaz Zepeda Work Phone: [facility] Start: 04-09-2023 End: 04-09-[address] Yaz Zepeda Work Phone: [facility] Work Phone: Start: 03-26-2023 End: 03-26-[address] Yaz Zepeda Work Phone: [facility] Work Phone: Start: 02-12-2023 End: 02-13-2023 ambulatory YAZ ZEPEDA MD Facility:[facility] Start: 07-17-2022 End: 07-18-2022 ambulatory YAZ ZEPEDA MD Facility:[facility] Start: 07-17-2022 End: 07-17-2022 Patient encounter procedure YAZ ZEPEDA MD [facility] Start: 06-03-2022 End: 06-03-2022 Admission to same day surgery center Dr. Yaz Zepeda Work Phone: [facility]-Clinical Dietitian/Special Procedures Start: 06-03-2022 End: 06-03-[address] Yaz Zepeda Work Phone: [facility] Work Phone: Start: 06-02-2022 Non-patient / Non-visit Dr. Yaz Zepeda Work Phone: [facility] Start: 05-08-2022 Non-patient / Non-visit Dr. Yaz Zepeda Work Phone: [facility] Start: 05-08-2022 End: 05-08-[address] Yaz Zepeda Work Phone: [facility] Work Phone: Start: 05-08-2022 End: 05-08-[address] Yaz Zepeda Work Phone: [facility]-Cardiovascular Services Start: 04-25-2022 End: 04-25-[address] Yaz Zepeda Work Phone: [facility] Start: 04-17-2022 End: 04-18-2022 ambulatory YAZ ZEPEDA MD Facility:[facility] Start: 04-17-2022 End: 04-17-2022 Patient encounter procedure YAZ ZEPEDA MD [facility] Start: 03-13-2022 End: 03-13-[address] Yaz Zepeda Work Phone: [facility] Start: 02-27-2022 Non-patient / Non-visit Dr. Yaz Zepeda Work Phone: [facility] Start: 02-27-2022 End: 02-27-2022 Admission to same day surgery center Dr. Yaz Zepeda Work Phone: [facility]-Endoscopy Start: 02-27-2022 End: 02-27-[address] Yaz Zepeda Work Phone: [facility] Work Phone: Start: 12-19-2021 End: 12-19-[address] Yaz Zepeda Work Phone: [facility] Start: 10-11-2021 End: 10-11-2021 Patient encounter procedure ARLIN CHRISTIE DO [facility] Start: 07-30-2021 End: 07-30-2021 Patient encounter procedure YAZ ZEPEDA MD [facility] Start: 05-17-2018 Patient encounter EMIL HAWK [facility] ility:[facility] Start: 09-07-2017 End: 09-07-2017 Patient encounter EMIL HAWK Facility:[facility] Start: 03-09-2017 End: 03-09-2017 Patient encounter EMIL HAWK Facility:[facility] Procedures Date Procedure Procedure Detail Performing Clinician Start: 01-10-2025 Plain chest X-ray Dr. Patricio Zepeda MD Work Phone: Start: 01-10-[address] Yaz Zepeda MD Work Phone: Start: 11-02-[address] Yaz Zepeda MD Work Phone: Start: 11-01-2024 Coagulation time, activated Dr. Yaz Zepeda MD Work Phone: Start: 09-30-[address] Yaz Zepeda MD Work Phone: Start: 09-29-2024 Coagulation time, activated Dr. Yaz Zepeda MD Work Phone: Start: 09-19-2024 X-ray of chest, PA a nd lateral views Dr. Yaz Zepeda MD Work Phone: Start: 09-08-2024 Radionuclide imaging of perfusion of myocardium under exercise stress Dr. Yaz Zepeda MD Work Phone: Start: 08-17-2024 Evaluation of diagno stic study results Dr. Yaz Zepeda MD Work Phone: Start: 08-03-2024 CT of thorax with contrast Dr. Yaz Zepeda MD Work Phone: Start: 04-09-2023 Lap Robotic Inguinal Hernia (Right) Dr. Yaz Zepeda Work Phone: Start: 05-27-2022 Plain chest X-ray Dr. Patricio Zepeda Work Phone: Start: 05-08-2022 Radionuclide imaging of perfusion of myocardium under exercise stress Dr. Yaz Zepeda Work Phone: Start: 02-27-[address] Yaz Zepeda Work Phone: Start: 02-25-2018 Lipid 1996 panel - S johnnie or Plasma Bri Dickson SOCK KNITTING MACHINE OPERATOR.SUBSTATION DESIGN DRAFTSPERSON Work Phone: Start: 03-09-2015 Colonoscopy Bri Soni SOCK KNITTING MACHINE OPERATOR.SUBSTATION DESIGN DRAFTSPERSON Work Phone: Appendectomy YAZ Pritchett Hernia repair YAZ ZEPEDA MD Knee region structur e (body structure) YAZ ZEPEDA MD Comment on above: right D&O Plan of Treatment Date Care Activity Detail Author Start: 2028 RSV Vaccine (1 - 1-d ose 75+ series) RSV Vaccine (1 - 1-dose 75+ series) [facility] Start: 01-10-2025 [facility] Start: 01-10-2025 [facility] Start: 11-02-2024 Patient referral [facility]ATHER [facility] Work Phone: Start: 11-02-2024 [facility] Start: 11-02-2024 Patient discharge [facility] Start: 11-01-2024 Following clinical pathway protocol [facility] Start: 11-01-2024 Admission procedure [facility] Start: 11-01-[address] [facility] Start: 11-01-2024 Cardiac monitoring [facility] Start: 11-01-2024 Cardiac rehabilitati on - phase 1 [facility] Start: 11-01-2024 Cardiac rehabilitati on - phase 2 [facility] Start: 11-01-[address] [facility] Start: 11-01-[address] [facility] Start: 11-01-[address] [facility] Start: 11-01-2024 Patient discharge [facility] Start: 11-01-2024 Patient education [facility] Start: 11-01-2024 Pulse taking [facility] Start: 11-01-2024 End: 11-01-2024 [facility] Start: 11-01-[address] [facility] Start: 10-05-2024 Patient referral [facility] Work Phone: Start: 09-30-2024 Patient discharge [facility] Start: 09-29-2024 Following clinical pathway protocol [facility] Start: 09-29-[address] [facility] Start: 09-29-2024 Cardiac monitoring [facility] Start: 09-29-2024 Cardiac rehabilitati on - phase 1 [facility] Start: 09-29-2024 Cardiac rehabilitati on - phase 2 [facility] Start: 09-29-[address] [facility] Start: 09-29-[address] [facility] Start: 09-29-2024 Patient discharge [facility] Start: 09-29-2024 Systemic arterial pressure monitoring [facility] Start: 09-29-2024 Taking patient vital signs [facility] Start: 09-29-2024 Vascular disease ris k assessment [facility] Start: 09-29-[address] [facility] Start: 09-29-2024 [facility] Start: 09-29-2024 Admission procedure [facility] Start: 09-29-[address] [facility] Start: 05-11-2024 Advance Directive Discussion Advance Directive Discussion [facility] Start: 03-29-2024 Urine microalbumin profile DTaP,Tdap,Td Vaccine (2 - Td or Tdap) [facility] Start: 01-10-2024 Covid-19 Vaccine () Covid-19 Vaccine () [facility] Start: 01-10-2024 Influenza vaccination Influenza Vacc ine (#1) [facility] Start: 04-09-2023 Patient discharge [facility] Start: 02-25-2023 Lipid panel Lipid Screening [facility] Start: 02-27-2022 Colonoscopy w/biopsy single/multiple COLONOSCOPY AND BIOPSY [facility] Start: 02-27-2022 Egd transoral biopsy single/multiple EGD BIOPSY SINGLE/MULTIPLE [facility] Start: 02-27-2022 Patient discharge [facility] Start: 02-25-2021 Diabetes Screening Diabetes Screenin g [facility] Start: 03-09-2020 Screening for malign ant neoplasm of colon [facility] Start: 2003 Pneumococcal Vaccine : 50+ (1 of 1 - PCV) Pneumococcal Vaccine: 50+ (1 of 1 - PCV) [facility] Start: 2003 Shingrix Vaccine (1 of 2) Shingrix Vaccine (1 of 2) [facility] Start: 1998 Screening for malign ant neoplasm of colon [facility] Start: 1971 Anxiety Screening Anxiety Screening [facility] Start: 1971 Depression Screening Depression Scre ening [facility] Start: 1971 Hepatitis C screening Hepatitis C Sc teresa [facility] Basic metabolic 2008 panel with ionized calcium - Serum or Plasma [facility] CBC W Auto Different ial panel - Blood [facility] COVID & INFLUENZA A/ B & RSV PCR, ROUTINE COVID & INFLUENZA A/B & RSV PCR, ROUTINE Microbiology Routine Lower resp. tract infection Ordered: 06/12/2024 [facility] Work Phone: Comment on above: Ordered: 06/12/2024 Hepatic function panel [facility] Lipid 1996 panel - S johnnie or Plasma [facility] Natriuretic peptide. B prohormone N-Terminal [Mass/volume] in Serum or Plasma [facility] NM Heart Views W str ess and W radionuclide IV [facility] Patient Education ED Chest Pain, Uncertain Cause ED Neck Spasm, No Trauma [facility] Work Phone: Patient referral [facility] Work Phone: [place] Carotid arteries [facility] Immunizations Immunization Date Immunization Notes Care Provider Fa [facility] 04-26-2021 COVID-19, mRNA, LNP- S, PF, 100 mcg or 50 mcg dose; Translations: [Moderna COVID-19 Vaccine] YAZ ZEPEDA MD [facility] 08-24-2020 SARS-CoV-2 (COVID-19 ) mRNA-1273 vaccine YAZ ZEPEDA MD [facility] Comment on above: Result Comment: 2020: [id number] 07-27-2020 SARS-CoV-2 (COVID-19 ) mRNA-1273 vaccine YAZ ZEPEDA MD [facility] Comment on above: Result Comment: 2020: [id number] 03-29-2014 influenza virus vaccine, unspecified formulation YAZ ZEPEDA MD [facility] 03-29-2014 influenza, injectabl e, quadrivalent, preservative free Dr. Yaz Zepeda MD Work Phone: [facility] 03-29-2014 tetanus toxoid, redu rene diphtheria toxoid, and acellular pertussis vaccine, adsorbed YAZ ZEPEDA MD [facility] Payers Date Payer Category Payer Medicare MMO MEDICARE MMO MEDADVANTAGE PPO [id number] 2024-Present [phone] [address] [place] [address] PPO [id number] 2024 Unknown [id number] 2024 Self-pay [id number] 2022 Medicare [id number] 2016 Unknown [id number] 1955 Unknown [id number] 2.16.840.1.557091.3.579.2.6 27 1953 Unknown [id number] 2.16.840.1.092860.3.579.2.6 27 1953 Unknown [id number] 2.16.840.1.725227.3.579.2.6 27 Unknown [id number] Unknown [id number] 2.16.840.1.949380.3.579.2.4 62 Unknown [id number] 2.16.840.1.997115.3.579.2.4 62 Unknown [id number] 2.16.840.1.509166.3.579.2.4 62 Unknown [id number] 2.16.840.1.078024.3.579.2.4 62 Unknown [id number] 2.16.840.1.318453.3.579.2.4 62 Unknown [id number] 2.16.840.1.079939.3.579.2.4 62 Unknown [id number] 2.16.840.1.897267.3.579.2.4 62 Unknown [id number] 2.16.840.1.696380.3.579.2.4 62 Unknown [id number] 2.16.840.1.040051.3.579.2.4 62 Unknown [id number] 2.16.840.1.602558.3.579.2.4 62 Unknown [id number] 2.16.840.1.084136.3.579.2.4 62 Unknown [id number] 2.16.840.1.905324.3.579.2.4 62 Unknown [id number] 2.16.840.1.403472.3.579.2.4 62 Unknown [id number] 2.16.840.1.820124.3.579.2.4 62 Unknown [id number] 2.16.840.1.471360.3.579.2.4 62 Unknown [id number] 2.16.840.1.496463.3.579.2.4 62 Unknown [id number] 2.16.840.1.785540.3.579.2.4 62 Unknown [id number] 2.16.840.1.199532.3.579.2.4 62 Unknown [id number] 2.16.840.1.995800.3.579.2.4 62 Unknown [id number] 2.16.840.1.354230.3.579.2.4 62 Unknown [id number] 2.16.840.1.289984.3.579.2.4 62 Unknown [id number] 2.16.840.1.101982.3.579.2.4 62 Unknown [id number] 2.16.840.1.418098.3.579.2.4 62 Unknown [id number] 2.16.840.1.930484.3.579.2.4 62 Unknown [id number] 2.16.840.1.602688.3.579.2.4 62 Unknown [id number] 2.16.840.1.617642.3.579.2.4 62 Unknown [id number] 2.16.840.1.471925.3.579.2.4 62 Unknown [id number] 2.16.840.1.850595.3.579.2.4 62 Unknown [id number] 2.16.840.1.834437.3.579.2.4 62 Unknown [id number] 2.16.840.1.709063.3.579.2.4 62 Unknown [id number] 2.16.840.1.632078.3.579.2.4 62 Unknown [id number] 2.16.840.1.463271.3.579.2.4 62 Unknown [id number] 2.16.840.1.151854.3.579.2.4 62 Social History Date Type Detail Facility Start: 02-02-2019 End: 01-10-2025 Never smoked tobacco (finding) [facility] Start: 1955 Sex Assigned At Male A [facility] Start: 02-24-2022 End: 04-06-2023 Tobacco smoking status ARIS Unknown if ever smoked [facility] Start: 05-06-2019 None [facility] Start: 01-06-2017 Spouse/ Signif icant Other [facility] Start: 01-09-2020 Non-smoker [facility] Start: 07-16-2015 Tobacco use and exposure Smokeless tobacco non-user [facility] Start: 06-12-2024 Alcoholic beverage intake Current non-drinker of alcohol (finding) [facility] Start: 04-15-2020 End: 06-12-2024 History of Social function [facility] Start: 04-15-2020 End: 06-12-2024 Tobacco use panel [facility] National Score (1-100), lower number is lower risk Not on file [facility] Start: 1955 Sex assigned at Not on file [facility] Start: 08-08-2024 End: 08-23-2024 Sex Male (finding) [facility] Medical Equipment Procedure Code Equipment Code Equipment Origin al Text Equipment Identifier Dates Extra-gynaecolog ical surgical mesh, composite-polymer [id number] FDA Start: 04-09-2023 Drug-eluting coronary artery stent, nzo-peytyizwzonky-hd lymer-coated ()[id number] FDA Start: 09-29-2024 Drug-eluting coronary artery stent, hag-hbfokpcnpjrgb-wy lymer-coated ()[id number] FDA Start: 11-01-2024 Drug-eluting coronary artery stent, ezc-qkwjldgnxpwlu-pu lymer-coated ()[id number] FDA Start: 11-01-2024 Goals Date Patient Goal Desired Activity /State Functional Status Date Assessment Result Facility 11-02-2024 Functional status Ambulates [facility] Work Phone: 09-30-2024 Functional status Ambulates [facility] Work Phone: Mental Status Date Assessment Result Facility 01-10-2025 Cognitive function Level Of Cons ciousness Awake;Alert;Appropriate;Follo ws Commands [facility] Work Phone: 11-02-2024 Cognitive function Voice/Name [facility] Work Phone: 11-02-2024 Cognitive function Voice/Name [facility] Work Phone: 09-30-2024 Cognitive function Voice/Name [facility] Work Phone: 04-09-2023 Cognitive function Level Of Cons ciousness Sedated [facility] Work Phone: 02-27-2022 Cognitive function Voice/Name;Touch/Shaki ng [facility] Work Phone: Clinical Notes 06-03-2022 to 01-10-2025 Note Date & Type Note Facility 01-10-2025 Radiology Diagnostic study note [facility] Imaging Services [address] [place] [address] Chest 1 View (Portable) MR#: [id number] Acct: [id number] Name: EMIL TRONCOSO Rep #: [id number] : 1955 M 69 From: Meera Davis MD PCP: Dr. Yaz Zepeda MD Status: REG ER Study:Chest 1 View (Portable) Date of Exam: 01/10/25 Exam# [id number] Ordering Dr: Gabriel Patel DO PROCEDURE: CHEST 1 VIEW (PORTABLE) 01/10/2025 REASON FOR EXAM: CHEST PAIN TECHNIQUE: Frontal view of the chest. COMPARISON: 09/19/24 FINDINGS: Left base subsegmental atelectasis. no focal consolidation. No pleural effusion or pneumothorax. Cardiac silhouette is within normal limits. No acute fractures. RAD/Chest 1 View (Portable) IMPRESSION: Left base subsegmental atelectasis. no focal consolidation. Reading Location: [facility] CC: Dr. Solange Patel DO; Dr. Yaz Zepeda MD ~ Crew Team Member: Signed [facility] 11-01-2024 Discharge summary Note Date/Time November 01, 2024 11:25am [facility] Medical Records Department [address] [place] [address] Instructions for Home/Discharge Instructions 11/01/24 1123 MR#: [id number] Acct: [id number] Name: EMIL TRONCOSO Rep #:[id number] : 1955 69 From: Oanh Mena MD PCP: Dr. Yaz Zepeda MD Status:REG MDC Discharge Instructions Diet Discharge Diet: Low fat / Low cholesterol DC O2, CPAP, BIPAP needs Home O2 Discharge instructions: No Dressing / Incision Discharge Activity: Return to Normal Activity May resume sexual activity in: No Restrictions Dressing / Incision Call your doctor if your incision/area has: Continuous Slow Oozing, Sudden Increased Bleeding, Increased Pain/ Swelling, Increased Redness, Foul Smelling Discharge and Swelling at the incision site Call your doctor if you observe: Fever of 101 or Higher, Coldness, Increased Pain, Numbness or Tingling and Change in Color Follow Up Care Please Follow Up With: Oanh Mena MD When: 2-4 weeks Test Results: Test results from this visit will be discussed in further detail at your follow-up appointment, if applicable. Discharge Plan Admission Attending Provider: Oanh Mena Primary Care Provider: Yaz Zepeda Instructions Print Language: Nepalese Discharge Orders/Prescriptions Prescriptions: No Action verapamil 180 mg capsule,ext rel. pellets 24 hr 180 mg PO QHS nitroglycerin 0.4 mg tablet, sublingual 0.4 mg SUBLINGUAL Q5-15M epinephrine 0.3 mg/0.3 mL auto-injector 0.3 mg IM ONCE PRN (Reason: ALLERGY) Rx Instructions: as a single dose tizanidine 4 mg capsule 4 mg PO Q8H PRN (Reason: MUSCLE RELAXANT) pantoprazole 40 MG tablet 40 mg PO DAILY Patient Comments: acid reflux albuterol sulfate 1 PUFF inhaler 2 puff INHALATION Q4H PRN PRN (Reason: Sob &/Or Wheezing) Patient Comments: Shortness of breath Eliquis 5 MG tablet 5 mg PO BID multivitamin with minerals 1 EACH tablet 1 tab PO DAILY meclizine 25 MG tablet 25 mg PO TID PRN PRN (Reason: dizziness, vertigo) Qty: 30 0RF acetaminophen 325 mg Tablet 650 mg PO Q4H PRN PRN (Reason: Pain 1-10 Or Fever) Qty: 0 0RF clopidogrel 75 mg Tablet 75 mg PO DAILY Qty: 30 6RF rosuvastatin 10 mg tablet 10 mg PO QDAY Qty: 90 3RF isosorbide mononitrate 30 mg tablet extended release 24 hr 30 mg PO QAM Qty: 90 3RF Referrals / Follow Up: Yaz Zepeda MD [Primary Care Provider] - Disposition Disposition (needs filled in before D/C Order can be placed): Home, Self Care 11/01/24 8866<Electronically signed by Oanh Mena MD>Oanh Mena MD CC: Dr. Yaz Zepeda MD ~ Signed [facility] Work Phone: 1(291) 652-762506-24-2025 Discharge summary [facility] Medical Records Department [address] [place] [address] Instructions for Home/Discharge Instructions 11/01/24 1123 MR#: [id number] Acct: [id number] Name: EMIL TRONCOSO Rep #:[id number] : 1955 69 From: Oanh Mena MD PCP: Dr. Yaz Zepeda MD Status:REG SDC Discharge Instructions Diet Discharge Diet: Low fat / Low cholesterol DC O2, CPAP, BIPAP needs Home O2 Discharge instructions: No Dressing / Incision Discharge Activity: Return to Normal Activity May resume sexual activity in: No Restrictions Dressing / Incision Call your doctor if your incision/area has: Continuous Slow Oozing, Sudden Increased Bleeding, Increased Pain/ Swelling, Increased Redness, Foul Smelling Discharge and Swelling at the incision site Call your doctor if you observe: Fever of 101 or Higher, Coldness, Increased Pain, Numbness or Tingling and Change in Color Follow Up Care Please Follow Up With: Oanh Mena MD When: 2-4 weeks Test Results: Test results from this visit will be discussed in further detail at your follow- up appointment, if applicable. Discharge Plan Admission Attending Provider: Oanh Mena Primary Care Provider: Yaz Zepeda Instructions Print Language: Nepalese Discharge Orders/Prescriptions Prescriptions: No Action verapamil 180 mg capsule,ext rel. pellets 24 hr 180 mg PO QHS nitroglycerin 0.4 mg tablet, sublingual 0.4 mg SUBLINGUAL Q5-15M epinephrine 0.3 mg/0.3 mL auto-injector 0.3 mg IM ONCE PRN (Reason: ALLERGY) Rx Instructions: as a single dose tizanidine 4 mg capsule 4 mg PO Q8H PRN (Reason: MUSCLE RELAXANT) pantoprazole 40 MG tablet 40 mg PO DAILY Patient Comments: acid reflux albuterol sulfate 1 PUFF inhaler 2 puff INHALATION Q4H PRN PRN (Reason: Sob &/Or Wheezing) Patient Comments: Shortness of breath Eliquis 5 MG tablet 5 mg PO BID multivitamin with minerals 1 EACH tablet 1 tab PO DAILY meclizine 25 MG tablet 25 mg PO TID PRN PRN (Reason: dizziness, vertigo) Qty: 30 0RF acetaminophen 325 mg Tablet 650 mg PO Q4H PRN PRN (Reason: Pain 1-10 Or Fever) Qty: 0 0RF clopidogrel 75 mg Tablet 75 mg PO DAILY Qty: 30 6RF rosuvastatin 10 mg tablet 10 mg PO QDAY Qty: 90 3RF isosorbide mononitrate 30 mg tablet extended release 24 hr 30 mg PO QAM Qty: 90 3RF Referrals / Follow Up: Yaz Zepeda MD [Primary Care Provider] - Disposition Disposition (needs filled in before D/C Order can be placed): Home, Self Care 11/01/24 1125Aghada Mena MD CC: Dr. Yaz Zepeda MD ~ Signed 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 (DVT) chronic October 13, 2024 9:45am Hypertension chronic October 13 9:45am Nonischemic cardiomyopathy resolved October 13, 2024 9:45am Aortic stenosis chronic November 15, 2024 9:53am CAD (coronary artery disease) chroni c November 15, 2024 9:53am Dyslipidemia chronic November 15 9:53am History of recurrent deep ve in thrombosis (DVT) chronic November 15, 2024 9:53am Hypertension chronic November 15 9:53am Nonischemic cardiomyopathy resolved November 15, 2024 9:53am Dyspnea on exertion acute December 01, 2024 1:04pm Aortic stenosis chronic November 1:04pm CAD (coronary artery disease) chroni c December 01, 2024 1:04pm Dyslipidemia chronic December 01, 025 1:04pm History of recurrent deep ve in thrombosis (DVT) chronic December 01, 2024 1:04pm Hypertension chronic December 01 025 1:04pm Nonischemic cardiomyopathy resolved December 01, 2024 1:04pm [facility] Work Phone: 1(853) 486-380106-05-2025 Evaluation note* Diagnosis Onset Date Resolution Status Admit Date Aortic stenosis chronic October 13, 2024 9:45am CAD (coronary artery disease) chronic October 13, 2024 9 :45am Dyslipidemia chronic October 13 9:45am History of recurrent deep vein thrombosis (DVT) chronic October 13, 2024 9:45am Hypertension chronic October 13 9:45am Nonischemic cardiomyopathy resolved October 13, 2024 9:45am Aortic stenosis chronic November 15, 2024 9:53am CAD (coronary artery disease) chronic November 15, 2024 9 :53am Dyslipidemia chronic November 15 9:53am History of recurrent deep vein thrombosis (DVT) chronic November 15, 2024 9:53am Hypertension chronic November 15 9:53am Nonischemic cardiomyopathy resolved November 15, 2024 9:53am Dyspnea on exertion acute December 01, 2024 1:04pm Aortic stenosis chronic November 1:04pm CAD (coronary artery disease) chronic December 01, 2024 1:04pm Dyslipidemia chronic December 01, 025 1:04pm History of recurrent deep vein thrombosis (DVT) chronic December 01, 2024 1:04pm Hypertension chronic December 01, 025 1:04pm Nonischemic cardiomyopathy resolved December 01, 2024 1:04pm Aortic stenosis chronic January 13, 2025 8:48am CAD (coronary artery disease) chronic January 13 8:48am Dyslipidemia chronic January 8:48am Hyperlipidemia chronic January 13, 2025 8:48am Hypertension chronic January 8:48am Stented coronary artery November 01, 2024 chronic January 13, 2025 8:48am Nonischemic cardiomyopathy resolved January 13, 2025 8:48am Chest pain noneactive January 13, 2025 8:48am [facility] Work Phone: 1(684) 858-784305-22-2025 Chief complaint+Reason for visit Narrative * Chief Complaint Admit Date ABN STRESS September 29, 2024 1:49p m Referral Order October 05, 2024 4:47p m S/P CATH ON 09/29October 13, 2024 9:45a m CAD, CHEST PAIN November 01, 2024 11:1 9am Referral Order November 02, 2024 8:19 am PCI w/stenting November 08, 2024 11:51 am S/P ([facility] 11/01) November 15, 2024 9:53a m Patient having swelling issues - OK'd pe r JHR December 01, 2024 1:04pm Amb Documentation December 01, 2024 1:16 pm INT LAB ORDERS December 01, 2024 1:59 pm PCI with stenting December 07, 2024 3:15 pm dizziness December 13, 2024 7:4 8am PCI with stenting December 28, 2024 3: 15pm Reason for Visit Admit Date Aortic stenosis October 13, 2024 9:45a m CAD (coronary artery disease) October 13, 2024 9:45am Dyslipidemia October 13, 2024 9:45a m History of recurrent deep vein thrombosi s (DVT) October 13, 2024 9:45am Hypertension October 13, 2024 9:45a m Nonischemic cardiomyopathy October 13 9:45am Aortic stenosis November 15, 2024 9:53a m CAD (coronary artery disease) November 15, 2024 9:53am Dyslipidemia November 15, 2024 9:53a m History of recurrent deep vein thrombosi s (DVT) November 15, 2024 9:53am Hypertension November 15, 2024 9:53a m Nonischemic cardiomyopathy November 15 9:53am Dyspnea on exertion December 01, 2024 1:04 pm Aortic stenosis December 01, 2024 1:04 pm CAD (coronary artery disease) December 01, 2024 1:04pm Dyslipidemia December 01, 2024 1:04 pm History of recurrent deep vein thrombosi s (DVT) December 01, 2024 1:04pm Hypertension December 01, 2024 1:04 pm Nonischemic cardiomyopathy December 01 1:04pm [facility] Work Phone: 1([phone]) 312-640705-22-2025 Chief complaint+Reason for visit Narrative * Chief Complaint Admit Date ABN STRESS September 29, 2024 1:49p m Referral Order October 05, 2024 4:47p m S/P CATH ON 09/29October 13, 2024 9:45a m CAD, CHEST PAIN November 01, 2024 11:1 9am Referral Order November 02, 2024 8:19 am PCI w/stenting November 08, 2024 11:51 am S/P ([facility] 11/01) November 15, 2024 9:53a m Patient having swelling issues - OK'd pe r JHR December 01, 2024 1:04pm Amb Documentation December 01, 2024 1:16 pm INT LAB ORDERS December 01, 2024 1:59 pm PCI with stenting December 07, 2024 3:15 pm dizziness December 13, 2024 7:4 8am PCI with stenting December 28, 2024 3: 15pm chest pain January 10, 2025 5:03pm Reason for Visit Admit Date Aortic stenosis October 13, 2024 9:45a m CAD (coronary artery disease) October 13, 2024 9:45am Dyslipidemia October 13, 2024 9:45a m History of recurrent deep vein thrombosi s (DVT) October 13, 2024 9:45am Hypertension October 13, 2024 9:45a m Nonischemic cardiomyopathy October 13 9:45am Aortic stenosis November 15, 2024 9:53a m CAD (coronary artery disease) November 15, 2024 9:53am Dyslipidemia November 15, 2024 9:53a m History of recurrent deep vein thrombosi s (DVT) November 15, 2024 9:53am Hypertension November 15, 2024 9:53a m Nonischemic cardiomyopathy November 15 9:53am Dyspnea on exertion December 01, 2024 1:04 pm Aortic stenosis December 01, 2024 1:04 pm CAD (coronary artery disease) December 01, 2024 1:04pm Dyslipidemia December 01, 2024 1:04 pm History of recurrent deep vein thrombosi s (DVT) December 01, 2024 1:04pm Hypertension December 01, 2024 1:04 pm Nonischemic cardiomyopathy December 01 1:04pm [facility] Work Phone: 1(943) 283-823205-22-2025 Chief complaint+Reason for visit Narrative * Chief Complaint Admit Date ABN STRESS September 29, 2024 1:49p m Referral Order October 05, 2024 4:47p m S/P CATH ON 09/29October 13, 2024 9:45a m CAD, CHEST PAIN November 01, 2024 11:1 9am Referral Order November 02, 2024 8:19 am PCI w/stenting November 08, 2024 11:51 am S/P ([facility] 11/01) November 15, 2024 9:53a m Patient having swelling issues - OK'd pe r JHR December 01, 2024 1:04pm Amb Documentation December 01, 2024 1:16 pm INT LAB ORDERS December 01, 2024 1:59 pm PCI with stenting December 07, 2024 3:15 pm dizziness December 13, 2024 7:4 8am PCI with stenting December 28, 2024 3: 15pm chest pain January 10, 2025 5:03pm S/P [facility] (01/10) January 13, 2025 8:48am Reason for Visit Admit Date Aortic stenosis October 13, 2024 9:45a m CAD (coronary artery disease) October 13, 2024 9:45am Dyslipidemia October 13, 2024 9:45a m History of recurrent deep vein thrombosi s (DVT) October 13, 2024 9:45am Hypertension October 13, 2024 9:45a m Nonischemic cardiomyopathy October 13 9:45am Aortic stenosis November 15, 2024 9:53a m CAD (coronary artery disease) November 15, 2024 9:53am Dyslipidemia November 15, 2024 9:53a m History of recurrent deep vein thrombosi s (DVT) November 15, 2024 9:53am Hypertension November 15, 2024 9:53a m Nonischemic cardiomyopathy November 15 9:53am Dyspnea on exertion December 01, 2024 1:04 pm Aortic stenosis December 01, 2024 1:04 pm CAD (coronary artery disease) December 01, 2024 1:04pm Dyslipidemia December 01, 2024 1:04 pm History of recurrent deep vein thrombosi s (DVT) December 01, 2024 1:04pm Hypertension December 01, 2024 1:04 pm Nonischemic cardiomyopathy December 01 1:04pm Aortic stenosis January 13, 2025 8:48am CAD (coronary artery disease) January 13, 2025 8:48am Dyslipidemia January 13, 2025 8:48am Hyperlipidemia January 13, 2025 8:48am Hypertension January 13, 2025 8:48am Stented coronary artery January 13, 025 8:48am Nonischemic cardiomyopathy January 8:48am Chest pain January 13, 2025 8:48am [facility] Work Phone: 1(764) 447-414805-18-2025 [facility] Medical Records Department [employer] [place] [address] History Physical Exam 09/25/24 1335 MR#: [id number] Acct: [id number] Name: EMIL TRONCOSO Rep #: [id number] : 1955 69 From: Oanh Mena MD PCP: Dr. Yaz Zepeda MD Status:DIS BLAS Location: [place] [address] History and Physical Date of Admission: 09/29/24 This is a 69-year-old gentleman with a history of CAD, a non-CAD related cardiomyopathy, hyperlipidemia, and hypertension. He follows with Dr. Stephens for skin cancer and has completed chemotherapy cream. He underwent stress test on 09/08/2024 that showed moderate size reversible defect in the inferior wall and small reversible defect of the basal lateral wall. LV function reported at 74%. On account of abnormal stress test and symptoms, he will proceed with heart catheterization. He acknowledges random, left-sided chest discomfort. This can last from all day to half an hour. This is mostly noted at rest and denies it with activity. He acknowledges lower extremity edema with left worse than right. He acknowledges occasional shortness of breath and when he feels that he cannot get breath in. He acknowledges palpitations. He denies shortness of breath at rest, orthopnea, cough, or PND. He acknowledges dizziness, lightheadedness, weakness, fatigue, and headaches. He states his symptoms have been gradually worsened for 2.5 months, but worsening over the last month. Chest CT with PCP was negative for PE and no comment regarding aortic aneurysm. Intake Vital Signs: See EMR Intake Visit Reasons: [facility] [employer] Required: No Is patient in pain?: No Allergies bee venom protein (honey bee) Allergy (Verified 08/17/24 13:02) Anaphylaxis cefadroxil hydrate (From Duricef) Allergy (Verified 08/17/24 13:02) Rash niacin (From Niaspan Extended-Release) Allergy (Verified 08/17/24 13:02) Rash azatadine Adverse Reaction (Verified 08/17/24 13:02) Other pseudoephedrine Adverse Reaction (Verified 08/17/24 13:02) Other Medications: See EMR Ejection fraction %: 65 Have you fallen in the past year?: No [facility] Medical History Wears dentures History of diverticulitis CAD (coronary artery disease) Right inguinal hernia Abnormal nuclear stress test Atherosclerotic heart disease of [place] coronary artery without angina pectoris Wears glasses Wears partial dentures Cancer Depression Anxiety Abrasion Arthritis Fatty liver Easy bruising Excessive bleeding Restless legs Vertigo Gastric reflux Sleep apnea CPAP (continuous positive airway pressure) dependence Shortness of breath on exertion Non-smoker History of edema Leg cramps History of echocardiogram Hypertension History of heart attack Chest pain History of stress test Cardiology follow-up encounter Abdominal pain Vertigo Squamous cell carcinoma Elevated troponin I level (2005) Nonobstructive atherosclerosis of coronary artery Recurrent deep vein thrombosis (DVT) Nonischemic cardiomyopathy Obstructive sleep apnea Gastroesophageal reflux disease Talamantes's esophagus Paroxysmal supraventricular tachycardia Osteoarthritis Insomnia Carotid artery occlusion without infarction Diverticulitis Type 2 diabetes mellitus without complication Asthma Myalgia Facial paresthesia (07/2018) Pericarditis Migraines History of GI bleed Hyperlipidemia Essential hypertension GI bleed Surgical History History of robot-assisted repair of right inguinal hernia History of esophagogastroduodenoscopy (EGD) History of colonoscopy History of left heart catheterization (06/03/22) History of left knee surgery History of inguinal hernia repair History of appendectomy Family History Brother Cancer prostate DiabetesFather Cancer stomach CAD (coronary artery disease) Heart disease Hypertension Hearing lossMother CAD (coronary artery disease) Diabetes Heart disease Hypertension CVA (cerebral vascular accident) Social History Smoking Status: Never smoker alcohol intake: never substance use type: does not use caffeine: Yes Type: coffee Number of servings: 3 ROS Const Const: Positive for fatigue, weakness and headache(s); Negative for frequent falls Eyes Eyes: Negative for blurry vision ENT ENT: Positive for headache(s) and dizziness; Negative for Nosebleed/epistaxis Cardio Chest Pain: Yes Palpitations: Yes Edema: Bilateral Muscle aches with walking: None Resp Respiratory: Negative for SOB with activity, SOB at rest or SOB orthopnea SOB lying down GI GI: Negative nausea, vomiting, heartburn, bright, red blood in stools or black,tarry stools : Negative for hematuria M (more content not included)...[facility]04-09-2025 Evaluation note* Diagnosis Onset Date Resolution Status Admit Date Dyspnea on exertion acute August 17, 2024 12:55pm Nonrheumatic aortic (valve) insufficiency acute August 17, 2024 12:55pm Atherosclerotic heart diseas e of [place] coronary artery without angina pectoris chronic August 17, 2024 12:55pm Cardiomyopathy chronic August 17, 2024 12:55pm Essential hypertension chronic Ap ril 2024 12:55pm Hyperlipidemia chronic August 17, 2024 12:55pm [facility] Work Phone: 1([phone]) 660-502104-09-2025 Evaluation note* Diagnosis Onset Date Resolution Status Admit Date Dyspnea on exertion acute August 17, 2024 12:55pm Nonrheumatic aortic (valve) insufficiency acute August 17, 2024 12:55pm Atherosclerotic heart diseas e of [place] coronary artery without angina pectoris chronic August 17, 2024 12:55pm Cardiomyopathy chronic August 17, 2024 12:55pm Essential hypertension chronic Ap ril 2024 12:55pm Hyperlipidemia chronic August 17, 2024 12:55pm Aortic stenosis chronic October 13, 2024 9:45am CAD (coronary artery disease) chroni c October 13, 2024 9:45am Dyslipidemia chronic October 13 9:45am History of recurrent deep ve in thrombosis (DVT) chronic October 13, 2024 9:45am Hypertension chronic October 13 9:45am Nonischemic cardiomyopathy resolved October 13, 2024 9:45am [facility] Work Phone: [phone]) [phone] Evaluation note* Diagnosis Onset Date Resolution Status Admit Date Dyspnea on exertion acute August 17, 2024 12:55pm Nonrheumatic aortic (valve) insufficiency acute August 17, 2024 12:55pm Atherosclerotic heart diseas e of [place] coronary artery without angina pectoris chronic August 17, 2024 12:55pm Cardiomyopathy chronic August 17, 2024 12:55pm Essential hypertension chronic Ap ril 2024 12:55pm Hyperlipidemia chronic August 17, 2024 12:55pm Aortic stenosis chronic October 13, 2024 9:45am CAD (coronary artery disease) chroni c October 13, 2024 9:45am History of recurrent deep ve in thrombosis (DVT) chronic October 13, 2024 9:45am Hypertension chronic October 13 9:45am Nonischemic cardiomyopathy resolved October 13, 2024 9:45am Dyslipidemia deleted October 13 9:45am [facility] Work Phone: [phone]) 446-906104-09-2025 Evaluation note* Diagnosis Onset Date Resolution Status Admit Date Dyspnea on exertion acute August 17, 2024 12:55pm Nonrheumatic aortic (valve) insufficiency acute August 17, 2024 12:55pm Atherosclerotic heart diseas e of [place] coronary artery without angina pectoris chronic August 17, 2024 12:55pm Cardiomyopathy chronic August 17, 2024 12:55pm Essential hypertension chronic Ap ril 2024 12:55pm Hyperlipidemia chronic August 17, 2024 12:55pm Aortic stenosis chronic October 13, 2024 9:45am CAD (coronary artery disease) chroni c October 13, 2024 9:45am History of recurrent deep ve in thrombosis (DVT) chronic October 13, 2024 9:45am Hypertension chronic October 13 9:45am Nonischemic cardiomyopathy resolved October 13, 2024 9:45am Dyslipidemia deleted October 13 9:45am Aortic stenosis chronic November 15, 2024 9:53am CAD (coronary artery disease) chroni c November 15, 2024 9:53am History of recurrent deep ve in thrombosis (DVT) chronic November 15, 2024 9:53am Hypertension chronic November 15 9:53am Nonischemic cardiomyopathy resolved November 15, 2024 9:53am Dyslipidemia deleted November 15 9:53am [facility] Work Phone: [phone]) [phone] Evaluation note* Diagnosis Onset Date Resolution Status Admit Date Dyspnea on exertion acute August 17, 2024 12:55pm Nonrheumatic aortic (valve) insufficiency acute August 17, 2024 12:55pm Atherosclerotic heart diseas e of [place] coronary artery without angina pectoris chronic August 17, 2024 12:55pm Cardiomyopathy chronic August 17, 2024 12:55pm Essential hypertension chronic Ap ril 2024 12:55pm Hyperlipidemia chronic August 17, 2024 12:55pm Aortic stenosis chronic October 13, 2024 9:45am CAD (coronary artery disease) chroni c October 13, 2024 9:45am Dyslipidemia chronic October 13 9:45am History of recurrent deep ve in thrombosis (DVT) chronic October 13, 2024 9:45am Hypertension chronic October 13 9:45am Nonischemic cardiomyopathy resolved October 13, 2024 9:45am Aortic stenosis chronic November 15, 2024 9:53am CAD (coronary artery disease) chroni c November 15, 2024 9:53am Dyslipidemia chronic November 15 9:53am History of recurrent deep ve in thrombosis (DVT) chronic November 15, 2024 9:53am Hypertension chronic November 15 9:53am Nonischemic cardiomyopathy resolved November 15, 2024 9:[address] [facility] Work Phone: [phone]) 962-526304-09-2025 Evaluation note* Diagnosis Onset Date Resolution Status Admit Date Dyspnea on exertion acute August 17, 2024 12:55pm Nonrheumatic aortic (valve) insufficiency acute August 17, 2024 12:55pm Atherosclerotic heart diseas e of [place] coronary artery without angina pectoris chronic August 17, 2024 12:55pm Cardiomyopathy chronic August 17, 2024 12:55pm Essential hypertension chronic Ap 2024 12:55pm Hyperlipidemia chronic August 17, 2024 12:55pm Aortic stenosis chronic October 13, 2024 9:45am CAD (coronary artery disease) chroni c October 13, 2024 9:45am Dyslipidemia chronic October 13 9:45am History of recurrent deep ve in thrombosis (DVT) chronic October 13, 2024 9:45am Hypertension chronic October 13 9:45am Nonischemic cardiomyopathy resolved October 13, 2024 9:45am Aortic stenosis chronic November 15, 2024 9:53am CAD (coronary artery disease) chroni c November 15, 2024 9:53am Dyslipidemia chronic November 15 9:53am History of recurrent deep ve in thrombosis (DVT) chronic November 15, 2024 9:53am Hypertension chronic November 15 9:53am Nonischemic cardiomyopathy resolved November 15, 2024 9:53am Dyspnea on exertion acute December 01, 2024 1:04pm Aortic stenosis chronic November 1:04pm CAD (coronary artery disease) chroni c December 01, 2024 1:04pm Dyslipidemia chronic December 01, 2 025 1:04pm History of recurrent deep ve in thrombosis (DVT) chronic December 01, 2024 1:04pm Hypertension chronic December 01, 025 1:04pm Nonischemic cardiomyopathy resolved December 01, 2024 1:04pm [facility] Work Phone: 1([phone]) 380-551503-26-2025 Radiology Diagnostic study note [facility] Imaging Services [address] [place], [place] [address] Chest WITH Contrast MR#: [id number] Acct: [id number] Name: EMIL TRONCOSO Rep #: [id number] : 1955 M 69 From: Jason Molina MD PCP: Dr. Yaz Zepeda MD Status: REG CLI Study:Chest WITH Contrast Date of Exam: 08/03/24 Exam# [id number] Ordering Dr: Patricio Zepeda MD PROCEDURE: CHEST WITH CONTRAST 08/03/2024 REASON FOR EXAM: CHEST PAIN SOB TECHNIQUE: Prone and supine chest CT with intravenous contrast, high resolution CT (HRCT) protocol. Coronal and Sagittal reconstruction series were provided. CONTRAST: Isovue 370 VOLUME: 100mL. One or more dose reduction techniques were used (e.g., Automated exposure control, adjustment of the mA and/or kV according to patient size, use of iterative reconstruction technique). RADIATION DOSE SUMMARY: CTDlvol: 29.27 mGy DLP: 444.50 mGycm COMPARISON: Chest x-ray of 05/27/2022. FINDINGS: The visualized upper abdomen shows no acute process. Colonic diverticulosis is seen at the visualized portion of the left colon. No evidence of pulmonary edema. No acute pneumonic process is seen. No pleural effusion or pneumothorax is evident. No pericardial effusion is seen. No evidence of pulmonary embolism. No adenopathy is seen. CT/Chest WITH Contrast IMPRESSION: No evidence of pulmonary embolism. Reading Location: [address] CC: Dr. Yaz Zepeda MD ~ Crew Team Member: Signed [facility]02-02-2025 Instructions* Patient Instructions* Bri Dickson APRN.[facility] - 06/12/2024 1:10 PM EST ASSESSMENT/PLAN: 1. Lower resp. tract infection - ICD9: 519.8, ICD10: J22 - DOXYCYCLINE HYCLATE 100 MG CAPSULE - COVID & INFLUENZA A/B & RSV PCR, ROUTINE- patient requests COVID testing. - Follow-up with your PCP in 3-5 days if symptoms have not improved or sooner if symptoms worsen. Patient advised to go to ER if he has worsening chest pain or continuous chest pain. - Discussed red flags and need for immediate medical evaluation if any occur. - Discussed supportive care treatment with fluids, rest and analgesia. - Discussed expected course of illness Bri Dickson APRN.[employer] [facility] NoteHNO ID: [id number] Author: BRI DICKSON APRN.[employer] Service: ? Author Type: Nurse Practitioner Type: Progress Notes Filed: 06/12/2024 13:10 Note Text: Subjective Cough Associated symptoms include chest pain (with deep breaths), chills, headaches and shortness of breath. Pertinent negatives include no ear pain and no sore throat. Emil Troncoso is a 69 year old male who presents with cough, chills, sinus congestion and drainage, intermittent shortness of breath for the past 5 days. States he feels pain in his upper chest with breathing. He has had some body aches. He has not taken any medication today. Review of Systems Constitutional: Positive for chills and malaise/fatigue. Negative for fever. HENT: Positive for congestion. Negative for ear pain and sore throat. Respiratory: Positive for cough, sputum production and shortness of breath. Cardiovascular: Positive for chest pain (with deep breaths). Gastrointestinal: Positive for nausea. Negative for abdominal pain and vomiting. Neurological: Positive for headaches. BP 142/82 Pulse 85 Temp 37.2 ?C (99 ?F) Resp 20 Wt 81.1 kg (178 lb 12.7 oz) SpO2 98% BMI 26.40 kg/m? PAST MEDICAL HISTORY Diagnosis Date Abdominal pain, left lower quadrant Acute myocardial infarction, unspecified site, episode of care unspecified 2004 Arrhythmia Talamantes's esophagus 2012 Chronic obstructive pulmonary disease (COPD) (HCC) Coronary artery disease Essential hypertension, benign Hemorrhage of gastrointestinal tract, unspecified Hx of blood clots Migraines Other and unspecified hyperlipidemia Sleep apnea 01/2015 Snoring PAST SURGICAL HISTORY Procedure Laterality Date APPENDECTOMY COLONOSCOPY FLX DX W/COLLJ SPEC WHEN PFRMD 02/27/2012 Colonoscopy repeat 3 years COLONOSCOPY FLX DX W/COLLJ SPEC WHEN PFRMD 03/09/15 Colonoscopy ESOPHAGOGASTRODUODENOSCOPY TRANSORAL DIAGNOSTIC 09/28/12 EGD ESOPHAGOGASTRODUODENOSCOPY TRANSORAL DIAGNOSTIC 08/17/2014 EGD LAPAROSCOPY SURG RPR INITIAL INGUINAL HERNIA 11/30/06 PAST SURGICAL HISTORY OF left knee ALLERGIES Bees, Duricef [Cefadroxil], and Niaspan [Niacin] MEDICATIONS albuterol HFA (PROVENTIL HFA, VENTOLIN HFA) 90 mcg/actuation inhaler Inhale 2 Puffs as instructed every 4 hours as needed. rosuvastatin (CRESTOR) 5 mg tablet Take 1 tablet by mouth daily at bedtime. verapamil ER 180 mg 24 hr capsule Take 1 capsule by mouth once daily. apixaban (ELIQUIS) 5 mg tab tab(s) Take 5 mg by mouth twice daily. albuterol HFA (PROAIR HFA) 90 mcg/actuation inhaler Inhale 2 Puffs as instructed every 4 hours as needed. pantoprazole (PROTONIX) 40 mg tablet Take 1 tablet by mouth once daily. nitroglycerin sublingual 0.4 mg SL tablet Dissolve 1 tablet under the tongue as needed. FOR CHEST PAIN. IF NO RELIEF CALL 911 Aspirin 81 mg Tab Take 81 mg by mouth. MULTI-VITAMIN ORAL Take by mouth once daily. doxycycline hyclate (VIBRAMYCIN) 100 mg capsule Take 1 capsule (100 mg) by mouth two times a day for 10 days. guaiFENesin (MUCINEX) 600 mg 12 hr tablet Take 2 tablets by mouth twice daily. (Patient not taking: Reported on 06/12/2024) benzonatate (TESSALON PERLES) 100 mg capsule Take 1 capsule by mouth three times daily as needed. (Patient not taking: Reported on 06/12/2024) losartan (COZAAR) 50 mg tablet Take 50 mg by mouth once daily. (Patient not taking: Reported on 06/12/2024) BUDESONIDE (PULMICORT INHALATION) Inhale 2 Puffs as instructed every morning. (Patient not taking: Reported on 06/12/2024) FAMILY HISTORY Problem Relation Age of Onset Cancer Brother prostate Cancer Father stomach Coronary Artery Disease Father Coronary Artery Disease Mother Diabetes Mother Diabetes Brother Hearing Loss Father Heart Father Heart Mother Hypertension Mother Hypertension Father Prostate Cancer Brother Psychiatry Sister Stroke Mother Social History Tobacco Use Smoking status: Never Smokeless tobacco: Never Substance Use Topics Alcohol use: No Comment: quit Drug use: No Objective Physical Exam Vitals and nursing note reviewed. Constitutional: General: He is not in acute distress. Appearance: Normal appearance. He is not ill-appearing. HENT: Right Ear: Tympanic membrane, ear canal and external ear normal. Left Ear: Tympanic membrane, ear canal and external ear normal. Nose: Congestion present. Mouth/Throat: Mouth: Mucous membranes are moist. Pharynx: Oropharynx is clear. Uvula midline. No oropharyngeal exudate or posterior oropharyngeal erythema. Cardiovascular: Rate and Rhythm: Normal rate and regular rhythm. Heart sounds: Murmur heard. Pulmonary: Effort: Pulmonary effort is normal. No respiratory distress. Breath sounds: Normal breath sounds. No wheezing or rales. Musculoskeletal: Cervical back: Neck supple. Lymphadenopathy: Cervical: No cervical adenopathy. Skin: General: Skin is warm and dry. Findings: No erythema or rash. (more content not included)...[facility]02-02-2025 History of Present illness Narrative* Bri Dickson APRN.SUBSTATION DESIGN DRAFTSPERSON - 06/12/2024 1:07 PM EST Subjective Cough Associated symptoms include chest pain (with deep breaths), chills, headaches and shortness of breath. Pertinent negatives include no ear pain and no sore throat. Emil Troncoso is a 69 year old male who presents with cough, chills, sinus congestion and drainage, intermittent shortness of breath for the past 5 days. States he feels pain in his upper chest with breathing. He has had some body aches. He has not taken any medication today. Review of Systems Constitutional: Positive for chills and malaise/fatigue. Negative for fever. HENT: Positive for congestion. Negative for ear pain and sore throat. Respiratory: Positive for cough, sputum production and shortness of breath. Cardiovascular: Positive for chest pain (with deep breaths). Gastrointestinal: Positive for nausea. Negative for abdominal pain and vomiting. Neurological: Positive for headaches. BP 142/82 Pulse 85 Temp 37.2 C (99 F) Resp 20 Wt 81.1 kg (178 lb 12.7 oz) SpO2 98% BMI 26.40 kg/m PAST MEDICAL HISTORY Diagnosis Date Abdominal pain, left lower quadrant Acute myocardial infarction, unspecified site, episode of care unspecified 2004 Arrhythmia Talamantes's esophagus 2012 Chronic obstructive pulmonary disease (COPD) (HCC) Coronary artery disease Essential hypertension, benign Hemorrhage of gastrointestinal tract, unspecified Hx of blood clots Migraines Other and unspecified hyperlipidemia Sleep apnea 01/2015 Snoring PAST SURGICAL HISTORY Procedure Laterality Date APPENDECTOMY COLONOSCOPY FLX DX W/COLLJ SPEC WHEN PFRMD 02/27/2012 Colonoscopy repeat 3 years COLONOSCOPY FLX DX W/COLLJ SPEC WHEN PFRMD 03/09/15 Colonoscopy ESOPHAGOGASTRODUODENOSCOPY TRANSORAL DIAGNOSTIC 09/28/12 EGD ESOPHAGOGASTRODUODENOSCOPY TRANSORAL DIAGNOSTIC 08/17/2014 EGD LAPAROSCOPY SURG RPR INITIAL INGUINAL HERNIA 11/30/06 PAST SURGICAL HISTORY OF left knee ALLERGIES Bees, Duricef [Cefadroxil], and Niaspan [Niacin] MEDICATIONS albuterol HFA (PROVENTIL HFA, VENTOLIN HFA) 90 mcg/actuation inhaler Inhale 2 Puffs as instructed every 4 hours as needed. rosuvastatin (CRESTOR) 5 mg tablet Take 1 tablet by mouth daily at bedtime. verapamil ER 180 mg 24 hr capsule Take 1 capsule by mouth once daily. apixaban (ELIQUIS) 5 mg tab tab(s) Take 5 mg by mouth twice daily. albuterol HFA (PROAIR HFA) 90 mcg/actuation inhaler Inhale 2 Puffs as instructed every 4 hours as needed. pantoprazole (PROTONIX) 40 mg tablet Take 1 tablet by mouth once daily. nitroglycerin sublingual 0.4 mg SL tablet Dissolve 1 tablet under the tongue as needed. FOR CHEST PAIN. IF NO RELIEF CALL 911 Aspirin 81 mg Tab Take 81 mg by mouth. MULTI-VITAMIN ORAL Take by mouth once daily. doxycycline hyclate (VIBRAMYCIN) 100 mg capsule Take 1 capsule (100 mg) by mouth two times a day for 10 days. guaiFENesin (MUCINEX) 600 mg 12 hr tablet Take 2 tablets by mouth twice daily. (Patient not taking:Reported on 06/12/2024) benzonatate (TESSALON PERLES) 100 mg capsule Take 1 capsule by mouth three times daily as needed. (Patient not taking: Reported on 06/12/2024) losartan (COZAAR) 50 mg tablet Take 50 mg by mouth once daily. (Patient not taking: Reported on 06/12/2024) BUDESONIDE (PULMICORT INHALATION) Inhale 2 Puffs as instructed every morning. (Patient not taking: Reported on 06/12/2024) FAMILY HISTORY Problem Relation Age of Onset Cancer Brother prostate Cancer Father stomach Coronary Artery Disease Father Coronary Artery Disease Mother Diabetes Mother Diabetes Brother Hearing Loss Father Heart Father Heart Mother Hypertension Mother Hypertension Father Prostate Cancer Brother Psychiatry Sister Stroke Mother Social History Tobacco Use Smoking status: Never Smokeless tobacco: Never Substance Use Topics Alcohol use: No Comment: quit Drug use: No Objective Physical Exam Vitals and nursing note reviewed. Constitutional: General: He is not in acute distress. Appearance: Normal appearance. He is not ill-appearing. HENT: Right Ear: Tympanic membrane, ear canal and external ear normal. Left Ear: Tympanic membrane, ear canal and external ear normal. Nose: Congestion present. Mouth/Throat: Mouth: Mucous membranes are moist. Pharynx: Oropharynx is clear. Uvula midline. No oropharyngeal exudate or posterior oropharyngeal erythema. Cardiovascular: Rate and Rhythm: Normal rate and regular rhythm. Heart sounds: Murmur heard. Pulmonary: Effort: Pulmonary effort is normal. No respiratory distress. Breath sounds: Normal breath sounds. No wheezing or rales. Musculoskeletal: Cervical back: Neck supple. Lymphadenopathy: Cervical: No cervical adenopathy. Skin: General: Skin is warm and dry. Findings: No erythema or rash. Neurological: Mental Status: He is alert. ASSESSMENT/PLAN: 1. Lower resp. tract infection - ICD9: 519.8, ICD10: J22 - DOXYCYCLINE HYCLATE 100 MG CAPSULE - COVID & INFLUENZA A/B & RSV PCR, ROUTINE- patient requests COVID testing. - Follow-up with your PCP in 3-5 days if symptoms have not improved or sooner if symptoms worsen. Patient advised to go to ER if he has worsening chest pain or continuous chest pain. - Discussed red flags and need for immediate medical evaluation if any occur. - Discussed supportive care treatment with fluids, rest and analgesia. - Discussed expected course of illness Bri Dickson APRN.SUBSTATION DESIGN DRAFTSPERSON [facility] Discharge summary Author Daniel Gutiérrez [facility] April 09, 2023 12:19pm Note Date/Time April 09, 2023 12:18pm [facility] Medical Records Department [address] [place] [address] Instructions for Home/Discharge Instructions 04/09/23 1217 MR#: [id number] Acct: [id number] Name: EMIL TRONCOSO Rep #:[id number] : 1955 67 From: Daniel mckeon MD PCP: Dr. Yaz Zepeda MD Status:[facility] [place] Discharge Instructions Procedure Hernia Diet Discharge Diet: Light diet - advance as tolerated Activity Discharge Activity: May Not Drive (for 2-3 days or while taking narcotic pain meds.) and May Shower (with the bandage in place 1-2 days after surgery.) Lifting Restrictions: 20 pounds for 4 weeks. Additional Activity Instructions:: Climbing stairs is fine, walking is encouraged. Sitting in bed may be uncomfortable. Sitting up using your lateral muscles (sitting up sideways) is usually more comfortable. Do not drive, work heavy equipment of sign legal documents for 24 hours. If your hernia repair was an inguinal repair, you may have scrotal swelling, an ice pack and/or athletic support can provide more comfort. Pain medications may cause nausea, you should typically eat light foods as you take your pain medications. Pain medications may also cause constipation. If you have difficulty with this, discuss with your doctor. Dressing / Incision Call your doctor if your incision/area has: Continuous Slow Oozing, Sudden Increased Bleeding, Increased Pain/ Swelling, Increased Redness and Foul Smelling Discharge Call your doctor if you observe: Fever of 101 or Higher Suture Line Care: Avoid Pulling/Pushing and Avoid Pinching/Bending Remove Dressing in: 2 days (Remove clear bandages in 2 days, remove Steri- Stripsin 7 to 10 days.) Cleanse incision/area with: Soap & Water Follow Up Care Please Follow Up With: Daniel Gutiérrez MD When: Please call to schedule 2 week follow up appointment. [phone] Test Results: Test results from this visit will be discussed in further detail at your follow- up appointment, if applicable. Discharge Plan Admission Attending Provider: Daniel Gutiérrez Primary Care Provider: Yaz Zepeda Consulting Providers: Kiko Oseguera Instructions Additional Instructions / Restrictions: Alternate ibuprofen and Tylenol for pain, oxycodone for breakthrough pain. Resume aspirin and Eliquis on Thursday Discharge Orders/Prescriptions Prescriptions: New acetaminophen 325 mg Tablet 650 mg PO Q4H PRN PRN (Reason: Pain 1-10 Or Fever) Qty: 0 0RF oxycodone 5 mg Tablet 5 - 10 mg PO Q4H PRN PRN (Reason: Pain Score 4-10) 5 Days Qty: 10 0RF No Action verapamil 180 mg capsule,ext rel. pellets 24 hr 180 mg PO QHS nitroglycerin 0.4 mg tablet, sublingual 0.4 mg SUBLINGUAL Q5-15M epinephrine 0.3 mg/0.3 mL auto-injector 0.3 mg IM ONCE PRN (Reason: ALLERGY) Rx Instructions: as a single dose Arnuity Ellipta 100 mcg/actuation blister with device 1 inh inhalation DAILY tizanidine 4 mg capsule 4 mg PO Q8H PRN (Reason: MUSCLE RELAXANT) pantoprazole 40 MG tablet 40 mg PO DAILY Patient Comments: acid reflux aspirin 81 MG tablet,chewable 81 mg PO QHS Hold Instructions: PRE SURGERY Patient Comments: antiplatelet albuterol sulfate 1 PUFF inhaler 2 puff INHALATION Q4H PRN PRN (Reason: Sob &/Or Wheezing) Patient Comments: Shortness of breath Eliquis 5 MG tablet 5 mg PO BID Hold Instructions: PRE SURGERY losartan 50 MG tablet 25 mg PO DAILY Patient Comments: TAKE 1 TABLET BY MOUTH EVERY DAY multivitamin with minerals 1 EACH tablet 1 tab PO DAILY meclizine 25 MG tablet 25 mg PO TID PRN PRN (Reason: dizziness, vertigo) Qty: 30 0RF rosuvastatin 10 mg tablet 5 mg PO QHS Referrals / Follow Up: Yaz Zepeda MD [Primary Care Provider] - Disposition Disposition (needs filled in before D/C Order can be placed): Home, Self Care 04/09/23 1219<Electronically signed by Daniel Gutiérrez MD>Daniel Gutiérrez MD CC: Dr. Kiko Oseguera MD; Dr. Yaz Zepeda MD ~ Signed [facility] Work Phone: 1(671) 466-204611-30-2023 Procedure [facility] 04-09-2023 History and physical note Author Daniel Gutiérrez [facility] April 09, 2023 10:02am Note Date/Time April 09, 2023 10:02am [facility] Medical Records Department [address] [place] [address] History & Physical Exam 04/09/23 1001 MR#: [id number] Acct: [id number] Name: EMIL TRONCOSO Rep #:[id number] : 1955 67 From: Daniel mckeon MD PCP: Dr. Yaz Zepeda MD Status:[facility] Location: [place] [address] History and Physical Date of Admission: 04/09/23 Intake Vital Signs 10/23/2312:03 03/26/2309:41 Height 5 ft 9 in 5 ft 9 in Weight: 154 lb 8 oz 152 lb 8 oz BMI 22.8 22.5 BP 116/69 130/60 H Blood Pressure Location Lt brachial Rt brachial Position Sitting Sitting Respiration 16 18 Pulse 65 55 L Pulse Source Auscultation Monitor Temp 97.6 F L Temp Source Temporal Pulse Oximetry (%) 97 Oxygen Delivery Method room air Intake Visit Reasons: INGUINAL HERNIA Chief Complaint: inguinal hernia [employer] Required: No Is patient in pain?: No Allergies bee venom protein (honey bee) Allergy (Verified 03/26/23 09:43) Anaphylaxiscefadroxil hydrate [From Duricef] Allergy (Verified 03/26/23 09:43) Rashniacin [From Niaspan Extended-Release] Allergy (Verified 03/26/23 09:43) Rashazatadine Adverse Reaction (Verified 03/26/23 09:43) Otherpseudoephedrine Adverse Reaction (Verified 03/26/23 09:43) Other Medications aspirin 81 mg chewable tablet 81 mg PO [facility] 08/08/13 [History Confirmed 03/26/23] pantoprazole 40 mg tablet,delayed release 40 mg PO DAILY reflux 03/31/14 [History Confirmed 03/26/23] albuterol sulfate 90 mcg/actuation aerosol inhaler 2 puff inhalation Q4H PRN PRNSob &/Or Wheezing 04/01/16 [History Confirmed 03/26/23] apixaban 5 mg tablet (Eliquis) 5 mg PO BID blood thinner 10/01/18 [History Confirmed 03/26/23] losartan 50 mg tablet 50 mg PO DAILY blood pressure 10/01/18 [History Confirmed 03/26/23] nitroglycerin 0.4 mg sublingual tablet 0.4 mg sublingual Q5-15M chest pain 10/26/18 [History Confirmed 03/26/23] verapamil 180 mg 24 hr capsule,extended release 180 mg PO QHS blood pressure 10/26/18 [History Confirmed 03/26/23] multivitamin with minerals 1 tab PO DAILY supplement 05/06/19 [History Confirmed 03/26/23] epinephrine 0.3 mg/0.3 mL injection, auto-injector 0.3 mg IM ONCE PRN ALLERGY 11/01/19 [History Confirmed 03/26/23] meclizine 25 mg tablet 25 mg PO TID PRN PRN dizziness, vertigo #30 tabs 02/24/20[Rx Confirmed 03/26/23] fluticasone furoate 100 mcg/actuation blister powder for inhalation 1 inh inhalation DAILY 07/16/21 [History Confirmed 03/26/23] tizanidine 4 mg capsule 4 mg PO Q8H PRN MUSCLE RELAXANT 10/18/21 [History Confirmed 03/26/23] rosuvastatin 10 mg tablet 10 mg PO QHS cholesterol #90 tabs 06/03/22 [Rx Confirmed 03/26/23] isosorbide dinitrate 30 mg tablet 30 mg PO DAILY PRN 10/23/22 [History Confirmed 03/26/23] [facility] Medical History Abdominal pain Abnormal nuclear stress test Abrasion Anxiety Arthritis Asthma Atherosclerotic heart disease of [place] coronary artery without angina pectoris Talamantes's esophagus Cancer Cardiology follow-up encounter Carotid artery occlusion without infarction Chest pain Chronic cough CPAP (continuous positive airway pressure) dependence Depression Diverticulitis Easy bruising Elevated troponin I level (2005) Essential hypertension Excessive bleeding Facial paresthesia (07/2018) Fatty liver Gastric reflux Gastroesophageal reflux disease GI bleed History of echocardiogram History of edema History of GI bleed History of heart attack History of stress test Hyperlipidemia Hypertension Insomnia Leg cramps Migraines Myalgia Non-smoker Nonischemic cardiomyopathy Nonobstructive atherosclerosis of coronary artery Obstructive sleep apnea Osteoarthritis Paroxysmal supraventricular tachycardia Pericarditis Recurrent deep vein thrombosis (DVT) Restless legs Shortness of breath on exertion Sleep apnea Squamous cell carcinoma Syncope Type 2 diabetes mellitus without complication Vertigo Vertigo Wears glasses Wears partial dentures Surgical History History of appendectomy History of inguinal hernia repair History of left heart catheterization (06/03/22) History of left knee surgery Family History Brother Cancer prostate DiabetesFather Cancer stomach CAD (coronary artery disease) Heart disease Hypertension Hearing lossMother CAD (coronary artery disease) Diabetes Heart disease Hypertension CVA (cerebral vascular accident) Social History Smoking Status: Never smoker alcohol intake: never substance use type: does not use caffeine: Yes Type: coffee Number of servings: 3 HPI HPI HPI: Patient is a 67-year-old male here with a right inguinal bulge. He says has been present for a long time. He has had a left inguinal hernia repair in the past. He reports it is becoming more painful and it hurts especially after eating all up his right side. He denies fevers or chills. He says he is havingnormal bowel movements. ROS General General: Yes weight change and fatigue Skin Skin: Yes changing moles Cardio Cardiovascular: Yes murmur, high blood pressure and heart attack Psych Psychiatric: Yes anxiety Resp Respiratory: Yes sleep apnea Gastro Gastrointestinal: Yes abdominal pain, Yes nausea or vomiting and Yes diarrhea Clarence Hematologic: Yes blood thinners and Yes blood clots Neuro Neurologic: Yes numbness and Yes tingling Exam Const General: cooperative Orientation: alert and oriented x3 HENMT Head: normal to inspection Neck Neck: normal visual inspection and full ROM Chest Chest palpation & inspection: normal inspection of the chest Resp Effort & Inspection: normal respiratory effort Auscultation: clear to auscultation bilaterally Cardio Rate: regular rate Rhythm: regular rhythm GI Inspection: non-distended Palpation: soft, hernia direct inguinal on the right and nontender Skin General: no rashes or lesions noted Neuro General: patient alert and patient oriented x3 Extrem General: full ROM Psych Appearance: grossly normal Mental Status: mental status grossly normal Assessment and Plan Assessment and Plan (1) Right inguinal hernia: Status: Acute Plan: Patient has what appears to be a direct hernia on the right side which is reducible. I discussed robotic assisted right inguinal hernia repair with mesh. I discussed the procedure in detail as well as the risks including not limited to bleeding, infection, injury to other organ such as the bowel, bladder, blood supply to the testicle. Patient understands all the risks and is willing to proceed. The patient will stop his Eliquis for 2 days and aspirin for 5 days prior to surgery. Daniel Gutiérrez MD Pager: [facility] [address] [place] [address], [address] [place] [address] Office: I have examined the patient and the H&P has been reviewed. There are no clinicalchanges since date of exam. 04/09/23 1002 <Electronically signed by Daniel Gutiérrez MD> Cosigner Signature (if applicable): CC: Dr. Daniel Gutiérrez MD; Dr. Yaz Zepeda MD~ Signed [facility] Work Phone: 1(193) 211-869502-28-2023 Evaluation + Plan note Future Scheduled Tests Radiology* MRA/MRI Brain w/o contrast 07/08/22 * MRI Brain w/ + w/o Contrast 07/08/22 [facility] 01-24-2023 History and physical note Author Dr. Torres [facility] June 03, 2022 10:06am Note Date/Time June 02, 2022 3 :45pm [facility] Medical Records Department [address] [place] [id number] History & Physical Exam 06/02/22 1542 MR#: [id number] Acct: [id number] Name: TRONCOSOCONNERRoldan Pritchett Rep #:[id number] : 1955 66 From: Ciro Torres MD PCP: Dr. Yaz Zepeda MD Status:[facility] [place] Location: [facility] History and Physical Date of Admission: 06/03/22 [facility] [address] [place] [address] MR#: [id number] Acct: [id number] Name:EMIL PACHECO Rep #: [id number] : 1955 Provider: Dr. Ciro Torres MD Age/Sex:? 66/M ?[place] [facility] [place] Status: Signed HPI HPI History of Present Illness Details: This is a 66-year-old gentleman with a history of CAD, a non-CAD related cardiomyopathy, hyperlipidemia, and hypertension who has been followed by my colleague Dr. Aldridge who now presents for outpatient cardiovascular follow-up based upon concerns of chest discomfort.? He states that he has had intermittentconcerns of chest discomfort both at rest and with exertion that radiates acrosshis chest.? He notes he had had an episode that radiated into his left shoulder and down his left upper extremity.? He has had shortness of breath and dyspnea which she is attributed to underlying pulmonary disease.? He does not describe ongoing nausea or emesis or diaphoresis.? There is been 2 episodes he recalls ofa brief rapid heart rate.? He believes these are commensurate with his history of tachycardia.? He does not recall any episodes of near syncope or syncope. He states he has his lipid labs followed by his PCP.? He was in visiting his PCPand he was noted to have a cardiac murmur.? This led to an echocardiogram performed at [facility] on 04-17-2022. According to their report the left ventricle was normal with an LVEF of 55 to 60%.? The mitral valve had mild MR.? The aortic valve was sclerotic with mild AI.? The tricuspid valve was reported as having mild TR. He has undergone previous noninvasive and invasive cardiovascular studies in [facility].? Some of his studies are noted below.? It is noted over time that his LV systolic function/LVEF, which was reported at 25% in 2005, had normalized. He had an ECG in the office today.? He was noted to be in sinus rhythm with an RSR prime pattern in V1.? He had no acute electrocardiographic changes. Intake Vital Signs ? 02/27/2206:40 04/25/2214:19 04/25/2214:21 Height 5 ft 9 in 5 ft 9 in 5 ft 9 in Weight: ? ? 172 lb 2 oz BMI ? ? 25.4 BP ? ? 132/80 H Blood Pressure Location ? ? Lt brachial Position ? ? Sitting Respiration ? ? 18 Pulse ? ? 80 Pulse Source ? ? Auscultation Intake Visit Reasons:?OVERDUE FOR OV [employer] Required: No Accompanied by: Self Allergies bee venom protein (honey bee) Allergy (Verified 04/25/22 14:22) Anaphylaxiscefadroxil hydrate [From Duricef] Allergy (Verified 04/25/22 14:22) Rashniacin [From Niaspan Extended-Release] Allergy (Verified 04/25/22 14:22) Rashazatadine Adverse Reaction (Verified 04/25/22 14:22) Otherpseudoephedrine Adverse Reaction (Verified 04/25/22 14:22) Other Medications aspirin 81 mg chewable tablet 81 mg PO QHS heart health 08/08/13 [History Confirmed 04/25/22] pantoprazole 40 mg tablet,delayed release 40 mg PO DAILY reflux 08/08/13 [History Confirmed 04/25/22] albuterol sulfate 90 mcg/actuation aerosol inhaler 2 puff inhalation Q4H PRN PRNSob &/Or Wheezing 04/01/16 [History Confirmed 04/25/22] rosuvastatin 5 mg tablet 5 mg PO QHS cholesterol 01/05/17 [History Confirmed 04/25/22] apixaban 5 mg tablet (Eliquis) 5 mg PO BID blood thinner 10/01/18 [History Confirmed 04/25/22] losartan 50 mg tablet 50 mg PO DAILY blood pressure 10/01/18 [History Confirmed 04/25/22] nitroglycerin 0.4 mg sublingual tablet 0.4 mg sublingual Q5-15M chest pain 10/26/18 [History Confirmed 04/25/22] verapamil 180 mg 24 hr capsule,extended release 180 mg PO QHS blood pressure 10/26/18 [History Confirmed 04/25/22] multivitamin with minerals 1 tab PO DAILY supplement 05/06/19 [History Confirmed 04/25/22] epinephrine 0.3 mg/0.3 mL injection, auto-injector 0.3 mg IM ONCE PRN ALLERGY 11/01/19 [History Confirmed 04/25/22] meclizine 25 mg tablet 25 mg PO TID PRN PRN dizziness, vertigo #30 tabs 02/24/20[Rx Confirmed 04/25/22] fluticasone furoate 100 mcg/actuation blister powder for inhalation 1 inh inhalation DAILY 07/16/21 [History Confirmed 04/25/22] isosorbide dinitrate 30 mg tablet 30 mg PO DAILY 10/18/21 [History Confirmed 04/25/22] tizanidine 4 mg capsule 4 mg PO Q8H PRN MUSCLE RELAXANT 10/18/21 [History Confirmed 04/25/22] PFSH Medical History? Abdominal pain Abrasion Anxiety Arthritis Asthma Atherosclerotic heart disease of [place] coronary artery without angina pectoris Talamantes's esophagus Cancer Cardiology follow-up encounter Carotid artery occlusion without infarction Chest pain Chronic cough CPAP (continuous positive airway pressure) dependence Depression Diverticulitis Easy bruising Elevated troponin I level (2005) Essential hypertension Excessive bleeding Facial paresthesia (07/2018) Fatty liver Gastric reflux Gastroesophageal reflux disease GI bleed History of echocardiogram History of edema History of GI bleed History of heart attack History of stress test Hyperlipidemia Hypertension Insomnia Leg cramps Migraines Myalgia Non-smoker Nonischemic cardiomyopathy Nonobstructive atherosclerosis of coronary artery Obstructive sleep apnea Osteoarthritis Paroxysmal supraventricular tachycardia Pericarditis Recurrent deep vein thrombosis (DVT) Restless legs Shortness of breath on exertion Sleep apnea Squamous cell carcinoma Syncope Type 2 diabetes mellitus without complication Vertigo Vertigo Wears glasses Wears partial dentures Surgical History? History of appendectomy History of inguinal hernia repair History of left heart catheterization (01/09/20) History of left knee surgery Family History? Brother Cancer ?? ? prostate DiabetesFather Cancer ?? ? stomach CAD (coronary artery disease) Heart disease Hypertension Hearing lossMother CAD (coronary artery disease) Diabetes Heart disease Hypertension CVA (cerebral vascular accident) Social History? Smoking Status:? Never smoker alcohol intake:? never substance use type:? does not use caffeine:? Yes Type: coffee Number of servings: 3 ROS Const Const: Positive for fatigue (increased; tires easier); Negative for weakness, body ache, fever(s), headache(s), chills, frequent falls,night sweats, daytime sleepiness, difficulty sleeping, excessive sweating, weight gain, weight loss, increased appetite, poor appetite, anorexia or other Eyes Eyes: Negative for blurry vision or double vision ENT ENT: Positive for balance problems (occasional); Negative for headache(s) or dizziness Cardio Chest Pain: Yes (occasional) Character: dull Onset: at rest, exercise and with meals Location: mid sternal (radiates out Rt/Lt, can radiate into left shoulder) Duration: hours Relieving: other (has used SL nitro has helped at times) Palpitations: No Edema: None Muscle aches with walking: Bilateral (calf muscles) Resp Respiratory: Positive for SOB with activity (occasional increased) and wheezing (occasional); Negative for SOB at rest, SOB orthopnea\SOB lying down, Cough, Coughing up blood/hemoptysis, chest congestion, pain on inspiration, snoring, stridor, crackles, paroxysmal nocturnal dyspnea or other Musc Musc: Positive for balance problems (occasional); Negative for muscle aches/ myalgia, muscle weakness or joint pain Neuro Neuro: Negative for dizziness, lightheadedness, near syncope, syncope, orthostatic symptoms, frequent falls, headache(s), weakness, confusion, memory loss, restless legs, blurry vision, double vision, vertigo, seizures, lack of coordination or other Endo Endo: Positive for fatigue (increased; tires easier); Negative for excessive sweating Cardiology Exam Const Appearance: cooperative, healthy appearing, comfortable, no acute distress, welldeveloped and well groomed Nutritional Appearance: well nourished and overweight Orientation: alert, awake and oriented x3 Head Head: normal to inspection, normocephalic and atraumatic Ears: hearing grossly normal bilaterally Nose: external nose normal Face and Sinus: face symmetric Eyes Eyelids: eyelids normal Conjunctivae: conjunctivae normal Pupils: PERRL EOM: EOM intact bilaterally Neck Neck: normal visual inspection, full ROM and no JVD Carotids: normal carotid upstroke Chest Chest inspection: normal inspection of the chest, symmetric chest movement and normal respiratory effort; Negative cough Auscultation: Bilateral: Clear to Auscultation Cardio Palpation: normal PMI Rate: regular rate Rhythm: regular rhythm Heart sounds: S1 normal and S2 normal; Negative rub or gallop Murmur: Grade 3/6, harsh, mid systolic, LLSB, apex, LVOT, sternal notch and radiates to carotids GI GI: normal to inspection, soft and bowel sounds present Neuro General: patient alert, patient awake, patient oriented x3 and moves all extremities Skin Skin: no rashes or lesions noted Extremities Pulses: Normal: Right Posterior Tibial Pulse, Left Posterior Tibial Pulse, RightRadial Pulse and Left Radial Pulse Lower Extremity Edema: None: Bilateral Psych Psychological: normal affect Supplemental Info Supplemental Information Echocardiogram from 05/06/2019: Interpretation Summary The estimated ejection fraction is 75 %. Normal diastology for age. Trivial tricuspid valve insufficiency. Right ventricular systolic pressure estimated to be 30 mmHg. Mild aortic stenosis. Trivial aortic valve insufficiency. Compared to echo report dated 08/30/2018, no appreciable changes noted. The studywas technically difficult. Contrast injection was performed. Echocardiogram from 07/17/2020: Interpretation Summary Normal LV size. Left ventricular systolic function is normal. The estimated ejection fraction is 70 %. Stage 1 diastolic dysfunction. Mild (1+) aortic valve insufficiency. Contrast injection was performed. Compared to prior study, there is no significant change. Stress Test Report: 08-25-2018 Exercise myocardial perfusion stress test. 63-year-old male with a history of chest pain. Medications: Eliquis, verapamil, Protonix, losartan. Stress protocol: Resting EKG demonstrates sinus bradycardia with a rate of 56 bpm normal intervals are noted resting blood pressure is 128/80 mmHg.? The patient exercised according to regular Clyde protocol for total duration of 7 minutes and 15 seconds.? The maximum heart rate was 144 bpm which was 92% of maximum predicted heart rate the maximum workload was 8.9 metabolic equivalents.? Patient maintained sinus rhythm throughout the recording.? At rest there were noST or T wave changes noted suggest ischemia at peak exercise upsloping ST changes were noted to suggest ischemia.? The resting blood pressures 128/80 witha peak blood pressure 160/84 mmHg. Myocardial perfusion protocol. 11.0 mCi of technetium 99m sestamibi was injected at rest.? The patient exercised according to regular Clyde protocol.? At peak exercise 33.2 mCi of technetium 99m sestamibi was injected stress images were obtained stress and rest images were reconstructed and compared in the short axis vertical long horizontal long axis.? Gated images were also obtained per Perfusion SPECT analysis: Review of the stress images demonstrate normal uptake of tracer noted in all areas of the myocardium.? The resting images similarly demonstrate normal uptakeof tracer noted in all areas of the myocardium.? No areas of reversibility are noted suggest ischemia no previous infarct is noted. Gated SPECT analysis: The gated ejection fraction is 72%. Conclusion: Normal exercise myocardial perfusion stress test at a moderate workload. Preserved ejection fraction. Heart catheterization 01/09/2020: CONCLUSIONS Moderate proximal RCA non obstructive RECOMMENDATIONS Medical therapy CORONARY ANGIOGRAPHY DOMINANCE:? Right Dominant LEFT HEART ASSESSMENT Left Ventricular Ejection Fraction: by LV Gram 60 % Normal LV wall motion Normal Left Ventricular systolic function LEFT MAIN: Non-obstructive LEFT ANTERIOR DESCENDING ARTERY: Mild luminal irregularities CIRCUMFLEX ARTERY: Mild luminal irregularities RIGHT CORONARY ARTERY: PROX RCA: 60 % Stenosis Labs: ?? ? LDL Cholesterol 115 mg/dL (0-130) ?? ? HDL Cholesterol 54 mg/dL (40-) ?? ? Triglycerides 80 mg/dL (-199) A ?? ? VLDL Cholesterol 16 mg/dL (5-40) Diagnostics: ?? ? Electrocardiogram ? Echocardiogram ? Stress Test NM ? Stress Test ? Cardiac Catheterization ? Chest X-Ray ? Venous Doppler Study ? Pulmonary: ?? ? No Data to Display Assessment and Plan Assessment and Plan (1) Atherosclerotic heart disease of [place] coronary artery without angina pectoris: ?Status:?Acute ?Comment: Nonobstructive per cardiac cath 01/09/2020 ?Plan: At the present time he will continue risk factor modification and medical management. Based upon his symptoms and his history he was asked undergo reevaluation with an exercise tolerance test/imaging study. Depending upon the findings he may or may not require reevaluation in the cardiac catheterization laboratory. 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 It appears over time his LV wall motion and systolic function and LVEF improved/normalized. At the present time he will continue his current medical management. (3) Hyperlipidemia: ?Status:?Chronic ?Qualifiers: ?Hyperlipidemia type:?unspecified? Qualified Code(s):?E78.5 - Hyperlipidemia, unspecified ?Plan: A copy of his lipid labs will be appreciated for continuity of care (4) Essential hypertension: ?Status:?Chronic ?Plan: He will continue antihypertensive therapy with adjustment as needed. (5) Chest pain in adult: ?Status:?Acute ?Plan: He does have chest discomfort. Again he describes symptoms that are concerning for angina pectoris.? At same time he does not have all of the classic symptoms of angina pectoris.? Thus it was felt reasonable that he undergo noninvasive valuation as described with subsequent invasive evaluation as deemed appropriate. ? ? ? Orders: Orders 12 Lead EKG performed by [facility] Today I25.1 0 - Atherosclerotic heart disease of [place] coronary artery without angina pectoris ? Nuclear Stress Test - [facility] Today E78.5 - Hyperlipidemia, unspecified, I10 - Essential (primary) hypertension, I25.10 - Atherosclerotic heart disease of [place] coronary artery without angina pectoris, R07.9 - Chest pain, unspecified ? Plan Details Additional Comments: Thank you for allowing me to participate in the care of your patient.? Please don't hesitate to call if any issues arise. This note was generated using a voice recognition system and there may be incorrect words, spelling or punctuation that were not noted when reviewing the office note prior to saving. Follow Up: ? ? 6 Months (PFM ) COVID (Procedure Consent) Procedure Criteria Procedure Criteria: Yes Elective The surgeon/proceduralist and patient have discussed in detail the risk of exposure to and/or potential harm posed by the COVID-19 virus with having a surgery/procedure at this time versus the risk of? delaying the surgery/procedure. It is not possible to know either the risk of delaying the surgery or procedure or chance of getting an infection with perfect accuracy, but a joint decision was made between the patient and the surgeon/proceduralist ?to proceed at this time with the scheduled surgery/procedure as indicated on the consent form. Coding Level of Care Code Off vis,est,level 4 Diagnoses Atherosclerotic heart disease of [place] coronary artery without angina pectoris?I25.10 Cardiomyopathy? I42.9 Hyperlipidemia? E78.5 ? ? ? Hyperlipidemia type: unspecified Essential hypertension? I10 Chest pain in adult? R07.9 Coding Level of Care Code Off vis,est,level 4 Diagnoses Atherosclerotic heart disease of [place] coronary artery without angina pectoris?I25.10 Cardiomyopathy? I42.9 Hyperlipidemia? E78.5 ? ? ? Hyperlipidemia type: unspecified Essential hypertension? I10 Chest pain in adult? R07.9 04/25/22 1532 <Electronically signed by Ciro Torres MD> Date Ciro Torres MD Cosigner Signature: Date (if applicable) ? CC:? Dr. Yaz Zepeda MD ~ Assessment & Plan Addt'l Comments Addendum: Date: 06-03-2022 I have examined the patient the following changes are noted: The patient underwent further evaluation with an exercise tolerance test/nuclearimaging study. This was performed on 05-08-2022. The results are noted below. Stress Test Report Date: 05-08-2022 Procedure: Exercise tolerance test/imaging study Indications: Chest pain; CAD; cardiomyopathy; hyperlipidemia; hypertension Consent: Per the patient Procedure: The patient exercised on a Clyde protocol for 9 minutes completing Stage III achieving a peak heart rate of 131 bpm (86% predicted maximal heart rate) with resting blood pressure of 132/88 mmHg and a peak blood pressure 160/84 mmHg and a peak MET capacity of 10 METs. The baseline ECG demonstrated normal sinus rhythm.? The peak exercise ECG demonstrated somatic/motion artifact with no obvious ECG changes. There were no cardiac dysrhythmias pretest, during exercise, or recovery.? The functional capacity was considered good. There was no complaint of chest discomfort during exercise or recovery. The examination was discontinued secondary to dyspnea. Impression: 1.? Technically adequate (percent predicted maximal heart rate greater than 85%)exercise tolerance test 2.? Peak exercise ECG with somatic/motion artifact with no obvious ECG changes 3.? There were no cardiac dysrhythmias pretest, during exercise, or recovery 4.? Nuclear images pending Myocardial perfusion imaging study: Technique: The patient was injected with 11.8 mCi of technetium 99m Cardiolite and subsequently rest SPECT Cardiolite nuclear imaging was obtained in the horizontal long, vertical long, and short axis views. The patient exercised on aBruce protocol for 9 minutes completing Stage III achieving a peak heart rate of131 bpm (86% predicted maximal heart rate) with resting blood pressure of 132/88mmHg and a peak blood pressure 160/84 mmHg and a peak MET capacity of 10 METs. The patient was injected with 33.5 mCi of technetium 99m Cardiolite and subsequently stress SPECT Cardiolite nuclear imaging was obtained in the horizontal long, vertical long, and short axis views.? A gated Cardiolite study at peak stress was obtained. Interpretation: Rest and stress SPECT Cardiolite nuclear imaging status post realignment, normalization, and attenuation correction, demonstrates the appearance of body motion during image acquisition and an area of diminished myocardial fusion/tracer uptake in the apical segments which appears to be somewhat more prominent following stress as opposed to rest.? There is end systolic thickeningand brightening.? The gated Cardiolite study demonstrates myocardial thickening and inward wall motion.? The reported LVEF is 68%. Impression: 1.? Rest and stress SPECT Cardiolite nuclear imaging demonstrate myocardial perfusion changes in the apical areas at rest and stress but appearing somewhat more prominent following stress potentially compatible with an element of physiologic apical thinning and shifting soft tissue attenuation/artifact, however, an element of stress-induced myocardial ischemia cannot necessarily be excluded. 2.? The gated Cardiolite study reports an LVEF of 68%. Based upon the patient's evaluation and objective findings a recommendation was made to proceed with further evaluation with diagnostic cardiac catheterization. The procedure and risk were discussed with the patient. He was agreeable to this approach. This note was generated using a voice recognition system and there may be incorrect words, spelling or punctuation that were not noted when reviewing the office note prior to saving. 06/03/22 1006 <Electronically signed by Ciro Torres MD> Cosigner Signature (if applicable): CC: Dr. Ciro Torres MD; Dr. Yaz Zepeda MD~ Signed [facility] Work Phone: Evaluation + Plan note No data available for this section [facility] Evaluation note* Diagnosis Onset Date Resolution Status Talamantes's esophagus acute Encounter for screening colonoscopy acute [facility] Work Phone: Evaluation note* Diagnosis Onset Date Resolution Status Diverticular disease acute Gastroesophageal reflux disease acute Atherosclerotic heart diseas e of [place] coronary artery without angina pectoris acute Cardiomyopathy acute Chest pain in adult acute Essential hypertension chron ic Hyperlipidemia chronic [facility] Work Phone: Evaluation note* Diagnosis Onset Date Resolution Status Right inguinal hernia acute [facility] Work Phone: Evaluation note* Diagnosis Lower resp. tract infection- Primary Other diseases of respiratory system, not elsewhere classified [facility] information available[facility] Work Phone: Hospital Discharge instructions No data available for this section [facility] Hospital Discharge instructionsAmbulatory Orders* Phase II, Outpatient Cardiac Rehab Location: None [facility] Work Phone: Hospital Discharge instructionsAdditional Instructions Your cardiac workup was largely normal. Your EKG did not show any acute changes. There does not appear to be any acute cardiac process going on right now. Continue to take your prescribed medication. Recommend using Tylenol and even prescribed a muscle relaxer for your pain. Please call the cardiology office tomorrow to arrange close outpatient follow[facility] Work Phone: Progress note No data available for this section [facility] Reason for referral (narrative)No reason for referral information availableWGalion Community Hospital Work Phone: Summary Purpose Family History No Family History Records Found Relationship Condition Age at Onset Recorded Date/T shira brother Malignant neoplasm Unknown Diabetes mellitus Unknown father Malignant neoplasm Unknown Coronary artery disease Unknown Cardiac disease Unknown Hypertension Unknown Hearing loss Unknown mother Coronary artery disease Unknown Cerebrovascular accident (CVA) Unknown Advance Directives No Advanced Directives Records Found Advance Directive Response Recorded Date/ Time Name of Medical Power of Cigarette And Filter Chief Inspector POA SYD February 24, 2022 1:34pm Advance Directives Yes January 09, 2020 8:15am Living Will Yes February 24 1:34pm Power of Cigarette And Filter Chief Inspector Yes February 24, 2022 1:34pm Advance Directive Response Recorded Date/ Time Name of Medical Power of Cigarette And Filter Chief Inspector AYANNAA SYD February 24, 2022 12:34pm Advance Directives Yes January 09, 2020 7:15am Living Will Yes February 24 12:34pm Power of Cigarette And Filter Chief Inspector Yes February 24, 2022 12:34pm Advance Directive Response Recorded Date/ Time Name of Medical Power of Cigarette And Filter Chief Inspector AYANNAA SYD February 24, 2022 12:34pm Advance Directives on File No Luc 2022 9:00am Advance Directives Yes June 03, 2022 9:00am Living Will Yes June 03 9:00am Power of Cigarette And Filter Chief Inspector Yes June 03, 2022 9:00am Advance Directive Response Recorded Date/ Time Name of Medical Power of Cigarette And Filter Chief Inspector POA SYD TRONCOSO April 06, 2023 8:14am Advance Directives Yes June 03, 2022 9:00am Living Will Yes April 06, 023 8:14am Power of Cigarette And Filter Chief Inspector Yes April 06, 2023 8:14am Advance Directive Response Recorded Date/ Time Advance Directives Yes June 03, 2022 10:00am Advance Directive Response Recorded Date/ Time Living Will No September 29, 2024 1 0:00am Do you have a Healthcare Power of Cigarette And Filter Chief Inspector? No September 29, 2024 10:00am Advance Directives No September 29 10:00am Advance Directive Response Recorded Date/ Time Living Will No September 29, 2024 1 0:00am Do you have a Healthcare Power of Cigarette And Filter Chief Inspector? No September 29, 2024 10:00am Advance Directives on File No October 31, 2024 11:16am Living Will No November 01, 2024 8:52am Do you have a Healthcare Power of Cigarette And Filter Chief Inspector? No November 01, 2024 8:52am Advance Directives No November 01 8:52am Advance Directive Response Recorded Date/ Time Living Will No September 29, 2024 1 0:00am Do you have a Healthcare Power of Cigarette And Filter Chief Inspector? No September 29, 2024 10:00am Advance Directives on File No October 31, 2024 11:16am Living Will No November 01, 2024 8:52am Do you have a Healthcare Power of Cigarette And Filter Chief Inspector? No November 01, 2024 8:52am Advance Directives No November 01 8:52am Advance Directives on File No November 08, 2024 12:06pm Living Will Yes November 08, 2024 1 2:26pm Do you have a Healthcare Power of Cigarette And Filter Chief Inspector? Yes November 08, 2024 12:26pm Advance Directive Response Recorded Date/ Time Living Will No September 29, 2024 1 0:00am Do you have a Healthcare Power of Cigarette And Filter Chief Inspector? No September 29, 2024 10:00am Advance Directives on File No October 31, 2024 11:16am Living Will No November 01, 2024 8:52am Do you have a Healthcare Power of Cigarette And Filter Chief Inspector? No November 01, 2024 8:52am Advance Directives No November 01 8:52am Advance Directives on File No November 08, 2024 12:06pm Living Will Yes November 08, 2024 1 2:26pm Do you have a Healthcare Power of Cigarette And Filter Chief Inspector? Yes November 08, 2024 12:26pm Do you have a Healthcare Power of Cigarette And Filter Chief Inspector? No January 10, 2025 5:07pm Chief Complaint and Reason for Visit Chief Complaint BARRETTS Reason for Visit Talamantes's esophagus Encounter for screening colonoscopy Chief Complaint 2 WK FU OVERDUE FOR OV CHEST PAIN, CAD CHEST PAIN, CAD Reason for Visit Diverticular disease Gastroesophageal reflux disease Atherosclerotic heart disease of [place] coronary artery without angina pectoris Cardiomyopathy Chest pain in adult Essential hypertension Hyperlipidemia Chief Complaint 2 WK FU OVERDUE FOR OV CHEST PAIN, CAD CHEST PAIN, CAD R94.39 R07.9 I25.10 I10 E78.5 R94.39 R07.9 I25.10 I10 E78.5 Reason for Visit Diverticular disease Gastroesophageal reflux disease Atherosclerotic heart disease of [place] coronary artery without angina pectoris Cardiomyopathy Chest pain in adult Essential hypertension Hyperlipidemia Chief Complaint INGUINAL HERNIA Lap Robotic right Inguinal Hernia with mesh Lap Robotic right Inguinal Hernia with mesh Reason for Visit Right inguinal herni a Chief Complaint Admit Date EDEMA, WORSENING HEART MURMUR June [id number] 1:47pm STAT CHEST PAIN SOB August 03, 2024 12: 08pm Chief Complaint Admit Date EDEMA, WORSENING HEART MURMUR June 112024 1:47pm STAT CHEST PAIN SOB August 03, 2024 12: 08pm Early fu/having many symptoms August 17, 2024 12:55pm INT LAB ORDERS August 17, 2024 1:42 pm Reason for Visit Admit Date Dyspnea on exertion August 17, 2024 12:5 5pm Nonrheumatic aortic (valve) insufficienc y August 17, 2024 12:55pm Atherosclerotic heart diseas e of [place] coronary artery without angina pectoris August 17, 2024 12:55pm Cardiomyopathy August 17, 2024 12:5 5pm Essential hypertension August 17, 2024 1 2:55pm Hyperlipidemia August 17, 2024 12:5 5pm Chief Complaint Admit Date EDEMA, [facility] June 112024 1:47pm STAT CHEST PAIN SOB August 03, 2024 12: 08pm Early fu/having many symptoms August 17, 2024 12:55pm INT LAB ORDERS August 17, 2024 1:42 pm CHEST PAIN September 08, 2024 6:02am CHEST PAIN September 08, 2024 3:25pm Chief Complaint Admit Date EDEMA, [facility] June 112024 1:47pm STAT CHEST PAIN SOB August 03, 2024 12: 08pm Early fu/having many symptoms August 17, 2024 12:55pm INT LAB ORDERS August 17, 2024 1:42 pm CHEST PAIN September 08, 2024 6:02am CHEST PAIN September 08, 2024 3:25pm ABN STRESS September 29, 2024 1:49p m Referral Order October 05, 2024 4:47p m Chief Complaint Admit Date EDEMA, [facility] June 112024 1:47pm STAT CHEST PAIN SOB August 03, 2024 12: 08pm Early fu/having many symptoms August 17, 2024 12:55pm INT LAB ORDERS August 17, 2024 1:42 pm CHEST PAIN September 08, 2024 6:02am CHEST PAIN September 08, 2024 3:25pm ABN STRESS September 29, 2024 1:49p m Referral Order October 05, 2024 4:47p m S/P CATH ON 09/29October 13, 2024 9:45a m Chief Complaint Admit Date STAT CHEST PAIN SOB August 03, 2024 12: 08pm Early fu/having many symptoms August 17, 2024 12:55pm INT LAB ORDERS August 17, 2024 1:42 pm CHEST PAIN September 08, 2024 6:02am CHEST PAIN September 08, 2024 3:25pm ABN STRESS September 29, 2024 1:49p m Referral Order October 05, 2024 4:47p m S/P CATH ON 09/29October 13, 2024 9:45a m CAD, CHEST PAIN November 01, 2024 11:1 9am Referral Order November 02, 2024 8:19 am Reason for Visit Admit Date Dyspnea on exertion August 17, 2024 12:5 5pm Nonrheumatic aortic (valve) insufficienc y August 17, 2024 12:55pm Atherosclerotic heart diseas e [place] coronary artery without angina pectoris August 17, 2024 12:55pm Cardiomyopathy August 17, 2024 12:5 5pm Essential hypertension August 17, 2024 1 2:55pm Hyperlipidemia August 17, 2024 12:5 5pm Aortic stenosis October 13, 2024 9:45a m CAD (coronary artery disease) October 13, 2024 9:45am Dyslipidemia October 13, 2024 9:45a m History of recurrent deep vein thrombosi s (DVT) October 13, 2024 9:45am Hypertension October 13, 2024 9:45a m Nonischemic cardiomyopathy October 13 9:45am Reason for Visit Admit Date Dyspnea on exertion August 17, 2024 12:5 5pm Nonrheumatic aortic (valve) insufficienc y August 17, 2024 12:55pm Atherosclerotic heart diseas e [place] coronary artery without angina pectoris August 17, 2024 12:55pm Cardiomyopathy August 17, 2024 12:5 5pm Essential hypertension August 17, 2024 1 2:55pm Hyperlipidemia August 17, 2024 12:5 5pm Aortic stenosis October 13, 2024 9:45a m CAD (coronary artery disease) October 13, 2024 9:45am History of recurrent deep vein thrombosi s (DVT) October 13, 2024 9:45am Hypertension October 13, 2024 9:45a m Nonischemic cardiomyopathy October 13 9:45am Dyslipidemia October 13, 2024 9:45a m Chief Complaint Admit Date STAT CHEST PAIN SOB August 03, 2024 12: 08pm Early fu/having many symptoms August 17, 2024 12:55pm INT LAB ORDERS August 17, 2024 1:42 pm CHEST PAIN September 08, 2024 6:02am CHEST PAIN September 08, 2024 3:25pm ABN STRESS September 29, 2024 1:49p m Referral Order October 05, 2024 4:47p m S/P CATH ON 09/29October 13, 2024 9:45a m CAD, CHEST PAIN November 01, 2024 11:1 9am Referral Order November 02, 2024 8:19 am PCI w/stenting November 08, 2024 11:51 am S/P ([facility] 11/01) November 15, 2024 9:53a m Reason for Visit Admit Date Dyspnea on exertion August 17, 2024 12:5 5pm Nonrheumatic aortic (valve) insufficienc y August 17, 2024 12:55pm Atherosclerotic heart diseas e [place] coronary artery without angina pectoris August 17, 2024 12:55pm Cardiomyopathy August 17, 2024 12:5 5pm Essential hypertension August 17, 2024 1 2:55pm Hyperlipidemia August 17, 2024 12:5 5pm Aortic stenosis October 13, 2024 9:45a m CAD (coronary artery disease) October 13, 2024 9:45am History of recurrent deep vein thrombosi s (DVT) October 13, 2024 9:45am Hypertension October 13, 2024 9:45a m Nonischemic cardiomyopathy October 13 9:45am Dyslipidemia October 13, 2024 9:45a m Aortic stenosis November 15, 2024 9:53a m CAD (coronary artery disease) November 15, 2024 9:53am History of recurrent deep vein thrombosi s (DVT) November 15, 2024 9:53am Hypertension November 15, 2024 9:53a m Nonischemic cardiomyopathy November 15 9:53am Dyslipidemia November 15, 2024 9:53a m Reason for Visit Admit Date Dyspnea on exertion August 17, 2024 12:5 5pm Nonrheumatic aortic (valve) insufficienc y August 17, 2024 12:55pm Atherosclerotic heart diseas [place] coronary artery without angina pectoris August 17, 2024 12:55pm Cardiomyopathy August 17, 2024 12:5 5pm Essential hypertension August 17, 2024 1 2:55pm Hyperlipidemia August 17, 2024 12:5 5pm Aortic stenosis October 13, 2024 9:45a m CAD (coronary artery disease) October 13, 2024 9:45am Dyslipidemia October 13, 2024 9:45a m History of recurrent deep vein thrombosi s (DVT) October 13, 2024 9:45am Hypertension October 13, 2024 9:45a m Nonischemic cardiomyopathy October 13 9:45am Aortic stenosis November 15, 2024 9:53a m CAD (coronary artery disease) November 15, 2024 9:53am Dyslipidemia November 15, 2024 9:53a m History of recurrent deep vein thrombosi s (DVT) November 15, 2024 9:53am Hypertension November 15, 2024 9:53a m Nonischemic cardiomyopathy November 15 9:53am Chief Complaint Admit Date STAT CHEST PAIN SOB August 03, 2024 12: 08pm Early fu/having many symptoms August 17, 2024 12:55pm INT LAB ORDERS August 17, 2024 1:42 pm CHEST PAIN September 08, 2024 6:02am CHEST PAIN September 08, 2024 3:25pm ABN STRESS September 29, 2024 1:49p m Referral Order October 05, 2024 4:47p m S/P CATH ON 09/29October 13, 2024 9:45a m CAD, CHEST PAIN November 01, 2024 11:1 9am Referral Order November 02, 2024 8:19 am PCI w/stenting November 08, 2024 11:51 am S/P ([facility] 11/01) November 15, 2024 9:53a m PCI with stenting November 30, 2024 3:15 pm Patient having swelling issues - OK'd pe r JHR December 01, 2024 1:04pm Amb Documentation December 01, 2024 1:16 pm Reason for Visit Admit Date Dyspnea on exertion August 17, 2024 12:5 5pm Nonrheumatic aortic (valve) insufficienc y August 17, 2024 12:55pm Atherosclerotic heart diseas [place] coronary artery without angina pectoris August 17, 2024 12:55pm Cardiomyopathy August 17, 2024 12:5 5pm Essential hypertension August 17, 2024 1 2:55pm Hyperlipidemia August 17, 2024 12:5 5pm Aortic stenosis October 13, 2024 9:45a m CAD (coronary artery disease) October 13, 2024 9:45am Dyslipidemia October 13, 2024 9:45a m History of recurrent deep vein thrombosi s (DVT) October 13, 2024 9:45am Hypertension October 13, 2024 9:45a m Nonischemic cardiomyopathy October 13 9:45am Aortic stenosis November 15, 2024 9:53a m CAD (coronary artery disease) November 15, 2024 9:53am Dyslipidemia November 15, 2024 9:53a m History of recurrent deep vein thrombosi s (DVT) November 15, 2024 9:53am Hypertension November 15, 2024 9:53a m Nonischemic cardiomyopathy November 15 9:53am Dyspnea on exertion December 01, 2024 1:04 pm Aortic stenosis December 01, 2024 1:04 pm CAD (coronary artery disease) December 01, 2024 1:04pm Dyslipidemia December 01, 2024 1:04 pm History of recurrent deep vein thrombosi s (DVT) December 01, 2024 1:04pm Hypertension December 01, 2024 1:04 pm Nonischemic cardiomyopathy December 01 1:04pm Chief Complaint Admit Date Early fu/having many symptoms August 17, 2024 12:55pm INT LAB ORDERS August 17, 2024 1:42 pm CHEST PAIN September 08, 2024 6:02am CHEST PAIN September 08, 2024 3:25pm ABN STRESS September 29, 2024 1:49p m Referral Order October 05, 2024 4:47p m S/P CATH ON 09/29October 13, 2024 9:45a m CAD, CHEST PAIN November 01, 2024 11:1 9am Referral Order November 02, 2024 8:19 am PCI w/stenting November 08, 2024 11:51 am S/P ([facility] 11/01) November 15, 2024 9:53a m Patient having swelling issues - OK'd pe r JHR December 01, 2024 1:04pm Amb Documentation December 01, 2024 1:16 pm INT LAB ORDERS December 01, 2024 1:59 pm PCI with stenting December 02, 2024 3:15 pm Chief Complaint Admit Date Early fu/having many symptoms August 17, 2024 12:55pm INT LAB ORDERS August 17, 2024 1:42 pm CHEST PAIN September 08, 2024 6:02am CHEST PAIN September 08, 2024 3:25pm ABN STRESS September 29, 2024 1:49p m Referral Order October 05, 2024 4:47p m S/P CATH ON 09/29October 13, 2024 9:45a m CAD, CHEST PAIN November 01, 2024 11:1 9am Referral Order November 02, 2024 8:19 am PCI w/stenting November 08, 2024 11:51 am S/P ([facility] 11/01) November 15, 2024 9:53a m Patient having swelling issues - OK'd pe r JHR December 01, 2024 1:04pm Amb Documentation December 01, 2024 1:16 pm INT LAB ORDERS December 01, 2024 1:59 pm PCI with stenting December 07, 2024 3:15 pm Chief Complaint Admit Date CHEST PAIN September 08, 2024 6:02am CHEST PAIN September 08, 2024 3:25pm ABN STRESS September 29, 2024 1:49p m Referral Order October 05, 2024 4:47p m S/P CATH ON 09/29October 13, 2024 9:45a m CAD, CHEST PAIN November 01, 2024 11:1 9am Referral Order November 02, 2024 8:19 am PCI w/stenting November 08, 2024 11:51 am S/P ([facility] 11/01) November 15, 2024 9:53a m Patient having swelling issues - OK'd pe r JHR December 01, 2024 1:04pm Amb Documentation December 01, 2024 1:16 pm INT LAB ORDERS December 01, 2024 1:59 pm PCI with stenting December 07, 2024 3:15 pm dizziness December 13, 2024 7:4 8am PCI with stenting December 21, 2024 3: 15pm Reason for Visit Admit Date Aortic stenosis October 13, 2024 9:45a m CAD (coronary artery disease) October 13, 2024 9:45am Dyslipidemia October 13, 2024 9:45a m History of recurrent deep vein thrombosi s (DVT) October 13, 2024 9:45am Hypertension October 13, 2024 9:45a m Nonischemic cardiomyopathy October 13 9:45am Aortic stenosis November 15, 2024 9:53a m CAD (coronary artery disease) November 15, 2024 9:53am Dyslipidemia November 15, 2024 9:53a m History of recurrent deep vein thrombosi s (DVT) November 15, 2024 9:53am Hypertension November 15, 2024 9:53a m Nonischemic cardiomyopathy November 15 9:53am Dyspnea on exertion December 01, 2024 1:04 pm Aortic stenosis December 01, 2024 1:04 pm CAD (coronary artery disease) December 01, 2024 1:04pm Dyslipidemia December 01, 2024 1:04 pm History of recurrent deep vein thrombosi s (DVT) December 01, 2024 1:04pm Hypertension December 01, 2024 1:04 pm Nonischemic cardiomyopathy December 01 1:04pm Additional Source Comments (unrecognized sect ion and content) No Status Records FoundNo Status Records FoundNo Status Records FoundNo Status Records FoundNo Status Records Found INFORMATION SOURCE (unrecogn ized section and content) DATE CREATED AUTHOR 01/23/2018 [facility] DATE CREATED AUTHOR AUTHOR'S ORGANIZ ATION 01/23/2018 [facility] DATE CREATED AUTHOR AUTHOR'S ORGANIZ ATION 02/21/2023 [facility] DATE CREATED AUTHOR AUTHOR'S ORGANIZ ATION 06/13/2024 [facility] DATE CREATED AUTHOR AUTHOR'S ORGANIZ ATION 02/03/2025 [facility] Team (unrecognized sect ion and content) Team Status: Active Member Role Status Dates Dr. Yaz Zepeda MD Family Provider Active Dr. Yaz Zepeda MD Primary Care Provider Active Team Status: Inactive Member Role Status Dates Dr. Yaz Zepeda MD Primary Care Provider, [place] Provider Active Patricia Street M[employer]ES [employer] CARAMEL OPERATOR, M[employer]ASSES [employer] CAR[employer]EL OPERATOR-C Attending Provider Active Team Status: Active Member Role Status Dates Dr. Yaz Zepeda MD Primary Care Provider, [place] Provider Active Dr. Reynaldo Jj DO Attending Provider, Other Prov ider Active Team Status: Inactive Member Role Status Dates Dr. Yaz Zepeda MD Primary Care Provider, Referrin g Provider Active Dr. Ciro Torres MD Attending Provider Active Team Status: Active Member Role Status Dates Dr. Yaz Zepeda MD Primary Care Provider Active Dr. Ciro Torres MD Other Provider Active Dr. Ciro Torres MD Attending Provider, Referring Provider Active Team Status: Active Member Role Status Dates Dr. Yaz Zepeda MD Primary Care Provider Active Dr. Ciro Torres MD Attending Provid er, Referring Provider, Other Provider Active Team Status: Inactive Member Role Status Dates Dr. Yaz Zepeda MD Primary Care Provider, Referrin g Provider Active Dr. Reynaldo Jj DO Attending Provider Active Team Status: Inactive Member Role Status Dates Dr. Yaz Zepeda MD Primary Care Provider Active Dr. Ciro Torres MD Attending Provider Active Team Status: Inactive Member Role Status Dates Dr. Yaz Zepeda MD Primary Care Provider Active Dr. Ciro Torres MD Attending Provider, Referring Provider Active Team Status: Inactive Member Role Status Dates Dr. Yaz Zepeda MD Primary Care Provider, Referrin g Provider Active Dr. Daniel Gutiérrez MD Attending Provider Active Team Status: Active Member Role Status Dates Dr. Yaz Zepeda MD Primary Care Provider Active Dr. Daniel Gutiérrez MD Attending Pr ovider, Referring Provider, Other Provider Active Dr. Kiko Oseguera MD Other Provider Active Team Status: Inactive Member Role Status Dates Dr. Yaz Zepeda MD Primary Care Provider Active Dr. Daniel Gutiérrez MD Attending Provider, Referr ing Provider Active Dr. Kiko Oseguera MD Other Provider Active [employer] Supervisor Relationship Specialty Start Date End Date Yaz Zepeda MD [facility] [place] [address] PCP - General 10/29/06 Geovanny Aldridge MD [address] [address] Physician Cardiology 08/26/18 Geovanny Aldridge MD [address] [place], [place] [address] Physician Cardiology 10/14/18 Ciro Torres MD [address] [place], [place] [id number] Physician Cardiology 10/14/18 Team Status: Active Member Role Status Dates Dr. Yaz Zepeda MD Primary Care Provider Active Team Status: Inactive Member Role Status Dates Dr. Yaz Zepeda MD Primary Care Provider Active Start: June 22, 2024 End: June 22, 2024 Dr. Yaz Zepeda MD Attending Provider Active Start: June 22, 2024 End: June 22, 2024 Dr. Yaz Zepeda MD Referring Provider Active Start: June 22, 2024 End: June 22, 2024 Team Status: Active Member Role Status Dates Dr. Yaz Zepeda MD Primary Care Provider Active Start: June 22, 2024 Dr. Geovanny Aldridge MD Attending Provider Active S tart: June 22, 2024 Team Status: Inactive Member Role Status Dates Dr. Yaz Zepeda MD Primary Care Provider Active Start: August 03, 2024 End: August 03, 2024 Dr. Yaz Zepeda MD Attending Provider Active Start: August 03, 2024 End: August 03, 2024 Dr. Yaz Zepeda MD Referring Provider Active Start: August 03, 2024 End: August 03, 2024 Team Status: Inactive Member Role Status Dates Dr. Yaz Zepeda MD Primary Care Provider Active Start: August 17, 2024 End: August 17, 2024 Dr. Yaz Zepeda MD Referring Provider Active Start: August 17, 2024 End: August 17, 2024 Will Vences M[employer]ES [employer] CARAMEL OPERATOR, MOLASSES AND CARAMEL OPERATOR-C Attending Provider Active S tart: August 17, 2024 End: August 17, 2024 Team Status: Inactive Member Role Status Dates Dr. Yaz Zepeda MD Primary Care Provider Active Start: August 17, 2024 End: August 17, 2024 Will Vences M[employer]ASSES [employer] CARAMEL OPERATOR, MOLASSES AND CARAMEL OPERATOR-C Attending Provider Active S tart: August 17, 2024 End: August 17, 2024 Will Vences M[employer]ES [employer] CARAMEL OPERATOR, MOLASSES AND CARAMEL OPERATOR-C Referring Provider Active S tart: August 17, 2024 End: August 17, 2024 Team Status: Inactive Member Role Status Dates Dr. Yaz Zepeda MD Primary Care Provider Active Start: September 08, 2024 End: September 08, 2024 Will Vences MOLASSES AND CARAMEL OPERATOR, MOLASSES AND CARAMEL OPERATOR-C Attending Provider Active S tart: September 08, 2024 End: September 08, 2024 Will Vences MOLASSES AND CARAMEL OPERATOR, MOLASSES AND CARAMEL OPERATOR-C Referring Provider Active S tart: September 08, 2024 End: September 08, 2024 Team Status: Active Member Role Status Dates Dr. Yaz Zepeda MD Primary Care Provider Active Start: September 08, 2024 Will Vences MOLASSES AND CARAMEL OPERATOR, MOLASSES AND CARAMEL OPERATOR-C Referring Provider Active S tart: September 08, 2024 Will Vences MOLASSES AND CARAMEL OPERATOR, MOLASSES AND CARAMEL OPERATOR-C Other Provider Active Start : September 08, 2024 Dr. Oanh Mena MD Attending Provider Active Start: September 08, 2024 Team Status: Inactive Member Role Status Dates Dr. Yaz Zepeda MD Primary Care Provider Active Start: September 29, 2024 End: September 30, 2024 Dr. Oanh Mena MD Admit Provider Active Star t: September 29, 2024 End: September 30, 2024 Dr. Oanh Mena MD Attending Provider Active Start: September 29, 2024 End: September 30, 2024 Dr. Oanh Mena MD Referring Provider Active Start: September 29, 2024 End: September 30, 2024 Team Status: Active Member Role Status Dates Dr. Yaz Zepeda MD Primary Care Provider Active Start: October 05, 2024 Dr. Oanh Mena MD Attending Provider Active Start: October 05, 2024 Team Status: Inactive Member Role Status Dates Dr. Yaz Zepeda MD Primary Care Provider Active Start: September 29, 2024 End: September 30, 2024 Dr. Oanh Mena MD Admit Provider Active Star t: September 29, 2024 End: September 30, 2024 Dr. Oanh Mena MD Attending Provider Active Start: September 29, 2024 End: September 30, 2024 Dr. Oanh Mena MD Referring Provider Active Start: September 29, 2024 End: September 30, 2024 Dr. Oanh Mena MD Other Provider Active Star t: September 29, 2024 Team Status: Inactive Member Role Status Dates Dr. Yaz Zepeda MD Primary Care Provider Active Start: October 13, 2024 End: October 13, 2024 Dr. Yaz eZpeda MD Referring Provider Active Start: October 13, 2024 End: October 13, 2024 Dr. Oanh Mena MD Attending Provider Active Start: October 13, 2024 End: October 13, 2024 Team Status: Active Member Role Status Dates Dr. Yaz Zepeda MD Primary Care Provider Active Start: November 01, 2024 Dr. Oanh Mena MD Admit Provider Active Star t: November 01, 2024 Dr. Oanh Mena MD Attending Provider Active Start: November 01, 2024 Dr. Oanh Mena MD Referring Provider Active Start: November 01, 2024 Team Status: Active Member Role Status Dates Dr. Yaz Zepeda MD Primary Care Provider Active Start: November 02, 2024 Dr. Oanh Mena MD Attending Provider Active Start: November 02, 2024 Team Status: Inactive Member Role Status Dates Dr. Yaz Zepeda MD Primary Care Provider Active Start: November 01, 2024 End: November 02, 2024 Dr. Oanh Mena MD Admit Provider Active Star t: November 01, 2024 End: November 02, 2024 Dr. Oanh Mena MD Attending Provider Active Start: November 01, 2024 End: November 02, 2024 Dr. Oanh Mena MD Referring Provider Active Start: November 01, 2024 End: November 02, 2024 Team Status: Active Member Role/Relationship Status Dates Dr. Yaz Zepeda MD Primary Care Provider Active Team Status: Inactive Member Role/Relationship Status Dates Dr. Yaz Zepeda MD Primary Care Provider Active Start: August 03, 2024 End: August 03, 2024 Dr. Yaz Zepeda MD Attending Provider Active Start: August 03, 2024 End: August 03, 2024 Dr. Yaz Zepeda MD Referring Provider Active Start: August 03, 2024 End: August 03, 2024 Team Status: Inactive Member Role/Relationship Status Dates Dr. Yaz Zepeda MD Primary Care Provider Active Start: August 17, 2024 End: August 17, 2024 Dr. Yaz Zepeda MD Referring Provider Active Start: August 17, 2024 End: August 17, 2024 Will Vences MOLASSES AND CARAMEL OPERATOR, MOLASSES AND CARAMEL OPERATOR-C Attending Provider Active S tart: August 17, 2024 End: August 17, 2024 Team Status: Inactive Member Role/Relationship Status Dates Dr. Yaz Zepeda MD Primary Care Provider Active Start: August 17, 2024 End: August 17, 2024 Will Vences MOLASSES AND CARAMEL OPERATOR, MOLASSES AND CARAMEL OPERATOR-C Attending Provider Active S tart: August 17, 2024 End: August 17, 2024 Will H Roof MOLASSES AND CARAMEL OPERATOR, MOLASSES AND CARAMEL OPERATOR-C Referring Provider Active S tart: August 17, 2024 End: August 17, 2024 Team Status: Inactive Member Role/Relationship Status Dates Dr. Yaz eZpeda MD Primary Care Provider Active Start: September 08, 2024 End: September 08, 2024 Will H Ru MOLASSES AND CARAMEL OPERATOR, MOLASSES AND CARAMEL OPERATOR-C Attending Provider Active S tart: September 08, 2024 End: September 08, 2024 Will H Ru MOLASSES AND CARAMEL OPERATOR, MOLASSES AND CARAMEL OPERATOR-C Referring Provider Active S tart: September 08, 2024 End: September 08, 2024 Team Status: Active Member Role/Relationship Status Dates Dr. Yaz Zepeda MD Primary Care Provider Active Start: September 08, 2024 Will Vences MOLASSES AND CARAMEL OPERATOR, MOLASSES AND CARAMEL OPERATOR-C Referring Provider Active S tart: September 08, 2024 Will H Ru MOLASSES AND CARAMEL OPERATOR, MOLASSES AND CARAMEL OPERATOR-C Other Provider Active Start : September 08, 2024 Dr. Oanh Mena MD Attending Provider Active Start: September 08, 2024 Team Status: Inactive Member Role/Relationship Status Dates Dr. Yaz Zepeda MD Primary Care Provider Active Start: September 29, 2024 End: September 30, 2024 Dr. Oanh Mena MD Admit Provider Active Star t: September 29, 2024 End: September 30, 2024 Dr. Oanh Mena MD Attending Provider Active Start: September 29, 2024 End: September 30, 2024 Dr. Oanh Mena MD Referring Provider Active Start: September 29, 2024 End: September 30, 2024 Dr. Oanh Mena MD Other Provider Active Star t: September 29, 2024 Team Status: Active Member Role/Relationship Status Dates Dr. Yaz Zepeda MD Primary Care Provider Active Start: October 05, 2024 Dr. Oanh Mena MD Attending Provider Active Start: October 05, 2024 Team Status: Inactive Member Role/Relationship Status Dates Dr. Yaz Zepeda MD Primary Care Provider Active Start: October 13, 2024 End: October 13, 2024 Dr. Yaz Zepeda MD Referring Provider Active Start: October 13, 2024 End: October 13, 2024 Dr. Oanh Mena MD Attending Provider Active Start: October 13, 2024 End: October 13, 2024 Team Status: Inactive Member Role/Relationship Status Dates Dr. Yaz Zepeda MD Primary Care Provider Active Start: November 01, 2024 End: November 02, 2024 Dr. Oanh Mena MD Admit Provider Active Star t: November 01, 2024 End: November 02, 2024 Dr. Oanh Mena MD Attending Provider Active Start: November 01, 2024 End: November 02, 2024 Dr. Oanh Mena MD Referring Provider Active Start: November 01, 2024 End: November 02, 2024 Team Status: Active Member Role/Relationship Status Dates Dr. Yaz Zepeda MD Primary Care Provider Active Start: November 02, 2024 Dr. Oanh Mena MD Attending Provider Active Start: November 02, 2024 Team Status: Active Member Role/Relationship Status Dates Dr. Yaz Zepeda MD Primary Care Provider Active Start: November 08, 2024 Dr. Oanh Mena MD Attending Provider Active Start: November 08, 2024 Dr. Oanh Mena MD Referring Provider Active Start: November 08, 2024 Team Status: Inactive Member Role/Relationship Status Dates Dr. Yaz Zepeda MD Primary Care Provider Active Start: November 15, 2024 End: November 15, 2024 Dr. Yaz Zepeda MD Referring Provider Active Start: November 15, 2024 End: November 15, 2024 Will Vences MOLASSES AND CARAMEL OPERATOR, MOLASSES AND CARAMEL OPERATOR-C Attending Provider Active S tart: November 15, 2024 End: November 15, 2024 Team Status: Inactive Member Role/Relationship Status Dates Dr. Yaz Zepeda MD Primary Care Provider Active Start: November 08, 2024 End: November 08, 2024 Dr. Oanh Mena MD Attending Provider Active Start: November 08, 2024 End: November 08, 2024 Dr. Oanh Mena MD Referring Provider Active Start: November 08, 2024 End: November 08, 2024 Team Status: Active Member Role/Relationship Status Dates Dr. Yaz Zepeda MD Primary Care Provider Active Start: November 30, 2024 Dr. Oanh Mena MD Attending Provider Active Start: November 30, 2024 Dr. Oanh Mena MD Referring Provider Active Start: November 30, 2024 Team Status: Inactive Member Role/Relationship Status Dates Dr. Yaz Zepeda MD Primary Care Provider Active Start: December 01, 2024 End: December 01, 2024 Dr. Yaz Zepeda MD Referring Provider Active Start: December 01, 2024 End: December 01, 2024 Wlil Vences MOLASSES AND CARAMEL OPERATOR, MOLASSES AND CARAMEL OPERATOR-C Attending Provider Active S tart: December 01, 2024 End: December 01, 2024 Team Status: Active Member Role/Relationship Status Dates Dr. Yaz Zepeda MD Primary Care Provider Active Start: December 01, 2024 Alpa Mays Attending Provider Active Start: 2024 Team Status: Inactive Member Role/Relationship Status Dates Dr. Yaz Zepeda MD Primary Care Provider Active Start: August 17, 2024 End: August 17, 2024 Dr. Yaz Zepeda MD Referring Provider Active Start: August 17, 2024 End: August 17, 2024 Will Vences MOLASSES AND CARAMEL OPERATOR, MOLASSES AND CARAMEL OPERATOR-C Attending Provider Active S tart: August 17, 2024 End: August 17, 2024 Team Status: Inactive Member Role/Relationship Status Dates Dr. Yaz Zepeda MD Primary Care Provider Active Start: August 17, 2024 End: August 17, 2024 Will Vences MOLASSES AND CARAMEL OPERATOR, MOLASSES AND CARAMEL OPERATOR-C Attending Provider Active S tart: August 17, 2024 End: August 17, 2024 Will Vences MOLASSES AND CARAMEL OPERATOR, MOLASSES AND CARAMEL OPERATOR-C Referring Provider Active S tart: August 17, 2024 End: August 17, 2024 Team Status: Inactive Member Role/Relationship Status Dates Dr. Yaz Zepeda MD Primary Care Provider Active Start: September 08, 2024 End: September 08, 2024 Will Vences MOLASSES AND CARAMEL OPERATOR, MOLASSES AND CARAMEL OPERATOR-C Attending Provider Active S tart: September 08, 2024 End: September 08, 2024 Will Vences MOLASSES AND CARAMEL OPERATOR, MOLASSES AND CARAMEL OPERATOR-C Referring Provider Active S tart: September 08, 2024 End: September 08, 2024 Team Status: Active Member Role/Relationship Status Dates Dr. Yaz Zepeda MD Primary Care Provider Active Start: September 08, 2024 Will Vences MOLASSES AND CARAMEL OPERATOR, MOLASSES AND CARAMEL OPERATOR-C Referring Provider Active S tart: September 08, 2024 Will Vences MOLASSES AND CARAMEL OPERATOR, MOLASSES AND CARAMEL OPERATOR-C Other Provider Active Start : September 08, 2024 Dr. Oanh Mena MD Attending Provider Active Start: September 08, 2024 Team Status: Inactive Member Role/Relationship Status Dates Dr. Yaz Zepeda MD Primary Care Provider Active Start: September 29, 2024 End: September 30, 2024 Dr. Oanh Mena MD Admit Provider Active Star t: September 29, 2024 End: September 30, 2024 Dr. aOnh Mena MD Attending Provider Active Start: September 29, 2024 End: September 30, 2024 Dr. Oanh Mena MD Referring Provider Active Start: September 29, 2024 End: September 30, 2024 Dr. Oanh Mena MD Other Provider Active Star t: September 29, 2024 Team Status: Active Member Role/Relationship Status Dates Dr. Yaz Zepeda MD Primary Care Provider Active Start: October 05, 2024 Dr. Oanh Mena MD Attending Provider Active Start: October 05, 2024 Team Status: Inactive Member Role/Relationship Status Dates Dr. Yaz Zepeda MD Primary Care Provider Active Start: October 13, 2024 End: October 13, 2024 Dr. Yaz Zepeda MD Referring Provider Active Start: October 13, 2024 End: October 13, 2024 Dr. Oanh Mena MD Attending Provider Active Start: October 13, 2024 End: October 13, 2024 Team Status: Inactive Member Role/Relationship Status Dates Dr. Yaz Zepeda MD Primary Care Provider Active Start: November 01, 2024 End: November 02, 2024 Dr. Oanh Mena MD Admit Provider Active Star t: November 01, 2024 End: November 02, 2024 Dr. Oanh Mena MD Attending Provider Active Start: November 01, 2024 End: November 02, 2024 Dr. Oanh Mena MD Referring Provider Active Start: November 01, 2024 End: November 02, 2024 Team Status: Active Member Role/Relationship Status Dates Dr. Yaz Zepeda MD Primary Care Provider Active Start: November 02, 2024 Dr. aOnh Mena MD Attending Provider Active Start: November 02, 2024 Team Status: Inactive Member Role/Relationship Status Dates Dr. Yaz Zepeda MD Primary Care Provider Active Start: November 08, 2024 End: November 08, 2024 Dr. Oanh Mena MD Attending Provider Active Start: November 08, 2024 End: November 08, 2024 Dr. Oanh Mena MD Referring Provider Active Start: November 08, 2024 End: November 08, 2024 Team Status: Inactive Member Role/Relationship Status Dates Dr. Yaz Zepeda MD Primary Care Provider Active Start: November 15, 2024 End: November 15, 2024 Dr. Yaz Zepeda MD Referring Provider Active Start: November 15, 2024 End: November 15, 2024 Will Vences MOLASSES AND CARAMEL OPERATOR, MOLASSES AND CARAMEL OPERATOR-C Attending Provider Active S tart: November 15, 2024 End: November 15, 2024 Team Status: Inactive Member Role/Relationship Status Dates Dr. Yaz Zepeda MD Primary Care Provider Active Start: December 01, 2024 End: December 01, 2024 Dr. Yaz Zepeda MD Referring Provider Active Start: December 01, 2024 End: December 01, 2024 Will Vences MOLASSES AND CARAMEL OPERATOR, MOLASSES AND CARAMEL OPERATOR-C Attending Provider Active S tart: December 01, 2024 End: December 01, 2024 Team Status: Active Member Role/Relationship Status Dates Dr. Yaz Zepeda MD Primary Care Provider Active Start: December 01, 2024 Alpa Mays Attending Provider Active Start: 2024 Team Status: Inactive Member Role/Relationship Status Dates Dr. Yaz Zepeda MD Primary Care Provider Active Start: December 01, 2024 End: December 01, 2024 Will Vences MOLASSES AND CARAMEL OPERATOR, MOLASSES AND CARAMEL OPERATOR-C Attending Provider Active S tart: December 01, 2024 End: December 01, 2024 Will Vences MOLASSES AND CARAMEL OPERATOR, MOLASSES AND CARAMEL OPERATOR-C Referring Provider Active S tart: December 01, 2024 End: December 01, 2024 Team Status: Active Member Role/Relationship Status Dates Dr. Yaz Zepeda MD Primary Care Provider Active Start: December 02, 2024 Dr. Oanh Mena MD Attending Provider Active Start: December 02, 2024 Dr. Oanh Mena MD Referring Provider Active Start: December 02, 2024 Team Status: Inactive Member Role/Relationship Status Dates Dr. Yaz Zepeda MD Primary Care Provider Active Start: December 07, 2024 End: December 08, 2024 Dr. Oanh Mena MD Attending Provider Active Start: December 07, 2024 End: December 08, 2024 Dr. Oanh Mena MD Referring Provider Active Start: December 07, 2024 End: December 08, 2024 Team Status: Inactive Member Role/Relationship Status Dates Dr. Yaz Zepeda MD Primary Care Provider Active Start: September 08, 2024 End: September 08, 2024 Will Vences MOLASSES AND CARAMEL OPERATOR, MOLASSES AND CARAMEL OPERATOR-C Attending Provider Active S tart: September 08, 2024 End: September 08, 2024 Will Vences MOLASSES AND CARAMEL OPERATOR, MOLASSES AND CARAMEL OPERATOR-C Referring Provider Active S tart: September 08, 2024 End: September 08, 2024 Team Status: Active Member Role/Relationship Status Dates Dr. Yaz Zepeda MD Primary Care Provider Active Start: September 08, 2024 Will Vences MOLASSES AND CARAMEL OPERATOR, MOLASSES AND CARAMEL OPERATOR-C Referring Provider Active S tart: September 08, 2024 Will Vences MOLASSES AND CARAMEL OPERATOR, MOLASSES AND CARAMEL OPERATOR-C Other Provider Active Start : September 08, 2024 Dr. Oanh Mena MD Attending Provider Active Start: September 08, 2024 Team Status: Inactive Member Role/Relationship Status Dates Dr. Yaz Zepeda MD Primary Care Provider Active Start: September 29, 2024 End: September 30, 2024 Dr. Oanh Mena MD Admit Provider Active Star t: September 29, 2024 End: September 30, 2024 Dr. Oanh Mena MD Attending Provider Active Start: September 29, 2024 End: September 30, 2024 Dr. Oanh Mena MD Referring Provider Active Start: September 29, 2024 End: September 30, 2024 Dr. Oanh Mena MD Other Provider Active Star t: September 29, 2024 Team Status: Active Member Role/Relationship Status Dates Dr. Yaz Zepeda MD Primary Care Provider Active Start: October 05, 2024 Dr. Oanh Mena MD Attending Provider Active Start: October 05, 2024 Team Status: Inactive Member Role/Relationship Status Dates Dr. Yaz Zepeda MD Primary Care Provider Active Start: October 13, 2024 End: October 13, 2024 Dr. Yaz Zepeda MD Referring Provider Active Start: October 13, 2024 End: October 13, 2024 Dr. Oanh Mena MD Attending Provider Active Start: October 13, 2024 End: October 13, 2024 Team Status: Inactive Member Role/Relationship Status Dates Dr. Yaz Zepeda MD Primary Care Provider Active Start: November 01, 2024 End: November 02, 2024 Dr. Oanh Mena MD Admit Provider Active Star t: November 01, 2024 End: November 02, 2024 Dr. Oanh Mena MD Attending Provider Active Start: November 01, 2024 End: November 02, 2024 Dr. Oanh Mena MD Referring Provider Active Start: November 01, 2024 End: November 02, 2024 Team Status: Active Member Role/Relationship Status Dates Dr. Yaz Zepeda MD Primary Care Provider Active Start: November 02, 2024 Dr. Oanh Mena MD Attending Provider Active Start: November 02, 2024 Team Status: Inactive Member Role/Relationship Status Dates Dr. Yaz Zepeda MD Primary Care Provider Active Start: November 08, 2024 End: November 08, 2024 Dr. Oanh Mena MD Attending Provider Active Start: November 08, 2024 End: November 08, 2024 Dr. Oanh Mena MD Referring Provider Active Start: November 08, 2024 End: November 08, 2024 Team Status: Inactive Member Role/Relationship Status Dates Dr. Yaz Zepeda MD Primary Care Provider Active Start: November 15, 2024 End: November 15, 2024 Dr. Yaz Zepeda MD Referring Provider Active Start: November 15, 2024 End: November 15, 2024 Will Vences MOLASSES AND CARAMEL OPERATOR, MOLASSES AND CARAMEL OPERATOR-C Attending Provider Active S tart: November 15, 2024 End: November 15, 2024 Team Status: Inactive Member Role/Relationship Status Dates Dr. Yaz Zepeda MD Primary Care Provider Active Start: December 01, 2024 End: December 01, 2024 Dr. Yaz Zepeda MD Referring Provider Active Start: December 01, 2024 End: December 01, 2024 Will Vences MOLASSES AND CARAMEL OPERATOR, MOLASSES AND CARAMEL OPERATOR-C Attending Provider Active S tart: December 01, 2024 End: December 01, 2024 Team Status: Active Member Role/Relationship Status Dates Dr. Yaz Zepeda MD Primary Care Provider Active Start: December 01, 2024 Alpa Mays Attending Provider Active Start: 2024 Team Status: Inactive Member Role/Relationship Status Dates Dr. Yaz Zepeda MD Primary Care Provider Active Start: December 01, 2024 End: December 01, 2024 Will Vences MOLASSES AND CARAMEL OPERATOR, MOLASSES AND CARAMEL OPERATOR-C Attending Provider Active S tart: December 01, 2024 End: December 01, 2024 Will Vences MOLASSES AND CARAMEL OPERATOR, MOLASSES AND CARAMEL OPERATOR-C Referring Provider Active S tart: December 01, 2024 End: December 01, 2024 Team Status: Inactive Member Role/Relationship Status Dates Dr. Yaz Zepeda MD Primary Care Provider Active Start: December 07, 2024 End: December 08, 2024 Dr. Oanh Mena MD Attending Provider Active Start: December 07, 2024 End: December 08, 2024 Dr. Oanh Mena MD Referring Provider Active Start: December 07, 2024 End: December 08, 2024 Team Status: Inactive Member Role/Relationship Status Dates Dr. Yaz Zepeda MD Primary Care Provider Active Start: December 13, 2024 End: December 13, 2024 Will Vences MOLASSES AND CARAMEL OPERATOR, MOLASSES AND CARAMEL OPERATOR-C Attending Provider Active S tart: December 13, 2024 End: December 13, 2024 Will Vences MOLASSES AND CARAMEL OPERATOR, MOLASSES AND CARAMEL OPERATOR-C Referring Provider Active S tart: December 13, 2024 End: December 13, 2024 Team Status: Active Member Role/Relationship Status Dates Dr. Yaz Zepeda MD Primary Care Provider Active Start: December 13, 2024 Dr. Drew Butcher MD Attending Provider Active S tart: December 13, 2024 Team Status: Active Member Role/Relationship Status Dates Dr. Yaz Zepeda MD Primary Care Provider Active Start: December 21, 2024 Dr. Oanh Mena MD Attending Provider Active Start: December 21, 2024 Dr. Oanh Mena MD Referring Provider Active Start: December 21, 2024 Team Status: Inactive Member Role/Relationship Status Dates Dr. Yaz Zepeda MD Primary Care Provider Active Start: September 29, 2024 End: September 30, 2024 Dr. Oanh Mena MD Admit Provider Active Star t: September 29, 2024 End: September 30, 2024 Dr. Oanh Mena MD Attending Provider Active Start: September 29, 2024 End: September 30, 2024 Dr. Oanh Mena MD Referring Provider Active Start: September 29, 2024 End: September 30, 2024 Dr. Oanh Mena MD Other Provider Active Star t: September 29, 2024 Team Status: Active Member Role/Relationship Status Dates Dr. Yaz Zepeda MD Primary Care Provider Active Start: October 05, 2024 Dr. Oanh Mena MD Attending Provider Active Start: October 05, 2024 Team Status: Inactive Member Role/Relationship Status Dates Dr. Yaz Zepeda MD Primary Care Provider Active Start: October 13, 2024 End: October 13, 2024 Dr. Yaz Zepeda MD Referring Provider Active Start: October 13, 2024 End: October 13, 2024 Dr. Oanh Mena MD Attending Provider Active Start: October 13, 2024 End: October 13, 2024 Team Status: Inactive Member Role/Relationship Status Dates Dr. Yaz Zepeda MD Primary Care Provider Active Start: November 01, 2024 End: November 02, 2024 Dr. Oanh Mena MD Admit Provider Active Star t: November 01, 2024 End: November 02, 2024 Dr. Oanh Mena MD Attending Provider Active Start: November 01, 2024 End: November 02, 2024 Dr. Oanh Mena MD Referring Provider Active Start: November 01, 2024 End: November 02, 2024 Team Status: Active Member Role/Relationship Status Dates Dr. Yaz Zepeda MD Primary Care Provider Active Start: November 02, 2024 Dr. Oanh Mena MD Attending Provider Active Start: November 02, 2024 Team Status: Inactive Member Role/Relationship Status Dates Dr. Yaz Zepeda MD Primary Care Provider Active Start: November 08, 2024 End: November 08, 2024 Dr. Oanh Mena MD Attending Provider Active Start: November 08, 2024 End: November 08, 2024 Dr. Oanh Mena MD Referring Provider Active Start: November 08, 2024 End: November 08, 2024 Team Status: Inactive Member Role/Relationship Status Dates Dr. Yaz Zepeda MD Primary Care Provider Active Start: November 15, 2024 End: November 15, 2024 Dr. Yaz Zepeda MD Referring Provider Active Start: November 15, 2024 End: November 15, 2024 Will Vences MOLASSES AND CARAMEL OPERATOR, MOLASSES AND CARAMEL OPERATOR-C Attending Provider Active S tart: November 15, 2024 End: November 15, 2024 Team Status: Inactive Member Role/Relationship Status Dates Dr. Yaz Zepeda MD Primary Care Provider Active Start: December 01, 2024 End: December 01, 2024 Dr. Yaz Zepeda MD Referring Provider Active Start: December 01, 2024 End: December 01, 2024 Will Vences MOLASSES AND CARAMEL OPERATOR, MOLASSES AND CARAMEL OPERATOR-C Attending Provider Active S tart: December 01, 2024 End: December 01, 2024 Team Status: Active Member Role/Relationship Status Dates Dr. Yaz Zepeda MD Primary Care Provider Active Start: December 01, 2024 Alpa Mays Attending Provider Active Start: 2024 Team Status: Inactive Member Role/Relationship Status Dates Dr. Yaz Zepeda MD Primary Care Provider Active Start: December 01, 2024 End: December 01, 2024 Will Vences MOLASSES AND CARAMEL OPERATOR, MOLASSES AND CARAMEL OPERATOR-C Attending Provider Active S tart: December 01, 2024 End: December 01, 2024 Will Vences MOLASSES AND CARAMEL OPERATOR, MOLASSES AND CARAMEL OPERATOR-C Referring Provider Active S tart: December 01, 2024 End: December 01, 2024 Team Status: Inactive Member Role/Relationship Status Dates Dr. Yaz Zepeda MD Primary Care Provider Active Start: December 07, 2024 End: December 08, 2024 Dr. Oanh Mena MD Attending Provider Active Start: December 07, 2024 End: December 08, 2024 Dr. Oanh Mena MD Referring Provider Active Start: December 07, 2024 End: December 08, 2024 Team Status: Inactive Member Role/Relationship Status Dates Dr. Yaz Zepeda MD Primary Care Provider Active Start: December 13, 2024 End: December 13, 2024 Will Vences MOLASSES AND CARAMEL OPERATOR, MOLASSES AND CARAMEL OPERATOR-C Attending Provider Active S tart: December 13, 2024 End: December 13, 2024 Will Vences MOLASSES AND CARAMEL OPERATOR, MOLASSES AND CARAMEL OPERATOR-C Referring Provider Active S tart: December 13, 2024 End: December 13, 2024 Team Status: Active Member Role/Relationship Status Dates Dr. Yaz Zepeda MD Primary Care Provider Active Start: December 13, 2024 Dr. Drew Butcher MD Attending Provider Active S tart: December 13, 2024 Will Vences MOLASSES AND CARAMEL OPERATOR, MOLASSES AND CARAMEL OPERATOR-C Referring Provider Active S tart: December 13, 2024 Team Status: Inactive Member Role/Relationship Status Dates Dr. Yaz Zepeda MD Primary Care Provider Active Start: December 28, 2024 End: January 08, 2025 Dr. Oanh Mena MD Attending Provider Active Start: December 28, 2024 End: January 08, 2025 Dr. Oanh Mena MD Referring Provider Active Start: December 28, 2024 End: January 08, 2025 Team Status: Inactive Member Role/Relationship Status Dates Dr. Yaz Zepeda MD Primary Care Provider Active Start: January 10, 2025 End: January 10, 2025 Dr. Solange Patel DO Emergency Provider Active Start: January 10, 2025 End: January 10, 2025 Team Status: Inactive Member Role/Relationship Status Dates Dr. Yaz Zepeda MD Primary Care Provider Active Start: January 13, 2025 End: January 13, 2025 Dr. Yaz Zepeda MD Referring Provider Active Start: January 13, 2025 End: January 13, 2025 TIMMY Olmstead Attending Provider Active St art: January 13, 2025 End: January 13, 2025 Care Team (unrecognized sect ion and content) Care Team Personnel Name: YAZ ZEPEDA MD Position: P4 Physician - Primary Care Member Role: Primary Care Physician Address: Address: [address] [place] [address] Care Team Related Persons Name: DESTINEY TRONCOSO Address: Home [id number] [place] [address] Care Team Personnel Name: YAZ ZEPEDA MD Position: P4 Physician - Primary Care Member Role: Primary Care Physician Address: Address: [address] [place] [address] Care Team Related Persons Name: DESTINEY TRONCOSO Address: [id number] [place] [address] Source Comments (unrecognize d section and content) In the event this informatio n is protected by the Federal Confidentiality of Alcohol and Drug Abuse Patient Records regulations: The Federal rules restrict any use of the information to criminally investigate or prosecute any alcohol or drug abuse patient.[facility] Reason for Visit (unrecogniz ed section and content) Reason Comments Cough Sinus, nausea, chill s, dizziness, sob, chest pain when breathing, ELLIE ankle swelling x 5 days Goals (unrecognized section and content) Goals may be documented in a n alternate section FOR RECORDS PERTAINING TO PATIENTS WHO ARE OR HAVE BEEN ENROLLED IN A CHEMICAL DEPENDENCY/SUBSTANCEABUSE PROGRAM, SOME INFORMATION MAY BE OMITTED. This clinical summary was aggregated from multiple sources. Caution should be exercised in using it in the provision of clinical care. This summary normalizes information from multiple sources, and as a consequence, information in this document may materially change the coding, format and clinical context of patient data. In addition, data may be omitted in some cases. CLINICAL DECISIONS SHOULD BE BASED ON THE PRIMARY CLINICAL RECORDS. [facility] [employer] [facility]. provides no warranty or guarantee of the accuracy or completeness of information in this document.
--- NOTE | 2025-02-03 20:15 | CT_ITS ---
PROCEDURE: ABDOMEN/PELVIS WITH CONTRAST 02/03/2025 REASON FOR EXAM: LUQ ABD PAIN TECHNIQUE: Procedure Code: [id number] Modality: CT Procedure: ABDOMEN/PELVIS WITH CONTRAST Coronal and Sagittal reconstruction series were provided. CONTRAST: Isovue 370 VOLUME: 100 mL One or more dose reduction techniques were used (e.g., Automated exposure control, adjustment of the mA and/or kV according to patient size, use of iterative reconstruction technique. RADIATION DOSE SUMMARY: CTDlvol: 19+ 17 mGy DLP: 973 mGycm FINDINGS: The peripheral soft tissues are unremarkable. Degenerative changes of the spine. Moderate atherosclerosis. Normal caliber abdominal aorta. No suspicious lymphadenopathy. Hypodense liver likely indicating steatosis. The gallbladder, pancreas, spleen, and adrenals are unremarkable. Symmetric enhancement of the bilateral kidneys. No hydroureteronephrosis. The urinary bladder is unremarkable. Enlarged prostate. Colonic diverticulosis without focal wall thickening or surrounding inflammatory changes. CT/Abdomen/Pelvis WITH Contrast IMPRESSION: No acute abnormalities of the abdomen or pelvis. Colonic diverticulosis. Hepatic steatosis. Atherosclerosis. Reading Location: [id number]
== END | disposition home or self-care (01) ==
LOC: CT 17:41
PROVIDERS: PCP Family Medicine; Referring Provider Family Medicine; Visit Provider Family Medicine
DX: R10.12 Left upper quadrant pain (principal); R19.7 Diarrhea, unspecified; I25.10 Atherosclerotic heart disease of native coronary artery without angina pectoris; I35.0 Nonrheumatic aortic (valve) stenosis; R07.9 Chest pain, unspecified
CPT/HCPCS: 74177; Q9967